=== PATIENT | female | born 1990 | race Caucasian/White ===

== ENCOUNTER → 2022-09-16 | Outpatient (CLI) | payer SELFPAY ==
--- NOTE | 2022-09-16 18:19 | US_ITS ---
STUDY: FIRST TRIMESTER OBSTETRICAL ULTRASOUND REASON FOR EXAM: Female, 32 years old. VIABILITY--HAS HAD BLEEDING WITH CLOTS TECHNIQUE: Transvaginal US was obtained to better visualized the ovaries. TECHNICAL QUALITY: Adequate. PRIOR ULTRASOUND: None. FINDINGS: There is no demonstrated intrauterine gestational sac. There is no demonstrated yolk sac. The placenta is non-visualized There is no demonstrated embryo ( pole). The estimated gestation age (EGA) by LMP is 7 weeks, 4 days. The estimated date of delivery (ANDREA) by LMP is 10.28.23. The uterus measures 7.8x6.3 cm. There is 11 x 13 mm demonstrated uterine fibroid. The cervix is closed. Endometrial stripe is 14mm. Fluid in the lower uterine segment. There is no intrauterine . The right ovary measures 3.2 x 2.3 cm. There is 20mm right ovarian cyst. There is no visualized right adnexal mass or complex lesion. The left ovary measures 3.2 x 1.6 cm. There is no left ovarian cyst. There is no visualized left adnexal mass or complex lesion. There is no fluid in the cul de sac. US/Transvaginal w/Preg US IMPRESSION: Fluid in the lower uterine segment. There is no intrauterine . Electronically Signed: Paul Fierro MD at 19:10 EDT ,
[2022-09-16 18:59] LABS: hCG Titer Quant., Serum 1017 mIU/mL (1-3)
== END | disposition home or self-care (01) ==
PROVIDERS: Visit Provider Obstetrics & Gynecology
DX: O36.80X0 Pregnancy with inconclusive fetal viability, not applicable or unspecified (principal)
CPT/HCPCS: 36415; 76817; 84702

== ENCOUNTER → 2022-09-18 | Outpatient (CLI) | payer SELFPAY ==
[2022-09-18 14:04] LABS: hCG Titer Quant., Serum 196 mIU/mL (1-3)
== END | disposition home or self-care (01) ==
PROVIDERS: Referring Provider Obstetrics & Gynecology; Visit Provider Obstetrics & Gynecology
DX: O20.0 Threatened abortion (principal)
CPT/HCPCS: 36415; 84702

== ENCOUNTER → 2022-09-24 | Outpatient (CLI) | payer SELFPAY ==
[2022-09-24 14:15] LABS: hCG Titer Quant., Serum 7 mIU/mL (1-3)
== END | disposition home or self-care (01) ==
LOC: LAB 13:22
PROVIDERS: Visit Provider Obstetrics & Gynecology
DX: O03.9 Complete or unspecified spontaneous abortion without complication (principal)
CPT/HCPCS: 36415; 84702

== ENCOUNTER → 2022-10-05 | Outpatient (CLI) | payer SELFPAY ==
[2022-10-05 13:00] LABS: hCG Titer Quant., Serum < 1 mIU/mL (1-3)
== END | disposition home or self-care (01) ==
LOC: LAB 11:17
PROVIDERS: Referring Provider Nurse Practitioner Women's Health; Visit Provider Nurse Practitioner Women's Health
DX: O36.80X0 Pregnancy with inconclusive fetal viability, not applicable or unspecified (principal); X58.XXXA Exposure to other specified factors, initial encounter
CPT/HCPCS: 36415; 84702

== ENCOUNTER → 2023-01-21 | Outpatient (CLI) | payer SELFPAY ==
[2023-01-21 16:55] LABS: Bacteria 0 SEEN /hpf (None Seen); Mucous, Urine 0 SEEN /hpf (<or=2+); Red Blood Cells-Urine 0 SEEN /hpf (0-5); White Blood Cells 0 SEEN /hpf (0-5)
[2023-01-21 17:17] LABS: Color, Urine Yellow (Yellow); Glucose, Dipstick Normal (Normal); Ketone-Dipstick Negative (Negative); Leukocyte Esterase-Dipstick Negative /ul (Negative); Nitrite-Dipstick Negative (Negative); Occult Blood-Urine Negative /ul (Negative); Protein-Dipstick Negative (Negative); Specific Gravity, Urine 1.025 (1.002-1.030); Urine Bilirubin Dipstick Negative (Negative); Urine Clarity Sl. Cloudy (Clear); Urine Urobilinogen Normal (Normal)
[2023-01-21 17:45] LABS: Squamous Epithelial Cells - UA 0-5 SEEN /hpf (5-10)
[2023-01-25 21:12] LABS: Chlamydia By Nucleic Acid AMP Negative (Negative); Gonococcus By Nucleic Acid AMP Negative (Negative)
== END | disposition home or self-care (01) ==
LOC: LABSPEC 15:46
PROVIDERS: Referring Provider Advanced Practice Midwife; Visit Provider Advanced Practice Midwife
DX: O09.90 Supervision of high risk pregnancy, unspecified, unspecified trimester (principal); Z3A.00 Weeks of gestation of pregnancy not specified
CPT/HCPCS: 81001; 87086; 87088; 87491; 87591

== ENCOUNTER → 2023-03-09 | Outpatient (CLI) | payer SELFPAY ==
[2023-03-09 11:02] LABS: Absolute Lymphocyte Count 2.32 X10^3/uL (0.83-4.51); Basophil# 0.05 X10^3/uL; Basophil% 0.5 % (0-1); Eosinophil# 0.15 X10^3/uL; Eosinophils% 1.4 % (0-5); Hematocrit 35.9 % (37-47); Hemoglobin 12.9 g/dL (12.0-15.0); Lymphocyte # 2.32 X10^3/ul (0.83-4.51); Lymphocyte % 20.9 % (19-41); Mean Corp Hgb Conc 35.9 g/dL (32-36); Mean Corpuscular Volume 91.8 fL (81-99); Mean Platelet Vol. 9.8 fl (6.2-12.0); Monocyte# 0.48 X10^3/uL; Monocyte% 4.3 % (0-10); NRBC Flagged by Analyzer 0 % (0-5); Neutrophil # 8.04 X10^3/uL (2.7-7.7); Neutrophil % 72.4 % (47-70); Platelet Count 270 K/mm3 (150-450); RBC Distribution Width CV 12.5 % (11.6-14.6); RBC Distribution Width SD 41.1 fl (35.1-43.9); Red Blood Count 3.91 M/mm3 (4.2-5.4); White Blood Count 11.1 K/mm3 (4.4-11.0)
[2023-03-09 11:13] LABS: Glucose Challenge Gest 1H 50g 116 mg/dL (70-140)
[2023-03-09 15:59] LABS: HIV - WCH Non-Reactive (Nonreactive); Hepatitis B Surface Antigen Non-Reactive (Nonreactive); Hepatitis C Antibody Non-Reactive (Nonreactive); Rubella IgG Reactive (Nonreactive); Syphilis Antibodies Non-reactive
[2023-03-10 06:08] LABS: V-Zoster IgG (Immunity) < 135 index (Immune >165)
== END | disposition home or self-care (01) ==
PROVIDERS: Referring Provider Advanced Practice Midwife; Visit Provider Advanced Practice Midwife
DX: O09.90 Supervision of high risk pregnancy, unspecified, unspecified trimester (principal)
CPT/HCPCS: 36415; 82950; 85025; 86703; 86762; 86780; 86787; 86803; 86850; 86900; 86901; 87340

== ENCOUNTER → 2023-03-29 | Outpatient (CLI) | payer SELFPAY ==
--- NOTE | 2023-03-29 13:16 | US_ITS ---
STUDY: SECOND AND THIRD TRIMESTER OBSTETRICAL ULTRASOUND REASON FOR EXAM: Female, 32 years old anatomy LMP: November 15, 2022. TECHNIQUE: Transabdominal and Transvaginal TECHNICAL QUALITY: Adequate. PRIOR ULTRASOUND: Comparison is made with prior study September 16, 2022. FINDINGS: There is a single intrauterine fetus. The fetus is in an transverse lie with the head on the maternal left side. There is demonstrated cardiac activity with a heart rate of 148 bpm. There is a normal amniotic fluid volume. The largest amniotic fluid pocket measures 4.8 sign of by 5 cm. The amniotic fluid index (KOBY) is within normal limits. The placenta is anterior in location and is not low lying. There are Grade 0 placental changes. The cervix measures 4.3 cm in length. The bilateral adnexal regions are normal. BIOMETRY: BPD: 4.7 cm: 20 weeks, 1 days HC: 16.7 cm: 19 weeks, 3 days AC: 15 cm: 20 weeks, 1 days FL: 3.1 cm: 19 weeks, 4 days CI: 84% FL/BPD: 66% FL/HC: FL/AC: 21% HC/AC: 1.12 age by current US: 19 weeks, 4 days. ANDREA by current US: August 19, 2022. Estimated weight: 325 grams, +/- 49 grams, 88 %. Age by LMP: 19 weeks, 1 days. ANDREA by LMP: August 22, 2022. ANATOMY: Gender: Male Cranium: Normal lateral ventricles. Normal choroid plexus. Normal cerebellum. Normal cisterna magna. Normal face, nose and lips. Chest: Normal 4-chamber heart. Abdomen/Pelvis: Normal diaphragm. Normal stomach. Normal abdominal wall. Normal cord insertion. Normal 3 vessel cord. Normal kidneys. Normal bladder. Spine: Normal cervical spine. Normal thoracic spine. Normal lumbar spine. Normal sacrum. Extremities: Normal bilateral upper extremities. Normal bilateral lower extremities. IMPRESSION: Single live intrauterine gestation with a mean gestational age of 19 weeks and 4 days. Electronically Signed: David Fonseca MD at 10:31 EDT , STUDY: FIRST TRIMESTER OBSTETRICAL ULTRASOUND REASON FOR EXAM: Female, 32 years old . Cervical length. LMP: November 15, 2022 TECHNIQUE: Transvaginal TECHNICAL QUALITY: Adequate. PRIOR ULTRASOUND: None. FINDINGS: Cervical length measures 4.3 cm. US/OB Anatomy w/ Transvaginal IMPRESSION: Cervical length measures 4.3 cm. Electronically Signed: David Fonseca MD at 10:32 EDT ,
== END | disposition home or self-care (01) ==
PROVIDERS: Referring Provider Obstetrics & Gynecology; Visit Provider Obstetrics & Gynecology
DX: Z36.2 Encounter for other antenatal screening follow-up (principal)
CPT/HCPCS: 76805; 76817

== ENCOUNTER → 2023-04-13 | Outpatient (CLI) | payer SELFPAY | END | disposition home or self-care (01) | LOC: LABSPEC 12:07 | PROVIDERS: Referring Provider Obstetrics & Gynecology; Visit Provider Obstetrics & Gynecology | DX: O09.90 Supervision of high risk pregnancy, unspecified, unspecified trimester (principal); Z3A.00 Weeks of gestation of pregnancy not specified | CPT/HCPCS: 87491; 87591 ==

== ENCOUNTER → 2023-06-04 | Outpatient (CLI) | payer SELFPAY ==
[2023-06-04 10:37] LABS: Absolute Lymphocyte Count 2.87 X10^3/uL (0.83-4.51); Absolute Neutrophil Count 9.6 X10^3/uL (2.0-7.7); Basophil# 0.06 X10^3/uL; Basophil% 0.4 % (0-1); Eosinophil# 0.23 X10^3/uL; Eosinophils% 1.7 % (0-5); Hemoglobin 11.1 g/dL (12.0-15.0); Lymphocyte # 2.87 X10^3/ul (0.83-4.51); Lymphocyte % 20.8 % (19-41); Mean Corp Hgb Conc 33.6 g/dL (32-36); Mean Corpuscular Hgb 31.3 pg (27.0-32.0); Mean Platelet Vol. 9.6 fl (6.2-12.0); Monocyte# 0.84 X10^3/uL; Monocyte% 6.1 % (0-10); NRBC Flagged by Analyzer 0 % (0-5); Neutrophil # 9.62 X10^3/uL (2.7-7.7); Neutrophil % 69.6 % (47-70); Platelet Count 284 K/mm3 (150-450); RBC Distribution Width CV 11.9 % (11.6-14.6); RBC Distribution Width SD 39.9 fl (35.1-43.9); Red Blood Count 3.55 M/mm3 (4.2-5.4); White Blood Count 13.8 K/mm3 (4.4-11.0)
[2023-06-04 10:51] LABS: Glucose Challenge Gest 1H 50g 102 mg/dL (70-140)
[2023-06-04 11:38] LABS: HIV - WCH Non-Reactive (Nonreactive); Syphilis Antibodies Non-reactive
== END | disposition home or self-care (01) ==
PROVIDERS: Obstetrics & Gynecology; Referring Provider Obstetrics & Gynecology; Visit Provider Obstetrics & Gynecology
DX: O09.90 Supervision of high risk pregnancy, unspecified, unspecified trimester (principal); Z3A.00 Weeks of gestation of pregnancy not specified
CPT/HCPCS: 36415; 82950; 85025; 86703; 86780; 86850; 86900; 86901

== ENCOUNTER → 2023-08-05 | Outpatient (CLI) | payer SELFPAY ==
--- NOTE | 2023-08-05 16:24 | US_ITS ---
STUDY: SECOND AND THIRD TRIMESTER OBSTETRICAL ULTRASOUND REASON FOR EXAM: Female, 33 years old desires tolac, LMP: November 15, 2022 TECHNIQUE: Transabdominal TECHNICAL QUALITY: Adequate. PRIOR ULTRASOUND: None. FINDINGS: There is a single intrauterine fetus. The fetus is in a cephalic presentation. There is demonstrated cardiac activity with a heart rate of 147 bpm. There is a normal amniotic fluid volume. The largest amniotic fluid pocket measures 4.9 cm. The amniotic fluid index (KOBY) is 13.8 cm. The placenta is anterior in location and is not low lying. There are Grade 1 placental changes. The cervical length was not measured due to the head positioning. The adnexal regions are not visualized. BIOMETRY: BPD: 9.1 cm: 37 weeks, 0 days HC: 34.5 cm: 39 weeks, 6 days AC: 36.2 cm: 40 weeks, 1 days FL: 7.2 cm: 37 weeks, 0 days CI: 74.5 FL/BPD: 79.3 FL/HC: FL/AC: 20 HC/AC: 1.0 age by current US: 38 weeks, 4 days. ANDREA by current US: August 15, 2023. Estimated weight: 3630 grams, +/- 545 grams, 88 %. age by prior US: 38 weeks, 0 days. ANDREA by prior US: August 19, 2023. Age by LMP: 37 weeks, 4 days. ANDREA by LMP: August 22, 2023. US/OB Limited With Biometrics IMPRESSION: Single live uterine gestation with a mean gestational age of 38 weeks. The measurements obtained today with a normal expected range. Electronically Signed: David Fonseca MD at 14:10 EST ,
--- OUTSIDE RECORDS SUMMARY | 2023-08-05 19:32 | XMS RPT_ITS | CCD ---
Author Name Unknown Address [address] [place] [address] Organization [facility] Care Team Providers Care Enforcement Safety Officer Name Role Phone Reema Multani Unavailable Unavailable Reema Multani Unavailable Unavailable Unavailable Reema Multani Unavailable Rj Aj Unavailable Medications Completed/Discontinued Medications Medication Drug Class(es) Dates Sig (Normalized) Sig (Original) Clementine 0.35 MG Oral Tablet (4 sources) Start: 03-04-2021 take 1 tablet by mouth once daily Clementine 0.35 MG Oral Tablet TAKE ONE TABLET BY MOUTH DAILY Quantity: 1 Refills: 12 Ordered: 04-Mar-2021 Rj Aj MD Start : 04-Mar-2021 Active Deblitane 0.35 MG Oral Tablet (1 source) Start: 01-28-2022 take 1 tablet by mouth once daily Deblitane 0.35 MG Oral Tablet TAKE 1 TABLET BY MOUTH DAILY Quantity: 28 Refills: 12 Ordered: 28-Jan-2022 Rj Aj MD Start : 28-Jan-2022 Active 0.4 ml enoxaparin sodium 100 mg/ml prefilled syringe (2 sources) Low Molecular Weight Heparin Start: 02-18-2021 inject 40 mg by subcutaneous injection once daily Enoxaparin Sodium 40 MG/0.4ML Subcutaneous Solution INJECT 40 MG Daily Quantity: 30 Refills: 0 Ordered: 18-Feb-2021 Tang Rios DO Start : 18-Feb-2021 Active Vitamin 27-0.8 MG Oral Tablet (1 source) Vitamin 27-0.8 MG Oral Tablet Refills: 0 DO Active Vitamin 27-0.8 MG Oral Tablet (17 sources) Vitamin 27-0.8 MG Oral Tablet Quantity: 0 Refills: 0 Ordered: 10-Jul-2020 DO Active NEGATED: Highlighted row has not occurred!No Current Medications (1 source) No Current Medications Problems Active Problems Problem Classification Problem Date Documented Da te Episodic/Chronic Coagulation and hemorrhagic disorders (17 sources) Heterozygous Factor V Leiden mutation; Translations: [Primary hypercoagulable state] Chronic distress and abnormal forces of labor (1 source) Arrested active phase of labor; Translations: [Secondary uterine inertia, unspecified as to episode of care or not applicable] 02-05-2021 Episodic Immunizations and screening for infectious disease (20 sources) Patient encounter status; Translations: [Screening examination for venereal disease] Episodic Other aftercare (4 sources) Surgical follow-up; Translations: [Follow-up examination, following surgery, unspecified] Episodic Other complications of ; puerperium affecting management of mother (4 sources) Deliveries by ; Translations: [ delivery, without mention of indication, unspecified as to episode of care or not applicable] Episodic Past or Other Problems Problem Classification Problem Date Documented Da te Episodic/Chronic Unclassified (3 sources) Patient encounter status; Translations: [Encounter for Papanicolaou smear of cervix] Unclassified (18 sources) Finding of menstrual bleeding; Translations: [Menstruation] Results Test Name Value Interpretation Reference Range Facil ity Vital Signs Date Time Vital Sign Value Performing Clinician Facility 08-20-2021 13:58-0500 Body height 162.56 cm Reema Duffyel Work Phone: [employer] Work Phone: 08-20-2021 13:58-0500 Body mass index (BMI) [Ratio] 32.62 kg/m2 Reema Duffyel Work Phone: [employer] Work Phone: 08-20-2021 13:58-0500 Body surface area Derived from formula 1.91 m2 Reema Multani Work Phone: [employer] Work Phone: 02-16-2022 13:58-0500 Body temperature 97.8 [degF] Reema Multani Work Phone: [place] [address] [address] Work Phone: 08-20-2021 13:58-0500 Body weight 86.2 kg Reema Multani Work Phone: [place] [address] [address] Work Phone: 08-20-2021 13:58-0500 Diastolic blood pressure 68 mm[Hg] Reema Multani Work Phone: [place] [address] [address] Work Phone: 08-20-2021 13:58-0500 Systolic blood pressure 114 mm[Hg] Reema Multani Work Phone: [place] [address] [address] Work Phone: 03-04-2021 13:37-0400 Body height 162.56 cm Reema Multani Work Phone: [place] [address] [address] Work Phone: 03-04-2021 13:37-0400 Body mass index (BMI) [Ratio] 32.2 kg/m2 Reema Multani Work Phone: [place] [address] [address] Work Phone: 03-04-2021 13:37-0400 Body surface area Derived from formula 1.9 m2 Reema Multani Work Phone: [place] [address] [address] Work Phone: 03-04-2021 13:37-0400 Body temperature 98.2 [degF] Reema Multani Work Phone: [place] [address] [address] Work Phone: 03-04-2021 13:37-0400 Body weight 85.1 kg Reema Multani Work Phone: [place] [address] [address] Work Phone: 03-04-2021 13:37-0400 Diastolic blood pressure 66 mm[Hg] Reema Multani Work Phone: [place] [address] Work Phone: 03-04-2021 13:37-0400 Systolic blood pressure 110 mm[Hg] Reema Multani Work Phone: [place] [address] Work Phone: 02-18-2021 11:08-0400 Body height 162.56 cm Reema Multani Work Phone: [place] [address] Work Phone: 02-18-2021 11:08-0400 Body mass index (BMI) [Ratio] 31.96 kg/m2 Reema Multani Work Phone: [place] [address] [address] Work Phone: 02-18-2021 11:08-0400 Body surface area Derived from formula 1.9 m2 Reema Multani Work Phone: [place] [address] [address] Work Phone: 02-18-2021 11:08-0400 Body temperature 97.3 [degF] Reema Multani Work Phone: [place] [address] [address] Work Phone: 02-18-2021 11:08-0400 Body weight 84.46 kg Reema Multani Work Phone: [place] [address] [address] Work Phone: 02-18-2021 11:08-0400 Diastolic blood pressure 68 mm[Hg] Reema Duffyel Work Phone: [place] [address] Work Phone: 02-18-2021 11:08-0400 Systolic blood pressure 108 mm[Hg] Reema Multani Work Phone: [place] [address] [address] Work Phone: 02-07-2021 12:29-0400 Body temperature 98.24 [degF] Reema Nerissa Other Phone: [facility] 02-07-2021 12:29-0400 Diastolic blood pressure 82 mm[Hg] Reema Nerissa Other Phone: [facility] 02-07-2021 12:29-0400 Heart rate 93 /min Reema Nerissa Other Phone: [facility] 02-07-2021 12:29-0400 Respiratory rate 16 /min Reema Duffyel Other Phone: [facility] 02-07-2021 12:29-0400 SaO2% (BldA) [Mass fraction] 97 % Reema Multani Other Phone: [facility] 02-07-2021 12:29-0400 Systolic blood pressure 118 mm[Hg] Reema Nerissa Other Phone: [facility] 01-29-2021 08:39-0400 Body height 162.56 cm Reema Multani Work Phone: [place] [address] [address] Work Phone: 01-29-2021 08:39-0400 Body mass index (BMI) [Ratio] 34.44 kg/m2 Reema Maryjo Nerissa Work Phone: [place] [address] [address] Work Phone: 01-29-2021 08:39-0400 Body surface area Derived from formula 1.96 m2 Reema Maryjo Nerissa Work Phone: [facility] [employer] Work Phone: 01-29-2021 08:39-0400 Body temperature 96.9 [degF] Reema Multani Work Phone: [place] [address] [address] Work Phone: 01-29-2021 08:39-0400 Body weight 91 kg Reema Multani Work Phone: [place] [address] [address] Work Phone: 01-29-2021 08:39-0400 Diastolic blood pressure 72 mm[Hg] Reema Multani Work Phone: [place] [address] [address] Work Phone: 01-29-2021 08:39-0400 Systolic blood pressure 102 mm[Hg] Reema Multani Work Phone: [place] [address] [address] Work Phone: 01-21-2021 08:51-0400 Body height 162.56 cm Reema Multani Work Phone: [place] [address] Work Phone: 01-21-2021 08:51-0400 Body mass index (BMI) [Ratio] 34.55 kg/m2 Reema Multani Work Phone: [place] [address] [address] Work Phone: 01-21-2021 08:51-0400 Body surface area Derived from formula 1.96 m2 Reema Multani Work Phone: [place] [address] [address] Work Phone: 01-21-2021 08:51-0400 Body temperature 96.8 [degF] Reema Multani Work Phone: [place] [address] [address] Work Phone: 01-21-2021 08:51-0400 Body weight 91.3 kg Reema Multani Work Phone: [place] [address] [address] Work Phone: 01-21-2021 08:51-0400 Diastolic blood pressure 70 mm[Hg] Reema Maryjo Nerissa Work Phone: [place] [address] Work Phone: 01-21-2021 08:51-0400 Systolic blood pressure 112 mm[Hg] Reema Maryjo Nerissa Work Phone: [place] [address] [address] Work Phone: 01-14-2021 08:51-0400 Body height 162.56 cm Reema Maryjo Duffyel Work Phone: [place] [address] Work Phone: 01-14-2021 08:51-0400 Body mass index (BMI) [Ratio] 33.87 kg/m2 Reema Maryjo Nerissa Work Phone: [place] [address] [address] Work Phone: 01-14-2021 08:51-0400 Body surface area Derived from formula 1.94 m2 Reema Duffyel Work Phone: [place] [address] Work Phone: 01-14-2021 08:51-0400 Body temperature 96.8 [degF] Reema Maryjo Nerissa Work Phone: [place] [address] [address] Work Phone: 01-14-2021 08:51-0400 Body weight 89.5 kg Reema Maryjo Nerissa Work Phone: [place] [address] [address] Work Phone: 01-14-2021 08:51-0400 Diastolic blood pressure 70 mm[Hg] Reema Maryjo Nerissa Work Phone: [place] [address] [address] Work Phone: 01-14-2021 08:51-0400 Systolic blood pressure 110 mm[Hg] Reema M Nerissa Work Phone: [place] [address] Work Phone: 12-31-2020 08:34-0400 Body height 162.56 cm Reema Multani Work Phone: [place] [address] Work Phone: 12-31-2020 08:34-0400 Body mass index (BMI) [Ratio] 33.6 kg/m2 Reema Multani Work Phone: [place] [address] Work Phone: 12-31-2020 08:34-0400 Body surface area Derived from formula 1.94 m2 Reema Multani Work Phone: [place] [address] Work Phone: 12-31-2020 08:34-0400 Body temperature 97.5 [degF] Reema Multani Work Phone: [place] [address] Work Phone: 12-31-2020 08:34-0400 Body weight 88.8 kg Reema Multani Work Phone: [place] [address] [address] Work Phone: 12-31-2020 08:34-0400 Diastolic blood pressure 68 mm[Hg] Reema Multani Work Phone: [place] [address] Work Phone: 12-31-2020 08:34-0400 Systolic blood pressure 112 mm[Hg] Reema Multani Work Phone: [place] [address] Work Phone: 12-17-2020 08:43-0400 Body height 162.56 cm Reema Multani Work Phone: [place] [address] Work Phone: 12-17-2020 08:43-0400 Body mass index (BMI) [Ratio] 33.38 kg/m2 Reema Multani Work Phone: [place] [address] Work Phone: 12-17-2020 08:43-0400 Body surface area Derived from formula 1.93 m2 Reema Multani Work Phone: [place] [address] [address] Work Phone: 12-17-2020 08:43-0400 Body temperature 97.8 [degF] Reema Multani Work Phone: [place] [address] [address] Work Phone: 12-17-2020 08:43-0400 Body weight 88.2 kg Reema Multani Work Phone: [place] [address] [address] Work Phone: 12-17-2020 08:43-0400 Diastolic blood pressure 72 mm[Hg] Reema Multani Work Phone: [place] [address] [address] Work Phone: 12-17-2020 08:43-0400 Systolic blood pressure 110 mm[Hg] Reema Multani Work Phone: [place] [address] [address] Work Phone: 11-19-2020 08:38-0400 Body height 162.56 cm Reema Multani Work Phone: [place] [address] [address] Work Phone: 11-19-2020 08:38-0400 Body mass index (BMI) [Ratio] 32.58 kg/m2 Reema Multani Work Phone: [place] [address] [address] Work Phone: 11-19-2020 08:38-0400 Body surface area Derived from formula 1.91 m2 Reema Multani Work Phone: [facility] [address] Work Phone: 11-19-2020 08:38-0400 Body temperature 97.5 [degF] Reema Multani Work Phone: [facility] [address] Work Phone: 11-19-2020 08:38-0400 Body weight 86.1 kg Reema Multani Work Phone: [facility] [address] Work Phone: 11-19-2020 08:38-0400 Diastolic blood pressure 66 mm[Hg] [facility]ema Multani [facility] [address] Work Phone: 11-19-2020 08:38-0400 Systolic blood pressure 112 mm[Hg] Reema Multani [facility] [address] Work Phone: 08-05-2020 10:59-0500 BMI (Body Mass Index) 29.93 kg/m2 [facility] [address] Work Phone: 08-05-2020 10:59-0500 Body Temperature 97.1 [degF] Reema Multani [facility] [address] Work Phone: 08-05-2020 10:59-0500 Body weight 79.09 kg Reema Multani [facility] [address] Work Phone: 08-05-2020 10:59-0500 BP Diastolic 72 mm[Hg] Reema Multani [facility] [address] Work Phone: 08-05-2020 10:59-0500 BP Systolic 118 mm[Hg] Reema Multani [facility] [address] Work Phone: 08-05-2020 10:590500 BSA (Body Surface Area) 1.85 m2 Reema Multani [facility] [employer] Work Phone: 08-05-2020 10:590500 Height 162.56 cm Reema Multani [facility] [address] Work Phone: Encounters Encounter Date Encounter Type Care Provider Facility Start: 01-28-2022 Rx Renewal Reema benitez Work Phone: [place] [employer] Work Phone: Start: 08-27-2021 Chart Update Reema benitez Work Phone: [place] [employer] Work Phone: Start: 08-20-2021 Periodic preventive med est patient 18-39 yrs Reema Multani Work Phone: [employer] Work Phone: Start: 03-04-2021 Patient encounter procedure Reema Multani Work Phone: [facility] [employer] Work Phone: Start: 02-18-2021 Postop follow up vis it related to original px Reema Multani Work Phone: [employer] [employer] Work Phone: Start: 02-04-2021 End: 02-07-2021 Evaluation and management of inpatient Rj Aj [facility] Start: 02-03-2021 Chart Update Reema Maryjo benitez Work Phone: [facility] [place] [facility] [employer] Work Phone: Start: 01-29-2021 Office outpatient vi sit 15 minutes Reema Duffyel Work Phone: [employer] Work Phone: Start: 01-21-2021 Office outpatient vi sit 15 minutes Reema Sibley Nerissa Work Phone: [facility] [address] [address] Work Phone: Start: 01-16-2021 Chart Update Reema Sibley Nag el Work Phone: [facility] [address] [address] Work Phone: Start: 01-15-2021 Chart Update Reema Maryjo Nag el Work Phone: [facility] [address] [address] Work Phone: Start: 01-14-2021 EPVOB, Provider: Rj Aj, Status: Pen, Time: 8:45 AM Reema Duffyel Work Phone: [place] [address] [address] Work Phone: Start: 01-14-2021 Office outpatient vi sit 15 minutes Reema Duffyel Work Phone: [place] [address] [address] Work Phone: Start: 01-13-2021 AUDIT Reema Maryjo Nag el Work Phone: [place] [address] [address] Work Phone: Start: 12-17-2020 Office outpatient vi sit 15 minutes Reema Maryjo Nerissa Work Phone: [facility] [address] [address] Work Phone: Start: 12-03-2020 Office outpatient vi sit 15 minutes Reema Maryjo Nerissa Work Phone: [facility] [address] [address] Work Phone: Start: 11-27-2020 Chart Update Reema Maryjo Nag el Work Phone: [facility] [address] [address] Work Phone: Start: 11-27-2020 Chart Update Reema Maryjo Nag el Work Phone: [place] [address] [address] Work Phone: Start: 08-05-2020 Patient encounter procedure Reema Multani [employer] Phone: Start: 07-10-2020 Patient encounter procedure [facility] Phone: Cancer cervix - screening done Reema Multani Work Phone: [employer] Phone: Procedures Date Procedure Procedure Detail Performing Clinician Start: 02-04-2021 Antibody screen Plan of Treatment Date Care Activity Detail Author Start: 08-21-2022 Patient encounter procedure ANNUAL, Provider: Rj Aj, Status: Pen, Time: 2:00 PM [employer] Work Phone: Start: 08-20-2021 Patient encounter procedure ANNUAL, Provider: Rj Aj, Status: Pen, Time: 2:00 PM [employer] Work Phone: Start: 03-04-2021 Patient encounter procedure [facility] Start: 03-04-2021 PPV, Provider: Rj Aj, Status: Pen, Time: 1:30 PM PPV, Provider: Rj Aj, Status: Pen, Time: [facility]:30 [facility]: Start: 02-05-2021 End: 02-06-2022 HYDROmorphone Injectable 0.2 mg IntraVenous Push Every 4 Hours PRN ; (DILAUDID)DOSE = 0.4 mg IntraVenous Push Every 3 Hours, PRN breakthrough painClinician Notes: Conditional Order: START AFTER MECHANICAL SHOVEL OPERATOR is discontinued. Start: 05-Feb-2021 End: 05-Feb-2022 Ordered: 04-Feb-2021 Rj Aj R Intent Comments: Conditional Order: START AFTER MECHANICAL SHOVEL OPERATOR is discontinued. [facility] Payers Date Payer Category Payer Unknown Social History Date Type Detail Facility Assertion Tobacco smoking consumption unknown (finding) [employer] Phone: Sexually active Sexually active [place] [address] [address] Work Phone: Tobacco smoking consumption unknown [facility] Functional Status Date Assessment Result Facility Functional observable [facility] NEGATED: Highlighted row Functional performance Functional status health issues are not documented Disease [place] [address] [address] Work Phone: Mental Status Date Assessment Result Facility 02-07-2021 Cognitive functi ons :11 [facility] NEGATED: Highlighted row Cognitive function [Interpretation] Cognitive status health issues are not documented Disease [place] [address] [address] Work Phone: Clinical Note 08-20-2021 Note Date & Type Note Facility 08-20-2021 Note 8 Date of Procedure: 08/20/2021 Pathologist: [facility], Cytology Date Reported: 08/27/2021 Date Received: 08/20/2021 Submitting Physician: RJ AJ MD FINAL CYTOLOGICAL INTERPRETATION A. THINPREP PAP CERVICAL: Specimen adequacy: SATISFACTORY FOR EVALUATION. Quality Indicator: Endocervical/transformation zone component is present. General Categorization: NEGATIVE FOR INTRAEPITHELIAL LESION OR MALIGNANCY. Descriptive Interpretation: CELLULAR EVIDENCE OF PARAKERATOSIS. Ancillary Testing: Specimen does not meet the requisition-stated criteria for HPV testing. See Pap test interpretation above. QC review performed at [facility], [address] [place], [place] [id number] This specimen has been analyzed by the AegisPrep Imaging System ([employer] an automated imaging and review system, which assists the laboratory in evaluating cells on ThinPrep Pap tests. Following automated imaging, selected beltran from every slide were reviewed by a grass farmer and/or pathologist. Electronically Signed Out By [facility], Cytology//[facility] By the signature on this report, the individual or group listed as making the Final Interpretation/Diagnosis certifies that they have reviewed this case. Educational Note: Cervical cytology is a screening procedure primarily for squamous cancers and precursors and has associated false-negative and false-positive results as evidenced by published data. Your patient?s test should be interpreted in this context, together with patient?s history and clinical findings. Regular sampling and follow-up of unexplained clinical signs and symptoms are recommended to minimize false negative results. Clinical History Date of Last Menstrual Period: 08/13/2021 Other Clinical Conditions: HPV Reflex for ASC-US only - Include HPV Genotype Annual Clinical Diagnosis History: Encounter for Papanicolaou smear of cervix - (Z12.4); Pap test, as part of routine gynecological examination - (Z01.419) Source of Specimen A: THINPREP PAP CERVICAL [facility] Department of Pathology [id number] [place] [address] Discharge summary note 02-07-2021 Note Date & Type Note Facility 02-07-2021 Note Send Summary: Discharge Summary Providers: Provider RoleProvider Name AttendingRj Aj Note Recipients: none Discharge: Summary: Admission Date: .04-Feb-2021 05:11:00 Discharge Date: 07-Feb-2021 Attending Physician at Discharge: Rj Aj Admission Reason: Term Final Discharge Diagnoses: Status post delivery Procedures: Primary low transverse section Condition at Discharge: Satisfactory Disposition at Discharge: .Home Vital Signs: T PRBPSpO2 [id number]/[id number]% Date/Time02/07 4:148/6 4:148/6 4:148/6 4:148/6 4:14 Range(36.6C - 37.1C ) (73 - 86 ) (16 - 16 ) (102 - 116 )/ (65 - 73 ) (97% - 98% ) Highest temp of 37.1 C was recorded at 8/5 13:03 Physical Exam: Lungs: Clear bilaterally Heart: Regular rate and rhythm Abdomen: Soft and nontender Hospital Course: Patient underwent a primary section due to failure to progress for a viable male infant on February 04, 2021. She was afebrile throughout hospital course, and regained both bowel and bladder function. She is breast-feeding and was discharged on postop day 2. Discharge Information: and Continuing Care: Lab Results - Pending: None Radiology Results - Pending: None [place] Suicide Risk: negative Discharge Instructions: Activity: Return to normal activity as tolerated Nutrition/Diet: Regular Follow Up Appointments: Follow-Up - OB Provider: Physician/Dept/Service: Rj Aj MD Call to Schedule in: 2 weeks Discharge Medications: [id number] Tylenol and Motrin Electronic Signatures: Rj Aj) (Signed 07-Feb-2021 07:14) Authored: Send Summary, Summary Content, Ongoing Care, Note Completion Last Updated: 07-Feb-2021 07:14 by Rj Aj) [facility] Clinical Note 02-05-2021 Note Date & Type Note Facility 02-05-2021 Note Provider Information : Maternal Delivery Information: Delivery Type: delivery Did this pt receive corticosteroids at any time during this : No Was chorioamnionitis diagnosed during this labor: no What antibiotic(s) were administered during labor and/or pre-incision: Azithromycin, Cefazolin Rupture of Membranes: artificial Spontaneous Labor: no Induction or Scheduled : induction Is patient at delivery >/= to 37 to < 39 completed weeks of gestation: no Delivery Anesthesia: epidural Type: primary Schedule: non-scheduled / non-urgent Pre-op Dx: Failure to progress Presentation/Lie: vertex Vertex Presentation: occiput transverse Skin Incision Type: Pfannenstiel Uterine Incision Type: low transverse Delivery Complications: none QBL (mL): 535 mL Blood Products Transfused during Delivery (indicate number of units given): none Placenta: manual Choose Baby: A Cord Characteristics: no anomalies noted Delayed Cord Clamping (equal to or greater than 30 seconds): no Day of Delivery (Baby A): 04-Feb-2021 Gestational Age at Delivery (wk.days): 39 Term: term 37.0 to 41.6 weeks Live : yes Post-op Dx: same as pre-op dx Delivery Provider: Rj Aj MD Storeroom Attendant: Tang Rios DO Dictation: not applicable - note contains Operative Report Operative Report: OPERATIVE FINDINGS: Viable male delivered. Clear amniotic fluid. Both ovaries and tubes appeared normal. PROCEDURE: Patient brought into the operating room, placed in supine position. She received 2 g of IV Ancef and 500 mg of IV azithromycin, and had the sequential compression devices placed on the lower extremities. After an adequate level of epidural anesthesia, the patient was placed in supine position with lateral hip tilt. Carlos catheter had been placed preoperatively. The abdomen was prepped and draped in usual sterile fashion. Pfannenstiel incision was made through the skin, carried down through fat and fascia. Fascia was incised transversely. Peritoneum was identified, entered sharply and extended in a vertical fashion. Bladder blade was placed. The bladder flap was developed with sharp and blunt dissection. Bladder blade was replaced. A lower uterine incision was made sharply and then extended laterally with bandage scissors, with the batch operator's hand between the scissors and the parts. There was noted clear amniotic fluid. The head was delivered easily, followed by the remainder of the . Cord was doubly clamped and cut, the handed off to awaiting Labor and Delivery nurse. The placenta was noted to be in anterior placement. The placenta was manually removed. The uterus was explored for any remnants of placenta and none were found. The lower uterine incision was closed using 0 chromic in a running interlocking fashion, followed by a second layer of 0 chromic in a running imbricating interlocking fashion.. Hemostasis was found to be excellent. Both ovaries and tubes were inspected and appeared normal in appearance. The lower uterine incision was re-inspected and found to be hemostatic. The peritoneum was then closed using 2-0 Vicryl in a running fashion. Rectus muscle was reapproximated in the midline with 2-0 Vicryl in a running fashion. The fascia was closed using 0-PDS in a running fashion. Subcutaneous layer was thoroughly lavaged with warm normal saline. Hemostasis was obtained with cautery and the subcutaneous layer was closed with 2-0 Vicryl in an interrupted fashion. The skin was closed using 3-0 Monocryl. Quantitative blood loss was 535 ml. Sponge and needle counts were correct x 2. Tylenol suppository was placed rectally. Patient tolerated the procedure well and was taken to PACU in good condition. Pnp: Dr. Rios as needed for appropriate retraction, visualization and delivery of the during the performance of the surgery. Hemorrhage Risk Screen: Hemorrhage Medium Risk Factors (T&S) (2 or more medium risks Go to High Risk section & obtain T&C)IOL with oxytocin or cervical ripening, Hemorrhage Risk Assessmenthemorrhage risks reviewed and additional factors added if applicable Hemorrhage Risk Score HighPatient is at High Risk for an OB hemorrhage. Order Type & Cross. Score Calculation - IT Use Only2 Electronic Signatures: Rj Aj) (Signed 04-Feb-2021 22:44) Authored: Provider Information, Hemorrhage Risk, Note Completion Last Updated: 04-Feb-2021 22:44 by Rj Aj) [facility] Clinical Note 02-04-2021 Note Date & Type Note Facility 02-04-2021 Note HPI/OB History: Care Provider: Rj Aj MD [facility] Descriptive Info: HPI Patient is a 30 year old white female 1 Para 0, EDC February 11, 2021. Patient presents to Labor and Delivery for induction of labor due to maternal discomfort. 01-28-2021 U/S @ 38w 4d, EFW = 3515g (7# 12oz). Patient is Heterozygous for Factor V Leiden. Past medical history: No prior surgery Family history: Noncontributory Social history: Denies smoking or ethanol consumption Review of Systems: Constitutional: No fever or chills Respiratory: No shortness of breath, or cough Cardiovascular: No chest pain or syncope Breasts: No breast pain, no masses, no nipple discharge Gastrointestinal: No nausea, vomiting, or diarrhea, no abdominal pain Genitourinary: No dysuria or frequency Gynecology: Negative except as noted in history of present illness All other: All other systems reviewed and negative for complaint PHYSICAL EXAMINATION: Well-developed, well nourished, in no acute distress, alert and oriented x three, is pleasant and cooperative. HEENT: Clear. Pupils equal, round and reactive to light and accommodation. Extraocular muscles are intact. Oral mucosa pink without exudate. NECK: No lymphadenopathy, no thyromegaly. LUNGS: Clear bilaterally. HEART: Regular rate and rhythm without murmurs. ABDOMEN: Normoactive bowel sounds, soft and nontender, no guarding or rebound tenderness, no CVA tenderness.Limited bedside ultrasound confirms vertex presentation. EXTREMITIES: No clubbing, cyanosis or edema. NEUROLOGIC: Cranial nerves II-XII grossly intact. : Normal external female genitalia, normal vulva, normal vagina. Normal urethral meatus, urethra and bladder. Vaginal exam reveals cervix to be 1 cm dilated, 50% effaced, -2 station. Carlos bulb was placed and inflated with 60 mL of saline. Carlos catheter was then taped to the right inner thigh with traction. Labs: Labs: Labs: Blood Typed Date: 05-Aug-2020 Blood Type: O positive Antibody Screen Results: negative Chlamydia Date: 05-Aug-2020 Chlamydia Results: negative Gonorrhea Date: 05-Aug-2020 Gonorrhea Results: negative Group B Strep Date: 14-Jan-2021 Strep Results: negative GTT (dd-mmm-yy): 13-Nov-2020 GTT result: 173 GTT - Extended (dd-mmm-yy): 27-Nov-2020 GTT - Extended - Fastin GTT - Extended - 1 hour: 133 GTT - Extended - 2 hour: 124 GTT - Extended - 3 hour: 113 HBsAG Date: 05-Aug-2020 HBsAG Results: negative HIV Date: 05-Aug-2020 HIV Results: negative Rubella Date: 05-Aug-2020 Rubella Results: immune Rubella Comments: Result Value POSITIVE Syphilis (mmm-dd-yyyy): 05-Aug-2020 Syphilis Results: negative Antepartum/: Antepartum/PP: Final [id number] Current EGA:39 Patient is > or = 35.0 wks EGAyes Determined byLeopolds EFW (kg)3.515 kilogram(s) EFW (lb)7 pound(s) EFW (oz)12 ounce(s) Presentationcephalic presentation verified bybedside ultrasound, cervical exam Hemorrhage Medium Risk Factors (T&S) (2 or more medium risks Go to High Risk section & obtain T&C)IOL with oxytocin or cervical ripening Hemorrhage Risk Assessmenthemorrhage risk completed on admission Hemorrhage Risk ScorePatient is at Medium Risk for an OB hemorrhage. Order Type & Screen. Score Calculation - IT Use Only1 TOLACno Social History: Social History: Smoking Statusnever smoker (1) Alcohol Usedenies(1) Drug Usedenies (1) Drug 2 Usedenies (1) Allergies: No Known Allergies: Medications Prior to Admission: Outpatient Meds have not been reviewed. Objective: Objective Information: T PRBPSpO2 [id number]/7395% Date/Time8 6:228/3 6:218/3 6:22 Range (95 - 112 ) (111 - 111 )/ (73 - 73 ) (95% - 95% ) Recent Lab Results: Results: CBC: 11/13/2020 14:23 \ Hgb / \ 12.6 / WBC Plt 11.8 H 287 / Hct \ / 37.5 \ RBC: 3.95 L MCV: 95 Assessment and Plan: Problem List: Additional Dx: 39 weeks gestation of : Assessment: 1. Term 2. Induction with Pitocin/carlos 3. Anticipate normal spontaneous vaginal delivery Electronic Signatures: Rj Aj) (Signed 04-Feb-2021 07:25) Authored: HPI/OB History, Labs, Antepartum/PP, Social History, Allergies, Medications Prior to Admission, Objective, Assessment and Plan, Note Completion Last Updated: 04-Feb-2021 07:25 by Rj Aj) References: 1. Data Referenced From Patient Profile - OB v3 04-Feb-2021 06:41 [facility] Evaluation note <item> Note Date & Type Note Facility Evaluation note Cardiovascular: S1 S 2 RRR, no murmursExtremities: no calf tenderness, reflexes 2+Constitutional: alert, orientedRespiratory/Thorax: normal respiratory effort, lungs clear, no wheezes or rhonchi [facility] History of Present illness Narrative Note Date & Type Note Facility History of Present illness Narrative 30-year-old presents for 2-week postop status post primary for arrest. Patient is she is doing well. Pain controlled. Bleeding improving. Bowel and bladder function returned to normal. doing well. Patient is no acute concerns [employer] Work Phone: History of Present illness Narrative Note Date & Type Note Facility History of Present illness Narrative Patient presents for checkup. She is breast and bottlefeeding. She is a heterozygote for factor V Leiden. [employer] Work Phone: History of Present illness Narrative Note Date & Type Note Facility History of Present illness Narrative Presents for annual exam. She voices no complaints and is doing well. Denies any bowel or bladder problems. Denies any breast problems. She is on progesterone only control pills due to history of factor V Leiden. 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 [employer] Work Phone: Hospital Discharge instructions <item><item><item><item> Note Date & Type Note Facility Hospital Discharge instructions Activity:Return to normal activity as tolerated.Patient Instructions:Pelvic Rest: DO NOT place anything in vagina until cleared by OB Provider.Follow-Up - OB Provider:Physician/Dept/Service : Dayana Chaudhry to Schedule in: 2 weeksComments: Incision checkGold Form - Other Clinicians:Other Clinician Instructions: Any woman can have complications after the of a baby including a blood clot, a heart problem, hypertensive disorder/eclampsia, depression, hemorrhage, or infection. Notify all providers of your delivery date up to one year after .* Call 911 or go to nearest emergency room right away if you have: PAIN or pressure in chest; OBSTRUCTED breathing or shortness of breath; SEIZURES; THOUGHTS of hurting yourself or your baby; heart palpitations/racing; change in alertness/confusion.Call your provider if you have: BLEEDING, soaking through a pad/hour, or blood clots the size of an egg or bigger; INCISION (episiotomy stitches or site) that is not healing (increased redness, pain, drainage/pus, or separation); RED or swollen leg/calf that is painful or warm to touch, especially in one leg more than the other; TEMPERATURE of 100.4 F or higher or chills; HEADACHE that does not get better with medicine, rest or hydration, or bad headache with vision changes like spots or flashing lights; increased swelling of face, hands or legs; severe cramps or upper right belly pain; red or swollen breast that is painful or warm to touch; an unusual, foul odor from your vaginal discharge; pain, burning, or difficulty during urination; severe constipation (more than 5 days); feelings of depression (such as depressed mood, loss of interest in enjoyable things, unable to care for yourself, trouble sleeping, lack of appetite, or feeling worthless). If you can t reach your provider or symptoms worsen, call 911 or go to nearest emergency room. *Information obtained from [employer]IZAN s: Save Your Life: Get Care for These POST- Warning SignsOn Behalf on the [facility] Staff, Congratulations on your infant. It was our pleasure to take care of you and your during your stay. We hope during this stay that we have exceeded all of your expectations. We will be calling you in a few days to check up on you and your . Please allow us to speak with you and please ask questions or let us know if you have any concerns. If you need any assistance after you go home please give us a call. Also, please join our [facility] Support Group which meets the wednesday of every month at 10 am in the OB unit. No need to register. If you have any questions please call us at [phone]. Again, Congratulations! Warmest Regards,[facility]'s Maternity Staff [facility] Summary Purpose Family History No Family History Records Found Grandmother Name Dates Details Family history of diabetes m ellitus(V18.0, Z83.3) Status:Active Grandmother Name Dates Details Family history of diabetes m ellitus(V18.0, Z83.3) Status:Active Grandparent Name Dates Details Family history of cerebrovas cular accident (CVA)(V17.1, Z82.3) Status:Active Grandmother Name Dates Details Family history of malignant neoplasm of ovary(V16.41, Z80.41) Status:Active Unknown Family Member Name Dates Details Family history of diabetes m ellitus: Maternal Grandmother, Paternal Grandmother(V18.0, Z83.3) Status:Active Family history of malignant neoplasm of ovary: Grandmother(V16.41, Z80.41) Status:Active Family history of cerebrovas cular accident (CVA): Grandparent(V17.1, Z82.3) Status:Active Unknown Family Member Name Dates Details Family history of diabetes m ellitus: Maternal Grandmother, Paternal Grandmother(V18.0, Z83.3) Status:Active Family history of malignant neoplasm of ovary: Grandmother(V16.41, Z80.41) Status:Active Family history of cerebrovas cular accident (CVA): Grandparent(V17.1, Z82.3) Status:Active Unknown Family Member Name Dates Details Family history of diabetes m ellitus: Maternal Grandmother, Paternal Grandmother(V18.0, Z83.3) Status:Active Family history of malignant neoplasm of ovary: Grandmother(V16.41, Z80.41) Status:Active Family history of cerebrovas cular accident (CVA): Grandparent(V17.1, Z82.3) Status:Active Unknown Family Member Name Dates Details Family history of diabetes m ellitus: Maternal Grandmother, Paternal Grandmother(V18.0, Z83.3) Status:Active Family history of malignant neoplasm of ovary: Grandmother(V16.41, Z80.41) Status:Active Family history of cerebrovas cular accident (CVA): Grandparent(V17.1, Z82.3) Status:Active Unknown Family Member Name Dates Details Family history of diabetes m ellitus: Maternal Grandmother, Paternal Grandmother(V18.0, Z83.3) Status:Active Family history of malignant neoplasm of ovary: Grandmother(V16.41, Z80.41) Status:Active Family history of cerebrovas cular accident (CVA): Grandparent(V17.1, Z82.3) Status:Active Unknown Family Member Name Dates Details Family history of diabetes m ellitus: Maternal Grandmother, Paternal Grandmother(V18.0, Z83.3) Status:Active Family history of malignant neoplasm of ovary: Grandmother(V16.41, Z80.41) Status:Active Family history of cerebrovas cular accident (CVA): Grandparent(V17.1, Z82.3) Status:Active Unknown Family Member Name Dates Details Family history of diabetes m ellitus: Maternal Grandmother, Paternal Grandmother(V18.0, Z83.3) Status:Active Family history of malignant neoplasm of ovary: Grandmother(V16.41, Z80.41) Status:Active Family history of cerebrovas cular accident (CVA): Grandparent(V17.1, Z82.3) Status:Active Unknown Family Member Name Dates Details Family history of diabetes m ellitus: Maternal Grandmother, Paternal Grandmother(V18.0, Z83.3) Status:Active Family history of malignant neoplasm of ovary: Grandmother(V16.41, Z80.41) Status:Active Family history of cerebrovas cular accident (CVA): Grandparent(V17.1, Z82.3) Status:Active Unknown Family Member Name Dates Details Family history of diabetes m ellitus: Maternal Grandmother, Paternal Grandmother(V18.0, Z83.3) Status:Active Family history of malignant neoplasm of ovary: Grandmother(V16.41, Z80.41) Status:Active Family history of cerebrovas cular accident (CVA): Grandparent(V17.1, Z82.3) Status:Active Unknown Family Member Name Dates Details Family history of diabetes m ellitus: Maternal Grandmother, Paternal Grandmother(V18.0, Z83.3) Status:Active Family history of malignant neoplasm of ovary: Grandmother(V16.41, Z80.41) Status:Active Family history of cerebrovas cular accident (CVA): Grandparent(V17.1, Z82.3) Status:Active Unknown Family Member Name Dates Details Family history of diabetes m ellitus: Maternal Grandmother, Paternal Grandmother(V18.0, Z83.3) Status:Active Family history of malignant neoplasm of ovary: Grandmother(V16.41, Z80.41) Status:Active Family history of cerebrovas cular accident (CVA): Grandparent(V17.1, Z82.3) Status:Active Unknown Family Member Name Dates Details Family history of diabetes m ellitus: Maternal Grandmother, Paternal Grandmother(V18.0, Z83.3) Status:Active Family history of malignant neoplasm of ovary: Grandmother(V16.41, Z80.41) Status:Active Family history of cerebrovas cular accident (CVA): Grandparent(V17.1, Z82.3) Status:Active Unknown Family Member Name Dates Details Family history of diabetes m ellitus: Maternal Grandmother, Paternal Grandmother(V18.0, Z83.3) Status:Active Family history of malignant neoplasm of ovary: Grandmother(V16.41, Z80.41) Status:Active Family history of cerebrovas cular accident (CVA): Grandparent(V17.1, Z82.3) Status:Active Unknown Family Member Name Dates Details Family history of diabetes m ellitus: Maternal Grandmother, Paternal Grandmother(V18.0, Z83.3) Status:Active Family history of malignant neoplasm of ovary: Grandmother(V16.41, Z80.41) Status:Active Family history of cerebrovas cular accident (CVA): Grandparent(V17.1, Z82.3) Status:Active Unknown Family Member Name Dates Details Family history of diabetes m ellitus: Maternal Grandmother, Paternal Grandmother(V18.0, Z83.3) Status:Active Family history of malignant neoplasm of ovary: Grandmother(V16.41, Z80.41) Status:Active Family history of cerebrovas cular accident (CVA): Grandparent(V17.1, Z82.3) Status:Active Unknown Family Member Name Dates Details Family history of diabetes m ellitus: Maternal Grandmother, Paternal Grandmother(V18.0, Z83.3) Status:Active Family history of malignant neoplasm of ovary: Grandmother(V16.41, Z80.41) Status:Active Family history of cerebrovas cular accident (CVA): Grandparent(V17.1, Z82.3) Status:Active Unknown Family Member Name Dates Details Family history of diabetes m ellitus: Maternal Grandmother, Paternal Grandmother(V18.0, Z83.3) Status:Active Family history of malignant neoplasm of ovary: Grandmother(V16.41, Z80.41) Status:Active Family history of cerebrovas cular accident (CVA): Grandparent(V17.1, Z82.3) Status:Active Advance Directives No Advanced Directives Records FoundNo Advanced Directives Records FoundNo Advanced Directives Records FoundNo Advanced Directives Records Found Chief Complaint PT HERE TODAY FOR PO VISIT. PT STATES SHE IS HAVING SOME ITCHING AND THE SWELLING IS GOING DOWN. PTFEELS THE INCISION IS HEALING WELL AND HAS NO CONCERNS. PT WANTS TO DISCUSS RESTRICTIONS.Patient is here for her 4 week post visit. Patient had a C/S delivery of a male infant on 02/04/21 at 39 weeks, infant weighted 7 # 10 oz. Patient is currently breast and bottle feeding. Patientwould like to discuss control options. Patient has not resumed sexual activity. Patient denies any post depression. Patient has no concerns at this time.Patient is here for her yearly exam and pap test. LMP: 08/13/2021. Patient does self breast exams and states she is having 2 periods a month. Additional Source Comments INFORMATION SOURCE (unrecogn ized section and content) DATE CREATED AUTHOR AUTHOR'S ORGANIZ ATION 06/06/2021 [facility] DATE CREATED AUTHOR AUTHOR'S ORGANIZ ATION 08/21/2021 [employer] DATE CREATED AUTHOR AUTHOR'S ORGANIZ ATION 02/26/2022 [facility] <item> Privacy Markings (unrecogniz ed section and content) Section Author: Kiah Qureshi PROHIBITION ON REDISCLOSURE OF CONFIDENTIAL INFORMATION This notice accompanies a disclosure of information concerning a client made to you with the consent of such client. FOR RECORDS PERTAINING TO PATIENTS WHO ARE OR HAVE BEEN ENROLLED IN A CHEMICAL DEPENDENCY/SUBSTANCEABUSE PROGRAM, SOME INFORMATION MAY BE OMITTED. This clinical summary was aggregated from multiple sources. Caution should be exercised in using it in the provision of clinical care. This summary normalizes information from multiple sources, and as a consequence, information in this document may materially change the coding, format and clinical context of patient data. In addition, data may be omitted in some cases. CLINICAL DECISIONS SHOULD BE BASED ON THE PRIMARY CLINICAL RECORDS. [facility]. provides no warranty or guarantee of the accuracy or completeness of information in this document.
== END | disposition home or self-care (01) ==
PROVIDERS: Referring Provider Registered Nurse; Visit Provider Registered Nurse
DX: O34.219 Maternal care for unspecified type scar from previous cesarean delivery (principal); E66.9 Obesity, unspecified; Z3A.00 Weeks of gestation of pregnancy not specified; O99.210 Obesity complicating pregnancy, unspecified trimester
CPT/HCPCS: 76816

== ENCOUNTER 2023-08-21 04:28 | Inpatient (IN) | payer SELFPAY ==
[2023-08-21] VITALS (12 sets, daily range): BP systolic 112–136; BP diastolic 62–80; PULSE 94–118; RESP 14; TEMP 36.5–36.9; O2SAT 95–99; BMI 36.3
--- OUTSIDE RECORDS SUMMARY | 2023-08-21 04:11 | XMS RPT_ITS | CCD ---
Author Name Unknown Address [address] [place] [address] Organization [facility] Care Team Providers Care Traffic Survey Technician Name Role Phone Reema Multani Unavailable Unavailable [...] height 162.56 cm Reema Duffyel Work Phone: [employer] Work Phone: 08-20-2021 13:58-0500 Body mass index (BMI) [Ratio] 32.62 kg/m2 Reema Duffyel Work Phone: [employer] Work Phone: 08-20-2021 13:58-0500 Body surface area Derived from formula 1.91 m2 Reema Multani Work Phone: [employer] Work Phone: 02-16-2022 13:58-0500 Body temperature 97.8 [degF] Reema Multani Work Phone: [place] [address] Work Phone: 08-20-2021 13:58-0500 Body weight 86.2 kg Reema Multani Work Phone: [place] [address] Work Phone: 08-20-2021 13:58-0500 Diastolic blood pressure 68 mm[Hg] Reema Multani Work Phone: [place] [address] Work Phone: 08-20-2021 13:58-0500 Systolic blood pressure 114 mm[Hg] Reema Multani Work Phone: [place] [address] [email or web address] Work Phone: 03-04-2021 13:37-0400 Body height 162.56 cm Reema Multani Work Phone: [place] [address] Work Phone: 03-04-2021 13:37-0400 Body mass index (BMI) [Ratio] 32.2 kg/m2 Reema Multani Work Phone: [place] [address] Work Phone: 03-04-2021 13:37-0400 Body surface area Derived from formula 1.9 m2 Reema Multani Work Phone: [place] [address] Work Phone: 03-04-2021 13:37-0400 Body temperature 98.2 [degF] Reema Multani Work Phone: [place] [address] Work Phone: 03-04-2021 13:37-0400 Body weight 85.1 kg Reema Multani Work Phone: [place] [address] Work Phone: 03-04-2021 13:37-0400 Diastolic blood pressure 66 mm[Hg] Reema Multani Work Phone: [place] [address] Work Phone: 03-04-2021 13:37-0400 Systolic blood pressure 110 mm[Hg] Reema Multani Work Phone: [place] [address] Work Phone: 02-18-2021 11:08-0400 Body height 162.56 cm Reema Multani Work Phone: [place] [address] Work Phone: 02-18-2021 11:08-0400 Body mass index (BMI) [Ratio] 31.96 kg/m2 Reema Multani Work Phone: [place] [address] Work Phone: 02-18-2021 11:08-0400 Body surface area Derived from formula 1.9 m2 Reema Multani Work Phone: [place] [address] Work Phone: 02-18-2021 11:08-0400 Body temperature 97.3 [degF] Reema Multani Work Phone: [place] [address] Work Phone: 02-18-2021 11:08-0400 Body weight 84.46 kg Reema Multani Work Phone: [place] [address] Work Phone: 02-18-2021 11:08-0400 Diastolic blood pressure 68 mm[Hg] Reema Duffyel Work Phone: [place] [address] Work Phone: 02-18-2021 11:08-0400 Systolic blood pressure 108 mm[Hg] Reema Multani Work Phone: [employer] [address] [email or web address] Work Phone: 02-07-2021 12:29-0400 Body temperature 98.24 [degF] Reema Nerissa Other Phone: [facility] 02-07-2021 12:29-0400 Diastolic blood pressure 82 mm[Hg] Reema Nerissa Other Phone: [facility] 02-07-2021 12:29-0400 Heart rate 93 /min Reema Nerissa Other Phone: [facility] 02-07-2021 12:29-0400 Respiratory rate 16 /min Reema Duffyel Other Phone: [facility] 02-07-2021 12:29-0400 SaO2% (BldA) [Mass fraction] 97 % Reema Multani Other Phone: [facility] 02-07-2021 12:29-0400 Systolic blood pressure 118 mm[Hg] Reema Nerissa Other Phone: [facility] 01-29-2021 08:39-0400 Body height 162.56 cm Reema Multani Work Phone: [place] [address] [email or web address] Work Phone: 01-29-2021 08:39-0400 Body mass index (BMI) [Ratio] 34.44 kg/m2 Reema Maryjo Nerissa Work Phone: [employer] [address] [email or web address] Work Phone: 01-29-2021 08:39-0400 Body surface area Derived from formula 1.96 m2 Reema Maryjo Nerissa Work Phone: [facility] Work Phone: 01-29-2021 08:39-0400 Body temperature 96.9 [degF] Reema Multani Work Phone: [place] [address] Work Phone: 01-29-2021 08:39-0400 Body weight 91 kg Reema Multani Work Phone: [place] [address] Work Phone: 01-29-2021 08:39-0400 Diastolic blood pressure 72 mm[Hg] Reema Multani Work Phone: [place] [address] Work Phone: 01-29-2021 08:39-0400 Systolic blood pressure 102 mm[Hg] Reema Multani Work Phone: [place] [address] Work Phone: 01-21-2021 08:51-0400 Body height 162.56 cm Reema Multani Work Phone: [place] [address] Work Phone: 01-21-2021 08:51-0400 Body mass index (BMI) [Ratio] 34.55 kg/m2 Reema Multani Work Phone: [place] [address] Work Phone: 01-21-2021 08:51-0400 Body surface area Derived from formula 1.96 m2 Reema Multani Work Phone: [place] [address] Work Phone: 01-21-2021 08:51-0400 Body temperature 96.8 [degF] Reema Multani Work Phone: [place] [address] Work Phone: 01-21-2021 08:51-0400 Body weight 91.3 kg Reema Multani Work Phone: [place] [address] Work Phone: 01-21-2021 08:51-0400 Diastolic blood pressure 70 mm[Hg] Reema Maryjo Nerissa Work Phone: [place] [address] Work Phone: 01-21-2021 08:51-0400 Systolic blood pressure 112 mm[Hg] Reema Maryjo Nerissa Work Phone: [place] [address] Work Phone: 01-14-2021 08:51-0400 Body height 162.56 cm Reema Maryjo Duffyel Work Phone: [place] [address] Work Phone: 01-14-2021 08:51-0400 Body mass index (BMI) [Ratio] 33.87 kg/m2 Reema Maryjo Nerissa Work Phone: [place] [address] Work Phone: 01-14-2021 08:51-0400 Body surface area Derived from formula 1.94 m2 Reema Duffyel Work Phone: [place] [address] Work Phone: 01-14-2021 08:51-0400 Body temperature 96.8 [degF] Reema Maryjo Nerissa Work Phone: [place] [address] Work Phone: 01-14-2021 08:51-0400 Body weight 89.5 kg Reema Maryjo Nerissa Work Phone: [place] [address] Work Phone: 01-14-2021 08:51-0400 Diastolic blood pressure 70 mm[Hg] Reema Maryjo Nerissa Work Phone: [place] [address] Work Phone: 01-14-2021 08:51-0400 Systolic blood pressure 110 mm[Hg] Reema M Nerissa Work Phone: [place] [address] Work Phone: 12-31-2020 08:34-0400 Body height 162.56 cm Reema Multani Work Phone: [place] [address] Work Phone: 12-31-2020 08:34-0400 Body mass index (BMI) [Ratio] 33.6 kg/m2 Reema Multani Work Phone: [place] [address] Work Phone: 12-31-2020 08:34-0400 Body surface area Derived from formula 1.94 m2 Reema Multani Work Phone: [place] [address] Work Phone: 12-31-2020 08:34-0400 Body temperature 97.5 [degF] Reema Multani Work Phone: [place] [address] Work Phone: 12-31-2020 08:34-0400 Body weight 88.8 kg Reema Multani Work Phone: [place] [address] Work Phone: 12-31-2020 08:34-0400 Diastolic blood pressure 68 mm[Hg] Reema Multani Work Phone: [place] [address] Work Phone: 12-31-2020 08:34-0400 Systolic blood pressure 112 mm[Hg] Reema Multani Work Phone: [place] [address] Work Phone: 12-17-2020 08:43-0400 Body height 162.56 cm Reema Multani Work Phone: [place] [address] Work Phone: 12-17-2020 08:43-0400 Body mass index (BMI) [Ratio] 33.38 kg/m2 Reema Multani Work Phone: [place] [address] Work Phone: 12-17-2020 08:43-0400 Body surface area Derived from formula 1.93 m2 Reema Multani Work Phone: [place] [address] [employer] Work Phone: 12-17-2020 08:43-0400 Body temperature 97.8 [degF] Reema Multani Work Phone: [place] [address] [employer] Work Phone: 12-17-2020 08:43-0400 Body weight 88.2 kg Reema Multani Work Phone: [place] [address] [employer] Work Phone: 12-17-2020 08:43-0400 Diastolic blood pressure 72 mm[Hg] Reema Multani Work Phone: [place] [address] [employer] Work Phone: 12-17-2020 08:43-0400 Systolic blood pressure 110 mm[Hg] Reema Multani Work Phone: [place] [address] [employer] Work Phone: 11-19-2020 08:38-0400 Body height 162.56 cm Reema Multani Work Phone: [place] [address] [employer] Work Phone: 11-19-2020 08:38-0400 Body mass index (BMI) [Ratio] 32.58 kg/m2 Reema Multani Work Phone: [place] [address] [employer] Work Phone: 11-19-2020 08:38-0400 Body surface area Derived from formula 1.91 m2 Reema Multani Work Phone: [facility] [address] Work Phone: 11-19-2020 08:38-0400 Body temperature 97.5 [degF] Reema Multani Work Phone: [facility] [address] Work Phone: 11-19-2020 08:38-0400 Body weight 86.1 kg Reema Multani Work Phone: [facility] [address] Work Phone: 11-19-2020 08:38-0400 Diastolic blood pressure 66 mm[Hg] Reema Multani [facility] [address] Work Phone: 11-19-2020 08:38-0400 Systolic blood pressure 112 mm[Hg] Reema Multani Work Phone[facility] [address] Work Phone: 08-05-2020 10:59-0500 BMI (Body Mass Index) 29.93 kg/m2 [facility] [address] Work Phone: 08-05-2020 10:59-0500 Body Temperature 97.1 [degF] Reema Multani [facility] [address] Work Phone: 08-05-2020 10:59-0500 Body weight 79.09 kg Reema Multani [facility] [address] Work Phone: 08-05-2020 10:59-0500 BP Diastolic 72 mm[Hg] Reema Multani [facility] [address] Work Phone: 08-05-2020 10:59-0500 BP Systolic 118 mm[Hg] Reema Multani [facility] [address] Work Phone: 08-05-2020 10:590500 BSA (Body Surface Area) 1.85 m2 Reema Multani [employer] [facility] [employer] Work Phone: 08-05-2020 10:590500 Height 162.56 cm Reema Multani [employer] [facility] [address] [employer] Work Phone: Encounters Encounter Date Encounter Type Care Provider Facility Start: 01-28-2022 Rx Renewal Reema benitez Work Phone: [employer] [facility] [employer] Work Phone: Start: 08-27-2021 Chart Update Reema benitez Work Phone: [employer] [facility] [employer] Work Phone: Start: 08-20-2021 Periodic preventive med est patient 18-39 yrs Reema Multani Work Phone: [employer] [facility] Work Phone: Start: 03-04-2021 Patient encounter procedure Reema Multani Work Phone: [facility] Work Phone: Start: 02-18-2021 Postop follow up vis it related to original px Reema Multani Work Phone: [employer] [facility] Work Phone: Start: 02-04-2021 End: 02-07-2021 Evaluation and management of inpatient Rj Aj [facility] Start: 02-03-2021 Chart Update Reema Maryjo benitez Work Phone: [facility] [employer] Work Phone: Start: 01-29-2021 Office outpatient vi sit 15 minutes Reema Duffyel Work Phone: [employer] Work Phone: Start: 01-21-2021 Office outpatient vi sit 15 minutes Reema Sibley Nerissa Work Phone: [facility] [address] [address] Work Phone: Start: 01-16-2021 Chart Update Reema Sibley Nag el Work Phone: [facility] [address] [address] Work Phone: Start: 01-15-2021 Chart Update Reema Maryjo Nag el Work Phone: [facility] [address] [address] Work Phone: Start: 01-14-2021 EPVOB, Provider: Rj Aj, Status: Pen, Time: 8:45 AM Reema Duffyel Work Phone: [place] [address] [address] Work Phone: Start: 01-14-2021 Office outpatient vi sit 15 minutes Reema Duffyel Work Phone: [place] [address] [address] Work Phone: Start: 01-13-2021 AUDIT Reema Maryjo Nag el Work Phone: [place] [address] [address] Work Phone: Start: 12-17-2020 Office outpatient vi sit 15 minutes Reema Maryjo Nerissa Work Phone: [facility] [address] [address] Work Phone: Start: 12-03-2020 Office outpatient vi sit 15 minutes Reema Maryjo Nerissa Work Phone: [facility] [address] [address] Work Phone: Start: 11-27-2020 Chart Update Reema Maryjo Nag el Work Phone: [facility] [address] [address] Work Phone: Start: 11-27-2020 Chart Update Reema Maryjo Nag el Work Phone: [place] [address] [address] Work Phone: Start: 08-05-2020 Patient encounter procedure Reema Multani [employer] Phone: Start: 07-10-2020 Patient encounter procedure [facility] Phone: Cancer cervix - screening done Reema Multani Work Phone: [employer] Phone: Procedures Date Procedure Procedure Detail Performing Clinician Start: 02-04-2021 Antibody screen Plan of Treatment Date Care Activity Detail Author Start: 08-21-2022 Patient encounter procedure ANNUAL, Provider: Rj Aj, Status: Pen, Time: 2:00 PM [employer] Work Phone: Start: 08-20-2021 Patient encounter procedure ANNUAL, Provider: Rj Aj, Status: Pen, Time: 2:00 PM [employer] Work Phone: Start: 03-04-2021 Patient encounter procedure [facility] Start: 03-04-2021 PPV, Provider: Rj Aj, Status: Pen, Time: 1:30 PM PPV, Provider: Rj Aj, Status: Pen, Time: 1:30 [facility]: Start: 02-05-2021 End: 02-06-2022 HYDROmorphone Injectable 0.2 mg IntraVenous Push Every 4 Hours PRN ; (DILAUDID)DOSE = 0.4 mg IntraVenous Push Every 3 Hours, PRN breakthrough painClinician Notes: Conditional Order: START AFTER DISTRICT AGENT is discontinued. Start: 05-Feb-2021 End: 05-Feb-2022 Ordered: 04-Feb-2021 Rj Aj R Intent Comments: Conditional Order: START AFTER DISTRICT AGENT is discontinued. [facility] Payers Date Payer Category Payer Unknown Social History Date Type Detail Facility Assertion Tobacco smoking consumption unknown (finding) [employer] Phone: Sexually active Sexually active [place] [address] [email or web address] Work Phone: Tobacco smoking consumption unknown [facility] Functional Status Date Assessment Result Facility Functional observable [facility] NEGATED: Highlighted row Functional performance Functional status health issues are not documented Disease [place] [address] [email or web address] Work Phone: Mental Status Date Assessment Result Facility 02-07-2021 Cognitive functi ons :11 [facility] NEGATED: Highlighted row Cognitive function [Interpretation] Cognitive status health issues are not documented Disease [place] [address] [email or web address] Work Phone: Clinical Note 08-20-2021 Note Date & Type Note Facility 08-20-2021 Note 8 Date of Procedure: 08/20/2021 Pathologist: [facility], Cytology Date Reported: 08/27/2021 Date Received: 08/20/2021 [...] test interpretation above. QC review performed at [facility], [address] [place], [place] [id number] This specimen has been analyzed by the [employer] D[employer] Imaging System ([employer] an automated imaging and review system, which assists the laboratory in evaluating cells on ThinPrep Pap tests. Following automated imaging, selected beltran from every slide were reviewed by a pumper gager apprentice and/or pathologist. Electronically Signed Out By [facility], Cytology//[facility] By the signature on this report, [...] Source of Specimen A: THINPREP PAP CERVICAL [facility] Department of Pathology [id number] [place] [address] Discharge summary note 02-07-2021 Note Date & [...] at Discharge: .Home Vital Signs: T PRBPSpO2 [id number]% Date/Time02/07 4:148/6 4:148/6 4:148/6 4:148/6 4:14 Range(36.6C [...] Pending: None Radiology Results - Pending: None [place] Suicide Risk: negative Discharge Instructions: Activity: Return to normal activity as tolerated Nutrition/Diet: Regular Follow Up Appointments: Follow-Up - OB Provider: Physician/Dept/Service: Rj Aj MD Call to Schedule in: 2 weeks Discharge Medications: [id number] Tylenol and Motrin Electronic Signatures: Rj Aj) (Signed 07-Feb-2021 07:14) Authored: Send Summary, Summary Content, Ongoing Care, Note Completion Last Updated: 07-Feb-2021 07:14 by Rj Aj) [facility] Clinical Note 02-05-2021 Note Date & Type [...] pre-op dx Delivery Provider: Rj Aj MD [employer] Developer: Tang Rios DO Dictation: not applicable - [...] extended laterally with bandage scissors, with the lasting room machine operator's hand between the scissors and the parts. There was noted clear amniotic fluid. The head was delivered easily, followed by the remainder of the infant. Cord was doubly clamped and cut, the [...] was taken to PACU in good condition. Medical Lab Technician: Dr. Rios as needed for appropriate retraction, visualization and delivery of the infant during the performance of the surgery. Hemorrhage [...] Last Updated: 04-Feb-2021 22:44 by Rj Aj) [facility] Clinical Note 02-04-2021 Note Date & Type Note Facility 02-04-2021 Note HPI/OB History: Care Provider: Rj Aj MD [facility] Descriptive Info: HPI Patient is [...] 05-Aug-2020 Syphilis Results: negative Antepartum/: Antepartum/PP: Final [id number] Current EGA:39 Patient is > or = [...] been reviewed. Objective: Objective Information: T PRBPSpO2 [id number]% Date/Time8 6:228/3 6:218/3 6:22 Range (95 - [...] Patient Profile - OB v3 04-Feb-2021 06:41 [facility] Evaluation note <item> Note Date & Type Note Facility Evaluation note Cardiovascular: S1 S 2 RRR, no murmursExtremities: no calf tenderness, reflexes 2+Constitutional: alert, orientedRespiratory/Thorax: normal respiratory effort, lungs clear, no wheezes or rhonchi [facility] History of Present illness Narrative Note Date & Type Note Facility History of Present illness Narrative 30-year-old presents for 2-week postop status post primary for arrest. Patient is she is doing well. Pain controlled. Bleeding improving. Bowel and bladder function returned to normal. doing well. Patient is no acute concerns [employer] Work Phone: History of Present illness Narrative Note Date & Type Note Facility History of Present illness Narrative Patient presents for checkup. She is breast and bottlefeeding. She is a heterozygote for factor V Leiden. [employer] Work Phone: History of Present illness Narrative [...] being on the progestin only control pill. [employer] Work Phone: Hospital Discharge instructions <item><item><item><item> Note [...] These POST- Warning SignsOn Behalf on the [facility] Maternity Staff, Congratulations on your . It was our pleasure to take care of you and your infant during your stay. We hope during this stay that we have exceeded all of your expectations. We will be calling you in a few days to check up on you and your infant. Please allow us to speak with you and please ask questions or let us know if you have any concerns. If you need any assistance after you go home please give us a call. Also, please join our [facility] Support Group which meets the wednesday of every month at 10 am in the OB unit. No need to register. If you have any questions please call us at [phone]. Again, Congratulations! Warmest Regards,[facility]'s Maternity Staff [facility] Summary Purpose Family History No Family [...] male infant on 02/04/21 at 39 weeks, weighted 7 # 10 oz. Patient is [...] DATE CREATED AUTHOR AUTHOR'S ORGANIZ ATION 06/06/2021 [facility] DATE CREATED AUTHOR AUTHOR'S ORGANIZ ATION 08/21/2021 [employer] DATE CREATED AUTHOR AUTHOR'S ORGANIZ ATION 02/26/2022 [facility] <item> Privacy Markings (unrecogniz ed section and [...] BE BASED ON THE PRIMARY CLINICAL RECORDS. [employer] [facility]. provides no warranty or guarantee of the accuracy or completeness of information in this document.
--- OUTSIDE RECORDS SUMMARY | 2023-08-21 04:36 | XMS RPT_ITS | CCD ---
Author Name Unknown Address [address] [facility] [address] [place] [address] Organization [facility] Care Team Providers Care Clinical Laboratory Director Name Role Phone Reema Multani Unavailable Unavailable [...] height 162.56 cm Reema Duffyel Work Phone: [employer] Work Phone: 08-20-2021 13:58-0500 Body mass index (BMI) [Ratio] 32.62 kg/m2 Reema Duffyel Work Phone: [employer] Work Phone: 08-20-2021 13:58-0500 Body surface area Derived from formula 1.91 m2 Reema Multani Work Phone: [employer] Work Phone: 02-16-2022 13:58-0500 Body temperature 97.8 [degF] Reema Multani Work Phone: [place] [address] [address] Work Phone: 08-20-2021 13:58-0500 Body weight 86.2 kg Reema Multani Work Phone: [place] [address] [address] Work Phone: 08-20-2021 13:58-0500 Diastolic blood pressure 68 mm[Hg] Reema Multani Work Phone: [place] [address] [address] Work Phone: 08-20-2021 13:58-0500 Systolic blood pressure 114 mm[Hg] Reema Multani Work Phone: [place] [address] [employer] Work Phone: 03-04-2021 13:37-0400 Body height 162.56 cm Reema Multani Work Phone: [place] [address] [address] Work Phone: 03-04-2021 13:37-0400 Body mass index (BMI) [Ratio] 32.2 kg/m2 Reema Multani Work Phone: [place] [address] [address] Work Phone: 03-04-2021 13:37-0400 Body surface area Derived from formula 1.9 m2 Reema Multani Work Phone: [place] [address] [address] Work Phone: 03-04-2021 13:37-0400 Body temperature 98.2 [degF] Reema Multani Work Phone: [place] [address] [address] Work Phone: 03-04-2021 13:37-0400 Body weight 85.1 kg Reema Multani Work Phone: [place] [address] [address] Work Phone: 03-04-2021 13:37-0400 Diastolic blood pressure 66 mm[Hg] Reema Multani Work Phone: [place] [address] [address] Work Phone: 03-04-2021 13:37-0400 Systolic blood pressure 110 mm[Hg] Reema Multani Work Phone: [place] [address] [address] Work Phone: 02-18-2021 11:08-0400 Body height 162.56 cm Reema Multani Work Phone: [place] [address] [address] Work Phone: 02-18-2021 11:08-0400 Body mass index (BMI) [Ratio] 31.96 kg/m2 Reema Multani Work Phone: [place] [address] [address] Work Phone: 02-18-2021 11:08-0400 Body surface area Derived from formula 1.9 m2 Reema Multani Work Phone: [place] [address] [address] Work Phone: 02-18-2021 11:08-0400 Body temperature 97.3 [degF] Reema Multani Work Phone: [place] [address] [address] Work Phone: 02-18-2021 11:08-0400 Body weight 84.46 kg Reema Multani Work Phone: [place] [address] [address] Work Phone: 02-18-2021 11:08-0400 Diastolic blood pressure 68 mm[Hg] Reema Duffyel Work Phone: [place] [address] [address] Work Phone: 02-18-2021 11:08-0400 Systolic blood pressure 108 mm[Hg] Reema Multani Work Phone: [facility] [place] [address] [employer] Work Phone: 02-07-2021 12:29-0400 Body temperature 98.24 [degF] Reema Nerissa Other Phone: [facility] 02-07-2021 12:29-0400 Diastolic blood pressure 82 mm[Hg] Reema Nerissa Other Phone: [facility] 02-07-2021 12:29-0400 Heart rate 93 /min Reema Nerissa Other Phone: [facility] 02-07-2021 12:29-0400 Respiratory rate 16 /min Reema Duffyel Other Phone: [facility] 02-07-2021 12:29-0400 SaO2% (BldA) [Mass fraction] 97 % Reema Multani Other Phone: [facility] 02-07-2021 12:29-0400 Systolic blood pressure 118 mm[Hg] Reema Nerissa Other Phone: [facility] 01-29-2021 08:39-0400 Body height 162.56 cm Reema Multani Work Phone: [place] [address] [employer] Work Phone: 01-29-2021 08:39-0400 Body mass index (BMI) [Ratio] 34.44 kg/m2 Reema Maryjo Nerissa Work Phone: [facility] [address] [employer] Work Phone: 01-29-2021 08:39-0400 Body surface area Derived from formula 1.96 m2 Reema Maryjo Nerissa Work Phone: [facility] [employer] Work Phone: 01-29-2021 08:39-0400 Body temperature 96.9 [degF] Reema Multani Work Phone: [place] [address] [address] Work Phone: 01-29-2021 08:39-0400 Body weight 91 kg Reema Multani Work Phone: [place] [address] [address] Work Phone: 01-29-2021 08:39-0400 Diastolic blood pressure 72 mm[Hg] Reema Multani Work Phone: [place] [address] [address] Work Phone: 01-29-2021 08:39-0400 Systolic blood pressure 102 mm[Hg] Reema Multani Work Phone: [place] [address] [address] Work Phone: 01-21-2021 08:51-0400 Body height 162.56 cm Reema Multani Work Phone: [place] [address] [address] Work Phone: 01-21-2021 08:51-0400 Body mass index (BMI) [Ratio] 34.55 kg/m2 Reema Multani Work Phone: [place] [address] [address] Work Phone: 01-21-2021 08:51-0400 Body surface area Derived from formula 1.96 m2 Reema Multani Work Phone: [place] [address] [address] Work Phone: 01-21-2021 08:51-0400 Body temperature 96.8 [degF] Reema Multani Work Phone: [place] [address] [address] Work Phone: 01-21-2021 08:51-0400 Body weight 91.3 kg Reema Multani Work Phone: [place] [address] [address] Work Phone: 01-21-2021 08:51-0400 Diastolic blood pressure 70 mm[Hg] Reema Maryjo Nerissa Work Phone: [place] [address] [address] Work Phone: 01-21-2021 08:51-0400 Systolic blood pressure 112 mm[Hg] Reema Maryjo Nerissa Work Phone: [place] [address] [address] Work Phone: 01-14-2021 08:51-0400 Body height 162.56 cm Reema Maryjo Duffyel Work Phone: [place] [address] [address] Work Phone: 01-14-2021 08:51-0400 Body mass index (BMI) [Ratio] 33.87 kg/m2 Reema Maryjo Nerissa Work Phone: [place] [address] [address] Work Phone: 01-14-2021 08:51-0400 Body surface area Derived from formula 1.94 m2 Reema Duffyel Work Phone: [place] [address] [address] Work Phone: 01-14-2021 08:51-0400 Body temperature 96.8 [degF] Reema Maryjo Nerissa Work Phone: [place] [address] [address] Work Phone: 01-14-2021 08:51-0400 Body weight 89.5 kg Reema Maryjo Nerissa Work Phone: [place] [address] [address] Work Phone: 01-14-2021 08:51-0400 Diastolic blood pressure 70 mm[Hg] Reema Maryjo Nerissa Work Phone: [place] [address] [address] Work Phone: 01-14-2021 08:51-0400 Systolic blood pressure 110 mm[Hg] Reema M Nerissa Work Phone: [place] [address] [address] Work Phone: 12-31-2020 08:34-0400 Body height 162.56 cm Reema Multani Work Phone: [place] [address] [address] Work Phone: 12-31-2020 08:34-0400 Body mass index (BMI) [Ratio] 33.6 kg/m2 Reema Multani Work Phone: [place] [address] [address] Work Phone: 12-31-2020 08:34-0400 Body surface area Derived from formula 1.94 m2 Reema Multani Work Phone: [place] [address] [address] Work Phone: 12-31-2020 08:34-0400 Body temperature 97.5 [degF] Reema Multani Work Phone: [place] [address] [address] Work Phone: 12-31-2020 08:34-0400 Body weight 88.8 kg Reema Multani Work Phone: [place] [address] [address] Work Phone: 12-31-2020 08:34-0400 Diastolic blood pressure 68 mm[Hg] Reema Multani Work Phone: [place] [address] [address] Work Phone: 12-31-2020 08:34-0400 Systolic blood pressure 112 mm[Hg] Reema Multani Work Phone: [place] [address] [address] Work Phone: 12-17-2020 08:43-0400 Body height 162.56 cm Reema Multani Work Phone: [place] [address] [address] Work Phone: 12-17-2020 08:43-0400 Body mass index (BMI) [Ratio] 33.38 kg/m2 Reema Multani Work Phone: [place] [address] [address] Work Phone: 12-17-2020 08:43-0400 Body surface area Derived from formula 1.93 m2 Reema Multani Work Phone: [place] [address] [employer] Work Phone: 12-17-2020 08:43-0400 Body temperature 97.8 [degF] Reema Multani Work Phone: [place] [address] [employer] Work Phone: 12-17-2020 08:43-0400 Body weight 88.2 kg Reema Multani Work Phone: [place] [address] [employer] Work Phone: 12-17-2020 08:43-0400 Diastolic blood pressure 72 mm[Hg] Reema Multani Work Phone: [place] [address] [employer] Work Phone: 12-17-2020 08:43-0400 Systolic blood pressure 110 mm[Hg] Reema Multani Work Phone: [place] [address] [employer] Work Phone: 11-19-2020 08:38-0400 Body height 162.56 cm Reema Multani Work Phone: [place] [address] [employer] Work Phone: 11-19-2020 08:38-0400 Body mass index (BMI) [Ratio] 32.58 kg/m2 Reema Multani Work Phone: [place] [address] [employer] Work Phone: 11-19-2020 08:38-0400 Body surface area Derived from formula 1.91 m2 Reema Multani Work Phone: [facility] [address] Work Phone: 11-19-2020 08:38-0400 Body temperature 97.5 [degF] Reema Multani Work Phone: [facility] [address] Work Phone: 11-19-2020 08:38-0400 Body weight 86.1 kg Reema Multani Work Phone: [facility] [address] Work Phone: 11-19-2020 08:38-0400 Diastolic blood pressure 66 mm[Hg] [facility] Multani [facility] [address] Work Phone: 11-19-2020 08:38-0400 Systolic blood pressure 112 mm[Hg] [facility] Multani [facility] [address] Work Phone: 08-05-2020 10:59-0500 BMI (Body Mass Index) 29.93 kg/m2 [facility] [address] Work Phone: 08-05-2020 10:59-0500 Body Temperature 97.1 [degF] Reema Multani [facility] [address] Work Phone: 08-05-2020 10:59-0500 Body weight 79.09 kg Reema Multani [facility] [address] Work Phone: 08-05-2020 10:59-0500 BP Diastolic 72 mm[Hg] Reema Multani [facility] [address] Work Phone: 08-05-2020 10:59-0500 BP Systolic 118 mm[Hg] Reema Multani [facility] [address] Work Phone: 08-05-2020 10:590500 BSA (Body Surface Area) 1.85 m2 Reema Multani [facility] [employer] Work Phone: 08-05-2020 10:590500 Height 162.56 cm Reema Multani [facility] [address] [employer] Work Phone: Encounters Encounter Date Encounter Type Care Provider Facility Start: 01-28-2022 Rx Renewal Reema benitez Work Phone: [facility] [employer] Work Phone: Start: 08-27-2021 Chart Update Reema benitez Work Phone: [facility] [employer] Work Phone: Start: 08-20-2021 Periodic preventive med est patient 18-39 yrs Reema Multani Work Phone: [employer] Work Phone: Start: 03-04-2021 Patient encounter procedure Reema Multani Work Phone: [employer] Work Phone: Start: 02-18-2021 Postop follow up vis it related to original px Reema Multani Work Phone: [employer] Work Phone: Start: 02-04-2021 End: 02-07-2021 Evaluation and management of inpatient Rj Aj [facility] Start: 02-03-2021 Chart Update Reema Maryjo benitez Work Phone: [employer] Work Phone: Start: 01-29-2021 Office outpatient vi sit 15 minutes Reema Duffyel Work Phone: [employer] Work Phone: Start: 01-21-2021 Office outpatient vi sit 15 minutes Reema Sibley Nerissa Work Phone: [facility] [address] [address] Work Phone: Start: 01-16-2021 Chart Update Reema Sibley Nag el Work Phone: [facility] [address] [address] Work Phone: Start: 01-15-2021 Chart Update Reema Maryjo Nag el Work Phone: [facility] [address] [address] Work Phone: Start: 01-14-2021 EPVOB, Provider: Rj Aj, Status: Pen, Time: 8:45 AM Reema Duffyel Work Phone: [place] [address] [address] Work Phone: Start: 01-14-2021 Office outpatient vi sit 15 minutes Reema Duffyel Work Phone: [place] [address] [address] Work Phone: Start: 01-13-2021 AUDIT Reema Maryjo Nag el Work Phone: [place] [address] [address] Work Phone: Start: 12-17-2020 Office outpatient vi sit 15 minutes Reema Maryjo Nerissa Work Phone: [facility] [address] [address] Work Phone: Start: 12-03-2020 Office outpatient vi sit 15 minutes Reema Maryjo Nerissa Work Phone: [facility] [address] [address] Work Phone: Start: 11-27-2020 Chart Update Reema Maryjo Nag el Work Phone: [facility] [address] [address] Work Phone: Start: 11-27-2020 Chart Update Reema Maryjo Nag el Work Phone: [place] [address] [address] Work Phone: Start: 08-05-2020 Patient encounter procedure Reema Multani [employer] Phone: Start: 07-10-2020 Patient encounter procedure [facility] Multani [facility] Phone: Cancer cervix - screening done Reema Multani Work Phone: [employer] Phone: Procedures Date Procedure Procedure Detail Performing Clinician Start: 02-04-2021 Antibody screen Plan of Treatment Date Care Activity Detail Author Start: 08-21-2022 Patient encounter procedure ANNUAL, Provider: Rj Aj, Status: Pen, Time: 2:00 PM [employer] Work Phone: Start: 08-20-2021 Patient encounter procedure ANNUAL, Provider: Rj Aj, Status: Pen, Time: 2:00 PM [employer] Work Phone: Start: 03-04-2021 Patient encounter procedure [facility] Start: 03-04-2021 PPV, Provider: Rj Aj, Status: Pen, Time: 1:30 PM PPV, Provider: Rj Aj, Status: Pen, Time: [facility]: Start: 02-05-2021 End: 02-06-2022 HYDROmorphone Injectable 0.2 mg IntraVenous Push Every 4 Hours PRN ; (DILAUDID)DOSE = 0.4 mg IntraVenous Push Every 3 Hours, PRN breakthrough painClinician Notes: Conditional Order: START AFTER DIGITAL CONTENT SPECIALIST is discontinued. Start: 05-Feb-2021 End: 05-Feb-2022 Ordered: 04-Feb-2021 Rj Aj R Intent Comments: Conditional Order: START AFTER DIGITAL CONTENT SPECIALIST is discontinued. [facility] Payers Date Payer Category Payer Unknown Social History Date Type Detail Facility Assertion Tobacco smoking consumption unknown (finding) [employer] Phone: Sexually active Sexually active [place] [id number] [employer] Work Phone: Tobacco smoking consumption unknown [facility] Functional Status Date Assessment Result Facility Functional observable [facility] NEGATED: Highlighted row Functional performance Functional status health issues are not documented Disease [place] [address] [employer] Work Phone: Mental Status Date Assessment Result Facility 02-07-2021 Cognitive functi ons :11 [facility] NEGATED: Highlighted row Cognitive function [Interpretation] Cognitive status health issues are not documented Disease [place] [address] [employer] Work Phone: Clinical Note 08-20-2021 Note Date & Type Note Facility 08-20-2021 Note 8 Date of Procedure: 08/20/2021 Pathologist: [facility], Cytology Date Reported: 08/27/2021 Date Received: 08/20/2021 [...] test interpretation above. QC review performed at [facility], [address] [place], [place] [id number] This specimen has been analyzed by the SkyeraPrep Imaging System ([employer] an automated imaging and review system, which assists the laboratory in evaluating cells on ThinPrep Pap tests. Following automated imaging, selected beltran from every slide were reviewed by a aircraft powerplant repairer and/or pathologist. Electronically Signed Out By [facility], Cytology//[facility] By the signature on this report, the [...] Source of Specimen A: THINPREP PAP CERVICAL [facility] Department of Pathology [id number] [place] [address] Discharge summary note 02-07-2021 Note Date & [...] at Discharge: .Home Vital Signs: T PRBPSpO2 [id number]% Date/Time02/07 4:148/6 4:148/6 4:148/6 4:148/6 4:14 Range(36.6C [...] Pending: None Radiology Results - Pending: None [place] Suicide Risk: negative Discharge Instructions: Activity: Return to normal activity as tolerated Nutrition/Diet: Regular Follow Up Appointments: Follow-Up - OB Provider: Physician/Dept/Service: Rj Aj MD Call to Schedule in: 2 weeks Discharge Medications: [id number] Tylenol and Motrin Electronic Signatures: Rj Aj) (Signed 07-Feb-2021 07:14) Authored: Send Summary, Summary Content, Ongoing Care, Note Completion Last Updated: 07-Feb-2021 07:14 by Rj Aj) [facility] Clinical Note 02-05-2021 Note Date & [...] pre-op dx Delivery Provider: Rj Aj MD Siderographist: Tang Rios DO Dictation: not applicable - [...] extended laterally with bandage scissors, with the jewelry drilling machine operator's hand between the scissors and [...] was taken to PACU in good condition. Machinist Supervisor: Dr. Rios as needed for appropriate retraction, [...] Last Updated: 04-Feb-2021 22:44 by Rj Aj) [facility] Clinical Note 02-04-2021 Note Date & Type Note Facility 02-04-2021 Note HPI/OB History: Care Provider: Rj Aj MD [facility] Descriptive Info: HPI Patient is a 30 [...] 05-Aug-2020 Syphilis Results: negative Antepartum/: Antepartum/PP: Final [id number] Current EGA:39 Patient is > or = [...] been reviewed. Objective: Objective Information: T PRBPSpO2 [id number]% Date/Time8 6:228/3 6:218/3 6:22 Range (95 - [...] Patient Profile - OB v3 04-Feb-2021 06:41 [facility] Evaluation note <item> Note Date & Type Note Facility Evaluation note Cardiovascular: S1 S 2 RRR, no murmursExtremities: no calf tenderness, reflexes 2+Constitutional: alert, orientedRespiratory/Thorax: normal respiratory effort, lungs clear, no wheezes or rhonchi [facility] History of Present illness Narrative Note Date & Type Note Facility History of Present illness Narrative 30-year-old presents for 2-week postop status post primary for arrest. Patient is she is doing well. Pain controlled. Bleeding improving. Bowel and bladder function returned to normal. doing well. Patient is no acute concerns [employer] Work Phone: History of Present illness Narrative Note Date & Type Note Facility History of Present illness Narrative Patient presents for checkup. She is breast and bottlefeeding. She is a heterozygote for factor V Leiden. [employer] Work Phone: History of Present illness Narrative [...] being on the progestin only control pill. [employer] Work Phone: Hospital Discharge instructions <item><item><item><item> Note [...] These POST- Warning SignsOn Behalf on the [facility] Maternity Staff, Congratulations on your . It [...] us a call. Also, please join our [facility] Support Group which meets the wednesday of every month at 10 am in the OB unit. No need to register. If you have any questions please call us at [phone]. Again, Congratulations! Warmest Regards,[facility]'s Maternity Staff [facility] Summary Purpose Family History No Family History [...] DATE CREATED AUTHOR AUTHOR'S ORGANIZ ATION 06/06/2021 [facility] DATE CREATED AUTHOR AUTHOR'S ORGANIZ ATION 08/21/2021 [employer] DATE CREATED AUTHOR AUTHOR'S ORGANIZ ATION 02/26/2022 [facility] <item> Privacy Markings (unrecogniz ed section [...] BE BASED ON THE PRIMARY CLINICAL RECORDS. [employer] [facility]. provides no warranty or guarantee of the accuracy or completeness of information in this document.
[2023-08-21] MEDS: Lactated Ringers 1,000 ML 50 ML IV (04:45)
[2023-08-21] MEDS: Penicillin G Pot 5,000,000 UNITS in 0.9% Normal Saline (100mL MB+) 100 ML 150 UNITS IV (04:45)
[2023-08-21 04:47] LABS: Absolute Lymphocyte Count 3.32 X10^3/uL (0.83-4.51); Absolute Neutrophil Count 10.3 X10^3/uL (2.0-7.7); Basophil# 0.08 X10^3/uL; Basophil% 0.5 % (0-1); Eosinophil# 0.19 X10^3/uL; Eosinophils% 1.3 % (0-5); Hematocrit 34.4 % (37-47); Lymphocyte # 3.32 X10^3/ul (0.83-4.51); Lymphocyte % 22.1 % (19-41); Mean Corpuscular Volume 81.3 fL (81-99); Mean Platelet Vol. 10.4 fl (6.2-12.0); Monocyte% 6.7 % (0-10); NRBC Flagged by Analyzer 0 % (0-5); Neutrophil # 10.26 X10^3/uL (2.7-7.7); Neutrophil % 68.5 % (47-70); Platelet Count 264 K/mm3 (150-450); RBC Distribution Width CV 13.6 % (11.6-14.6); RBC Distribution Width SD 40.1 fl (35.1-43.9); Red Blood Count 4.23 M/mm3 (4.2-5.4)
[2023-08-21] MEDS: Ondansetron 4 MG/2 ML Vial IV (04:52)
--- NOTE | 2023-08-21 05:07 | HP.PCM.OB_ITS ---
HPI - General General Date of Admission: 08/21/23 HPI Narrative CANDI MOYA, is a 33 F who presents IAL 6 cm dilated regular ctx no vb lof admits good fm. desires TOLAC Maternal Data Information ANDREA Calculator Estimated Delivery Date Method Current WG Current Estimate 08/22/23 LMP (Certain) 39w 6d PFSH PFSH Medical History (Updated 08/21/23 @ 05:[address] Roro Troy MD) Blood clotting disorder Encounter to determine viability of History of abnormal cervical Pap smear Pre-conception counseling Home Medications vitamins no.119-iron fumarate 29 mg-folic acid 1 mg tablet 1 tab PO DAILY 01/21/23 [History Last Taken 08/20/23 21:00 1 TAB] Allergy/AdvReac Type Severity Reaction Status Date / Time No Known Allergies Allergy Verified 08/21/23 04:33 Family History Grandmother Ovarian cancer CVA (cerebral vascular accident) Diabetes Grandfather CVA (cerebral vascular accident) Grandmother Diabetes Surgical History S/P Social History adopted: No household members: family number of children: 1 current occupational status: unemployed current occupation: [employer] current occupational exposures/hazards: No pets and animals: No history of recent travel: No sexually active: Yes Smoking Status: Never smoker alcohol intake: never substance use type: does not use caffeine: Yes Type: tea what type of physical activity do you participate in: none seatbelt use: always do you feel safe at home: Yes 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 history: - Hay History 3 Elective abortions Hx Para 1 Spontaneous abortions 1 Hx # Term Pregnancies 1 Ectopic pregnancies Hx # Pregnancies Multiple births # of living children 1 Past Pregnancies Del. Date Name GA/Weeks Outcome Route Bth Weight Infant Gen Labor Lgth Anesthesia Del Locatn Provider FOB 02/04/21 Edmun 39 live - full term 7lb 14oz Male epidural pato Guido Delivery Date: 02/04/21 Last Updated by: Priscilla Gandara, DO was an induction for LGA, cervix was swelling shut therefore csection was done Visit Details Expected Delivery Route/Plan TOLAC patient counseled regarding risks/benefits of trial of labor versus repeat . ACOG/uptodate education given to patient. 45 % likelihood of success per calculator TOLAC consent form signed: completed. Labor Preferences- CB/BF classes: just breath completed. labor support person: Hay labor intervention preferences: low interventions, allow SROM if ok. pain management options preferred:unmedicated cut cord/dad catch:no to cutting cord :plans PP control planned: PISANO, to discuss POP at visit. declines larc discussed possible routes of delivery and associated risks: reviewed methods special requests: [] Plans Covid status: declined Flu vaccine: declined Tdap vaccine: declined Rhogam: na LARC form signed: declined movement and labor precautions reviewed. Problem list reviewed and updated with the most current plan of care details and appropriate orders placed. Relevant counseling for the gestational age provided. Continue routine care and follow up unless otherwise noted in visit notes/problem list details OB Flowsheet Initial Weight: 194 lb Date -?-?-?-?-?-?-?-?-?-?-?-?- EGA Weight BP Urine Prot -?-?-?-?-?-?-?-?-?-?-?-?- Glucose FHR FuHt Pres Dilation -?-?-?-?-?-?-?-?-?-?-?-?- Effaced St Visit Note 01/21/23 -?-?-?-?-?-?-?-?-?-?-?-?- 9w 4d 194 lb (+0 oz) 116/80 Negative -?-?-?-?-?-?-?-?-?-?-?-?- Negative 170 -?-?-?-?-?-?-?-?-?-?-?-?- KW- CRL consiste nt with LMP per handheld US. early glucose ordered KW- CRL consistent with LMP per handheld US. Consulted with SM regarding Factor 5, tested due to grandfather finding out he had factor V. early glucose ordered. 02/19/23 -?-?-?-?-?-?-?-?-?-?-?-?- 13w 5d 195 lb 6 oz (+1 lb 6 oz) 121/83 Negative -?-?-?-?-?-?-?-?-?-?-?-?- Negative 160 -?-?-?-?-?-?-?-?-?-?-?-?- JV- stuff d iscussed today. chance of success is 45% 03/17/23 -?-?-?-?-?-?-?-?-?-?-?-?- 17w 3d 196 lb 6 oz (+2 lb 6 oz) 108/68 Negative -?-?-?-?-?-?-?-?-?-?-?-?- Negative 158 -?-?-?-?-?-?-?-?-?-?-?-?- LC- no vb/crampi ng. discussed and declines afp. has anatomy scheduled. 04/13/23 -?-?-?-?-?-?-?-?-?-?-?-?- 21w 2d 198 lb (+4 lb) 110/70 -?-?-?-?-?-?-?-?-?-?-?-?- 150 -?-?-?-?-?-?-?-?-?-?-?-?- SM- no vb crampi ng discussed info 05/18/23 -?-?-?-?-?-?-?-?-?-?-?-?- 26w 2d 203 lb 2 oz (+9 lb 2 oz) 116/74 Negative -?-?-?-?-?-?-?-?-?-?-?--?- Negative 150 26 -?-?-?-?-?-?-?-?-?-?-?-?- SM- no vb lof go od fm no regular ctx 06/04/23 -?-?-?-?-?-?-?-?-?-?-?-?- 28w 5d 203 lb (+9 lb) 114/68 Negative -?-?-?-?-?-?-?-?-?-?-?-?- Negative 154 32 -?-?-?-?-?-?-?-?-?-?-?-?- JV- no lof, vagi nal bleeding, or cramping. passed her 1 hr and normal cbc. declines tdap. 06/14/23 -?-?-?-?-?-?-?-?-?-?-?-?- 30w 1d 205 lb 2 oz (+11 lb 2 oz) 119/67 Negative -?-?-?-?-?-?-?-?-?-?-?-?- Negative 149 32 -?-?-?-?-?-?-?-?-?-?-?-?- JV- no lof, vagi nal bleeding, or dec fm. signed larc today. 07/02/23 -?-?-?-?-?-?-?-?-?-?-?-?- 32w 5d 206 lb 6 oz (+12 lb 6 oz) 106/73 Negative -?-?-?-?-?-?-?-?-?-?-?-?- Negative 145 33 -?-?-?-?-?-?-?-?--?-?-?-?- SM- no vb lof go od fm no regular ctx 07/16/23 -?-?-?-?-?-?-?-?-?-?-?-?- 34w 5d 209 lb 2 oz (+15 lb 2 oz) 113/74 Negative -?-?-?-?-?-?-?-?-?-?-?-?- Negative 150 35 -?-?-?-?-?-?-?-?-?-?-?-?- kw-no vb/lof/ctx . good fm. no concerns 07/30/23 -?-?-?-?-?-?-?-?-?-?-?-?- 36w 5d 209 lb 8 oz (+15 lb 8 oz) 123/86 Negative -?-?-?-?-?-?-?-?-?-?-?-?- Negative 146 37 -?-?-?-?-?-?-?-?-?-?-?-?- LC- no vb/ctx/lo f. good fm. to obtain growth scan for tolac, consent signed. desires low intervention tolac if appropriate. reviewed gbs +, may decline antibiotics, r/b/a reviewed. 08/06/23 -?-?-?-?-?-?-?-?-?-?-?-?- 37w 5d 210 lb 4 oz (+16 lb 4 oz) 116/69 Negative -?-?-?-?-?-?-?-?-?-?-?-?- Negative 140 42 Cephalic -?-?-?-?-?-?-?-?-?-?-?-?- JV-pt has decide d if no labor by 40 weeks 5 days she will proceed with section. yesterday baby weighing 8 pounds. estimated to weigh over 9 pounds at the time of her section (if delivers close to that time) 08/13/23 -?-?-?-?-?-?-?-?-?-?-?-?- 38w 5d 210 lb 8 oz (+16 lb 8 oz) 108/70 Negative -?-?-?-?-?-?-?-?-?-?-?-?- Negative 140 40 Cephalic 4 -?-?-?-?-?-?-?-?-?-?-?-?- 80 -2 KW- no vb/ lof/regular ctx. good fm. desires membrane sweep next visit 08/19/23 -?-?-?-?-?-?-?-?-?-?-?-?- 39w 4d 200 lb (+6 lb) 126/77 -?-?-?-?-?-?-?-?-?-?-?-?- 140 40 Cephalic 4.5 -?-?-?-?-?-?-?-?-?-?-?-?- 80 SM- no v b lof good fm irregular ctx SM- no vb lof good fm irregu lar ctx membranes swept NST FHR Rate Baby A Baseline: 140 Variability:: Moderate Accelerations:: 15 x 15 Decelerations:: None NST Reactive:: Yes FHR Category:: Category I Uterine Activity:: q3 ROS Constitutional Constitutional: Reports systems reviewed and no addt'l complaints, except as documented ENT HEENT: Reports systems reviewed and no addt'l complaints, except as documented Cardiovascular Cardiovascular: Reports systems reviewed and no addt'l complaints, except as documented Respiratory/Chest Respiratory/Chest: Reports systems reviewed and no addt'l complaints, except as documented Gastrointestinal Gastrointestinal: Reports systems reviewed and no addt'l complaints, except as documented and nausea; Denies abdominal pain Genitourinary Genitourinary: Reports systems reviewed and no addt'l complaints, except as documented, contractions Details: present and frequency (regular ) and movement Details: present Musculoskeletal Musculoskeletal: Reports systems reviewed and no addt'l complaints, except as documented Integumentary Integumentary: Reports as per HPI Neurologic Neurologic: Reports systems reviewed and no addt'l complaints, except as documented Endocrine Endocrinology: Reports systems reviewed and no addt'l complaints, except as documented Vital Signs Vital Signs Vital Signs: 08/21/23 04:19 08/21/23 04:18 08/21/23 04:19 Temperature Temperature Source Temporal Pulse Rate 100 Blood Pressure 135/77 H BP Systolic 135 BP Diastolic 77 Pulse Ox 08/21/23 04:19 08/21/23 04:19 Temperature 97.7 F L Temperature Source Pulse Rate Blood Pressure BP Systolic BP Diastolic Pulse Ox 98 Weight Weight: 212 lb 1.355 oz Body Mass Index (BMI) 36.3 Physical Exam Const alert, oriented x3 and healthy appearing Constitutional Narrative: uncomfortable with contractions HEENT normocephalic and moist oral mucous membranes Head and Scalp: atraumatic Neck full ROM, no lymphadenopathy, supple and thyroid normal General: trachea midline Thyroid: thyroid normal Lymph Lymphatic: no lymphadenopathy noted Chest inspection of chest normal Resp normal respiratory effort Cardio regular rate GI normal to inspection, nondistended, normoactive bowel sounds, soft to palpation and non-tender Inspection: gravid external exam normal Bimanual Exam - Vag & Uterus: uterus non-tender Manual OB Exam: estimated gestational size appropriate, presentation cephalic, dilated, effaced and station Extremity normal to inspection General Extremity: Negative for edema Skin no rashes or lesions noted Neuro deep tendon reflexes 2+ bilaterally Motor Exam: strength 5/5 throughout and clonus absent Psych mental status grossly normal Labs Labs Labs: Blood Type O POSITIVE Antibody Screen NEGATIVE Hct 34.4 % (37-47) L Hgb 11.0 g/dL (12.0-15.0) L Pap Smear Negative Obstetrics Ultrasound Syphilis Total Ab Non-reactive VZV IgG Antibody < 135 index (Immune >165) L Rubella IgG Antibody Reactive (Nonreactive) Hep Bs Antigen Non-Reactive (Nonreactive) Hepatitis C Antibody Non-Reactive (Nonreactive) Chlamydia DNA (PEMA) Negative (Negative) N.gonorrhoeae DNA (PEMA) Negative (Negative) HIV 1&2 Antibody Non-Reactive (Nonreactive) Glucose 1 Hr 50 gm 102 mg/dL (70-140) Assessment & Plan (1) Previous delivery affecting : COMMENT: AOD 9 cm (2) Susceptible to varicella (non-immune), currently : (3) Positive GBS test: COMMENT: in urine. treat in labor (4) Obesity (BMI 30.0-34.9): (5) Desires (vaginal after ) trial: COMMENT: discussed either spontaneous labor prior to scheduled cs or consider IOL if favorable juarez score by 08/27/23 (c/s scheduled 08/27) (6) : QUALIFIERS: Weeks of gestation: 39 weeks Qualified Code(s): Z3A.39 - 39 weeks gestation of COMMENT: declines NIPT, ntd, and carrier screen, nl anatomy. (7) Supervision of high risk , antepartum: COMMENT: PRR ANDREA 08/22/23 boy Heber PC Edmun Spouse Hay (8) Factor 5 Leiden mutation, heterozygous: COMMENT: consulted with . no need for anticoagulants at this time (9) Active labor at term: PLAN: Plan Patient presents IAL, plan expectant management for , pitocin/AROM PRN if needed. Pain management: open to epidural. GBS positive plan IV PCN. Management of any complications: none I have reviewed the [facility] and made any clinically relevant updates.
[2023-08-21 05:56] LABS: Syphilis Antibodies Non-reactive
--- NOTE | 2023-08-21 07:15 | EX.PCM.OBRPT ---
Assessment & Plan (1) Active labor at term: (2) Previous delivery affecting : COMMENT: AOD 9 cm (3) Susceptible to varicella (non-immune), currently : (4) Positive GBS test: COMMENT: in urine. treat in labor (5) Obesity (BMI 30.0-34.9): (6) Desires (vaginal after ) trial: COMMENT: discussed either spontaneous labor prior to scheduled cs or consider IOL if favorable juarez score by 08/27/23 (c/s scheduled 08/27) (7) : QUALIFIERS: Weeks of gestation: 39 weeks Qualified Code(s): Z3A.39 - 39 weeks gestation of COMMENT: declines NIPT, ntd, and carrier screen, nl anatomy. (8) Supervision of high risk , antepartum: COMMENT: PRR ANDREA 08/22/23 luis miguel Sam PC Edmun Spouse Hay (9) Factor 5 Leiden mutation, heterozygous: COMMENT: consulted with . no need for anticoagulants at this time (10) Vaginal after : COMMENT: luis miguel sam Maternal Data Information ANDREA Calculator Estimated Delivery Date Method Current WG Current Estimate 08/22/23 LMP (Certain) 39w 6d Vaginal Delivery Operative Information Date of Procedure: 08/21/23 Pre-Operative Diagnosis: see a/p diagnoses Post-Operative Diagnosis: same Surgery / Procedure Performed: Type of Anesthesia: Epidural Special Medications: none Estimated Blood Loss: 200 Fluids Replaced: crystalloid Findings Description of Procedure: Patient began pushing and delivered the head in the CAROL ANN presentation. The head was delivered atraumatically. The anterior and posterior shoulders delivered without complication followed by the rest of the and the infant was placed on the maternal abdomen. Delayed cord clamping was employed for approximately 60 seconds. Cord was clamped and cut and gentle traction was applied to the cord and the placenta delivered spontaneously immediately following it was noted to be intact with three-vessel cord. The perineum and vagina were inspected and after numbing with lidocaine a second degree perineal laceration which was repaired in the usual fashion with 3-0 vicryl rapide. . EBL was 400. Patient and tolerated delivery well. Amniotic Fluid Description: Clear Placental Delivery Description: Spontaneous Placenta Disposition: [facility] Cord Vessel Description: 3 Vessels Cord Entanglement: None Delayed Cord Clamping: Yes Post Vaginal Delivery Medications Given After Delivery: IV Pitocin Episiotomy Description: None Complication Complications: None Multi Select Codes Urinary/Genital Urinary/Genital CPT Codes: 22427 delivery global pkg
--- NOTE | 2023-08-21 07:19 | DCINST_ITS ---
Discharge Instructions Diet Discharge Diet: No restrictions Activity Discharge Activity: Return to Normal Activity, May Not Drive (while taking narcotic pain medications.) and May Shower May resume sexual activity in: 4-6 weeks Dressing / Incision Call your doctor if your incision/area has: Continuous Slow Oozing, Sudden Increased Bleeding, Increased Pain/ Swelling, Increased Redness and Foul Smelling Discharge Follow Up Care Please Follow Up With: Roro Troy MD When: Call [phone] to make an appointment with your doctor in 6 weeks. If you had elevated blood pressure or 4th degree laceration, you will need to be seen in 2 weeks. Test Results: Test results from this visit will be discussed in further detail at your follow- up appointment, if applicable. Discharge Plan Admission Admit Date/Time: 08/21/23 04:28 Attending Provider: Roro Troy Primary Care Provider: Care Physician,Arlet Primary Discharge Orders/Prescriptions Prescriptions: No Action PNV 119-iron fum-folic acid 29 mg iron- 1 mg tablet 1 tab PO DAILY Referrals / Follow Up: Care Physician,No Primary [Primary Care Provider] - Disposition Disposition (needs filled in before D/C Order can be placed): Home, Self Care
[2023-08-21] MEDS: Oxytocin 10 UNITS/ML Vial IM (08:14)
[2023-08-21] MEDS: Oxytocin 15 Units/NS 250ml 15 UNITS/250 ML IV.SOLN 83 UNITS IV (08:14)
[2023-08-21] MEDS: Lidocaine 1% (20 ml mdv) 20 ML Vial INFILT (08:18)
[2023-08-21] MEDS: Naproxen 500 MG Tablet PO (09:50)
--- NOTE | 2023-08-21 11:26 | NURSING ---
Patient denies having any first degree relatives who had a blood clot at a young age.
[2023-08-21] MEDS: Senna/Docusate Sodium 1 Tablet PO (13:08)
--- NOTE | 2023-08-21 13:20 | NURSING ---
Vitals were taken while patient was in the nursery during recovery. This RN reviewed the vitals, but the paper they were written on is misplaced. Vitals were WNL. RN at her side at all times.
== END 2023-08-21 14:05 | disposition home or self-care (01) | DRG 807 ==
LOC: WPOUT 04:33 → WP 04:33
PROVIDERS: Admitting Provider Obstetrics & Gynecology; Visit Provider Obstetrics & Gynecology
DX: O34.219 Maternal care for unspecified type scar from previous cesarean delivery (principal); Z37.0 Single live birth; O70.1 Second degree perineal laceration during delivery; O99.214 Obesity complicating childbirth; O99.824 Streptococcus B carrier state complicating childbirth; Z3A.39 39 weeks gestation of pregnancy
CPT/HCPCS: 59025; 59050; 85025; 86780; 86850; 86900; 86901; 99221; J7120; G0378; J2405

== ENCOUNTER → 2024-09-22 | Outpatient (CLI) | payer SELFPAY ==
[2024-09-22 17:00] LABS: Absolute Lymphocyte Count 2.44 X10^3/uL (0.83-4.51); Absolute Neutrophil Count 7.8 X10^3/uL (2.0-7.7); Basophil# 0.06 X10^3/uL; Basophil% 0.5 % (0-1); Eosinophil# 0.13 X10^3/uL; Eosinophils% 1.2 % (0-5); Hematocrit 40.7 % (37-47); Lymphocyte # 2.44 X10^3/ul (0.83-4.51); Lymphocyte % 21.8 % (19-41); Mean Corp Hgb Conc 34.4 g/dL (32-36); Mean Corpuscular Hgb 30.6 pg (27.0-32.0); Mean Corpuscular Volume 88.9 fL (81-99); Mean Platelet Vol. 10.3 fl (6.2-12.0); Monocyte# 0.73 X10^3/uL; Monocyte% 6.5 % (0-10); NRBC Flagged by Analyzer 0 % (0-5); Neutrophil # 7.77 X10^3/uL (2.7-7.7); Neutrophil % 69.6 % (47-70); Platelet Count 356 K/mm3 (150-450); RBC Distribution Width CV 12.6 % (11.6-14.6); RBC Distribution Width SD 40.9 fl (35.1-43.9); Red Blood Count 4.58 M/mm3 (4.2-5.4); White Blood Count 11.2 K/mm3 (4.4-11.0)
[2024-09-22 17:29] LABS: HIV Nonreactive (Nonreactive); Hepatitis B Surface Antigen Nonreactive (Nonreactive); Hepatitis C Antibody Nonreactive (Nonreactive); Rubella IgG REAC (Nonreactive); Syphilis Antibodies Nonreactive (Nonreactive)
[2024-09-22 18:00] LABS: Hemoglobin A1c 5.4 % (<=5.6)
[2024-09-25 21:07] LABS: Chlamydia By Nucleic Acid AMP Negative (Negative); Gonococcus By Nucleic Acid AMP Negative (Negative)
== END | disposition home or self-care (01) ==
PROVIDERS: Advanced Practice Midwife; Referring Provider Registered Nurse; Visit Provider Registered Nurse
DX: O99.210 Obesity complicating pregnancy, unspecified trimester (principal); Z3A.00 Weeks of gestation of pregnancy not specified
CPT/HCPCS: 36415; 83036; 85025; 86703; 86762; 86780; 86803; 86850; 86900; 86901; 87086; 87088; 87340; 87491; 87591

== ENCOUNTER → 2024-12-08 | Outpatient (CLI) | payer SELFPAY ==
--- NOTE | 2024-12-08 15:02 | US_ITS ---
PROCEDURE: OB ANATOMY SCAN 12/08/2024 REASON FOR EXAM: ANATOMY SCAN TECHNIQUE: High resolution obstetric ultrasound performed using a 2D transducer. Standard views obtained, including biometry, anatomy survey, and Doppler studies. FINDINGS Single viable intrauterine fetus in breech presentation. Placenta is fundal, grade 0. No placenta previa. Ultrasound gestational age is 19 weeks and 6 days. ANDREA 04/28/2025. LMP gestational age is 20 weeks 0 day. ANDREA 04/27/2025. cardiac activity is noted. Heart rate is 155 beats per minute. Cervix is closed and measures 3.6 cm. Normal amniotic fluid. DIMENSIONS: Biparietal Diameter: 4.6 cm/20 weeks 1 day Head Circumference: 17.2 cm/19 weeks 6 days Abdominal Circumference: 15.1 cm/20 weeks 2 days Femur Length: 3.1 cm/19 weeks 5 days ESTIMATED WEIGHT: 332 g plus/-50 g ESTIMATED WEIGHT PERCENTILE (24+ weeks): 50.49 ANATOMY: Cerebellum measures 2 cm. Cm measures 0.55 cm. Cervical spine is unremarkable. Thoracic, lumbar and sacrum spine is not fully visualized due to baby's position, follow-up is recommended. Cranium, chest, cardiac, abdomen and pelvis anatomical structures and extremities are visualized and are unremarkable. US/OB Anatomy Scan IMPRESSION: Single viable intrauterine fetus in breech presentation. Concordant growth. Ultrasound gestational age is 19 weeks and 6 days. ANDREA 04/28/2025. LMP gestational age is 20 weeks 0 day. ANDREA 04/27/2025. Limited visualization of the thoracic, lumbar and sacral spine otherwise normal anatomy. Follow-up is advised. Reading Location: [id number]
== END | disposition home or self-care (01) ==
LOC: US 15:00
PROVIDERS: Referring Provider Obstetrics & Gynecology; Visit Provider Obstetrics & Gynecology
DX: O09.90 Supervision of high risk pregnancy, unspecified, unspecified trimester (principal); Z3A.00 Weeks of gestation of pregnancy not specified
CPT/HCPCS: 76805

== ENCOUNTER → 2024-12-26 | Outpatient (CLI) | payer SELFPAY ==
--- NOTE | 2024-12-26 15:22 | US_ITS ---
PROCEDURE: OB LIMITED (NO BIOMETRICS) 12/26/2024 REASON FOR EXAM: SPINE VIEWS TECHNIQUE: OB LIMITED (NO BIOMETRICS) COMPARISON: Prior study dated December 08, 2024. FINDINGS Number: 1 Position: Vertex Placental Position: Fundal and posterior. Placental Abnormalities: No evidence of previa. Cardiac Motion: 152 beats per minute. (Average) Trunk and Limb Motion: Present. Imaging of the spine was obtained. No abnormality is seen. US/OB Limited (No Biometrics) IMPRESSION: Normal visualized spine. Reading Location: [id number]
== END | disposition home or self-care (01) ==
LOC: US 15:20
PROVIDERS: Referring Provider Nurse Practitioner Women's Health; Visit Provider Nurse Practitioner Women's Health
DX: Z34.92 Encounter for supervision of normal pregnancy, unspecified, second trimester (principal); Z3A.21 21 weeks gestation of pregnancy
CPT/HCPCS: 76815

== ENCOUNTER 2025-02-06 09:39 | Outpatient (CLI) | payer SELFPAY ==
--- NOTE | 2025-02-06 10:38 | US_ITS ---
PROCEDURE: OB BIOPHYSICAL PROF W/O NST 02/06/2025 REASON FOR EXAM: IRREGULAR HEARTRATE TECHNIQUE: OB BIOPHYSICAL PROF W/O NST COMPARISON: None FINDINGS Number: 1 Position: Breech Placental Position: Posterior and fundal in location. Placental Abnormalities: No evidence of previa. Baseline: 28 weeks and 4 days ESTIMATED DATE OF DELIVERY: Baseline: April 27, 2025 BIOPHYSICAL ASSESSMENT: Amniotic Fluid Volume: 4.8 cm Amniotic Fluid Index: 15.6 (8-24 cm normal range) Cardiac Motion: 136 beats per minute (average) Trunk and Limb Motion: Present. Biophysical profile: Breathing movements: 2 Gross body movements: 2 tone: 2 Amniotic fluid volume: 2 Total score: 8/8 US/OB Biophysical Prof W/O NST IMPRESSION: Normal biophysical profile score. Reading Location: [id number]
[2025-02-06 10:41] VITALS: BP 144/75; PULSE 103
[2025-02-06 10:42] VITALS: RESP 16; TEMP 36.6
[2025-02-06 10:45] VITALS: BMI 36.8
[2025-02-06 12:18] LABS: Hematocrit 32.2 % (37-47); Hemoglobin 10.6 g/dL (12.0-15.0); Immature Granulocytes Count 0.100 X10^3/uL (0.0-0.0); Mean Corp Hgb Conc 32.9 g/dL (32-36); Mean Corpuscular Volume 89.7 fL (81-99); Mean Platelet Vol. 10.5 fl (6.2-12.0); NRBC Flagged by Analyzer 0 % (0-5); Platelet Count 268 K/mm3 (150-450); RBC Distribution Width CV 13.1 % (11.6-14.6); RBC Distribution Width SD 42.8 fl (35.1-43.9); Red Blood Count 3.59 M/mm3 (4.2-5.4); White Blood Count 11.1 K/mm3 (4.4-11.0)
[2025-02-06 13:22] LABS: Glucose Challenge Gest 1H 50g 121 mg/dL (70-140); HIV Nonreactive (Nonreactive); Syphilis Antibodies Nonreactive (Nonreactive)
--- NOTE | 2025-02-06 20:20 | OB.TRI.HP_ITS ---
HPI - General HPI Narrative CANDI MOYA, is a 34 y/o @ 28 weeks 6days who presents to L&D from office. She was sent down by Renetta Hinojosa for tachycardia and possible arrhythmia. a BPP and prolonged monitoring was ordered Maternal Data Information ANDREA Calculator Estimated Delivery Date Method Current WG Current Estimate 04/27/25 LMP (Certain) 28w 6d Other Estimates 04/27/25 Ultrasound #1 28w 6d PFSH PFSH Medical History Vaginal after Blood clotting disorder Encounter to determine viability of History of abnormal cervical Pap smear Pre-conception counseling Home Medications ?Medication ?Instructions ?Recorded ?Last Taken ?Type PNV 153-FA 400 mcg-om3 35 mg-dha 1 tab PO DAILY pregna ncy 09/05/24 02/05/25 20:00 History 25 mg-epa 5 mg-fish oil chew tablet 1 TAB magnesium 250 mg tablet 250 mg PO QDAY 09/05/24 Unkn own History Held on 02/06/25. Instructions: per pt Allergy/AdvReac Type Severity Reaction Status Date / Time No Known Allergies Allergy Verified 02/06/25 10:43 Family History Grandmother Ovarian cancer CVA (cerebral vascular accident) Diabetes Grandfather CVA (cerebral vascular accident) Factor V Leiden Maternal Grandmother Diabetes Surgical History S/P Social History adopted: No household members: spouse and children housing: house number of children: 2 current occupational status: unemployed current occupation: [employer] current occupational exposures/hazards: No pets and animals: No history of recent travel: No sexually active: Yes Smoking Status: Never smoker alcohol intake: never substance use type: does not use well-balanced diet: daily or most days caffeine: Yes Type: carbonated beverages Number of servings: 1 eating out: rarely or never during the past year weight has: increased > 10 lbs what type of physical activity do you participate in: none neftaly/yazidi: [employer]ist seatbelt use: always do you feel safe at home: Yes 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 history: - [employer] History 4 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 Date Name GA/Weeks Outcome Route Bth Weight Infant Gen Labor Lgth Anesthesia Del Locatn Provider FOB 02/04/21 [facility] 39 live - full term 7lb 14oz Male epidural [facility] 08/21/23 [facility] 39 live - full term 9#11oz Male none WC KRISTAL Hay Delivery Date: 02/04/21 Last Updated by: Priscilla Gandara, DO was an induction for LGA, cervix was swelling shut therefore csection was done Delivery Date: 08/21/23 Last Updated by: Laura Rowell Baby transported due to breathing issues several hours after delivery Visit Details Expected Delivery Route/Plan patient counseled regarding risks/benefits of trial of labor versus repeat c esarean. ACOG/uptodate education given to patient. [] % likelihood of success per calculator TOLAC consent form signed: [] Labor Preferences- CB/BF classes: no labor support person: Octavio labor intervention preferences: [] pain management options preferred: limited cut cord/dad catch: no : you PP control planned: discussed discussed possible routes of delivery and associated risks: [] special requests: [] patient counseled regarding risks/benefits of trial of labor versus repeat . ACOG/uptodate education given to patient. [] % likelihood of success per calculator TOLAC consent form signed: [] Plans Covid status: [] Flu vaccine: [] Tdap vaccine: declines Rhogam: na LARC form signed: yes Problem list reviewed and updated with the most current plan of care details and appropriate orders placed. Relevant counseling for the gestational age provided. Continue routine care and follow up unless otherwise noted in visit notes/problem list details OB Flowsheet Initial Weight: 207 lb Date -?-?-?-?-?-?-?-?-?-?-?-?- EGA Weight BP Urine Prot -?-?-?-?-?-?-?-?-?--?-?-?- Glucose FHR FuHt Pres Dilation -?-?-?-?-?-?-?-?-?-?-?-?- Effaced St Visit Note 09/22/24 -?-?-?-?-?-?-?-?-?-?-?-?- 9w 0d 207 lb 4 oz (+4 oz) 126/79 -?-?-?-?-?-?-?-?-?-?-?-?- 188 -?-?-?-?-?-?-?-?-?-?-?-?- KW- CRL cons wit h dates. Declines NIPT 10/24/24 -?-?-?-?-?-?-?-?-?-?-?-?- 13w 4d 206 lb 4 oz (-12 oz) 110/76 Negative -?-?-?-?-?-?-?-?-?-?-?-?- Negative 157 -?-?-?-?-?-?-?-?-?-?-?-?- SM- no vb crampi ng 11/22/24 -?-?-?-?-?-?-?-?-?-?-?-?- 17w 5d 207 lb 8 oz (+8 oz) 113/75 Negative -?-?-?-?-?-?-?-?-?-?-?-?- Negative 145 -?-?-?-?-?-?-?-?-?-?-?-?- KW- no vb/ctx. p ossible flutters. US scheduled. AFP declined. 12/19/24 -?-?-?-?-?-?-?-?-?-?-?-?- 21w 4d 207 lb 8 oz (+8 oz) 104/70 -?-?-?-?-?-?-?-?-?-?-?-?- 140 -?-?-?-?-?-?-?-?-?-?-?-?- SM- no vb lof go od fm no regualr ctx 01/16/25 -?-?-?-?-?-?-?-?-?-?-?-?- 25w 4d 209 lb 8 oz (+2 lb 8 oz) 98/60 Negative -?-?-?-?-?-?-?-?-?-?-?-?- Negative 146 26 -?-?-?-?-?-?-?-?-?-?-?-?- MH-No VB, LOF. G ood FM Larc 02/06/25 -?-?-?-?-?-?-?-?-?-?-?-?- 28w 4d 211 lb 1 oz (+4 lb 1 oz) 119/69 Negative -?-?-?-?-?-?-?-?-?-?-?-?- Negative 140 -?-?-?-?-?-?-?-?-?-?-?-?- MH-No VB, LOF. G ood FM. Declines tdap. Note arrhythmia. BPP today ROS Constitutional Constitutional: Reports systems reviewed and no addt'l complaints, except as documented Gastrointestinal Gastrointestinal: Denies bloating, constipation, cramping, diarrhea, nausea or vomiting Genitourinary Genitourinary: Reports other Details: Denies vaginal odor, vaginal bleeding, or vaginal discharge ; Denies difficulty urinating or flank pain NST FHR Rate Baby A Baseline: 130 Variability:: Moderate Accelerations:: 15 x 15 Decelerations:: None NST Reactive:: Yes FHR Category:: Category I Uterine Activity:: no contractions noted Assessment & Plan (1) Breech presentation: COMMENT: at 28 weeks (2) arrhythmia affecting , antepartum: COMMENT: to for BPP (3) Previous delivery affecting : COMMENT: successful (4) Supervision of high-risk : QUALIFIERS: Trimester: third trimester Qualified Code(s): O09.93 - Supervision of high risk , unspecified, third trimester COMMENT: PRR, , ANDREA 04/27/25, [facility] Omalley, Hay (5) : QUALIFIERS: Weeks of gestation: 28 weeks Qualified Code(s): Z3A.28 - 28 weeks gestation of COMMENT: genetic carrier and ntd screening declined.nl anatomy (6) Advanced maternal age (AMA) in : COMMENT: nsts after 36 weeks, deliver by 41 (7) Obesity affecting : QUALIFIERS: Trimester: second trimester Obesity type affecting : unspecified obesity Qualified Code(s): O99.212 - Obesity complicating , second trimester COMMENT: HgbA1c (8) Hx successful (vaginal after ), currently : (9) Susceptible to varicella (non-immune), currently : (10) Factor 5 Leiden mutation, heterozygous: COMMENT: consulted with SM. no need for anticoagulants at this time PLAN: Plan bpp 8/8 normal heart rate and reactive NST Charges/Coding Multi Select Codes Urinary/Genital Urinary/Genital CPT Codes: 72010-43 non-stress test Interp
== END 2025-02-06 12:19 | disposition home or self-care (01) ==
LOC: BWCLAB 09:43 → WPOUT 10:36 → WP 10:36
PROVIDERS: Nurse Practitioner Women's Health; Referring Provider Obstetrics & Gynecology; Visit Provider Obstetrics & Gynecology
DX: O32.1XX0 Maternal care for breech presentation, not applicable or unspecified (principal); Z3A.28 28 weeks gestation of pregnancy; O35.BXX0 Maternal care for other (suspected) fetal abnormality and damage, fetal cardiac anomalies, not applicable or unspecified; O09.523 Supervision of elderly multigravida, third trimester; O99.213 Obesity complicating pregnancy, third trimester; O99.113 Other diseases of the blood and blood-forming organs and certain disorders involving the immune mechanism complicating pregnancy, third trimester; D68.51 Activated protein C resistance
CPT/HCPCS: 36415; 59025; 59050; 76819; 82950; 85025; 86703; 86780; 99221; G0378

== ENCOUNTER → 2025-04-03 | Outpatient (CLI) | payer SELFPAY | END | disposition home or self-care (01) | PROVIDERS: Referring Provider Nurse Practitioner Women's Health; Visit Provider Nurse Practitioner Women's Health | DX: O09.93 Supervision of high risk pregnancy, unspecified, third trimester (principal); Z3A.00 Weeks of gestation of pregnancy not specified | CPT/HCPCS: 87077; 87081; 87186 ==

== ENCOUNTER → 2025-04-06 | Outpatient (CLI) | payer SELFPAY ==
--- NOTE | 2025-04-06 15:40 | US_ITS ---
PROCEDURE: OB LIMITED WITH BIOMETRICS 04/06/2025 REASON FOR EXAM: 36 WK GROWTH SCAN Routine survey TECHNIQUE: Procedure Code: [id number] Modality: US Procedure: OB LIMITED WITH BIOMETRICS COMPARISON: 02/06/2025 FINDINGS Number: 1 Position: Vertex Placental Position: Posterior Placental Abnormalities: No evidence of previa or accreta. DIMENSIONS: Biparietal Diameter: 8.6 cm/34 weeks 4 days Head Circumference: 32.6 cm/37 weeks 0 days Abdominal Circumference: 34.7 cm, 38 weeks 4 days Femur Length: 7 cm/36 weeks 1 day ESTIMATED WEIGHT: 3186 g, +/-478 g ESTIMATED WEIGHT PERCENTILE (24+ weeks): 65.3 ESTIMATED GESTATIONAL AGE: By Ultrasound: 36 weeks 4 days ESTIMATED DATE OF DELIVERY: By Ultrasound: 04/30/2025 BIOPHYSICAL ASSESSMENT: Amniotic Fluid Volume: 8.7 cm with largest pocket at 5.9 Cardiac Motion: 138 (average) US/OB Limited With Biometrics IMPRESSION: Single live intrauterine at 36 weeks 4 days by current ultrasound wit h a ANDREA of 04/30/2025. heart rate at 138 beats per minute. No suspicious sonographic findings, normal growth noted since the previous study Reading Location: [id number]
== END | disposition home or self-care (01) ==
LOC: US 15:39
PROVIDERS: Referring Provider Nurse Practitioner Women's Health; Visit Provider Nurse Practitioner Women's Health
DX: O09.93 Supervision of high risk pregnancy, unspecified, third trimester (principal); Z3A.00 Weeks of gestation of pregnancy not specified
CPT/HCPCS: 76816

== ENCOUNTER 2025-04-21 04:13 | Inpatient (IN) | payer SELFPAY ==
[2025-04-21] VITALS (42 sets, daily range): BP systolic 105–137; BP diastolic 63–83; PULSE 75–105; RESP 16–18; TEMP 36.1–37; O2SAT 94–100; BMI 36.7
--- OUTSIDE RECORDS SUMMARY | 2025-04-21 04:01 | XMS RPT_ITS | CCD ---
Author Organization [facility]iniSy[facility] Care Team Providers Care Channel Marketing Manager Name Role Phone Randy Botello Unavailable Unavailable Randy Botello Unavailable Unavailable Unavailable Randy Botello Unavailable HodlenRj Unavailable Care Physician, No Primary Primary Care Provider Unavailable Care Physician, No Primary Referring Provider Un available POPEYE Leblanc Attending Provider Dr. Priscilla Gandara Attending Provider POPEYE Covarrubias Attending Provider Dr. Roro Troy Attending Provider Care Physician, No Primary Primary Care Provider Unavailable Care Physician, No Primary Referring Provider Un available Dr. Priscilla Gandara Attending Provider POPEYE Covarrubias Attending Provider Dr. Roro Troy Attending Provider Care Physician, No Primary Primary Care Provider Unavailable Care Physician, No Primary Referring Provider Un available Dr. Roro Troy Attending Provider Dr. Priscilla Gandara Attending Provider POPEYE Leblanc Attending Provider POPEYE Covarrubias Attending Provider Dr. Roro Troy Admit Provider Dr. Roro Troy Other Provider Care Physician, No Primary Primary Care Provider Unavailable Care Physician, No Primary Referring Provider Un available Sindhu Leblanc CNM Attending Provider Satish NYE Chinyere Attending Provider [phone] Satish CNM, Chinyere Referring Provider [phone] Woodrow DICKSON, Dr. Read Attending Provider [phone] Dr. Roro Troy MD Referring Provider [phone] Valier LOCATOR-C, Renetta Attending Provider [phone] Valier LOCATOR-C, Renetta Referring Provider [phone] Care Physician, No Primary Referring Provider Un available Sindhu Leblanc CNM Attending Provider [phone] Care Physician, No Primary Primary Care Provider Unavailable Micaela LOCATOR-C, Renetta Other Provider [phone] Sailaja Sidhu DO, Dr. Wells Attending Provider Dr. Priscilla Gandara DO Referring Provider Care Physician, No Primary Referring Provider Un available Dr. Roro Troy MD Attending Provider [phone] Dr. Priscilla Gandara DO Other Provider [phone] Chinyere Covarrubias CNM Attending Provider [phone] Sindhu Leblanc CNM Attending Physician [phone] Dr. Roro Troy MD Attending Physician Care Physician, No Primary Primary Care Physicia n Unavailable Micaela LOCATOR-CRenetta Attending Physician [phone] Micaela LOCATOR-C, Renetta Nurse Practitioner [phone] Dr. Priscilla Gandara DO Attending Physician Dr. Priscilla Gandara DO Nurse Practitioner Chinyere Covarrubias CNM Attending Physician [phone] Care Physician, No Primary Referring Provider Un available Dr. Roro Troy MD Attending Physician Care Physician, No Primary Primary Care Physicia n Unavailable Chinyere Covarrubias Attending Unavailable Care Physician, No Primary Referring Unava ilable Care Physician, No Primary Primary Care Unava ilable Priscilla Gandara Attending Unavailabl e Care Physician, No Primary Referring Unava ilable Care Physician, No Primary Primary Care Unava ilable Care Physician, No Primary Referring Unava ilable Care Physician, No Primary Primary Care Unava ilable Roro Troy Attending Unavailable Care Physician, No Primary Referring Unava ilable Care Physician, No Primary Primary Care Unava ilable Micaela LOCATOR, Renetta Attending Unavailable Care Physician, No Primary Referring Unava ilable Care Physician, No Primary Primary Care Unava ilable Micaela LOCATOR, Renetta Attending Unavailable Priscilla Gandara Attending Unavailabl e Care Physician, No Primary Primary Care Unava ilable Care Physician, No Primary Referring Unava ilable Care Physician, No Primary Primary Care Unava ilable Roro Troy Attending Unavailable Care Physician, No Primary Referring Unava ilable Sindhu Leblanc Attending Unavailable Care Physician, No Primary Referring Unava ilable Care Physician, No Primary Referring Unava ilable Roro Troy Attending Unavailable Care Physician, No Primary Primary Care Unava ilable Sindhu Leblanc Attending Unavailable Care Physician, No Primary Referring Unava ilable Priscilla Gandara Referring Unavailabl e Priscilla Gandara Attending Unavailabl e Care Physician, No Primary Primary Care Unava ilable Valier LOCATOR, Renetta Consulting Unavailable Priscilla Gandara Consulting Unavailabl e Roro Troy Attending Unavailable Care Physician, No Primary Referring Unava ilable Care Physician, No Primary Referring Unava ilable Care Physician, No Primary Primary Care Unava ilable Micaela LOCATOR, Renetta Attending Unavailable Care Physician, No Primary Primary Care Unava ilable Micaela LOCATOR, Renetta Referring Unavailable Valier LOCATOR, Renetta Attending Unavailable Care Physician, No Primary Primary Care Unava ilable Valier LOCATOR, Renetta Attending Unavailable Micaela LOCATOR, Renetta Referring Unavailable Care Physician, No Primary Primary Care Unava ilable Valier LOCATOR, Renetta Referring Unavailable Micaela LOCATOR, Renetta Attending Unavailable Care Physician, No Primary Primary Care Unava ilable Roro Troy Attending Unavailable Roro Troy Referring Unavailable CovarrubiasChinyere Referring Unavailable Covarrubias, Chinyere Attending Unavailable Care Physician, No Primary Primary Care Unava ilable Priscilla Gandara Referring Unavailabl e Priscilla Gandara Attending Unavailabl e Care Physician, No Primary Primary Care Unava Renetta Zeng NP Consulting Unavailable Medications Current Medications Medication Drug Class(es) Dates Sig (Normalized) Sig (Original) Pnv 119-Iron Fum-Folic Acid (5 sources) Start: 01-21-2023 take 1 tablet by mouth once daily Pnv 119-Iron Fum-Folic Acid Active 1 TABLET PO DAILY January 20, 2023 11:00pm Start: 01-21-2023 take 1 tablet by laurie th once daily Pnv 119-Iron Fum-Folic Acid Active 1 TABLET PO DAILY January 21, 2023 12:00am Pnv No.894-Or-Mr7-Dha-Epa-Fi sh 400 mcg-35 mg- 25 mg-5 mg tablet,chewable (13 sources) Start: 09-05-2024 Start: 09-05-2024 Pnv No.153-Fa- Is6-Wxn-Kqp-Fish 400 mcg-35 mg- 25 mg-5 mg tablet,chewable Active 1 {tbl} PO DAILY September 05, 2024 1:00am Complies with drug therapy Start: 09-05-2024 Pnv No.153-Fa- Pb7-Qxm-Eha-Fish 400 mcg-35 mg- 25 mg-5 mg tablet,chewable Active 1 {tbl} PO DAILY September 05, 2024 1:00am Start: 09-05-2024 Pnv No.153-Fa- Kk2-Wbv-Cox-Fish 400 mcg-35 mg- 25 mg-5 mg tablet,chewable Active {tbl} PO DAILY September 05, 2024 1:00am Completed/Discontinued Medications Medication Drug Class(es) Dates Sig (Normalized) Sig (Original) alpha-tocopherol acetate 30 unt / ascorbic acid 100 mg / beta carotene 1000 unt / calcium carbonate 200 mg / calcium pantothenate 7 mg / cholecalciferol 400 unt / docusate sodium 25 mg / ferrous fumarate 29 mg / folic acid 1 mg / niacinamide 15 mg / pyridoxine hydrochloride 20 mg / riboflavin 3 mg / thiamine 3 mg / vitamin b12 0.012 mg / zinc oxide 20 mg oral tablet (13 sources) Vitamin B12, Vitamin D, Vitamin C Start: 01-21-2023 End: 09-05-2024 Pnv 119-Iron Fum-Folic Acid 29 mg iron- 1 mg tablet Discontinued 1 {tbl} PO DAILY January 21, 2023 12:00am September 05, 2024 11:23am Clementine 0.35 MG Oral Tablet (4 sources) Start: 03-04-2021 take 1 tablet by mouth once daily Clementine 0.35 MG Oral Tablet TAKE ONE TABLET BY MOUTH DAILY Quantity: 1 Refills: 12 Ordered: 04-Mar-2021 Rj Hatch MD Start : 04-Mar-2021 Active Deblitane 0.35 MG Oral Tablet (1 source) Start: 01-28-2022 take 1 tablet by mouth once daily Deblitane 0.35 MG Oral Tablet TAKE 1 TABLET BY MOUTH DAILY Quantity: 28 Refills: 12 Ordered: 28-Jan-2022 Rj Hatch MD Start : 28-Jan-2022 Active 0.4 ml enoxaparin sodium 100 mg/ml prefilled syringe (2 sources) Low Molecular Weight Heparin Start: 02-18-2021 inject 40 mg by subcutaneous injection once daily Enoxaparin Sodium 40 MG/0.4ML Subcutaneous Solution INJECT 40 MG Daily Quantity: 30 Refills: 0 Ordered: 18-Feb-2021 Tang Rios DO Start : 18-Feb-2021 Active Magnesium (13 sources) Start: 09-05-2024 take 1 tablet by mouth once daily Start: 09-05-2024 take 1 tablet by laurie th once daily Magnesium 250 mg tablet Active 250 mg PO daily September 05, 2024 1:00am On Hold: per pt Complies with drug therapy Start: 09-05-2024 take 1 tablet by laurie th once daily Magnesium 250 mg tablet Active 250 mg PO daily September 05, 2024 1:00am On Hold: per pt Start: 09-05-2024 take 1 tablet by laurie th once daily Magnesium 250 mg tablet Active 250 mg PO daily September 05, 2024 1:00am ondansetron 4 mg disintegrating oral tablet (13 sources) Serotonin-3 Receptor Antagonist Start: 09-22-2024 End: 02-06-2025 take 1 tablet by mouth every six hours as needed for nausea and vomiting Ondansetron 4 mg tablet,disintegrating Discontinued 4 mg PO EVERY 6 HOURS as needed for nausea and vomiting 24 07September 22, 2024 12:00am February 06, 2025 10:44am Nausea and vomiting during Vomiting of , unspecified Vitamin 27-0.8 MG Oral Tablet (1 source) Vitamin 27-0.8 MG Oral Tablet Refills: 0 DO Active Vitamin 27-0.8 MG Oral Tablet (17 sources) Vitamin 27-0.8 MG Oral Tablet Quantity: 0 Refills: 0 Ordered: 10-Jul-2020 DO Active vitamin b6 100 mg oral tablet (13 sources) Start: 09-22-2024 End: 02-06-2025 take 1 tablet by mouth once daily Pyridoxine (Vitamin B6) 100 mg tablet Discontinued 100 mg PO daily September 22, 2024 12:00am February 06, 2025 10:45am NEGATED: Highlighted row has not occurred!No Current Medications (1 source) No Current Medic ations Problems Active Problems Problem Classification Problem Date Documented Date Episodic/Chronic Bacterial infection; unspecified site (20 sources) Bacteria present; Translations: [Streptococcus, group B, as the cause of diseases classified elsewhere] Onset: 5 01-25-2023 Episodic Comment on above: in urine. treat in l abor Treat in labor Coagulation and hemorrhagic disorders (20 sources) Heterozygous Factor V Leiden mutation; Translations: [Primary hypercoagulable state] Onset: 5 05-18-2022 Chronic Comment on above: consulted with SM. n o need for anticoagulants at this time distress and abnormal forces of labor (1 source) Arrested active phase of labor; Translations: [Secondary uterine inertia, unspecified as to episode of care or not applicable] 02-05-2021 Episodic Immunizations and screening for infectious disease (20 sources) Patient encounter status; Translations: [Screening examination for venereal disease] 09-18-2022 Episodic Malposition; malpresentation (20 sources) Breech presentation; Translations: [Maternal care for breech presentation, not applicable or unspecified] Onset: 5 02-06-2025 Episodic Comment on above: at 28 weeks at 28 weeks, plan us at 36 weeks for position at 28 weeks, plan us at 36 weeks for position, consider growth for ama Other aftercare (4 sources) Surgical follow-up; Translations: [Follow-up examination, following surgery, unspecified] Episodic Other complications of ; puerperium affecting management of mother (4 sources) Deliveries by ; Translations: [ delivery, without mention of indication, unspecified as to episode of care or not applicable] Episodic Comment on above: 02/04/2021_39weeks_M ale_7# 10oz; Other complications of ; puerperium affecting management of mother (2 sources) Large for gestation age fetus 04-08-2025 Episodic Comment on above: 36 wk:Growth US: EFW 65%, AC 93% Other complications of (20 sources) Maternal obesity complicating , childbirth and the puerperium, antepartum; Translations: [Obesity complicating , unspecified trimester] 09-05-2024 Chronic Comment on above: HgbA1c Other complications of (2 sources) Obesity complicating , second trimester; Translations: [Obesity complicating , second trimester] Onset: 5 Chronic Other complications of (1 source) Obesity complicating , unspecified trimester; Translations: [Obesity complicating , unspecified trimester] Onset: 5 Chronic Other complications of (20 sources) High risk ; Translations: [Supervision of high risk , unspecified, unspecified trimester] 01-21-2023 Episodic Comment on above: PRR, , ANDREA 04/27, PC Ed[facility], Flaco, Hay PRR ANDREA 08/22/23 boy Fl[facility] PC [facility] Spouse Hay PRR, , ANDREA 04/27, PC [place], [place], Hay Other complications of (20 sources) Varicella non-immune; Translations: [Supervision of other high risk pregnancies, unspecified trimester] 03-10-2023 Episodic Other complications of (7 sources) with inconclusive viability, not applicable or unspecified; Translations: [ with inconclusive viability] 02-19-2023 Episodic Other complications of (19 sources) Supervision of other high risk pregnancies, unspecified trimester; Translations: [Other specified conditions influencing health status] Onset: 5 03-17-2023 Episodic Other complications of (20 sources) Advanced maternal age ; Translations: [Elderly multigravida, unspecified as to episode of care or not applicable] 09-22-2024 Episodic Comment on above: nsts after 36 weeks, deliver by 41 nsts after 36 weeks, deliver by 41; 36 wk growth US Other complications of (20 sources) condition affecting obstetrical care of mother; Translations: [Maternal care for abnormalities of the heart rate or rhythm, unspecified trimester, not applicable or unspecified] 02-06-2025 Episodic Comment on above: to WP for BPP Other complications of (2 sources) Supervision of high risk , unspecified, third trimester; Translations: [Supervision of high risk , unspecified, third trimester] Onset: 5 Episodic Other complications of (1 source) Supervision of elderly multigravida, unspecified trimester; Translations: [Supervision of elderly multigravida, unspecified trimester] Onset: 5 Episodic Other complications of (2 sources) Maternal care for abnormalities of the heart rate or rhythm, unspecified trimester, not applicable or unspecified; Translations: [Maternal care for abnormalities of the heart rate or rhythm, unspecified trimester, not applicable or unspecified] Onset: 5 Episodic Other complications of (1 source) Supervision of high risk , unspecified, second trimester; Translations: [Supervision of high risk , unspecified, second trimester] Onset: Episodic Other nutritional; endocrine; and metabolic disorders (18 sources) Obese class I; Translations: [Obesity, unspecified] 01-21-2023 Chronic Other nutritional; endocrine; and metabolic disorders (20 sources) Obesity, unspecified; Translations: [Obesity, unspecified] 01-21-2023 Chronic Other screening for suspected conditions (not mental disorders or infectious disease) (1 source) Encounter for screening for diabetes mellitus; Translations: [Encounter for screening for diabetes mellitus] Onset: 5 Episodic Previous (20 sources) Maternal request for obstetric intervention; Translations: [Maternal care for unspecified type scar from previous delivery] Onset: 5 01-21-2023 Episodic Comment on above: discussed either spo ntaneous labor prior to scheduled cs or consider IOL if favorable juarez score by 08/27/23 (c/s scheduled 08/27) sm boy flaco Residual codes; unclassified (1 source) Gestation period, 12 weeks; Translations: [12 weeks gestation of ] Episodic Residual codes; unclassified (2 sources) Gestation period, 28 weeks; Translations: [ state, incidental] Episodic Residual codes; unclassified (1 source) Gestation period, 30 weeks; Translations: [ state, incidental] Episodic Residual codes; unclassified (1 source) Gestation period, 32 weeks; Translations: [ state, incidental] Episodic Residual codes; unclassified (4 sources) Gestation period, 36 weeks; Translations: [ state, incidental] Episodic Residual codes; unclassified (1 source) Gestation period, 37 weeks; Translations: [ state, incidental] Episodic Residual codes; unclassified (3 sources) Gestation period, 38 weeks; Translations: [ state, incidental] Episodic Residual codes; unclassified (1 source) 38 weeks gestation of ; Translations: [38 weeks gestation of ] Onset: 5 Episodic Residual codes; unclassified (1 source) 34 weeks gestation of ; Translations: [34 weeks gestation of ] Onset: 5 Episodic Residual codes; unclassified (1 source) 28 weeks gestation of ; Translations: [28 weeks gestation of ] Onset: 5 Episodic Unclassified (2 sources) INDUCTION 01-29-2021 Comment on above: INDUCTION Unclassified (1 source) 4 WEEK POST VISIT 01-29-2021 Comment on above: 4 WEEK POST V ISIT Unclassified (1 source) 39 weeks gestation of 01-31-2021 Unclassified (1 source) Arrested active phase of labor 02-05-2021 Unclassified (1 source) Status post delivery 02-05-2021 Unclassified (2 sources) Normal labor; Translations: [Active labor at term] 08-21-2023 Unclassified (2 sources) Other underimmunization status; Translations: [Other underimmunization status] Onset: 5 Unclassified (1 source) Maternal care for other (suspected) abnormality and damage, cardiac anomalies, not applicable or unspecified; Translations: [Maternal care for other (suspected) abnormality and damage, cardiac anomalies, not applicable or unspecified] Onset: 5 Past or Other Problems Problem Classification Problem Date Documented Da te Episodic/Chronic Other complications of (20 sources) Supervision of high risk , unspecified, unspecified trimester; Translations: [Supervision of unspecified high-risk ] Onset: 12-14-2024 01-21-2023 Episodic Other complications of (1 source) Vomiting of , unspecified; Translations: [Vomiting of , unspecified] Onset: 09-22-2024 Episodic Other and delivery including normal (20 sources) Gestation period, 39 weeks; Translations: [ state, incidental] Onset: 01-01-2025 01-31-2021 Episodic Comment on above: declines NIPT, ntd, and carrier screen, nl anatomy. genetic carrier and ntd screening declined. genetic carrier and ntd screening declined.nl anatomy Residual codes; unclassified (1 source) 17 weeks gestation of ; Translations: [17 weeks gestation of ] Onset: 11-22-2024 Episodic Residual codes; unclassified (1 source) 9 weeks gestation of ; Translations: [9 weeks gestation of ] Onset: 09-22-2024 Episodic Unclassified (3 sources) Patient encounter status; Translations: [Encounter for Papanicolaou smear of cervix] Unclassified (18 sources) Finding of menstrual bleeding; Translations: [Menstruation] Comment on above: Onset age 10 years; NEGATED: Highlighted row has not occurred!Residual codes; unclassified (2 sources) Disease Episodic Results Test Name Value Interpretation Reference Range Facility Rn Care Manager Office Visit Reporton 04-17-2025 Rn Care Manager Office Visit Report [facility] [address], [address] [place] [address] OFFICE VISIT Date of Service: 04/17/25 MR#: [id number] Acct: [id number] Name: CANDI MOYA Rep #: [id number] : 1990 Provider: Dr. Roro cui MD Age/Sex: 34/F Location: [facility] Status: Signed Intake Vital Signs 02/06/25 09:59 04/10/25 09:42 04/17/25 09:39 Height 5 ft 4 in 5 ft 4 in 5 ft 4 in Weight: 214 lb 7 oz BMI 36.8 BP 121/85 H Intake Visit Reasons: 38 WK OB/NST Valve Maker Required: No Is patient in pain?: No Allergies No Known Allergies Allergy (Verified 04/17/25 09:48) Medications ???Medication ???Instructions ???Recorded ???Confirmed ???Type PNV 153-FA 400 mcg-om3 35 mg-dha 1 tab PO DAILY 09/05/24 04/17/25 History 25 mg-epa 5 mg-fish oil chew tablet magnesium 250 mg tablet 250 mg PO QDAY 09/05/24 04/17/25 H istory Held on 02/06/25. Instructions: per pt Last Menstrual Period: 07/21/24 Zika: Zika virus screening: Negative : No PFSH PFSH Medical History Vaginal after Blood clotting disorder Encounter to determine viability of History of abnormal cervical Pap smear Pre-conception counseling Surgical History S/P Family History Grandmother Ovarian cancer CVA (cerebral vascular accident) Diabetes Grandfather CVA (cerebral vascular accident) Factor V Leiden Maternal Grandmother Diabetes Social History adopted: No household members: spouse and children housing: house number of children: 2 current occupational status: unemployed current occupation: [employer] current occupational exposures/hazards: No pets and animals: No history of recent travel: No sexually active: Yes Smoking Status: Never smoker alcohol intake: never substance use type: does not use well-balanced diet: daily or most days caffeine: Yes Type: carbonated beverages Number of servings: 1 eating out: rarely or never during the past year weight has: increased > 10 lbs what type of physical activity do you participate in: none 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 Date Name GA/Weeks Outcome Route Bth Weight Infant Gen Labor Lgth Anesthesia Del Locatn Provider FOB 02/04/21 [place] 39 live - full term 7lb 14oz Male epidural ash[place] [facility] Hay 08/21/23 [place] 39 live - full term 9#11oz Male none [facility] Hay Delivery Date: 02/04/21 Last Updated by: Priscilla Gandara, DO was an induction for LGA, cervix was swelling shut therefore csection was done Delivery Date: 08/21/23 Last Updated by: Laura Rowell Baby transported due to breathing issues several hours after delivery HPI 38 WK OB/NST Details: CANDI MOYA is a 34 year old who presents for routine OB visit. OB Visit ANDREA Calculator Estimated Delivery Date Method Current WG Current Estimate 04/27/25 LMP (Certain) 38w 4d Other Estimates 04/27/25 Ultrasound #1 38w 4d Expected Delivery Route/Plan patient counseled regarding risks/benefits of trial of labor versus repeat . ACOG/uptodate education given to patient. [] % likelihood of success per calculator TOLAC consent form signed: [] Labor Preferences- CB/BF classes: no labor support person: Octavio labor intervention preferences: [] pain management options preferred: limited cut cord/dad catch: no : you PP control planned: discussed discussed possible routes of delivery and associated risks: [] special requests: [] patient counseled regarding risks/benefits of trial of labor versus repeat . ACOG/uptodate education given to patient. [] % likelihood of success per calculator TOLAC consent form signed: [] Specific Issue/Plans Covid status: [] Flu vaccine: [] Tdap vaccine: declines Rhogam: na LARC form signed: yes Problem list reviewed and updated with the most current plan of care details and appropriate orders placed. Relevant counseling for the gestational age provided. Continue routine care and follow up unless otherwise noted in visit notes/problem list details Initial Weight: 207 lb Date -???-???-???-???-???-??? -???-???-???-???-???-??? - EGA Weight BP (more content not included)... Normal [facility] Rule out Beta Strep (Grp. B) on 04-12-2025 GEORGES Pending Streptococcus agalactiae (B) Amount Growth Growth Streptococcus agalactiae (B): REACTION Ampicillin Islt NILAM <=0.25 cefTRIAXone Islt NILAM <=0.12 S Clindamycin Islt NILAM <=0.25 S Clindamycin.induced Susc Islt NEG Linezolid Islt NILAM <=2 S Vancomycin Islt NILAM 0.5 S Normal [facility] Comment on above: Performed By: #### M [phone] #### [facility] [address] [place], [address] Rn Care Manager Office Visit Reporton 04-10-2025 Rn Care Manager Office Visit Report [facility] [address] [facility], [address] [place] [address] OFFICE VISIT Date of Service: 04/10/25 MR#: [id number] Acct: [id number] Name: CANDI MOYA Rep #: [id number] : 1990 Provider: Dr. Priscilla Cadet DO Age/Sex: 34/F Location: [facility] Status: Signed Intake Vital Signs 02/06/25 09:59 04/03/25 12:57 04/10/25 09:41 04/10/25 09:42 Height 5 ft 4 in 5 ft 4 in 5 ft 4 in 5 ft 4 in Weight: 211 lb 6 oz 209 lb 9 oz BMI 36.3 35.9 BP 104/70 106/70 Intake Visit Reasons: 37 WK OB/NST Valve Maker Required: No Is patient in pain?: No Allergies No Known Allergies Allergy (Verified 04/10/25 09:41) Medications ???Medication ???Instructions ???Recorded ???Confirmed ???Type PNV 153-FA 400 mcg-om3 35 mg-dha 1 tab PO DAILY 09/05/24 04/10/25 History 25 mg-epa 5 mg-fish oil chew tablet magnesium 250 mg tablet 250 mg PO QDAY 09/05/24 04/10/25 H istory Held on 02/06/25. Instructions: per pt Last Menstrual Period: 07/21/24 Zika: Zika virus screening: Negative : No PFSH PFSH Medical History Vaginal after Blood clotting disorder Encounter to determine viability of History of abnormal cervical Pap smear Pre-conception counseling Surgical History S/P Family History Grandmother Ovarian cancer CVA (cerebral vascular accident) Diabetes Grandfather CVA (cerebral vascular accident) Factor V Leiden Maternal Grandmother Diabetes Social History adopted: No household members: spouse and children housing: house number of children: 2 current occupational status: unemployed current occupation: [employer] current occupational exposures/hazards: No pets and animals: No history of recent travel: No sexually active: Yes Smoking Status: Never smoker alcohol intake: never substance use type: does not use well-balanced diet: daily or most days caffeine: Yes Type: carbonated beverages Number of servings: 1 eating out: rarely or never during the past year weight has: increased > 10 lbs what type of physical activity do you participate in: none 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 Date Name GA/Weeks Outcome Route Bth Weight Gen Labor Lgth Anesthesia Del Locatn Provider FOB 02/04/21 Edmun 39 live - full term 7lb 14oz Male epidural ashla nd Hay 08/21/23 Flaco 39 live - full term 9#11oz Male none [facility] Delivery Date: 02/04/21 Last Updated by: Priscilla Gandara, DO was an induction for LGA, cervix was swelling shut therefore csection was done Delivery Date: 08/21/23 Last Updated by: Laura Rowell Baby transported due to breathing issues several hours after delivery HPI 37 WK OB/NST Details: CANDI MOYA is a 34 year old who presents for routine OB visit. OB Visit ANDREA Calculator Estimated Delivery Date Method Current WG Current Estimate 04/27/25 LMP (Certain) 37w 4d Other Estimates 10/24/25 Ultrasound #1 37w 4d Expected Delivery Route/Plan patient counseled regarding risks/benefits of trial of labor versus repeat . ACOG/uptodate education given to patient. [] % likelihood of success per calculator TOLAC consent form signed: [] Labor Preferences- CB/BF classes: no labor support person: Octavio labor intervention preferences: [] pain management options preferred: limited cut cord/dad catch: no : you PP control planned: discussed discussed possible routes of delivery and associated risks: [] special requests: [] patient counseled regarding risks/benefits of trial of labor versus repeat . ACOG/uptodate education given to patient. [] % likelihood of success per calculator TOLAC consent form signed: [] Specific Issue/Plans Covid status: [] Flu vaccine: [] Tdap vaccine: declines Rhogam: na LARC form signed: yes Problem list reviewed and updated with the most current plan of care details and appropriate orders placed. Relevant counseling for the gestational age provided. Continue routine care and follow up unless otherwise noted in visit notes/problem list details Initial Weight: 207 lb Date -???-?? (more content not included)... Normal [facility] OB Limited With Biometricson 04-06-2025 OB Limited With Biometrics [facility] [address] [place] [id number] OB Limited With Biometrics MR#: [id number] Acct: [id number] Name: CANDI MOYA Rep #: [id number] : 1990 F 34 From: Catrachito Prajapati MD PCP: Care Physician,No Primary Status: REG CLI Study: OB Limited With Biometrics Date of Exam: 04/06 Exam# [id number] Ordering Dr: Renetta Hinojosa NP LOCATOR -C PROCEDURE: OB LIMITED WITH BIOMETRICS 04/06/2025 REASON FOR EXAM: 36 WK GROWTH SCAN Routine survey TECHNIQUE: Procedure Code: [id number] Modality: US Procedure: OB LIMITED WITH BIOMETRICS COMPARISON: 02/06/2025 FINDINGS Number: 1 Position: Vertex Placental Position: Posterior Placental Abnormalities: No evidence of previa or accreta. DIMENSIONS: Biparietal Diameter: 8.6 cm/34 weeks 4 days Head Circumference: 32.6 cm/37 weeks 0 days Abdominal Circumference: 34.7 cm, 38 weeks 4 days Femur Length: 7 cm/36 weeks 1 day ESTIMATED WEIGHT: 3186 g, +/-478 g ESTIMATED WEIGHT PERCENTILE (24+ weeks): 65.3 ESTIMATED GESTATIONAL AGE: By Ultrasound: 36 weeks 4 days ESTIMATED DATE OF DELIVERY: By Ultrasound: 04/30/2025 BIOPHYSICAL ASSESSMENT: Amniotic Fluid Volume: 8.7 cm with largest pocket at 5.9 Cardiac Motion: 138 (average) US/OB Limited With Biometrics IMPRESSION: Single live intrauterine at 36 weeks 4 days by current ultrasound with a ANDREA of 04/30/2025. heart rate at 138 beats per minute. 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: Signed Normal [facility] - Chemistry and C hemistry - challengeOrdered By: Renetta Hinojosa on 04-03-2025 Glucose Ql (U) Negative [facility] - UrinalysisOrder ed By: Renetta Hinojosa on 04-03-2025 Protein Ql (U) Negative [facility] Rn Care Manager Office Visit Reporton 04-03-2025 Rn Care Manager Office Visit Report [facility] [address], [address] [place] [address] OFFICE VISIT Date of Service: 04/03/25 MR#: [id number] Acct: [id number] Name: CANDI MOYA Rep #: [id number] : 1990 Provider: MANISHA carbajal Age/Sex: 34/F [place] [facility] Status: Signed Intake Vital Signs 02/06/25 09:59 03/21/25 10:21 04/03/25 12:57 Height 5 ft 4 in 5 ft 4 in 5 ft 4 in Weight: 211 lb 6 oz BMI 36.3 BP 104/70 Intake Visit Reasons: 36 WK OB/NST Chief Complaint: 36 Week OB/NST Valve Maker Required: No Is patient in pain?: No Allergies No Known Allergies Allergy (Verified 04/03/25 12:58) Medications ???Medication ???Instructions ???Recorded ???Confirmed ???Type PNV 153-FA 400 mcg-om3 35 mg-dha 1 tab PO DAILY 09/05/24 04/03/25 History 25 mg-epa 5 mg-fish oil chew tablet magnesium 250 mg tablet 250 mg PO QDAY 09/05/24 04/03/25 H istory Held on 02/06/25. Instructions: per pt Last Menstrual Period: 07/21/24 Zika: Zika virus screening: Negative : No PFSH PFSH Medical History Vaginal after Blood clotting disorder Encounter to determine viability of History of abnormal cervical Pap smear Pre-conception counseling Surgical History S/P Family History Grandmother Ovarian cancer CVA (cerebral vascular accident) Diabetes Grandfather CVA (cerebral vascular accident) Factor V Leiden Maternal Grandmother Diabetes Social History adopted: No household members: spouse and children housing: house number of children: 2 current occupational status: unemployed current occupation: [employer] current occupational exposures/hazards: No pets and animals: No history of recent travel: No sexually active: Yes Smoking Status: Never smoker alcohol intake: never substance use type: does not use well-balanced diet: daily or most days caffeine: Yes Type: carbonated beverages Number of servings: 1 eating out: rarely or never during the past year weight has: increased > 10 lbs what type of physical activity do you participate in: none 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 Date Name GA/Weeks Outcome Route Bth Weight Gen Labor Lgth Anesthesia Del Locatn Provider FOB 02/04/21 Edmun 39 live - full term 7lb 14oz Male epidural ashla nd Hay 08/21/23 Flaco 39 live - full term 9#11oz Male none [facility] K[facility] Hay Delivery Date: 02/04/21 Last Updated by: Priscilla Gandara, DO was an induction for LGA, cervix was swelling shut therefore csection was done Delivery Date: 08/21/23 Last Updated by: Laura Rowell Baby transported due to breathing issues several hours after delivery HPI 36 WK OB/NST Details: CANDI MOYA is a 34 year old who presents for routine OB visit. OB Visit ANDREA Calculator Estimated Delivery Date Method Current WG Current Estimate 04/27/25 LMP (Certain) 36w 4d Other Estimates 04/27/25 Ultrasound #1 36w 4d Expected Delivery Route/Plan patient counseled regarding risks/benefits of trial of labor versus repeat . ACOG/uptodate education given to patient. [] % likelihood of success per calculator TOLAC consent form signed: [] Labor Preferences- CB/BF classes: no labor support person: Octavio labor intervention preferences: [] pain management options preferred: limited cut cord/dad catch: no : you PP control planned: discussed discussed possible routes of delivery and associated risks: [] special requests: [] patient counseled regarding risks/benefits of trial of labor versus repeat . ACOG/uptodate education given to patient. [] % likelihood of success per calculator TOLAC consent form signed: [] Specific Issue/Plans Covid status: [] Flu vaccine: [] Tdap vaccine: declines Rhogam: na LARC form signed: yes Problem list reviewed and updated with the most current plan of care details and appropriate orders placed. Relevant counseling for the gestational age provided. Continue routine care and follow up unless otherwise noted in visit notes/problem list details Initial Weight: 207 lb Date -???-???-???-???-???-??? -???- (more content not included)... Normal [facility] - Chemistry and C hemistry - challengeOrdered By: Roro Troy on 03-21-2025 Glucose Ql (U) Negative [facility] - UrinalysisOrder ed By: Roro Tryo on 03-21-2025 Protein Ql (U) Negative [facility] Rn Care Manager Office Visit Reporton 03-21-2025 Rn Care Manager Office Visit Report [facility] [address], [address] [place] [address] OFFICE VISIT Date of Service: 03/21/25 MR#: [id number] Acct: [id number] Name: CANDI MOYA Rep #: [id number] : 1990 Provider: Dr. Roro cui MD Age/Sex: 34/F Location: [facility] [place] Status: Signed Intake Vital Signs 01/16/25 13:51 03/07/25 14:18 03/21/25 10:19 03/21/25 10:21 Height 5 ft 4 in 5 ft 4 in 5 ft 4 in 5 ft 4 in Weight: 209 lb 8 oz BMI 35.9 BP 106/71 Intake Visit Reasons: 34 wk ob Valve Maker Required: No Is patient in pain?: No Allergies No Known Allergies Allergy (Verified 03/21/25 10:18) Medications ???Medication ???Instructions ???Recorded ???Confirmed ???Type PNV 153-FA 400 mcg-om3 35 mg-dha 1 tab PO DAILY 09/05/24 03/21/25 History 25 mg-epa 5 mg-fish oil chew tablet magnesium 250 mg tablet 250 mg PO QDAY 09/05/24 03/21/25 H istory Held on 02/06/25. Instructions: per pt Last Menstrual Period: 07/21/24 Zika: Zika virus screening: Negative : No PFSH PFSH Medical History Vaginal after Blood clotting disorder Encounter to determine viability of History of abnormal cervical Pap smear Pre-conception counseling Surgical History S/P Family History Grandmother Ovarian cancer CVA (cerebral vascular accident) Diabetes Grandfather CVA (cerebral vascular accident) Factor V Leiden Maternal Grandmother Diabetes Social History adopted: No household members: spouse and children housing: house number of children: 2 current occupational status: unemployed current occupation: [employer] current occupational exposures/hazards: No pets and animals: No history of recent travel: No sexually active: Yes Smoking Status: Never smoker alcohol intake: never substance use type: does not use well-balanced diet: daily or most days caffeine: Yes Type: carbonated beverages Number of servings: 1 eating out: rarely or never during the past year weight has: increased > 10 lbs what type of physical activity do you participate in: none 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 Date Name GA/Weeks Outcome Route Bth Weight Gen Labor Lgth Anesthesia Del Locatn Provider FOB 02/04/21 Edmun 39 live - full term 7lb 14oz Male epidural ashla nd Hay 08/21/23 Flaco 39 live - full term 9#11oz Male none [facility] Delivery Date: 02/04/21 Last Updated by: Priscilla Gandara, DO was an induction for LGA, cervix was swelling shut therefore csection was done Delivery Date: 08/21/23 Last Updated by: Laura Rowell Baby transported due to breathing issues several hours after delivery HPI 34 wk ob Details: CANDI MOYA is a 34 year old who presents for routine OB visit. OB Visit ANDREA Calculator Estimated Delivery Date Method Current WG Current Estimate 04/27/25 LMP (Certain) 34w 5d Other Estimates 04/27/25 Ultrasound #1 34w 5d Expected Delivery Route/Plan patient counseled regarding risks/benefits of trial of labor versus repeat . ACOG/uptodate education given to patient. [] % likelihood of success per calculator TOLAC consent form signed: [] Labor Preferences- CB/BF classes: no labor support person: Octavio labor intervention preferences: [] pain management options preferred: limited cut cord/dad catch: no : you PP control planned: discussed discussed possible routes of delivery and associated risks: [] special requests: [] patient counseled regarding risks/benefits of trial of labor versus repeat . ACOG/uptodate education given to patient. [] % likelihood of success per calculator TOLAC consent form signed: [] Specific Issue/Plans Covid status: [] Flu vaccine: [] Tdap vaccine: declines Rhogam: na LARC form signed: yes Problem list reviewed and updated with the most current plan of care details and appropriate orders placed. Relevant counseling for the gestational age provided. Continue routine care and follow up unless otherwise noted in visit notes/problem list details Initial Weight: 207 lb Date -???-???-???-???-???-??? -???-???-???-???-???-??? - (more content not included)... Normal [facility] - Chemistry and C hemistry - challengeOrdered By: Priscilla Sidhu on 03-07-2025 Glucose Ql (U) Negative [facility] - UrinalysisOrder ed By: Priscilla Sidhu on 03-07-2025 Protein Ql (U) Negative [facility] Rn Care Manager Office Visit Reporton 03-07-2025 Rn Care Manager Office Visit Report [facility] [address], [facility] [address] [place] [address] OFFICE VISIT Date of Service: 03/07/25 MR#: [id number] Acct: [id number] Name: CANDI MOYA Rep #: [id number] : 1990 Provider: Dr. Priscilla Cadet, Age/Sex: 34/F Location: [facility] [place] Status: Signed Intake Vital Signs 12/19/24 10:52 02/23/25 14:20 03/07/25 14:14 03/07/25 14:18 Height 5 ft 4 in 5 ft 4 in 5 ft 4 in 5 ft 4 in Weight: 208 lb 6 oz BMI 35.7 BP 108/70 Intake Visit Reasons: 32wk ob Valve Maker Required: No Is patient in pain?: No Allergies No Known Allergies Allergy (Verified 03/07/25 14:13) Medications ???Medication ???Instructions ???Recorded ???Confirmed ???Type PNV 153-FA 400 mcg-om3 35 mg-dha 1 tab PO DAILY 09/05/24 03/07/25 History 25 mg-epa 5 mg-fish oil chew tablet magnesium 250 mg tablet 250 mg PO QDAY 09/05/24 03/07/25 H istory Held on 02/06/25. Instructions: per pt Last Menstrual Period: 07/21/24 Zika: Zika virus screening: Negative : No PFSH PFSH Medical History Vaginal after Blood clotting disorder Encounter to determine viability of History of abnormal cervical Pap smear Pre-conception counseling Surgical History S/P Family History Grandmother Ovarian cancer CVA (cerebral vascular accident) Diabetes Grandfather CVA (cerebral vascular accident) Factor V Leiden Maternal Grandmother Diabetes Social History adopted: No household members: spouse and children housing: house number of children: 2 current occupational status: unemployed current occupation: [employer] current occupational exposures/hazards: No pets and animals: No history of recent travel: No sexually active: Yes Smoking Status: Never smoker alcohol intake: never substance use type: does not use well-balanced diet: daily or most days caffeine: Yes Type: carbonated beverages Number of servings: 1 eating out: rarely or never during the past year weight has: increased > 10 lbs what type of physical activity do you participate in: none 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 Date Name GA/Weeks Outcome Route Bth Weight Infant Gen Labor Lgth Anesthesia Del Locatn Provider FOSuzy 02/04/21 Edmun 39 live - full term 7lb 14oz Male epidural ashla nd Hay 08/21/23 Flaco 39 live - full term 9#11oz Male none [facility] KRISTAL Guido Delivery Date: 02/04/21 Last Updated by: Priscilla Gandara, DO was an induction for LGA, cervix was swelling shut therefore csection was done Delivery Date: 08/21/23 Last Updated by: Laura Rowell Baby transported due to breathing issues several hours after delivery HPI 32wk ob Details: CANDI MOYA is a 34 year old who presents for routine OB visit. OB Visit ANDREA Calculator Estimated Delivery Date Method Current WG Current Estimate 04/27/25 LMP (Certain) 32w 5d Other Estimates 04/27/25 Ultrasound #1 32w 5d Expected Delivery Route/Plan patient counseled regarding risks/benefits of trial of labor versus repeat . ACOG/uptodate education given to patient. [] % likelihood of success per calculator TOLAC consent form signed: [] Labor Preferences- CB/BF classes: no labor support person: Octavio labor intervention preferences: [] pain management options preferred: limited cut cord/dad catch: no : you PP control planned: discussed discussed possible routes of delivery and associated risks: [] special requests: [] patient counseled regarding risks/benefits of trial of labor versus repeat . ACOG/uptodate education given to patient. [] % likelihood of success per calculator TOLAC consent form signed: [] Specific Issue/Plans Covid status: [] Flu vaccine: [] Tdap vaccine: declines Rhogam: na LARC form signed: yes Problem list reviewed and updated with the most current plan of care details and appropriate orders placed. Relevant counseling for the gestational age provided. Continue routine care and follow up unless otherwise noted in visit notes/problem list details Initial Weight: 207 lb Date -???-???-???-???-???-??? -???-???-???-???- (more content not included)... Normal [facility] - Chemistry and C hemistry - challengeOrdered By: Chinyere Covarrubias on 02-23-2025 Glucose Ql (U) Negative [facility] - UrinalysisOrder ed By: Chinyere Covarrubias on 02-23-2025 Protein Ql (U) Negative [facility] Rn Care Manager Office Visit Reporton 02-23-2025 Rn Care Manager Office Visit Report [facility] [address], [address] [place] [address] OFFICE VISIT Date of Service: 02/23/25 MR#: [id number] Acct: [id number] Name: CANDI MOYA Rep #: [id number] : 1990 Provider: POPEYE ham Age/Sex: 34/F Location: [facility] [place] Status: Signed Intake Vital Signs 12/19/24 10:52 02/06/25 09:59 02/23/25 14:20 Height 5 ft 4 in 5 ft 4 in 5 ft 4 in Weight: 209 lb 1 oz BMI 35.9 BP 101/69 Intake Visit Reasons: 30wk ob Valve Maker Required: No Is patient in pain?: No Allergies No Known Allergies Allergy (Verified 02/23/25 14:21) Medications ???Medication ???Instructions ???Recorded ???Confirmed ???Type PNV 153-FA 400 mcg-om3 35 mg-dha 1 tab PO DAILY 09/05/24 02/23/25 History 25 mg-epa 5 mg-fish oil chew tablet magnesium 250 mg tablet 250 mg PO QDAY 09/05/24 02/23/25 H istory Held on 02/06/25. Instructions: per pt Last Menstrual Period: 07/21/24 Zika: Zika virus screening: Negative : No Have you fallen in the past year?: No PFSH PFSH Medical History Vaginal after Blood clotting disorder Encounter to determine viability of History of abnormal cervical Pap smear Pre-conception counseling Surgical History S/P Family History Grandmother Ovarian cancer CVA (cerebral vascular accident) Diabetes Grandfather CVA (cerebral vascular accident) Factor V Leiden Maternal Grandmother Diabetes Social History adopted: No household members: spouse and children housing: house number of children: 2 current occupational status: unemployed current occupation: [employer] current occupational exposures/hazards: No pets and animals: No history of recent travel: No sexually active: Yes Smoking Status: Never smoker alcohol intake: never substance use type: does not use well-balanced diet: daily or most days caffeine: Yes Type: carbonated beverages Number of servings: 1 eating out: rarely or never during the past year weight has: increased > 10 lbs what type of physical activity do you participate in: none 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 Date Name GA/Weeks Outcome Route Bth Weight Gen Labor Lgth Anesthesia Del Locatn Provider FOB 02/04/21 Edmun 39 live - full term 7lb 14oz Male epidural ashla nd Hay 08/21/23 Flaco 39 live - full term 9#11oz Male none [facility] Hay Delivery Date: 02/04/21 Last Updated by: Priscilla Gandara, DO was an induction for LGA, cervix was swelling shut therefore csection was done Delivery Date: 08/21/23 Last Updated by: Laura Rowell Baby transported due to breathing issues several hours after delivery HPI 30wk ob Details: CANDI MOYA is a 34 year old who presents for routine OB visit. OB Visit ANDREA Calculator Estimated Delivery Date Method Current WG Current Estimate 04/27/25 LMP (Certain) 31w 0d Other Estimates 04/27/25 Ultrasound #1 31w 0d Expected Delivery Route/Plan patient counseled regarding risks/benefits of trial of labor versus repeat . ACOG/uptodate education given to patient. [] % likelihood of success per calculator TOLAC consent form signed: [] Labor Preferences- CB/BF classes: no labor support person: Octavio labor intervention preferences: [] pain management options preferred: limited cut cord/dad catch: no : you PP control planned: discussed discussed possible routes of delivery and associated risks: [] special requests: [] patient counseled regarding risks/benefits of trial of labor versus repeat . ACOG/uptodate education given to patient. [] % likelihood of success per calculator TOLAC consent form signed: [] Specific Issue/Plans Covid status: [] Flu vaccine: [] Tdap vaccine: declines Rhogam: na LARC form signed: yes Problem list reviewed and updated with the most current plan of care details and appropriate orders placed. Relevant counseling for the gestational age provided. Continue routine care and follow up unless otherwise noted in visit notes/problem list details Initial Weight: 207 lb Date -???-???-???-???-???-??? -???-???-???-???-???-??? - E (more content not included)... Normal [facility] Absolute lymphocyte countOrd ered By: Renetta Hillmantings on 02-06-2025 Lymphocytes Auto (Unsp spec) [#/Vol] 2.01 10*3/uL 0.83-4.51 [facility] Absolute neutrophil countOrd ered By: Renettabon Hinojosa on 02-06-2025 Neutrophils (Bld) [#/Vol] 8.1 10*3/uL High 2.0-7.7 [facility] Automated lymphocyte count a s percentage of total leukocytesOrdered By: Renetta Hinojosa on 02-06-2025 Lymphocytes/100 WBC Auto (Unsp spec) 18.1 % Low 19-41 [facility] Basophil percentageOrdered B y: Renetta Micaela on 02-06-2025 Basophils/100 WBC (Bld) 0.4 % 0-1 [facility] CBC W/Diff, Automatedon 08 Absolute Lymph 2.01 X10 3/uL Normal 0.83-4.51 [facility] Comment on above: Performed By: #### L 100.0100, L501.0250, L509.8002, L3890.6006 ####[facility] [address] [place], [place], [address] Absolute Neut 8.1 X10 3/uL High 2.0-7.7 [facility] Comment on above: Performed By: #### L 100.0100, L501.0250, L509.8002, L3890.6006 ####[facility] [address] [place], [address] Basophils/100 WBC (Bld) 0.4 % Normal 0-1 [facility] Comment on above: Performed By: #### L 100.0100, L501.0250, L509.8002, L3890.6006 ####[facility] [address] [place], [address] Eosinophils/100 WBC (Bld) 1.8 % Normal 0-5 [facility] Comment on above: Performed By: #### L 100.0100, L501.0250, L509.8002, L3890.6006 ####[facility] [address] [place], [address] Erythrocyte distribution width (RBC) [Ratio] 13.1 % Normal 11.6-14.6 [facility] Comment on above: Performed By: #### L 100.0100, L501.0250, L509.8002, L3890.6006 ####[facility] [address] [place], [address] Hematocrit (Bld) [Volume fraction] 32.2 % Low 37-47 [facility] Comment on above: Performed By: #### L 100.0100, L501.0250, L509.8002, L3890.6006 ####[facility] [address] [place], [address] Hemoglobin (Bld) [Mass/Vol] 10.6 g/dL Low 12.0-15.0 [facility] Comment on above: Performed By: #### L 100.0100, L501.0250, L509.8002, L3890.6006 ####[facility] [address] [place], [address] IG% 0.900 Normal 0.0-0.9 [facility] Comment on above: Result Comment: IG% - Immature Granulocytes (promyelocytes, myelocytes and metamyelocytes) > 1% indicates that a LEFT SHIFT is Present. Performed By: #### L 100.0100, L501.0250, L509.8002, L3890.6006 ####[facility] [address] [place], [address] Lymphocytes/100 WBC (Bld) 18.1 % Low 19-41 [facility] Comment on above: Performed By: #### L 100.0100, L501.0250, L509.8002, L3890.6006 ####[facility] [address] [place], [address] MCH (RBC) [Entitic mass] 29.5 pg Normal 27.0-32.0 [facility] Comment on above: Performed By: #### L 100.0100, L501.0250, L509.8002, L3890.6006 ####[facility] [address] [place], [address] MCHC (RBC) [Mass/Vol] 32.9 g/dL Normal 32-36 [facility] Comment on above: Performed By: #### L 100.0100, L501.0250, L509.8002, L3890.6006 ####[facility] [address] [place], [address] MCV (RBC) [Entitic vol] 89.7 fL Normal 81-99 [facility] Comment on above: Performed By: #### L 100.0100, L501.0250, L509.8002, L3890.6006 ####[facility] [address] [place], [address] Monocytes/100 WBC (Bld) 5.4 % Normal 0-10 [facility] Comment on above: Performed By: #### L 100.0100, L501.0250, L509.8002, L3890.6006 ####[facility] [address] [place], [address] Neutrophils/100 WBC (Bld) 73.4 % High 47-70 [facility] Comment on above: Performed By: #### L 100.0100, L501.0250, L509.8002, L3890.6006 ####[facility] [address] [place], [address] Nucleated RBC (Bld) [#/Vol] 0 10*3/uL Normal 0-5 [facility] Comment on above: Performed By: #### L 100.0100, L501.0250, L509.8002, L3890.6006 ####[facility] [address] [place], [address] Platelet mean volume (Bld) [Entitic vol] 10.5 fL Normal 6.2-12.0 [facility] Comment on above: Performed By: #### L 100.0100, L501.0250, L509.8002, L3890.6006 ####[facility] [address] [place], [address] Platelets (Bld) [#/Vol] 268 10*3/uL Normal 150-450 [facility] Comment on above: Performed By: #### L 100.0100, L501.0250, L509.8002, L3890.6006 ####[facility] [address] [place], [address] RBC (Bld) [#/Vol] 3.59 10*6/uL Low 4.2-5.4 [facility] Comment on above: Performed By: #### L 100.0100, L501.0250, L509.8002, L3890.6006 ####[facility] [address] [place], [address] RDW SD 42.8 fl Normal 35.1-43.9 [facility] Comment on above: Performed By: #### L 100.0100, L501.0250, L509.8002, L3890.6006 ####[facility] [address] [place], [address] WBC (Bld) [#/Vol] 11.1 10*3/uL High 4.4-11.0 [facility] Comment on above: Performed By: #### L 100.0100, L501.0250, L509.8002, L3890.6006 ####[facility] [address] [place], [address] Eosinophil percentageOrdered By: Renetta Hinojosa on 02-06-2025 Eosinophils/100 WBC (Bld) 1.8 % 0-5 [facility] Erythrocyte distribution wid th ratioOrdered By: Renetta Hinojosa on 02-06-2025 Erythrocyte distribution width (RBC) [Ratio] 13.1 % 11.6-14.6 [facility] Erythrocyte distribution wid th standard deviationOrdered By: Renettabon Hinojosa on 02-06-2025 Erythrocyte distribution width (RBC) [Ratio] 42.8 fl 35.1-43.9 [facility] Glucose Challenge Gest 1H 50 noreen 02-06-2025 GLU GEST 50g 1H 121 mg/dL Normal 70-140 [facility] Comment on above: Performed By: #### L 100.0100, L501.0250, L509.8002, L3890.6006 ####[facility] [address] [place], [address] Glucose measurement at 2 leta rs post-dose gestational glucose tolerance testOrdered By: Renetta Hinojosa on 02-06-2025 Glucose [Mass/Vol] 121 mg/dL 70-140 [facility] HIVon 02-06-2025 HIV Non-Reactive Normal Nonreactive [facility] Comment on above: Result Comment: Non- Reactive Reactive Repeatedly reactive samples must be confirmed according to CDC recommended confirmatory algorithms. The subresults for either HIVAG or AHIV can be used as an aid in the selection of the confirmation algorithm for reactive samples. Send out specimens with Reactive results to [facility] for confirmation. Order the HIV antibody detection and differentiation: lc#[id number] Performed By: #### L 100.0100, L501.0250, L509.8002, L3890.6006 ####[facility] [address] [place], [place], [address] Hematocrit Auto (Bld) [Volum e fraction]Ordered By: Renetta Hinojosa on 02-06-2025 Hematocrit (Bld) [Volume fraction] 32.2 % Low 37-47 [facility] Hemoglobin measurementOrdere d By: Renetta Hinojosa on 02-06-2025 Hemoglobin (Bld) [Mass/Vol] 10.6 g/dL Low 12.0-15.0 [facility] Immature granulocytes/100 WB C Auto (Bld)Ordered By: Renetta Hinojosa on 02-06-2025 Immature granulocytes/100 WBC (Bld) 0.900 % 0.0-0.9 [facility] Comment on above: IG% - Immature Granu locytes (promyelocytes, myelocytes and metamyelocytes) > 1% indicates that a LEFT SHIFT is Present. Laboratory - Chemistry and C hemistry - challengeOrdered By: Renetta Hinojosa on 02-06-2025 Glucose Ql (U) Negative [facility] Laboratory - UrinalysisOrder ed By: Renetta Hinojosa on 02-06-2025 Protein Ql (U) Negative [facility] MCV (mean corpuscular volume ) determinationOrdered By: Renetta Hinojosa on 02-06-2025 MCV (RBC) [Entitic vol] 89.7 fL 81-99 [facility] Mean corpuscular hemoglobin (MCH) determinationOrdered By: Renetta Hinjoosa on 02-06-2025 MCH (RBC) [Entitic mass] 29.5 pg 27.0-32.0 [facility] Mean corpuscular hemoglobin concentration (MCHC) determinationOrdered By: Renetta Hinojosa on 02-06-2025 MCHC (RBC) [Mass/Vol] 32.9 g/dL 32-36 [facility] Mean platelet volume determi nationOrdered By: Renetta Hinojosa on 02-06-2025 Platelet mean volume (Bld) [Entitic vol] 10.5 fL 6.2-12.0 [facility] Monocyte percentageOrdered B y: Renetta Hinojosa on 02-06-2025 Monocytes/100 WBC (Bld) 5.4 % 0-10 [facility] Neutrophil percentageOrdered By: Renetta Burrs on 02-06-2025 Neutrophils/100 WBC (Bld) 73.4 % High 47-70 [facility] No Panel InformationOrdered By: Renetta Hillmantings on 02-06-2025 HIV (1&2) Antibody Non-Reactive Nonreactive [facility] Comment on above: Non-ReactiveReactive Repeatedly reactive samples must be confirmed according to CDC recommended confirmatory algorithms. The subresults for either HIVAG or AHIV can be used as an aid in the selection of the confirmation algorithm for reactive samples.Send out specimens with Reactive results to [facility] for confirmation.Order the HIV antibody detection and differentiation: #[id number] Nucleated red blood cell per centageOrdered By: Renetta Hillmantings on 02-06-2025 Nucleated RBC/100 WBC (Bld) [Ratio] 0 % 0-5 [facility] OB Biophysical Prof W/O NSTo n 02-06-2025 OB Biophysical Prof W/O NST [facility] [address] [place] [address] OB Biophysical Prof W/O NST MR#: [id number] Acct: [id number] Name: CANDI MOYA Rep #: [id number] : 1990 F 34 From: aDvid navarro MD PCP: Care Physician,No Primary Status: REG CLI Study: OB Biophysical Prof W/O NST Date of Exam: 11/26 Exam# [id number] Ordering Dr: Priscilla Gandara DO PROCEDURE: OB BIOPHYSICAL PROF W/O NST 02/06/2025 REASON FOR EXAM: IRREGULAR HEARTRATE TECHNIQUE: OB BIOPHYSICAL PROF W/O NST COMPARISON: None FINDINGS Number: 1 Position: Breech Placental Position: Posterior and fundal in location. Placental Abnormalities: No evidence of previa. Baseline: 28 weeks and 4 days ESTIMATED DATE OF DELIVERY: Baseline: April 27, 2025 BIOPHYSICAL ASSESSMENT: Amniotic Fluid Volume: 4.8 cm Amniotic Fluid Index: 15.6 (8-24 cm normal range) Cardiac Motion: 136 beats per minute (average) Trunk and Limb Motion: Present. Biophysical profile: Breathing movements: 2 Gross body movements: 2 tone: 2 Amniotic fluid volume: 2 Total score: 8/8 US/OB Biophysical Prof W/O NST IMPRESSION: Normal biophysical profile score. Reading Location: [id number] CC: Dr. Priscilla Gandara DO; No Primary Care Physician Certified Welding Inspector: Signed Normal [facility] OB Triage Physician Noteon 0 02-06-[address] [facility] Medical Records Department [address] [place] [address] OB Triage Physician Note 02/06/252019 MR#: [id number] Acct: [id number] Name: CANDI MOYA Rep #: [id number] : 1990 34 From: Priscilla Gandara DO PCP: Care Physician,No Primary Status:DEP CLI Y Location: [facility] HPI - General HPI Narrative CANDI MOYA, is a 34 y/o @ 28 weeks 6days who presents to [facility] from office. She was sent down by Renetta Hinojosa for tachycardia and possible arrhythmia. a BPP and prolonged monitoring was ordered Maternal Data Information ANDREA Calculator Estimated Delivery Date Method Current WG Current Estimate 04/27/25 LMP (Certain) 28w 6d Other Estimates 04/27/25 Ultrasound #1 28w 6d PFSH PFSH Medical History Vaginal after Blood clotting disorder Encounter to determine viability of History of abnormal cervical Pap smear Pre-conception counseling Home Medications ???Medication ???Instructions ???Recorded ???Last Taken ???Type PNV 153-FA 400 mcg-om3 35 mg-dha 1 tab PO DAILY 03/04/25 08/04/25 20:00 History 25 mg-epa 5 mg-fish oil chew tablet 1 TAB magnesium 250 mg tablet 250 mg PO QDAY 09/05/24 Unknown Hi story Held on 02/06/25. Instructions: per pt Allergy/AdvReac Type Severity Reaction Status Date / Time No Known Allergies Allergy Verified 02/06/25 10:43 Family History Grandmother Ovarian cancer CVA (cerebral vascular accident) Diabetes Grandfather CVA (cerebral vascular accident) Factor V Leiden Maternal Grandmother Diabetes Surgical History S/P Social History adopted: No household members: spouse and children housing: house number of children: 2 current occupational status: unemployed current occupation: [employer] current occupational exposures/hazards: No pets and animals: No history of recent travel: No sexually active: Yes Smoking Status: Never smoker alcohol intake: never substance use type: does not use well-balanced diet: daily or most days caffeine: Yes Type: carbonated beverages Number of servings: 1 eating out: rarely or never during the past year weight has: increased > 10 lbs what type of physical activity do you participate in: none 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 Date Name GA/Weeks Outcome Route Bth Weight Infant Gen Labor Lgth Anesthesia Del Locatn Provider FOB 02/04/21 Edmun 39 live - full term 7lb 14oz Male epidural [facility] nd [facility] 08/21/23 Flaco 39 live - full term 9#11oz Male none [facility] Delivery Date: 02/04/21 Last Updated by: Priscilla Gandara, DO was an induction for LGA, cervix was swelling shut therefore csection was done Delivery Date: 08/21/23 Last Updated by: Laura Rowell Baby transported due to breathing issues several hours after delivery Visit Details Expected Delivery Route/Plan patient counseled regarding risks/benefits of trial of labor versus repeat . ACOG/uptodate education given to patient. [] % likelihood of success per calculator TOLAC consent form signed: [] Labor Preferences- CB/BF classes: no labor support person: Octavio labor intervention preferences: [] pain management options preferred: limited cut cord/dad catch: no : you PP control planned: discussed discussed possible routes of delivery and associated risks: [] special requests: [] patient counseled regarding risks/benefits of trial of labor versus repeat . ACOG/uptodate education given to patient. [] % likelihood of success per calculator TOLAC consent form signed: [] Plans Covid status: [] Flu vaccine: [] Tdap vaccine: declines Rhogam: na LARC form signed: yes Problem list reviewed and updated with the most current plan of care details and appropriate orders placed. Relevant counseling for the gestational age provided. Continue routine care and follow up unless otherwise noted in visit notes/problem list details OB Flowsheet Initial Weight: 207 lb Date -???-???-???-???-???-??? -???-???-???-???-???-??? - EGA Weight BP Urine Prot -???-???-???-???-???-??? -???-???-???-???-???-??? - Glucose FHR FuHt Pres Dilation -???-???-???-???-???-??? -???- (more content not included)... Normal [facility] Rn Care Manager Office Visit Reporton 02-06-2025 Rn Care Manager Office Visit Report [facility] [address], [address] [place] [address] OFFICE VISIT Date of Service: 02/06/25 MR#: [id number] Acct: [id number] Name: CANDI MOYA Rep #: [id number] : 1990 Provider: MANISHA carbajal Age/Sex: 34/F Location: [facility] Status: Signed Intake Vital Signs 12/19/24 10:52 01/16/25 13:51 02/06/25 09:59 Height 5 ft 4 in 5 ft 4 in 5 ft 4 in Weight: 211 lb 1 oz BMI 36.2 BP 119/69 Intake Visit Reasons: 28wk ob/glucose Chief Complaint: 28 Week OB/Glucose Valve Maker Required: No Is patient in pain?: No Allergies No Known Allergies Allergy (Verified 02/06/25 10:43) Medications ???Medication ???Instructions ???Recorded ???Confirmed ???Type PNV 153-FA 400 mcg-om3 35 mg-dha 1 tab PO DAILY 09/05/24 02/06/25 History 25 mg-epa 5 mg-fish oil chew tablet magnesium 250 mg tablet 250 mg PO QDAY 09/05/24 02/06/25 H istory Held on 02/06/25. Instructions: per pt Last Menstrual Period: 07/21/24 Zika: Zika virus screening: Negative : No PFSH PFSH Medical History Vaginal after Blood clotting disorder Encounter to determine viability of History of abnormal cervical Pap smear Pre-conception counseling Surgical History S/P Family History Grandmother Ovarian cancer CVA (cerebral vascular accident) Diabetes Grandfather CVA (cerebral vascular accident) Factor V Leiden Maternal Grandmother Diabetes Social History adopted: No household members: spouse and children housing: house number of children: 2 current occupational status: unemployed current occupation: [employer] current occupational exposures/hazards: No pets and animals: No history of recent travel: No sexually active: Yes Smoking Status: Never smoker alcohol intake: never substance use type: does not use well-balanced diet: daily or most days caffeine: Yes Type: carbonated beverages Number of servings: 1 eating out: rarely or never during the past year weight has: increased > 10 lbs what type of physical activity do you participate in: none 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 Date Name GA/Weeks Outcome Route Bth Weight Gen Labor Lgth Anesthesia Del Locatn Provider FOB 02/04/21 Edmun 39 live - full term 7lb 14oz Male epidural ashla nd [facility] 08/21/23 Flaco 39 live - full term 9#11oz Male none [facility] Delivery Date: 02/04/21 Last Updated by: Priscilla Gandara, DO was an induction for LGA, cervix was swelling shut therefore csection was done Delivery Date: 08/21/23 Last Updated by: Laura Rowell Baby transported due to breathing issues several hours after delivery HPI 28wk ob/glucose Details: CANDI MOYA is a 34 year old who presents for routine OB visit. OB Visit ANDREA Calculator Estimated Delivery Date Method Current WG Current Estimate 04/27/25 LMP (Certain) 28w 4d Other Estimates 04/27/25 Ultrasound #1 28w 4d Expected Delivery Route/Plan patient counseled regarding risks/benefits of trial of labor versus repeat . ACOG/uptodate education given to patient. [] % likelihood of success per calculator TOLAC consent form signed: [] Labor Preferences- CB/BF classes: no labor support person: Octavio labor intervention preferences: [] pain management options preferred: limited cut cord/dad catch: no : you PP control planned: discussed discussed possible routes of delivery and associated risks: [] special requests: [] patient counseled regarding risks/benefits of trial of labor versus repeat . ACOG/uptodate education given to patient. [] % likelihood of success per calculator TOLAC consent form signed: [] Specific Issue/Plans Covid status: [] Flu vaccine: [] Tdap vaccine: declines Rhogam: na LARC form signed: yes Problem list reviewed and updated with the most current plan of care details and appropriate orders placed. Relevant counseling for the gestational age provided. Continue routine care and follow up unless otherwise noted in visit notes/problem list details Initial Weight: 207 lb Date -???-???-???-???-?? (more content not included)... Normal [facility] Platelet countOrdered By: Franc Hinojosa on 02-06-2025 Platelets (Bld) [#/Vol] 268 10*3/uL 150-450 [facility] RBC Auto (Bld) [#/Vol]Ordere d By: Renetta Hinojosa on 02-06-2025 RBC (Bld) [#/Vol] 3.59 10*6/uL Low 4.2-5.4 [facility] Syphilis Antibodieson 2024 Syphilis Abs Non-Reactive Normal Nonreactive [facility] Comment on above: Performed By: #### L 100.0100, L501.0250, L509.8002, L3890.6006 ####[facility] [address] [place], [address] White blood cell (WBC) count Ordered By: Renetta Hinojosa on 02-06-2025 WBC (Bld) [#/Vol] 11.1 10*3/uL High 4.4-11.0 [facility] Laboratory - Chemistry and C hemistry - challengeOrdered By: Renetta Hinojosa on 01-16-2025 Glucose Ql (U) Negative [facility] Laboratory - UrinalysisOrder ed By: Renetta Hinojosa on 01-16-2025 Protein Ql (U) Negative [facility] Rn Care Manager Office Visit Reporton 01-16-2025 Rn Care Manager Office Visit Report [facility] [address], [address] [place] [address] OFFICE VISIT Date of Service: 01/16/25 MR#: [id number] Acct: [id number] Name: CANDI MOYA Rep #: [id number] : 1990 Provider: MANISHA carbajal Age/Sex: 34/F Location[place] [facility] Status: Signed Intake Vital Signs 11/22/24 15:00 12/19/24 10:52 01/16/25 13:43 01/16/25 13:51 Height 5 ft 4 in 5 ft 4 in 5 ft 4 in 5 ft 4 in Weight: 209 lb 8 oz BMI 35.9 BP 98/60 Intake Visit Reasons: 25 wk ob Chief Complaint: 25 Week OB Valve Maker Required: No Is patient in pain?: No Allergies No Known Allergies Allergy (Verified 01/16/25 13:42) Medications ???Medication ???Instructions ???Recorded ???Confirmed ???Type PNV 153-FA 400 mcg-om3 35 mg-dha tab PO DAILY 09/05/24 01/16/25 His tory 25 mg-epa 5 mg-fish oil chew tablet magnesium 250 mg tablet 250 mg PO QDAY 09/05/24 01/16/25 H istory ondansetron 4 mg disintegrating 4 mg PO Q6H PRN nausea and 5 01/16/25 Rx tablet vomiting #20 tabs pyridoxine (vitamin B6) 100 mg 100 mg PO QDAY 09/22/24 01/16/25 H istory tablet Last Menstrual Period: 07/21/24 Zika: Zika virus screening: Negative : No PFSH PFSH Medical History Vaginal after Blood clotting disorder Encounter to determine viability of History of abnormal cervical Pap smear Pre-conception counseling Surgical History S/P Family History Grandmother Ovarian cancer CVA (cerebral vascular accident) Diabetes Grandfather CVA (cerebral vascular accident) Factor V Leiden Maternal Grandmother Diabetes Social History adopted: No household members: spouse and children housing: house number of children: 2 current occupational status: unemployed current occupation: [employer] current occupational exposures/hazards: No pets and animals: No history of recent travel: No sexually active: Yes Smoking Status: Never smoker alcohol intake: never substance use type: does not use well-balanced diet: daily or most days caffeine: Yes Type: carbonated beverages Number of servings: 1 eating out: rarely or never during the past year weight has: increased > 10 lbs what type of physical activity do you participate in: none 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 Date Name GA/Weeks Outcome Route Bth Weight Gen Labor Lgth Anesthesia Del Locatn Provider FOB 02/04/21 Edmun 39 live - full term 7lb 14oz Male epidural ashla nd Hay 08/21/23 Flaco 39 live - full term 9#11oz Male none [facility] Delivery Date: 02/04/21 Last Updated by: Priscilla Gandara, DO was an induction for LGA, cervix was swelling shut therefore csection was done Delivery Date: 08/21/23 Last Updated by: Laura Rowell Baby transported due to breathing issues several hours after delivery HPI 25 wk ob Details: CANDI MOYA is a 34 year old who presents for routine OB visit. OB Visit ANDREA Calculator Estimated Delivery Date Method Current WG Current Estimate 04/27/25 LMP (Certain) 25w 4d Other Estimates 04/27/25 Ultrasound #1 25w 4d Expected Delivery Route/Plan patient counseled regarding risks/benefits of trial of labor versus repeat . ACOG/uptodate education given to patient. [] % likelihood of success per calculator TOLAC consent form signed: [] Labor Preferences- CB/BF classes: no labor support person: Octavio labor intervention preferences: [] pain management options preferred: limited cut cord/dad catch: no : you PP control planned: discussed discussed possible routes of delivery and associated risks: [] special requests: [] patient counseled regarding risks/benefits of trial of labor versus repeat . ACOG/uptodate education given to patient. [] % likelihood of success per calculator TOLAC consent form signed: [] Specific Issue/Plans Covid status: [] Flu vaccine: [] Tdap vaccine: [] Rhogam: na LARC form signed: yes Problem list reviewed and updated with the most current plan of care details and appropriate orders placed. Relevant counseling for the gestational age provided. Continue routine prenat (more content not included)... Normal [facility] OB Limited (No Biometrics)on 12-26-2024 OB Limited (No Biometrics) [facility] [address] [place], [place] [id number] OB Limited (No Biometrics) MR#: [id number] Acct: [id number] Name: CANDI MOYA Rep #: [id number] : 1990 F 34 From: David navarro MD PCP: Care Physician,No Primary Status: REG CLI Study: OB Limited (No Biometrics) Date of Exam: 12/26 Exam# [id number] Ordering Dr: Renetta Hinojosa NP LOCATOR -C PROCEDURE: OB LIMITED (NO BIOMETRICS) 12/26/2024 REASON FOR EXAM: SPINE VIEWS TECHNIQUE: OB LIMITED (NO BIOMETRICS) COMPARISON: Prior study dated December 08, 2024. FINDINGS Number: 1 Position: Vertex Placental Position: Fundal and posterior. Placental Abnormalities: No evidence of previa. Cardiac Motion: 152 beats per minute. (Average) Trunk and Limb Motion: Present. Imaging of the spine was obtained. No abnormality is seen. US/OB Limited (No Biometrics) IMPRESSION: Normal visualized spine. Reading Location: [id number] CC: LOCATOR-C Renetta Hinojosa; No Primary Care Physician Certified Welding Inspector: Signed Normal [facility] Rn Care Manager Office Visit Reporton 12-19-2024 Rn Care Manager Office Visit Report [facility] [address], [address] [place] [address] OFFICE VISIT Date of Service: 12/19/24 MR#: [id number] Acct: [id number] Name: CANDI MOYA Rep #: [id number] : 1990 Provider: Dr. Roro cui MD Age/Sex: 34/F [place] [facility] Status: Signed Intake Vital Signs 09/22/24 14:25 11/22/24 15:00 12/19/24 10:52 12/19/24 10:52 Height 5 ft 4 in 5 ft 4 in 5 ft 4 in 5 ft 4 in Weight: 207 lb 8 oz 207 lb 8 oz BMI 35.6 35.6 BP 113/75 104/70 Intake Visit Reasons: 21wk ob Valve Maker Required: No Is patient in pain?: No Allergies No Known Allergies Allergy (Verified 12/19/24 10:52) Medications ???Medication ???Instructions ???Recorded ???Confirmed ???Type PNV 153-FA 400 mcg-om3 35 mg-dha tab PO DAILY 09/05/24 12/19/24 His tory 25 mg-epa 5 mg-fish oil chew tablet magnesium 250 mg tablet 250 mg PO QDAY 09/05/24 12/19/24 H istory ondansetron 4 mg disintegrating 4 mg PO Q6H PRN nausea and 5 12/19/24 Rx tablet vomiting #20 tabs pyridoxine (vitamin B6) 100 mg 100 mg PO QDAY 09/22/24 12/19/24 H istory tablet Last Menstrual Period: 07/21/24 Zika: Zika virus screening: Negative : No PFSH PFSH Medical History Vaginal after Blood clotting disorder Encounter to determine viability of History of abnormal cervical Pap smear Pre-conception counseling Surgical History S/P Family History Grandmother Ovarian cancer CVA (cerebral vascular accident) Diabetes Grandfather CVA (cerebral vascular accident) Factor V Leiden Maternal Grandmother Diabetes Social History adopted: No household members: spouse and children housing: house number of children: 2 current occupational status: unemployed current occupation: [employer] current occupational exposures/hazards: No pets and animals: No history of recent travel: No sexually active: Yes Smoking Status: Never smoker alcohol intake: never substance use type: does not use well-balanced diet: daily or most days caffeine: Yes Type: carbonated beverages Number of servings: 1 eating out: rarely or never during the past year weight has: increased > 10 lbs what type of physical activity do you participate in: none 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 Date Name GA/Weeks Outcome Route Bth Weight Gen Labor Lgth Anesthesia Del Locatn Provider FOB 02/04/21 Edmun 39 live - full term 7lb 14oz Male epidural ashla nd Hay 08/21/23 Flaco 39 live - full term 9#11oz Male none [facility] KRISTAL Hay Delivery Date: 02/04/21 Last Updated by: Priscilla Gandara, DO was an induction for LGA, cervix was swelling shut therefore csection was done Delivery Date: 08/21/23 Last Updated by: Laura Rowell Baby transported due to breathing issues several hours after delivery HPI 21wk ob Details: CANDI MOYA is a 34 year old who presents for routine OB visit. OB Visit ANDREA Calculator Estimated Delivery Date Method Current WG Current Estimate 04/27/25 LMP (Certain) 21w 4d Other Estimates 04/27/25 Ultrasound #1 21w 4d Expected Delivery Route/Plan patient counseled regarding risks/benefits of trial of labor versus repeat . ACOG/uptodate education given to patient. [] % likelihood of success per calculator TOLAC consent form signed: [] Labor Preferences- CB/BF classes: [] labor support person: [] labor intervention preferences: [] pain management options preferred: [] cut cord/dad catch: [] : [] PP control planned: [] discussed possible routes of delivery and associated risks: [] special requests: [] patient counseled regarding risks/benefits of trial of labor versus repeat . ACOG/uptodate education given to patient. [] % likelihood of success per calculator TOLAC consent form signed: [] Specific Issue/Plans Covid status: [] Flu vaccine: [] Tdap vaccine: [] Rhogam: [] LARC form signed: [] Problem list reviewed and updated with the most current plan of care details and appropriate orders placed. Relevant counseling for the gestational age provided. Continue routine care and follow u (more content not included)... Normal [facility] OB Anatomy Scanon 12-08-[address] [facility] [address] [place] [address] OB Anatomy Scan MR#: [id number] Acct: [id number] Name: CANDI MOYA Rep #: [id number] : 1990 F 34 From: David mayers MD PCP: Care Physician,No Primary Status: REG CLI Study: OB Anatomy Scan Date of Exam: 12/08/24 Exam# [id number] Ordering Dr: Roro Troy PROCEDURE: OB ANATOMY SCAN 12/08/2024 REASON FOR EXAM: ANATOMY SCAN TECHNIQUE: High resolution obstetric ultrasound performed using a 2D transducer. Standard views obtained, including biometry, anatomy survey, and Doppler studies. FINDINGS Single viable intrauterine fetus in breech presentation. Placenta is fundal, grade 0. No placenta previa. Ultrasound gestational age is 19 weeks and 6 days. ANDREA 04/28/2025. LMP gestational age is 20 weeks 0 day. ANDREA 04/27/2025. cardiac activity is noted. Heart rate is 155 beats per minute. Cervix is closed and measures 3.6 cm. Normal amniotic fluid. DIMENSIONS: Biparietal Diameter: 4.6 cm/20 weeks 1 day Head Circumference: 17.2 cm/19 weeks 6 days Abdominal Circumference: 15.1 cm/20 weeks 2 days Femur Length: 3.1 cm/19 weeks 5 days ESTIMATED WEIGHT: 332 g plus/-50 g ESTIMATED WEIGHT PERCENTILE (24+ weeks): 50.49 ANATOMY: Cerebellum measures 2 cm. Cm measures 0.55 cm. Cervical spine is unremarkable. Thoracic, lumbar and sacrum spine is not fully visualized due to baby's position, follow-up is recommended. Cranium, chest, cardiac, abdomen and pelvis anatomical structures and extremities are visualized and are unremarkable. US/OB Anatomy Scan IMPRESSION: Single viable intrauterine fetus in breech presentation. Concordant growth. Ultrasound gestational age is 19 weeks and 6 days. ANDREA 04/28/2025. LMP gestational age is 20 weeks 0 day. ANDREA 04/27/2025. Limited visualization of the thoracic, lumbar and sacral spine otherwise normal anatomy. Follow-up is advised. Reading Location: [place] [address] CC: Dr. 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: Signed Normal [facility] - Chemistry and C hemistry - challengeOrdered By: Sindhu Leblanc on 11-22-2024 Glucose Ql (U) Negative [facility] - UrinalysisOrder ed By: Sindhu Leblanc on 11-22-2024 Protein Ql (U) Negative [facility] Rn Care Manager Office Visit Reporton 11-22-2024 Rn Care Manager Office Visit Report [facility] [address], [address] [place] [address] OFFICE VISIT Date of Service: 11/22/24 MR#: [id number] Acct: [id number] Name: CANDI MOYA Rep #: [id number] : 1990 Provider: POPEYE Huber ams Age/Sex: 34/F Location: [facility] [place] Status: Signed Intake Vital Signs 09/22/24 14:25 10/24/24 15:27 11/22/24 15:00 Height 5 ft 4 in 5 ft 4 in 5 ft 4 in Weight: 207 lb 8 oz BMI 35.6 BP 113/75 Intake Visit Reasons: 17wk ob Chief Complaint: 17wk OB Valve Maker Required: No Is patient in pain?: No Allergies No Known Allergies Allergy (Verified 11/22/24 14:54) Medications ???Medication ???Instructions ???Recorded ???Confirmed ???Type PNV 153-FA 400 mcg-om3 35 mg-dha tab PO DAILY 09/05/24 11/22/24 His tory 25 mg-epa 5 mg-fish oil chew tablet magnesium 250 mg tablet 250 mg PO QDAY 09/05/24 11/22/24 H istory ondansetron 4 mg disintegrating 4 mg PO Q6H PRN nausea and 5 11/22/24 Rx tablet vomiting #20 tabs pyridoxine (vitamin B6) 100 mg 100 mg PO QDAY 09/22/24 11/22/24 H istory tablet Last Menstrual Period: 07/21/24 : No PFSH PFSH Medical History Vaginal after Blood clotting disorder Encounter to determine viability of History of abnormal cervical Pap smear Pre-conception counseling Surgical History S/P Family History Grandmother Ovarian cancer CVA (cerebral vascular accident) Diabetes Grandfather CVA (cerebral vascular accident) Factor V Leiden Maternal Grandmother Diabetes Social History adopted: No household members: spouse and children housing: house number of children: 2 current occupational status: unemployed current occupation: [employer] current occupational exposures/hazards: No pets and animals: No history of recent travel: No sexually active: Yes Smoking Status: Never smoker alcohol intake: never substance use type: does not use well-balanced diet: daily or most days caffeine: Yes Type: carbonated beverages Number of servings: 1 eating out: rarely or never during the past year weight has: increased > 10 lbs what type of physical activity do you participate in: none 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 Date Name GA/Weeks Outcome Route Bth Weight Gen Labor Lgth Anesthesia Del Locatn Provider FOB 02/04/21 Edmun 39 live - full term 7lb 14oz Male epidural ashla nd Hay 08/21/23 Flaco 39 live - full term 9#11oz Male none [facility] KRISTAL Hay Delivery Date: 02/04/21 Last Updated by: Priscilla Gandara, DO was an induction for LGA, cervix was swelling shut therefore csection was done Delivery Date: 08/21/23 Last Updated by: Laura Rowell Baby transported due to breathing issues several hours after delivery HPI 17wk ob Details: CANDI MOYA is a 34 year old who presents for routine OB visit. OB Visit ANDREA Calculator Estimated Delivery Date Method Current WG Current Estimate 04/27/25 LMP (Certain) 17w 5d Other Estimates 04/27/25 Ultrasound #1 17w 5d Expected Delivery Route/Plan Labor Preferences- CB/BF classes: [] labor support person: [] labor intervention preferences: [] pain management options preferred: [] cut cord/dad catch: [] : [] PP control planned: [] discussed possible routes of delivery and associated risks: [] special requests: [] patient counseled regarding risks/benefits of trial of labor versus repeat . ACOG/uptodate education given to patient. [] % likelihood of success per calculator TOLAC consent form signed: [] Specific Issue/Plans Covid status: [] Flu vaccine: [] Tdap vaccine: [] Rhogam: [] LARC form signed: [] Problem list reviewed and updated with the most current plan of care details and appropriate orders placed. Relevant counseling for the gestational age provided. Continue routine care and follow up unless otherwise noted in visit notes/problem list details Initial Weight: 207 lb Date -???-???-???-???-???-??? -???-???-???-???-???-??? - EGA Weight BP Urine Prot -???-???-???-???-???-??? -???-???-???-???-???-??? - Glucose FHR FuHt Pres Dilation -???-???-???-???-???-??? -???-???-???-?? (more content not included)... Normal [facility] - Chemistry and C hemistry - challengeOrdered By: Roro Troy on 10-24-2024 Glucose Ql (U) Negative [facility] - UrinalysisOrder ed By: Roro Troy on 10-24-2024 Protein Ql (U) Negative [facility] Rn Care Manager Office Visit Reporton 10-24-2024 Rn Care Manager Office Visit Report [facility] [address], [address] [place] [address] OFFICE VISIT Date of Service: 10/24/24 MR#: [id number] Acct: [id number] Name: CANDI MOYA Rep #: [id number] : 1990 Provider: Dr. Roro cui MD Age/Sex: 34/F Location: [facility] [place] Status: Signed Intake Vital Signs 10/08/23 11:41 09/22/24 14:25 10/24/24 15:27 Height 5 ft 4 in 5 ft 4 in 5 ft 4 in Weight: 206 lb 4 oz BMI 35.4 BP 110/76 Intake Visit Reasons: 13wk OB Valve Maker Required: No Is patient in pain?: No Allergies No Known Allergies Allergy (Verified 10/24/24 15:28) Medications ???Medication ???Instructions ???Recorded ???Confirmed ???Type PNV 153-FA 400 mcg-om3 35 mg-dha tab PO DAILY 09/05/24 10/24/24 His tory 25 mg-epa 5 mg-fish oil chew tablet magnesium 250 mg tablet 250 mg PO QDAY 09/05/24 10/24/24 H istory ondansetron 4 mg disintegrating 4 mg PO Q6H PRN nausea and 5 10/24/24 Rx tablet vomiting #20 tabs pyridoxine (vitamin B6) 100 mg 100 mg PO QDAY 09/22/24 10/24/24 H istory tablet Last Menstrual Period: 07/21/24 Zika: Zika virus screening: Negative : No PFSH PFSH Medical History Vaginal after Blood clotting disorder Encounter to determine viability of History of abnormal cervical Pap smear Pre-conception counseling Surgical History S/P Family History Grandmother Ovarian cancer CVA (cerebral vascular accident) Diabetes Grandfather CVA (cerebral vascular accident) Factor V Leiden Maternal Grandmother Diabetes Social History adopted: No household members: spouse and children housing: house number of children: 2 current occupational status: unemployed current occupation: [employer] current occupational exposures/hazards: No pets and animals: No history of recent travel: No sexually active: Yes Smoking Status: Never smoker alcohol intake: never substance use type: does not use well-balanced diet: daily or most days caffeine: Yes Type: carbonated beverages Number of servings: 1 eating out: rarely or never during the past year weight has: increased > 10 lbs what type of physical activity do you participate in: none 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 Date Name GA/Weeks Outcome Route Bth Weight Infant Gen Labor Lgth Anesthesia Del Locatn Provider FOB 02/04/21 Edmun 39 live - full term 7lb 14oz Male epidural ashla nd Hay 08/21/23 Flaco 39 live - full term 9#11oz Male none [facility] KRISTAL Hay Delivery Date: 02/04/21 Last Updated by: Priscilla Gandara, DO was an induction for LGA, cervix was swelling shut therefore csection was done Delivery Date: 08/21/23 Last Updated by: Laura Rowell Baby transported due to breathing issues several hours after delivery HPI 13wk OB Details: CANDI MOYA is a 34 year old who presents for routine OB visit. OB Visit ANDREA Calculator Estimated Delivery Date Method Current WG Current Estimate 04/27/25 LMP (Certain) 13w 4d Other Estimates 04/27/25 Ultrasound #1 13w 4d Expected Delivery Route/Plan Labor Preferences- CB/BF classes: [] labor support person: [] labor intervention preferences: [] pain management options preferred: [] cut cord/dad catch: [] : [] PP control planned: [] discussed possible routes of delivery and associated risks: [] special requests: [] patient counseled regarding risks/benefits of trial of labor versus repeat . ACOG/uptodate education given to patient. [] % likelihood of success per calculator TOLAC consent form signed: [] Specific Issue/Plans Covid status: [] Flu vaccine: [] Tdap vaccine: [] Rhogam: [] LARC form signed: [] Problem list reviewed and updated with the most current plan of care details and appropriate orders placed. Relevant counseling for the gestational age provided. Continue routine care and follow up unless otherwise noted in visit notes/problem list details Initial Weight: 207 lb Date -???-???-???-???-???-??? -???-???-???-???-???-??? - EGA Weight BP Urine Prot -???-???-???-???-???-??? -???-???-???-???-???-??? - Glucose FHR FuHt Pres Dilation -???-?? (more content not included)... Normal [facility] Chlamydia/GC PEMA aptimaon CHLAMY,NUC ACID Negative Normal Negative [facility] Comment on above: Performed By: #### M 100.2200, L7000.1800 ####[facility] [address] [place], [place], [id number] GC BY NUC ACID Negative Normal Negative [facility] Comment on above: Result Comment: Perf ormed at: =G - [facility] [id number] Activities Aide: Josefina Gómez MD, Phone: [phone] Performed By: #### M 100.2200, L7000.1800 ####[facility] [address] [place], [place], [id number] Urine Cultureon 09-24-2024 URC Below infection leve l. Mixed Gram Positive Organisms [place] Count 1000-10,000 MIXC Mixed contaminants. Submit a new specimen if indicated. Normal [facility] Comment on above: Performed By: #### M 100.2200, L7000.1800 ####[facility] [address] [place], [place], [id number] Absolute lymphocyte countOrd ered By: Sindhu Leblanc on 09-22-2024 Lymphocytes Auto (Unsp spec) [#/Vol] 2.44 10*3/uL 0.83-4.51 [facility] Absolute neutrophil countOrd ered By: Sindhu Leblanc on 09-22-2024 Neutrophils (Bld) [#/Vol] 7.8 10*3/uL High 2.0-7.7 [facility] Automated blood erythrocyte countOrdered By: Sindhu Leblanc on 09-22-2024 RBC (Bld) [#/Vol] 4.58 10*6/uL Normal 4.2-5.4 [facility] Comment on above: Performed By: #### L 3890.6102, L3890.6301, L509.8002, L501.9985, L3890.6006, L100.0100, L509.4006, BTS #### [facility] [address] [place], [place], [id number] Automated blood hematocrit ( percentage)Ordered By: Sindhu Leblanc on 09-22-2024 Hematocrit (Bld) [Volume fraction] 40.7 % Normal 37-47 [facility] Comment on above: Performed By: #### L 3890.6102, L3890.6301, L509.8002, L501.9985, L3890.6006, L100.0100, L509.4006, BTS #### [facility] [address] [place], [place], [id number] Automated lymphocyte count a s percentage of total leukocytesOrdered By: Sindhu Leblanc on 09-22-2024 Lymphocytes/100 WBC (Bld) 21.8 % Normal 19-41 [facility] Comment on above: Performed By: #### L 3890.6102, L3890.6301, L509.8002, L501.9985, L3890.6006, L100.0100, L509.4006, BTS #### [facility] [address] [place], [address] Lymphocytes/100 WBC Auto (Unsp spec) 21.8 % 19-41 [facility] Basophil percentageOrdered B y: Sindhu Leblanc on 09-22-2024 Basophils/100 WBC (Bld) 0.5 % Normal 0-1 [facility] Comment on above: Performed By: #### L 3890.6102, L3890.6301, L509.8002, L501.9985, L3890.6006, L100.0100, L509.4006, BTS #### [facility] [address] [place], [address] C. trachomatis rRNA PEMA+prob e Ql (Unsp spec)Ordered By: Sindhu Leblanc on 09-22-2024 Chlamydia DNA (PEMA) Negative Negative [facility] CBC W/Diff, Automatedon - Absolute Lymph 2.44 X10 3/uL Normal 0.83-4.51 [facility] Comment on above: Performed By: #### L 3890.6102, L3890.6301, L509.8002, L501.9985, L3890.6006, L100.0100, L509.4006, BTS #### [facility] [address] [place], [address] Absolute Neut 7.8 X10 3/uL High 2.0-7.7 [facility] Comment on above: Performed By: #### L 3890.6102, L3890.6301, L509.8002, L501.9985, L3890.6006, L100.0100, L509.4006, BTS #### [facility] [address] [place], [address] IG% 0.400 Normal 0.0-0.9 [facility] Comment on above: Result Comment: IG% - Immature Granulocytes (promyelocytes, myelocytes and metamyelocytes) > 1% indicates that a LEFT SHIFT is Present. Performed By: #### L 3890.6102, L3890.6301, L509.8002, L501.9985, L3890.6006, L100.0100, L509.4006, BTS #### [facility] [address] [place], [place], [id number] Nucleated RBC (Bld) [#/Vol] 0 10*3/uL Normal 0-5 [facility] Comment on above: Performed By: #### L 3890.6102, L3890.6301, L509.8002, L501.9985, L3890.6006, L100.0100, L509.4006, BTS #### [facility] [address] [place], [address] RDW SD 40.9 fl Normal 35.1-43.9 [facility] Comment on above: Performed By: #### L 3890.6102, L3890.6301, L509.8002, L501.9985, L3890.6006, L100.0100, L509.4006, BTS #### [facility] [address] [place], [address] Chlamydia trachomatis rRNA d etection by probe and target amplification methodOrdered By: Sindhu Leblanc on 09-22-2024 C. trachomatis rRNA PEMA+probe Ql (Unsp spec) Negative Negative [facility] Eosinophil percentageOrdered By: Sindhu Leblanc on 09-22-2024 Eosinophils/100 WBC (Bld) 1.2 % Normal 0-5 [facility] Comment on above: Performed By: #### L 3890.6102, L3890.6301, L509.8002, L501.9985, L3890.6006, L100.0100, L509.4006, BTS #### [facility] [address] [place], [address] Erythrocyte distribution wid th ratioOrdered By: Sindhu Leblanc on 09-22-2024 Erythrocyte distribution width (RBC) [Ratio] 12.6 % Normal 11.6-14.6 [facility] Comment on above: Performed By: #### L 3890.6102, L3890.6301, L509.8002, L501.9985, L3890.6006, L100.0100, L509.4006, BTS #### [facility] [address] [place], [place], [id number] Erythrocyte distribution wid th standard deviationOrdered By: Sindhu Leblanc on 09-22-2024 Erythrocyte distribution width (RBC) [Entitic vol] 40.9 fL 35.1-43.9 [facility] Erythrocyte distribution width (RBC) [Ratio] 40.9 fl 35.1-43.9 [facility] HBV surface Ag Ql (S)Ordered By: Sindhu Leblanc on 09-22-2024 Hepatitis B Surface Antigen Non-Reactive Nonreactive [facility] Comment on above: Reactive: Presumptiv e evidence of HBV. Repeatedly reactive samples must be confirmed using a neutralization test ([employer]s HBsAg Confirmatory Test)Non-Reactive: HBsAg not detected; does not exclude the possibility of exposure to HBV Hemoglobin A1c percentageOrd ered By: Sindhu Leblanc on 09-22-2024 HbA1c (Bld) [Mass fraction] 5.4 % Low <=5.6 [facility] Comment on above: Performed By: #### L 3890.6102, L3890.6301, L509.8002, L501.9985, L3890.6006, L100.0100, L509.4006, BTS ####[facility] [address] [place], [place], [id number] Hemoglobin measurementOrdere d By: Sindhu Leblanc on 09-22-2024 Hemoglobin (Bld) [Mass/Vol] 14.0 g/dL Normal 12.0-15.0 [facility] Comment on above: Performed By: #### L 3890.6102, L3890.6301, L509.8002, L501.9985, L3890.6006, L100.0100, L509.4006, BTS #### [facility] [address] [place], [address] Hepatitis C antibodyOrdered By: Sindhu Leblanc on 09-22-2024 Hepatitis C Antibody Non-Reactive Nonreactive [facility] Comment on above: Reactive: Presumptiv e evidence of antibodies to HCV. Follow CDC recommendations for supplemental testing.Non-Reactive: Antibodies to HCV were not detected; does not exclude the possibility of exposure to HCVReactive Results are presumptive evidence of antibodies to HCV. Follow CDC recommendations for supplemental testing.Order confirmation testing: HCV Quant by PCR testing - HCVPCR #[id number] Non Reactive: < 0.8 Equivocal: >/= 0.8 to < 1.0 Reactive: >/= 1.0The CDC requires that a reactive/equivocal HCV antibody result be sent out for confirmation. HCV Quant by PCR testing. Immature granulocytes/100 WB C Auto (Bld)Ordered By: Sindhu Leblanc on 09-22-2024 Immature granulocytes/100 WBC (Bld) 0.400 % 0.0-0.9 [facility] Comment on above: IG% - Immature Granu locytes (promyelocytes, myelocytes and metamyelocytes) > 1% indicates that a LEFT SHIFT is Present. L3890.6006on 09-22-2024 HIV Non-Reactive Normal Nonreactive [facility] Comment on above: Result Comment: Non- Reactive Reactive Repeatedly reactive samples must be confirmed according to CDC recommended confirmatory algorithms. The subresults for either HIVAG or AHIV can be used as an aid in the selection of the confirmation algorithm for reactive samples. Send out specimens with Reactive results to [facility] for confirmation. Order the HIV antibody detection and differentiation: lc#[id number] Performed By: #### L 3890.6102, L3890.6301, L509.8002, L501.9985, L3890.6006, L100.0100, L509.4006, BTS ####[facility] [address] [place], [place], [id number] L3890.6102on 09-22-2024 HEP B Surf Ag Non-Reactive Normal Nonreactive [facility] Comment on above: Result Comment: Reac tive: Presumptive evidence of HBV. Repeatedly reactive samples must be confirmed using a neutralization test ([employer] HBsAg Confirmatory Test) Non-Reactive: HBsAg not detected; does not exclude the possibility of exposure to HBV Performed By: #### L 3890.6102, L3890.6301, L509.8002, L501.9985, L3890.6006, L100.0100, L509.4006, BTS ####[facility] [address] [facility] [place], [address] L3890.6301on 09-22-2024 Hepatitis C Ab Non-Reactive Normal Nonreactive [facility] Comment on above: Result Comment: Reac tive: Presumptive evidence of antibodies to HCV. Follow CDC recommendations for supplemental testing. Non-Reactive: Antibodies to HCV were not detected; does not exclude the possibility of exposure to HCV Reactive Results are presumptive evidence of antibodies to HCV. Follow CDC recommendations for supplemental testing. Order confirmation testing: HCV Quant by PCR testing - HCVPCR #[id number] Non Reactive: < 0.8 Equivocal: >/= 0.8 to < 1.0 Reactive: >/= 1.0 The CDC requires that a reactive/equivocal HCV antibody result be sent out for confirmation. HCV Quant by PCR testing. Performed By: #### L 3890.6102, L3890.6301, L509.8002, L501.9985, L3890.6006, L100.0100, L509.4006, BTS ####[facility] [address] [facility] [place], [address] L509.4006on 09-22-2024 Rubella IgG REAC Normal Nonreactive [facility] Comment on above: Result Comment: Anti body Result: Interpretation Non-Reactive: Non-Immune Reactive: Immune The following results were obtained with the [employer] Rubella IgG assay. Results from assays of other manufacturers cannot be used interchangeably. Performed By: #### L 3890.6102, L3890.6301, L509.8002, L501.9985, L3890.6006, L100.0100, L509.4006, BTS ####[facility] [address] [facility] [place], [address] L509.8002on 03-21-2025 Syphilis Abs Non-Reactive Normal Nonreactive [facility] Comment on above: Performed By: #### L 3890.6102, L3890.6301, L509.8002, L501.9985, L3890.6006, L100.0100, L509.4006, BTS ####[facility] [address] [place], [address] Laboratory - Microbiology an d Antimicrobial susceptibilityOrdered By: Sindhu Leblanc on 09-22-2024 HBV surface Ag Ql (S) Non-Reactive Nonreactive [facility] Comment on above: Reactive: Presumptiv e evidence of HBV. Repeatedly reactive samples must be confirmed using a neutralization test ([employer]s HBsAg Confirmatory Test)Non-Reactive: HBsAg not detected; does not exclude the possibility of exposure to HBV Lymphocytes Auto (Unsp spec) [#/Vol]Ordered By: Sindhu Leblanc on 09-22-2024 Lymphocytes (Bld) [#/Vol] 2.44 10*3/uL 0.83-4.51 [facility] MCV (mean corpuscular volume ) determinationOrdered By: Sindhu Leblanc on 09-22-2024 MCV (RBC) [Entitic vol] 88.9 fL Normal 81-99 [facility] Comment on above: Performed By: #### L 3890.6102, L3890.6301, L509.8002, L501.9985, L3890.6006, L100.0100, L509.4006, BTS #### [facility] [address] [place], [place], [id number] Mean corpuscular hemoglobin (MCH) determinationOrdered By: Sindhu Leblanc on 09-22-2024 MCH (RBC) [Entitic mass] 30.6 pg Normal 27.0-32.0 [facility] Comment on above: Performed By: #### L 3890.6102, L3890.6301, L509.8002, L501.9985, L3890.6006, L100.0100, L509.4006, BTS #### [facility] [address] [place], [place], [id number] Mean corpuscular hemoglobin concentration (MCHC) determinationOrdered By: Sindhu Leblanc on 09-22-2024 MCHC (RBC) [Mass/Vol] 34.4 g/dL Normal 32-36 [facility] Comment on above: Performed By: #### L 3890.6102, L3890.6301, L509.8002, L501.9985, L3890.6006, L100.0100, L509.4006, BTS #### [facility] [address] [place], [place], [id number] Mean platelet volume determi nationOrdered By: Sindhu Leblanc on 09-22-2024 Platelet mean volume (Bld) [Entitic vol] 10.3 fL Normal 6.2-12.0 [facility] Comment on above: Performed By: #### L 3890.6102, L3890.6301, L509.8002, L501.9985, L3890.6006, L100.0100, L509.4006, BTS #### [facility] [address] [place], [address] Monocyte percentageOrdered B y: Sindhu Leblanc on 09-22-2024 Monocytes/100 WBC (Bld) 6.5 % Normal 0-10 [facility] Comment on above: Performed By: #### L 3890.6102, L3890.6301, L509.8002, L501.9985, L3890.6006, L100.0100, L509.4006, BTS #### [facility] [address] [place], [address] Neisseria gonorrhoeae nuclei c acid detection by amplified probe techniqueOrdered By: Sindhu Leblanc on 09-22-2024 N. gonorrhoeae DNA PEMA+probe Ql (Unsp spec) Negative Negative [facility] Comment on above: Performed at: =[facility] [place] [id number] Director: Josefina Gómez MD, Phone: [phone] Neutrophil percentageOrdered By: Sindhu Leblanc on 09-22-2024 Neutrophils/100 WBC (Bld) 69.6 % Normal 47-70 [facility] Comment on above: Performed By: #### L 3890.6102, L3890.6301, L509.8002, L501.9985, L3890.6006, L100.0100, L509.4006, BTS #### [facility] [address] [place], [address] No Panel InformationOrdered By: Sindhu Leblanc on 09-22-2024 HIV (1&2) Antibody Non-Reactive Nonreactive [facility] Comment on above: Non-ReactiveReactive Repeatedly reactive samples must be confirmed according to CDC recommended confirmatory algorithms. The subresults for either HIVAG or AHIV can be used as an aid in the selection of the confirmation algorithm for reactive samples.Send out specimens with Reactive results to [facility] for confirmation.Order the HIV antibody detection and differentiation: #[id number] Nucleated red blood cell per centageOrdered By: Sindhu Leblanc on 09-22-2024 Nucleated RBC/100 WBC (Bld) [Ratio] 0 % 0-5 [facility] Rn Care Manager Office Visit Reporton 09-22-2024 Rn Care Manager Office Visit Report [facility] [address], [address] [place] [address] OFFICE VISIT Date of Service: 09/22/24 MR#: [id number] Acct: [id number] Name: CANDI MOYA Rep #: [id number] : 1990 Provider: POPEYE Huber ams Age/Sex: 34/F Location: [facility] Status: Signed Intake Vital Signs 10/08/23 11:41 09/22/24 14:25 Height 5 ft 4 in 5 ft 4 in Weight: 196 lb 207 lb 4 oz BMI 33.6 35.5 BP 96/68 126/79 H Blood Pressure Location Rt brachial Position Sitting Intake Visit Reasons: New OB, LMP 07/21, ANDREA 04/27 Chief Complaint: New OB Is patient in pain?: No Allergies No Known Allergies Allergy (Verified 09/22/24 14:28) Medications ???Medication ???Instructions ???Recorded ???Confirmed ???Type PNV 153-FA 400 mcg-om3 35 mg-dha tab PO DAILY 09/05/24 09/22/24 His tory 25 mg-epa 5 mg-fish oil chew tablet magnesium 250 mg tablet 250 mg PO QDAY 09/05/24 09/22/24 H istory ondansetron 4 mg disintegrating 4 mg PO Q6H PRN nausea and 5 09/22/24 Rx tablet vomiting #20 tabs pyridoxine (vitamin B6) 100 mg 100 mg PO QDAY 09/22/24 09/22/24 H istory tablet Last Menstrual Period: 07/21/24 [facility] Medical History Vaginal after Blood clotting disorder Encounter to determine viability of History of abnormal cervical Pap smear Pre-conception counseling Surgical History S/P Family History Grandmother Ovarian cancer CVA (cerebral vascular accident) Diabetes Grandfather CVA (cerebral vascular accident) Factor V Leiden Maternal Grandmother Diabetes Social History adopted: No household members: spouse and children housing: house number of children: 2 service: No current occupational status: unemployed current occupation: [employer] current occupational exposures/hazards: No pets and animals: No history of recent travel: No sexually active: Yes Smoking Status: Never smoker alcohol intake: never substance use type: does not use well-balanced diet: daily or most days caffeine: Yes Type: carbonated beverages Number of servings: 1 eating out: rarely or never during the past year weight has: increased > 10 lbs what type of physical activity do you participate in: none 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 Date Name GA/Weeks Outcome Route Bth Weight Infant Gen Labor Lgth Anesthesia Del Locatn Provider FOB 02/04/21 Edmun 39 live - full term 7lb 14oz Male epidural [facility] [facility] 08/21/23 Flaco 39 live - full term 9#11oz Male none [facility] Delivery Date: 02/04/21 Last Updated by: Priscilla Gandara, DO was an induction for LGA, cervix was swelling shut therefore csection was done Delivery Date: 08/21/23 Last Updated by: Laura Rowell Baby transported due to breathing issues several hours after delivery HPI New OB, LMP 07/21, ANDREA 04/27 Details: CANDI MOYA is a 34 year old who presents for New OB visit. OB Visit ANDREA Calculator Estimated Delivery Date Method Current WG Current Estimate 04/27/25 LMP (Certain) 9w 0d Other Estimates 04/27/25 Ultrasound #1 9w 0d Comments: HIV: Urine Culture: Sequential Screen: NIPT Screen: Estimated Due Date: 04/27/25 Expected Delivery Route/Plan Labor Preferences- CB/BF classes: [] labor support person: [] labor intervention preferences: [] pain management options preferred: [] cut cord/dad catch: [] : [] PP control planned: [] discussed possible routes of delivery and associated risks: [] special requests: [] patient counseled regarding risks/benefits of trial of labor versus repeat . ACOG/uptodate education given to patient. [] % likelihood of success per calculator TOLAC consent form signed: [] Specific Issue/Plans Covid status: [] Flu vaccine: [] Tdap vaccine: [] Rhogam: [] LARC form signed: [] Problem list reviewed and updated with the most current plan of care details and appropriate orders placed. Relevant counseling for the gestational age provided. Continue routine care and follow up unless otherwise noted in visit notes/problem list details Initial Weight: 207 lb Date -???-???-???-?? (more content not included)... Normal [facility] Platelet countOrdered By: Nic Leblanc on 09-22-2024 Platelets (Bld) [#/Vol] 356 10*3/uL Normal 150-450 [facility] Comment on above: Performed By: #### L 3890.6102, L3890.6301, L509.8002, L501.9985, L3890.6006, L100.0100, L509.4006, BTS #### [facility] [address] [place], [place], [id number] Rubella immune status determ ination by IgG antibody assayOrdered By: Sindhu Leblanc on 09-22-2024 Rubella IgG Antibody REAC Nonreactive [facility] Comment on above: Antibody Result: Int erpretationNon-Reactive: Non-ImmuneReactive: ImmuneThe following results were obtained with the [employer] Rubella IgG assay. Results from assays of other manufacturers cannot be used interchangeably. T. pallidum abOrdered By: Nic Leblanc on 09-22-2024 Syphilis Total Antibody Non-Reactive Nonreactiv e [facility] Type AND Screenon 09-22-2024 Ab SCREEN GEL Negative Normal [facility] Comment on above: Order Comment: PN Performed By: #### L 3890.6102, L3890.6301, L509.8002, L501.9985, L3890.6006, L100.0100, L509.4006, BTS ####[facility] [id number] [facility]. [place], [place], [id number] Urine cultureOrdered By: Jose Cruz Leblanc on 09-22-2024 Bacteria identified Cx Nom (U) Positive Abnormal [facility] White blood cell (WBC) count Ordered By: Sindhu Leblanc on 09-22-2024 WBC (Bld) [#/Vol] 11.2 10*3/uL High 4.4-11.0 [facility] Comment on above: Performed By: #### L 3890.6102, L3890.6301, L509.8002, L501.9985, L3890.6006, L100.0100, L509.4006, BTS #### [facility] [address] [place], [place], [id number] Absolute lymphocyte countOrd ered By: Roro Troy on 08-21-2023 Lymphocytes Auto (Unsp spec) [#/Vol] 3.32 10*3/uL 0.83-4.51 [facility] Automated lymphocyte count a s percentage of total leukocytesOrdered By: Roro Troy on 08-21-2023 Lymphocytes/100 WBC Auto (Unsp spec) 22.1 % 19-41 [facility] Basophil percentageOrdered B y: Roro Troy on 08-21-2023 Basophils/100 WBC (Bld) 0.5 % 0-1 [facility] Eosinophils/100 WBC (Bld) 1.3 % 0-5 [facility] Hemoglobin (Bld) [Mass/Vol] 11.0 g/dL 12.0-15.0 [facility] Monocytes/100 WBC (Bld) 6.7 % 0-10 [facility] Neutrophils (Bld) [#/Vol] 10.3 10*3/uL 2.0-7.7 [facility] Neutrophils/100 WBC (Bld) 68.5 % 47-70 [facility] WBC (Bld) [#/Vol] 15.0 10*3/uL 4.4-11.0 [facility] Determination of erythrocyte mean corpuscular volume (MCV)Ordered By: Roro Troy on 08-21-2023 MCV (RBC) [Entitic vol] 81.3 fL 81-99 [facility] Erythrocyte distribution wid th ratioOrdered By: Roro Troy on 08-21-2023 Erythrocyte distribution width (RBC) [Ratio] 13.6 % 11.6-14.6 [facility] Erythrocyte distribution wid th standard deviationOrdered By: Roro Troy on 08-21-2023 Erythrocyte distribution width (RBC) [Entitic vol] 40.1 fL 35.1-43.9 [facility] Hematocrit Auto (Bld) [Volum e fraction]Ordered By: Roro Troy on 08-21-2023 Hematocrit (Bld) [Volume fraction] 34.4 % 37-47 [facility] Immature granulocytes/100 WB C Auto (Bld)Ordered By: Roro Troy on 08-21-2023 Immature granulocytes/100 WBC (Bld) 0.900 % 0.0-0.9 [facility] Comment on above: IG% - Immature Granu locytes (promyelocytes, myelocytes and metamyelocytes) > 1% indicates that a LEFT SHIFT is Present. Laboratory - Hematology and Cell countsOrdered By: Roro Troy on 08-21-2023 MCH (RBC) [Entitic mass] 26.0 pg 27.0-32.0 [facility] MCHC (RBC) [Mass/Vol] 32.0 g/dL 32-36 [facility] Nucleated RBC/100 WBC (Bld) [Ratio] 0 % 0-5 [facility] Platelet mean volume (Bld) [Entitic vol] 10.4 fL 6.2-12.0 [facility] Platelets (Bld) [#/Vol] 264 10*3/uL 150-450 [facility] RBC Auto (Bld) [#/Vol]Ordere d By: Roro Troy on 08-21-2023 RBC (Bld) [#/Vol] 4.23 10*6/uL 4.2-5.4 [facility] Serum Treponema species anti body detectionOrdered By: Roro Troy on 08-21-2023 Treponema sp Ab Ql (S) Non-Reactive [facility] Comment on above: qc ok Laboratory - Chemistry and C hemistry - challengeon 08-13-2023 Glucose Ql (U) Negative [facility] Laboratory - Urinalysison Protein Ql (U) Negative [facility] Laboratory - Chemistry and C hemistry - challengeon 08-06-2023 Glucose Ql (U) Negative [facility] Laboratory - Urinalysison Protein Ql (U) Negative [facility] Laboratory - Chemistry and C hemistry - challengeon 07-30-2023 Glucose Ql (U) Negative [facility] - Urinalysison Protein Ql (U) Negative [facility] Laboratory - Chemistry and C hemistry - challengeon 07-16-2023 Glucose Ql (U) Negative [facility] - Urinalysison Protein Ql (U) Negative [facility] Laboratory - Chemistry and C hemistry - challengeon 07-02-2023 Glucose Ql (U) Negative [facility] - Urinalysison Protein Ql (U) Negative [facility] Laboratory - Chemistry and C hemistry - challengeon 06-14-2023 Glucose Ql (U) Negative [facility] - Urinalysison Protein Ql (U) Negative [facility] Absolute lymphocyte countOrd ered By: Roro Troy on 06-04-2023 Lymphocytes Auto (Unsp spec) [#/Vol] 2.87 10*3/uL 0.83-4.51 [facility] Basophil percentageOrdered B y: Roro Troy on 06-04-2023 Basophils/100 WBC (Bld) 0.4 % 0-1 [facility] Eosinophils/100 WBC (Bld) 1.7 % 0-5 [facility] Neutrophils (Bld) [#/Vol] 9.6 10*3/uL 2.0-7.7 [facility] Neutrophils/100 WBC (Bld) 69.6 % 47-70 [facility] WBC (Bld) [#/Vol] 13.8 10*3/uL 4.4-11.0 [facility] Blood erythrocytes count (nu mber/volume)Ordered By: Roro Troy on 06-04-2023 RBC (Bld) [#/Vol] 3.55 10*6/uL 4.2-5.4 [facility] Blood hemoglobin measurement (mass/volume)Ordered By: Roro Troy on 06-04-2023 Hemoglobin (Bld) [Mass/Vol] 11.1 g/dL 12.0-15.0 [facility] Blood lymphocytes/100 leukoc ytesOrdered By: Roro Troy on 06-04-2023 Lymphocytes/100 WBC (Bld) 20.8 % 19-41 [facility] Blood monocytes/100 leukocyt esOrdered By: Roro Troy on 06-04-2023 Monocytes/100 WBC (Bld) 6.1 % 0-10 [facility] Blood platelet mean volumeOr dered By: Roro Troy on 06-04-2023 Platelet mean volume (Bld) [Entitic vol] 9.6 fL 6.2-12.0 [facility] Determination of erythrocyte mean corpuscular volume (MCV)Ordered By: Roro Troy on 06-04-2023 MCV (RBC) [Entitic vol] 93.0 fL 81-99 [facility] Gestational diabetes screen 1-hour screen with 50g oral glucose loadOrdered By: Roro Troy on 06-04-2023 Glucose 1 Hr post 50 g glucose PO [Mass/Vol] 102 mg/dL 70-140 [facility] HIV 1 and HIV-2 antibody ass ay with HIV-1 p24 antigen detectionOrdered By: Priscilla Sidhu on 06-04-2023 HIV 1+2 Ab+HIV1 p24 Ag IA Ql Non-Reactive Nonreactive [facility] Hematocrit Auto (Bld) [Volum e fraction]Ordered By: Roro Troy on 06-04-2023 Hematocrit (Bld) [Volume fraction] 33.0 % 37-47 [facility] - Chemistry and C hemistry - challengeon 06-04-2023 Glucose Ql (U) Negative [facility] - Hematology and Cell countsOrdered By: Roro Troy on 06-04-2023 Erythrocyte distribution width (RBC) [Entitic vol] 39.9 fL 35.1-43.9 [facility] Erythrocyte distribution width (RBC) [Ratio] 11.9 % 11.6-14.6 [facility] Immature granulocytes/100 WBC (Bld) 1.400 % 0.0-0.9 [facility] Comment on above: IG% - Immature Granu locytes (promyelocytes, myelocytes and metamyelocytes) > 1% indicates that a LEFT SHIFT is Present. MCH (RBC) [Entitic mass] 31.3 pg 27.0-32.0 [facility] Nucleated RBC/100 WBC (Bld) [Ratio] 0 % 0-5 [facility] - Urinalysison Protein Ql (U) Negative [facility] MCHC Auto (RBC) [Mass/Vol]Or dered By: Roro Troy on 06-04-2023 MCHC (RBC) [Mass/Vol] 33.6 g/dL 32-36 [facility] Platelets bldOrdered By: Omid Troy on 06-04-2023 Platelets (Bld) [#/Vol] 284 10*3/uL 150-450 [facility] Serum Treponema species anti body detectionOrdered By: Priscilla Sidhu on 06-04-2023 Treponema sp Ab Ql (S) Non-Reactive [facility] Laboratory - Chemistry and C hemistry - challengeon 05-18-2023 Glucose Ql (U) Negative [facility] - Urinalysison Protein Ql (U) Negative [facility] Neisseria gonorrhoeae genita l PCROrdered By: Roro Troy on 04-14-2023 N. gonorrhoeae DNA PEMA+probe Ql (Genital specimen) [facility] No Panel InformationOrdered By: Roro Troy on 04-14-2023 Chlamydia trachomatis (PCR) [facility] Neisseria gonorrhoeae genita l PCROrdered By: Roro Troy on 04-13-2023 N. gonorrhoeae DNA PEMA+probe Ql (Genital specimen) [facility] No Panel InformationOrdered By: Roro Troy on 04-13-2023 Chlamydia trachomatis (PCR) [facility] - Chemistry and C hemistry - challengeon 03-17-2023 Glucose Ql (U) Negative [facility] - Urinalysison Protein Ql (U) Negative [facility] Absolute lymphocyte countOrd ered By: Sindhu Leblanc on 03-09-2023 Lymphocytes Auto (Unsp spec) [#/Vol] 2.32 10*3/uL 0.83-4.51 [facility] Basophil percentageOrdered B y: Sindhu Leblanc on 03-09-2023 Basophils/100 WBC (Bld) 0.5 % 0-1 [facility] Eosinophils/100 WBC (Bld) 1.4 % 0-5 [facility] Neutrophils (Bld) [#/Vol] 8.0 10*3/uL 2.0-7.7 [facility] Neutrophils/100 WBC (Bld) 72.4 % 47-70 [facility] WBC (Bld) [#/Vol] 11.1 10*3/uL 4.4-11.0 [facility] Blood erythrocytes count (nu mber/volume)Ordered By: Sindhu Leblanc on 03-09-2023 RBC (Bld) [#/Vol] 3.91 10*6/uL 4.2-5.4 [facility] Blood hemoglobin measurement (mass/volume)Ordered By: Sindhu Leblanc on 03-09-2023 Hemoglobin (Bld) [Mass/Vol] 12.9 g/dL 12.0-15.0 [facility] Blood lymphocytes/100 leukoc ytesOrdered By: Sindhu Leblanc on 03-09-2023 Lymphocytes/100 WBC (Bld) 20.9 % 19-41 [facility] Blood monocytes/100 leukocyt esOrdered By: Sindhu Leblanc on 03-09-2023 Monocytes/100 WBC (Bld) 4.3 % 0-10 [facility] Blood platelet mean volumeOr dered By: Sindhu Leblanc on 03-09-2023 Platelet mean volume (Bld) [Entitic vol] 9.8 fL 6.2-12.0 [facility] Determination of erythrocyte mean corpuscular volume (MCV)Ordered By: Sindhu Leblanc on 03-09-2023 MCV (RBC) [Entitic vol] 91.8 fL 81-99 [facility] Gestational diabetes screen 1-hour screen with 50g oral glucose loadOrdered By: Sindhu Leblanc on 03-09-2023 Glucose 1 Hr post 50 g glucose PO [Mass/Vol] 116 mg/dL 70-140 [facility] HIV 1 and HIV-2 antibody ass ay with HIV-1 p24 antigen detectionOrdered By: Sindhu Leblanc on 03-09-2023 HIV 1+2 Ab+HIV1 p24 Ag IA Ql Non-Reactive Nonreactive [facility] Hematocrit Auto (Bld) [Volum e fraction]Ordered By: Sindhu Leblanc on 03-09-2023 Hematocrit (Bld) [Volume fraction] 35.9 % 37-47 [facility] - Hematology and Cell countsOrdered By: Sindhu Leblanc on 03-09-2023 Erythrocyte distribution width (RBC) [Entitic vol] 41.1 fL 35.1-43.9 [facility] Erythrocyte distribution width (RBC) [Ratio] 12.5 % 11.6-14.6 [facility] Immature granulocytes/100 WBC (Bld) 0.500 % 0.0-0.9 [facility] Comment on above: IG% - Immature Granu locytes (promyelocytes, myelocytes and metamyelocytes) > 1% indicates that a LEFT SHIFT is Present. MCH (RBC) [Entitic mass] 33.0 pg 27.0-32.0 [facility] Nucleated RBC/100 WBC (Bld) [Ratio] 0 % 0-5 [facility] MCHC Auto (RBC) [Mass/Vol]Or dered By: Sindhu Leblanc on 03-09-2023 MCHC (RBC) [Mass/Vol] 35.9 g/dL 32-36 [facility] No Panel InformationOrdered By: Sindhu Leblanc on 03-09-2023 Hepatitis B Surface Antigen Non-Reactive Nonreactive [facility] Hepatitis C Antibody Non-Reactive Nonreactive [facility] Comment on above: Non Reactive: < 0.8 Equivocal: >/= 0.8 to < 1.0 Reactive: >/= 1.0The CDC recommends that a reactive/equivocal HCV antibody result be followed up by the HCV Nucleic Acid Amplificationtest (194328) Rubella IgG Antibody Reactive Nonreactive [facility] Comment on above: Antibody Results Int erpretation of Immune Status Non Reactive Presumed Non-Immune Equivocal Equivocal Reactive Presumed Immune Platelets bldOrdered By: Jose Cruz Leblanc on 03-09-2023 Platelets (Bld) [#/Vol] 270 10*3/uL 150-450 [facility] Serum Treponema species anti body detectionOrdered By: Sindhu Leblanc on 03-09-2023 Treponema sp Ab Ql (S) Non-Reactive [facility] Serum Varicella zoster virus IgG antibody assay by immunoassay (units/volume)Ordered By: Sindhu Leblanc on 03-09-2023 VZV IgG IA Qn (S) < 135 index Immune >165 [facility] Comment on above: Negative <135 Equivo dimitris 135 - 165 Positive >165A positive result generally indicates exposure to thepathogen or administration of specific immunoglobulins,but it is not indication of active infection or stageof disease.Performed at: - [facility] [id number] Director: Kwan Durbin PhD, Phone: [phone] Laboratory - Chemistry and C hemistry - challengeon 02-19-2023 Glucose Ql (U) Negative [facility] Laboratory - Urinalysison Protein Ql (U) Negative [facility] Basophil percentageOrdered B y: Sindhu Leblanc on 01-21-2023 Basophil percentage 0 SEEN /hpf 0-5 [facility] Bilirubin Test strip Ql (U)O rdered By: Sindhu Leblanc on 01-21-2023 Bilirubin Ql (U) Negative Negative [facility] Chlamydia trachomatis rRNA d etection by probe and target amplification methodOrdered By: Sindhu Leblanc on 01-21-2023 C. trachomatis rRNA PEMA+probe Ql (Unsp spec) Negative Negative [facility] Culture, urineOrdered By: Nic Leblanc on 01-21-2023 Bacteria identified Cx Nom (U) Streptococcus agalactiae (B) [facility] Bacteria identified Cx Nom (U) Positive [facility] Ketones Test strip Ql (U)Ord ered By: Sindhu Leblanc on 01-21-2023 Ketones Ql (U) Negative Negative [facility] Laboratory - Chemistry and C hemistry - challengeon 01-21-2023 Glucose Ql (U) Negative [facility] Laboratory - Microbiology an d Antimicrobial susceptibilityOrdered By: Sindhu Leblanc on 01-21-2023 N. gonorrhoeae DNA PEMA+probe Ql (Unsp spec) Negative Negative [facility] Comment on above: Performed at: =[facility] [address] [id number] Director: Josefina Gómez MD, Phone: [phone] Laboratory - Urinalysison Protein Ql (U) Negative [facility] Mucus LM Ql (Urine sed)Order ed By: Sindhu Leblanc on 01-21-2023 Mucus Ql (Urine sed) 0 SEEN /hpf [facility] Nitrite Test strip Ql (U)Ord ered By: Sindhu Leblanc on 01-21-2023 Nitrite Ql (U) Negative Negative [facility] Protein Test strip Ql (U)Ord ered By: Sindhu Leblanc on 01-21-2023 Protein Ql (U) Negative Negative [facility] Squamous epithelial cells de tection in urine sediment by light microscopyOrdered By: Sindhu Leblanc on 01-21-2023 Epithelial cells.squamous LM Ql (Urine sed) 0-5 SEEN /hpf 5-10 [facility] Urine blood detectionOrdered By: Sindhu Leblanc on 01-21-2023 RBC Ql (U) Negative Negative [facility] RBC Ql (U) 0 SEEN /hpf 0-5 [facility] Urine clarityOrdered By: Jose Cruz Leblanc on 01-21-2023 Clarity (U) Sl. Cloudy Clear [facility] Urine color determinationOrd ered By: Sindhu Leblanc on 01-21-2023 Color (U) Yellow Yellow [facility] Urine glucose detectionOrder ed By: Sindhu Leblanc on 01-21-2023 Glucose Ql (U) Normal mg/dl Normal [facility] Urine leukocyte esterase det ection by dipstickOrdered By: Sindhu Leblanc on 01-21-2023 Leukocyte esterase Test strip Ql (U) Negative Negative [facility] Urine pHOrdered By: Sindhu ferrara on 01-21-2023 pH (U) 6.0 [pH] 5.0 - 8.0 [facility] Urine sediment bacteria coun t by microscopy (number/high power field)Ordered By: Sindhu Leblanc on 01-21-2023 Bacteria LM.HPF (Urine sed) [#/Area] 0 /[HPF] None Seen [facility] Urine specific gravity measu rementOrdered By: Sindhu Leblanc on 01-21-2023 Specific gravity (U) [Rel density] 1.025 1.002-1.030 [facility] Urobilinogen Auto test strip Ql (U)Ordered By: Sindhu Leblanc on 01-21-2023 Urobilinogen Ql (U) Normal mg/dl Normal [facility] Serum or plasma choriogonado tropin detectionOrdered By: Renetta Hinojosa on 10-05-2022 HCG ( test) Ql < 1 mIU/mL <4 [facility] Comment on above: hCG levels with Gest ational AgeGestational Age hCG mIU/mL (IU/L)0.2 - 1 week 5 - 501-2 weeks 50 - 5002-3 weeks 100 - 32107-2 weeks 500 - 308762-3 weeks 1000 - 641377-2 weeks 81337 - 100,0006-8 weeks 97055 - 200,0002-3 months 29280 - 100,000 Serum or plasma choriogonado tropin detectionOrdered By: Dr. Sidhu on 09-24-2022 HCG ( test) Ql 7 mIU/mL <4 [facility] Serum or plasma choriogonado tropin detectionOrdered By: Dr. Sidhu on 09-18-2022 HCG ( test) Ql 196 mIU/mL <4 [facility] Comment on above: hCG levels with Gest ational AgeGestational Age hCG mIU/mL (IU/L)0.2 - 1 week 5 - 501-2 weeks 50 - 5002-3 weeks 100 - 38020-7 weeks 500 - 232439-5 weeks 1000 - 030332-1 weeks 80279 - 100,0006-8 weeks 43463 - 200,0002-3 months 76798 - 100,000 Serum or plasma choriogonado tropin detectionOrdered By: Dr. 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 - Office Visiton 08-05 PRODUCT INSPECTION COORDINATOR - Office Visit Diagnoses/Problems Assessed Encounter for Papanicolaou smear of cervix (V76.2) (Z12.4) Pap test, as part of routine gynecological examination (V76.2) (Z01.419) 08/05/2020: ASC-US, HPV negative Heterozygous factor V Leiden mutation (289.81) (D68.51) 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 Annual 2. Heterozygote for factor V Leiden It is felt that the irregular bleeding is a result of the progestin only control pill since she delivered in February 2021. She states that it is not bothersome for her at this time. Follow-up in 1 year or as needed. Chief Complaint Patient is here for her yearly exam and pap test. LMP: 08/13/2021. Patient does self breast exams and states she is having 2 periods a month. History of Present IllnessPresents for annual exam. She voices no complaints and is doing well. Denies any bowel or bladder problems. Denies any breast problems. She is on progesterone only control pills due to history of factor V Leiden. 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 Review of Systems Review of Systems: Constitutional: No fever or [...] other systems reviewed and negative for complaint Active Problems Problems Encounter for initial prescription of contraceptive pills (V25.01) (Z30.011) Encounter for Papanicolaou smear of cervix (V76.2) (Z12.4) Heterozygous factor V Leiden mutation (289.81) (D68.51) Pap test, as part of routine gynecological examination (V76.2) (Z01.419) 08/05/2020: ASC-US, HPV negative Postoperative follow-up (V67.00) (Z09) Screen for STD (sexually transmitted disease) (V74.5) (Z11.3) Status post section routine follow-up (V24.2,V45.89) (Z39.2,Z98.891) Past Medical History Problems History of Delivery of by section (669.70) (O82) 02/04/2021_39weeks_Male_ 7# 10oz History of Menstruation Onset age 10 years Surgical History Problems No history of surgery Family History Grandparent Family history of cerebrovascular accident (CVA) (V17.1) (Z82.3) Grandmother Family history of malignant neoplasm of ovary (V16.41) (Z80.41) Maternal Grandmother Family history of diabetes mellitus (V18.0) (Z83.3) Paternal Grandmother Family history of diabetes mellitus (V18.0) (Z83.3) Social History Problems No alcohol use No illicit drug use Non-smoker (V49.89) (Z78.9) Sexually active Allergies Medication No Known Drug Allergies Recorded By: Neyda Olsen; 07/10/2020 9:00:01 AM Current Meds Medication NameInstruction Clementine 0.35 MG Oral TabletTAKE ONE TABLET BY MOUTH DAILY Vitamin 27-0.8 MG Oral Tablet Vitals Vital Signs Recorded: 20Aug2021 01:58PM Bbdnebkybca44.8 F Scsbuzww009 Yihkwyxzs83 Height5 ft 4 in Mebiau05.2 kg BMI Fdkxiihnrx17.62 kg/m2 BSA Calculated1.91 Tobacco Useb) No [id number] Physical Exam PHYSICAL EXAMINATION: Well-developed, well nourished, in no acute distress, alert and oriented x three, is pleasant and cooperative. HEENT: Clear. Pupils equal, round and reactive to light and accommodation. Extraocular muscles are intact. Oral mucosa pink without exudate. NECK: No lymphadenopathy, no thyromegaly. BREASTS: Symmetric, no palpable masses. No nipple discharge or retraction. LUNGS: Clear bilaterally. HEART: Regular rate and rhythm without murmurs. ABDOMEN: Normoactive bowel sounds, soft and nontender, no guarding or rebound tenderness, no CVA tenderness. EXTREMITIES: No clubbing, cyanosis or edema. NEUROLOGIC: Cranial nerves II-XII grossly intact. : Normal external female genitalia, normal vulva, normal vagina. Normal urethral meatus, urethra and bladder. Normal appearing cervix. Normal-sized uterus, no adnexal masses or tenderness. Pap smear performed today. Signatures Electronically signed by : Rj Hatch MD; Aug 20 2021 2:16PM EST (Author) [facility] [employer] Tobacco Screening.on Last menstrual period start date 13Aug2021 [facility] Work Phone: Tobacco use status CP b) No [facility] Work Phone: PRODUCT INSPECTION COORDINATOR - Visiton 03-04-2021 PRODUCT INSPECTION COORDINATOR - Visit Chief Complaint Patient is here for her 4 week post visit. Patient had a C/S delivery of a male on 02/04/21 at 39 weeks, infant weighted 7 # 10 oz. Patient is currently breast and bottle feeding. Patient would like to discuss control options. Patient has not resumed sexual activity. Patient denies any post depression. Patient has no concerns at this time. History of Present IllnessPatient presents for checkup. She is breast and bottlefeeding. She is a heterozygote for factor V Leiden. Review of Systems Review of Systems: Constitutional: No fever or [...] other systems reviewed and negative for complaint Active Problems Encounter for Papanicolaou smear of cervix (V76.2) (Z12.4) Heterozygous factor V Leiden mutation (289.81) (D68.51) Screen for STD (sexually transmitted disease) (V74.5) (Z11.3) Status post section routine follow-up (V24.2,V45.89) (Z39.2,Z98.891) Past Medical History History of Delivery of by section (669.70) (O82) 02/04/2021_39weeks_Male_ 7# 10oz History of Menstruation Onset age 10 years History of Pap test, as part of routine gynecological examination (V76.2) (Z01.419) 08/05/2020: ASC-US, HPV negative Surgical History No history of surgery Family History Family history of cerebrovascular accident (CVA) (V17.1) (Z82.3) Family history of malignant neoplasm of ovary (V16.41) (Z80.41) Family history of diabetes mellitus (V18.0) (Z83.3) Family history of diabetes mellitus (V18.0) (Z83.3) Social History No alcohol use No illicit drug use Non-smoker (V49.89) (Z78.9) Sexually active Allergies No Known Drug Allergies Recorded By: Neyda Olsen; 07/10/2020 9:00:01 AM Current Meds Enoxaparin Sodium 40 MG/0.4ML Subcutaneous Solution; INJECT 40 MG Daily; Therapy: [id number] to (Evaluate:20Mar2021) Requested for: 06Yeg2023; Last Rx:[id number] Ordered Rx By: Tang Rios; Dispense: 30 Days ; #:30 X 0.4 ML Syringe; Refill: 0;For: Heterozygous factor V Leiden mutation, Status post section routine follow-up; SHERRI = N; Verified Transmission to [facility]; Last Updated By: [employer]; 02/18/2021 1:23:45 PM Vitamin 27-0.8 MG Oral Tablet; Therapy: (Recorded:10Jul2020) to Recorded Dispense: 0 Days ; #: Sufficient Tablet; Refill: 0;For: PMH: Positive urine test; SHERRI = N; Record; Last Updated By: Priscilla Adair; 07/10/2020 9:13:00 AM Vitals Vital Signs Recorded: 73Kwi7337 01:37PM Dhywjtcqpdw95.2 F Osukorwa471 Lomssnnun54 Height5 ft 4 in Qvskia61.1 kg BMI Wzrgehunyb13.2 kg/m2 BSA Calculated1.9 Physical Exam PHYSICAL EXAMINATION: Well-developed, well nourished, in no [...] no guarding or rebound tenderness, no CVA tenderness. Pfannenstiel incisions healing well, well approximated, no erythema or drainage. EXTREMITIES: No clubbing, cyanosis or edema. NEUROLOGIC: Cranial nerves II-XII grossly intact. : Normal external female genitalia, normal vulva, normal vagina. Normal urethral meatus, urethra and bladder. Normal appearing cervix. Normal-sized uterus, no adnexal masses or tenderness. Diagnoses/Problems Postoperative follow-up (V67.00) (Z09) Encounter for initial prescription of contraceptive pills () (Z30.011) Orders Encounter for initial prescription of contraceptive pills Start: Clementine 0.35 MG Oral Tablet; TAKE ONE TABLET BY MOUTH DAILY Rx By: Rj Hatch; Dispense: 0 Days ; #:1 X 28 Tablet Pack; Refill: 12;For: Encounter for initial prescription of contraceptive pills; SHERRI = N; Sent To: [facility] Provider Impressions 1. checkup 2. Contraceptive counseling 3. Heterozygote for factor V Leiden Recommend progestin only control pill for contraception. Patient to return later in the year for her annual exam. Signatures Electronically signed by : jR Hatch MD; Mar 04 2021 2:24PM EST (Author) [facility] [employer] PRODUCT INSPECTION COORDINATOR - Post Opon PRODUCT INSPECTION COORDINATOR - Post Op Diagnoses/Problems Assessed Status post section routine follow-up (V24.2,V45.89) (Z39.2,Z98.891) Heterozygous factor V Leiden mutation (289.81) (D68.51) Orders Heterozygous factor V Leiden mutation, Status post section routine follow-up Start: Enoxaparin Sodium 40 MG/0.4ML Subcutaneous Solution; INJECT 40 MG Daily Follow-up visit in 1 month Outpatient Follow-up Status: Hold For - Scheduling Requested for: [id number] Provider Impressions 1)Post op-patient doing well. Pain controlled. Reviewed precautions for the next 4 weeks. All questions answered. 2) factor V heterozygous-given postoperative case would need to be on Lovenox. Ordered today. Chief Complaint PT HERE TODAY FOR PO VISIT. PT STATES SHE IS HAVING SOME ITCHING AND THE SWELLING IS GOING DOWN. PT FEELS THE INCISION IS HEALING WELL AND HAS NO CONCERNS. PT WANTS TO DISCUSS RESTRICTIONS. History of Present Rulmgnw95-eoto-vou presents for 2-week postop status post primary for arrest. Patient is she is doing well. Pain controlled. Bleeding improving. Bowel and bladder function returned to normal. doing well. Patient is no acute concerns Review of Systems Constitutional: No fevers, chills Eye:no vision changes Respiratory: no SOB Cardiovascular: no chest pain Gastrointestinal: No nausea, vomiting, diarrhea, constipation, abdominal pain Genitourinary:no dysuria Gynecology: See HPI Active Problems Encounter for Papanicolaou smear of cervix (V76.2) (Z12.4) Heterozygous factor V Leiden mutation (289.81) (D68.51) Screen for STD (sexually transmitted disease) (V74.5) (Z11.3) Past Medical History History of Menstruation Onset age 10 years History of Pap test, as part of routine gynecological examination (V76.2) (Z01.419) 08/05/2020: ASC-US, HPV negative Surgical History No history of surgery Family History Family history of cerebrovascular accident (CVA) (V17.1) (Z82.3) Family history of malignant neoplasm of ovary (V16.41) (Z80.41) Family history of diabetes mellitus (V18.0) (Z83.3) Family history of diabetes mellitus (V18.0) (Z83.3) Social History No alcohol use No illicit drug use Non-smoker (V49.89) (Z78.9) Sexually active Allergies No Known Drug Allergies Recorded By: Neyda Olsen; 07/10/2020 9:00:01 AM Current Meds Medication NameInstruction Vitamin 27-0.8 MG Oral Tablet Vitals Vital Signs Recorded: 18Feb2021 11:08AM Wylrhujkzeg43.3 F Kkyraqjs321 Ygeggqxwg98 Height5 ft 4 in Yyqxip950 lb 3.2 oz BMI Lgebiarfel98.96 kg/m2 BSA Calculated1.9 Physical Exam General: None acute distress Eye: Intraocular movements are intact HEENT: Normocephalic Cardiovascular: Regular rate rhythm Respiratory: Lungs are clear to auscultation, respirations are nonlabored Gastrointestinal: Soft nontender nondistended normal bowel sounds. Incision clean dry intact after Steri's removed Musculoskeletal: Normal range of motion Skin: Warm and dry Neurologic: Alert and oriented x3 Psychiatric: Cooperative appropriate mood and affect. Signatures Electronically signed by : Tang Rios DO; Feb 18 2021 1:15PM EST (Author) [facility] [employer] Daily Progress Note - OB-Pos t-partumon 02-07-2021 Daily Progress Note - SB-Wzvf-najjws Current Stage: Stage: Post- Subjective Data: Post : Ambulate: Yes Flatus: Yes Tolerate Diet: Yes Lochia: Light : POD #2 Resting well. Breast-feeding. Objective Information: Objective Information: T PRBPSpO2 Value36.17228951/7298% Date/Time02/07 4:148 4:148 4:148 4:148 4:14 Range(36.6C - 37.1C ) (73 - 86 ) (16 - 16 ) (102 - 116 )/ (65 - 73 ) (97% - 98% ) Highest temp of 37.1 C was recorded at 02/06 13:03 Pain reported at 02/07 4:14: 1 = Mild Physical Exam: Constitutional: alert, oriented Obstetric: Abdomen: Soft and nontender. Low Pfannenstiel incision is healing well, well approximated, no erythema or drainage. Steri-Strips in place. Respiratory/Thorax: normal respiratory effort, lungs clear, no wheezes or rhonchi Cardiovascular: S1 S2 RRR, no murmurs Extremities: no calf tenderness, reflexes 2+ Assessment and Plan: Additional Dx: Status post delivery: Entered Date: 04-Feb-2021 22:37 Arrested active phase of labor: Entered Date: 04-Feb-2021 22:37 Single live : Entered Date: 04-Feb-2021 22:37 39 weeks gestation of : Entered Date: 31-Jan-2021 07:18 Assessment: POD #2 Home today. Will discuss contraception at her checkup. Follow-up in 2 weeks for incision check. Electronic Signatures: Rj Hatch) (Signed 07-Feb-2021 07:11) Authored: Current Stage, Subjective Data, Objective Data, Assessment and Plan, Note Completion Last Updated: 07-Feb-2021 07:11 by Rj Hatch) [facility] Discharge Planning Mhda2np 0 02-07-2021 Discharge Planning Note2 Discharge Planning: Anticipated Discharge [id number]-Dlw-7426 Discharge Planning Date and Time: 02/07/21 1033 According to plan, patient discharged home with and infant Discharge instructions printed and reviewed. Teaching provided on new medications, self-care, signs and symptoms to report, and follow-up appointments. Patient verbalized understanding and denies any questions at time of discharge. Patient instructed to call provider with any additional questions after discharge. Signature: YOLANDA Quinnforklift truck mechanic: Discharge Planning Assessment [id number] Nursing Checklist: Lines/Cathetersremoved/a ppropriate for next level of care Discharge Med Rec Reconciled with Mk Patient has Prescriptionsyes Transportation for Discharge Confirmedyes Follow up Reviewedyes Discharge Instructions Reviewed WithPatient, Significant Other Discharge Instructions Outcomeverbalize recall/understanding Discharge Instructions Review Completed with Patient/Family (diet, activity, pt instructions)yes Discharge Documentation: Discharge/Transfer Date/Znov07-Npc-8224 10:33 Discharge Modeambulatory Discharged Accompanied Byspouse Transportation Methodprivate car Final DispositionHome Electronic Signatures: Corine Ortega (RN) (Signed 07-Feb-2021 11:25) Authored: Discharge Planning, Assessment, Nursing Checklist, Discharge Documentation Last Updated: 07-Feb-2021 11:25 by Corine Ortega (RN) [facility] Discharge Aesbxou2hg 021 Discharge Profile2 Discharge Orders: Anticipated Discharge Date: Anticipated Discharge [id number]-3902 Problem List: Additional Dx: Status post delivery: Catalog Name: History of uterine scar from previous surgery Arrested active phase of labor: Catalog Name: Secondary uterine inertia Single live : Catalog Name: Single live 39 weeks gestation of : Catalog Name: 39 weeks gestation of Hospital Providers: Provider RoleProvider Name Rj Ibarra DNAR: DNAR Status: none : Activity: Return to normal activity as tolerated. Patient Instructions: Pelvic Rest: DO NOT place anything in vagina until cleared by OB Provider. Diet: Regular. Follow-Up - OB Provider: Physician/Dept/Jaden Hatch MD Call to Schedule in2 weeks CommentsIncision check Hospital Course (Home Care/Gold Form): Hospital Course: Hospital Course: include significant abnormal lab values Patient underwent a primary section due to failure to progress for a viable male on February 04, 2021. She was afebrile throughout hospital course, and regained both bowel and bladder function. She is breast-feeding and was discharged on postop day 2. Provider FINAL REVIEW of Orders: Final Review: Final Review of Medication Reconciliation and Orders Completedby Physician Reviewing Kranthi Hatch MD at 07-Feb-2021 07:12:46 Other Clinician Instructions: Other Instructions: Other Clinician InstructionsAny woman can have complications after the of [...] or your baby; heart palpitations/racing; change in alertness/confusion. Call your provider if you have: BLEEDING, soaking [...] of appetite, or feeling worthless). If you cant reach your provider or symptoms worsen, call 911 or go to nearest emergency room. *Information obtained from [facility]: Save Your Life: Get Care for These POST- Warning Signs On Behalf on the [facility] Maternity Staff, Congratulations on your . [...] us a call. Also, please join our [facility] Support Group which meets the wednesday of every month at 10 am in the OB unit. No need to register. If you have any questions please call us at [phone]. Again, Congratulations! Warmest Regards, [facility]'s Maternity Staff Electronic Signatures: Rj Hatch) (Signed 07-Feb-2021 07:12) Authored: Discharge Orders, , Hospital Course (Home Care/Gold Form), Provider FINAL REVIEW of Orders, Gold Form - Moth Proofer Summary Corine Ortega (RN) (Signed 07-Feb-2021 08:58) Authored: Other Clinician Instructions Last Updated: 07-Feb-2021 08:58 by Corine Ortega (RN) [facility] Order Reconciliationon 02-07 Order Reconciliation Page 1 Discharge Reconciliation Document Reconciliation Type: Discharge requested on behalf of Rj Hatch (Physician) done by Rj Hatch) Discharge - Reconciliation: 07-Feb-2021 07:13 by: Rj Hatch) Current OrdersDateHOME MEDICATIONS AT DISCHARGE DateReconciliation Comment/ Additional Information Acetaminophen Tablet (TYLENOL)DOSE = 975 mg Oral Every 6 HoursClinician Notes: Give dose with Ibuprofen. 04-Feb-2021 22:36 Acetaminophen is not required Benzocaine 20% - Menthol 0.5% Topical [place] (DERMOPLAST)DOSE = 1 application(s) Topical 4 Times a Day, PRN DiscomfortApply to Perianal Area 04-Feb-2021 22:36 Benzocaine 20% - Menthol 0.5% Topical is not required Bisacodyl Rectal Suppository (DULCOLAX)DOSE = 10 mg Rectal Daily, PRN Severe constipation 04-Feb-2021 22:36 Bisacodyl Rectal is not required Carboprost IntraMuscular (HEMABATE)DOSE = 250 microgram(s) IntraMuscular Once, PRN bleeding in non-asthmatic patientClinician Notes: Consult provider prior to administration. 04-Feb-2021 22:36 Carboprost IntraMuscular is not required Docusate Capsule (COLACE)DOSE = 100 mg Oral 2 Times a Day 04-Feb-2021 22:36 Docusate is not required hydrALAZINE (APRESOLINE) Injectable DOSE = 5 mg IntraVenous Push Once, PRN Acute-onset, severe HTN w/out known, suspected CADClinician Notes: Consult provider prior to administration. Push over more than 2 minutes. 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 04-Feb-2021 22:36 HYDROmorphone Injectable is not required Ibuprofen Tablet (ADVIL, MOTRIN)DOSE = 600 mg Oral Every 6 HoursClinician Notes: Give with Acetaminophen. 04-Feb-2021 22:36 Ibuprofen is not required Labetalol Injectable (TRANDATE)DOSE = 20 mg IntraVenous Push Once, PRN Acute-onset, sev HTN w/o active asthma, evelia<60Clinician Notes: Consult provider prior to administration. Push over more than 2 minutes. Systolic greater than or equal to 160 OR 04-Feb-2021 22:36 Labetalol Injectable is not required Lanolin Topical Ointment (LANSINOH)DOSE = 1 application(s) Topical Daily, PRN Dry SkinApply to NippleClinician Notes: After and PRN 04-Feb-2021 22:36 Lanolin Topical is not required Lidocaine 5% TransDermal Film (LIDODERM)DOSE = 1 patch TransDermal Every 24 Hours, Apply to Abdomen, PRN Incisional painClinician Notes: On for 12 hours then remove for 12 hours. 04-Feb-2021 22:36 Lidocaine 5% TransDermal is not required Loperamide Capsule (IMODIUM)DOSE = 4 mg Oral Every 2 Hours, PRN If Carboprost given or loose stoolsClinician Notes: Max dose of 16mg / 24 hours 04-Feb-2021 22:36 Loperamide is not required Magnesium Hydroxide -Al Hydrox -Simethicone Oral Liquid (MAALOX)DOSE = 30 mL Oral Every 4 Hours, PRN Indigestion/Heartburn 04-Feb-2021 22:36 Magnesium Hydroxide -Al Hydrox -Simethicone Oral Liquid is not required Magnesium Hydroxide Oral Liquid CONCENTRATE (MILK OF MAGNESIA)DOSE = 10 mL Oral Every 24 Hours, PRN Constipation 04-Feb-2021 22:36 Magnesium Hydroxide Oral Liquid CONCENTRATE is not required Measles -Mumps -Rubella (Live) MMR Vaccine DOSE = 0.5 mL SubCutaneous Once, PRN if patient screen is non- immune or equivocalClinician Notes: administer if patient screen is non- immune or equivocal 04-Feb-2021 22:36 Measles -Mumps -Rubella (Live) MMR Vaccine is not required Methylergonovine Injectable (METHERGINE)DOSE = 0.2 mg IntraMuscular Once, PRN bleeding in non-hypertensive patientClinician Notes: Consult provider prior to administration.Notes from Pharmacy: Reproductive Risk - Single Nitrile Glove 04-Feb-2021 22:36 Methylergonovine Injectable is not required Metoclopramide Injectable (REGLAN)DOSE = 10 mg IntraVenous Push Every 6 Hours, PRN persistent PONV if first line ineffective 04-Feb-2021 22:36 Metoclopramide Injectable is not required miSOPROStol Rectal Tablet (Cytotec)DOSE = 800 microgram(s) Rectal Once, PRN bleedingClinician Notes: Consult provider prior to administration.Notes from Pharmacy: Reproductive Risk - Single Nitrile Glove 04-Feb-2021 22:36 miSOPROStol Rectal is not required NIFEdipine (PROCARDIA) CapsuleDOSE = 10 mg Oral Once, PRN Acute-onset, severe HTN w/out IV access/ pref oralClinician Notes: Consult provider prior to administration. Systolic greater than or equal to 160 OR Diastolic greater than or equal to 110. Cap 04-Feb-2021 22:36 NIFEdipine (PROCARDIA) is not required Ondansetron Injectable (ZOFRAN)DOSE = 4 mg IntraVenous Push Every 6 Hours, PRN PONV, first line 04-Feb-2021 22:36 Ondansetron Injectable is not required Oxytocin 30 units/ NaCL 0.9% 500 mL Bolus Solution (PITOCIN)IntraVenous ONE TIME Bolus = 600 milliunits/minAdmin Rate = 60 m (more content not included)... Normal [facility] CBCon 02-06-2021 Erythrocyte distribution width (RBC) [Ratio] 13.3 % Normal 11.5 - 14.[address] [facility] Comment on above: Performed By: #### C BC ####[address] [address] Hematocrit (Bld) [Volume fraction] 29.7 % Low 36.0 - 46.[address] [facility] Comment on above: Performed By: #### C BC ####[address] [address] Hemoglobin (Bld) [Mass/Vol] 9.7 g/dL Low 12.0 - 16.[address] [facility] Comment on above: Performed By: #### C BC ####[address] [address] MCHC (RBC) [Mass/Vol] 32.5 g/dL Normal 32.0 - 36.0 [facility] Comment on above: Performed By: #### C BC ####[address] [address] MCV (RBC) [Entitic vol] 89 fL Normal 80 - 100 [facility] Comment on above: Performed By: #### C BC ####[address] [address] Platelets (Bld) [#/Vol] 240 10*3/uL Normal 150 - [address] [facility] Comment on above: Performed By: #### C BC ####[address] [address] RBC 3.35 x10E12/L Low 4.00 - 5.[address] [facility] Comment on above: Performed By: #### C BC ####[address] [address] WBC (Bld) [#/Vol] 16.3 10*3/uL High 4.4 - 11.[address] [facility] Comment on above: Performed By: #### C BC ####[address] [address] Daily Progress Note - OB-Pos t-partumon 02-06-2021 Daily Progress Note - [id number] Current Stage: Stage: Post- Subjective Data: Post : Ambulate: Yes Flatus: Yes Tolerate Diet: Yes Lochia: Light : POD #1 Resting well. Breast-feeding. Objective Information: Objective Information: T PRBPSpO2 [id number]/6796% Date/Time02/06 4:118/5 4:118/5 4:118/5 4:118/5 4:11 Range(36.5C - 37C ) (69 - 86 ) (14 - 16 ) (101 - 116 )/ (62 - 69 ) (95% - 98% ) Highest temp of 37 C was recorded at 02/05 8:40 Pain reported at 02/06 7:10: 1 = Mild Physical Exam: Constitutional: alert, oriented Obstetric: Abdomen: Soft and nontender. Low Pfannenstiel incision is healing well, well approximated, no erythema or drainage, Steri-Strips in place. Respiratory/Thorax: normal respiratory effort, lungs clear, no wheezes or rhonchi Cardiovascular: S1 S2 RRR, no murmurs Extremities: no calf tenderness, reflexes 2+ Recent Lab Results: Results: CBC: 02/06/2021 05:10 \ Hgb / \ 9.7 L / WBC Plt 16.3 H 240 / Hct \ / 29.7 L \ RBC: 3.35 L MCV: 89 Assessment and Plan: Additional Dx: Status post delivery: Entered Date: 04-Feb-2021 22:37 Arrested active phase of labor: Entered Date: 04-Feb-2021 22:37 Single live : Entered Date: 04-Feb-2021 22:37 39 weeks gestation of : Entered Date: 31-Jan-2021 07:18 Comorbidity: Comorbidtyanemia Anemiaacute blood loss anemia Assessment: POD #1 Progressing well. Encourage ambulation. Electronic Signatures: Rj Hatch) (Signed 06-Feb-2021 07:24) Authored: Current Stage, Subjective Data, Objective Data, Assessment and Plan, Note Completion Last Updated: 06-Feb-2021 07:24 by Rj Hatch) [facility] - Hematology and Cell countson 02-06-2021 Erythrocyte distribution width (RBC) [Ratio] 13.3 % See Below [employer] Work Phone: Comment on above: Reference Range: 11. 5 - 14.5 Hematocrit (Bld) [Volume fraction] 29.7 % below low threshold See Below [employer] Work Phone: Comment on above: Reference Range: 36. 0 - 46.0 Hemoglobin (Bld) [Mass/Vol] 9.7 g/dL below low threshold See Below [facility] [employer] Work Phone: Comment on above: Reference Range: 12. 0 - 16.0 MCHC (RBC) [Mass/Vol] 32.5 g/dL See Below [employer] [facility] Work Phone: Comment on above: Reference Range: 32. 0 - 36.0 MCV (RBC) [Entitic vol] 89 fL 80 - 100 [facility] [employer] Work Phone: Platelets (Bld) [#/Vol] 240 10*3/uL 150 - 450 [facility] [employer] Work Phone: RBC (Bld) [#/Vol] 3.35 {x10E12/L} below low threshold See Below [facility] [employer] Work Phone: Comment on above: Reference Range: 4.0 0 - 5.20 WBC (Bld) [#/Vol] 16.3 10*3/uL above high threshold 4.4 - 11.3 [facility] [employer] Work Phone: ABO/RH GROUP TESTon 02-06-20 21 ABO TYPE O Normal [facility] Comment on above: Performed By: #### V ERAB #### [place] [address] RH TYPE Positive Normal [facility] Comment on above: Performed By: #### V ERAB #### [address] [address] CBCon 02-05-2021 Erythrocyte distribution width (RBC) [Ratio] 12.9 % Normal 11.5 - 14.[address] [facility] Comment on above: Performed By: #### V ERAB #### [address] [address] Hematocrit (Bld) [Volume fraction] 31.5 % Low 36.0 - 46.[address] [facility] Comment on above: Performed By: #### V ERAB #### [address] [address] Hemoglobin (Bld) [Mass/Vol] 10.3 g/dL Low 12.0 - 16.[address] [facility] Comment on above: Performed By: #### V ERAB #### [address] [address] MCHC (RBC) [Mass/Vol] 32.8 g/dL Normal 32.0 - 36.0 [facility] Comment on above: Performed By: #### Nikolay ERAB #### [address] [address] MCV (RBC) [Entitic vol] 88 fL Normal 80 - 100 [facility] Comment on above: Performed By: #### V ERAB #### [address] [address] Platelets (Bld) [#/Vol] 259 10*3/uL Normal 150 - [address] [facility] Comment on above: Performed By: #### Nikolay ERAB #### [address] [address] RBC 3.57 x10E12/L Low 4.00 - 5.[address] [facility] Comment on above: Performed By: #### V ERAB #### [address] [address] WBC (Bld) [#/Vol] 21.3 10*3/uL High 4.4 - 11.[address] [facility] Comment on above: Performed By: #### V ERAB #### [address] [address] Daily Progress Note - OB-Pos t-partumon 02-05-2021 Daily Progress Note - [id number] Current Stage: Stage: Post- Subjective Data: Post : Ambulate: Yes Lochia: Light : POD #1/2 Resting well. Breast feeding. Objective Information: Objective Information: T PRBPSpO2 [id number]/7198% Date/Time02/05 5: 5:038/4 5:038/4 5:038/4 5:03 Range(36.5C - 37.4C ) (54 - 111 ) (14 - 16 ) (80 - 152 )/ (48 - 94 ) (93% - 100% ) Highest temp of 37.4 C was recorded at 02/04 19:14 Pain reported at 02/05 6:14: 2 = Mild Physical Exam: Constitutional: alert, oriented Obstetric: Abdominal: Soft and nontender, dressing intact and dry. Respiratory/Thorax: normal respiratory effort, lungs clear, no wheezes or rhonchi Cardiovascular: S1 S2 RRR, no murmurs Extremities: no calf tenderness, reflexes 2+ Recent Lab Results: Results: CBC: 02/05/2021 04:09 \ Hgb / \ 10.3 L / WBC Plt 21.3 H 259 / Hct \ / 31.5 L \ RBC: 3.57 L MCV: 88 Assessment and Plan: Additional Dx: Status post delivery: Entered Date: 04-Feb-2021 22:37 Arrested active phase of labor: Entered Date: 04-Feb-2021 22:37 Single live : Entered Date: 04-Feb-2021 22:37 39 weeks gestation of : Entered Date: 31-Jan-2021 07:18 Assessment: POD #1/2 Progressing well. Encourage ambulation. Electronic Signatures: Rj Hatch) (Signed 05-Feb-2021 07:13) Authored: Current Stage, Subjective Data, Objective Data, Assessment and Plan, Note Completion Last Updated: 05-Feb-2021 07:13 by Rj Hatch) [facility] - Hematology and Cell countson 02-05-2021 Erythrocyte distribution width (RBC) [Ratio] 12.9 % See Below [employer] Work Phone: Comment on above: Reference Range: 11. 5 - 14.5 Hematocrit (Bld) [Volume fraction] 31.5 % below low threshold See Below [employer] Work Phone: Comment on above: Reference Range: 36. 0 - 46.0 Hemoglobin (Bld) [Mass/Vol] 10.3 g/dL below low threshold See Below [facility] CenterNATION TechnologiesOz[facility] HospitalF[facility] Work Phone: Comment on above: Reference Range: 12. 0 - 16.0 MCHC (RBC) [Mass/Vol] 32.8 g/dL See Below W[facility] hospitalApplyfulOzarks Community HospitalFunny Or Die Work Phone: Comment on above: Reference Range: 32. 0 - 36.0 MCV (RBC) [Entitic vol] 88 fL 80 - 100 [facility] [employer] Work Phone: Platelets (Bld) [#/Vol] 259 10*3/uL 150 - 450 [facility] Center[facility] [employer] Work Phone: RBC (Bld) [#/Vol] 3.57 {x10E12/L} below low threshold See Below [facility] [employer] Work Phone: Comment on above: Reference Range: 4.0 0 - 5.20 WBC (Bld) [#/Vol] 21.3 10*3/uL above high threshold 4.4 - 11.3 [facility] [employer] Work Phone: REQUEST-LEUKOREDUCED RED AMPARO LSon 02-05-2021 REQUEST-LEUKOREDUCED RED CELLS ORDER RECD Normal [facility] Comment on above: Performed By: #### O ADMINISTRATIVE DIRECTOR ####[place] [id number] Admission Risk Screen - OBon 02-04-2021 Admission Risk Screen - OB Allergies: Allergies: No Known Allergies: Patient Verification: New W ID Band Applied in my Departmentyes Patient Identity Verified Bypatient ID Band FULL Name, include Middle, spelling matches patient's ID used for verificationyes ID Band Matches Patient ID used for Verficationyes ID Band MRN Matches EMR MRNyes Visitor Restriction: Coronavirus Visitor Restriction: Reasonable restrictions to in-person visitors will be observed due to current coronavirus pandemic. Travel History: COVID-19 Screening Completedno exposure or symptoms Travel or Exposure Past 30 DaysNO travel to International locations in the past 30 days Advance Directive: Advance Directive/DNRno Advance Directive Information Givenpatient/family declined Wall Fall Screen: History of falling (immediate or previous)no (0) Secondary Diagnosisno (0) Intravenous Therapy/ Heparin/Saline Lockyes (20) Gait/Transferringnormal/ bedrest/wheelchair (0) Ambulatory Aidsnone/bedrest/nurse assist (0) Mental Statusoriented to own ability (0) Score: Low risk (<25). Moderate risk (25-44). High risk (>44).20 Wall InterventionsLOW INTERVENTIONS: *patient oriented to surroundings and call system, * patient/family falls education completed and documented, *patients fall status communicated during bedside handoff, *whiteboard updated, *mode of toileting discussed with patient, *bed in low position with brakes locked, *call light in reach, * non-skid footwear Functional screen: Functional Screen: In the recent/past 2-4 weeks, patient or family have noticedno issues that require a rehabilitation consult at this time Learning Assessment (Patient): Patient is Able to be Assessed for Learningyes Factors Influencing Readiness to Learnpain Factors that Impact Ability to Learnnone Devices/Methods Used to Communicatenone Learning Preferencesverbal instruction Cultural Considerationsnone Developmental Considerationsnone Anabaptism Considerationsnone Learning Assessment (Other Learner): Other learner availableno Nutrition Risk Screen: Nutrition Risk Screenno indicators present Nutrition Consult needed this visitno Can Patient Participate in Room Serviceyes Pain Screen: Pain Control Method: Laborepidural Pain Control Method: Postpartummedication Pain Scalenumerical 0-10 Pain Scale Educationteaching provided Acceptable Pain Level3 = Mild Expression of Pain (nonverbal)none Chronic Painno Skin - René Scale: René Scale (daily): René: Sensory Perception (response to environment)(4) no impairment René: Moisture (degree skin exposed to moisture)(4) rarely moist René: Activity (ability to walk)(4) walks frequently René: Mobility (amount/control of body movement)(4) no limitation René: Nutrition (quality of food intake)(4) excellent René: Friction and Shear(3) no apparent problem René: Score23 Pressure Injury Present on Admissionno Spiritual Screen: Are there any cultural, spiritual, adventist practices/values/needs that are important for us to knowno Depression Screen: During the past month, have you often been bothered by feeling down, depressed or hopelessno During the past month, have you often had little interest or pleasure in doing thingsno Have you had any thoughts of harming anyone elseno [place] Suicide: Risk Screen Not Applicable/Able to Answerable to be screened In the Past Month: Have you wished you were or could go to sleep and not wake upno In the Past Month: Have you had any actual thoughts of killing yourselfno Lifetime: Have you ever done, started to do, or prepared to do anything to end your lifeno [place] Suicide Risknegative Family Violence Screen: Are you or have you been threatened or abused physically, emotionally, or sexually by anyoneno Do you feel UNSAFE going back to the place where you are livingno Clinical assessment: Are there any apparent signs of injuries/behaviors that could be related to abuse/neglectno Social Service Consult for abuse/neglect needed this visitno Vaccinations: Vaccination - Influenza Vaccination Screen: Is it flu season (between and October 02)No Vaccination - Pneumonia Vaccination Screen: Patient has received a previous pneumonia vaccine:no/unknown... Immunocompetent persons with underlying chronic conditions or reside in rodent exterminator care facilitiesnone of these conditions Persons with Functional or Anatomic Asplenianone of these conditions Immunocompromised Personsnone of these conditions Pneumonia vaccine NOT indicated due to:patient DOES NOT have a condition that indicates vaccination Vaccination - TDap Vaccination Screen: Have you received a TDap vaccine this pregnancyyes (no further action required) Significant Indicatiors: Significant Indicators: Complete Note Name:Admission Risk Screen - OB Electronic Signatures: Kerry (more content not included)... Normal [facility] CBCon 02-04-2021 Erythrocyte distribution width (RBC) [Ratio] 13.4 % Normal 11.5 - 14.[address] [facility] Comment on above: Performed By: #### C BC ####[address] [address] Hematocrit (Bld) [Volume fraction] 35.8 % Low 36.0 - 46.[address] [facility] Comment on above: Performed By: #### C BC ####[address] [address] Hemoglobin (Bld) [Mass/Vol] 11.9 g/dL Low 12.0 - 16.[address] [facility] Comment on above: Performed By: #### C BC ####[address] [address] MCHC (RBC) [Mass/Vol] 33.2 g/dL Normal 32.0 - 36.0 [facility] Comment on above: Performed By: #### C BC ####[address] [address] MCV (RBC) [Entitic vol] 88 fL Normal 80 - 100 [facility] Comment on above: Performed By: #### C BC ####[address] [address] Platelets (Bld) [#/Vol] 295 10*3/uL Normal 150 - [address] [facility] Comment on above: Performed By: #### C BC ####[address] [address] RBC 4.08 x10E12/L Normal 4.00 - 5.[address] [facility] Comment on above: Performed By: #### C BC ####[address] [address] WBC (Bld) [#/Vol] 11.7 10*3/uL High 4.4 - 11.[address] [facility] Comment on above: Performed By: #### C BC ####[address] [address] Clinical Event Note-Labor No ryan 02-04-2021 Clinical Event Note-Labor Note Clinical Event: Clinical Event Note: TopicLabor Note Details Vaginal exam: 9/90%/+1. Cervix is now edematous. No change in vaginal exam for 4 hours despite adequate labor. Cat I tracing. Recommend primary section due to failure to progress. Patient informed of risks of surgery including risk of anesthesia, infection, bleeding, injury to internal organs including bowel, bladder or ureter, uterine perforation or fistula formation. Her questions were answered to her satisfaction and she agrees to undergo the procedure. Electronic Signatures: Rj Hatch) (Signed 04-Feb-2021 20:20) Authored: Clinical Event Note Last Updated: 04-Feb-2021 20:20 by Rj Hatch) [facility] - Blood bankon ABO group Nom (Bld) O [facility]ApplyfulB[facility] [employer] Work Phone: Rh immune globulin screen (Bld) [Interp] Positive [facility] HospitalApply[facility] [place] [address] [employer] Work Phone: ABO group Nom (Bld) O [facility]Apply[facility] [employer] Work Phone: Blood group antibody screen Ql Negative [facility] [employer] Work Phone: Rh immune globulin screen (Bld) [Interp] Positive [facility] [employer] Work Phone: Laboratory - Hematology and Cell countson 02-04-2021 Erythrocyte distribution width (RBC) [Ratio] 13.4 % See Below [facility] CenterN[facility] TechnologiesB[facility] [employer] Work Phone: Comment on above: Reference Range: 11. 5 - 14.5 Hematocrit (Bld) [Volume fraction] 35.8 % below low threshold See Below [facility] [employer] Work Phone: Comment on above: Reference Range: 36. 0 - 46.0 Hemoglobin (Bld) [Mass/Vol] 11.9 g/dL below low threshold See Below [facility] CenterN[facility] [employer] Work Phone: Comment on above: Reference Range: 12. 0 - 16.0 MCHC (RBC) [Mass/Vol] 33.2 g/dL See Below [facility]ApplyfulB[facility] [employer] Work Phone: Comment on above: Reference Range: 32. 0 - 36.0 MCV (RBC) [Entitic vol] 88 fL 80 - 100 [facility] [employer] Work Phone: Platelets (Bld) [#/Vol] 295 10*3/uL 150 - 450 [facility] CenterN[facility] TechnologiesB[facility] [employer] Work Phone: RBC (Bld) [#/Vol] 4.08 {x10E12/L} See Below [employer] Work Phone: Comment on above: Reference Range: 4.0 0 - 5.20 WBC (Bld) [#/Vol] 11.7 10*3/uL above high threshold 4.4 - 11.3 [facility] [employer] Work Phone: No Panel Informationon 02-04 ORDER RECD [facility] [employer] Work Phone: Order Reconciliationon 02-04 Order Reconciliation Page 1 Admission Reconciliation Document Reconciliation Type: Admission requested on behalf of Rj Hatch (Physician) done by Rj Hatch) Admission - Reconciliation: 04-Feb-2021 07:15 by: Rj Hatch () Additional Current Orders Acetaminophen Rectal Suppository (TYLENOL)DOSE = 650 mg Rectal Once, PRN Initial pain mgmt following deliveryClinician Notes: Administer in the OR. Butorphanol Injectable (NON-Formulary) (STADOL)DOSE = 1 mg IntraVenous Push Every 10 MinutesStop After 2 DosesClinician Notes: Repeat 1 mg dose 10 minutes after initial dose if labor pain unrelieved. Carboprost IntraMuscular (HEMABATE)DOSE = 250 microgram(s) IntraMuscular Once, PRN post bleeding in non-asthmatic patientClinician Notes: Consult provider prior to administration. hydrALAZINE (APRESOLINE) Injectable DOSE = 5 mg IntraVenous Push Once, PRN Acute-onset, severe HTN w/out known, suspected CADClinician Notes: Consult provider prior to administration. Push over more than 2 minutes. Systolic greater than or equal to 160 OR Diastolic greater than or equal to 110. Contraindication: coronary artery disease (CAD); Caution in suspected CAD. Labetalol Injectable (TRANDATE)DOSE = 20 mg IntraVenous Push Once, PRN Acute-onset, sev HTN w/o active asthma/ evelia<60Clinician Notes: Consult provider prior to administration. Push over more than 2 minutes. Systolic greater than or equal to 160 OR Diastolic greater than or equal to 110. Contraindications: active asthma, heart disease, heart failure, maternal bradycardia < 60. Lactated Ringers Infusion IV Bag Volume = 1,000 mL Run at: 125 mL/hr IntraVenous Lactated Ringers IV Bolus DOSE = 500 mL Once, PRN resuscitationInfuse over 30 minute(s) Lactated Ringers IV Bolus DOSE = 500 mL Once, PRN If patient is given an EpiduralInfuse over 30 minute(s)Clinican Notes: Give 30 minutes prior to Epidural catheter placement Loperamide Capsule (IMODIUM)DOSE = 4 mg Oral Every 2 Hours, PRN If Carboprost given or loose stoolsClinician Notes: Max dose of 16mg / 24 hours Methylergonovine Injectable (METHERGINE)DOSE = 0.2 mg IntraMuscular Once, PRN PPH in pts w/o HTN or receiving ART for HIV mgmt.Clinician Notes: Consult provider prior to administration.Notes from Pharmacy: Reproductive Risk - Single Nitrile Glove miSOPROStol Rectal Tablet (Cytotec)DOSE = 800 microgram(s) Rectal Once, PRN post bleedingClinician Notes: Consult provider prior to administration.Notes from Pharmacy: Reproductive Risk - Single Nitrile Glove NIFEdipine (PROCARDIA) CapsuleDOSE = 10 mg Oral Once, PRN Acute-onset, severe HTN w/out IV access/ pref oralClinician Notes: Consult provider prior to administration. Systolic greater than or equal to 160 OR Diastolic greater than or equal to 110. Capsules administered orally and swallowed whole; Do not puncture or crush; Do not administer sublingually. Ondansetron Injectable (ZOFRAN)DOSE = 4 mg IntraVenous Push Once, PRN Nausea & Vomiting Oxytocin 30 units/ NaCL 0.9% 500 mL Bolus Solution (PITOCIN)IntraVenous ONE TIME Bolus = 600 milliunits/minAdmin Rate = 60 mL/hrStop After 1 DosesClinician Notes: 600 milliunits/min x 30 mins., then 60 milliunits/min for the remainder of the bag.Begin infusion at delivery of infant(s).Notes from Pharmacy: DOSE Rate = 60 milliunits/min = 60 mL/hr.Reproductive Risk - Single Nitrile Glove Oxytocin 30 units/ NaCL 0.9% 500 mL Bolus Solution (PITOCIN)IntraVenous ONE TIME Bolus = 600 milliunits/minAdmin Rate = 60 mL/hrStop After 1 DosesClinician Notes: Conditional order. 600 milliunits/min x 30 mins., then 60 milliunits/min for the remainder of the bag. For continued hemorrhage. Consult Provider prior to administration.Notes from Pharmacy: DOSE Rate = 60 milliunits/min = 60 mL/hr. Oxytocin 30 units/ NaCL 0.9% 500 mL Infusion. Solution (PITOCIN)IntraVenous Initial Admin Rate = 2 mL/hrMAX DOSE Rate = 30 milliunits/minTitration Directions: Increase every 30 min by 2 mU/min per Oxytocin Administration guideline and algorithm. Titrate to maintain adequate contraction pattern with labor progress.Titration dosing schedule: 60 mU/ mL at 1 mL/hr = 60 mU/60 min = 1 mU/minNotes from Pharmacy: Initial DOSE Rate = 2 milliunits/min = 2 mL/hr.Reproductive Risk - Single Nitrile Glove Oxytocin Injectable (PITOCIN)DOSE = 10 unit(s) IntraMuscular OnceClinician Notes: Conditional order. Consult Provider prior to administration. Oxytocin Injectable (PITOCIN)DOSE = 10 unit(s) IntraMuscular Once, PRN Management-3rd Stage of labor if not given IVPBClinician Notes: Consult Provider prior to administration.Notes from Pharmacy: Reproductive Risk - Single Nitrile Glove Terbutaline Injectable (BRETHINE)DOSE = 0.25 mg SubCutaneous Once, PRN for Onset of Uterine Tetany Tranexamic Acid Injectable (CYKLOKAPRON)DOSE = 1,000 mg IntraVenous Push Once, PRN Post bleeding in all patient (more content not included)... Normal [facility] SYPHILIS SCREENING WITH REFL EXon 02-04-2021 SYPHILIS TOTAL AB Non-Reactive Normal NONREACTIVE [facility] Comment on above: Result Comment: No s ignificant level of Treponema pallidum antibody detected. Repeat testing in 2 to 4 weeks may be considered if early infection or incubating syphilis infection is suspected. Performed By: #### S YPHR #### [facility] [id number] [place] [address] Lab Specimen Source Normal [facility] Comment on above: Performed By: #### S YPHR #### [place] [address] [place] [address] T. pallidum IgG+IgM IA Ql (S) Non-Reactive See Below [employer] Work Phone: Comment on above: SOURCE: Reference Ra nge: NONREACTIVENo significant level of Treponema pallidum antibody detected. Repeat testing in 2 to 4 weeks may be considered if early infection or incubating syphilis infection is suspected. TYPE + SCREENon 02-04-2021 ABO TYPE O Normal [facility] Comment on above: Performed By: #### T +S ####[address] [address] RH TYPE Positive Normal [facility] Comment on above: Performed By: #### T +S ####[address] [address] Coronavirus 2019 RNA by PCR, Screening Asymptomticon 02-01-2021 Coronavirus 2019 RNA by PCR, Screening Asymptomtic Not detected Normal See Below [facility] [employer] Work Phone: Comment on above: SOURCE: Nasal, Nasop haryngealReference Range: Not Detected.This assay is designed to detect the N, ORF1ab and/or S genes of SARS-CoV-2 via nucleic acid amplification. A Negative (NOT DETECTED) result does not preclude 2019-nCoV infection since the adequacy of sample collection and/or low viral burden may result in presence of viral nucleic acids below the clinical sensitivity of this test method. Negative (NOT DETECTED) result should not be used as the sole basis for treatment or other patient management decisions. Rather negative results should be combined with clinical observations, patient history, and epidemiological information to make patient management decisions.Fact sheet for providers: https://www.fda.gov/media/259594/downloadFact sheet for patients: https://www.fda.gov/media/636573/downloadThis test has received FDA Emergency Use Authorization (EUA) and has been verified by [facility] ([facility]). This test is only authorized for the duration of time that circumstances exist to justify the authorization of the emergency use of in vitro diagnostic tests for the detection of SARS-CoV-2 virus and/or diagnosis of COVID-19 infection under section 564(b)(1) of the Act, 21 U.S.C. 360bbb-3(b)(1), unless the authorization is terminated or revoked sooner. [facility] is certified under CLIA-88 as qualified to perform high complexity testing. Testing is performed in the [facility] laboratories located at [address] [place] [address]. No Panel Informationon 01-28 Normal [facility] [employer] Work Phone: Please click on the link to view the study images Normal [facility] [address] [employer] Work Phone: US AGE FOL-UP PER FETU Son 01-28-2021 US AGE FOL-UP PER FETUS Patient Name: CANDI MOYA STUDY: US AGE FOL-UP PER FETUS 01/28/2021 2:20 pm INDICATION: Growth. COMPARISON: Ultrasound dated 09/24/2020 ACCESSION NUMBER(S): [id number] ORDERING CLINICIAN: RJ HATCH TECHNIQUE: Routine ultrasound of the pelvis was performed. Evaluation of the female pelvis was performed by transabdominal. FINDINGS: There is a single live intrauterine gestation in vertex position. BPD 95mm, 38 weeks, 5 days HC 338mm, 38 weeks, 5 days AC 347mm, 38 weeks, 4 days FL 75mm, 38 weeks, 1 days This results in a composite gestational age of 38 weeks, 4 days, + / -19 days. The estimated date of delivery by ultrasound is 02/07/2021. By dates the fetus should be 38 weeks, 0 days, which is concordant with the ultrasound dating. There is an estimated weight of 3515 g + / -527 g (75th percentile). heart rate measures 144 beats per minute. Evaluation of anatomy is limited as the study was done for the evaluation of growth. The placenta is in a anterior position. No evidence of placenta previa is seen. The amniotic fluid volume is within normal limits, with the amniotic fluid index measuring up to 10.9 cm. Maternal anatomy: Cervix is not well visualized. IMPRESSION: Single live intrauterine gestation corresponding to 38 weeks, days, + / -19 days. Evaluation of anatomy was not performed. Recommend continued routine follow-up imaging evaluation. Electronically signed by: ZENA BALTAZAR MD [facility] GROUP B STREP SCREENon 01-14 GROUP B STREP SCREEN PATIENT: RUBI MOYA LOCATION: [facility] FRANKI#: [id number] : 88 AGE: SEX: F ORDERED BY: RJ HATCH SOURCE: VAGINAL COLLECTED: 01/14/21 08:51 ANTIBIOTICS AT SHARON.: RECEIVED : 01/14/21 20:41 SITE: R E S U L T S GROUP B STREP SCREEN FINAL 01/16/21 10:56 NEGATIVE FOR GROUP B BETA STREP. [facility] Comment on above: Performed By: #### G BSCR ####[id number] [id number] Laboratory - Microbiology an d Antimicrobial susceptibilityon 01-14-2021 Bacteria identified Aer cx Nom (Genital specimen) [facility] [place] [address] [address] Work Phone: GLUCOSE BARBARA,3HR PREGNANCYon 11-27-2020 Glucose [Mass/Vol] 113 mg/dL Normal <140 [facility] Comment on above: Performed By: #### G TTP3 #### [address] [address] Glucose [Mass/Vol] 124 mg/dL Normal <155 [facility] Comment on above: Performed By: #### G TTP3 #### [address] [address] Glucose [Mass/Vol] 133 mg/dL Normal <180 [facility] Comment on above: Performed By: #### G TTP3 #### [address] [address] Glucose [Mass/Vol] 74 mg/dL Normal <95 [facility] Comment on above: Performed By: #### G TTP3 #### [address] [address] INTERPRETATION SEE BELOW [facility] Comment on above: Result Comment: Diag nostics with glucose loading dose of 100 g. Reference values from [place] [employer]. Diabetes Care 2015;38(Suppl.1):S8-S16. Performed By: #### G TTP3 #### [facility] [address] [place] [address] GLUCOSE-POCTon 11-27-2020 Glucose [Mass/Vol] 77 mg/dL Normal 74 - 99 [facility] Comment on above: Performed By: #### G YARELIS ####[place] [address] [place] [address] Laboratory - Chemistry and C hemistry - challengeon 11-27-2020 Glucose [Mass/Vol] 77 mg/dL 74 - 99 [facility] [employer] Work Phone: No Panel Informationon 11-27 SEE BELOW [facility] [employer] Work Phone: Comment on above: Diagnostics with glu cose loading dose of 100 g. Reference values from [place] [employer]. Diabetes Care 2015;38(Suppl.1):S8-S16. 124 mg/dL <155 [employer] Work Phone: 133 mg/dL <180 [employer] Work Phone: 74 mg/dL <95 [facility] [employer] Work Phone: 113 mg/dL <140 [facility]- [employer] Work Phone: CBC ANEMIA PANEL WITH REFLEX ,PREGNANCYon 11-13-2020 Erythrocyte distribution width (RBC) [Ratio] 12.0 % Normal 11.5 - 14.[address] [facility] Comment on above: Performed By: #### V ERAB #### [facility] [address] [place] [address] Hematocrit (Bld) [Volume fraction] 37.5 % Normal 36.0 - 46.[address] [facility] Comment on above: Performed By: #### V ERAB #### [facility] [address] [place] [address] Hemoglobin (Bld) [Mass/Vol] 12.6 g/dL Normal 12.0 - 16.[address] [facility] Comment on above: Performed By: #### V ERAB #### [address] [address] MCHC (RBC) [Mass/Vol] 33.6 g/dL Normal 32.0 - 36.0 [facility] Comment on above: Performed By: #### V ERAB #### [address] [address] MCV (RBC) [Entitic vol] 95 fL Normal 80 - 100 [facility] Comment on above: Performed By: #### V ERAB #### [place] [id number] Platelets (Bld) [#/Vol] 287 10*3/uL Normal 150 - [address] [facility] Comment on above: Performed By: #### V ERAB #### [place] [id number] RBC 3.95 x10E12/L Low 4.00 - 5.[address] [facility] Comment on above: Performed By: #### Nikolay ERAB #### [place] [address] REFLEX ADDED, ANEMIA PANEL NONE Normal [facility] Comment on above: Performed By: #### Nikolay ERAB #### [place] [id number] WBC (Bld) [#/Vol] 11.8 10*3/uL High 4.4 - 11.[address] [facility] Comment on above: Performed By: #### V ERAB #### [place] [id number] HCT Canceled Normal [facility] Comment on above: Order Comment: TEST CBC ANEMIA PANEL WITH REFLEX, WAS CANCELLED, 11/13/2020 13:21wrong encounter. Performed By: #### A NEMI ####[place] [id number] [place] [address] HGB Canceled Normal [facility] Comment on above: Order Comment: TEST CBC ANEMIA PANEL WITH REFLEX, WAS CANCELLED, 11/13/2020 13:21wrong encounter. Performed By: #### A NEMI ####[place] [id number] [id number] MCHC Canceled [facility] Comment on above: Order Comment: TEST CBC ANEMIA PANEL WITH REFLEX, WAS CANCELLED, 11/13/2020 13:21wrong encounter. Performed By: #### A NEMI ####[address] [place] [address] MCV Canceled [facility] Comment on above: Order Comment: TEST CBC ANEMIA PANEL WITH REFLEX, WAS CANCELLED, 11/13/2020 13:21wrong encounter. Performed By: #### A NEMI ####[address] [id number] PLT Canceled [facility] Comment on above: Order Comment: TEST CBC ANEMIA PANEL WITH REFLEX, WAS CANCELLED, 11/13/2020 13:21wrong encounter. Performed By: #### A NEMI ####[address] [place] [address] RBC Canceled [facility] Comment on above: Order Comment: TEST CBC ANEMIA PANEL WITH REFLEX, WAS CANCELLED, 11/13/2020 13:21wrong encounter. Performed By: #### A NEMI ####[place] [id number] [place] [address] RDW-CV Canceled [facility] Comment on above: Order Comment: TEST CBC ANEMIA PANEL WITH REFLEX, WAS CANCELLED, 11/13/2020 13:21wrong encounter. Performed By: #### A NEMI ####[place], [place] [id number] [place] [address] REFLEX ADDED, ANEMIA PANEL Canceled Normal [facility] Comment on above: Order Comment: TEST CBC ANEMIA PANEL WITH REFLEX, WAS CANCELLED, 11/13/2020 13:21wrong encounter. Performed By: #### A NEMI ####[address] [id number] [place] [address] WBC Canceled Normal [facility] Comment on above: Order Comment: TEST CBC ANEMIA PANEL WITH REFLEX, WAS CANCELLED, 11/13/2020 13:21wrong encounter. Performed By: #### A NEMI ####[address] [id number] [place] [address] GLUCOSE,1 HR SCREEN, PREGon 11-13-2020 Glucose [Mass/Vol] 173 mg/dL Abnormal <135 [facility] Comment on above: Result Comment: Diag nostic value with glucose loading dose of 50 g. Reference values from [place] [employer]. Diabetes Care 2015;38(Suppl.1):S8-S16 Performed By: #### G LUS1 #### [address] [address] GLUCOSE,1 HR SCREEN, PREG Canceled Normal [facility] Comment on above: Order Comment: TEST GLUCOSE,1 HR SCREEN, PREG WAS CANCELLED, 11/13/2020 13:21 wrong encounter. Result Comment: Diag nostic value with glucose loading dose of 50 g. Reference values from [place] [employer]. Diabetes Care 2015;38(Suppl.1):S8-S16 Performed By: #### G LUS1 #### [address] [address] GLUCOSE-POCTon 11-13-2020 Glucose [Mass/Vol] 70 mg/dL Low 74 - 99 [facility] Comment on above: Performed By: #### G YARELIS ####[address] [address] Glucose, 1 Hour Screen, Preg nancyon 11-13-2020 Glucose 1 Hr post 50 g glucose PO [Mass/Vol] 173 mg/dL Abnormal <135 [employer] Work Phone: Comment on above: Diagnostic value wit h glucose loading dose of 50 g. Reference values from [place] [employer]. Diabetes Care 2015;38(Suppl.1):S8-S16 Laboratory - Chemistry and C hemistry - challengeon 11-13-2020 Glucose [Mass/Vol] 70 mg/dL below low threshold 74 - 99 [facility] Work Phone: Laboratory - Hematology and Cell countson 11-13-2020 Erythrocyte distribution width (RBC) [Ratio] 12.0 % See Below [employer] Work Phone: Comment on above: Reference Range: 11. 5 - 14.5 Hematocrit (Bld) [Volume fraction] 37.5 % See Below [employer] Work Phone: Comment on above: Reference Range: 36. 0 - 46.0 Hemoglobin (Bld) [Mass/Vol] 12.6 g/dL See Below [employer] Work Phone: Comment on above: Reference Range: 12. 0 - 16.0 MCHC (RBC) [Mass/Vol] 33.6 g/dL See Below [facility] [employer] Work Phone: Comment on above: Reference Range: 32. 0 - 36.0 MCV (RBC) [Entitic vol] 95 fL 80 - 100 [facility] [employer] Work Phone: Platelets (Bld) [#/Vol] 287 10*3/uL 150 - 450 [employer] Work Phone: RBC (Bld) [#/Vol] 3.95 {x10E12/L} below low threshold See Below [employer] Work Phone: Comment on above: Reference Range: 4.0 0 - 5.20 WBC (Bld) [#/Vol] 11.8 10*3/uL above high threshold 4.4 - 11.3 [facility] [employer] Work Phone: No Panel Informationon 11-13 NONE [facility] [employer] Work Phone: US OB COMPLETEon 09-24-2020 US OB COMPLETE Patient Name: CANDI MOYA STUDY: US OB COMPLETE 09/24/2020 9:55 am INDICATION: DATES & ANATOMY EDC: 02/11/21. COMPARISON: None. ACCESSION NUMBER(S): [id number] ORDERING CLINICIAN: RJ HATCH TECHNIQUE: Routine ultrasound of the pelvis was performed. Evaluation of the female pelvis was performed by transabdominal. FINDINGS: There is a single live intrauterine gestation in variable position. BPD 50mm, 21 weeks, 1 days HC 182mm, 20 weeks, 4 days AC 155mm, 20 weeks, 5 days FL 32mm, 20 weeks, 0 days This results in a composite gestational age of 20 weeks, 4 days, + / -10 days. The estimated date of delivery by ultrasound is 02/07/2021. By dates the fetus should be 20 weeks, 0 days, which is concordant with the ultrasound dating. There is an estimated weight of 354 g + / -53 g (71st percentile). heart rate measures 130 beats per minute. Anatomy: HEART (FOUR-CHAMBER): Seen THREE-VESSEL CORD: Seen UMBILICAL CORD INSERTION: Seen BLADDER: Seen STOMACH: Seen SPINE: Seen KIDNEYS: Seen DIAPHRAGM: Seen LATERAL VENTRICLE: Seen The placenta is in anterior position. No evidence of placenta previa is seen. The amniotic fluid volume is within normal limits. Maternal anatomy: The cervix is closed, measuring up to 6.7 cm in length. IMPRESSION: Single live intrauterine gestation corresponding to 20 weeks, 4 days, + / -10 days. No gross anatomic abnormalities identified. Recommend continued routine follow-up imaging evaluation. Electronically signed by: ZENA BALTAZAR MD Normal [facility] FACTOR V LEIDENon 08-30-2020 FACTOR V LEIDEN HETEROZYGOUS Abnormal NORMAL [facility] Comment on above: Result Comment: . Interpretive comments: NORMAL result indicates there is no detection of Factor V Leiden (F5 R506Q, c.1601G>A). There would not be increased risk for thrombosis that is associated with this mutation. . HETEROZYGOUS result indicates the patient is heterozygous for Factor V Leiden (F5 R506Q, c.1601G>A) mutation. This is associated with activated protein C resistance and a 4 to 8 fold increased risk for venous thrombosis as compared to individuals without the mutation. Individuals found to have the F5 R506Q mutation should be counseled about secondary risk factors associated with venous thrombosis, as well the implications this test result may have for other family members. . HOMOZYGOUS result indicates the patient is homozygous for Factor V Leiden (F5 R506Q, c.1601G>A). This is associated with activated protein C resistance and an 80 fold increased risk for venous thrombosis as compared to individuals without the mutation. Individuals found to have the F5 R506Q mutation should be counseled about secondary risk factors associated with venous thrombosis, as well the implications this test result may have for other family members. . DNA was extracted from the specimen provided and analyzed using allele-specific TaqMan MGB probes following PCR. This laboratory developed test was developed and its analytical performance characteristics have been determined by [facility]. This test has not been cleared or approved by the FDA; however, the FDA has determined that such approval is not necessary. The [facility] is CAP accredited and certified under the Clinical Laboratory Improvement Amendments of 1988 (CLIA-88) as qualified to perform high complexity testing. Performed By: #### V ERAB #### [address] [address] TYPE + SCREENon 08-08-2020 ABO TYPE O Normal [facility] Comment on above: Order Comment: TEST TYPE + SCREEN WAS CANCELLED, 08/05/2020 11:17 DUPLICATE ORDER. Performed By: #### V ERAB #### [address] [address] HEPATITIS B SURFACE AGon HEP.B SURFACE AG Non-Reactive Normal NONREACTIVE [facility] Comment on above: Result Comment: Biot in interference may cause falsely decreased results. Patients taking a Biotin dose of up to 5 mg/day should refrain from taking Biotin for 24 hours before sample collection. Providers may contact their local laboratory for further information. Performed By: #### V ERAB #### [facility] [address] [place] [address] HEPATITIS C ABon 08-07-2020 HEPATITIS C AB Non-Reactive Normal NONREACTIVE [facility] Comment on above: Result Comment: Resu lts from patients taking biotin supplements or receiving high-dose biotin therapy should be interpreted with caution due to possible interference with this test. Providers may contact their local laboratory for further information. Performed By: #### H CVAB ####[id number] [place] [address] HIV 1/2 ANTIGEN/ANTIBODY SCR EEN WITH REFLEX TO CONFIRMATIONon 08-07-2020 HIV 1/2 AG/AB SCREEN Non-Reactive Normal NONREACTIVE [facility] Comment on above: Result Comment: HIV Ag/Ab screen is performed using the Siemens [employer] HIV Ag/Ab Combo assay which detects the presence of HIV p24 antigen as well as antibodies to HIV-1 (Group M and O) and HIV-2. Performed By: #### V ERAB #### [address] [address] RUBELLA IGG ABon 08-07-2020 RUBELLA IGG AB Positive Normal [facility] Comment on above: Result Comment: INTE RPRETATIVE COMMENT NEGATIVE: No IgG antibodies specific to Rubella detected. It is likely that the patient has not had a previous exposure to Rubella through infection or vaccination. Alternatively, the patient may have been exposed to Rubella but a failure to respond may indicate immunodeficiency. EQUIVOCAL:Equivocal results; obtain additional sample for retesting. POSITIVE: IgG antibody to Rubella detected. This may indicate that the patient was exposed to Rubella through infection or vaccination. The interpretation of serological tests should take into account the immunological status of the patient. Test results for patients, including immunocompromised patients, neonates, and pediatric patients, reflect their capacity to respond immunologically to the virus as well as their exposure to the pathogen. Patients treated with IVIG may demonstrate altered results in serological assays. Performed By: #### V ERAB #### [address] [address] SYPHILIS SCREENING WITH REFL EXon 08-07-2020 SYPHILIS TOTAL AB Non-Reactive Normal NONREACTIVE [facility] Comment on above: Result Comment: No s ignificant level of Treponema pallidum antibody detected. Repeat testing in 2 to 4 weeks may be considered if early infection or incubating syphilis infection is suspected. Performed By: #### S YPHR ####[id number] [place] [address] GC + CHLAMYDIA BY AMPLIFIED DETECTIONon 08-06-2020 CHLAMYDIA TRACH.,AMPLIFIED Negative Normal Negative [facility] Comment on above: Performed By: #### G CCHA #### [facility] [address] [place] [address] N.GONORRHEA,AMPLIFIED Negative Normal Negative [facility] Comment on above: Performed By: #### G CCHA #### [facility] [address] [place] [address] CBC ANEMIA PANEL WITH REFLEX ,PREGNANCYon 08-05-2020 Erythrocyte distribution width (RBC) [Ratio] 12.7 % Normal 11.5 - 14.[address] [facility] Comment on above: Performed By: #### A NEMI #### [address] [address] Hematocrit (Bld) [Volume fraction] 40.4 % Normal 36.0 - 46.[address] [facility] Comment on above: Performed By: #### A NEMI #### [address] [address] Hemoglobin (Bld) [Mass/Vol] 13.8 g/dL Normal 12.0 - 16.[address] [facility] Comment on above: Performed By: #### A NEMI #### [address] [address] MCHC (RBC) [Mass/Vol] 34.3 g/dL Normal 32.0 - 36.0 [facility] Comment on above: Performed By: #### A NEMI #### [address] [address] MCV (RBC) [Entitic vol] 94 fL Normal 80 - 100 [facility] Comment on above: Performed By: #### A NEMI #### [address] [address] Platelets (Bld) [#/Vol] 285 10*3/uL Normal 150 - [address] [facility] Comment on above: Performed By: #### A NEMI #### [address] [address] RBC 4.27 x10E12/L Normal 4.00 - 5.[address] [facility] Comment on above: Performed By: #### A NEMI #### [address] [address] REFLEX ADDED, ANEMIA PANEL NONE Normal [facility] Comment on above: Performed By: #### A NEMI #### [address] [address] WBC (Bld) [#/Vol] 11.2 10*3/uL Normal 4.4 - 11.[address] [facility] Comment on above: Performed By: #### A NEMI #### [address] [address] Cult, Urineon 08-05-2020 Bacteria identified Cx Nom (U) PATIENT: CANDI MOYA LOCATION: [facility]#: [id number] : 88 AGE: SEX: F ORDERED BY: ADAN HATCH: URINE COLLECTED: 08/05/20 08:48ANTIBIOTICS AT SHARON.: RECEIVED : 08/05/20 17:46SITE: Clean Catch/Voided R E S U L T S URINE CULTURE,BACTERIAL FINAL 08/06/20 11:12 NO SIGNIFICANT GROWTH. [facility] [employer] Work Phone: GC + CHLAMYDIA BY AMPLIFIED DETECTIONon 08-05-2020 Lab Specimen Source Urine Normal [facility] Comment on above: Performed By: #### [facility] #### [facility] [address] [place] [address] GC + Chlamydia By Amplified Detectionon 08-05-2020 C. trachomatis rRNA PEMA+probe Ql (Unsp spec) Negative Negative [place] [address] [employer] Work Phone: N. gonorrhoeae rRNA PEMA+probe Ql (Unsp spec) Negative Negative [place] [address] [place] Work Phone: Comment on above: SOURCE: Urine HIV 1/2 ANTIGEN/ANTIBODY SCR EEN WITH REFLEX TO CONFIRMATIONon 08-05-2020 HIV 1+2 Ab+HIV1 p24 Ag IA Ql NONREACTIVE See Below [facility] TechnologiesB[facility] [employer] Work Phone: Comment on above: SOURCE: Reference Ra nge: NONREACTIVE HIV Ag/Ab screen is performed using the Siemens CloudFabllYoopies HIV Ag/Ab Combo assay which detects the presence of HIV p24 antigen as well as antibodies to HIV-1 (Group M and O) and HIV-2. Hematologyon 08-05-2020 ABO group Nom (Bld) O [facility]ApplyfulB[facility] [employer] Work Phone: Blood group antibody screen Ql Negative [facility] [employer] Work Phone: Hematocrit (Bld) [Volume fraction] 40.4 % See Below [facility] TechnologiesB[facility] [employer] Work Phone: Comment on above: Reference Range: 36. 0 - 46.0 Hemoglobin (Bld) [Mass/Vol] 13.8 g/dL See Below [facility] [employer] Work Phone: Comment on above: Reference Range: 12. 0 - 16.0 MCV (RBC) [Entitic vol] 94 fL 80 - 100 [facility] Work Phone: Platelets (Bld) [#/Vol] 285 {x10E9/L} 150 - 450 [facility]Apply[facility] [employer] Work Phone: RBC (Bld) [#/Vol] 4.27 {x10E12/L} See Below [facility]Apply[facility] [employer] Work Phone: Comment on above: Reference Range: 4.0 0 - 5.20 Rh immune globulin screen (Bld) [Interp] Positive [facility] [facility] [employer] Work Phone: WBC (Bld) [#/Vol] 11.2 {x10E9/L} 4.4 - 11.3 [facility] [place] [address] [employer] Work Phone: Hepatitis B Surface Antigeno n 08-05-2020 Hepatitis B Surface Antigen NONREACTIVE See Below [facility] [place] [address] [employer] Work Phone: Comment on above: SOURCE: Reference Ra nge: NONREACTIVE Biotin interference may cause falsely decreased results. Patients taking a Biotin dose of up to 5 mg/day should refrain from taking Biotin for 24 hours before sample collection. Providers may contact their local laboratory for further information. SOURCE: Reference Ra nge: NONREACTIVE Results from patients taking biotin supplements or receiving high-dose biotin therapy should be interpreted with caution due to possible interference with this test. Providers may contact their local laboratory for further information. Imm/Pathon 08-05-2020 Cytology report Cyto stain.thin prep Doc (Cvx/Vag) ADDENDUMAccession #: [id number] Date of Procedure: 08/05/2020 Pathologist: YUE LOBOate Reported: 08/15/2020ate Received: 08/05/2020ubmitting Physician: RJ HATCH MD FINAL CYTOLOGICAL INTERPRETATIONSquamo us and/or Glandular AbnormalityA. THINPREP PAP CERVICAL: Specimen adequacy: SATISFACTORY FOR EVALUATION. Quality Indicator: Endocervical/transformat ion zone component is present. General Categorization: EPITHELIAL CELL ABNORMALITY - SQUAMOUS CELL. See Interpretation. Descriptive Interpretation: ATYPICAL SQUAMOUS CELLS OF UNDETERMINED SIGNIFICANCE (ASC-US) - CERVIX. Ancillary Testing: An addendum report will follow pending the HPV - Including Genotypetesting performed by the Molecular Diagnostics Laboratory at [facility]. This specimen has been analyzed by the Solaris Solar HeatingPrep Imaging System ([employer]an automated imaging and review system, which assists the laboratory inevaluating cells on ThinPrep Pap tests. Following automated imaging, selectedfields from every slide were reviewed by a client program manager and/or pathologist.Electronical ly Signed Out By NIKOLE PRIDE MD/AARON/AMY By the signature on this report, the individual or group listed as making theFinal Interpretation/Diagnosis certifies that they have reviewed this case.Educational Note:Cervical cytology is a screening procedure primarily for squamous cancers andprecursors and has associated false-negative and false-positive results asevidenced by published data. Your patient's test should be interpreted in thiscontext, together with patient's history and clinical findings. Regularsampling and follow-up of unexplained clinical signs and symptoms arerecommended to minimize false negative results. Clinical HistoryDate of Last Menstrual Period: 05/07/2020Other Clinical Conditions:HPV Reflex for ASC-US only - Include HPV Genotype AnnualClinical Diagnosis History: Encounter for Papanicolaou smear of cervix -(Z12.4) Source of SpecimenA: THINPREP PAP CERVICAL Addendum/Procedures:1 HPV Addendum Date Ordered: 08/15/2020 Status: Signed Out Date Complete: 08/16/2020 Date Reported: 08/16/2020 Addendum DiagnosisHIGH RISK HPV TEST RESULT: HPV GENOTYPE 16 NEGATIVEHPV GENOTYPE 18 NEGATIVEHPV GENOTYPE OTHER NEGATIVEReference Range: NegativeTesting for high-risk (HR) type of human papilloma virus (HPV) is performed bythe Corinne candelario HPV Test. The candelario HPV Test is a qualitative polymerase chainreaction that amplifies DNA of HPV16, HPV18 and 12 other high-risk HPV types(31, 33, 35, 39, 45, 51, 52, 56, 58, 59, 66, and 68) associated with cervicalcancer and its precursor lesions. A positive result indicates the presence ofHPV DNA due to one or more of the 14 genotypes: 16, 18, 31, 33, 35, 39, 45, 51,52, 56, 58, 59, 66, and 68. Negative results indicate HPV DNA concentrationsare undetectable or below the pre-set threshold for detection. False negativeresults may be associated with unoptimized sampling. A negative HR HPV resultdoes not exclude the possibility of future cytologic HSIL or underlying CIN2-3or cancer.This test is approved for cervical specimens by the [place] Food and DrugAdministration. Results of this test should be interpreted in conjunction withthe patient's Pap test results. Please refer to ASCCP current guidelines forthe use of HPV DNA testing, result interpretation, and patient management. The performance of this test was verified by the Molecular DiagnosticLaboratory at [facility]. The lab iscertified under the Clinical Laboratory Amendments of 1988 (CLIA 88) asqualified to perform high complexity clinical laboratory testing. Electronically Signed Out By ARELY HUMMEL MD/Howard the signature on this report, the individual or group listed as making theFinal Interpretation/Diagnosis certifies that they have reviewed this case. [facility] RehabilitationDepartment [facility] [id number] [place] [address]-A [employer] Work Phone: Otheron 08-05-2020 Erythrocyte distribution width (RBC) [Ratio] 12.7 % See Below [facility] CenterSmart [facility] [employer] Work Phone: Comment on above: Reference Range: 11. 5 - 14.5 MCHC (RBC) [Mass/Vol] 34.3 g/dL See Below [facility] center[facility] [employer] Work Phone: Comment on above: Reference Range: 32. 0 - 36.0 NONE [facility] [employer] Work Phone: Rubella IgG Antibodyon 08-05 Rubella virus IgG IA Ql Positive [facility] [employer] Work Phone: Comment on above: SOURCE: INTERPRETATI VE COMMENT NEGATIVE: No IgG antibodies specific to Rubella detected. It is likely that the patient has not had a previous exposure to Rubella through infection or vaccination. Alternatively, the patient may have been exposed to Rubella but a failure to respond may indicate immunodeficiency. EQUIVOCAL:Equivocal results; obtain additional sample for retesting. POSITIVE: IgG antibody to Rubella detected. This may indicate that the patient was exposed to Rubella through infection or vaccination.The interpretation of serological tests should take into accountthe immunological status of the patient. Test results forpatients, including immunocompromised patients, neonates, andpediatric patients, reflect their capacity to respondimmunologically to the virus as well as their exposure to thepathogen. Patients treated with IVIG may demonstrate alteredresults in serological assays. SYPHILIS SCREENING WITH REFL EXon 08-05-2020 Lab Specimen Source Normal [facility] Comment on above: Performed By: #### S [facility] ####[id number] [place] [address] Performed By: #### H CVAB ####[id number] [place] [address] Performed By: #### V ERAB #### [address] [address] T. pallidum IgG+IgM IA Ql (S) NONREACTIVE See Below [address] Work Phone: Comment on above: SOURCE: Reference Ra nge: NONREACTIVENo significant level of Treponema pallidum antibody detected. Repeat testing in 2 to 4 weeks may be considered if early infection or incubating syphilis infection is suspected. TYPE + SCREENon 08-05-2020 RH TYPE Positive Normal [facility] Comment on above: Order Comment: TEST TYPE + SCREEN WAS CANCELLED, 08/05/2020 11:17 DUPLICATE ORDER. Performed By: #### V ERAB #### [address] [address] URINE CULTURE,BACTERIALon URINE CULTURE,BACTERIAL PATIENT: CANDI MOYA LOCATION: [facility]#: [id number] : 88 AGE: SEX: F ORDERED BY: RJ HATCH SOURCE: URINE COLLECTED: 08/05/20 08:48 ANTIBIOTICS AT SHARON.: RECEIVED : 08/05/20 17:46 SITE: Clean Catch/Voided R E S U L T S URINE CULTURE,BACTERIAL FINAL 08/06/20 11:12 NO SIGNIFICANT GROWTH. Normal [facility] Comment on above: Performed By: #### V ERAB #### [address] [address] [employer] US BREAST LTD LTon 04-13 [employer] US BREAST LTD LT * * *Final Report* * * DATE OF EXAM: Apr 13 2019 12:54PM LDW [id number] - [employer] US BREAST LTD LT / PROCEDURE REASON: Breast lump on left side at 2 o'clock position * * * * Physician Interpretation * * * * #[id number] - [facility] US BREAST LTD LT LIMITED ULTRASOUND OF LEFT BREAST: 04/13/2019 CLINICAL: Breast Lump On Left Side At 2 O'Clock Position. No prior exams were available for comparison. Color flow and real-time ultrasound of the left breast 2 o'clock region were performed. Truong scale images of the real-time examination were reviewed. No suspicious solid or cystic masses are seen at the 2 o'clock position 3 cm from the nipple to correlate with the reported palpable finding. IMPRESSION: BENIGN There is no sonographic evidence of malignancy. There is no abnormality seen in the left breast to correspond with the palpable abnormality at 2 o'clock, however, clinical correlation and clinical followup are recommended. Neyda baron/woody:04/13/2019 18:10:21 Turkish Line Attendant(s): Brittaney Sanabria RDMS, [facility] Ultrasound BI-RADS: 2 Benign Certified Welding Inspector: Woody Transcribe Date/Time: Apr 13 2019 12:17P Dictated by : NEYDA WHITTEN MD This examination was interpreted and the report reviewed and electronically signed by: NEYDA WHITTEN MD on Apr 13 2019 6:10PM EST Normal [facility] HPV High Riskon 04-12-2019 HPV High Risk SEE BELOW Normal [facility] Comment on above: Result Comment: HPV HighRisk Type 16 SEE BELOW Negative for HPV DNA high risk type 16 by PCR. HPV HighRisk Type 18 SEE BELOW Negative for HPV DNA high risk type 18 by PCR. HPV HighRisk Other SEE BELOW Negative for HPV DNA high risk types: 31,33,35,39,45,51,52,56,58,59,66,68 by PCR. This test was developed and its performance characteristics determined by [facility]'s Maury JCristian [facility] Pathology and [facility] [place] ([facility]). It has not been cleared or approved by the FDA. [facility] is regulated under CLIA as qualified to perform high-complexity testing. This test is used for clinical purposes. It should not be regarded as investigational or for research. Performing Laboratory: [facility] [employer] [address] [place] [address] Performed By: #### H PVRX #### [place] [address] HPV High Riskon 04-10-2019 Cytology Normal [facility] Comment on above: Performed By: #### H PVRX #### [facility] [address] [place] [address] Chlam/GC-DNA Amplifiedon Chlam/GC-DNA Amplified Test performed at [facility] See scanned results Normal [facility] Comment on above: Performed By: #### C TGCA #### [place] [address] Cult and Smr Aerobicon 04-05 Cult and Smr Aerobic Test performed at A [facility] Few Normal vaginal clementina. Many Gram positive Organisms. Few Mononuclear cells Few Squamous epithelial cells Normal [facility] Comment on above: Performed By: #### C _AER #### [place] [address] Pap,Cyto Gynon 04-05-2019 Pap,Cyto Neurourologist Test performed at [place] [address] NAME: CANDI MOYA REQUESTING: RANDY BOTELLO CNP SPECIMEN: TP CX REFLEX TO HPV ASCUS/RUBEN Relevant History: LMP: 03/25/2019 REPORT AMENDED FOR: ANCILLARY TESTING Negative for HPV DNA high risk type 16 by PCR. Please see additional report from [facility]. Negative for HPV DNA high risk type 18 by PCR. Please see additional report from [facility]. Negative for HPV DNA high risk types: 31, 33, 35, 39, 45, 51, 52, 56, 58, 59, 66, 68 by PCR. Please see additional report from [facility]. Electronically signed: 04/13/2019 Screened by: VIRIDIANA JULIEN (ASCP) Signed Out by: VIRIDIANA JULIEN (ASCP) SPECIMEN ADEQUACY SATISFACTORY FOR EVALUATION. ENDOCERVICAL/TRANSFORMAT ION ZONE COMPONENTS PRESENT. GENERAL CATEGORIZATION EPITHELIAL CELL ABNORMALITY. INTERPRETATION/RESULT ATYPICAL SQUAMOUS CELLS OF UNDETERMINED SIGNIFICANCE. ANCILLARY TESTING The specimen was sent to [facility] for HPV typing. Results will be issued in a separate report. Electronically signed: 04/07/2019 Screened by: VIRIDIANA JULIEN (ASCP) Signed Out by: KAYLA MEJIA M.D. PATHOLOGIST The Pap test serves as a screening tool for early detection of cervical cancer. The Pap test does not represent a final diagnostic test for cervical cancer. Furthermore, the Pap test was not designed to screen for other malignancies (endometrial, ovarian cancer, etc....). False negatives and false positives have occurred. If clinically indicated, further patient evaluation is recommended. Printed on: April 13, 2019 Page 1 of 1 Normal [facility] Comment on above: Performed By: #### C YTOP #### [place] [id number] Vital Signs Date Time Vital Sign Value Performing Clinician Faci lity 04-10-2025 09:42-0400 Body height 162.56 cm No Primary Care Physician [facility] 04-10-2025 09:41-0400 Body mass index (BMI) [Ratio] 35.9 kg/m2 No Primary Care Physician [facility] 04-10-2025 09:41-0400 Body weight 95.05 kg No Primary Care Physician [facility] 04-10-2025 09:41-0400 Diastolic blood pressure 70 mm[Hg] No Primary Care Physician [facility] 04-10-2025 09:41-0400 Systolic blood pressure 106 mm[Hg] No Primary Care Physician [facility] 04-03-2025 12:57-0400 Body height 162.[address] Roro Troy MD Work Phone: [facility] 04-03-2025 12:57-0400 Body mass index (BMI) [Ratio] 36.3 kg/m2 Dr. Roro Troy MD Work Phone: [facility] 04-03-2025 12:57-0400 Body weight 95.[address] Roro Troy MD Work Phone: [facility] 04-03-2025 12:57-0400 Diastolic blood pressure 70 mm[Hg] Dr. Roro Troy MD Work Phone: [facility] 04-03-2025 12:57-0400 Systolic blood pressure 104 mm[Hg] Dr. Roro Troy MD Work Phone: [facility] 03-21-2025 10:21-0400 Body height 162.56 cm No Primary Care Physician [facility] 03-21-2025 10:19-0400 Body mass index (BMI) [Ratio] 35.9 kg/m2 No Primary Care Physician [facility] 03-21-2025 10:19-0400 Body weight 95.02 kg No Primary Care Physician [facility] 03-21-2025 10:19-0400 Diastolic blood pressure 71 mm[Hg] No Primary Care Physician [facility] 03-21-2025 10:19-0400 Systolic blood pressure 106 mm[Hg] No Primary Care Physician [facility] 03-07-2025 14:18-0400 Body height 162.56 cm No Primary Care Physician [facility] 03-07-2025 14:14-0400 Body mass index (BMI) [Ratio] 35.7 kg/m2 No Primary Care Physician [facility] 03-07-2025 14:14-0400 Body weight 94.51 kg No Primary Care Physician [facility] 03-07-2025 14:14-0400 Diastolic blood pressure 70 mm[Hg] No Primary Care Physician [facility] 03-07-2025 14:14-0400 Systolic blood pressure 108 mm[Hg] No Primary Care Physician [facility] 02-23-2025 14:20-0400 Body height 162.56 cm No Primary Care Physician [facility] 02-23-2025 14:20-0400 Body mass index (BMI) [Ratio] 35.9 kg/m2 No Primary Care Physician [facility] 02-23-2025 14:20-0400 Body weight 94.82 kg No Primary Care Physician [facility] 02-23-2025 14:20-0400 Diastolic blood pressure 69 mm[Hg] No Primary Care Physician [facility] 02-23-2025 14:20-0400 Systolic blood pressure 101 mm[Hg] No Primary Care Physician [facility] 02-06-2025 10:45-0400 Body height 162.56 cm No Primary Care Physician [facility] 02-06-2025 10:45-0400 Body mass index (BMI) [Ratio] 36.8 kg/m2 No Primary Care Physician [facility] 02-06-2025 10:45-0400 Body weight 97.52 kg No Primary Care Physician [facility] 02-06-2025 10:42-0400 Body temperature 97.8 [degF] No Primary Care Physician [facility] 02-06-2025 10:42-0400 Respiratory rate 16 /min No Primary Care Physician [facility] 02-06-2025 10:41-0400 Diastolic blood pressure 75 mm[Hg] No Primary Care Physician [facility] 02-06-2025 10:41-0400 Heart rate 103 /min No Primary Care Physician [facility] 02-06-2025 10:41-0400 Systolic blood pressure 144 mm[Hg] No Primary Care Physician [facility] 02-06-2025 09:59-0400 Body height 162.56 cm No Primary Care Physician [facility] 02-06-2025 09:59-0400 Body mass index (BMI) [Ratio] 36.2 kg/m2 No Primary Care Physician [facility] 02-06-2025 09:59-0400 Body weight 95.73 kg No Primary Care Physician [facility] 02-06-2025 09:59-0400 Diastolic blood pressure 69 mm[Hg] No Primary Care Physician [facility] 02-06-2025 09:59-0400 Systolic blood pressure 119 mm[Hg] No Primary Care Physician [facility] 01-16-2025 13:51-0400 Body height 162.56 cm No Primary Care Physician [facility] 01-16-2025 13:43-0400 Body mass index (BMI) [Ratio] 35.9 kg/m2 No Primary Care Physician [facility] 01-16-2025 13:43-0400 Body weight 95.02 kg No Primary Care Physician [facility] 01-16-2025 13:43-0400 Diastolic blood pressure 60 mm[Hg] No Primary Care Physician [facility] 01-16-2025 13:43-0400 Systolic blood pressure 98 mm[Hg] No Primary Care Physician [facility] 12-19-2024 10:52-0400 Body height 162.56 cm No Primary Care Physician [facility] 12-19-2024 10:52-0400 Body mass index (BMI) [Ratio] 35.6 kg/m2 No Primary Care Physician [facility] 12-19-2024 10:52-0400 Body weight 94.12 kg No Primary Care Physician [facility] 12-19-2024 10:52-0400 Diastolic blood pressure 70 mm[Hg] No Primary Care Physician [facility] 12-19-2024 10:52-0400 Systolic blood pressure 104 mm[Hg] No Primary Care Physician [facility] 11-22-2024 15:00-0400 Body height 162.56 cm No Primary Care Physician [facility] 11-22-2024 15:00-0400 Body mass index (BMI) [Ratio] 35.6 kg/m2 No Primary Care Physician [facility] 11-22-2024 15:00-0400 Body weight 94.12 kg No Primary Care Physician [facility] 11-22-2024 15:00-0400 Diastolic blood pressure 75 mm[Hg] No Primary Care Physician [facility] 11-22-2024 15:00-0400 Systolic blood pressure 113 mm[Hg] No Primary Care Physician [facility] 10-24-2024 15:27-0400 Body mass index (BMI) [Ratio] 35.4 kg/m2 No Primary Care Physician [facility] 10-24-2024 15:27-0400 Body weight 93.55 kg No Primary Care Physician [facility] 10-24-2024 15:27-0400 Diastolic blood pressure 76 mm[Hg] No Primary Care Physician [facility] 10-24-2024 15:27-0400 Systolic blood pressure 110 mm[Hg] No Primary Care Physician [facility] 09-22-2024 14:25-0400 Body height 162.56 cm No Primary Care Physician [facility] 09-22-2024 14:25-0400 Body mass index (BMI) [Ratio] 35.5 kg/m2 No Primary Care Physician [facility] 09-22-2024 14:25-0400 Body weight 94 kg No Primary Care Physician [facility] 09-22-2024 14:25-0400 Diastolic blood pressure 79 mm[Hg] No Primary Care Physician [facility] 09-22-2024 14:25-0400 Systolic blood pressure 126 mm[Hg] No Primary Care Physician [facility] 08-21-2023 12:24-0500 Body temperature 98.2 [degF] No Primary Care Physician [facility] 08-21-2023 12:24-0500 Diastolic blood pressure 71 mm[Hg] No Primary Care Physician [facility] 08-21-2023 12:24-0500 Heart rate 100 /min No Primary Care Physician [facility] 08-21-2023 12:24-0500 Respiratory rate 14 /min No Primary Care Physician [facility] 08-21-2023 12:24-0500 SaO2% (BldA) [Mass fraction] 99 % No Primary Care Physician [facility] 08-21-2023 12:24-0500 Systolic blood pressure 116 mm[Hg] No Primary Care Physician [facility] 08-21-2023 04:12-0500 Body height 162.56 cm No Primary Care Physician [facility] 08-21-2023 04:12-0500 Body mass index (BMI) [Ratio] 36.3 kg/m2 No Primary Care Physician [facility] 08-21-2023 04:12-0500 Body weight 96.2 kg No Primary Care Physician [facility] 08-19-2023 13:09-0500 Diastolic blood pressure 77 mm[Hg] No Primary Care Physician [facility] 08-19-2023 13:09-0500 Systolic blood pressure 126 mm[Hg] No Primary Care Physician [facility] 08-19-2023 12:57-0500 Body mass index (BMI) [Ratio] 34.3 kg/m2 No Primary Care Physician [facility] 08-19-2023 12:57-0500 Body weight 90.71 kg No Primary Care Physician [facility] 08-13-2023 16:16-0500 Body mass index (BMI) [Ratio] 36.1 kg/m2 No Primary Care Physician [facility] 08-13-2023 16:16-0500 Body weight 95.48 kg No Primary Care Physician [facility] 08-13-2023 16:16-0500 Diastolic blood pressure 70 mm[Hg] No Primary Care Physician [facility] 08-13-2023 16:16-0500 Systolic blood pressure 108 mm[Hg] No Primary Care Physician [facility] 08-06-2023 16:01-0500 Body mass index (BMI) [Ratio] 36.1 kg/m2 No Primary Care Physician [facility] 08-06-2023 16:01-0500 Body weight 95.36 kg No Primary Care Physician [facility] 08-06-2023 16:01-0500 Diastolic blood pressure 69 mm[Hg] No Primary Care Physician [facility] 08-06-2023 16:01-0500 Systolic blood pressure 116 mm[Hg] No Primary Care Physician [facility] 07-30-2023 15:13-0500 Body mass index (BMI) [Ratio] 35.9 kg/m2 No Primary Care Physician [facility] 07-30-2023 15:13-0500 Body weight 95.02 kg No Primary Care Physician [facility] 07-30-2023 15:13-0500 Diastolic blood pressure 86 mm[Hg] No Primary Care Physician [facility] 07-30-2023 15:13-0500 Systolic blood pressure 123 mm[Hg] No Primary Care Physician [facility] 07-16-2023 15:20-0500 Body mass index (BMI) [Ratio] 35.9 kg/m2 No Primary Care Physician [facility] 07-16-2023 15:20-0500 Body weight 94.85 kg No Primary Care Physician [facility] 07-16-2023 15:20-0500 Diastolic blood pressure 74 mm[Hg] No Primary Care Physician [facility] 07-16-2023 15:20-0500 Systolic blood pressure 113 mm[Hg] No Primary Care Physician [facility] 07-02-2023 16:12-0500 Body mass index (BMI) [Ratio] 35.4 kg/m2 No Primary Care Physician [facility] 07-02-2023 16:12-0500 Body weight 93.61 kg No Primary Care Physician [facility] 07-02-2023 16:12-0500 Diastolic blood pressure 73 mm[Hg] No Primary Care Physician [facility] 07-02-2023 16:12-0500 Systolic blood pressure 106 mm[Hg] No Primary Care Physician [facility] 06-14-2023 15:37-0500 Body mass index (BMI) [Ratio] 35.2 kg/m2 No Primary Care Physician [facility] 06-14-2023 15:37-0500 Body weight 93.04 kg No Primary Care Physician [facility] 06-14-2023 15:37-0500 Diastolic blood pressure 67 mm[Hg] No Primary Care Physician [facility] 06-14-2023 15:37-0500 Systolic blood pressure 119 mm[Hg] No Primary Care Physician [facility] 06-04-2023 11:20-0500 Body height 162.56 cm No Primary Care Physician [facility] 06-04-2023 11:13-0500 Body mass index (BMI) [Ratio] 34.8 kg/m2 No Primary Care Physician [facility] 06-04-2023 11:13-0500 Body weight 92.07 kg No Primary Care Physician [facility] 06-04-2023 11:13-0500 Diastolic blood pressure 68 mm[Hg] No Primary Care Physician [facility] 06-04-2023 11:13-0500 Systolic blood pressure 114 mm[Hg] No Primary Care Physician [facility] 05-18-2023 14:32-0500 Body mass index (BMI) [Ratio] 34.8 kg/m2 No Primary Care Physician [facility] 05-18-2023 14:32-0500 Body weight 92.13 kg No Primary Care Physician [facility] 05-18-2023 14:32-0500 Diastolic blood pressure 74 mm[Hg] No Primary Care Physician [facility] 05-18-2023 14:32-0500 Systolic blood pressure 116 mm[Hg] No Primary Care Physician [facility] 04-13-2023 10:49-0400 Body weight 89.81 kg No Primary Care Physician [facility] 04-13-2023 10:49-0400 Diastolic blood pressure 70 mm[Hg] No Primary Care Physician [facility] 04-13-2023 10:49-0400 Systolic blood pressure 110 mm[Hg] No Primary Care Physician [facility] 04-13-2023 10:09-0400 Body height 162.56 cm No Primary Care Physician [facility] 03-17-2023 12:15-0400 Body mass index (BMI) [Ratio] 34 kg/m2 No Primary Care Physician [facility] 03-17-2023 11:29-0400 Body mass index (BMI) [Ratio] 33.7 kg/m2 No Primary Care Physician [facility] 03-17-2023 11:29-0400 Body weight 89.07 kg No Primary Care Physician [facility] 03-17-2023 11:29-0400 Diastolic blood pressure 68 mm[Hg] No Primary Care Physician [facility] 03-17-2023 11:29-0400 Systolic blood pressure 108 mm[Hg] No Primary Care Physician [facility] 02-19-2023 10:56-0400 Body height 162.56 cm No Primary Care Physician [facility] 02-19-2023 10:51-0400 Body mass index (BMI) [Ratio] 33.5 kg/m2 No Primary Care Physician [facility] 02-19-2023 10:51-0400 Body weight 88.62 kg No Primary Care Physician [facility] 02-19-2023 10:51-0400 Diastolic blood pressure 83 mm[Hg] No Primary Care Physician [facility] 02-19-2023 10:51-0400 Systolic blood pressure 121 mm[Hg] No Primary Care Physician [facility] 01-21-2023 13:03-0400 Body mass index (BMI) [Ratio] 33.3 kg/m2 No Primary Care Physician [facility] 01-21-2023 13:03-0400 Body weight 87.99 kg No Primary Care Physician [facility] 01-21-2023 13:03-0400 Diastolic blood pressure 80 mm[Hg] No Primary Care Physician [facility] 01-21-2023 13:03-0400 Systolic blood pressure 116 mm[Hg] No Primary Care Physician [facility] 08-20-2021 13:58-0500 Body height 162.56 cm Randy Botello Work Phone: [employer] Work Phone: 08-20-2021 13:58-0500 Body mass index (BMI) [Ratio] 32.62 kg/m2 Randy Botello Work Phone: [email or web address] Work Phone: 08-20-2021 13:58-0500 Body surface area Derived from formula 1.91 m2 Randy Botello Work Phone: [place] [address] Work Phone: 08-20-2021 13:58-0500 Body temperature 97.8 [degF] Randy Botello Work Phone: [place] [address] Work Phone: 08-20-2021 13:58-0500 Body weight 86.2 kg Randy Botello Work Phone: [place] [address] Work Phone: 08-20-2021 13:58-0500 Diastolic blood pressure 68 mm[Hg] Randy Botello Work Phone: [place] [address] [employer] Work Phone: 08-20-2021 13:58-0500 Systolic blood pressure 114 mm[Hg] Randy Botello Work Phone: [place] [address] Work Phone: 03-04-2021 13:37-0400 Body height 162.56 cm Randy Botello Work Phone: [place] [address] Work Phone: 03-04-2021 13:37-0400 Body mass index (BMI) [Ratio] 32.2 kg/m2 Randy Botello Work Phone: [place] [address] Work Phone: 03-04-2021 13:37-0400 Body surface area Derived from formula 1.9 m2 Randy Botello Work Phone: [place] [address] Work Phone: 03-04-2021 13:37-0400 Body temperature 98.2 [degF] Randy Botello Work Phone: [place] [address] Work Phone: 03-04-2021 13:37-0400 Body weight 85.1 kg Randy Maryjo Nerissa Work Phone: [place] [address] Work Phone: 03-04-2021 13:37-0400 Diastolic blood pressure 66 mm[Hg] Randy Maryjo Nerissa Work Phone: [place] [address] Work Phone: 03-04-2021 13:37-0400 Systolic blood pressure 110 mm[Hg] Randy Maryjo Nerissa Work Phone: [place] [address] Work Phone: 02-18-2021 11:08-0400 Body height 162.56 cm Randy Maryjo Nerissa Work Phone: [place] [address] Work Phone: 02-18-2021 11:08-0400 Body mass index (BMI) [Ratio] 31.96 kg/m2 Randy Maryjo Nerissa Work Phone: [place] [address] Work Phone: 02-18-2021 11:08-0400 Body surface area Derived from formula 1.9 m2 Randy Maryjo Nerissa Work Phone: [place] [address] Work Phone: 02-18-2021 11:08-0400 Body temperature 97.3 [degF] Randy Maryjo Nerissa Work Phone: [place] [address] Work Phone: 02-18-2021 11:08-0400 Body weight 84.46 kg Randy Maryjo Nerissa Work Phone: [place] [address] Work Phone: 02-18-2021 11:08-0400 Diastolic blood pressure 68 mm[Hg] Randy M Nerissa Work Phone: [place] [address] [employer] Work Phone: 02-18-2021 11:08-0400 Systolic blood pressure 108 mm[Hg] Randy Botello Work Phone: [place] [address] Work Phone: 02-07-2021 12:29-0400 Body temperature 98.24 [degF] Randy Nerissa Other Phone: [facility] 02-07-2021 12:29-0400 Diastolic blood pressure 82 mm[Hg] Randy Nerissa Other Phone: [facility] 02-07-2021 12:29-0400 Heart rate 93 /min Randy Nerissa Other Phone: [facility] 02-07-2021 12:29-0400 Respiratory rate 16 /min Randy Duffyel Other Phone: [facility] 02-07-2021 12:29-0400 SaO2% (BldA) [Mass fraction] 97 % Randy Nerissa Other Phone: [facility] 02-07-2021 12:29-0400 Systolic blood pressure 118 mm[Hg] Randy Nerissa Other Phone: [facility] 01-29-2021 08:39-0400 Body height 162.56 cm Randy Botello Work Phone: [place] [address] [employer] Work Phone: 01-29-2021 08:39-0400 Body mass index (BMI) [Ratio] 34.44 kg/m2 Randy Maryjo Nerissa Work Phone: [place] [address] [employer] Work Phone: 01-29-2021 08:39-0400 Body surface area Derived from formula 1.96 m2 Randy Maryjo Nerissa Work Phone: [place] [address] Work Phone: 01-29-2021 08:39-0400 Body temperature 96.9 [degF] Randy Botello Work Phone: [place] [address] Work Phone: 01-29-2021 08:39-0400 Body weight 91 kg Randy Botello Work Phone: [place] [address] Work Phone: 01-29-2021 08:39-0400 Diastolic blood pressure 72 mm[Hg] Randy Botello Work Phone: [place] [address] Work Phone: 01-29-2021 08:39-0400 Systolic blood pressure 102 mm[Hg] Randy Botello Work Phone: [place] [address] Work Phone: 01-21-2021 08:51-0400 Body height 162.56 cm Randy Botello Work Phone: [place] [address] Work Phone: 01-21-2021 08:51-0400 Body mass index (BMI) [Ratio] 34.55 kg/m2 Randy Botello Work Phone: [place] [address] Work Phone: 01-21-2021 08:51-0400 Body surface area Derived from formula 1.96 m2 Randy Duffyel Work Phone: [place] [address] Work Phone: 01-21-2021 08:51-0400 Body temperature 96.8 [degF] Randy Duffyel Work Phone: [place] [address] Work Phone: 01-21-2021 08:51-0400 Body weight 91.3 kg Randy Botello Work Phone: [place] [address] Work Phone: 01-21-2021 08:51-0400 Diastolic blood pressure 70 mm[Hg] Randy Duffyel Work Phone: [place] [address] Work Phone: 01-21-2021 08:51-0400 Systolic blood pressure 112 mm[Hg] Randy Maryjo Duffyel Work Phone: [place] [address] Work Phone: 01-14-2021 08:51-0400 Body height 162.56 cm Randy Botello Work Phone: [place] [address] Work Phone: 01-14-2021 08:51-0400 Body mass index (BMI) [Ratio] 33.87 kg/m2 Randy Botello Work Phone: [place] [address] Work Phone: 01-14-2021 08:51-0400 Body surface area Derived from formula 1.94 m2 Randy Botello Work Phone: [place] [address] Work Phone: 01-14-2021 08:51-0400 Body temperature 96.8 [degF] Randy Duffyel Work Phone: [place] [address] Work Phone: 01-14-2021 08:51-0400 Body weight 89.5 kg Randy Duffyel Work Phone: [place] [address] Work Phone: 01-14-2021 08:51-0400 Diastolic blood pressure 70 mm[Hg] Randy Maryjo Nerissa Work Phone: [place] [address] [employer] Work Phone: 01-14-2021 08:51-0400 Systolic blood pressure 110 mm[Hg] Randy Botello Work Phone: [place] [address] [employer] Work Phone: 12-31-2020 08:34-0400 Body height 162.56 cm Randy Botello Work Phone: [place] [address] [employer] Work Phone: 12-31-2020 08:34-0400 Body mass index (BMI) [Ratio] 33.6 kg/m2 Randy Botello Work Phone: [place] [address] [employer] Work Phone: 12-31-2020 08:34-0400 Body surface area Derived from formula 1.94 m2 Randy Botello Work Phone: [place] [address] [employer] Work Phone: 12-31-2020 08:34-0400 Body temperature 97.5 [degF] Randy Botello Work Phone: [place] [address] [employer] Work Phone: 12-31-2020 08:34-0400 Body weight 88.8 kg Randy Botello Work Phone: [place] [address] [employer] Work Phone: 12-31-2020 08:34-0400 Diastolic blood pressure 68 mm[Hg] Randy Botello Work Phone: [place] [address] [employer] Work Phone: 12-31-2020 08:34-0400 Systolic blood pressure 112 mm[Hg] Randy Duffyel Work Phone: [place] [address] [employer] Work Phone: 12-17-2020 08:43-0400 Body height 162.56 cm Randy Botello Work Phone: [place] [address] Work Phone: 12-17-2020 08:43-0400 Body mass index (BMI) [Ratio] 33.38 kg/m2 Randy Botello Work Phone: [place] [address] Work Phone: 12-17-2020 08:43-0400 Body surface area Derived from formula 1.93 m2 Randy Botello Work Phone: [place] [address] Work Phone: 12-17-2020 08:43-0400 Body temperature 97.8 [degF] Randy Botello Work Phone: [place] [address] Work Phone: 12-17-2020 08:43-0400 Body weight 88.2 kg Randy Botello Work Phone: [place] [address] Work Phone: 12-17-2020 08:43-0400 Diastolic blood pressure 72 mm[Hg] Randy Botello Work Phone: [place] [address] Work Phone: 12-17-2020 08:43-0400 Systolic blood pressure 110 mm[Hg] Randy Sibley Nerissa Work Phone: [place] [address] Work Phone: 11-19-2020 08:38-0400 Body height 162.56 cm Randy Duffyel Work Phone: [place] [address] Work Phone: 11-19-2020 08:38-0400 Body mass index (BMI) [Ratio] 32.58 kg/m2 Randy Sibley Nerissa Work Phone: [address] Work Phone: 11-19-2020 08:38-0400 Body surface area Derived from formula 1.91 m2 Randy Botello Work Phone: [place] [address] Work Phone: 11-19-2020 08:38-0400 Body temperature 97.5 [degF] Randy Botello Work Phone: [place] [address] Work Phone: 11-19-2020 08:38-0400 Body weight 86.1 kg Randy Botello Work Phone: [place] [address] Work Phone: 11-19-2020 08:38-0400 Diastolic blood pressure 66 mm[Hg] Randy Botello Work Phone: [place] [address] Work Phone: 11-19-2020 08:38-0400 Systolic blood pressure 112 mm[Hg] Randy Botello Work Phone: [place] [address] Work Phone: 08-05-2020 10:59-0500 BMI (Body Mass Index) 29.93 kg/m2 Randy Botello [facility] [address] Work Phone: 08-05-2020 10:59-0500 Body Temperature 97.1 [degF] Randy Botello [facility] [address] Work Phone: 08-05-2020 10:59-0500 Body weight 79.09 kg Randy Botello [facility] [address] Work Phone: 08-05-2020 10:59-0500 BP Diastolic 72 mm[Hg] Randy Botello [facility] [address] Work Phone: 08-05-2020 10:59-0500 BP Systolic 118 mm[Hg] Randy Yanez-[place] [address] Work Phone: 08-05-2020 10:590500 BSA (Body Surface Area) 1.85 m2 Randy Yanez-[place] [address] Work Phone: 08-05-2020 10:590500 Height 162.56 cm Randy Yanez-[facility] [address] Work Phone: Encounters Encounter Date Encounter Type Care Provider Facility Start: 04-17-2025 End: 04-17-2025 ambulatory No Primary Care Physician Facility[place] Start: 04-10-2025 End: 04-10-[address] Priscilla Gandara DO -[facility] Work Phone: Start: 04-10-2025 End: 04-10-2025 ambulatory No Primary Care Physician -[facility] Start: 04-06-2025 Patient encounter procedure Renetta Hinojosa LOCATOR-C -Ultrasound [facility] Work Phone: Start: 04-06-2025 ambulatory No Primary Car e Physician Facility:[facility] Start: 04-03-2025 Patient encounter procedure Renetta Hinojosa LOCATOR-C -Laboratory Specimen Work Phone: Start: 04-03-2025 End: 04-03-2025 Patient encounter procedure Renetta Hinojosa LOCATOR-C -[facility] Work Phone: Start: 04-03-2025 End: 04-03-[address] Roro Troy MD Work Phone: -[facility] Start: 04-03-2025 End: 04-03-2025 ambulatory No Primary Care Physician Facility:[facility] Start: 03-21-2025 End: 03-21-[address] Roro Troy MD -[facility] Work Phone: Start: 03-21-2025 End: 03-21-2025 ambulatory No Primary Care Physician -[facility] Start: 03-07-2025 End: 03-07-[address] Priscilla Gandara DO -[facility] Work Phone: Start: 03-07-2025 End: 03-07-2025 ambulatory No Primary Care Physician -[facility] Start: 02-23-2025 End: 02-23-2025 Patient encounter procedure Chinyere Covarrubias CNM -[facility] Work Phone: Start: 02-23-2025 End: 02-23-2025 ambulatory No Primary Care Physician [facility] [place] [facility] Start: 02-06-2025 ambulatory Priscilla Gandara Fa cility:[facility] Start: 02-06-2025 Non-patient / Non-visit Dr. Shalom Gandara DO -[facility] Start: 02-06-2025 End: 02-06-2025 Patient encounter procedure Renetta Hinojosa LOCATOR-C -[facility] Work Phone: Start: 02-06-2025 End: 02-06-2025 ambulatory No Primary Care Physician -[facility] Start: 01-16-2025 End: 01-16-2025 Patient encounter procedure Renetta Hinojosa LOCATOR-C -[facility] Work Phone: Start: 01-16-2025 End: 01-16-2025 ambulatory No Primary Care Physician -[facility] Start: 12-26-2024 End: 12-26-2024 ambulatory No Primary Care Physician -Ultrasound [facility] Start: 12-26-2024 End: 12-26-2024 Patient encounter procedure Renetta Hinojosa LOCATOR-C -Ultrasound [facility] Work Phone: Start: 12-26-2024 End: 12-26-2024 ambulatory No Primary Care Physician Facility:[facility] Start: 12-19-2024 End: 12-19-[address] Roro Troy MD -[facility] [place] [facility] Work Phone: Start: 12-19-2024 End: 12-19-2024 ambulatory No Primary Care Physician [facility] Work Phone: Start: 12-08-2024 End: 12-08-2024 ambulatory No Primary Care Physician [facility] Work Phone: Start: 12-08-2024 End: 12-08-[address] Roro Troy MD -[facility] Work Phone: Start: 12-08-2024 End: 12-08-2024 ambulatory No Primary Care Physician Facility:[facility] Start: 11-22-2024 End: 11-22-2024 Patient encounter procedure Sindhu Leblanc CNM -[facility] Work Phone: Start: 11-22-2024 End: 11-22-2024 ambulatory No Primary Care Physician [facility] Work Phone: Start: 10-24-2024 End: 10-24-[address] Roro Troy MD -[facility] Work Phone: Start: 10-24-2024 End: 10-24-2024 ambulatory Roro Troy Facility:[facility] Start: 09-22-2024 End: 09-22-2024 Patient encounter procedure Sindhu Leblanc CNM -[facility] Work Phone: Start: 09-22-2024 End: 09-22-2024 ambulatory No Primary Care Physician [facility] Work Phone: Start: 09-22-2024 End: 09-22-2024 [facility] Start: 08-21-2023 Non-patient / Non-visit No [facility] Physician [facility] Start: 08-21-2023 End: 08-21-2023 Evaluation and management of inpatient No Primary Care Physician [facility] [place] Work Phone: Start: 08-19-2023 End: 08-19-2023 Patient encounter procedure No Primary Care Physician [facility] Work Phone: Start: 08-13-2023 End: 08-13-2023 Patient encounter procedure No Primary Care Physician [facility] [place] [facility] Work Phone: Start: 08-06-2023 End: 08-06-2023 Patient encounter procedure No Primary Care Physician [facility] Work Phone: Start: 08-05-2023 End: 08-05-2023 Patient encounter procedure No Primary Care Physician [facility]-Ultrasound, [facility] Work Phone: Start: 07-30-2023 End: 07-30-2023 Patient encounter procedure No Primary Care Physician [facility] Work Phone: Start: 07-16-2023 End: 07-16-2023 Patient encounter procedure No Primary Care Physician [facility] [place] [facility] Work Phone: Start: 07-02-2023 End: 07-02-2023 Patient encounter procedure No Primary Care Physician [facility] Work Phone: Start: 06-14-2023 End: 06-14-2023 Patient encounter procedure No Primary Care Physician [facility] Work Phone: Start: 06-04-2023 End: 06-04-2023 ambulatory No Primary Care Physician [facility] Work Phone: Start: 06-04-2023 End: 06-04-2023 Patient encounter procedure No Primary Care Physician [facility] Work Phone: Start: 05-18-2023 End: 05-18-2023 Patient encounter procedure No Primary Care Physician [facility] Work Phone: Start: 04-13-2023 End: 04-13-2023 ambulatory No Primary Care Physician [facility] Work Phone: Start: 04-13-2023 End: 04-13-2023 Patient encounter procedure No Primary Care Physician [facility]-Laboratory, Specimen Work Phone: Start: 04-13-2023 End: 04-13-2023 Patient encounter procedure No Primary Care Physician [facility] Work Phone: Start: 03-29-2023 End: 03-29-2023 ambulatory No Primary Care Physician [facility] Work Phone: Start: 03-29-2023 End: 03-29-2023 Patient encounter procedure No Primary Care Physician [facility] Ultrasound Work Phone: Start: 03-17-2023 End: 03-17-2023 Patient encounter procedure No Primary Care Physician [facility] Work Phone: Start: 03-09-2023 End: 03-09-2023 ambulatory No Primary Care Physician [facility] Work Phone: Start: 03-09-2023 End: 03-09-2023 Patient encounter procedure No Primary Care Physician [facility]-Laboratory, OP Pavilion Start: 02-19-2023 End: 02-19-2023 Patient encounter procedure No Primary Care Physician [facility] Work Phone: Start: 01-21-2023 End: 01-21-2023 Patient encounter procedure No Primary Care Physician [facility]-Laboratory, Specimen Work Phone: Start: 01-21-2023 End: 01-21-2023 Patient encounter procedure No Primary Care Physician [facility] Work Phone: Start: 10-05-2022 End: 10-05-2022 ambulatory [facility] Work Phone: Start: 10-05-2022 End: 10-05-2022 Patient encounter procedure [facility]-Laboratory Start: 09-24-2022 End: 09-24-2022 ambulatory [facility] Work Phone: Start: 09-24-2022 End: 09-24-2022 Patient encounter procedure [facility]-Laboratory Start: 09-18-2022 End: 09-18-2022 ambulatory [facility] Work Phone: Start: 09-18-2022 End: 09-18-2022 Patient encounter procedure [facility]-Laboratory Start: 09-16-2022 End: 09-16-2022 ambulatory [facility] Work Phone: Start: 09-16-2022 End: 09-16-2022 Patient encounter procedure [facility]-Ultrasound, [facility] Start: 01-28-2022 Rx Renewal Randy Duffy el Work Phone: [employer] Work Phone: Start: 08-27-2021 Chart Update Randy Duffy el Work Phone: [employer] Work Phone: Start: 08-20-2021 Periodic preventive med est patient 18-39 yrs Randy Botello Work Phone: [employer] Work Phone: Start: 03-04-2021 Patient encounter procedure Randy Botello Work Phone: [employer] Work Phone: Start: 02-18-2021 Postop follow up vis it related to original px Randy Botello Work Phone: [employer] Work Phone: Start: 02-04-2021 End: 02-07-2021 Evaluation and management of inpatient Rj Hatch [id number] Start: 02-03-2021 Chart Update Randy benitez Work Phone: [employer] Work Phone: Start: 01-29-2021 Office outpatient vi sit 15 minutes Randy Botello Work Phone: [employer] Work Phone: Start: 01-21-2021 Office outpatient vi sit 15 minutes Randy Maryjo Nerissa Work Phone: [place] [address] Work Phone: Start: 01-16-2021 Chart Update Randy Sibley Nag el Work Phone: [address] Work Phone: Start: 01-15-2021 Chart Update Randy Maryjo Nag el Work Phone: [address] Work Phone: Start: 01-14-2021 EPVOB, Provider: Rj Hatch, Status: Pen, Time: 8:45 AM Randy Maryjo Nerissa Work Phone: [address] Work Phone: Start: 01-14-2021 Office outpatient vi sit 15 minutes Randy Maryjo Nerissa Work Phone: [address] Work Phone: Start: 01-13-2021 AUDIT Randy Maryjo Nag el Work Phone: [address] Work Phone: Start: 12-17-2020 Office outpatient vi sit 15 minutes Randy Maryjo Nerissa Work Phone: [place] [address] Work Phone: Start: 12-03-2020 Office outpatient vi sit 15 minutes Randy Maryjo Nerissa Work Phone: [place] [address] Work Phone: Start: 11-27-2020 Chart Update Randy Sibley Nag el Work Phone: [place] [address] Work Phone: Start: 11-27-2020 Chart Update Randy M Nag el Work Phone: [employer] Work Phone: Start: 08-05-2020 Patient encounter procedure Randy Botello [employer] Work Phone: Start: 07-10-2020 Patient encounter procedure Randy Botello [email or web address] Work Phone: Cancer cervix - screening done Randy Botello Work Phone: [employer] Work Phone: Comment on above: 08/05/2020: ASC-US, HPV negative; Encounter for gynecological examination (general) (routine) without abnormal findings Randy Botello [place]ape Phone: [email or web address] Phone: Comment on above: 08/05/2020: ASC-US, HPV negative; End: 08-28-2021 Encounter for gynecological examination (general) (routine) without abnormal findings Randy Botello [place] Phone: [email or web address] Phone: Comment on above: 08/20/2021: Negative 08/05/2020: ASC-US, HPV negative; Procedures Date Procedure Procedure Detail Performing Clinician Start: 04-06-2025 Ultrasound scan for growth No Primary Care Physician Start: 02-06-2025 Ultrasonography for biophysical profile without non-stress testing No Primary Care Physician Start: 02-06-2025 Serologic test for syphilis No Primary Care Physician Start: 12-26-2024 Ultrasonography for antepartum monitoring of fetus No Primary Care Physician Start: 12-08-2024 anatomy study No Primary Care Physician Start: 09-22-2024 Hepatitis C antibody measurement No Primary Care Physician Comment on above: Reactive: Presumptiv e evidence of antibodies to HCV. Follow CDC recommendations for supplemental testing.Non-Reactive: Antibodies to HCV were not detected; does not exclude the possibility of exposure to HCVReactive Results are presumptive evidence of antibodies to HCV. Follow CDC recommendations for supplemental testing.Order confirmation testing: HCV Quant by PCR testing - HCVPCR lc#[id number] Non Reactive: < 0.8 Equivocal: >/= 0.8 to < 1.0 Reactive: >/= 1.0The CDC requires that a reactive/equivocal HCV antibody result be sent out for confirmation. HCV Quant by PCR testing. Start: 09-22-2024 Rubella IgG measurement No Primary Care Physician Comment on above: Antibody Result: Int erpretationNon-Reactive: Non- ImmuneReactive: ImmuneThe following results were obtained with the [employer] Rubella IgG assay. Results from assays of other manufacturers cannot be used interchangeably. Start: 09-22-2024 Serologic test for syphilis No Primary Care Physician Start: 09-22-2024 Urine culture No Primar y Care Physician Start: 08-05-2023 Ultrasound scan for growth No Primary Care Physician Start: 04-13-2023 Bacterial nucleic ac id assay No Primary Care Physician Start: 04-13-2023 Chlamydia trachomati s (PCR) No Primary Care Physician Start: 03-29-2023 Ultrasonography in f irst trimester No Primary Care Physician Start: 01-21-2023 Urine culture No Primar y Care Physician Start: 09-16-2022 Transvaginal obstetr ic ultrasonography Start: 02-04-2021 Antibody screen Comment on above: Performed By: #### T +S ####[place] [address] Start: 08-08-2020 Antibody screen Comment on above: Order Comment: TEST TYPE + SCREEN WAS CANCELLED, 08/05/2020 11:17 DUPLICATE ORDER. Performed By: #### V ERAB #### [place] [address] H/O: section Status pos t delivery Randy Botello Other Phone: H/O: section Previous c esarean delivery affecting No Primary Care Physician Comment on above: AOD 9 cm H/O: section Hx success ful (vaginal after ), currently No Primary Care Physician H/O: section Hx success ful (vaginal after ), currently Sindhu Leblanc CNM H/O: section Previous c esarean delivery affecting Dr. Roro Troy MD Comment on above: successful H/O: section Hx success ful (vaginal after ), currently Sindhu Leblanc CNMaryjo H/O: section Hx success ful (vaginal after ), currently Dr. Roro Troy MD H/O: section Hx success ful (vaginal after ), currently Renetta Hillmantings LOCATOR-C H/O: section Hx success ful (vaginal after ), currently Renetta Hinojosa LOCATOR-C H/O: section Hx success ful (vaginal after ), currently Chinyere Covarrubias CNM H/O: section Hx success ful (vaginal after ), currently Dr. Priscilla Gandara DO H/O: section Hx success ful (vaginal after ), currently Dr. Roro Troy MD H/O: section Hx success ful (vaginal after ), currently Renetta Hinojosa LOCATOR-C H/O: section Hx success ful (vaginal after ), currently Dr. Priscilla Gandara DO History of No histor y of surgery Randy Botello No history of surgery Zeferino Botello Work Phone: Plan of Treatment Date Care Activity Detail Author Start: 04-03-2025 Beta-hemolytic Streptococcus culture Group B Streptococcus Culture [facility] Start: 04-03-2025 Group B Streptococcu s Culture Group B Streptococcus Culture [facility] Start: 04-03-2025 Streptococcus agalac tiae [Presence] in Unspecified specimen by Organism specific culture [facility] Start: 02-06-2025 Nonstress test [facility] Start: 02-06-2025 Obstetric monitoring [facility] Start: 02-06-2025 Vital signs measurements [facility] Start: 02-06-2025 CBC W Auto Different ial panel - Blood [facility] Start: 02-06-2025 Measurement of gluco se 2 hours after glucose challenge for glucose tolerance test [facility] Start: 02-06-2025 Serologic test for syphilis [facility] Start: 02-06-2025 End: 02-06-2025 [facility] Start: 02-06-2025 Patient discharge [facility] Start: 08-21-2023 Administration of medication [facility] Start: 08-21-2023 Application of ice collar, cap or bag [facility] Start: 08-21-2023 Catheterization of vein [facility] Start: 08-21-2023 Introduction of urin armond catheter [facility] Start: 08-21-2023 Measuring intake and output [facility] Start: 08-21-2023 Notification of physician [facility] Start: 08-21-2023 Procedure discontinued [facility] Start: 08-21-2023 Provision of activit y privileges [facility] Start: 08-21-2023 Vital signs measurements [facility] Start: 08-21-2023 End: 08-21-2023 [facility] Start: 08-21-2023 Documentation procedure [facility] Start: 08-21-2023 Admission procedure [facility] Start: 08-21-2023 Patient discharge [facility] Start: 08-21-2022 Patient encounter procedure ANNUAL, Provider: Rj Hatch, Status: Pen, [facility]: Start: 08-20-2021 Patient encounter procedure ANNUAL, Provider: Rj Hatch, Status: Pen, Time: 2:00 PM [facility] Work Phone: Start: 03-04-2021 Patient encounter procedure [facility] Start: 03-04-2021 PPV, Provider: Rj Hatch, Status: Pen, Time: 1:30 PM PPV, Provider: Rj Hatch, Status: Pen, Time: 1:30 [facility] Work Phone: Start: 02-05-2021 End: 02-06-2022 HYDROmorphone Injectable 0.2 mg IntraVenous Push Every 4 Hours PRN ; (DILAUDID)DOSE = 0.4 mg IntraVenous Push Every 3 Hours, PRN breakthrough painClinician Notes: Conditional Order: START AFTER [employer]OUR[employer] is discontinued. Start: 05-Feb-2021 End: 05-Feb-2022 Ordered: 04-Feb-2021 Holden, Rj R Intent Comments: Conditional Order: START AFTER JOURNEY[employer] C[employer]TER is discontinued. [facility] Comment on above: Conditional Order: S TART AFTER JOURNEY[employer] ME[employer] C[employer]TER is discontinued. Start: 02-05-2021 End: 02-05-2022 [facility] Comment on above: Consult provider kera or to administration. Push over more than 2 minutes. Systolic greater than or equal to 160 OR Diastolic greater than or equal to 110. Contraindications: active asthma, heart disease, heart failure, maternal bradycardia < 60. Consult provider kera or to administration. Push over more than 2 minutes. Systolic greater than or equal to 160 OR Diastolic greater than or equal to 110. Contraindication: coronary artery disease (CAD); Caution in suspected CAD. Consult provider kera or to administration. Systolic greater than or equal to 160 OR Diastolic greater than or equal to 110. Capsules administered orally and swallowed whole; Do not puncture or crush; Do not administer sublingually. May self-administer after voiding administer if patien t screen is non- immune or equivocal After and PRN Consult provider kera or to administration. Conditional order. C onsult Provider prior to administration. Max dose of 16mg / 2 4 hours Conditional order. 6 00 milliunits/min x 30 mins., then 60 milliunits/min for the remainder of the bag. Consult Provider prior to administration. Start: 02-03-2021 EPVOB, Provider: Rj Hatch, Status: Pen, Time: 9:00 AM EPVOB, Provider: Rj Hatch, Status: Pen, Time: 9:00 AM [employer] Work Phone: Start: 01-29-2021 EPVOB, Provider: Rj Hatch, Status: Pen, Time: 8:30 AM EPVOB, Provider: Rj Hatch, Status: Pen, Time: 8:30 AM [employer] Work Phone: Start: 01-21-2021 EPVOB, Provider: Rj Hatch, Status: Pen, Time: 8:45 AM EPVOB, Provider: Rj Hatch, Status: Pen, Time: 8:45 AM [employer] Work Phone: Start: 12-31-2020 EPVOB, Provider: Rj Hatch, Status: Pen, Time: 8:30 AM EPVOB, Provider: Rj Hatch, Status: Pen, Time: 8:30 [facility] Work Phone: Start: 12-17-2020 EPVOB, Provider: Rj Hatch, Status: Pen, Time: 8:30 AM EPVOB, Provider: Rj Hatch, Status: Pen, Time: 8:30 [facility] Work Phone: Start: 12-03-2020 EPVOB, Provider: Rj Hatch, Status: Pen, Time: 8:30 AM EPVOB, Provider: Rj Hatch, Status: Pen, Time: 8:30 AM [facility] Work Phone: Anti-D (Rh) immunoglobulin [facility] Beta-hemolytic Streptococcus culture [facility] Erythrocyte mean corpuscular volume determination [facility] anatomy study [facility] Hematocrit [Volume Fraction] of Blood [facility] Hemoglobin [Mass/vol ume] in Blood [facility] Leukocytes [#/volume ] in Blood [facility] Mean corpuscular hemoglobin concentration determination [facility] Mean corpuscular hemoglobin determination [facility] Neutrophil count [facility] Neutrophil percent differential count [facility] Patient Education Kick Counts ED False Labor OB Triage: Return to Hospital or Notify Physician if you Experience: [facility] Work Phone: Patient referral [facility] Work Phone: Platelets [#/volume] in Blood [facility] Red blood cell count [facility] Red cell distributio n width determination [facility] Ultrasound scan for growth [facility] Payers Date Payer Category Payer Self-pay 2024 Unknown [id number] 2018 Unknown Unknown [facility] P[facility] [id number] Unknown [id number] 2.16.8 [id number] Unknown [id number] 2.16.8 [id number] Unknown [id number] 2.16.8 40.1.050531.3.579.2.462 Unknown [id number] 2.16.8 40.1.620918.3.579.2.462 Unknown [id number] 2.16.8 40.1.823566.3.579.2.462 Unknown [id number] 2.16.8 40.1.840532.3.579.2.462 Unknown [id number] 2.16.8 40.1.232323.3.579.2.462 Unknown [id number] 2.16.8 40.1.622849.3.579.2.462 Unknown [id number] 2.16.8 40.1.881461.3.579.2.462 Unknown [id number] 2.16.8 40.1.699110.3.579.2.462 Unknown [id number] 2.16.8 40.1.583636.3.579.2.462 Unknown [id number] 2.16.8 40.1.716007.3.579.2.462 Unknown [id number] 2.16.8 40.1.025390.3.579.2.462 Unknown [id number] 2.16.8 40.1.963676.3.579.2.462 Unknown [id number] 2.16.8 40.1.139455.3.579.2.462 Unknown [id number] 2.16.8 40.1.521265.3.579.2.462 Unknown [id number] 2.16.8 40.1.726211.3.579.2.462 Unknown [id number] 2.16.8 40.1.145424.3.579.2.462 Unknown [id number] 2.16.8 40.1.991172.3.579.2.462 Social History Date Type Detail Facility Assertion Tobacco smoking consumption unknown (finding) [place] [address] [employer] Work Phone: Sexually active Sexually active [place] [address] [employer] Phone: Start: 05-18-2022 End: 08-21-2023 Tobacco smoking consumption unknown [facility] Start: 1990 Sex Assigned At Female W [facility] Start: 09-05-2024 Tobacco smoking stat us NHIS Never smoked tobacco (finding) [facility] Start: 09-28-2024 Sex Female (finding) [facility] Sex Female [facility] Goals Date Patient Goal Desired Activity /State Functional Status Date Assessment Result Facility Functional observable [facility] NEGATED: Highlighted row Functional performance Functional status health issues are not documented Disease [place] [address] [employer] Work Phone: Mental Status Date Assessment Result Facility 02-07-2021 Cognitive functi ons 17:11 [facility] NEGATED: Highlighted row Cognitive function [Interpretation] Cognitive status health issues are not documented Disease [place] [address] [employer] Work Phone: Clinical Notes 02-04-2021 to 04-03-2025 Note Date & Type Note Facility 04-03-2025 Progress note [facility] 03-21-2025 Progress note [facility] 02-06-2025 Radiology Diagnostic study note [facility] Imaging Services [address] [place] [address] OB Biophysical Prof W/O NST MR#: [id number] Acct: [id number] Name: CANDI MOYA Rep #: [id number] : 1990 F 34 From: Fran Fonseca MD PCP: Care Physician,No Primary Status: REG CLI Study:OB Biophysical Prof W/O NST Date of Exa m: 02/06/25 Exam# [id number] Ordering Dr: Priscilla Pack DO PROCEDURE: OB BIOPHYSICAL PROF W/O NST 02/06/2025 REASON FOR EXAM: IRREGULAR HEARTRATE TECHNIQUE: OB BIOPHYSICAL PROF W/O NST COMPARISON: None FINDINGS Number: 1 Position: Breech Placental Position: Posterior and fundal in location. Placental Abnormalities: No evidence of previa. Baseline: 28 weeks and 4 days ESTIMATED DATE OF DELIVERY: Baseline: April 27, 2025 BIOPHYSICAL ASSESSMENT: Amniotic Fluid Volume: 4.8 cm Amniotic Fluid Index: 15.6 (8-24 cm normal range) Cardiac Motion: 136 beats per minute (average) Trunk and Limb Motion: Present. Biophysical profile: Breathing movements: 2 Gross body movements: 2 tone: 2 Amniotic fluid volume: 2 Total score: 8/8 US/OB Biophysical Prof W/O NST IMPRESSION: Normal biophysical profile score. Reading Location: [id number] CC: Dr. Priscilla Gandara DO; No Primary Care Physician ~ Certified Welding Inspector: Signed [facility] 12-27-2024 Radiology Diagnostic study note [facility] Imaging Services [address] [place] [address] OB Limited (No Biometrics) MR#: [id number] Acct: [id number] Name: CANDI MOYA Rep #: [id number] : 1990 F 34 From: Fran Fonseca MD PCP: Care Physician,No Primary Status: REG CLI Study:OB Limited (No Biometrics) Date of Exam : 12/26/24 Exam# [id number] Ordering Dr: Renetta Hinojosa LOCATOR LOCATOR-C PROCEDURE: OB LIMITED (NO BIOMETRICS) 12/26/2024 REASON FOR EXAM: SPINE VIEWS TECHNIQUE: OB LIMITED (NO BIOMETRICS) COMPARISON: Prior study dated December 08, 2024. FINDINGS Number: 1 Position: Vertex Placental Position: Fundal and posterior. Placental Abnormalities: No evidence of previa. Cardiac Motion: 152 beats per minute. (Average) Trunk and Limb Motion: Present. Imaging of the spine was obtained. No abnormality is seen. US/OB Limited (No Biometrics) IMPRESSION: Normal visualized spine. Reading Location: [place] CC: MANISHA Hinojosa; No Primary Care Physician ~ Certified Welding Inspector: Signed [facility] 12-19-2024 Evaluation note Diagnosis Onset Date Resolution Advanced maternal age (AMA) in acute December 19 11:24am Factor 5 Leiden mutation, heterozygous acute December 11:24am Hx successful (vaginal after ), currently acute December 19, 2024 11:24am Obesity affecting acute December 19, 2024 11:24am acute December 19 11:24am Previous delivery affecting acute December 19, 2024 11:24am Supervision of high-risk acute December 19, 025 11:24am Susceptible to varicella (non-immune), currently acute December 19 11:24am Advanced maternal age (AMA) in acute January 16 1:36pm Factor 5 Leiden mutation, heterozygous acute January 1:36pm Hx successful (vaginal after ), currently acute January 16, 2025 1:36pm Obesity affecting acute January 16, 2025 1:36pm acute January 16 1:36pm Previous delivery affecting acute January 16, 2025 1:36pm Supervision of high-risk acute January 16 025 1:36pm Susceptible to varicella (non-immune), currently acute January 16 1:36pm Advanced maternal age (AMA) in acute February 06 025 9:37am Factor 5 Leiden mutation, heterozygous acute February 9:37am Hx successful (vaginal after ), currently acute February 06, 2025 9:37am Obesity affecting acute February 06, 2025 9:37am acute February 06 9:37am Previous delivery affecting acute February 06, 2025 9:37am Supervision of high-risk acute February 06, 2025 9:37am Susceptible to varicella (non-immune), currently acute [place] 5th, 2 025 9:37am arrhythmia affecting , antepartum resolved February 06, 2025 9:37am Advanced maternal age (AMA) in acute February 06, 025 9:39am Factor 5 Leiden mutation, heterozygous acute February 9:39am Hx successful (vaginal after ), currently acute February 06, 2025 9:39am Obesity affecting acute February 06, 2025 9:39am acute February 06 9:39am Previous delivery affecting acute February 06, 2025 9:39am Supervision of high-risk acute February 06, 2025 9:39am Susceptible to varicella (non-immune), currently acute February 06, 025 9:39am Breech presentation resolved Aug2024 9:39am arrhythmia affecting , antepartum resolved February 06, 2025 9:39am Advanced maternal age (AMA) in acute February 23, 2025 2:17pm Factor 5 Leiden mutation, heterozygous acute February 232024 2:17pm Hx successful (vaginal after ), currently acute February 23 2:17pm Obesity affecting acute February 23 2:17pm acute February 23, 025 2:17pm Previous delivery affecting acute February 23 2:17pm Supervision of high-risk acute February 23, 2025 2:17pm Susceptible to varicella (non-immune), currently acute February 23, 2025 2:17pm Breech presentation resolved Augus t 2024 2:17pm arrhythmia affecting , antepartum resolved February 23 2:17pm Advanced maternal age (AMA) in acute March 2:12pm Factor 5 Leiden mutation, heterozygous acute March 07, 2025 2:12pm Hx successful (vaginal after ), currently acute March 07, 2 025 2:12pm Obesity affecting acute March 07, 2 025 2:12pm acute March 07, 2025 2:12pm Previous delivery affecting acute March 07, 2 025 2:12pm Supervision of high-risk acute March 2:12pm Susceptible to varicella (non-immune), currently acute March 2:12pm Breech presentation resolved 2024 2:12pm arrhythmia affecting , antepartum resolved March 07 2:12pm Advanced maternal age (AMA) in acute March 9:49am Factor 5 Leiden mutation, heterozygous acute March 21, 2025 9:49am Hx successful (vaginal after ), currently acute March 21, 2025 9:49am Obesity affecting acute March 21, 2025 9:49am acute March 9:49am Previous delivery affecting acute March 21, 2025 9:49am Supervision of high-risk acute March 212024 9:49am Susceptible to varicella (non-immune), currently acute March 9:49am Breech presentation resolved 2024 9:49am arrhythmia affecting , antepartum resolved March 21, 2025 9:49am Advanced maternal age (AMA) in acute March 12:53pm Factor 5 Leiden mutation, heterozygous acute April 03, 2025 12:53pm Hx successful (vaginal after ), currently acute April 03, 2025 12:53pm Obesity affecting acute April 03, 2025 12:53pm acute March 12:53pm Previous delivery affecting acute April 03, 2025 12:53pm Supervision of high-risk acute April 032024 12:53pm Susceptible to varicella (non-immune), currently acute March 12:53pm [facility] Work Phone: 1(895) 253-962106-17-2025 Evaluation note* Diagnosis Onset Date Resolution Status Admit Date Advanced maternal age (AMA) in acute December 19, 2024 11:24am Factor 5 Leiden mutation, heterozygous acute December 19, 2024 11:24am Hx successful (vaginal after ), currently acute December 19 11:24am Obesity affecting acute December 19, 2024 11:24am acute December 19 11:24am Previous delivery affecting acute [place] 17th, 2 025 11:24am Supervision of high-risk acute December 19, 2024 11:24am Susceptible to varicella (non-immune), currently acute December 19, 2024 11:24am Advanced maternal age (AMA) in acute January 16, 2025 1:36pm Factor 5 Leiden mutation, heterozygous acute January 16, 2025 1:36pm Hx successful (vaginal after ), currently acute January 16 1:36pm Obesity affecting acute January 16, 2025 1:36pm acute January 16 1:36pm Previous delivery affecting acute January 16 025 1:36pm Supervision of high-risk acute January 16, 2025 1:36pm Susceptible to varicella (non-immune), currently acute January 16, 2025 1:36pm Advanced maternal age (AMA) in acute February 06, 2025 9:37am Factor 5 Leiden mutation, heterozygous acute February 06, 2025 9:37am Hx successful (vaginal after ), currently acute February 06, 025 9:37am Obesity affecting acute February 06, 2025 9:37am acute February 06 9:37am Previous delivery affecting acute February 06, 2025 9:37am Supervision of high-risk acute February 06, 2025 9:37am Susceptible to varicella (non-immune), currently acute February 06, 2025 9:37am arrhythmia affecting , antepartum resolved February 9:37am Advanced maternal age (AMA) in acute February 06, 2025 9:39am Factor 5 Leiden mutation, heterozygous acute February 06, 2025 9:39am Hx successful (vaginal after ), currently acute February 06, 025 9:39am Obesity affecting acute February 06, 2025 9:39am acute February 06 9:39am Previous delivery affecting acute February 06, 2025 9:39am Supervision of high-risk acute February 06, 2025 9:39am Susceptible to varicella (non-immune), currently acute February 06, 2025 9:39am Breech presentation resolved Augus 2024 9:39am arrhythmia affecting , antepartum resolved February 9:39am Advanced maternal age (AMA) in acute February 23 2:17pm Factor 5 Leiden mutation, heterozygous acute February 23 2:17pm Hx successful (vaginal after ), currently acute February 23, 2025 2:17pm Obesity affecting acute February 23, 2025 2:17pm acute February 23, 025 2:17pm Previous delivery affecting acute February 23, 2025 2:17pm Supervision of high-risk acute February 23 2:17pm Susceptible to varicella (non-immune), currently acute February 23 2:17pm Breech presentation resolved Augus t 2024 2:17pm arrhythmia affecting , antepartum resolved February 2:17pm Advanced maternal age (AMA) in acute March 07, 025 2:12pm Factor 5 Leiden mutation, heterozygous acute March 07 2:12pm Hx successful (vaginal after ), currently acute March 2:12pm Obesity affecting acute March 07, 2025 2:12pm acute March 07, 2025 2:12pm Previous delivery affecting acute March 2:12pm Supervision of high-risk acute March 07, 025 2:12pm Susceptible to varicella (non-immune), currently acute March 07, 025 2:12pm Breech presentation resolved Sept2024 2:12pm arrhythmia affecting , antepartum resolved March 07, 2025 2:12pm Advanced maternal age (AMA) in acute March 21, 2025 9:49am Factor 5 Leiden mutation, heterozygous acute March 21, 2025 9:49am Hx successful (vaginal after ), currently acute March 9:49am Obesity affecting acute March 21, 2025 9:49am acute March 9:49am Previous delivery affecting acute March 212024 9:49am Supervision of high-risk acute March 21, 2025 9:49am Susceptible to varicella (non-immune), currently acute March 21, 2025 9:49am Breech presentation resolved Septe mb2024 9:49am arrhythmia affecting , antepartum resolved March 21, 2025 9:49am Advanced maternal age (AMA) in acute April 03, 2025 12:53pm Factor 5 Leiden mutation, heterozygous acute April 03, 2025 12:53pm Hx successful (vaginal after ), currently acute March 12:53pm Obesity affecting acute April 03, 2025 12:53pm acute March 12:53pm Previous delivery affecting acute April 032024 12:53pm Supervision of high-risk acute April 03, 2025 12:53pm Susceptible to varicella (non-immune), currently acute April 03, 2025 12:53pm Advanced maternal age (AMA) in acute April 10 9:38am Factor 5 Leiden mutation, heterozygous acute April 10 9:38am Hx successful (vaginal after ), currently acute April 10, 2025 9:38am LGA (large for gestational age) fetus acute April 10 9:38am Obesity affecting acute April 10, 2025 9:38am Positive GBS test acute April 10, 2025 9:38am acute April 10, 2 025 9:38am Previous delivery affecting acute April 10, 2025 9:38am Supervision of high-risk acute April 10 9:38am Susceptible to varicella (non-immune), currently acute April 10 9:38am [facility] Work Phone: 1(991) 290-256906-09-2025 Radiology Diagnostic study note [facility] Imaging Services [address] [place] [address] [id number] OB Anatomy Scan MR#: [id number] Acct: [id number] Name: CANDI MOYA Rep #: [id number] : 1990 F 34 From: Karli Mcfadden MD PCP: Care Physician,No Primary Status: REG CLI Study:OB Anatomy Scan Date of Exam: 12/27 Exam# [id number] Ordering Dr: Roro Villafana MD PROCEDURE: OB ANATOMY SCAN 12/08/2024 REASON FOR EXAM: ANATOMY SCAN TECHNIQUE: High resolution obstetric ultrasound performed using a 2D transducer. Standard views obtained, including biometry, anatomy survey, and Doppler studies. FINDINGS Single viable intrauterine fetus in breech presentation. Placenta is fundal, grade 0. No placenta previa. Ultrasound gestational age is 19 weeks and 6 days. ANDREA 04/28/2025. LMP gestational age is 20 weeks 0 day. ANDREA 04/27/2025. cardiac activity is noted. Heart rate is 155 beats per minute. Cervix is closed and measures 3.6 cm. Normal amniotic fluid. DIMENSIONS: Biparietal Diameter: 4.6 cm/20 weeks 1 day Head Circumference: 17.2 cm/19 weeks 6 days Abdominal Circumference: 15.1 cm/20 weeks 2 days Femur Length: 3.1 cm/19 weeks 5 days ESTIMATED WEIGHT: 332 g plus/-50 g ESTIMATED WEIGHT PERCENTILE (24+ weeks): 50.49 ANATOMY: Cerebellum measures 2 cm. Cm measures 0.55 cm. Cervical spine is unremarkable. Thoracic, lumbar and sacrum spine is not fully visualized due to baby's position, follow-up is recommended. Cranium, chest, cardiac, abdomen and pelvis anatomical structures and extremities are visualized and are unremarkable. US/OB Anatomy Scan IMPRESSION: Single viable intrauterine fetus in breech presentation. Concordant growth. Ultrasound gestational age is 19 weeks and 6 days. ANDREA 04/28/2025. LMP gestational age is 20 weeks 0 day. ANDREA 04/27/2025. Limited visualization of the thoracic, lumbar and sacral spine otherwise normal anatomy. Follow-up is advised. Reading Location: [id number] CC: Dr. 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: Signed [facility]05-21-2025 Evaluation note* Diagnosis Onset Date Resolution Status Admit Date Advanced maternal age (AMA) in acute November 22, 2024 2 :51pm Factor 5 Leiden mutation, heterozygous acute November 22, 2024 2 :51pm Hx successful (vaginal after ), currently acute November 22 2:51pm Obesity affecting acute November 22, 2024 2:51pm acute November 22, 2024 2:51pm Previous delivery affecting acute November 22 2:51pm Supervision of high-risk acute November 22, 2024 2 :51pm Susceptible to varicella (non-immune), currently acute November 22, 2024 2 :51pm Advanced maternal age (AMA) in acute December 19, 2024 11:24am Factor 5 Leiden mutation, heterozygous acute December 19, 2024 11:24am Hx successful (vaginal after ), currently acute December 19 11:24am Obesity affecting acute December 19, 2024 11:24am acute December 19 11:24am Previous delivery affecting acute December 19 025 11:24am Supervision of high-risk acute December 19, 2024 11:24am Susceptible to varicella (non-immune), currently acute December 19, 2024 11:24am Advanced maternal age (AMA) in acute January 16, 2025 1:36pm Factor 5 Leiden mutation, heterozygous acute January 16, 2025 1:36pm Hx successful (vaginal after ), currently acute January 16 1:36pm Obesity affecting acute January 16, 2025 1:36pm acute January 16 1:36pm Previous delivery affecting acute January 16, 025 1:36pm Supervision of high-risk acute January 16, 2025 1:36pm Susceptible to varicella (non-immune), currently acute January 16, 2025 1:36pm Advanced maternal age (AMA) in acute February 06, 2025 9:37am Factor 5 Leiden mutation, heterozygous acute February 06, 2025 9:37am arrhythmia affecting , antepartum acute February 9:37am Hx successful (vaginal after ), currently acute February 06, 2 025 9:37am Obesity affecting acute February 06, 2025 9:37am acute February 06 9:37am Previous delivery affecting acute February 06, 2025 9:37am Supervision of high-risk acute February 06, 2025 9:37am Susceptible to varicella (non-immune), currently acute February 06, 2025 9:37am Advanced maternal age (AMA) in acute February 06, 2025 9:39am Breech presentation acute 2024 9:39am Factor 5 Leiden mutation, heterozygous acute February 06, 2025 9:39am arrhythmia affecting , antepartum acute February 9:39am Hx successful (vaginal after ), currently acute February 06, 2 025 9:39am Obesity affecting acute February 06, 2025 9:39am acute February 06 9:39am Previous delivery affecting acute February 06, 2025 9:39am Supervision of high-risk acute February 06, 2025 9:39am Susceptible to varicella (non-immune), currently acute February 06, 2025 9:39am Advanced maternal age (AMA) in acute February 23 2:17pm Breech presentation acute 2024 2:17pm Factor 5 Leiden mutation, heterozygous acute February 23 2:17pm arrhythmia affecting , antepartum acute February 2:17pm Hx successful (vaginal after ), currently acute February 23, 2025 2:17pm Obesity affecting acute February 23, 2025 2:17pm acute February 23, 2 025 2:17pm Previous delivery affecting acute February 23, 2025 2:17pm Supervision of high-risk acute February 23 2:17pm Susceptible to varicella (non-immune), currently acute February 23 2:17pm [facility] Work Phone: 1(896) 504-394205-21-2025 Evaluation note* Diagnosis Onset Date Resolution Status Admit Date Advanced maternal age (AMA) in acute November 22, 2024 2 :51pm Factor 5 Leiden mutation, heterozygous acute November 22, 2024 2 :51pm Hx successful (vaginal after ), currently acute November 22 2:51pm Obesity affecting acute November 22, 2024 2:51pm acute November 22, 2024 2:51pm Previous delivery affecting acute November 22 2:51pm Supervision of high-risk acute November 22, 2024 2 :51pm Susceptible to varicella (non-immune), currently acute November 22, 2024 2 :51pm Advanced maternal age (AMA) in acute December 19, 2024 11:24am Factor 5 Leiden mutation, heterozygous acute December 19, 2024 11:24am Hx successful (vaginal after ), currently acute December 19 11:24am Obesity affecting acute December 19, 2024 11:24am acute December 19 11:24am Previous delivery affecting acute December 19, 025 11:24am Supervision of high-risk acute December 19, 2024 11:24am Susceptible to varicella (non-immune), currently acute December 19, 2024 11:24am Advanced maternal age (AMA) in acute January 16, 2025 1:36pm Factor 5 Leiden mutation, heterozygous acute January 16, 2025 1:36pm Hx successful (vaginal after ), currently acute January 16 1:36pm Obesity affecting acute January 16, 2025 1:36pm acute January 16 1:36pm Previous delivery affecting acute January 16 025 1:36pm Supervision of high-risk acute January 16, 2025 1:36pm Susceptible to varicella (non-immune), currently acute January 16, 2025 1:36pm Advanced maternal age (AMA) in acute February 06, 2025 9:37am Factor 5 Leiden mutation, heterozygous acute February 06, 2025 9:37am arrhythmia affecting , antepartum acute February 9:37am Hx successful (vaginal after ), currently acute February 06, 025 9:37am Obesity affecting acute February 06, 2025 9:37am acute February 06 9:37am Previous delivery affecting acute February 06, 2025 9:37am Supervision of high-risk acute February 06, 2025 9:37am Susceptible to varicella (non-immune), currently acute February 06, 2025 9:37am Advanced maternal age (AMA) in acute February 06, 2025 9:39am Breech presentation acute Aug2024 9:39am Factor 5 Leiden mutation, heterozygous acute February 06, 2025 9:39am arrhythmia affecting , antepartum acute February 9:39am Hx successful (vaginal after ), currently acute February 06, 025 9:39am Obesity affecting acute February 06, 2025 9:39am acute February 06 9:39am Previous delivery affecting acute February 06, 2025 9:39am Supervision of high-risk acute February 06, 2025 9:39am Susceptible to varicella (non-immune), currently acute February 06, 2025 9:39am Advanced maternal age (AMA) in acute February 23 2:17pm Breech presentation acute Augus t 2024 2:17pm Factor 5 Leiden mutation, heterozygous acute February 23 2:17pm arrhythmia affecting , antepartum acute February 2:17pm Hx successful (vaginal after ), currently acute February 23, 2025 2:17pm Obesity affecting acute February 23, 2025 2:17pm acute February 23, 025 2:17pm Previous delivery affecting acute February 23, 2025 2:17pm Supervision of high-risk acute February 23 2:17pm Susceptible to varicella (non-immune), currently acute February 23 2:17pm Advanced maternal age (AMA) in acute March 07, 025 2:12pm Breech presentation acute 2024 2:12pm Factor 5 Leiden mutation, heterozygous acute March 07 025 2:12pm arrhythmia affecting , antepartum acute March 07, 2025 2:12pm Hx successful (vaginal after ), currently acute March 2:12pm Obesity affecting acute March 07, 2025 2:12pm acute March 07, 2025 2:12pm Previous delivery affecting acute March 2:12pm Supervision of high-risk acute March 07 025 2:12pm Susceptible to varicella (non-immune), currently acute March 07 025 2:12pm [facility] Work Phone: 1(438) 690-102305-21-2025 Evaluation note* Diagnosis Onset Date Resolution Status Admit Date Advanced maternal age (AMA) in acute November 22, 2024 2 :51pm Factor 5 Leiden mutation, heterozygous acute November 22, 2024 2 :51pm Hx successful (vaginal after ), currently acute November 22 2:51pm Obesity affecting acute November 22, 2024 2:51pm acute November 22, 2024 2:51pm Previous delivery affecting acute November 22 2:51pm Supervision of high-risk acute November 22, 2024 2 :51pm Susceptible to varicella (non-immune), currently acute November 22, 2024 2 :51pm Advanced maternal age (AMA) in acute December 19, 2024 11:24am Factor 5 Leiden mutation, heterozygous acute December 19, 2024 11:24am Hx successful (vaginal after ), currently acute December 19 11:24am Obesity affecting acute December 19, 2024 11:24am acute December 19 11:24am Previous delivery affecting acute December 19, 025 11:24am Supervision of high-risk acute December 19, 2024 11:24am Susceptible to varicella (non-immune), currently acute December 19, 2024 11:24am Advanced maternal age (AMA) in acute January 16, 2025 1:36pm Factor 5 Leiden mutation, heterozygous acute January 16, 2025 1:36pm Hx successful (vaginal after ), currently acute January 16 1:36pm Obesity affecting acute January 16, 2025 1:36pm acute January 16 1:36pm Previous delivery affecting acute January 16, 2 025 1:36pm Supervision of high-risk acute January 16, 2025 1:36pm Susceptible to varicella (non-immune), currently acute January 16, 2025 1:36pm Advanced maternal age (AMA) in acute February 06, 2025 9:37am Factor 5 Leiden mutation, heterozygous acute February 06, 2025 9:37am Hx successful (vaginal after ), currently acute February 06, 2 025 9:37am Obesity affecting acute February 06, 2025 9:37am acute February 06 9:37am Previous delivery affecting acute February 06, 2025 9:37am Supervision of high-risk acute February 06, 2025 9:37am Susceptible to varicella (non-immune), currently acute February 06, 2025 9:37am arrhythmia affecting , antepartum resolved February 9:37am Advanced maternal age (AMA) in acute February 06, 2025 9:39am Factor 5 Leiden mutation, heterozygous acute February 06, 2025 9:39am Hx successful (vaginal after ), currently acute February 06, 025 9:39am Obesity affecting acute February 06, 2025 9:39am acute February 06 9:39am Previous delivery affecting acute February 06, 2025 9:39am Supervision of high-risk acute February 06, 2025 9:39am Susceptible to varicella (non-immune), currently acute February 06, 2025 9:39am Breech presentation resolved 2024 9:39am arrhythmia affecting , antepartum resolved February 9:39am Advanced maternal age (AMA) in acute February 23 2:17pm Factor 5 Leiden mutation, heterozygous acute February 23 2:17pm Hx successful (vaginal after ), currently acute February 23, 2025 2:17pm Obesity affecting acute February 23, 2025 2:17pm acute February 23, 025 2:17pm Previous delivery affecting acute February 23, 2025 2:17pm Supervision of high-risk acute February 23 2:17pm Susceptible to varicella (non-immune), currently acute February 23 2:17pm Breech presentation resolved Augus t 2024 2:17pm arrhythmia affecting , antepartum resolved February 2:17pm Advanced maternal age (AMA) in acute March 07, 2 025 2:12pm Factor 5 Leiden mutation, heterozygous acute March 07, 025 2:12pm Hx successful (vaginal after ), currently acute March 2:12pm Obesity affecting acute March 07, 2025 2:12pm acute March 07, 2025 2:12pm Previous delivery affecting acute March 2:12pm Supervision of high-risk acute March 07 025 2:12pm Susceptible to varicella (non-immune), currently acute March 07 2:12pm Breech presentation resolved 2024 2:12pm arrhythmia affecting , antepartum resolved March 07, 2025 2:12pm Advanced maternal age (AMA) in acute March 21, 2025 9:49am Factor 5 Leiden mutation, heterozygous acute March 21, 2025 9:49am Hx successful (vaginal after ), currently acute March 9:49am Obesity affecting acute March 21, 2025 9:49am acute March 9:49am Previous delivery affecting acute March 212024 9:49am Supervision of high-risk acute March 21, 2025 9:49am Susceptible to varicella (non-immune), currently acute March 21, 2025 9:49am Breech presentation resolved 2024 9:49am arrhythmia affecting , antepartum resolved March 21, 2025 9:49am [facility] Work Phone: 1(511) 180-834105-21-2025 Progress [facility] [address] [place] [address], [place] [address] OFFICE VISIT Date of Service: 11/22/24 MR#: [id number] Acct: [id number] Name: CANDI MOYA Rep #: [id number] : 1990 Provider: POPEYE Leblanc Age/Sex: 34/F Location: [facility] Status: Signed Intake Vital Signs 09/22/24 14:25 10/24/24 15:27 11/22/24 15:00 Height 5 ft 4 in 5 ft 4 in 5 ft 4 in Weight: 207 lb 8 oz BMI 35.6 BP 113/75 Intake Visit Reasons: 17wk ob Chief Complaint: 17wk OB Valve Maker Required: No Is patient in pain?: No Allergies No Known Allergies Allergy (Verified 11/22/24 14:54) Medications ?Medication ?Instructions ?Recorded ?Confirmed ?Type PNV 153-FA 400 mcg-om3 35 mg-dha tab PO DAILY 09/05/24 11/22/24 History 25 mg-epa 5 mg-fish oil chew tablet magnesium 250 mg tablet 250 mg PO QDAY 09/05/2411/03 History ondansetron 4 mg disintegrating 4 mg PO Q6H PRN nausea and 09/22/24 11/22/24 Rx tablet vomiting #20 tabs pyridoxine (vitamin B6) 100 mg 100 mg PO QDAY 09/22/24 11/22/24 History tablet Last Menstrual Period: 07/21/24 : No PFSH PFSH Medical History Vaginal after Blood clotting disorder Encounter to determine viability of History of abnormal cervical Pap smear Pre-conception counseling Surgical History S/P Family History Grandmother Ovarian cancer CVA (cerebral vascular accident) Diabetes Grandfather CVA (cerebral vascular accident) Factor V Leiden Maternal Grandmother Diabetes Social History adopted: No household members: spouse and children housing: house number of children: 2 current occupational status: unemployed current occupation: [employer] current occupational exposures/hazards: No pets and animals: No history of recent travel: No sexually active: Yes Smoking Status: Never smoker alcohol intake: never substance use type: does not use well-balanced diet: daily or most days caffeine: Yes Type: carbonated beverages Number of servings: 1 eating out: rarely or never during the past year weight has: increased > 10 lbs what type of physical activity do you participate in: none 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 Date Name GA/Weeks Outcome Route Bth Weight Infant Gen Labor Lgth Anesthesia Del Locatn Provider QUINTEN 02/04/21 Edmun 39 live - full term 7lb 14oz Male epidural pato [place] 08/21/23 Flaco 39 live - full term 9#11oz Male none [facility] [place] Delivery Date: 02/04/21 Last Updated by: Priscilla Gandara, DO was an induction for LGA, cervix was swelling shut therefore csection was done Delivery Date: 08/21/23 Last Updated by: Laura Rowell Baby transported due to breathing issues several hours after delivery HPI 17wk ob Details: CANDI MOYA is a 34 year old who presents for routine OB visit. OB Visit ANDREA Calculator Estimated Delivery Date Method Current WG Current Estimate 04/27/25 LMP (Certain) 17w 5d Other Estimates 04/27/25 Ultrasound #1 17w 5d Expected Delivery Route/Plan Labor Preferences- CB/BF classes: [] labor support person: [] labor intervention preferences: [] pain management options preferred: [] cut cord/dad catch: [] : [] PP control planned: [] discussed possible routes of delivery and associated risks: [] special requests: [] patient counseled regarding risks/benefits of trial of labor versus repeat . ACOG/uptodate education given to patient. [] % likelihood of success per calculator TOLAC consent form signed: [] Specific Issue/Plans Covid status: [] Flu vaccine: [] Tdap vaccine: [] Rhogam: [] LARC form signed: [] Problem list reviewed and updated with the most current plan of care details and appropriate ordersplaced. Relevant counseling for the gestational age provided. Continue routine care and follow up unless otherwise noted in visit notes/problem list details Initial Weight: 207 lb Date -?-?-?-?-?-?-?-?-?-?-?-?- EGA Weight BP Urine Prot -?-?-?-?-?-?-?-?-?-?-?-?- Glucose FHR FuHt Pres Dilation -?-?-?-?-?-?-?-?-?-?-?-?- Effaced St Visit Note 09/22/24 -?-?-?-?-?-?-?-?-?-?-?-?- 9w 0d 207 lb 4 oz (+4 oz) 126/79 -?-?-?-?-?-?-?-?-?-?-?-?- 188 -?-?-?-?-?-?-?-?-?-?-?-?- KW- CRL cons wit h dates. Declines NIPT 10/24/24 -?-?-?-?-?-?-?-?-?-?-?-?- 13w 4d 206 lb 4 oz (-12 oz) 110/76 Negative -?-?-?-?-?-?-?-?-?-?-?-?- Negative 157 -?-?-?-?-?-?-?-?-?-?-?-?- SM- no vb crampi ng 11/22/24 -?-?--?-?-?-?-?-?-?-?-?-?- 17w 5d 207 lb 8 oz (+8 oz) 113/75 Negative -?-?-?-?-?-?-?-?-?-?-?-?- Negative 145 -?-?-?-?-?-?-?-?-?-?-?-?- KW- no vb/ctx. p ossible flutters. US scheduled. AFP declined. ACOG First Trimester First Trimester: Desire for , Alcohol, Tobacco Cessation, Illicit/Recreational Drug/Substance Use, Intimate Partner Violence, Barriers to care, Anticipated Course of Care, Use of Any medications, Sexual activity, Exercise, Dental Care, Sauna/Hot tub use, Seat Belt use, Childbirth c lasses/Hospital facilities, Travel, Indications for Ultrasound and Screening for Aneuploidy; Discussed Unstable Housing, Discussed Communication Barriers, Discussed Environmental/Work Hazards, Discussed Toxoplasmosis Precations and Discussed Second Trimester Second Trimester: Signs and Symptoms of Labor, Selecting a care provider, Reproductive Life Planning & Contreception, Care Planning, Depression/Anxiety and Intimate Partner Violence; Discussed Tobacco Cessation Third Trimester Third Trimester: Pain Management Plans, Labor support person(s), Immediate Larc, Signs and Symptoms of Preeclampsia, Infant Feeding No , [place] Education and Family Medical Leave or Disability Forms ROS Const Reports system reviewed and no additional complaints, except as documented Eyes Reports system reviewed and no additional complaints, except as documented ENT Reports system reviewed and no additional complaints, except as documented Card Reports system reviewed and no additional complaints, except as documented Resp Reports system reviewed and no additional complaints, except as documented GI Reports system reviewed and no additional complaints, except as documented, Denies nausea and Denies vomiting Reports system reviewed and no additional complaints, except as documented Musc Reports system reviewed and no additional complaints, except as documented Skin/Breast Reports system reviewed and no additional complaints, except as documented Neuro Yes system reviewed and no additional complaints, except as documented Psych Reports system reviewed and no additional complaints, except as documented Endo Reports system reviewed and no additional complaints, except as documented Loc/Lymph Reports system reviewed and no additional complaints, except as documented Aller/Immun Reports system reviewed and no additional complaints, except as documented Exam Const General: cooperative, healthy appearing and no acute distress Orientation: alert, awake and oriented x3 Neck Neck: normal visual inspection and full ROM Resp Effort & Inspection: normal respiratory effort, able to speak in complete sentences and symmetric chest movement GI Inspection: normal to inspection Palpation: soft and other Other: gravid Skin General: no rashes or lesions noted Neuro General: patient alert, patient awake and patient oriented x3 Cognition: normal cognition Speech: speech normal Gait: normal gait Motor: muscle tone normal throughout Extrem General: normal to inspection and full ROM Psych Appearance: grossly normal Mental Status: mental status grossly normal Mood: congruent mood Affect: normal affect Speech and Movement: speech and movement normal Attitude: cooperative Thought Process: normal Thought Content: normal Judgment: judgment good Results POC Urinalysis 2 Dip (Clinic) Office Urine Glucose Negative Last Edit by Bridgette Corona on 11/22/24 15:02 Office Urine Protein Negative Last Edit by Bridgette Corona on 11/22/24 15:02 Coding Level of Care Code OB Routine Diagnoses Previous delivery affecting O34.219 Supervision of high-risk O09.90 17 weeks gestation of Z3A.17 Weeks of gestation: 17 weeks Advanced maternal age (AMA) in Obesity affecting O99.210 Hx successful (vaginal after ), currently O34.219 Susceptible to varicella (non-immune), currently O09.899; Z28.39 Factor 5 Leiden mutation, heterozygous D68.51 Assessment and Plan Assessment and Plan (1) Previous delivery affecting : Status: Acute Comment: successful (2) Supervision of high-risk : Status: Acute Comment: PRR, , ANDREA 04/27/25, Flaco Omalley, Hay (3) : Status: Acute Qualifiers: Weeks of gestation: 17 weeks Qualified Code(s): Z3A.17 - 17 weeks gestation of Comment: genetic carrier and ntd screening declined. (4) Advanced maternal age (AMA) in : Status: Acute Comment: nsts after 36 weeks, deliver by 41 (5) Obesity affecting : Status: Acute Comment: HgbA1c (6) Hx successful (vaginal after ), currently : Status: Acute (7) Susceptible to varicella (non-immune), currently : Status: Acute (8) Factor 5 Leiden mutation, heterozygous: Status: Acute Comment: consulted with . no need for anticoagulants at this time Plan Details Additional Comments: ACOG trimester education reviewed and updated. see problem list details for updated plan management information and see below for orders placed atthis visit. GA appropriate handout given. 11/22/24 1512 s CNM> Date _ Sindhu Leblanc CNM Cosigner Signature: Date (if applicable) CC: ~ [facility]05-21-2025 Progress note Author Sindhu Leblanc [facility] Note Date/Time November 22, 2024 3:12p m [facility] [address] [place] [address], [address] [place] [address] OFFICE VISIT Date of Service: 11/22/24 MR#: [id number] Acct: [id number] Name: CANDI MOYA Rep #: [id number] : 1990 Provider: POPEYE Leblanc Age/Sex: 34/F Location: [facility] Status: Signed Intake Vital Signs 09/22/24 14:25 10/24/24 15:27 11/22/24 15:00 Height 5 ft 4 in 5 ft 4 in 5 ft 4 in Weight: 207 lb 8 oz BMI 35.6 BP 113/75 Intake Visit Reasons: 17wk ob Chief Complaint: 17wk OB Valve Maker Required: No Is patient in pain?: No Allergies No Known Allergies Allergy (Verified 11/22/24 14:54) Medications ?Medication ?Instructions ?Recorded ?Confirmed ?Type PNV 153-FA 400 mcg-om3 35 mg-dha tab PO DAILY 09/05/24 11/22/24 History 25 mg-epa 5 mg-fish oil chew tablet magnesium 250 mg tablet 250 mg PO QDAY 09/05/2411/03 History ondansetron 4 mg disintegrating 4 mg PO Q6H PRN nausea and 09/22/24 11/22/24 Rx tablet vomiting #20 tabs pyridoxine (vitamin B6) 100 mg 100 mg PO QDAY 09/22/24 11/22/24 History tablet Last Menstrual Period: 07/21/24 : No PFSH PFSH Medical History Vaginal after Blood clotting disorder Encounter to determine viability of History of abnormal cervical Pap smear Pre-conception counseling Surgical History S/P Family History Grandmother Ovarian cancer CVA (cerebral vascular accident) Diabetes Grandfather CVA (cerebral vascular accident) Factor V Leiden Maternal Grandmother Diabetes Social History adopted: No household members: spouse and children housing: house number of children: 2 current occupational status: unemployed current occupation: [employer] current occupational exposures/hazards: No pets and animals: No history of recent travel: No sexually active: Yes Smoking Status: Never smoker alcohol intake: never substance use type: does not use well-balanced diet: daily or most days caffeine: Yes Type: carbonated beverages Number of servings: 1 eating out: rarely or never during the past year weight has: increased > 10 lbs what type of physical activity do you participate in: none 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 Date Name GA/Weeks Outcome Route Bth Weight Gen Labor Lgth Anesthesia Del Simonatn Provider FOSuzy 02/04/21 Edmun 39 live - full term 7lb 14oz Male epidural pato Guido 08/21/23 Flaco 39 live - full term 9#11oz Male none WC KRISTAL Hay Delivery Date: 02/04/21 Last Updated by: Priscilla Gandara, DO was an induction for LGA, cervix was swelling shut therefore csection was done Delivery Date: 08/21/23 Last Updated by: Laura Rowell Baby transported due to breathing issues several hours after delivery HPI 17wk ob Details: CANDI MOYA is a 34 year old who presents for routine OB visit. OB Visit ANDREA Calculator Estimated Delivery Date Method Current WG Current Estimate 04/27/25 LMP (Certain) 17w 5d Other Estimates 04/27/25 Ultrasound #1 17w 5d Expected Delivery Route/Plan Labor Preferences- CB/BF classes: [] labor support person: [] labor intervention preferences: [] pain management options preferred: [] cut cord/dad catch: [] : [] PP control planned: [] discussed possible routes of delivery and associated risks: [] special requests: [] patient counseled regarding risks/benefits of trial of labor versus repeat . ACOG/uptodate education given to patient. [] % likelihood of success per calculator TOLAC consent form signed: [] Specific Issue/Plans Covid status: [] Flu vaccine: [] Tdap vaccine: [] Rhogam: [] LARC form signed: [] Problem list reviewed and updated with the most current plan of care details and appropriate orders placed. Relevant counseling for the gestational age provided. Continue routine care and follow up unless otherwise noted in visit notes/problem list details Initial Weight: 207 lb Date -?-?-?-?-?-?-?-?-?-?-?-?- EGA Weight BP Urine Prot -?-?-?-?-?-?-?-?-?-?-?-?- Glucose FHR FuHt Pres Dilation -?-?-?-?-?-?-?-?-?-?-?-?- Effaced St Visit Note 09/22/24 -?-?-?-?-?-?-?-?-?-?-?-?- 9w 0d 207 lb 4 oz (+4 oz) 126/79 -?-?-?-?-?-?-?-?-?-?-?-?- 188 -?-?-?-?-?-?-?-?-?-?-?-?- KW- CRL cons wit h dates. Declines NIPT 10/24/24 -?-?-?-?-?-?-?-?-?-?-?-?- 13w 4d 206 lb 4 oz (-12 oz) 110/76 Negative -?-?-?-?-?-?-?-?-?-?-?-?- Negative 157 -?-?-?-?-?-?-?-?-?-?-?-?- SM- no vb crampi ng 11/22/24 -?-?--?-?-?-?-?-?-?-?-?-?- 17w 5d 207 lb 8 oz (+8 oz) 113/75 Negative -?-?-?-?-?-?-?-?-?-?-?-?- Negative 145 -?-?-?-?-?-?-?-?-?-?-?-?- KW- no vb/ctx. p ossible flutters. US scheduled. AFP declined. ACOG First Trimester First Trimester: Desire for , Alcohol, Tobacco Cessation, Illicit/Recreational Drug/Substance Use, Intimate Partner Violence, Barriers to care, Anticipated Course of Care, Use of Any medications, Sexual activity, Exercise, Dental Care, Sauna/Hot tub use, Seat Belt use, Childbirth classes/Hospital facilities, Travel, Indications for Ultrasound and Screening for Aneuploidy; Discussed Unstable Housing, Discussed Communication Barriers, Discussed Environmental/Work Hazards, Discussed Toxoplasmosis Precations and Discussed Second Trimester Second Trimester: Signs and Symptoms of Labor, Selecting a care provider, Reproductive Life Planning & Contreception, Care Planning, Depression/Anxiety and Intimate Partner Violence; Discussed Tobacco Cessation Third Trimester Third Trimester: Pain Management Plans, Labor support person(s), Immediate Larc, Signs and Symptoms of Preeclampsia, Infant Feeding No , [place] Education and Family Medical Leave or Disability Forms ROS Const Reports system reviewed and no additional complaints, except as documented Eyes Reports system reviewed and no additional complaints, except as documented ENT Reports system reviewed and no additional complaints, except as documented Card Reports system reviewed and no additional complaints, except as documented Resp Reports system reviewed and no additional complaints, except as documented GI Reports system reviewed and no additional complaints, except as documented, Denies nausea and Denies vomiting Reports system reviewed and no additional complaints, except as documented Musc Reports system reviewed and no additional complaints, except as documented Skin/Breast Reports system reviewed and no additional complaints, except as documented Neuro Yes system reviewed and no additional complaints, except as documented Psych Reports system reviewed and no additional complaints, except as documented Endo Reports system reviewed and no additional complaints, except as documented Loc/Lymph Reports system reviewed and no additional complaints, except as documented Aller/Immun Reports system reviewed and no additional complaints, except as documented Exam Const General: cooperative, healthy appearing and no acute distress Orientation: alert, awake and oriented x3 Neck Neck: normal visual inspection and full ROM Resp Effort & Inspection: normal respiratory effort, able to speak in complete sentences and symmetric chest movement GI Inspection: normal to inspection Palpation: soft and other Other: gravid Skin General: no rashes or lesions noted Neuro General: patient alert, patient awake and patient oriented x3 Cognition: normal cognition Speech: speech normal Gait: normal gait Motor: muscle tone normal throughout Extrem General: normal to inspection and full ROM Psych Appearance: grossly normal Mental Status: mental status grossly normal Mood: congruent mood Affect: normal affect Speech and Movement: speech and movement normal Attitude: cooperative Thought Process: normal Thought Content: normal Judgment: judgment good Results POC Urinalysis 2 Dip (Clinic) Office Urine Glucose Negative Last Edit by Bridgette Corona on 11/22/24 15:02 Office Urine Protein Negative Last Edit by Bridgette Corona on 11/22/24 15:02 Coding Level of Care Code OB Routine Diagnoses Previous delivery affecting O34.219 Supervision of high-risk O09.90 17 weeks gestation of Z3A.17 Weeks of gestation: 17 weeks Advanced maternal age (AMA) in Obesity affecting O99.210 Hx successful (vaginal after ), currently O34.219 Susceptible to varicella (non-immune), currently O09.899; Z28.39 Factor 5 Leiden mutation, heterozygous D68.51 Assessment and Plan Assessment and Plan (1) Previous delivery affecting : Status: Acute Comment: successful (2) Supervision of high-risk : Status: Acute Comment: PRR, , ANDREA 04/27/25, PC Abimael, Flaco, Hay (3) : Status: Acute Qualifiers: Weeks of gestation: 17 weeks Qualified Code(s): Z3A.17 - 17 weeks gestation of Comment: genetic carrier and ntd screening declined. (4) Advanced maternal age (AMA) in : Status: Acute Comment: nsts after 36 weeks, deliver by 41 (5) Obesity affecting : Status: Acute Comment: HgbA1c (6) Hx successful (vaginal after ), currently : Status: Acute (7) Susceptible to varicella (non-immune), currently : Status: Acute (8) Factor 5 Leiden mutation, heterozygous: Status: Acute Comment: consulted with . no need for anticoagulants at this time Plan Details Additional Comments: ACOG trimester education reviewed and updated. see problem list details for updated plan management information and see below for orders placed at this visit. GA appropriate handout given. 11/22/24 [id number] <Electronically signed by Sindhu flynn CNM> Date _ Sindhu Leblanc CNM Cosigner Signature: Date (if applicable) CC: ~ [facility] [employer] Work Phone: 1(676) 408-894204-22-2025 Evaluation note* Diagnosis Onset Date Resolution Status Admit Date Advanced maternal age (AMA) in acute October 24, 2024 3:23pm Factor 5 Leiden mutation, heterozygous acute October 24, 2024 3:23pm Hx successful (vaginal after ), currently acute October 24, 2024 3:23pm Obesity affecting acute October 24, 2024 3:23pm acute October 24 3:23pm Previous delivery affecting acute October 24, 2024 3:23pm Supervision of high-risk acute October 24, 2024 3:23pm Susceptible to varicella (non-immune), currently acute October 24, 2024 3:23pm Advanced maternal age (AMA) in acute November 22, 2024 2 :51pm Factor 5 Leiden mutation, heterozygous acute November 22, 2024 2 :51pm Hx successful (vaginal after ), currently acute November 22, 2024 2 :51pm Obesity affecting acute November 22, 2024 2:51pm acute November 22, 2024 2:51pm Previous delivery affecting acute November 22 2:51pm Supervision of high-risk acute November 22, 2024 2 :51pm Susceptible to varicella (non-immune), currently acute November 22, 2024 2:51pm Advanced maternal age (AMA) in acute December 19, 2024 11:24am Factor 5 Leiden mutation, heterozygous acute December 19, 2024 11:24am Hx successful (vaginal after ), currently acute December 19, 2024 11:24am Obesity affecting acute December 19, 2024 11:24am acute December 19 11:24am Previous delivery affecting acute December 19, 025 11:24am Supervision of high-risk acute December 19, 2024 11:24am Susceptible to varicella (non-immune), currently acute December 19, 2024 11:24am Advanced maternal age (AMA) in acute January 16, 2025 1:36pm Factor 5 Leiden mutation, heterozygous acute January 16, 2025 1:36pm Hx successful (vaginal after ), currently acute January 16, 2025 1:36pm Obesity affecting acute January 16, 2025 1:36pm acute January 16 1:36pm Previous delivery affecting acute January 16, 2 025 1:36pm Supervision of high-risk acute January 16, 2025 1:36pm Susceptible to varicella (non-immune), currently acute January 16, 2025 1:36pm Advanced maternal age (AMA) in acute February 06, 2025 9:37am Factor 5 Leiden mutation, heterozygous acute February 06, 2025 9:37am Hx successful (vaginal after ), currently acute February 06, 2025 9:37am Obesity affecting acute February 06, 2025 9:37am acute February 06 9:37am Previous delivery affecting acute February 06, 2025 9:37am Supervision of high-risk acute February 06, 2025 9:37am Susceptible to varicella (non-immune), currently acute February 06, 2025 9:37am [facility] Work Phone: 1([phone]) 134-334904-22-2025 Evaluation note* Diagnosis Onset Date Resolution Status Admit Date Advanced maternal age (AMA) in acute October 24, 2024 3:23pm Factor 5 Leiden mutation, heterozygous acute October 24, 2024 3:23pm Hx successful (vaginal after ), currently acute October 24, 2024 3:23pm Obesity affecting acute October 24, 2024 3:23pm acute October 24 3:23pm Previous delivery affecting acute October 24, 2024 3:23pm Supervision of high-risk acute October 24, 2024 3:23pm Susceptible to varicella (non-immune), currently acute October 24, 2024 3:23pm Advanced maternal age (AMA) in acute November 22, 2024 2 :51pm Factor 5 Leiden mutation, heterozygous acute November 22, 2024 2 :51pm Hx successful (vaginal after ), currently acute November 22, 2024 2 :51pm Obesity affecting acute November 22, 2024 2:51pm acute November 22, 2024 2:51pm Previous delivery affecting acute November 22 2:51pm Supervision of high-risk acute November 22, 2024 2 :51pm Susceptible to varicella (non-immune), currently acute November 22, 2024 2:51pm Advanced maternal age (AMA) in acute December 19, 2024 11:24am Factor 5 Leiden mutation, heterozygous acute December 19, 2024 11:24am Hx successful (vaginal after ), currently acute December 19, 2024 11:24am Obesity affecting acute December 19, 2024 11:24am acute December 19 11:24am Previous delivery affecting acute December 19, 025 11:24am Supervision of high-risk acute December 19, 2024 11:24am Susceptible to varicella (non-immune), currently acute December 19, 2024 11:24am Advanced maternal age (AMA) in acute January 16, 2025 1:36pm Factor 5 Leiden mutation, heterozygous acute January 16, 2025 1:36pm Hx successful (vaginal after ), currently acute January 16, 2025 1:36pm Obesity affecting acute January 16, 2025 1:36pm acute January 16 1:36pm Previous delivery affecting acute January 16, 025 1:36pm Supervision of high-risk acute January 16, 2025 1:36pm Susceptible to varicella (non-immune), currently acute January 16, 2025 1:36pm Advanced maternal age (AMA) in acute February 06, 2025 9:37am Factor 5 Leiden mutation, heterozygous acute February 06, 2025 9:37am arrhythmia affecting , antepartum acute February 9:37am Hx successful (vaginal after ), currently acute February 06, 2025 9:37am Obesity affecting acute February 06, 2025 9:37am acute February 06 9:37am Previous delivery affecting acute February 06, 2025 9:37am Supervision of high-risk acute February 06, 2025 9:37am Susceptible to varicella (non-immune), currently acute February 06, 2025 9:37am [facility] Work Phone: 1(430) 808-126303-21-2025 Evaluation note* Diagnosis Onset Date Resolution Status Admit Date Advanced maternal age (AMA) in acute September 22, 2024 2:21pm Factor 5 Leiden mutation, heterozygous acute September 22, 2024 2:21pm Hx successful (vaginal after ), currently acute September 22, 2024 2:21pm Obesity affecting acute September 22, 2024 2:21pm acute September 22 2:21pm Supervision of high-risk acute September 22, 2024 2:21pm Susceptible to varicella (non-immune), currently acute September 22, 2024 2:21pm [facility] Work Phone: 1(975) 625-954103-21-2025 Evaluation note* Diagnosis Onset Date Resolution Status Admit Date Advanced maternal age (AMA) in acute September 22, 2024 2:21pm Factor 5 Leiden mutation, heterozygous acute September 22, 2024 2:21pm Hx successful (vaginal after ), currently acute September 22, 2024 2:21pm Obesity affecting acute September 22, 2024 2:21pm acute September 22 2:21pm Supervision of high-risk acute September 22, 2024 2:21pm Susceptible to varicella (non-immune), currently acute September 22, 2024 2:21pm Advanced maternal age (AMA) in acute October 24, 2024 3:23pm Factor 5 Leiden mutation, heterozygous acute October 24, 2024 3:23pm Hx successful (vaginal after ), currently acute October 24, 2024 3:23pm Obesity affecting acute October 24, 2024 3:23pm acute October 24 3:23pm Previous delivery affecting acute October 24, 2024 3:23pm Supervision of high-risk acute October 24, 2024 3:23pm Susceptible to varicella (non-immune), currently acute October 24, 2024 3:23pm Advanced maternal age (AMA) in acute November 22, 2024 2 :51pm Factor 5 Leiden mutation, heterozygous acute November 22, 2024 2 :51pm Hx successful (vaginal after ), currently acute November 22, 2024 2 :51pm Obesity affecting acute November 22, 2024 2:51pm acute November 22, 2024 2:51pm Previous delivery affecting acute November 22 2:51pm Supervision of high-risk acute November 22, 2024 2 :51pm Susceptible to varicella (non-immune), currently acute November 22, 2024 2:51pm [facility] Work Phone: 1(328) 348-249203-21-2025 Evaluation note* Diagnosis Onset Date Resolution Status Admit Date Advanced maternal age (AMA) in acute September 22, 2024 2:21pm Factor 5 Leiden mutation, heterozygous acute September 22, 2024 2:21pm Hx successful (vaginal after ), currently acute September 22, 2024 2:21pm Obesity affecting acute September 22, 2024 2:21pm acute September 22 2:21pm Supervision of high-risk acute September 22, 2024 2:21pm Susceptible to varicella (non-immune), currently acute September 22, 2024 2:21pm Advanced maternal age (AMA) in acute October 24, 2024 3:23pm Factor 5 Leiden mutation, heterozygous acute October 24, 2024 3:23pm Hx successful (vaginal after ), currently acute October 24, 2024 3:23pm Obesity affecting acute October 24, 2024 3:23pm acute October 24 3:23pm Previous delivery affecting acute October 24, 2024 3:23pm Supervision of high-risk acute October 24, 2024 3:23pm Susceptible to varicella (non-immune), currently acute October 24, 2024 3:23pm Advanced maternal age (AMA) in acute November 22, 2024 2 :51pm Factor 5 Leiden mutation, heterozygous acute November 22, 2024 2 :51pm Hx successful (vaginal after ), currently acute November 22, 2024 2 :51pm Obesity affecting acute November 22, 2024 2:51pm acute November 22, 2024 2:51pm Previous delivery affecting acute November 22 2:51pm Supervision of high-risk acute November 22, 2024 2 :51pm Susceptible to varicella (non-immune), currently acute November 22, 2024 2:51pm Advanced maternal age (AMA) in acute December 19, 2024 11:24am Factor 5 Leiden mutation, heterozygous acute December 19, 2024 11:24am Hx successful (vaginal after ), currently acute December 19, 2024 11:24am Obesity affecting acute December 19, 2024 11:24am acute December 19 11:24am Previous delivery affecting acute December 19, 2 025 11:24am Supervision of high-risk acute December 19, 2024 11:24am Susceptible to varicella (non-immune), currently acute December 19, 2024 11:24am [facility] Work Phone: 1([phone]) 473-271203-21-2025 Evaluation note* Diagnosis Onset Date Resolution Status Admit Date Advanced maternal age (AMA) in acute September 22, 2024 2:21pm Factor 5 Leiden mutation, heterozygous acute September 22, 2024 2:21pm Hx successful (vaginal after ), currently acute September 22, 2024 2:21pm Obesity affecting acute September 22, 2024 2:21pm acute September 22 2:21pm Supervision of high-risk acute September 22, 2024 2:21pm Susceptible to varicella (non-immune), currently acute September 22, 2024 2:21pm Advanced maternal age (AMA) in acute October 24, 2024 3:23pm Factor 5 Leiden mutation, heterozygous acute October 24, 2024 3:23pm Hx successful (vaginal after ), currently acute October 24, 2024 3:23pm Obesity affecting acute October 24, 2024 3:23pm acute October 24 3:23pm Previous delivery affecting acute October 24, 2024 3:23pm Supervision of high-risk acute October 24, 2024 3:23pm Susceptible to varicella (non-immune), currently acute October 24, 2024 3:23pm Advanced maternal age (AMA) in acute November 22, 2024 2 :51pm Factor 5 Leiden mutation, heterozygous acute November 22, 2024 2 :51pm Hx successful (vaginal after ), currently acute November 22, 2024 2 :51pm Obesity affecting acute November 22, 2024 2:51pm acute November 22, 2024 2:51pm Previous delivery affecting acute November 22 2:51pm Supervision of high-risk acute November 22, 2024 2 :51pm Susceptible to varicella (non-immune), currently acute November 22, 2024 2:51pm Advanced maternal age (AMA) in acute December 19, 2024 11:24am Factor 5 Leiden mutation, heterozygous acute December 19, 2024 11:24am Hx successful (vaginal after ), currently acute December 19, 2024 11:24am Obesity affecting acute December 19, 2024 11:24am acute December 19 11:24am Previous delivery affecting acute December 19, 025 11:24am Supervision of high-risk acute December 19, 2024 11:24am Susceptible to varicella (non-immune), currently acute December 19, 2024 11:24am Advanced maternal age (AMA) in acute January 16, 2025 1:36pm Factor 5 Leiden mutation, heterozygous acute January 16, 2025 1:36pm Hx successful (vaginal after ), currently acute January 16, 2025 1:36pm Obesity affecting acute January 16, 2025 1:36pm acute January 16 1:36pm Previous delivery affecting acute January 16 1:36pm Supervision of high-risk acute January 16, 2025 1:36pm Susceptible to varicella (non-immune), currently acute January 16, 2025 1:36pm [facility] [employer] [facility] Work Phone: [phone]) 663-596002-17-2024 Discharge summary Author Roro Troy [facility] August 21, 2023 7:19am Note Date/Time August 21, 2023 7:19am [facility] Medical Records Department [address] [place] [address] Instructions for Home/Discharge Instructions 08/21/23 0719 MR#: [id number] Acct: [id number] Name: GRIFFINCANDILI SHARMA Rep #:[id number] : 1990 33 From: Roro sweeney MD PCP: Care Physician,No Primary Status :ADM IN Discharge Instructions Diet Discharge Diet: No restrictions Activity Discharge Activity: Return to Normal Activity, May Not Drive (while taking narcotic pain medications.) and May Shower May resume sexual activity in: 4-6 weeks Dressing / Incision Call your doctor if your incision/area has: Continuous Slow Oozing, Sudden Increased Bleeding, Increased Pain/ Swelling, Increased Redness and Foul Smelling Discharge Follow Up Care Please Follow Up With: Roro Troy MD When: Call [phone] to make an appointment with your doctor in 6 weeks. If you had elevated blood pressure or 4th degree laceration, you will need to be seen in 2 weeks. Test Results: Test results from this visit will be discussed in further detail at your follow- up appointment, if applicable. Discharge Plan Admission Admit Date/Time: 08/21/23 04:28 Attending Provider: Roro Troy Primary Care Provider: Care Physician,Arlet Primary Discharge Orders/Prescriptions Prescriptions: No Action PNV 119-iron fum-folic acid 29 mg iron- 1 mg tablet 1 tab PO DAILY Referrals / Follow Up: Care Physician,No Primary [Primary Care Provider] - Disposition Disposition (needs filled in before D/C Order can be placed): Home, Self Care 08/21/23718<Electronically signed by Roro Troy MD>Roro Troy MD CC: No Primary Care Physician ~ Signed [facility] Work Phone: 1([phone]) 563-818902-17-2024 Procedure [facility] 08-21-2023 History and physical note Author Roro Troy [facility] August 21, 2023 5:31am Note Date/Time August 21, 2023 5:31am [facility] Medical Records Department [address] [place] [id number] H&P Exam - PRODUCT INSPECTION COORDINATOR 08/21/23 0507 MR#: [id number] Acct: [id number] Name: CANDI MOYA Rep #:[id number] : 1990 33 From: Roro sweeney MD PCP: Care Physician,No Primary Status :ADM IN Location: [id number] HPI - General General Date of Admission: 08/21/23 HPI Narrative CANDI MOYA, is a 33 F who presents IAL 6 cm dilated regular ctx no vb lof admits good fm. desires TOLAC Maternal Data Information ANDREA Calculator Estimated Delivery Date Method Current WG Current Estimate 08/22/23 LMP (Certain) 39w 6d PFSH PFSH Medical History (Updated 08/21/23 @ 05:[address] Roro Troy MD) Blood clotting disorder Encounter to determine viability of History of abnormal cervical Pap smear Pre-conception counseling Home Medications vitamins no.119-iron fumarate 29 mg-folic acid 1 mg tablet 1 tab PO DAILY 01/21/23 [History Last Taken 08/20/23 21:00 1 TAB] Allergy/AdvReac Type Severity Reaction Status Date / Time No Known Allergies Allergy Verified 08/21/23 04:33 Family History Grandmother Ovarian cancer CVA (cerebral vascular accident) Diabetes Grandfather CVA (cerebral vascular accident) Grandmother Diabetes Surgical History S/P Social History adopted: No household members: family number of children: 1 current occupational status: unemployed 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 Date Name GA/Weeks Outcome Route Bth Weight Gen Labor Lgth Anesthesia Del [facility] Provider FOB 02/04/21 Edmun 39 live - full term 7lb 14oz Male epidural pato Guido Delivery Date: 02/04/21 Last Updated by: Priscilla Gandara, DO was an induction for LGA, cervix was swelling shut therefore csection was done Visit Details Expected Delivery Route/Plan TOLAC patient counseled regarding risks/benefits of trial of labor versus repeat . ACOG/uptodate education given to patient. 45 % likelihood of success per calculator TOLAC consent form signed: completed. Labor Preferences- CB/BF classes: just breath completed. labor support person: Hay labor intervention preferences: low interventions, allow SROM if ok. pain management options preferred:unmedicated cut cord/dad catch:no to cutting cord :plans PP control planned: PISANO, to discuss POP at visit. declines larc discussed possible routes of delivery and associated risks: reviewed methods special requests: [] Plans Covid status: declined Flu vaccine: declined Tdap vaccine: declined Rhogam: na LARC form signed: declined movement and labor precautions reviewed. Problem list reviewed and updated with the most current plan of care details and appropriate orders placed. Relevant counseling for the gestational age provided. Continue routine care and follow up unless otherwise noted in visit notes/problem list details OB Flowsheet Initial Weight: 194 lb Date -?-?-?-?-?-?-?-?-?-?-?-?- EGA Weight BP Urine Prot -?-?-?-?-?-?-?-?-?-?-?-?- Glucose FHR FuHt Pres Dilation -?-?-?-?-?-?-?-?-?-?-?-?- Effaced St Visit Note 01/21/23 -?-?-?-?-?-?-?-?-?-?-?-?- 9w 4d 194 lb (+0 oz) 116/80 Negative -?-?-?-?-?-?-?-?-?-?-?-?- Negative 170 -?-?-?-?-?-?-?-?-?-?-?-?- KW- CRL consiste nt with LMP per handheld US. early glucose ordered KW- CRL consistent with LMP per handheld US. Consulted with regarding Factor 5, tested due to grandfather finding out he had factor V. early glucose ordered. 02/19/23 -?-?-?-?-?-?-?-?-?-?-?--?- 13w 5d 195 lb 6 oz (+1 lb 6 oz) 121/83 Negative -?-?-?-?-?-?-?-?-?-?-?-?- Negative 160 -?-?-?-?-?-?-?-?-?-?-?-?- JV- stuff d iscussed today. chance of success is 45% 03/17/23 -?-?-?-?-?-?-?-?-?-?-?-?- 17w 3d 196 lb 6 oz (+2 lb 6 oz) 108/68 Negative -?-?-?-?-?-?-?-?-?-?-?-?- Negative 158 -?-?-?-?-?-?-?-?-?-?-?-?- LC- no vb/crampi ng. discussed and declines afp. has anatomy scheduled. 04/13/23 -?-?-?-?-?-?-?-?-?-?-?-?- 21w 2d 198 lb (+4 lb) 110/70 -?-?-?-?-?-?-?-?-?-?-?-?- 150 -?-?-?-?-?-?-?-?-?-?-?-?- SM- no vb crampi ng discussed info 05/18/23 -?-?-?-?-?-?-?-?-?-?-?-?- 26w 2d 203 lb 2 oz (+9 lb 2 oz) 116/74 Negative -?-?-?-?-?--?-?-?-?-?-?-?- Negative 150 26 -?-?-?-?-?-?-?-?-?-?-?-?- SM- no vb lof go od fm no regular ctx 06/04/23 -?-?-?-?-?-?-?-?-?-?-?-?- 28w 5d 203 lb (+9 lb) 114/68 Negative -?-?-?-?-?-?-?-?-?-?-?-?- Negative 154 32 -?-?-?-?-?-?-?-?-?-?-?-?- JV- no lof, vagi nal bleeding, or cramping. passed her 1 hr and normal cbc. declines tdap. 06/14/23 -?-?-?-?-?-?-?-?-?-?-?-?- 30w 1d 205 lb 2 oz (+11 lb 2 oz) 119/67 Negative -?-?-?-?-?-?-?-?-?-?-?-?- Negative 149 32 -?-?-?-?-?-?-?-?-?-?-?-?- JV- no lof, vagi nal bleeding, or dec fm. signed larc today. 07/02/23 -?-?-?-?-?-?-?-?-?-?-?-?- 32w 5d 206 lb 6 oz (+12 lb 6 oz) 106/73 Negative -?-?-?-?-?-?-?-?-?-?-?-?- Negative 145 33 -?-?--?-?-?-?-?-?-?-?-?-?- SM- no vb lof go od fm no regular ctx 07/16/23 -?-?-?-?-?-?-?-?-?-?-?-?- 34w 5d 209 lb 2 oz (+15 lb 2 oz) 113/74 Negative -?-?-?-?-?-?-?-?-?-?-?-?- Negative 150 35 -?-?-?-?-?-?-?-?-?-?-?-?- kw-no vb/lof/ctx . good fm. no concerns 07/30/23 -?-?-?-?-?-?-?-?-?-?-?-?- 36w 5d 209 lb 8 oz (+15 lb 8 oz) 123/86 Negative -?-?-?-?-?-?-?-?-?-?-?-?- Negative 146 37 -?-?-?-?-?-?-?-?-?-?-?-?- LC- no vb/ctx/lo f. good fm. to obtain growth scan for tolac, consent signed. desires low intervention tolac if appropriate. reviewed gbs +, may decline antibiotics, r/b/a reviewed. 08/06/23 -?-?-?-?-?-?-?-?-?-?-?-?- 37w 5d 210 lb 4 oz (+16 lb 4 oz) 116/69 Negative -?-?-?-?-?-?-?-?-?-?-?-?- Negative 140 42 Cephalic -?-?-?-?-?-?-?-?-?-?-?-?- JV-pt has decide d if no labor by 40 weeks 5 days she will proceed with section. yesterday baby weighing 8 pounds. estimated to weigh over 9 pounds at the time of her section (if delivers close to that time) 08/13/23 -?-?-?-?-?-?-?-?-?-?-?-?- 38w 5d 210 lb 8 oz (+16 lb 8 oz) 108/70 Negative -?-?-?-?-?-?-?-?-?-?-?-?- Negative 140 40 Cephalic 4 -?-?-?-?-?-?-?-?-?-?-?-?- 80 -2 KW- no vb/ lof/regular ctx. good fm. desires membrane sweep next visit 08/19/23 -?-?-?-?-?-?-?-?-?-?-?-?- 39w 4d 200 lb (+6 lb) 126/77 -?-?-?-?-?-?-?-?-?-?-?-?- 140 40 Cephalic 4.5 -?-?-?-?-?-?-?-?-?-?-?-?- 80 SM- no v b lof good fm irregular ctx SM- no vb lof good fm irregu lar ctx membranes swept NST FHR Rate Baby A Baseline: 140 Variability:: Moderate Accelerations:: 15 x 15 Decelerations:: None NST Reactive:: Yes FHR Category:: Category I Uterine Activity:: q3 ROS Constitutional Constitutional: Reports systems reviewed and no addt'l complaints, except as documented ENT HEENT: Reports systems reviewed and no addt'l complaints, except as documented Cardiovascular Cardiovascular: Reports systems reviewed and no addt'l complaints, except as documented Respiratory/Chest Respiratory/Chest: Reports systems reviewed and no addt'l complaints, except as documented Gastrointestinal Gastrointestinal: Reports systems reviewed and no addt'l complaints, except as documented and nausea; Denies abdominal pain Genitourinary Genitourinary: Reports systems reviewed and no addt'l complaints, except as documented, contractions Details: present and frequency (regular ) and movement Details: present Musculoskeletal Musculoskeletal: Reports systems reviewed and no addt'l complaints, except as documented Integumentary Integumentary: Reports as per HPI Neurologic Neurologic: Reports systems reviewed and no addt'l complaints, except as documented Endocrine Endocrinology: Reports systems reviewed and no addt'l complaints, except as documented Vital Signs Vital Signs Vital Signs: 08/21/23 04:19 08/21/23 04:18 08/21/23 04:19 Temperature Temperature Source Temporal Pulse Rate 100 Blood Pressure 135/77 H BP Systolic 135 BP Diastolic 77 Pulse Ox 08/21/23 04:19 08/21/23 04:19 Temperature 97.7 F L Temperature Source Pulse Rate Blood Pressure BP Systolic BP Diastolic Pulse Ox 98 Weight Weight: 212 lb 1.355 oz Body Mass Index (BMI) 36.3 Physical Exam Const alert, oriented x3 and healthy appearing Constitutional Narrative: uncomfortable with contractions HEENT normocephalic and moist oral mucous membranes Head and Scalp: atraumatic Neck full ROM, no lymphadenopathy, supple and thyroid normal General: trachea midline Thyroid: thyroid normal Lymph Lymphatic: no lymphadenopathy noted Chest inspection of chest normal Resp normal respiratory effort Cardio regular rate GI normal to inspection, nondistended, normoactive bowel sounds, soft to palpation and non-tender Inspection: gravid external exam normal Bimanual Exam - Vag & Uterus: uterus non-tender Manual OB Exam: estimated gestational size appropriate, presentation cephalic, dilated, effaced and station Extremity normal to inspection General Extremity: Negative for edema Skin no rashes or lesions noted Neuro deep tendon reflexes 2+ bilaterally Motor Exam: strength 5/5 throughout and clonus absent Psych mental status grossly normal Labs Labs Labs: Blood Type O POSITIVE Antibody Screen NEGATIVE Hct 34.4 % (37-47) L Hgb 11.0 g/dL (12.0-15.0) L Pap Smear Negative Obstetrics Ultrasound Syphilis Total Ab Non-reactive VZV IgG Antibody < 135 index (Immune >165) L Rubella IgG Antibody Reactive (Nonreactive) Hep Bs Antigen Non-Reactive (Nonreactive) Hepatitis C Antibody Non-Reactive (Nonreactive) Chlamydia DNA (PEMA) Negative (Negative) N.gonorrhoeae DNA (PEMA) Negative (Negative) HIV 1&2 Antibody Non-Reactive (Nonreactive) Glucose 1 Hr 50 gm 102 mg/dL (70-140) Assessment & Plan (1) Previous delivery affecting : COMMENT: AOD 9 cm (2) Susceptible to varicella (non-immune), currently : (3) Positive GBS test: COMMENT: in urine. treat in labor (4) Obesity (BMI 30.0-34.9): (5) Desires (vaginal after ) trial: COMMENT: discussed either spontaneous labor prior to scheduled cs or consider IOL if favorable juarez score by 08/27/23 (c/s scheduled 08/27) (6) : QUALIFIERS: Weeks of gestation: 39 weeks Qualified Code(s): Z3A.39 - 39 weeks gestation of COMMENT: declines NIPT, ntd, and carrier screen, nl anatomy. (7) Supervision of high risk , antepartum: COMMENT: PRR ANDREA 08/22/23 boy [facility] Edmun Spouse Hay (8) Factor 5 Leiden mutation, heterozygous: COMMENT: consulted with . no need for anticoagulants at this time (9) Active labor at term: PLAN: Plan Patient presents IAL, plan expectant management for , pitocin/AROM PRN if needed. Pain management: open to epidural. GBS positive plan IV PCN. Management of any complications: none I have reviewed the [facility] and made any clinically relevant updates. 08/21/23 0531 <Electronically signed by Roro Troy MD> Cosigner Signature (if applicable): CC: Dr. 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 Care Physician~ Signed [facility] Work Phone: [phone] 185-649902-16-2022 NoteAccession #: [id number] Date of Procedure: 08/20/2021 Pathologist: [facility], Cytology Date Reported: 08/27/2021 Date Received: 08/20/2021 Submitting Physician: RJ HATCH MD FINAL CYTOLOGICAL INTERPRETATION A. THINPREP PAP CERVICAL: Specimen adequacy: SATISFACTORY FOR EVALUATION. Quality Indicator: Endocervical/transformation zone component is present. General Categorization: NEGATIVE FOR INTRAEPITHELIAL LESION OR MALIGNANCY. Descriptive Interpretation: CELLULAR EVIDENCE OF PARAKERATOSIS. Ancillary Testing: Specimen does not meet the requisition-stated criteria for HPV testing. See Pap test interpretation above. QC review performed at [facility], [address] [place] [id number] This specimen has been analyzed by the [employer] Solar HeatingPrep Imaging System ([employer] an automated imaging and review system, which assists the laboratory in evaluating cells on ThinPrep Pap tests. Following automated imaging, selected beltran from every slide were reviewed by a client program manager and/or pathologist. Electronically Signed Out By [facility], Cytology//[facility] By the signature on this [...] Source of Specimen A: THINPREP PAP CERVICAL [facility] Department of Pathology [address] [place] [id number]Comment on above:Performed By: #### C #### [facility] Cytology [address] [place] [address] [phone] NoteSend Summary: Discharge Summary Providers: Provider RoleProvider Name AttendingRj Hatch Note Recipients: none Discharge: Summary: Admission Date: .04-Feb-2021 05:11:00 Discharge Date: 07-Feb-2021 Attending Physician at Discharge: Rj Hatch Admission Reason: Term Final Discharge Diagnoses: Status post delivery Procedures: Primary low transverse section Condition at Discharge: Satisfactory Disposition at Discharge: .Home Vital Signs: T PRBPSpO2 [id number]/7298% Date/Time02/07 4:148/6 4:148/6 4:148/6 4:148/6 4:14 Range(36.6C [...] Pending: None Radiology Results - Pending: None [place] Suicide Risk: negative Discharge Instructions: Activity: Return to normal activity as tolerated Nutrition/Diet: Regular Follow Up Appointments: Follow-Up - OB Provider: Physician/Dept/Service: Rj Hatch MD Call to Schedule in: 2 weeks Discharge Medications: [id number]-oqyrjpa Tylenol and Motrin Electronic Signatures: Rj Hatch) (Signed 07-Feb-2021 07:14) Authored: Send Summary, Summary Content, Ongoing Care, Note Completion Last Updated: 07-Feb-2021 07:14 by Rj Hatch)[facility] 02-05-2021 NoteProvider Information: Maternal Delivery Information: Delivery Type: delivery Did [...] same as pre-op dx Delivery Provider: Rj Hatch MD Mold Checker: Tang Rios DO Dictation: not applicable - [...] in supine position with lateral hip tilt. Ramsay catheter had been placed preoperatively. The abdomen [...] extended laterally with bandage scissors, with the cryptographic machine operator's hand between the scissors and the parts. There was noted clear amniotic fluid. The head was delivered easily, followed by the remainder of the . Cord was doubly clamped and cut, the infant handed off to awaiting Labor and Delivery [...] was taken to PACU in good condition. Seo Manager: Dr. Rios as needed for appropriate retraction, [...] - IT Use Only2 Electronic Signatures: Rj Hatch) (Signed 04-Feb-2021 22:44) Authored: Provider Information, Hemorrhage Risk, Note Completion Last Updated: 04-Feb-2021 22:44 by Rj Hatch)[facility] 02-04-2021 NoteHPI/OB History: Care Provider: Rj Hatch MD HPI Descriptive Info: HPI Patient is a 30 [...] 1 cm dilated, 50% effaced, -2 station. Ramsay bulb was placed and inflated with 60 mL of saline. Ramsay catheter was then taped to the right [...] 05-Aug-2020 Syphilis Results: negative Antepartum/: Antepartum/PP: Final [id number] Current EGA:39 Patient is > or = 35.0 wks EGAyes Determined byFabien EFW (kg)3.515 kilogram(s) EFW (lb)7 pound(s) EFW [...] been reviewed. Objective: Objective Information: T PRBPSpO2 [id number]/7395% Date/Time83 6:228/3 6:218/3 6:22 Range (95 - 112 [...] : Assessment: 1. Term 2. Induction with Pitocin/ramsay 3. Anticipate normal spontaneous vaginal delivery Electronic Signatures: Rj Hatch) (Signed 04-Feb-2021 07:25) Authored: HPI/OB History, Labs, Antepartum/PP, Social History, Allergies, Medications Prior to Admission, Objective, Assessment and Plan, Note Completion Last Updated: 04-Feb-2021 07:25 by Rj Hatch) References: 1. Data Referenced From Patient Profile - OB v3 [facility] 06:41[facility]* Cardiovascular: S1 S2 RRR, no murmursExtremities: no calf tenderness, reflexes 2+Constitutional: alert, orientedRespiratory/Thorax: normal respiratory effort, lungs clear, no wheezes or rhonchi [facility] noteNo assessment information available [facility] Work Phone: Evaluation note* Diagnosis Onset Date Resolution Status Desires (vaginal after ) trial acute Factor 5 Leiden mutation, heterozygous acute Obesity (BMI 30.0-34.9) acut e acute Supervision of high risk , antepartum acute Desires (vaginal after ) trial acute Encounter to determine viability of acute Factor 5 Leiden mutation, heterozygous acute Obesity (BMI 30.0-34.9) acut e Positive GBS test acute acute Supervision of high risk , antepartum acute [facility] Work Phone: Evaluation note* Diagnosis Onset Date Resolution Status Desires (vaginal after ) trial acute Factor 5 Leiden mutation, heterozygous acute Obesity (BMI 30.0-34.9) acut e acute Supervision of high risk , antepartum acute Desires (vaginal after ) trial acute Encounter to determine viability of acute Factor 5 Leiden mutation, heterozygous acute Obesity (BMI 30.0-34.9) acut e Positive GBS test acute acute Supervision of high risk , antepartum acute Desires (vaginal after ) trial acute Encounter to determine viability of acute Factor 5 Leiden mutation, heterozygous acute Obesity (BMI 30.0-34.9) acut e Positive GBS test acute acute Supervision of high risk , antepartum acute Susceptible to varicella (no n-immune), currently acute [facility] Work Phone: Evaluation note* Diagnosis Onset Date Resolution Status Desires (vaginal after ) trial acute Factor 5 Leiden mutation, heterozygous acute Obesity (BMI 30.0-34.9) acut e acute Supervision of high risk , antepartum acute Desires (vaginal after ) trial acute Factor 5 Leiden mutation, heterozygous acute Obesity (BMI 30.0-34.9) acut e Positive GBS test acute acute Supervision of high risk , antepartum acute Encounter to determine viability of resolved Desires (vaginal after ) trial acute Factor 5 Leiden mutation, heterozygous acute Obesity (BMI 30.0-34.9) acut e Positive GBS test acute acute Supervision of high risk , antepartum acute Susceptible to varicella (no n-immune), currently acute Encounter to determine viability of resolved Desires (vaginal after ) trial acute Factor 5 Leiden mutation, heterozygous acute Obesity (BMI 30.0-34.9) acut e Positive GBS test acute acute Previous delivery affecting acute Supervision of high risk , antepartum acute Susceptible to varicella (no n-immune), currently acute [facility] Work Phone: Evaluation note* Diagnosis Onset Date Resolution Status Desires (vaginal after ) trial acute Factor 5 Leiden mutation, heterozygous acute Obesity (BMI 30.0-34.9) acut e Positive GBS test acute acute Supervision of high risk , antepartum acute Encounter to determine viability of resolved Desires (vaginal after ) trial acute Factor 5 Leiden mutation, heterozygous acute Obesity (BMI 30.0-34.9) acut e Positive GBS test acute acute Supervision of high risk , antepartum acute Susceptible to varicella (no n-immune), currently acute Encounter to determine viability of resolved Desires (vaginal after ) trial acute Factor 5 Leiden mutation, heterozygous acute Obesity (BMI 30.0-34.9) acut e Positive GBS test acute acute Previous delivery affecting acute Supervision of high risk , antepartum acute Susceptible to varicella (no n-immune), currently acute Desires (vaginal after ) trial acute Factor 5 Leiden mutation, heterozygous acute Obesity (BMI 30.0-34.9) acut e Positive GBS test acute acute Previous delivery affecting acute Supervision of high risk , antepartum acute Susceptible to varicella (no n-immune), currently acute Desires (vaginal after ) trial acute Factor 5 Leiden mutation, heterozygous acute Obesity (BMI 30.0-34.9) acut e Positive GBS test acute acute Previous delivery affecting acute Supervision of high risk , antepartum acute Susceptible to varicella (no n-immune), currently acute [facility] Work Phone: Evaluation note* Diagnosis Onset Date Resolution Status Factor 5 Leiden mutation, heterozygous acute Susceptible to varicella (no n-immune), currently acute Desires (vaginal after ) trial resolved Obesity (BMI 30.0-34.9) reso lved Positive GBS test resolved resolved Previous delivery affecting resolved Supervision of high risk , antepartum resolved Factor 5 Leiden mutation, heterozygous acute Susceptible to varicella (no n-immune), currently acute Desires (vaginal after ) trial resolved Obesity (BMI 30.0-34.9) reso lved Positive GBS test resolved resolved Previous delivery affecting resolved Supervision of high risk , antepartum resolved Factor 5 Leiden mutation, heterozygous acute Susceptible to varicella (no n-immune), currently acute Desires (vaginal after ) trial resolved Obesity (BMI 30.0-34.9) reso lved Positive GBS test resolved resolved Previous delivery affecting resolved Supervision of high risk , antepartum resolved Factor 5 Leiden mutation, heterozygous acute Susceptible to varicella (no n-immune), currently acute Desires (vaginal after ) trial resolved Obesity (BMI 30.0-34.9) reso lved Positive GBS test resolved resolved Previous delivery affecting resolved Supervision of high risk , antepartum resolved Factor 5 Leiden mutation, heterozygous acute Susceptible to varicella (no n-immune), currently acute Desires (vaginal after ) trial resolved Obesity (BMI 30.0-34.9) reso lved Positive GBS test resolved resolved Previous delivery affecting resolved Supervision of high risk , antepartum resolved Factor 5 Leiden mutation, heterozygous acute Susceptible to varicella (no n-immune), currently acute Desires (vaginal after ) trial resolved Obesity (BMI 30.0-34.9) reso lved Positive GBS test resolved resolved Previous delivery affecting resolved Supervision of high risk , antepartum resolved Factor 5 Leiden mutation, heterozygous acute Susceptible to varicella (no n-immune), currently acute Desires (vaginal after ) trial resolved Obesity (BMI 30.0-34.9) reso lved Positive GBS test resolved resolved Previous delivery affecting resolved Supervision of high risk , antepartum resolved Factor 5 Leiden mutation, heterozygous acute Susceptible to varicella (no n-immune), currently acute Desires (vaginal after ) trial resolved Obesity (BMI 30.0-34.9) reso lved Positive GBS test resolved resolved Previous delivery affecting resolved Supervision of high risk , antepartum resolved Factor 5 Leiden mutation, heterozygous acute Susceptible to varicella (no n-immune), currently acute Desires (vaginal after ) trial resolved Obesity (BMI 30.0-34.9) reso lved Positive GBS test resolved resolved Previous delivery affecting resolved Supervision of high risk , antepartum resolved Factor 5 Leiden mutation, heterozygous acute Susceptible to varicella (no n-immune), currently acute Vaginal after acute Active labor at term resolve d Desires (vaginal after ) trial resolved Obesity (BMI 30.0-34.9) reso lved Positive GBS test resolved resolved Previous delivery affecting resolved Supervision of high risk , antepartum resolved [facility] Work Phone: History of Present illness [id number] presents for 2-week postop status post primary for arrest. Patient is she is doing well. Pain controlled. Bleeding improving. Bowel and bladder function returned to normal. Infant doing well. Patient is no acute concerns [employer] Work Phone: History of Present illness NarrativePatient presents for checkup. She is breast and bottlefeeding. She is a heterozygote forfactor V Leiden.[employer] Work Phone: History of Present illness NarrativePresents for annual exam. She voices no complaints and is doing well. Denies any bowel or bladder problems. Denies any breast problems. She is on progesterone only control pills due to history of factor V Leiden. 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 * Patient Instructions:Pelvic Rest: DO NOT place anything in vagina until cleared by OB Provider. * Follow-Up - OB Provider:Physician/Dept/Service: Dayana Chaudhry to Schedule in: 2 weeksComments: Incision check * Gold Form - Other Clinicians:Other Clinician Instructions: Any [...] your provider if you have: BLEEDING, soaking t hrough a pad/hour, or blood clots the size [...] feelings of depression (such as depressed mood, lossof interest in enjoyable things, unable to care for yourself, trouble sleeping, lack of appetite, or feeling worthless). If you can t reach your provider or symptoms worsen, call 911 or go to [facility] room. *Information obtained from FAIZAN s: Save Your Life: Get Care for These POST- Warning SignsOn Behalf on the [facility] Maternity Staff, Congratulations on your . [...] us a call. Also, please join our [facility] Support Group which meets the wednesday of every month at 10 am in the OB unit. No need to register. If you have any questions please call us at [phone]. Again, Congratulations! Warmest Regards,[facility] Maternity Staff [facility] HospitalProgress note Author Roro Troy [facility] Note Date/Time March 21, 2025 10:42[facility] [address] [facility], [address] [place] [address] OFFICE VISIT Date of Service: 03/21/25 MR#: [id number] Acct: [id number] Name: CANDI MOYA Rep #: [id number] : 1990 Provider: Dr. Felipe Troy MD Age/Sex: 34/F Location: [facility] Status: Signed Intake Vital Signs 01/16/25 13:51 03/07/25 14:18 03/21/25 10:19 03/21/25 10:21 Height 5 ft 4 in 5 ft 4 in 5 ft 4 in 5 ft 4 in Weight: 209 lb 8 oz BMI 35.9 BP 106/71 Intake Visit Reasons: 34 wk ob Valve Maker Required: No Is patient in pain?: No Allergies No Known Allergies Allergy (Verified 03/21/25 10:18) Medications ?Medication ?Instructions ?Recorded ?Confirmed ?Type PNV 153-FA 400 mcg-om3 35 mg-dha 1 tab PO DAILY pregna ncy 09/05/24 03/21/25 History 25 mg-epa 5 mg-fish oil chew tablet magnesium 250 mg tablet 250 mg PO QDAY 09/05/2403/05 History Held on 02/06/25. Instructions: per pt Last Menstrual Period: 07/21/24 Zika: Zika virus screening: Negative : No PFSH PFSH Medical History Vaginal after Blood clotting disorder Encounter to determine viability of History of abnormal cervical Pap smear Pre-conception counseling Surgical History S/P Family History Grandmother Ovarian cancer CVA (cerebral vascular accident) Diabetes Grandfather CVA (cerebral vascular accident) Factor V Leiden Maternal Grandmother Diabetes Social History adopted: No household members: spouse and children housing: house number of children: 2 current occupational status: unemployed 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 current occupational exposures/hazards: No pets and animals: No history of recent travel: No sexually active: Yes Smoking Status: Never smoker alcohol intake: never substance use type: does not use well-balanced diet: daily or most days caffeine: Yes Type: carbonated beverages Number of servings: 1 eating out: rarely or never during the past year weight has: increased > 10 lbs what type of physical activity do you participate in: none 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 Date Name GA/Weeks Outcome Route Bth Weight Gen Labor Lgth Anesthesia Del Locatn Provider FOB 02/04/21 Edmun 39 live - full term 7lb 14oz [facility] Hay 08/21/23 Flaco 39 live - full term 9#11oz Male none WC KRISTAL Hay Delivery Date: 02/04/21 Last Updated by: Priscilla Gandara, DO was an induction for LGA, cervix was swelling shut therefore csection was done Delivery Date: 08/21/23 Last Updated by: Laura Rowell Baby transported due to breathing issues several hours after delivery HPI 34 wk ob Details: CANDI MOYA is a 34 year old who presents for routine OB visit. OB Visit ANDREA Calculator Estimated Delivery Date Method Current WG Current Estimate 04/27/25 LMP (Certain) 34w 5d Other Estimates 04/27/25 Ultrasound #1 34w 5d Expected Delivery Route/Plan patient counseled regarding risks/benefits of trial of labor versus repeat . ACOG/uptodate education given to patient. [] % likelihood of success per calculator TOLAC consent form signed: [] Labor Preferences- CB/BF classes: no labor support person: Octavio labor intervention preferences: [] pain management options preferred: limited cut cord/dad catch: no : you PP control planned: discussed discussed possible routes of delivery and associated risks: [] special requests: [] patient counseled regarding risks/benefits of trial of labor versus repeat . ACOG/uptodate education given to patient. [] % likelihood of success per calculator TOLAC consent form signed: [] Specific Issue/Plans Covid status: [] Flu vaccine: [] Tdap vaccine: declines Rhogam: na LARC form signed: yes Problem list reviewed and updated with the most current plan of care details and appropriate orders placed. Relevant counseling for the gestational age provided. Continue routine care and follow up unless otherwise noted in visit notes/problem list details Initial Weight: 207 lb Date -?-?-?-?-?-?-?-?-?-?-?-?- EGA Weight BP Urine Prot -?-?-?-?-?-?-?-?-?-?-?-?- Glucose FHR FuHt Pres Dilation -?-?-?-?-?-?-?-?-?-?-?-?- Effaced St Visit Note 09/22/24 -?-?-?-?-?-?-?-?-?-?-?-?- 9w 0d 207 lb 4 oz (+4 oz) 126/79 -?-?-?-?-?-?-?-?-?-?-?-?- 188 -?-?-?-?-?-?-?-?-?-?-?-?- KW- CRL cons wit h dates. Declines NIPT 10/24/24 -?-?-?-?-?-?-?-?-?-?-?-?- 13w 4d 206 lb 4 oz (-12 oz) 110/76 Negative -?-?-?-?-?-?-?-?-?-?-?-?- Negative 157 -?-?-?-?-?-?-?-?-?-?-?-?- SM- no vb crampi ng 11/22/24 -?-?-?-?-?--?-?-?-?-?-?-?- 17w 5d 207 lb 8 oz (+8 oz) 113/75 Negative -?-?-?-?-?-?-?-?-?-?-?-?- Negative 145 -?-?-?-?-?-?-?-?-?-?-?-?- KW- no vb/ctx. p ossible flutters. US scheduled. AFP declined. 12/19/24 -?-?-?-?-?-?-?-?-?-?-?-?- 21w 4d 207 lb 8 oz (+8 oz) 104/70 -?-?-?-?-?-?-?-?-?-?-?-?- 140 -?-?-?-?-?-?-?-?-?-?-?-?- SM- no vb lof go od fm no regualr ctx 01/16/25 -?-?-?-?-?-?-?-?-?-?-?-?- 25w 4d 209 lb 8 oz (+2 lb 8 oz) 98/60 Negative -?-?-?-?-?-?-?-?-?-?-?-?- Negative 146 26 -?-?-?-?-?-?-?-?-?-?-?-?- -No VB, LOF. G ood FM [facility] 02/06/25 -?-?-?-?-?-?-?-?-?-?-?-?- 28w 4d 211 lb 1 oz (+4 lb 1 oz) 119/69 Negative -?-?-?-?-?-?-?-?-?-?-?-?- Negative 140 -?-?-?-?-?-?-?-?-?-?-?-?- -No VB, LOF. G ood FM. Declines tdap. Note arrhythmia. BPP today 02/23/25 -?-?-?-?-?-?-?-?-?-?-?-?- 31w 0d 209 lb 1 oz (+2 lb 1 oz) 101/69 Negative -?-?-?-?-?-?-?-?-?-?-?-?- Negative 135 32 Cephalic -?-?-?-?-?-?-?-?-?-?-?-?- LC- no vb/ctx/lo f. good fm. no arrhythmia appreciated today. 03/07/25 -?-?-?-?-?-?-?-?-?-?-?-?- 32w 5d 208 lb 6 oz (+1 lb 6 oz) 108/70 Negative -?-?-?-?-?-?-?-?-?-?-?-?- Negative 140 34 -?-?-?-?-?-?-?-?-?-?-?-?- JV- no lof, vagi nal bleeding, or dec fm. plan us at 36 weeks for position 03/21/25 -?-?-?-?-?-?-?-?-?-?-?-?- 34w 5d 209 lb 8 oz (+2 lb 8 oz) 106/71 Negative -?-?-?-?-?-?-?-?-?-?-?-?- Negative 140 35 Cephalic -?-?-?-?-?-?-?-?-?-?-?-?- SM- no vb lof go od fm n oregular ctx ACOG First Trimester First Trimester: Desire for , Alcohol, Tobacco Cessation, Illicit/Recreational Drug/Substance Use, Intimate Partner Violence, Barriers to care, Anticipated Course of Care, Use of Any medications, Sexual activity, Exercise, Dental Care, Sauna/Hot tub use, Seat Belt use, Childbirth classes/Hospital facilities, Travel, Indications for Ultrasound and Screening for Aneuploidy; Discussed Unstable Housing, Discussed Communication Barriers, Discussed Environmental/Work Hazards, Discussed Toxoplasmosis Precations and Discussed Second Trimester Second Trimester: Signs and Symptoms of Labor, Selecting a care provider, Reproductive Life Planning & Contreception, Care Planning, Depression/Anxiety and Intimate Partner Violence; Discussed Tobacco Cessation Third Trimester Third Trimester: Pain Management Plans, Labor support person(s), Immediate Larc, Signs and Symptoms of Preeclampsia, Feeding No , [place] Education, Family Medical Leave or Disability Forms, Depression and Intimate Partner Violence Results POC Urinalysis 2 Dip (Clinic) Office Urine Glucose Negative Last Edit by Renetta Ruiz on 03/21/25 10:22 Office Urine Protein Negative Last Edit by Renetta Ruiz on 03/21/25 10:22 Coding Level of Care Code OB Routine Diagnoses Breech presentation O32.1XX0 arrhythmia affecting , antepartum O36.8390 Previous delivery affecting O34.219 Supervision of high risk in third trimester O09.93 Trimester: third trimester 34 weeks gestation of Z3A.34 Weeks of gestation: 34 weeks Advanced maternal age (AMA) in Obesity affecting in second trimester, unspecified obesity type O99.212 Obesity type affecting : unspecified obesity Trimester: second trimester Hx successful (vaginal after ), currently O34.219 Susceptible to varicella (non-immune), currently O09.899; Z28.39 Factor 5 Leiden mutation, heterozygous D68.51 Assessment and Plan Assessment and Plan (1) Breech presentation: Status: Resolved Comment: at 28 weeks, plan us at 36 weeks for position, consider growth for ama (2) arrhythmia affecting , antepartum: Status: Resolved Comment: to WP for BPP (3) Previous delivery affecting : Status: Acute Comment: successful (4) Supervision of high-risk : Status: Acute Qualifiers: Trimester: third trimester Qualified Code(s): O09.93 - Supervision of high risk , unspecified, third trimester Comment: PRR, , ANDREA 04/27/25, PC Flaco Varghese, Hay (5) : Status: Acute Qualifiers: Weeks of gestation: 34 weeks Qualified Code(s): Z3A.34 - 34 weeks gestation of Comment: genetic carrier and ntd screening declined.nl anatomy (6) Advanced maternal age (AMA) in : Status: Acute Comment: nsts after 36 weeks, deliver by 41 (7) Obesity affecting : Status: Acute Qualifiers: Obesity type affecting : unspecified obesity Trimester: second trimester Qualified Code(s): O99.212 - Obesity complicating , second trimester Comment: HgbA1c (8) Hx successful (vaginal after ), currently : Status: Acute (9) Susceptible to varicella (non-immune), currently : Status: Acute (10) Factor 5 Leiden mutation, heterozygous: Status: Acute Comment: consulted with SM. no need for anticoagulants at this time Orders: Orders POC Urinalysis 2 Dip (Clinic) Today 03/21/25 1042 <Electronically signed by Roro vigil MD> Date _ Roro Good Signature: Date (if applicable) CC: ~ [facility] Work Phone: Progress note Author Renetta Hinojosa [facility] Note Date/Time April 03, 2025 1:34pm [facility] [address] [place] [address], [address] [place] [address] OFFICE VISIT Date of Service: 04/03/25 MR#: [id number] Acct: [id number] Name: CANDI MOYA Rep #: [id number] : 1990 Provider: MANISHA Hinojosa Age/Sex: 34/F Location: [facility] Status: Signed Intake Vital Signs 02/06/25 09:59 03/21/25 10:21 04/03/25 12:57 Height 5 ft 4 in 5 ft 4 in 5 ft 4 in Weight: 211 lb 6 oz BMI 36.3 BP 104/70 Intake Visit Reasons: 36 WK OB/NST Chief Complaint: 36 Week OB/NST Valve Maker Required: No Is patient in pain?: No Allergies No Known Allergies Allergy (Verified 04/03/25 12:58) Medications ?Medication ?Instructions ?Recorded ?Confirmed ?Type PNV 153-FA 400 mcg-om3 35 mg-dha 1 tab PO DAILY pregna ncy 09/05/24 04/03/25 History 25 mg-epa 5 mg-fish oil chew tablet magnesium 250 mg tablet 250 mg PO QDAY 09/05/2403/07 History Held on 02/06/25. Instructions: per pt Last Menstrual Period: 07/21/24 Zika: Zika virus screening: Negative : No PFSH PFSH Medical History Vaginal after Blood clotting disorder Encounter to determine viability of History of abnormal cervical Pap smear Pre-conception counseling Surgical History S/P Family History Grandmother Ovarian cancer CVA (cerebral vascular accident) Diabetes Grandfather CVA (cerebral vascular accident) Factor V Leiden Maternal Grandmother Diabetes Social History adopted: No household members: spouse and children housing: house number of children: 2 current occupational status: unemployed current occupation: [employer] current occupational exposures/hazards: No pets and animals: No history of recent travel: No sexually active: Yes Smoking Status: Never smoker alcohol intake: never substance use type: does not use well-balanced diet: daily or most days caffeine: Yes Type: carbonated beverages Number of servings: 1 eating out: rarely or never during the past year weight has: increased > 10 lbs what type of physical activity do you participate in: none 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 Date Name GA/Weeks Outcome Route Bth Weight Infant Gen Labor Lgth Anesthesia Del Locatn Provider FOB 02/04/21 Edmun 39 live - full term 7lb 14oz Male epidural [place] Hay 08/21/23 Flaco 39 live - full term 9#11oz Male none [facility] Delivery Date: 02/04/21 Last Updated by: Priscilla Gandara, DO was an induction for LGA, cervix was swelling shut therefore csection was done Delivery Date: 08/21/23 Last Updated by: Laura Rowell Baby transported due to breathing issues several hours after delivery HPI 36 WK OB/NST Details: CANDI MOYA is a 34 year old who presents for routine OB visit. OB Visit ANDREA Calculator Estimated Delivery Date Method Current WG Current Estimate 04/27/25 LMP (Certain) 36w 4d Other Estimates 04/27/25 Ultrasound #1 36w 4d Expected Delivery Route/Plan patient counseled regarding risks/benefits of trial of labor versus repeat . ACOG/uptodate education given to patient. [] % likelihood of success per calculator TOLAC consent form signed: [] Labor Preferences- CB/BF classes: no labor support person: Octavio labor intervention preferences: [] pain management options preferred: limited cut cord/dad catch: no : you PP control planned: discussed discussed possible routes of delivery and associated risks: [] special requests: [] patient counseled regarding risks/benefits of trial of labor versus repeat . ACOG/uptodate education given to patient. [] % likelihood of success per calculator TOLAC consent form signed: [] Specific Issue/Plans Covid status: [] Flu vaccine: [] Tdap vaccine: declines Rhogam: na LARC form signed: yes Problem list reviewed and updated with the most current plan of care details and appropriate orders placed. Relevant counseling for the gestational age provided. Continue routine care and follow up unless otherwise noted in visit notes/problem list details Initial Weight: 207 lb Date -?-?-?-?-?-?-?-?-?-?-?-?- EGA Weight BP Urine Prot -?-?-?-?-?-?-?-?-?-?-?-?- Glucose FHR FuHt Pres Dilation -?-?-?-?-?-?-?-?-?-?-?-?- Effaced St Visit Note 09/22/24 -?-?-?-?-?-?-?-?-?-?-?-?- 9w 0d 207 lb 4 oz (+4 oz) 126/79 -?-?-?-?-?-?-?-?-?-?-?-?- 188 -?-?-?-?-?-?-?-?-?-?-?-?- KW- CRL cons wit h dates. Declines NIPT 10/24/24 -?-?-?-?-?-?-?-?-?-?-?-?- 13w 4d 206 lb 4 oz (-12 oz) 110/76 Negative -?-?-?-?-?-?-?-?-?-?-?-?- Negative 157 -?-?-?-?-?-?-?-?-?-?-?-?- SM- no vb crampi ng 11/22/24 -?-?-?-?-?-?-?-?-?-?-?-?- 17w 5d 207 lb 8 oz (+8 oz) 113/75 Negative -?-?-?-?-?-?-?-?-?-?-?-?- Negative 145 -?-?-?-?-?-?-?-?-?-?-?-?- KW- no vb/ctx. p ossible flutters. US scheduled. AFP declined. 12/19/24 -?-?-?-?-?-?-?-?-?-?-?-?- 21w 4d 207 lb 8 oz (+8 oz) 104/70 -?-?-?-?-?-?-?-?-?-?-?-?- 140 -?-?-?-?-?-?-?-?-?-?-?-?- SM- no vb lof go od fm no regualr ctx 01/16/25 -?-?-?-?-?-?-?-?-?-?--?-?- 25w 4d 209 lb 8 oz (+2 lb 8 oz) 98/60 Negative -?-?-?-?-?-?-?-?-?-?-?-?- Negative 146 26 -?-?-?-?-?-?-?-?-?-?-?-?- -No VB, [facility] -?-?-?-?-?-?-?-?-?-?-?-?- 28w 4d 211 lb 1 oz (+4 lb 1 oz) 119/69 Negative -?-?-?-?-?-?-?-?-?-?-?--?- Negative 140 -?-?-?-?-?-?-?-?-?-?-?-?- MH-No VB, LOF. G ood FM. Declines tdap. Note arrhythmia. BPP today 02/23/25 -?-?-?-?-?-?-?-?-?-?-?--?- 31w 0d 209 lb 1 oz (+2 lb 1 oz) 101/69 Negative -?-?-?-?-?-?-?-?-?-?-?-?- Negative 135 32 Cephalic -?-?-?-?-?-?-?-?-?-?-?-?- LC- no vb/ctx/lo f. good fm. no arrhythmia appreciated today. 03/07/25 -?-?-?-?-?-?-?-?-?-?-?-?- 32w 5d 208 lb 6 oz (+1 lb 6 oz) 108/70 Negative -?-?-?-?-?-?-?-?-?-?-?-?- Negative 140 34 -?-?-?-?-?-?-?-?-?-?-?-?- JV- no lof, vagi nal bleeding, or dec fm. plan us at 36 weeks for position 03/21/25 -?-?-?-?-?-?-?-?-?-?-?-?- 34w 5d 209 lb 8 oz (+2 lb 8 oz) 106/71 Negative -?-?-?-?-?-?-?-?-?-?-?-?- Negative 140 35 Cephalic -?-?-?-?-?-?-?-?-?-?-?-?- SM- no vb lof go od fm n oregular ctx 04/03/25 -?-?-?-?-?-?-?-?-?-?-?-?- 36w 4d 211 lb 6 oz (+4 lb 6 oz) 104/70 Negative -?-?-?-?-?-?-?-?-?-?-?-?- Negative 135 38 Cephalic 1 .5 -?-?-?-?-?-?-?-?-?-?-?-?- 40 -3 MH-No VB, LOF. Good FM. Irreg CTX. GBS. Reactive NST ACOG First Trimester First Trimester: Desire for , Alcohol, Tobacco Cessation, Illicit/Recreational Drug/Substance Use, Intimate Partner Violence, Barriers to care, Anticipated Course of Care, Use of Any medications, Sexual activity, Exercise, Dental Care, Sauna/Hot tub use, Seat Belt use, Childbirth classes/Hospital facilities, Travel, Indications for Ultrasound and Screening for Aneuploidy; Discussed Unstable Housing, Discussed Communication Barriers, Discussed Environmental/Work Hazards, Discussed Toxoplasmosis Precations and Discussed Second Trimester Second Trimester: Signs and Symptoms of Labor, Selecting a care provider, Reproductive Life Planning & Contreception, Care Planning, Depression/Anxiety and Intimate Partner Violence; Discussed Tobacco Cessation Third Trimester Third Trimester: Pain Management Plans, Labor support person(s), Immediate Larc, Signs and Symptoms of Preeclampsia, Feeding No , Education, Family Medical Leave or Disability Forms, Depression and Intimate Partner Violence ROS Const Reports system reviewed and no additional complaints, except as documented GI Denies abdominal pain, Denies nausea and Denies vomiting Exam Const General: cooperative Nutritional Appearance: well nourished GI Palpation: soft, nontender and other (gravid) Office Procedures Non-stress Test Non-Stress Test Indications for Monitoring: Yes Advanced maternal age Heart Rate Baseline: 135 Heart Rate Variability: moderate Movement: Present Heart Rate Accelerations: Present Decelerations: Absent Contractions: Absent Impression: Yes Reactive Non-Stress Test Results POC Urinalysis 2 Dip (Clinic) Office Urine Glucose Negative Last Edit by Selene Edge on 04/03/25 13 :07 Office Urine Protein Negative Last Edit by Selnee Edge on 04/03/25 13 :07 Coding Level of Care Code OB Routine Diagnoses Supervision of high risk in third trimester O09.93 Trimester: third trimester 36 weeks gestation of Z3A.36 Weeks of gestation: 36 weeks Previous delivery affecting O34.219 Advanced maternal age (AMA) in Obesity affecting in second trimester, unspecified obesity type O99.212 Obesity type affecting : unspecified obesity Trimester: second trimester Hx successful (vaginal after ), currently O34.219 Susceptible to varicella (non-immune), currently O09.899; Z28.39 Factor 5 Leiden mutation, heterozygous D68.51 CPT Codes Non-Stress Test (93813) Assessment and Plan Assessment and Plan (1) Supervision of high-risk : Status: Acute Qualifiers: Trimester: third trimester Qualified Code(s): O09.93 - Supervision of high risk , unspecified, third trimester Comment: PRR, , ANDREA 04/27/25, PC Flaco Varghese, Hay (2) : Status: Acute Qualifiers: Weeks of gestation: 36 weeks Qualified Code(s): Z3A.36 - 36 weeks gestation of Comment: genetic carrier and ntd screening declined.nl anatomy (3) Previous delivery affecting : Status: Acute Comment: successful (4) Advanced maternal age (AMA) in : Status: Acute Comment: nsts after 36 weeks, deliver by 41; 36 wk growth US (5) Obesity affecting : Status: Acute Qualifiers: Obesity type affecting : unspecified obesity Trimester: second trimester Qualified Code(s): O99.212 - Obesity complicating , second trimester Comment: HgbA1c (6) Hx successful (vaginal after ), currently : Status: Acute (7) Susceptible to varicella (non-immune), currently : Status: Acute (8) Factor 5 Leiden mutation, heterozygous: Status: Acute Comment: consulted with . no need for anticoagulants at this time Orders: Orders OB NST Today O99.212 - Obesity complicating , second trimester POC Urinalysis 2 Dip (Clinic) Today Culture, Group B Streptococcus Today O09.93 - Supervision of high risk , unspecified, third trimester OB Limited With Biometrics Today O09.93 - Supervision of high risk , unspecified, third trimester Plan problem list reviewed and updated for most current plan of care and appropriate orders placed. Relevant counseling for the gestational age appropriate provided and ACOG education checklist updated. Continue routine care and follow up. 04/03/25 2403 <Electronically signed by Renetta flynn LOCATOR LOCATOR-C> Date _ Renetta Hinojosa NP LOCATOR-C Cosigner Signature: Date (if applicable) CC: ~ [facility] Work Phone: Reason for referral (narrative)No reason for referral information availableWSelect Medical [facility] Work Phone: Summary Purpose Family History No Family History [...] cerebrovas cular accident (CVA): Grandparent(V17.1, Z82.3) Status:Active Relationship Condition Age at Onset Recorded Date/T deepthi grandmother Malignant neoplasm of ovary Unknown Cerebrovascular accident (CVA) Unknown Diabetes mellitus Unknown grandfather Cerebrovascular accident (CVA) Unknown grandmother Diabetes mellitus Unknown Relationship Condition Age at Onset Recorded Date/T deepthi grandmother Malignant neoplasm of ovary Unknown Cerebrovascular accident (CVA) Unknown Diabetes mellitus Unknown grandfather Cerebrovascular accident (CVA) Unknown Factor V Leiden mutation Unknown grandmother Diabetes mellitus Unknown Advance Directives No Advanced Directives Records Found Advance Directive Response Recorded Date/ Time Living Will No August 21 4:34am Power of New Car Make Ready Worker No August 21, 2023 4:34am Chief Complaint PT HERE TODAY FOR PO VISIT. PT STATES SHE IS HAVING SOME ITCHING AND THE SWELLING IS GOING DOWN. PTFEELS THE INCISION IS HEALING WELL AND HAS NO CONCERNS. PT WANTS TO DISCUSS RESTRICTIONS.Patient is here for her 4 week post visit. Patient had a C/S delivery of a male on 02/04/21 at 39 weeks, weighted 7 [...] she is having 2 periods a month. Chief Complaint and Reason for Visit Chief Complaint VIABILITY INT LABS Chief Complaint VIABILITY INT LABS E ORDER Chief Complaint NOB LMP: 11/15 Encounter for supervision of normal , uns 13 WK OB Reason for Visit Desires (vagina l after ) trial Factor 5 Leiden mutation, heterozygous Obesity (BMI 30.0-34.9) Supervision of high risk , antepartum Desires (vaginal after ) trial Encounter to determine viability of Factor 5 Leiden mutation, heterozygous Obesity (BMI 30.0-34.9) Positive GBS test Supervision of high risk , antepartum Chief Complaint NOB LMP: 11/15 Encounter for supervision of normal , uns 13 WK OB 17 WK OB ANATOMY Reason for Visit Desires (vagina l after ) trial Factor 5 Leiden mutation, heterozygous Obesity (BMI 30.0-34.9) Supervision of high risk , antepartum Desires (vaginal after ) trial Encounter to determine viability of Factor 5 Leiden mutation, heterozygous Obesity (BMI 30.0-34.9) Positive GBS test Supervision of high risk , antepartum Desires (vaginal after ) trial Encounter to determine viability of Factor 5 Leiden mutation, heterozygous Obesity (BMI 30.0-34.9) Positive GBS test Supervision of high risk , antepartum Susceptible to varicella (non-immune), currently Chief Complaint NOB LMP: 11/15 Encounter for supervision of normal , uns 13 WK OB 17 WK OB ANATOMY 21 WK OB Reason for Visit Desires (vagina l after ) trial Factor 5 Leiden mutation, heterozygous Obesity (BMI 30.0-34.9) Supervision of high risk , antepartum Desires (vaginal after ) trial Factor 5 Leiden mutation, heterozygous Obesity (BMI 30.0-34.9) Positive GBS test Supervision of high risk , antepartum Encounter to determine viability of Desires (vaginal after ) trial Factor 5 Leiden mutation, heterozygous Obesity (BMI 30.0-34.9) Positive GBS test Supervision of high risk , antepartum Susceptible to varicella (non-immune), currently Encounter to determine viability of Desires (vaginal after ) trial Factor 5 Leiden mutation, heterozygous Obesity (BMI 30.0-34.9) Positive GBS test Previous delivery affecting Supervision of high risk , antepartum Susceptible to varicella (non-immune), currently Chief Complaint 13 WK OB 17 WK OB ANATOMY 21 WK OB 25 WK OB 28 WK OB/GLUCOSE Reason for Visit Desires (vagina l after ) trial Factor 5 Leiden mutation, heterozygous Obesity (BMI 30.0-34.9) Positive GBS test Supervision of high risk , antepartum Encounter to determine viability of Desires (vaginal after ) trial Factor 5 Leiden mutation, heterozygous Obesity (BMI 30.0-34.9) Positive GBS test Supervision of high risk , antepartum Susceptible to varicella (non-immune), currently Encounter to determine viability of Desires (vaginal after ) trial Factor 5 Leiden mutation, heterozygous Obesity (BMI 30.0-34.9) Positive GBS test Previous delivery affecting Supervision of high risk , antepartum Susceptible to varicella (non-immune), currently Desires (vaginal after ) trial Factor 5 Leiden mutation, heterozygous Obesity (BMI 30.0-34.9) Positive GBS test Previous delivery affecting Supervision of high risk , antepartum Susceptible to varicella (non-immune), currently Desires (vaginal after ) trial Factor 5 Leiden mutation, heterozygous Obesity (BMI 30.0-34.9) Positive GBS test Previous delivery affecting Supervision of high risk , antepartum Susceptible to varicella (non-immune), currently Chief Complaint 25 WK OB 28 WK OB/GLUCOSE 30 WK OB 32 WK OB 34 WK OB 36 WK OB OBESITY, DESIRES 37 WK OB 38 WK OB MEMBRANE SWEEP VAGINAL DELIVERY R/O LABOR Reason for Visit Factor 5 Leiden muta tion, heterozygous Susceptible to varicella (non-immune), currently Desires (vaginal after ) trial Obesity (BMI 30.0-34.9) Positive GBS test Previous delivery affecting Supervision of high risk , antepartum Factor 5 Leiden mutation, heterozygous Susceptible to varicella (non-immune), currently Desires (vaginal after ) trial Obesity (BMI 30.0-34.9) Positive GBS test Previous delivery affecting Supervision of high risk , antepartum Factor 5 Leiden mutation, heterozygous Susceptible to varicella (non-immune), currently Desires (vaginal after ) trial Obesity (BMI 30.0-34.9) Positive GBS test Previous delivery affecting Supervision of high risk , antepartum Factor 5 Leiden mutation, heterozygous Susceptible to varicella (non-immune), currently Desires (vaginal after ) trial Obesity (BMI 30.0-34.9) Positive GBS test Previous delivery affecting Supervision of high risk , antepartum Factor 5 Leiden mutation, heterozygous Susceptible to varicella (non-immune), currently Desires (vaginal after ) trial Obesity (BMI 30.0-34.9) Positive GBS test Previous delivery affecting Supervision of high risk , antepartum Factor 5 Leiden mutation, heterozygous Susceptible to varicella (non-immune), currently Desires (vaginal after ) trial Obesity (BMI 30.0-34.9) Positive GBS test Previous delivery affecting Supervision of high risk , antepartum Factor 5 Leiden mutation, heterozygous Susceptible to varicella (non-immune), currently Desires (vaginal after ) trial Obesity (BMI 30.0-34.9) Positive GBS test Previous delivery affecting Supervision of high risk , antepartum Factor 5 Leiden mutation, heterozygous Susceptible to varicella (non-immune), currently Desires (vaginal after ) trial Obesity (BMI 30.0-34.9) Positive GBS test Previous delivery affecting Supervision of high risk , antepartum Factor 5 Leiden mutation, heterozygous Susceptible to varicella (non-immune), currently Desires (vaginal after ) trial Obesity (BMI 30.0-34.9) Positive GBS test Previous delivery affecting Supervision of high risk , antepartum Factor 5 Leiden mutation, heterozygous Susceptible to varicella (non-immune), currently Vaginal after Active labor at term Desires (vaginal after ) trial Obesity (BMI 30.0-34.9) Positive GBS test Previous delivery affecting Supervision of high risk , antepartum Chief Complaint Admit Date New OB, LMP 07/21, ANDREA 04/27September 22, 2024 2:21pm Reason for Visit Admit Date Advanced maternal age (AMA) in September 22, 2024 2:21pm Factor 5 Leiden mutation, heterozygous M arch 2024 2:21pm Hx successful (vaginal after ), currently September 22, 2024 2:21pm Obesity affecting September 22, 2024 2:21pm September 22, 2024 2:2 1pm Supervision of high-risk September 22, 2024 2:21pm Susceptible to varicella (non-immune), c urrently September 22, 2024 2:21pm Chief Complaint Admit Date New OB, LMP 07/21, ANDREA 04/27September 22, 2024 2:21pm 13wk OB October 24, 2024 3:2 3pm 17wk ob November 22, 2024 2:51p m Reason for Visit Admit Date Advanced maternal age (AMA) in September 22, 2024 2:21pm Factor 5 Leiden mutation, heterozygous M arch 2024 2:21pm Hx successful (vaginal after ), currently September 22, 2024 2:21pm Obesity affecting September 22, 2024 2:21pm September 22, 2024 2:2 1pm Supervision of high-risk September 22, 2024 2:21pm Susceptible to varicella (non-immune), c urrently September 22, 2024 2:21pm Advanced maternal age (AMA) in October 24, 2024 3:23pm Factor 5 Leiden mutation, heterozygous A pril 2024 3:23pm Hx successful (vaginal after ), currently October 24, 2024 3:23pm Obesity affecting October 24, 2024 3:23pm October 24, 2024 3:2 3pm Previous delivery affecting pre gnancy October 24, 2024 3:23pm Supervision of high-risk October 24, 2024 3:23pm Susceptible to varicella (non-immune), c urrently October 24, 2024 3:23pm Advanced maternal age (AMA) in November 22, 2024 2:51pm Factor 5 Leiden mutation, heterozygous M ay 2024 2:51pm Hx successful (vaginal after ), currently November 22, 2024 2:51pm Obesity affecting November 22 2:51pm November 22, 2024 2:51p m Previous delivery affecting pre gnancy November 22, 2024 2:51pm Supervision of high-risk November 032024 2:51pm Susceptible to varicella (non-immune), c urrently November 22, 2024 2:51pm Chief Complaint Admit Date New OB, LMP 07/21, ANDREA 04/27September 22, 2024 2:21pm 13wk OB October 24, 2024 3:2 3pm 17wk ob November 22, 2024 2:51p m ANATOMY SCAN December 08, 2024 2:59p m Chief Complaint Admit Date New OB, LMP 07/21, ANDREA 04/27September 22, 2024 2:21pm 13wk OB October 24, 2024 3:2 3pm 17wk ob November 22, 2024 2:51p m ANATOMY SCAN December 08, 2024 2:59p m 21wk ob December 19, 2024 11:2 4am Reason for Visit Admit Date Advanced maternal age (AMA) in September 22, 2024 2:21pm Factor 5 Leiden mutation, heterozygous M arch 2024 2:21pm Hx successful (vaginal after ), currently September 22, 2024 2:21pm Obesity affecting September 22, 2024 2:21pm September 22, 2024 2:2 1pm Supervision of high-risk September 22, 2024 2:21pm Susceptible to varicella (non-immune), c urrently September 22, 2024 2:21pm Advanced maternal age (AMA) in October 24, 2024 3:23pm Factor 5 Leiden mutation, heterozygous A pril 2024 3:23pm Hx successful (vaginal after ), currently October 24, 2024 3:23pm Obesity affecting October 24, 2024 3:23pm October 24, 2024 3:2 3pm Previous delivery affecting pre gnancy October 24, 2024 3:23pm Supervision of high-risk October 24, 2024 3:23pm Susceptible to varicella (non-immune), c urrently October 24, 2024 3:23pm Advanced maternal age (AMA) in November 22, 2024 2:51pm Factor 5 Leiden mutation, heterozygous M ay 2024 2:51pm Hx successful (vaginal after ), currently November 22, 2024 2:51pm Obesity affecting November 22 2:51pm November 22, 2024 2:51p m Previous delivery affecting pre gnancy November 22, 2024 2:51pm Supervision of high-risk November 032024 2:51pm Susceptible to varicella (non-immune), c urrently November 22, 2024 2:51pm Advanced maternal age (AMA) in December 19, 2024 11:24am Factor 5 Leiden mutation, heterozygous J une 2024 11:24am Hx successful (vaginal after ), currently December 19, 2024 11:24am Obesity affecting December 19, 025 11:24am December 19, 2024 11:2 4am Previous delivery affecting pre gnancy December 19, 2024 11:24am Supervision of high-risk December 19, 2024 11:24am Susceptible to varicella (non-immune), c urrently December 19, 2024 11:24am Chief Complaint Admit Date New OB, LMP 07/21, ANDREA 04/27September 22, 2024 2:21pm 13wk OB October 24, 2024 3:2 3pm 17wk ob November 22, 2024 2:51p m ANATOMY SCAN December 08, 2024 2:59p m 21wk ob December 19, 2024 11:2 4am [email or web address] Supervision of high risk pregnanc y, unspeci December 26, 2024 3:19pm Chief Complaint Admit Date New OB, LMP 07/21, ANDREA 04/27September 22, 2024 2:21pm 13wk OB October 24, 2024 3:2 3pm 17wk ob November 22, 2024 2:51p m ANATOMY SCAN December 08, 2024 2:59p m 21wk ob December 19, 2024 11:2 4am [email or web address] Supervision of high risk pregnanc y, unspeci December 26, 2024 3:19pm 25 wk ob January 16, 2025 1:36 pm Reason for Visit Admit Date Advanced maternal age (AMA) in September 22, 2024 2:21pm Factor 5 Leiden mutation, heterozygous M arch 2024 2:21pm Hx successful (vaginal after ), currently September 22, 2024 2:21pm Obesity affecting September 22, 2024 2:21pm September 22, 2024 2:2 1pm Supervision of high-risk September 22, 2024 2:21pm Susceptible to varicella (non-immune), c urrently September 22, 2024 2:21pm Advanced maternal age (AMA) in October 24, 2024 3:23pm Factor 5 Leiden mutation, heterozygous A pril 2024 3:23pm Hx successful (vaginal after ), currently October 24, 2024 3:23pm Obesity affecting October 24, 2024 3:23pm October 24, 2024 3:2 3pm Previous delivery affecting pre gnancy October 24, 2024 3:23pm Supervision of high-risk October 24, 2024 3:23pm Susceptible to varicella (non-immune), c urrently October 24, 2024 3:23pm Advanced maternal age (AMA) in November 22, 2024 2:51pm Factor 5 Leiden mutation, heterozygous M ay 2024 2:51pm Hx successful (vaginal after ), currently November 22, 2024 2:51pm Obesity affecting November 22 2:51pm November 22, 2024 2:51p m Previous delivery affecting pre gnancy November 22, 2024 2:51pm Supervision of high-risk November 032024 2:51pm Susceptible to varicella (non-immune), c urrently November 22, 2024 2:51pm Advanced maternal age (AMA) in December 19, 2024 11:24am Factor 5 Leiden mutation, heterozygous J une 2024 11:24am Hx successful (vaginal after ), currently December 19, 2024 11:24am Obesity affecting December 19, 025 11:24am December 19, 2024 11:2 4am Previous delivery affecting pre gnancy December 19, 2024 11:24am Supervision of high-risk December 19, 2024 11:24am Susceptible to varicella (non-immune), c urrently December 19, 2024 11:24am Advanced maternal age (AMA) in January 16, 2025 1:36pm Factor 5 Leiden mutation, heterozygous J walter 2024 1:36pm Hx successful (vaginal after ), currently January 16, 2025 1:36pm Obesity affecting January 16 1:36pm January 16, 2025 1:36 pm Previous delivery affecting pre gnancy January 16, 2025 1:36pm Supervision of high-risk January 16, 2025 1:36pm Susceptible to varicella (non-immune), c urrently January 16, 2025 1:36pm Chief Complaint Admit Date 13wk OB October 24, 2024 3:2 3pm 17wk ob November 22, 2024 2:51p m ANATOMY SCAN December 08, 2024 2:59p m 21wk ob December 19, 2024 11:2 4am [email or web address] Supervision of high risk pregnanc y, unspeci December 26, 2024 3:19pm 25 wk ob January 16, 2025 1:36 pm 28wk ob/glucose February 06, 2025 9:3 7am Reason for Visit Admit Date Advanced maternal age (AMA) in October 24, 2024 3:23pm Factor 5 Leiden mutation, heterozygous A pril 2024 3:23pm Hx successful (vaginal after ), currently October 24, 2024 3:23pm Obesity affecting October 24, 2024 3:23pm October 24, 2024 3:2 3pm Previous delivery affecting pre gnancy October 24, 2024 3:23pm Supervision of high-risk October 24, 2024 3:23pm Susceptible to varicella (non-immune), c urrently October 24, 2024 3:23pm Advanced maternal age (AMA) in November 22, 2024 2:51pm Factor 5 Leiden mutation, heterozygous M ay 2024 2:51pm Hx successful (vaginal after ), currently November 22, 2024 2:51pm Obesity affecting November 22 2:51pm November 22, 2024 2:51p m Previous delivery affecting pre gnancy November 22, 2024 2:51pm Supervision of high-risk November 032024 2:51pm Susceptible to varicella (non-immune), c urrently November 22, 2024 2:51pm Advanced maternal age (AMA) in December 19, 2024 11:24am Factor 5 Leiden mutation, heterozygous J une 2024 11:24am Hx successful (vaginal after ), currently December 19, 2024 11:24am Obesity affecting December 19, 025 11:24am December 19, 2024 11:2 4am Previous delivery affecting pre gnancy December 19, 2024 11:24am Supervision of high-risk December 19, 2024 11:24am Susceptible to varicella (non-immune), c urrently December 19, 2024 11:24am Advanced maternal age (AMA) in January 16, 2025 1:36pm Factor 5 Leiden mutation, heterozygous J walter 2024 1:36pm Hx successful (vaginal after ), currently January 16, 2025 1:36pm Obesity affecting January 16, 025 1:36pm January 16, 2025 1:36 pm Previous delivery affecting pre gnancy January 16, 2025 1:36pm Supervision of high-risk January 16, 2025 1:36pm Susceptible to varicella (non-immune), c urrently January 16, 2025 1:36pm Advanced maternal age (AMA) in February 06, 2025 9:37am Factor 5 Leiden mutation, heterozygous A ug2024 9:37am Hx successful (vaginal after ), currently February 06, 2025 9:37am Obesity affecting February 06, 2025 9:37am February 06, 2025 9:3 7am Previous delivery affecting pre gnancy February 06, 2025 9:37am Supervision of high-risk Augus 2024 9:37am Susceptible to varicella (non-immune), c urrently February 06, 2025 9:37am Chief Complaint Admit Date 13wk OB October 24, 2024 3:2 3pm 17wk ob November 22, 2024 2:51p m ANATOMY SCAN December 08, 2024 2:59p m 21wk ob December 19, 2024 11:2 4am O09.90 Supervision of high risk pregnanc y, unspeci December 26, 2024 3:19pm 25 wk ob January 16, 2025 1:36 pm 28wk ob/glucose February 06, 2025 9:3 7am BPP February 06, 2025 9:3 9am Reason for Visit Admit Date Advanced maternal age (AMA) in October 24, 2024 3:23pm Factor 5 Leiden mutation, heterozygous A pril 2024 3:23pm Hx successful (vaginal after ), currently October 24, 2024 3:23pm Obesity affecting October 24, 2024 3:23pm October 24, 2024 3:2 3pm Previous delivery affecting pre gnancy October 24, 2024 3:23pm Supervision of high-risk October 24, 2024 3:23pm Susceptible to varicella (non-immune), c urrently October 24, 2024 3:23pm Advanced maternal age (AMA) in November 22, 2024 2:51pm Factor 5 Leiden mutation, heterozygous M ay 2024 2:51pm Hx successful (vaginal after ), currently November 22, 2024 2:51pm Obesity affecting November 22 2:51pm November 22, 2024 2:51p m Previous delivery affecting pre gnancy November 22, 2024 2:51pm Supervision of high-risk November 032024 2:51pm Susceptible to varicella (non-immune), c urrently November 22, 2024 2:51pm Advanced maternal age (AMA) in December 19, 2024 11:24am Factor 5 Leiden mutation, heterozygous J une 2024 11:24am Hx successful (vaginal after ), currently December 19, 2024 11:24am Obesity affecting December 19 025 11:24am December 19, 2024 11:2 4am Previous delivery affecting pre gnancy December 19, 2024 11:24am Supervision of high-risk December 19, 2024 11:24am Susceptible to varicella (non-immune), c urrently December 19, 2024 11:24am Advanced maternal age (AMA) in January 16, 2025 1:36pm Factor 5 Leiden mutation, heterozygous J walter 2024 1:36pm Hx successful (vaginal after ), currently January 16, 2025 1:36pm Obesity affecting January 16 1:36pm January 16, 2025 1:36 pm Previous delivery affecting pre gnancy January 16, 2025 1:36pm Supervision of high-risk January 16, 2025 1:36pm Susceptible to varicella (non-immune), c urrently January 16, 2025 1:36pm Advanced maternal age (AMA) in February 06, 2025 9:37am Factor 5 Leiden mutation, heterozygous A ugust 2024 9:37am arrhythmia affecting , an tepartum February 06, 2025 9:37am Hx successful (vaginal after ), currently February 06, 2025 9:37am Obesity affecting February 06, 2025 9:37am February 06, 2025 9:3 7am Previous delivery affecting pre gnancy February 06, 2025 9:37am Supervision of high-risk Augus t 2024 9:37am Susceptible to varicella (non-immune), c urrently February 06, 2025 9:37am Chief Complaint Admit Date 17wk ob November 22, 2024 2:51p m ANATOMY SCAN December 08, 2024 2:59p m 21wk ob December 19, 2024 11:2 4am O09.90 Supervision of high risk pregnanc y, unspeci December 26, 2024 3:19pm 25 wk ob January 16, 2025 1:36 pm 28wk ob/glucose February 06, 2025 9:3 7am BPP February 06, 2025 9:3 9am BPP February 06, 2025 8:2 0pm 30wk ob February 23, 2025 2: 17pm Reason for Visit Admit Date Advanced maternal age (AMA) in November 22, 2024 2:51pm Factor 5 Leiden mutation, heterozygous M ay 2024 2:51pm Hx successful (vaginal after ), currently November 22, 2024 2:51pm Obesity affecting November 22 2:51pm November 22, 2024 2:51p m Previous delivery affecting pre gnancy November 22, 2024 2:51pm Supervision of high-risk November 032024 2:51pm Susceptible to varicella (non-immune), c urrently November 22, 2024 2:51pm Advanced maternal age (AMA) in December 19, 2024 11:24am Factor 5 Leiden mutation, heterozygous J une 2024 11:24am Hx successful (vaginal after ), currently December 19, 2024 11:24am Obesity affecting December 19 11:24am December 19, 2024 11:2 4am Previous delivery affecting pre gnancy December 19, 2024 11:24am Supervision of high-risk December 19, 2024 11:24am Susceptible to varicella (non-immune), c urrently December 19, 2024 11:24am Advanced maternal age (AMA) in January 16, 2025 1:36pm Factor 5 Leiden mutation, heterozygous J walter 2024 1:36pm Hx successful (vaginal after ), currently January 16, 2025 1:36pm Obesity affecting January 16, 2 025 1:36pm January 16, 2025 1:36 pm Previous delivery affecting pre gnancy January 16, 2025 1:36pm Supervision of high-risk January 16, 2025 1:36pm Susceptible to varicella (non-immune), c urrently January 16, 2025 1:36pm Advanced maternal age (AMA) in February 06, 2025 9:37am Factor 5 Leiden mutation, heterozygous A ugust 2024 9:37am arrhythmia affecting , an tepartum February 06, 2025 9:37am Hx successful (vaginal after ), currently February 06, 2025 9:37am Obesity affecting February 06, 2025 9:37am February 06, 2025 9:3 7am Previous delivery affecting pre gnancy February 06, 2025 9:37am Supervision of high-risk Augus t 2024 9:37am Susceptible to varicella (non-immune), c urrently February 06, 2025 9:37am Advanced maternal age (AMA) in February 06, 2025 9:39am Breech presentation February 06, 2025 9:3 9am Factor 5 Leiden mutation, heterozygous A ugust 2024 9:39am arrhythmia affecting , an tepartum February 06, 2025 9:39am Hx successful (vaginal after ), currently February 06, 2025 9:39am Obesity affecting February 06, 2025 9:39am February 06, 2025 9:3 9am Previous delivery affecting pre gnancy February 06, 2025 9:39am Supervision of high-risk Augus t 2024 9:39am Susceptible to varicella (non-immune), c urrently February 06, 2025 9:39am Advanced maternal age (AMA) in February 23, 2025 2:17pm Breech presentation February 23, 2025 2: 17pm Factor 5 Leiden mutation, heterozygous A ugust 2024 2:17pm arrhythmia affecting , an tepartum February 23, 2025 2:17pm Hx successful (vaginal after ), currently February 23, 2025 2:17pm Obesity affecting February 23, 2025 2:17pm February 23, 2025 2: 17pm Previous delivery affecting pre gnancy February 23, 2025 2:17pm Supervision of high-risk Augus t 2024 2:17pm Susceptible to varicella (non-immune), c urrently February 23, 2025 2:17pm Chief Complaint Admit Date 17wk ob November 22, 2024 2:51p m ANATOMY SCAN December 08, 2024 2:59p m 21wk ob December 19, 2024 11:2 4am O09.90 Supervision of high risk pregnanc y, unspeci December 26, 2024 3:19pm 25 wk ob January 16, 2025 1:36 pm 28wk ob/glucose February 06, 2025 9:3 7am BPP February 06, 2025 9:3 9am BPP February 06, 2025 8:2 0pm 30wk ob February 23, 2025 2: 17pm 32wk ob March 07, 2025 2:12pm Reason for Visit Admit Date Advanced maternal age (AMA) in November 22, 2024 2:51pm Factor 5 Leiden mutation, heterozygous M ay 2024 2:51pm Hx successful (vaginal after ), currently November 22, 2024 2:51pm Obesity affecting November 22 2:51pm November 22, 2024 2:51p m Previous delivery affecting pre gnancy November 22, 2024 2:51pm Supervision of high-risk November 032024 2:51pm Susceptible to varicella (non-immune), c urrently November 22, 2024 2:51pm Advanced maternal age (AMA) in December 19, 2024 11:24am Factor 5 Leiden mutation, heterozygous J une 2024 11:24am Hx successful (vaginal after ), currently December 19, 2024 11:24am Obesity affecting December 19 025 11:24am December 19, 2024 11:2 4am Previous delivery affecting pre gnancy December 19, 2024 11:24am Supervision of high-risk December 19, 2024 11:24am Susceptible to varicella (non-immune), c urrently December 19, 2024 11:24am Advanced maternal age (AMA) in January 16, 2025 1:36pm Factor 5 Leiden mutation, heterozygous J walter 2024 1:36pm Hx successful (vaginal after ), currently January 16, 2025 1:36pm Obesity affecting January 16, 2 025 1:36pm January 16, 2025 1:36 pm Previous delivery affecting pre gnancy January 16, 2025 1:36pm Supervision of high-risk January 16, 2025 1:36pm Susceptible to varicella (non-immune), c urrently January 16, 2025 1:36pm Advanced maternal age (AMA) in February 06, 2025 9:37am Factor 5 Leiden mutation, heterozygous A ugust 2024 9:37am arrhythmia affecting , an tepartum February 06, 2025 9:37am Hx successful (vaginal after ), currently February 06, 2025 9:37am Obesity affecting February 06, 2025 9:37am February 06, 2025 9:3 7am Previous delivery affecting pre gnancy February 06, 2025 9:37am Supervision of high-risk 2024 9:37am Susceptible to varicella (non-immune), c urrently February 06, 2025 9:37am Advanced maternal age (AMA) in February 06, 2025 9:39am Breech presentation February 06, 2025 9:3 9am Factor 5 Leiden mutation, heterozygous A ugust 2024 9:39am arrhythmia affecting , an tepartum February 06, 2025 9:39am Hx successful (vaginal after ), currently February 06, 2025 9:39am Obesity affecting February 06, 2025 9:39am February 06, 2025 9:3 9am Previous delivery affecting pre gnancy February 06, 2025 9:39am Supervision of high-risk Febus t 2024 9:39am Susceptible to varicella (non-immune), c urrently February 06, 2025 9:39am Advanced maternal age (AMA) in February 23, 2025 2:17pm Breech presentation February 23, 2025 2: 17pm Factor 5 Leiden mutation, heterozygous A ugust 2024 2:17pm arrhythmia affecting , an tepartum February 23, 2025 2:17pm Hx successful (vaginal after ), currently February 23, 2025 2:17pm Obesity affecting February 23, 2025 2:17pm February 23, 2025 2: 17pm Previous delivery affecting pre gnancy February 23, 2025 2:17pm Supervision of high-risk Augus t 2024 2:17pm Susceptible to varicella (non-immune), c urrently February 23, 2025 2:17pm Advanced maternal age (AMA) in March 07, 2025 2:12pm Breech presentation March 07, 2025 2:12pm Factor 5 Leiden mutation, heterozygous S eptember 2024 2:12pm arrhythmia affecting , an tepartum March 07, 2025 2:12pm Hx successful (vaginal after ), currently March 07, 2025 2:12pm Obesity affecting March 2:12pm March 07, 2025 2:12pm Previous delivery affecting pre gnancy March 07, 2025 2:12pm Supervision of high-risk Septe mber 2024 2:12pm Susceptible to varicella (non-immune), c urrently March 07, 2025 2:12pm Chief Complaint Admit Date 17wk ob November 22, 2024 2:51p m ANATOMY SCAN December 08, 2024 2:59p m 21wk ob December 19, 2024 11:2 4am O09.90 Supervision of high risk pregnanc y, unspeci December 26, 2024 3:19pm 25 wk ob January 16, 2025 1:36 pm 28wk ob/glucose February 06, 2025 9:3 7am BPP February 06, 2025 9:3 9am BPP February 06, 2025 8:2 0pm 30wk ob February 23, 2025 2: 17pm 32wk ob March 07, 2025 2:12pm 34 wk ob March 21, 2025 9:49am Reason for Visit Admit Date Advanced maternal age (AMA) in November 22, 2024 2:51pm Factor 5 Leiden mutation, heterozygous M ay 2024 2:51pm Hx successful (vaginal after ), currently November 22, 2024 2:51pm Obesity affecting November 22 2:51pm November 22, 2024 2:51p m Previous delivery affecting pre gnancy November 22, 2024 2:51pm Supervision of high-risk November 032024 2:51pm Susceptible to varicella (non-immune), c urrently November 22, 2024 2:51pm Advanced maternal age (AMA) in December 19, 2024 11:24am Factor 5 Leiden mutation, heterozygous J une 2024 11:24am Hx successful (vaginal after ), currently December 19, 2024 11:24am Obesity affecting December 19 025 11:24am December 19, 2024 11:2 4am Previous delivery affecting pre gnancy December 19, 2024 11:24am Supervision of high-risk December 19, 2024 11:24am Susceptible to varicella (non-immune), c urrently December 19, 2024 11:24am Advanced maternal age (AMA) in January 16, 2025 1:36pm Factor 5 Leiden mutation, heterozygous J walter 2024 1:36pm Hx successful (vaginal after ), currently January 16, 2025 1:36pm Obesity affecting January 16 025 1:36pm January 16, 2025 1:36 pm Previous delivery affecting pre gnancy January 16, 2025 1:36pm Supervision of high-risk January 16, 2025 1:36pm Susceptible to varicella (non-immune), c urrently January 16, 2025 1:36pm Advanced maternal age (AMA) in February 06, 2025 9:37am Factor 5 Leiden mutation, heterozygous A ug2024 9:37am Hx successful (vaginal after ), currently February 06, 2025 9:37am Obesity affecting February 06, 2025 9:37am February 06, 2025 9:3 7am Previous delivery affecting pre gnancy February 06, 2025 9:37am Supervision of high-risk Augus t 2024 9:37am Susceptible to varicella (non-immune), c urrently February 06, 2025 9:37am arrhythmia affecting , an tepartum February 06, 2025 9:37am Advanced maternal age (AMA) in February 06, 2025 9:39am Factor 5 Leiden mutation, heterozygous A ugust 2024 9:39am Hx successful (vaginal after ), currently February 06, 2025 9:39am Obesity affecting February 06, 2025 9:39am February 06, 2025 9:3 9am Previous delivery affecting pre gnancy February 06, 2025 9:39am Supervision of high-risk Augus t 2024 9:39am Susceptible to varicella (non-immune), c urrently February 06, 2025 9:39am Breech presentation February 06, 2025 9:3 9am arrhythmia affecting , an tepartum February 06, 2025 9:39am Advanced maternal age (AMA) in February 23, 2025 2:17pm Factor 5 Leiden mutation, heterozygous A ugust 2024 2:17pm Hx successful (vaginal after ), currently February 23, 2025 2:17pm Obesity affecting February 23, 2025 2:17pm February 23, 2025 2: 17pm Previous delivery affecting pre gnancy February 23, 2025 2:17pm Supervision of high-risk Augus t 2024 2:17pm Susceptible to varicella (non-immune), c urrently February 23, 2025 2:17pm Breech presentation February 23, 2025 2: 17pm arrhythmia affecting , an tepartum February 23, 2025 2:17pm Advanced maternal age (AMA) in March 07, 2025 2:12pm Factor 5 Leiden mutation, heterozygous S eptember 2024 2:12pm Hx successful (vaginal after ), currently March 07, 2025 2:12pm Obesity affecting March 2:12pm March 07, 2025 2:12pm Previous delivery affecting pre gnancy March 07, 2025 2:12pm Supervision of high-risk Septe mber 2024 2:12pm Susceptible to varicella (non-immune), c urrently March 07, 2025 2:12pm Breech presentation March 07, 2025 2:12pm arrhythmia affecting , an tepartum March 07, 2025 2:12pm Advanced maternal age (AMA) in March 21, 2025 9:49am Factor 5 Leiden mutation, heterozygous S eptember 2024 9:49am Hx successful (vaginal after ), currently March 21, 2025 9:49am Obesity affecting March [id number] 9:49am March 21, 2025 9:49am Previous delivery affecting pre gnancy March 21, 2025 9:49am Supervision of high-risk Gabe mber 2024 9:49am Susceptible to varicella (non-immune), c urrently March 21, 2025 9:49am Breech presentation March 21, 2025 9:49am arrhythmia affecting , an tepartum March 21, 2025 9:49am Chief Complaint Admit Date ANATOMY SCAN December 08, 2024 2:59p m 21wk ob December 19, 2024 11:2 4am O09.90 Supervision of high risk pregnanc y, unspeci December 26, 2024 3:19pm 25 wk ob January 16, 2025 1:36 pm 28wk ob/glucose February 06, 2025 9:3 7am BPP February 06, 2025 9:3 9am BPP February 06, 2025 8:2 0pm 30wk ob February 23, 2025 2: 17pm 32wk ob March 07, 2025 2:12pm 34 wk ob March 21, 2025 9:49am 36 WK OB/NST April 03, 2025 12:53pm Reason for Visit Admit Date Advanced maternal age (AMA) in December 19, 2024 11:24am Factor 5 Leiden mutation, heterozygous J une 2024 11:24am Hx successful (vaginal after ), currently December 19, 2024 11:24am Obesity affecting December 19, 025 11:24am December 19, 2024 11:2 4am Previous delivery affecting pre gnancy December 19, 2024 11:24am Supervision of high-risk December 19, 2024 11:24am Susceptible to varicella (no n-immune), currently December 19, 2024 11:24am Advanced maternal age (AMA) in January 16, 2025 1:36pm Factor 5 Leiden mutation, heterozygous J walter 2024 1:36pm Hx successful (vaginal after ), currently January 16, 2025 1:36pm Obesity affecting January 16, 025 1:36pm January 16, 2025 1:36 pm Previous delivery affecting pre gnancy January 16, 2025 1:36pm Supervision of high-risk January 16, 2025 1:36pm Susceptible to varicella (no n-immune), currently January 16, 2025 1:36pm Advanced maternal age (AMA) in February 06, 2025 9:37am Factor 5 Leiden mutation, heterozygous A ugust 2024 9:37am Hx successful (vaginal after ), currently February 06, 2025 9:37am Obesity affecting February 06, 2025 9:37am February 06, 2025 9:3 7am Previous delivery affecting pre gnancy February 06, 2025 9:37am Supervision of high-risk Augus t 2024 9:37am Susceptible to varicella (no n-immune), currently February 06, 2025 9:37am arrhythmia affecting , an tepartum February 06, 2025 9:37am Advanced maternal age (AMA) in February 06, 2025 9:39am Factor 5 Leiden mutation, heterozygous A ugust 2024 9:39am Hx successful (vaginal after ), currently February 06, 2025 9:39am Obesity affecting February 06, 2025 9:39am February 06, 2025 9:3 9am Previous delivery affecting pre gnancy February 06, 2025 9:39am Supervision of high-risk Augus t 2024 9:39am Susceptible to varicella (no n-immune), currently February 06, 2025 9:39am Breech presentation February 06, 2025 9:3 9am arrhythmia affecting , an tepartum February 06, 2025 9:39am Advanced maternal age (AMA) in February 23, 2025 2:17pm Factor 5 Leiden mutation, heterozygous A ugust 2024 2:17pm Hx successful (vaginal after ), currently February 23, 2025 2:17pm Obesity affecting February 23, 2025 2:17pm February 23, 2025 2: 17pm Previous delivery affecting pre gnancy February 23, 2025 2:17pm Supervision of high-risk Augus t 2024 2:17pm Susceptible to varicella (no n-immune), currently February 23, 2025 2:17pm Breech presentation February 23, 2025 2: 17pm arrhythmia affecting , an tepartum February 23, 2025 2:17pm Advanced maternal age (AMA) in March 07, 2025 2:12pm Factor 5 Leiden mutation, heterozygous S eptember 2024 2:12pm Hx successful (vaginal after ), currently March 07, 2025 2:12pm Obesity affecting March 2:12pm March 07, 2025 2:12pm Previous delivery affecting pre gnancy March 07, 2025 2:12pm Supervision of high-risk [facility] 2024 2:12pm Susceptible to varicella (no n-immune), currently March 07, 2025 2:12pm Breech presentation March 07, 2025 2:12pm arrhythmia affecting , an tepartum March 07, 2025 2:12pm Advanced maternal age (AMA) in March 21, 2025 9:49am Factor 5 Leiden mutation, heterozygous S eptember 2024 9:49am Hx successful (vaginal after ), currently March 21, 2025 9:49am Obesity affecting March [id number] 9:49am March 21, 2025 9:49am Previous delivery affecting pre gnancy March 21, 2025 9:49am Supervision of high-risk [facility] 2024 9:49am Susceptible to varicella (no n-immune), currently March 21, 2025 9:49am Breech presentation March 21, 2025 9:49am arrhythmia affecting , an tepartum March 21, 2025 9:49am Advanced maternal age (AMA) in April 03, 2025 12:53pm Factor 5 Leiden mutation, heterozygous S eptember 2024 12:53pm Hx successful (vaginal after ), currently April 03, 2025 12:53pm Obesity affecting April 032024 12:53pm April 03, 2025 12:53pm Previous delivery affecting pre gnancy April 03, 2025 12:53pm Supervision of high-risk Theo mber 2024 12:53pm Susceptible to varicella (no n-immune), currently April 03, 2025 12:53pm Chief Complaint Admit Date 21wk ob December 19, 2024 11:2 4am O09.90 Supervision of high risk pregnanc y, unspeci December 26, 2024 3:19pm 25 wk ob January 16, 2025 1:36 pm 28wk ob/glucose February 06, 2025 9:3 7am BPP February 06, 2025 9:3 9am BPP February 06, 2025 8:2 0pm 30wk ob February 23, 2025 2: 17pm 32wk ob March 07, 2025 2:12pm 34 wk ob March 21, 2025 9:49am 36 WK OB/NST April 03, 2025 12:53pm 36 WEEKS GROWTH April 06, 2025 3: 36pm 37 WK OB/NST April 10, 2025 9: 38am Reason for Visit Admit Date Advanced maternal age (AMA) in December 19, 2024 11:24am Factor 5 Leiden mutation, heterozygous J [facility] 2024 11:24am Hx successful (vaginal after ), currently December 19, 2024 11:24am Obesity affecting December 19, 025 11:24am December 19, 2024 11:2 4am Previous delivery affecting pre gnancy December 19, 2024 11:24am Supervision of high-risk December 19, 2024 11:24am Susceptible to varicella (no n-immune), currently December 19, 2024 11:24am Advanced maternal age (AMA) in January 16, 2025 1:36pm Factor 5 Leiden mutation, heterozygous J [facility] 2024 1:36pm Hx successful (vaginal after ), currently January 16, 2025 1:36pm Obesity affecting January 16, 2 025 1:36pm January 16, 2025 1:36 pm Previous delivery affecting pre gnancy January 16, 2025 1:36pm Supervision of high-risk January 16, 2025 1:36pm Susceptible to varicella (no n-immune), currently January 16, 2025 1:36pm Advanced maternal age (AMA) in February 06, 2025 9:37am Factor 5 Leiden mutation, heterozygous A ugust 2024 9:37am Hx successful (vaginal after ), currently February 06, 2025 9:37am Obesity affecting February 06, 2025 9:37am February 06, 2025 9:3 7am Previous delivery affecting pre gnancy February 06, 2025 9:37am Supervision of high-risk Febus t 2024 9:37am Susceptible to varicella (no n-immune), currently February 06, 2025 9:37am arrhythmia affecting , an tepartum February 06, 2025 9:37am Advanced maternal age (AMA) in February 06, 2025 9:39am Factor 5 Leiden mutation, heterozygous A ugust 2024 9:39am Hx successful (vaginal after ), currently February 06, 2025 9:39am Obesity affecting February 06, 2025 9:39am February 06, 2025 9:3 9am Previous delivery affecting pre gnancy February 06, 2025 9:39am Supervision of high-risk Febus t 2024 9:39am Susceptible to varicella (no n-immune), currently February 06, 2025 9:39am Breech presentation February 06, 2025 9:3 9am arrhythmia affecting , an tepartum February 06, 2025 9:39am Advanced maternal age (AMA) in February 23, 2025 2:17pm Factor 5 Leiden mutation, heterozygous A ugust 2024 2:17pm Hx successful (vaginal after ), currently February 23, 2025 2:17pm Obesity affecting February 23, 2025 2:17pm February 23, 2025 2: 17pm Previous delivery affecting pre gnancy February 23, 2025 2:17pm Supervision of high-risk Augus t 2024 2:17pm Susceptible to varicella (no n-immune), currently February 23, 2025 2:17pm Breech presentation February 23, 2025 2: 17pm arrhythmia affecting , an tepartum February 23, 2025 2:17pm Advanced maternal age (AMA) in March 07, 2025 2:12pm Factor 5 Leiden mutation, heterozygous S eptember 2024 2:12pm Hx successful (vaginal after ), currently March 07, 2025 2:12pm Obesity affecting March 2:12pm March 07, 2025 2:12pm Previous delivery affecting pre gnancy March 07, 2025 2:12pm Supervision of high-risk [facility] 2024 2:12pm Susceptible to varicella (no n-immune), currently March 07, 2025 2:12pm Breech presentation March 07, 2025 2:12pm arrhythmia affecting , an tepartum March 07, 2025 2:12pm Advanced maternal age (AMA) in March 21, 2025 9:49am Factor 5 Leiden mutation, heterozygous S eptember 2024 9:49am Hx successful (vaginal after ), currently March 21, 2025 9:49am Obesity affecting March [id number] 9:49am March 21, 2025 9:49am Previous delivery affecting pre gnancy March 21, 2025 9:49am Supervision of high-risk [facility] 2024 9:49am Susceptible to varicella (no n-immune), currently March 21, 2025 9:49am Breech presentation March 21, 2025 9:49am arrhythmia affecting , an tepartum March 21, 2025 9:49am Advanced maternal age (AMA) in April 03, 2025 12:53pm Factor 5 Leiden mutation, heterozygous S eptember 2024 12:53pm Hx successful (vaginal after ), currently April 03, 2025 12:53pm Obesity affecting April 032024 12:53pm April 03, 2025 12:53pm Previous delivery affecting pre gnancy April 03, 2025 12:53pm Supervision of high-risk Septe mber 2024 12:53pm Susceptible to varicella (no n-immune), currently April 03, 2025 12:53pm Advanced maternal age (AMA) in April 10, 2025 9:38am Factor 5 Leiden mutation, heterozygous O ctober 2024 9:38am Hx successful (vaginal after ), currently April 10, 2025 9:38am LGA (large for gestational age) fetus Oc tober 2024 9:38am Obesity affecting April 10, 2025 9:38am Positive GBS test April 10, 2025 9: 38am April 10, 2025 9: 38am Previous delivery affecting pre gnancy April 10, 2025 9:38am Supervision of high-risk Octob er 2024 9:38am Susceptible to varicella (no n-immune), currently April 10, 2025 9:38am Additional Source Comments INFORMATION SOURCE (unrecogn ized section and content) DATE CREATED AUTHOR 04/14/2019 [place] [facility] [employer] [facility] DATE CREATED AUTHOR AUTHOR'S ORGANIZ ATION 06/06/[address] [facility] DATE CREATED AUTHOR AUTHOR'S ORGANIZ ATION 08/21/2021 [employer] DATE CREATED AUTHOR AUTHOR'S ORGANIZ ATION 02/26/2022 [facility] DATE CREATED AUTHOR AUTHOR'S ORGANIZ ATION 04/18/2025 [facility] <item> Privacy Markings (unrecogniz ed section and content) Section Author: Kiah Qureshi PROHIBITION ON REDISCLOSURE OF CONFIDENTIAL INFORMATION This notice accompanies a disclosure of information concerning a client made to you with the consent of such client. Care Teams (unrecognized sec tion and content) Team Status: Active Member Role Status Dates No Primary Care Physician Primary Care Provider Active Team Status: Inactive Member Role Status Dates No Primary Care Physician Primary Care Provider Active Dr. Priscilla Gandara DO Attending Provider Activ e Team Status: Active Member Role Status Dates No Primary Care Physician Primary Care Provider Active Dr. Priscilla Gandara DO Attending Provider, Refe rring Provider Active Team Status: Inactive Member Role Status Dates No Primary Care Physician Primary Care Provider Active Dr. Priscilla Gandara DO Attending Provider, Refe rring Provider Active Team Status: Active Member Role Status Dates No Primary Care Physician Primary Care Provider Active Dr. Priscilla Gandara DO Attending Provider Activ e Team Status: Inactive Member Role Status Dates No Primary Care Physician Primary Care Provider Active Renetta Hinojosa LOCATOR, LOCATOR-C Attending Provider, Referring Provider Active Team Status: Inactive Member Role Status Dates No Primary Care Physician Primary Care Provider, Refer ring Provider Active Sindhu Leblanc CNM Attending Provider Active Team Status: Inactive Member Role Status Dates No Primary Care Physician Primary Care Provider, Refer ring Provider Active Dr. Priscilla Gandara DO Attending Provider Activ e Team Status: Inactive Member Role Status Dates No Primary Care Physician Primary Care Provider Active Sindhu Leblanc CNM Attending Provider, Referring Pro vider Active Team Status: Inactive Member Role Status Dates No Primary Care Physician Primary Care Provider, Refer ring Provider Active Chinyere Covarrubias CNM Attending Provider Active Team Status: Inactive Member Role Status Dates No Primary Care Physician Primary Care Provider, Refer ring Provider Active Dr. Roro Troy MD Attending Provider Active Team Status: Inactive Member Role Status Dates No Primary Care Physician Primary Care Provider Active Dr. Roro Troy MD Attending Provider, Referr ing Provider Active Team Status: Active Member Role Status Dates No Primary Care Physician Primary Care Provider Active Dr. Roro Troy MD Admit Provid er, Attending Provider, Other Provider Active Team Status: Inactive Member Role Status Dates No Primary Care Physician Primary Care Provider Active Chinyere Covarrubias CNM Attending Provider, Referring Pr ovider Active Team Status: Inactive Member Role Status Dates No Primary Care Physician Primary Care Provider Active Dr. Roro Troy MD Admit Provider, Attending Provider Active Team Status: Inactive Member Role Status Dates No Primary Care Physician Primary Care Provider Active Start: September 22, 2024 End: September 22, 2024 No Primary Care Physician Referring Provider Active Start: September 22, 2024 End: September 22, 2024 Sindhu Leblanc CNM Attending Provider Active S tart: September 22, 2024 End: September 22, 2024 Team Status: Inactive Member Role Status Dates No Primary Care Physician Primary Care Provider Active Start: September 22, 2024 End: September 22, 2024 Chinyere Covarrubias CNM Attending Provider Active Start: September 22, 2024 End: September 22, 2024 Chinyere Covarrubias CNM Referring Provider Active Start: September 22, 2024 End: September 22, 2024 Team Status: Inactive Member Role Status Dates No Primary Care Physician Referring Provider Active Start: October 24, 2024 End: October 24, 2024 Dr. Roro Troy MD Attending Provider Active Start: October 24, 2024 End: October 24, 2024 Team Status: Inactive Member Role Status Dates No Primary Care Physician Referring Provider Active Start: November 22, 2024 End: November 22, 2024 Sindhu Leblanc CNM Attending Provider Active S tart: November 22, 2024 End: November 22, 2024 Team Status: Inactive Member Role Status Dates Dr. Roro Troy MD Attending Provider Active Start: December 08, 2024 End: December 08, 2024 Dr. Roro Troy MD Referring Provider Active Start: December 08, 2024 End: December 08, 2024 No Primary Care Physician Primary Care Provider Active Start: December 08, 2024 End: December 08, 2024 Team Status: Inactive Member Role Status Dates No Primary Care Physician Referring Provider Active Start: December 19, 2024 End: December 19, 2024 Dr. Roro Troy MD Attending Provider Active Start: December 19, 2024 End: December 19, 2024 Team Status: Active Member Role/Relationship Status Dates No Primary Care Physician Primary Care Provider Active Team Status: Inactive Member Role/Relationship Status Dates No Primary Care Physician Primary Care Provider Active Start: September 22, 2024 End: September 22, 2024 No Primary Care Physician Referring Provider Active Start: September 22, 2024 End: September 22, 2024 Sindhu Leblanc CNM Attending Provider Active S tart: September 22, 2024 End: September 22, 2024 Team Status: Inactive Member Role/Relationship Status Dates No Primary Care Physician Primary Care Provider Active Start: September 22, 2024 End: September 22, 2024 Chinyere Covarrubias CNM Attending Provider Active Start: September 22, 2024 End: September 22, 2024 Chinyere Covarrubias CNM Referring Provider Active Start: September 22, 2024 End: September 22, 2024 Team Status: Inactive Member Role/Relationship Status Dates No Primary Care Physician Referring Provider Active Start: October 24, 2024 End: October 24, 2024 Dr. Roro Troy MD Attending Provider Active Start: October 24, 2024 End: October 24, 2024 Team Status: Inactive Member Role/Relationship Status Dates No Primary Care Physician Referring Provider Active Start: November 22, 2024 End: November 22, 2024 Sindhu Leblanc CNM Attending Provider Active S tart: November 22, 2024 End: November 22, 2024 Team Status: Inactive Member Role/Relationship Status Dates Dr. Roro Troy MD Attending Provider Active Start: December 08, 2024 End: December 08, 2024 Dr. Roro Troy MD Referring Provider Active Start: December 08, 2024 End: December 08, 2024 No Primary Care Physician Primary Care Provider Active Start: December 08, 2024 End: December 08, 2024 Team Status: Inactive Member Role/Relationship Status Dates No Primary Care Physician Referring Provider Active Start: December 19, 2024 End: December 19, 2024 Dr. Roro Troy MD Attending Provider Active Start: December 19, 2024 End: December 19, 2024 Team Status: Inactive Member Role/Relationship Status Dates Renetta Hinojosa LOCATOR, LOCATOR-C Attending Provider Active Start: December 26, 2024 End: December 26, 2024 Renetta Hinojosa LOCATOR, LOCATOR-C Referring Provider Active Start: December 26, 2024 End: December 26, 2024 No Primary Care Physician Primary Care Provider Active Start: December 26, 2024 End: December 26, 2024 Team Status: Inactive Member Role/Relationship Status Dates Renetta Hinojosa LOCATOR, LOCATOR-C Attending Provider Active Start: January 16, 2025 End: January 16, 2025 No Primary Care Physician Primary Care Provider Active Start: January 16, 2025 End: January 16, 2025 No Primary Care Physician Referring Provider Active Start: January 16, 2025 End: January 16, 2025 Team Status: Inactive Member Role/Relationship Status Dates No Primary Care Physician Referring Provider Active Start: October 24, 2024 End: October 24, 2024 Dr. Roro Troy MD Attending Provider Active Start: October 24, 2024 End: October 24, 2024 Team Status: Inactive Member Role/Relationship Status Dates No Primary Care Physician Referring Provider Active Start: November 22, 2024 End: November 22, 2024 Sindhu Leblanc CNM Attending Provider Active S tart: November 22, 2024 End: November 22, 2024 Team Status: Inactive Member Role/Relationship Status Dates Dr. Roro Troy MD Attending Provider Active Start: December 08, 2024 End: December 08, 2024 Dr. Roro Troy MD Referring Provider Active Start: December 08, 2024 End: December 08, 2024 No Primary Care Physician Primary Care Provider Active Start: December 08, 2024 End: December 08, 2024 Team Status: Inactive Member Role/Relationship Status Dates No Primary Care Physician Referring Provider Active Start: December 19, 2024 End: December 19, 2024 Dr. Roro Troy MD Attending Provider Active Start: December 19, 2024 End: December 19, 2024 Team Status: Inactive Member Role/Relationship Status Dates Renetta Hinojosa LOCATOR, LOCATOR-C Attending Provider Active Start: December 26, 2024 End: December 26, 2024 Renetta Hinojosa LOCATOR, LOCATOR-C Referring Provider Active Start: December 26, 2024 End: December 26, 2024 No Primary Care Physician Primary Care Provider Active Start: December 26, 2024 End: December 26, 2024 Team Status: Inactive Member Role/Relationship Status Dates Renetta Hinojosa LOCATOR, LOCATOR-C Attending Provider Active Start: January 16, 2025 End: January 16, 2025 No Primary Care Physician Primary Care Provider Active Start: January 16, 2025 End: January 16, 2025 No Primary Care Physician Referring Provider Active Start: January 16, 2025 End: January 16, 2025 Team Status: Inactive Member Role/Relationship Status Dates Renetta Hinojosa LOCATOR, LOCATOR-C Attending Provider Active Start: February 06, 2025 End: February 06, 2025 No Primary Care Physician Primary Care Provider Active Start: February 06, 2025 End: February 06, 2025 No Primary Care Physician Referring Provider Active Start: February 06, 2025 End: February 06, 2025 Team Status: Active Member Role/Relationship Status Dates No Primary Care Physician Primary Care Provider Active Start: February 06, 2025 Renetta Hinojosa LOCATOR, LOCATOR-C Attending Provider Active Start: February 06, 2025 Renetta Hinojosa LOCATOR, LOCATOR-C Referring Provider Active Start: February 06, 2025 Team Status: Inactive Member Role/Relationship Status Dates No Primary Care Physician Primary Care Provider Active Start: February 06, 2025 End: February 06, 2025 Renetta Hinojosa LOCATOR, LOCATOR-C Other Provider Active St art: February 06, 2025 End: February 06, 2025 Dr. Priscilla Gandara , Attending Provider Activ e Start: February 06, 2025 End: February 06, 2025 Dr. Priscilla Gandara , Referring Provider Activ e Start: February 06, 2025 End: February 06, 2025 Team Status: Inactive Member Role/Relationship Status Dates No Primary Care Physician Referring Provider Active Start: November 22, 2024 End: November 22, 2024 Sindhu Leblanc CNM Attending Provider Active S tart: November 22, 2024 End: November 22, 2024 Team Status: Inactive Member Role/Relationship Status Dates Dr. Roro Troy MD Attending Provider Active Start: December 08, 2024 End: December 08, 2024 Dr. Roro Troy MD Referring Provider Active Start: December 08, 2024 End: December 08, 2024 No Primary Care Physician Primary Care Provider Active Start: December 08, 2024 End: December 08, 2024 Team Status: Inactive Member Role/Relationship Status Dates No Primary Care Physician Referring Provider Active Start: December 19, 2024 End: December 19, 2024 Dr. Roro Troy MD Attending Provider Active Start: December 19, 2024 End: December 19, 2024 Team Status: Inactive Member Role/Relationship Status Dates Renetta Hinojosa LOCATOR, LOCATOR-C Attending Provider Active Start: December 26, 2024 End: December 26, 2024 Renetta Hinojosa LOCATOR, LOCATOR-C Referring Provider Active Start: December 26, 2024 End: December 26, 2024 No Primary Care Physician Primary Care Provider Active Start: December 26, 2024 End: December 26, 2024 Team Status: Inactive Member Role/Relationship Status Dates Renetta Hinojosa LOCATOR, LOCATOR-C Attending Provider Active Start: January 16, 2025 End: January 16, 2025 No Primary Care Physician Primary Care Provider Active Start: January 16, 2025 End: January 16, 2025 No Primary Care Physician Referring Provider Active Start: January 16, 2025 End: January 16, 2025 Team Status: Inactive Member Role/Relationship Status Dates Renetta Hinojosa LOCATOR, LOCATOR-C Attending Provider Active Start: February 06, 2025 End: February 06, 2025 No Primary Care Physician Primary Care Provider Active Start: February 06, 2025 End: February 06, 2025 No Primary Care Physician Referring Provider Active Start: February 06, 2025 End: February 06, 2025 Team Status: Inactive Member Role/Relationship Status Dates No Primary Care Physician Primary Care Provider Active Start: February 06, 2025 End: February 06, 2025 Renetta Hinojosa LOCATOR, LOCATOR-C Other Provider Active St art: February 06, 2025 End: February 06, 2025 Dr. Priscilla Gandara DO Attending Provider Activ e Start: February 06, 2025 End: February 06, 2025 Dr. Priscilla Gandara DO Referring Provider Activ e Start: February 06, 2025 End: February 06, 2025 Team Status: Active Member Role/Relationship Status Dates No Primary Care Physician Primary Care Provider Active Start: February 06, 2025 Renetta Hinojosa LOCATOR, LOCATOR-C Other Provider Active St art: February 06, 2025 Dr. Priscilla Gandara DO Attending Provider Activ e Start: February 06, 2025 Dr. Priscilla Gandara DO Referring Provider Activ e Start: February 06, 2025 Dr. Priscilla Gandara DO Other Provider Active Start: February 06, 2025 Team Status: Inactive Member Role/Relationship Status Dates Chinyere Covarrubias CNM Attending Provider Active Start: February 23, 2025 End: February 23, 2025 No Primary Care Physician Primary Care Provider Active Start: February 23, 2025 End: February 23, 2025 No Primary Care Physician Referring Provider Active Start: February 23, 2025 End: February 23, 2025 Team Status: Inactive Member Role/Relationship Status Dates Dr. Priscilla Gandara DO Attending Provider Activ e Start: March 07, 2025 End: March 07, 2025 No Primary Care Physician Primary Care Provider Active Start: March 07, 2025 End: March 07, 2025 No Primary Care Physician Referring Provider Active Start: March 07, 2025 End: March 07, 2025 Team Status: Active Member Role/Relationship Status Dates No Primary Care Physician Primary care physician Activ e Team Status: Inactive Member Role/Relationship Status Dates No Primary Care Physician Referring Provider Active Start: November 22, 2024 End: November 22, 2024 Sindhu Leblanc CNM Attending physician Active Start: November 22, 2024 End: November 22, 2024 Team Status: Inactive Member Role/Relationship Status Dates Dr. Roro Troy MD Attending physician Active Start: December 08, 2024 End: December 08, 2024 Dr. Roro Troy MD Referring Provider Active Start: December 08, 2024 End: December 08, 2024 No Primary Care Physician Primary care physician Activ e Start: December 08, 2024 End: December 08, 2024 Team Status: Inactive Member Role/Relationship Status Dates No Primary Care Physician Referring Provider Active Start: December 19, 2024 End: December 19, 2024 Dr. Roro Troy MD Attending physician Active Start: December 19, 2024 End: December 19, 2024 Team Status: Inactive Member Role/Relationship Status Dates Renetta Hinojosa LOCATOR, LOCATOR-C Attending physician Active Start: December 26, 2024 End: December 26, 2024 Renetta Hinojosa LOCATOR, LOCATOR-C Referring Provider Active Start: December 26, 2024 End: December 26, 2024 No Primary Care Physician Primary care physician Activ e Start: December 26, 2024 End: December 26, 2024 Team Status: Inactive Member Role/Relationship Status Dates Renetta Hinojosa LOCATOR, LOCATOR-C Attending physician Active Start: January 16, 2025 End: January 16, 2025 No Primary Care Physician Primary care physician Activ e Start: January 16, 2025 End: January 16, 2025 No Primary Care Physician Referring Provider Active Start: January 16, 2025 End: January 16, 2025 Team Status: Inactive Member Role/Relationship Status Dates Renetta Hinojosa LOCATOR, LOCATOR-C Attending physician Active Start: February 06, 2025 End: February 06, 2025 No Primary Care Physician Primary care physician Activ e Start: February 06, 2025 End: February 06, 2025 No Primary Care Physician Referring Provider Active Start: February 06, 2025 End: February 06, 2025 Team Status: Inactive Member Role/Relationship Status Dates No Primary Care Physician Primary care physician Activ e Start: February 06, 2025 End: February 06, 2025 Renetta Hinojosa LOCATOR, LOCATOR-C Nurse Practitioner Active Start: February 06, 2025 End: February 06, 2025 Dr. Priscilla Gandara DO Attending physician Acti ve Start: February 06, 2025 End: February 06, 2025 Dr. Priscilla Gandara DO Referring Provider Activ e Start: February 06, 2025 End: February 06, 2025 Team Status: Active Member Role/Relationship Status Dates No Primary Care Physician Primary care physician Activ e Start: February 06, 2025 Renetta Hinojosa LOCATOR, LOCATOR-C Nurse Practitioner Active Start: February 06, 2025 Dr. Priscilla Gandara DO Attending physician Acti ve Start: February 06, 2025 Dr. Priscilla Gandara DO Referring Provider Activ e Start: February 06, 2025 Dr. Priscilla Gandara DO Nurse Practitioner Activ e Start: February 06, 2025 Team Status: Inactive Member Role/Relationship Status Dates Chinyere Covarrubias CNM Attending physician Active Start: February 23, 2025 End: February 23, 2025 No Primary Care Physician Primary care physician Activ e Start: February 23, 2025 End: February 23, 2025 No Primary Care Physician Referring Provider Active Start: February 23, 2025 End: February 23, 2025 Team Status: Inactive Member Role/Relationship Status Dates Dr. Priscilla Gandara DO Attending physician Active Start: March End: March 07, 2025 No Primary Care Physician Primary care physician Activ e Start: March 07, 2025 End: March 07, 2025 No Primary Care Physician Referring Provider Active Start: March 07, 2025 End: March 07, 2025 Team Status: Inactive Member Role/Relationship Status Dates No Primary Care Physician Primary care physician Activ e Start: March 21, 2025 End: March 21, 2025 No Primary Care Physician Referring Provider Active Start: March 21, 2025 End: March 21, 2025 Dr. Roro Troy MD Attending physician Active Start: March 21, 2025 End: March 21, 2025 Team Status: Inactive Member Role/Relationship Status Dates Dr. Roro Troy MD Attending physician Active Start: December 08, 2024 End: December 08, 2024 Dr. Roro Troy MD Referring Provider Active Start: December 08, 2024 End: December 08, 2024 No Primary Care Physician Primary care physician Activ e Start: December 08, 2024 End: December 08, 2024 Team Status: Inactive Member Role/Relationship Status Dates No Primary Care Physician Referring Provider Active Start: December 19, 2024 End: December 19, 2024 Dr. Roro Troy MD Attending physician Active Start: December 19, 2024 End: December 19, 2024 Team Status: Inactive Member Role/Relationship Status Dates Renetta Hinojosa LOCATOR, LOCATOR-C Attending physician Active Start: December 26, 2024 End: December 26, 2024 Renetta Hinojosa LOCATOR, LOCATOR-C Referring Provider Active Start: December 26, 2024 End: December 26, 2024 No Primary Care Physician Primary care physician Activ e Start: December 26, 2024 End: December 26, 2024 Team Status: Inactive Member Role/Relationship Status Dates Renetta Hinojosa LOCATOR, LOCATOR-C Attending physician Active Start: January 16, 2025 End: January 16, 2025 No Primary Care Physician Primary care physician Activ e Start: January 16, 2025 End: January 16, 2025 No Primary Care Physician Referring Provider Active Start: January 16, 2025 End: January 16, 2025 Team Status: Inactive Member Role/Relationship Status Dates Renetta Hinojosa LOCATOR, LOCATOR-C Attending physician Active Start: February 06, 2025 End: February 06, 2025 No Primary Care Physician Primary care physician Activ e Start: February 06, 2025 End: February 06, 2025 No Primary Care Physician Referring Provider Active Start: February 06, 2025 End: February 06, 2025 Team Status: Inactive Member Role/Relationship Status Dates No Primary Care Physician Primary care physician Activ e Start: February 06, 2025 End: February 06, 2025 Renetta Hinojosa LOCATOR, LOCATOR-C Nurse Practitioner Active Start: February 06, 2025 End: February 06, 2025 Dr. Priscilla Gandara DO Attending physician Acti ve Start: February 06, 2025 End: February 06, 2025 Dr. Priscilla Gandara , Referring Provider Activ e Start: February 06, 2025 End: February 06, 2025 Team Status: Active Member Role/Relationship Status Dates No Primary Care Physician Primary care physician Activ e Start: February 06, 2025 Renetta Hinojosa LOCATOR, LOCATOR-C Nurse Practitioner Active Start: February 06, 2025 Dr. Priscilla Gandara DO Attending physician Acti ve Start: February 06, 2025 Dr. Priscilla Gandara DO Referring Provider Activ e Start: February 06, 2025 Dr. Priscilla Gandara , DO Nurse Practitioner Activ e Start: February 06, 2025 Team Status: Inactive Member Role/Relationship Status Dates Chinyere Covarrubias CNM Attending physician Active Start: February 23, 2025 End: February 23, 2025 No Primary Care Physician Primary care physician Activ e Start: February 23, 2025 End: February 23, 2025 No Primary Care Physician Referring Provider Active Start: February 23, 2025 End: February 23, 2025 Team Status: Inactive Member Role/Relationship Status Dates Dr. Priscilla Gandara DO Attending physician Active Start: March End: March 07, 2025 No Primary Care Physician Primary care physician Activ e Start: March 07, 2025 End: March 07, 2025 No Primary Care Physician Referring Provider Active Start: March 07, 2025 End: March 07, 2025 Team Status: Inactive Member Role/Relationship Status Dates No Primary Care Physician Primary care physician Activ e Start: March 21, 2025 End: March 21, 2025 No Primary Care Physician Referring Provider Active Start: March 21, 2025 End: March 21, 2025 Dr. Roro Troy MD Attending physician Active Start: March 21, 2025 End: March 21, 2025 Team Status: Inactive Member Role/Relationship Status Dates No Primary Care Physician Primary care physician Activ e Start: April 03, 2025 End: April 03, 2025 No Primary Care Physician Referring Provider Active Start: April 03, 2025 End: April 03, 2025 Renetta Hinojosa NP, LOCATOR-C Attending physician Active Start: April 03, 2025 End: April 03, 2025 Team Status: Active Member Role/Relationship Status Dates No Primary Care Physician Primary care physician Activ e Start: April 03, 2025 Renetta Hinojosa LOCATOR, LOCATOR-C Attending physician Active Start: April 03, 2025 Renetta Micaela LOCATOR, LOCATOR-C Referring Provider Active Start: April 03, 2025 Team Status: Inactive Member Role/Relationship Status Dates No Primary Care Physician Referring Provider Active Start: December 19, 2024 End: December 19, 2024 Dr. Roro Troy MD Attending physician Active Start: December 19, 2024 End: December 19, 2024 Team Status: Inactive Member Role/Relationship Status Dates Renetta Hinojosa LOCATOR, LOCATOR-C Attending physician Active Start: December 26, 2024 End: December 26, 2024 Renetta Hinojosa LOCATOR, LOCATOR-C Referring Provider Active Start: December 26, 2024 End: December 26, 2024 No Primary Care Physician Primary care physician Activ e Start: December 26, 2024 End: December 26, 2024 Team Status: Inactive Member Role/Relationship Status Dates Renetta Hinojosa LOCATOR, LOCATOR-C Attending physician Active Start: January 16, 2025 End: January 16, 2025 No Primary Care Physician Primary care physician Activ e Start: January 16, 2025 End: January 16, 2025 No Primary Care Physician Referring Provider Active Start: January 16, 2025 End: January 16, 2025 Team Status: Inactive Member Role/Relationship Status Dates Renetta Hinojosa LOCATOR, LOCATOR-C Attending physician Active Start: February 06, 2025 End: February 06, 2025 No Primary Care Physician Primary care physician Activ e Start: February 06, 2025 End: February 06, 2025 No Primary Care Physician Referring Provider Active Start: February 06, 2025 End: February 06, 2025 Team Status: Inactive Member Role/Relationship Status Dates No Primary Care Physician Primary care physician Activ e Start: February 06, 2025 End: February 06, 2025 Renetta Hinojosa LOCATOR, LOCATOR-C Nurse Practitioner Active Start: February 06, 2025 End: February 06, 2025 Dr. Priscilla Gandara DO Attending physician Acti ve Start: February 06, 2025 End: February 06, 2025 Dr. Priscilla Gandara DO Referring Provider Activ e Start: February 06, 2025 End: February 06, 2025 Team Status: Active Member Role/Relationship Status Dates No Primary Care Physician Primary care physician Activ e Start: February 06, 2025 Renetta Hinojosa LOCATOR, LOCATOR-C Nurse Practitioner Active Start: February 06, 2025 Dr. Priscilla Gandara , Attending physician Acti ve Start: February 06, 2025 Dr. Priscilla Gandara DO Referring Provider Activ e Start: February 06, 2025 Dr. Priscilla Gandara , Nurse Practitioner Activ e Start: February 06, 2025 Team Status: Inactive Member Role/Relationship Status Dates Chinyere Covarrubias CNM Attending physician Active Start: February 23, 2025 End: February 23, 2025 No Primary Care Physician Primary care physician Activ e Start: February 23, 2025 End: February 23, 2025 No Primary Care Physician Referring Provider Active Start: February 23, 2025 End: February 23, 2025 Team Status: Inactive Member Role/Relationship Status Dates Dr. Priscilla Gandara DO Attending physician Active Start: March End: March 07, 2025 No Primary Care Physician Primary care physician Activ e Start: March 07, 2025 End: March 07, 2025 No Primary Care Physician Referring Provider Active Start: March 07, 2025 End: March 07, 2025 Team Status: Inactive Member Role/Relationship Status Dates No Primary Care Physician Primary care physician Activ e Start: March 21, 2025 End: March 21, 2025 No Primary Care Physician Referring Provider Active Start: March 21, 2025 End: March 21, 2025 Dr. Roro Troy MD Attending physician Active Start: March 21, 2025 End: March 21, 2025 Team Status: Inactive Member Role/Relationship Status Dates No Primary Care Physician Primary care physician Activ e Start: April 03, 2025 End: April 03, 2025 No Primary Care Physician Referring Provider Active Start: April 03, 2025 End: April 03, 2025 Renetta Hinojosa LOCATOR, LOCATOR-C Attending physician Active Start: April 03, 2025 End: April 03, 2025 Team Status: Active Member Role/Relationship Status Dates No Primary Care Physician Primary care physician Activ e Start: April 03, 2025 Renetta Hinojosa LOCATOR, LOCATOR-C Attending physician Active Start: April 03, 2025 Renetta Valier LOCATOR, LOCATOR-C Referring Provider Active Start: April 03, 2025 Team Status: Active Member Role/Relationship Status Dates No Primary Care Physician Primary care physician Activ e Start: April 06, 2025 Renetta Hinojosa NP, NP-C Attending physician Active Start: April 06, 2025 Renetta Hinojosa NP, NP-C Referring Provider Active Start: April 06, 2025 Team Status: Inactive Member Role/Relationship Status Dates No Primary Care Physician Primary care physician Activ e Start: April 10, 2025 End: April 10, 2025 No Primary Care Physician Referring Provider Active Start: April 10, 2025 End: April 10, 2025 Dr. Priscilla Gandara , Attending physician Rob[place] ve Start: April 10, 2025 End: April 10, 2025 Goals (unrecognized section and content) Type Care Experience TOLAC patient counse led regarding risks/benefits of trial of labor versus repeat . ACOG/uptodate education given to patient. 45 % likelihood of success per calculatorTOLAC consent form signed: completed.Labor Preferences-CB/BF classes: just breath completed.labor support person: Gerald intervention preferences: low interventions, allow SROM if ok. pain management options preferred:unmedicatedcut cord/dad catch:no to cutting cordbreastfeeding:plansPP control planned: PISANO, to discuss POP at visit. declines larcdiscussed possible routes of delivery and associated risks: reviewed methodsspecial requests: [] Care Experience vbacpatient counsele d regarding risks/benefits of trial of labor versus repeat . ACOG/uptodate education given to patient. [] % likelihood of success per calculatorTOLAC consent form signed: []Labor Preferences-CB/BF classes: nolabor support person: Vishnuor intervention preferences: []pain management options preferred: limitedcut cord/dad catch: nobreastfeeding: youPP control planned: discusseddiscussed possible routes of delivery and associated risks: []special requests: []patient counseled regarding risks/benefits of trial of labor versus repeat . ACOG/uptodate education given to patient. [] % likelihood of success per calculatorTOLAC consent form signed: [] FOR RECORDS PERTAINING TO PATIENTS WHO ARE [...] BE BASED ON THE PRIMARY CLINICAL RECORDS. [facility] [facility]. provides no warranty or guarantee of the accuracy or completeness of information in this document.
--- OUTSIDE RECORDS SUMMARY | 2025-04-21 04:14 | XMS RPT_ITS | CCD ---
Author Organization [facility] CliniSyva Care Team Providers Care Pencil Sorter Name Role Phone Randy Botello Unavailable Unavailable Randy Botello Unavailable Unavailable Unavailable Randy Botello Unavailable [place]en[place] Unavailable Care Physician, No Primary Primary Care [...] [phone] Woodrow DICKSON, Dr. Read Attending Provider Dr. Roro Troy MD Referring Provider [place] WINDING MACHINE OPERATOR-C, Renetta Attending Provider [phone] [place] WINDING MACHINE OPERATOR-C, Renetta Referring Provider [phone] Care Physician, No Primary Referring Provider Un available Sindhu Leblanc CNM Attending Provider [phone] Care Physician, No Primary Primary Care Provider Unavailable Micaela WINDING MACHINE OPERATOR-C, Renetta Other Provider [phone] Sailaja Sidhu DO, Dr. Wells Attending Provider Dr. Priscilla Gandara DO Referring Provider Care Physician, No Primary Referring Provider Un available Dr. Roro Troy MD Attending Provider Dr. Priscilla Gandara DO Other Provider [phone] Chinyere Covarrubias CNM Attending Provider [phone] Sindhu Leblanc CNM Attending Physician [phone] Dr. Roro Troy MD Attending Physician Care Physician, No Primary Primary Care Physicia n Unavailable Micaela WINDING MACHINE OPERATOR-CRenetta Attending Physician [phone] Micaela WINDING MACHINE OPERATOR-C, Renetta Nurse Practitioner [phone] Dr. Priscilla Gandara [...] No Primary Primary Care Unava ilable Micaela WINDING MACHINE OPERATOR, Renetta Attending Unavailable Care Physician, No Primary Referring Unava ilable Care Physician, No Primary Primary Care Unava ilable Micaela WINDING MACHINE OPERATOR, Renetta Attending Unavailable Priscilla Gandara Attending Unavailabl [...] Physician, No Primary Primary Care Unava ilable [place] WINDING MACHINE OPERATOR, Renetta Consulting Unavailable Priscilla Gandara Consulting Unavailabl e Roro Troy Attending Unavailable Care Physician, No Primary Referring Unava ilable Care Physician, No Primary Referring Unava ilable Care Physician, No Primary Primary Care Unava ilable Micaela WINDING MACHINE OPERATOR, Renetta Attending Unavailable Care Physician, No Primary Primary Care Unava ilable Micaela WINDING MACHINE OPERATOR, Renetta Referring Unavailable [place] WINDING MACHINE OPERATOR, Renetta Attending Unavailable Care Physician, No Primary Primary Care Unava ilable [place] WINDING MACHINE OPERATOR, Renetta Attending Unavailable Micaela WINDING MACHINE OPERATOR, Renetta Referring Unavailable Care Physician, No Primary Primary Care Unava ilable [place] WINDING MACHINE OPERATOR, Renetta Referring Unavailable Micaela WINDING MACHINE OPERATOR, Renetta Attending Unavailable Care Physician, No Primary [...] PO DAILY January 21, 2023 12:00am Pnv No.664-Hq-Us8-Dha-Epa-Fi sh 400 mcg-35 mg- 25 mg-5 mg tablet,chewable (13 sources) Start: 09-05-2024 Start: 09-05-2024 Pnv No.153-Fa- Ne3-Obg-Enx-Fish 400 mcg-35 mg- 25 mg-5 mg tablet,chewable Active 1 {tbl} PO DAILY September 05, 2024 1:00am Complies with drug therapy Start: 09-05-2024 Pnv No.153-Fa- Mz1-Syi-Dyb-Fish 400 mcg-35 mg- 25 mg-5 mg tablet,chewable Active 1 {tbl} PO DAILY September 05, 2024 1:00am Start: 09-05-2024 Pnv No.153-Fa- Ef0-Enx-Axj-Fish 400 mcg-35 mg- 25 mg-5 mg tablet,chewable [...] Spouse Hay PRR, , ANDREA 04/27, PC [place], [place], Hay Other complications of (20 sources) [...] Test Name Value Interpretation Reference Range Facility Senior Human Resources Representative Office Visit Reporton 04-17-2025 Senior Human Resources Representative Office Visit Report [facility]'s [address], [address] [place] [address] OFFICE VISIT Date of Service: 04/17/25 MR#: [id number] Acct: [id number] Name: CANDI MOYA Rep #: [id number] : 1990 Provider: Dr. Roro cui MD Age/Sex: 34/F [place] [facility] [place] Status: Signed Intake Vital Signs 02/06/25 09:59 04/10/25 09:42 04/17/25 09:39 Height 5 ft 4 in 5 ft 4 in 5 ft 4 in Weight: 214 lb 7 oz BMI 36.8 BP 121/85 H Intake Visit Reasons: 38 WK OB/NST Environmental Engineering Professor Required: No Is patient in pain?: No [...] 2 current occupational status: unemployed current occupation: 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 Normal [facility] Rule out Beta Strep (Grp. B) on 04-12-2025 GEORGES Pending Streptococcus agalactiae (B) Amount Growth Growth Streptococcus agalactiae (B): REACTION Ampicillin Islt NILAM <=0.25 cefTRIAXone Islt NILAM <=0.12 S Clindamycin Islt NILAM <=0.25 S Clindamycin.induced Susc Islt NEG Linezolid Islt NILAM <=2 S Vancomycin Islt NILAM 0.5 S Normal [facility] Comment on above: Performed By: #### M 100.4687 #### [facility] Laboratory [address] [place], [address] Senior Human Resources Representative Office Visit Reporton 04-10-2025 Senior Human Resources Representative Office Visit Report [facility] [address], [address] [place] [address] OFFICE VISIT Date of Service: 04/10/25 MR#: [id number] Acct: [id number] Name: CANDI MOYA Rep #: [id number] : 1990 Provider: Dr. Priscilla Cadet DO Age/Sex: 34/F [place] [facility] [place] Status: Signed Intake Vital Signs 02/06/25 09:59 04/03/25 12:57 04/10/25 09:41 04/10/25 09:42 Height 5 ft 4 in 5 ft 4 in 5 ft 4 in 5 ft 4 in Weight: 211 lb 6 oz 209 lb 9 oz BMI 36.3 35.9 BP 104/70 106/70 Intake Visit Reasons: 37 WK OB/NST Environmental Engineering Professor Required: No Is patient in pain?: No [...] 2 current occupational status: unemployed current occupation: 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 (more content not included)... Normal [facility] OB Limited With Biometricson 04-06-2025 OB Limited With Biometrics [facility] Imaging Services [address] [place] [address] OB Limited With Biometrics MR#: [id number] Acct: [id number] Name: CANDI MOYA Rep #: [id number] : 1990 F 34 From: Catrachito Prajapati MD PCP: Care Physician,No Primary Status: REG CLI Study: OB Limited With Biometrics Date of Exam: 04/06 Exam# [id number] Ordering Dr: Renetta Hinojosa NP WINDING MACHINE OPERATOR -C PROCEDURE: OB LIMITED WITH BIOMETRICS 04/06/2025 [...] noted since the previous study Reading Location: [id number] CC: MANISHA Hinojosa; No Primary Care Physician Gravity Meter Observer: Signed Normal [facility] Laboratory - Chemistry and C hemistry - challengeOrdered By: Renetta Hinojosa on 04-03-2025 Glucose Ql (U) Negative [facility] Laboratory - UrinalysisOrder ed By: Renetta Hinojosa on 04-03-2025 Protein Ql (U) Negative [facility] Senior Human Resources Representative Office Visit Reporton 04-03-2025 Senior Human Resources Representative Office Visit Report [facility]'s [address], [address] [place] [address] OFFICE VISIT Date of Service: 04/03/25 MR#: [id number] Acct: [id number] Name: CANDI MOYA Rep #: [id number] : 1990 Provider: MANISHA carbajal Age/Sex: 34/F Location: [facility] [place] Status: Signed Intake Vital Signs 02/06/25 09:59 03/21/25 10:21 04/03/25 12:57 Height 5 ft 4 in 5 ft 4 in 5 ft 4 in Weight: 211 lb 6 oz BMI 36.3 BP 104/70 Intake Visit Reasons: 36 WK OB/NST Chief Complaint: 36 Week OB/NST Environmental Engineering Professor Required: No Is patient in pain?: No [...] 2 current occupational status: unemployed current occupation: 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 -???- (more content not included)... Normal [facility] Laboratory - Chemistry and C hemistry - challengeOrdered By: Roro Troy on 03-21-2025 Glucose Ql (U) Negative [facility] Laboratory - UrinalysisOrder ed By: Roro Troy on 03-21-2025 Protein Ql (U) Negative [facility] Senior Human Resources Representative Office Visit Reporton 03-21-2025 Senior Human Resources Representative Office Visit Report [facility]'s [address], [address] [place] [address] OFFICE VISIT Date of Service: 03/21/25 MR#: [id number] Acct: [id number] Name: CANDI MOYA Rep #: [id number] : 1990 Provider: Dr. Roro cui MD Age/Sex: 34/F Location[place] [facility] [place] Status: Signed Intake Vital Signs 01/16/25 13:51 03/07/25 14:18 03/21/25 10:19 03/21/25 10:21 Height 5 ft 4 in 5 ft 4 in 5 ft 4 in 5 ft 4 in Weight: 209 lb 8 oz BMI 35.9 BP 106/71 Intake Visit Reasons: 34 wk ob Environmental Engineering Professor Required: No Is patient in pain?: No [...] 2 current occupational status: unemployed current occupation: 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 - (more content not included)... Normal [facility] Laboratory - Chemistry and C hemistry - challengeOrdered By: Priscilla Sidhu on 03-07-2025 Glucose Ql (U) Negative [facility] Laboratory - UrinalysisOrder ed By: Priscilla Sidhu on 03-07-2025 Protein Ql (U) Negative [facility] Senior Human Resources Representative Office Visit Reporton 03-07-2025 Senior Human Resources Representative Office Visit Report [facility] [address], [facility] [address] [place] [address] OFFICE VISIT Date of Service: 03/07/25 MR#: [id number] Acct: [id number] Name: CANDI MOYA Rep #: [id number] : 1990 Provider: Dr. Priscilla Cadet, Age/Sex: 34/F Location[place] [facility] [place] Status: Signed Intake Vital Signs 12/19/24 10:52 02/23/25 14:20 03/07/25 14:14 03/07/25 14:18 Height 5 ft 4 in 5 ft 4 in 5 ft 4 in 5 ft 4 in Weight: 208 lb 6 oz BMI 35.7 BP 108/70 Intake Visit Reasons: 32wk ob Environmental Engineering Professor Required: No Is patient in pain?: No [...] 2 current occupational status: unemployed current occupation: 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 -???-???-???-???- (more content not included)... Normal [facility] Laboratory - Chemistry and C hemistry - challengeOrdered By: Chinyere Covarrubias on 02-23-2025 Glucose Ql (U) Negative [facility] Laboratory - UrinalysisOrder ed By: Chinyere Covarrubias on 02-23-2025 Protein Ql (U) Negative [facility] Senior Human Resources Representative Office Visit Reporton 02-23-2025 Senior Human Resources Representative Office Visit Report [facility] [address], [address] [place] [address] OFFICE VISIT Date of Service: 02/23/25 MR#: [id number] Acct: [id number] Name: CANDI MOYA Rep #: [id number] : 1990 Provider: POPEYE ham Age/Sex: 34/F Location[place] [facility] [place] Status: Signed Intake Vital Signs 12/19/24 10:52 02/06/25 09:59 02/23/25 14:20 Height 5 ft 4 in 5 ft 4 in 5 ft 4 in Weight: 209 lb 1 oz BMI 35.9 BP 101/69 Intake Visit Reasons: 30wk ob Environmental Engineering Professor Required: No Is patient in pain?: No [...] 2 current occupational status: unemployed current occupation: 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 Normal [facility] Absolute lymphocyte countOrd ered By: Renetta Hillmantings on 02-06-2025 Lymphocytes Auto (Unsp spec) [#/Vol] 2.01 10*3/uL 0.83-4.51 [facility] Absolute neutrophil countOrd ered By: Renettabon Hinojosa on 02-06-2025 Neutrophils (Bld) [#/Vol] 8.1 10*3/uL High 2.0-7.7 [facility] Automated lymphocyte count a s percentage of total leukocytesOrdered By: Renetta Hinojosa on 02-06-2025 Lymphocytes/100 WBC Auto (Unsp spec) 18.1 % Low 19-41 [facility] Basophil percentageOrdered B y: Renetta Micaela on 02-06-2025 Basophils/100 WBC (Bld) 0.4 % 0-1 [facility] CBC W/Diff, Automatedon 08 Absolute Lymph 2.01 X10 3/uL Normal 0.83-4.51 [facility] Comment on above: Performed By: #### L 100.0100, L501.0250, L509.8002, L3890.6006 ####[facility] [address] [place], [place], [address] Absolute Neut 8.1 X10 3/uL High 2.0-7.7 [facility] Comment on above: Performed By: #### L 100.0100, L501.0250, L509.8002, L3890.6006 ####[facility] [address] [place], [address] Basophils/100 WBC (Bld) 0.4 % Normal 0-1 [facility] Comment on above: Performed By: #### L 100.0100, L501.0250, L509.8002, L3890.6006 ####[facility] [address] [place], [address] Eosinophils/100 WBC (Bld) 1.8 % Normal 0-5 [facility] Comment on above: Performed By: #### L 100.0100, L501.0250, L509.8002, L3890.6006 ####[facility] [address] [place], [address] Erythrocyte distribution width (RBC) [Ratio] 13.1 % Normal 11.6-14.6 [facility] Comment on above: Performed By: #### L 100.0100, L501.0250, L509.8002, L3890.6006 ####[facility] [address] [place], [address] Hematocrit (Bld) [Volume fraction] 32.2 % Low 37-47 [facility] Comment on above: Performed By: #### L 100.0100, L501.0250, L509.8002, L3890.6006 ####[facility] [address] [place], [address] Hemoglobin (Bld) [Mass/Vol] 10.6 g/dL Low 12.0-15.0 [facility] Comment on above: Performed By: #### L 100.0100, L501.0250, L509.8002, L3890.6006 ####[facility] [address] [place], [address] IG% 0.900 Normal 0.0-0.9 [facility] Comment on above: Result Comment: IG% - Immature Granulocytes (promyelocytes, myelocytes and metamyelocytes) > 1% indicates that a LEFT SHIFT is Present. Performed By: #### L 100.0100, L501.0250, L509.8002, L3890.6006 ####[facility] [address] [place], [address] Lymphocytes/100 WBC (Bld) 18.1 % Low 19-41 [facility] Comment on above: Performed By: #### L 100.0100, L501.0250, L509.8002, L3890.6006 ####[facility] [address] [place], [address] MCH (RBC) [Entitic mass] 29.5 pg Normal 27.0-32.0 [facility] Comment on above: Performed By: #### L 100.0100, L501.0250, L509.8002, L3890.6006 ####[facility] [address] [place], [address] MCHC (RBC) [Mass/Vol] 32.9 g/dL Normal 32-36 [facility] Comment on above: Performed By: #### L 100.0100, L501.0250, L509.8002, L3890.6006 ####[facility] [address] [place], [address] MCV (RBC) [Entitic vol] 89.7 fL Normal 81-99 [facility] Comment on above: Performed By: #### L 100.0100, L501.0250, L509.8002, L3890.6006 ####[facility] [address] [place], [address] Monocytes/100 WBC (Bld) 5.4 % Normal 0-10 [facility] Comment on above: Performed By: #### L 100.0100, L501.0250, L509.8002, L3890.6006 ####[facility] [address] [place], [address] Neutrophils/100 WBC (Bld) 73.4 % High 47-70 [facility] Comment on above: Performed By: #### L 100.0100, L501.0250, L509.8002, L3890.6006 ####[facility] [address] [place], [address] Nucleated RBC (Bld) [#/Vol] 0 10*3/uL Normal 0-5 [facility] Comment on above: Performed By: #### L 100.0100, L501.0250, L509.8002, L3890.6006 ####[facility] [address] [place], [address] Platelet mean volume (Bld) [Entitic vol] 10.5 fL Normal 6.2-12.0 [facility] Comment on above: Performed By: #### L 100.0100, L501.0250, L509.8002, L3890.6006 ####[facility] [address] [place], [address] Platelets (Bld) [#/Vol] 268 10*3/uL Normal 150-450 [facility] Comment on above: Performed By: #### L 100.0100, L501.0250, L509.8002, L3890.6006 ####[facility] [address] [place], [address] RBC (Bld) [#/Vol] 3.59 10*6/uL Low 4.2-5.4 [facility] Comment on above: Performed By: #### L 100.0100, L501.0250, L509.8002, L3890.6006 ####[facility] [address] [place], [address] RDW SD 42.8 fl Normal 35.1-43.9 [facility] Comment on above: Performed By: #### L 100.0100, L501.0250, L509.8002, L3890.6006 ####[facility] [address] [place], [address] WBC (Bld) [#/Vol] 11.1 10*3/uL High 4.4-11.0 [facility] Comment on above: Performed By: #### L 100.0100, L501.0250, L509.8002, L3890.6006 ####[facility] [address] [place], [address] Eosinophil percentageOrdered By: Renetta Hinojosa on 02-06-2025 Eosinophils/100 WBC (Bld) 1.8 % 0-5 [facility] Erythrocyte distribution wid th ratioOrdered By: Renetta Hinojosa on 02-06-2025 Erythrocyte distribution width (RBC) [Ratio] 13.1 % 11.6-14.6 [facility] Erythrocyte distribution wid th standard deviationOrdered By: Renettabon Hinojosa on 02-06-2025 Erythrocyte distribution width (RBC) [Ratio] 42.8 fl 35.1-43.9 [facility] Glucose Challenge Gest 1H 50 noreen 02-06-2025 GLU GEST 50g 1H 121 mg/dL Normal 70-140 [facility] Comment on above: Performed By: #### L 100.0100, L501.0250, L509.8002, L3890.6006 ####[facility] [address] [place], [address] Glucose measurement at 2 leta rs post-dose gestational glucose tolerance testOrdered By: Renetta Hinojosa on 02-06-2025 Glucose [Mass/Vol] 121 mg/dL 70-140 [facility] HIVon 02-06-2025 HIV Non-Reactive Normal Nonreactive [facility] Comment on above: Result Comment: Non- Reactive Reactive Repeatedly reactive samples must be confirmed according to CDC recommended confirmatory algorithms. The subresults for either HIVAG or AHIV can be used as an aid in the selection of the confirmation algorithm for reactive samples. Send out specimens with Reactive results to [facility] for confirmation. Order the HIV antibody detection and differentiation: lc#[id number] Performed By: #### L 100.0100, L501.0250, L509.8002, L3890.6006 ####[facility] [address] [place], [place], [address] Hematocrit Auto (Bld) [Volum e fraction]Ordered By: Renetta Hinojosa on 02-06-2025 Hematocrit (Bld) [Volume fraction] 32.2 % Low 37-47 [facility] Hemoglobin measurementOrdere d By: Renetta Hinojosa on 02-06-2025 Hemoglobin (Bld) [Mass/Vol] 10.6 g/dL Low 12.0-15.0 [facility] Immature granulocytes/100 WB C Auto (Bld)Ordered By: Renetta Hinojosa on 02-06-2025 Immature granulocytes/100 WBC (Bld) 0.900 % 0.0-0.9 [facility] Comment on above: IG% - Immature Granu locytes (promyelocytes, myelocytes and metamyelocytes) > 1% indicates that a LEFT SHIFT is Present. Laboratory - Chemistry and C hemistry - challengeOrdered By: Renetta Hinojosa on 02-06-2025 Glucose Ql (U) Negative [facility] Laboratory - UrinalysisOrder ed By: Renetta Hinojosa on 02-06-2025 Protein Ql (U) Negative [facility] MCV (mean corpuscular volume ) determinationOrdered By: Renetta Hinojosa on 02-06-2025 MCV (RBC) [Entitic vol] 89.7 fL 81-99 [facility] Mean corpuscular hemoglobin (MCH) determinationOrdered By: Renetta Hinojosa on 02-06-2025 MCH (RBC) [Entitic mass] 29.5 pg 27.0-32.0 [facility] Mean corpuscular hemoglobin concentration (MCHC) determinationOrdered By: Renetta Hinojosa on 02-06-2025 MCHC (RBC) [Mass/Vol] 32.9 g/dL 32-36 [facility] Mean platelet volume determi nationOrdered By: Renetta Hinojosa on 02-06-2025 Platelet mean volume (Bld) [Entitic vol] 10.5 fL 6.2-12.0 [facility] Monocyte percentageOrdered B y: Renetta Hinojosa on 02-06-2025 Monocytes/100 WBC (Bld) 5.4 % 0-10 [facility] Neutrophil percentageOrdered By: Renetta Burrs on 02-06-2025 Neutrophils/100 WBC (Bld) 73.4 % High 47-70 [facility] No Panel InformationOrdered By: Renetta Hillmantings on 02-06-2025 HIV (1&2) Antibody Non-Reactive Nonreactive [facility] Comment on above: Non-ReactiveReactive Repeatedly reactive samples must be confirmed according to CDC recommended confirmatory algorithms. The subresults for either HIVAG or AHIV can be used as an aid in the selection of the confirmation algorithm for reactive samples.Send out specimens with Reactive results to [facility] for confirmation.Order the HIV antibody detection and differentiation: #[id number] Nucleated red blood cell per centageOrdered By: Renetta Hillmantings on 02-06-2025 Nucleated RBC/100 WBC (Bld) [Ratio] 0 % 0-5 [facility] OB Biophysical Prof W/O NSTo n 02-06-2025 OB Biophysical Prof W/O NST [facility] Imaging Services [address] [place] [address] OB Biophysical Prof W/O NST MR#: [id number] Acct: [id number] Name: CANDI MOYA Rep #: [id number] : 1990 F 34 From: David navarro MD PCP: Care Physician,No Primary Status: REG CLI Study: OB Biophysical Prof W/O NST Date of Exam: 11/26 Exam# [id number] Ordering Dr: Priscilla Gandara DO PROCEDURE: OB [...] IMPRESSION: Normal biophysical profile score. Reading Location: [id number] CC: Dr. Priscilla Gandara DO; No Primary Care Physician Gravity Meter Observer: Signed Normal [facility] OB Triage Physician Noteon 0 02-06-2025 OB Triage Physician Note [facility] Medical Records Department [address] [place] [address] OB Triage Physician Note 02/06/252019 MR#: [id number] Acct: [id number] Name: CANDI MOAY Rep #: [id number] : 1990 34 From: Priscilla Gandara DO PCP: Care Physician,No Primary Status:DEP CLI Y Location: [facility] HPI - General HPI Narrative CANDI MOYA, is a 34 y/o @ 28 weeks 6days who presents to [facility] from office. She was sent down [...] 2 current occupational status: unemployed current occupation: 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 -???- (more content not included)... Normal [facility] Senior Human Resources Representative Office Visit Reporton 02-06-2025 Senior Human Resources Representative Office Visit Report [facility]'s [address], [address] [place] [address] OFFICE VISIT Date of Service: 02/06/25 MR#: [id number] Acct: [id number] Name: CANDI MOYA Rep #: [id number] : 1990 Provider: MANISHA carbajal Age/Sex: 34/F [place] [facility] Status: Signed Intake Vital Signs 12/19/24 10:52 01/16/25 13:51 02/06/25 09:59 Height 5 ft 4 in 5 ft 4 in 5 ft 4 in Weight: 211 lb 1 oz BMI 36.2 BP 119/69 Intake Visit Reasons: 28wk ob/glucose Chief Complaint: 28 Week OB/Glucose Environmental Engineering Professor Required: No Is patient in pain?: No [...] 2 current occupational status: unemployed current occupation: 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 (more content not included)... Normal [facility] Platelet countOrdered By: Franc Hinojosa on 02-06-2025 Platelets (Bld) [#/Vol] 268 10*3/uL 150-450 [facility] RBC Auto (Bld) [#/Vol]Ordere d By: Renetta Hinojosa on 02-06-2025 RBC (Bld) [#/Vol] 3.59 10*6/uL Low 4.2-5.4 [facility] Syphilis Antibodieson 2024 Syphilis Abs Non-Reactive Normal Nonreactive [facility] Comment on above: Performed By: #### L 100.0100, L501.0250, L509.8002, L3890.6006 ####[facility] [address] [place], [address] White blood cell (WBC) count Ordered By: Renetta Hinojosa on 02-06-2025 WBC (Bld) [#/Vol] 11.1 10*3/uL High 4.4-11.0 [facility] Laboratory - Chemistry and C hemistry - challengeOrdered By: Renetta Hinojosa on 01-16-2025 Glucose Ql (U) Negative [facility] Laboratory - UrinalysisOrder ed By: Renetta Hinojosa on 01-16-2025 Protein Ql (U) Negative [facility] Senior Human Resources Representative Office Visit Reporton 01-16-2025 Senior Human Resources Representative Office Visit Report [facility]'s [address], [address] [place] [address] OFFICE VISIT Date of Service: 01/16/25 MR#: [id number] Acct: [id number] Name: CANDI MOYA Rep #: [id number] : 1990 Provider: MANISHA carbajal Age/Sex: 34/F Location: [facility] Status: Signed Intake Vital Signs 11/22/24 15:00 12/19/24 10:52 01/16/25 13:43 01/16/25 13:51 Height 5 ft 4 in 5 ft 4 in 5 ft 4 in 5 ft 4 in Weight: 209 lb 8 oz BMI 35.9 BP 98/60 Intake Visit Reasons: 25 wk ob Chief Complaint: 25 Week OB Environmental Engineering Professor Required: No Is patient in pain?: No [...] 2 current occupational status: unemployed current occupation: 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 Normal [facility] OB Limited (No Biometrics)on 12-26-2024 OB Limited (No Biometrics) [facility] Imaging Services [address] [place], [place] [id number] OB Limited (No Biometrics) MR#: [id number] Acct: [id number] Name: CANDI MOYA Rep #: [id number] : 1990 F 34 From: David navarro MD PCP: Care Physician,No Primary Status: REG CLI Study: OB Limited (No Biometrics) Date of Exam: 12/26 Exam# [id number] Ordering Dr: Renetta Hinojosa NP WINDING MACHINE OPERATOR -C PROCEDURE: OB LIMITED (NO BIOMETRICS) 12/26/2024 [...] Biometrics) IMPRESSION: Normal visualized spine. Reading Location: [id number] CC: WINDING MACHINE OPERATOR-C Renetta Hinojosa; No Primary Care Physician Gravity Meter Observer: Signed Normal [facility] Senior Human Resources Representative Office Visit Reporton 12-19-2024 Senior Human Resources Representative Office Visit Report [facility]'s [address], [address] [place] [address] OFFICE VISIT Date of Service: 12/19/24 MR#: [id number] Acct: [id number] Name: CANDI MOYA Rep #: [id number] : 1990 Provider: Dr. Roro cui MD Age/Sex: 34/F Location: [facility] Status: Signed Intake Vital Signs 09/22/24 14:25 11/22/24 15:00 12/19/24 10:52 12/19/24 10:52 Height 5 ft 4 in 5 ft 4 in 5 ft 4 in 5 ft 4 in Weight: 207 lb 8 oz 207 lb 8 oz BMI 35.6 35.6 BP 113/75 104/70 Intake Visit Reasons: 21wk ob Environmental Engineering Professor Required: No Is patient in pain?: No [...] 2 current occupational status: unemployed current occupation: 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 Normal [facility] OB Anatomy Scanon 12-08-2024 OB Anatomy Scan [facility] Imaging Services [address] [place] [address] OB Anatomy Scan MR#: [id number] Acct: [id number] Name: CANDI MOYA Rep #: [id number] : 1990 F 34 From: David mayers MD PCP: Care Physician,No Primary Status: REG CLI Study: OB Anatomy Scan Date of Exam: 12/08/24 Exam# [id number] Ordering Dr: Roro Troy PROCEDURE: OB ANATOMY [...] normal anatomy. Follow-up is advised. Reading Location: [place] [address] CC: Dr. 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 Care Physician Gravity Meter Observer: Signed Normal [facility] Laboratory - Chemistry and C hemistry - challengeOrdered By: Sindhu Leblanc on 11-22-2024 Glucose Ql (U) Negative [facility] Laboratory - UrinalysisOrder ed By: Sindhu Leblanc on 11-22-2024 Protein Ql (U) Negative [facility] Senior Human Resources Representative Office Visit Reporton 11-22-2024 Senior Human Resources Representative Office Visit Report [facility]'s [address], [address] [place] [address] OFFICE VISIT Date of Service: 11/22/24 MR#: [id number] Acct: [id number] Name: CANDI MOYA Rep #: [id number] : 1990 Provider: POPEYE Huber ams Age/Sex: 34/F Location[place] [facility] [place] Status: Signed Intake Vital Signs 09/22/24 14:25 10/24/24 15:27 11/22/24 15:00 Height 5 ft 4 in 5 ft 4 in 5 ft 4 in Weight: 207 lb 8 oz BMI 35.6 BP 113/75 Intake Visit Reasons: 17wk ob Chief Complaint: 17wk OB Environmental Engineering Professor Required: No Is patient in pain?: No [...] 2 current occupational status: unemployed current occupation: 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 -???-???-???-?? (more content not included)... Normal [facility] Laboratory - Chemistry and C hemistry - challengeOrdered By: Roro Troy on 10-24-2024 Glucose Ql (U) Negative [facility] Laboratory - UrinalysisOrder ed By: Roro Troy on 10-24-2024 Protein Ql (U) Negative [facility] Senior Human Resources Representative Office Visit Reporton 10-24-2024 Senior Human Resources Representative Office Visit Report [facility]'s [address], [address] [place] [address] OFFICE VISIT Date of Service: 10/24/24 MR#: [id number] Acct: [id number] Name: CANDI MOYA Rep #: [id number] : 1990 Provider: Dr. Roro cui MD Age/Sex: 34/F Location[place] [facility] [place] Status: Signed Intake Vital Signs 10/08/23 11:41 09/22/24 14:25 10/24/24 15:27 Height 5 ft 4 in 5 ft 4 in 5 ft 4 in Weight: 206 lb 4 oz BMI 35.4 BP 110/76 Intake Visit Reasons: 13wk OB Environmental Engineering Professor Required: No Is patient in pain?: No [...] 2 current occupational status: unemployed current occupation: [employer] current occupational exposures/hazards: No pets and animals: [...] physical activity do you participate in: none neftaly/spiritism: Restorationist seatbelt use: always do you feel safe at home: Yes 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 (more content not included)... Normal [facility] Chlamydia/GC PEMA aptimaon CHLAMY,NUC ACID Negative Normal Negative [facility] Comment on above: Performed By: #### M 100.2200, L7000.1800 ####[facility] [address] [place], [place], [id number] GC BY NUC ACID Negative Normal Negative [facility] Comment on above: Result Comment: Perf ormed at: =G - [facility] [id number] Gas Attendant: Josefina Gómez MD, Phone: [phone] Performed By: #### M 100.2200, L7000.1800 ####[facility] [address] [place], [place], [id number] Urine Cultureon 09-24-2024 URC Below infection leve l. Mixed Gram Positive Organisms [place] Count 1000-10,000 MIXC Mixed contaminants. Submit a new specimen if indicated. Normal [facility] Comment on above: Performed By: #### M 100.2200, L7000.1800 ####[facility] [address] [place], [place], [id number] Absolute lymphocyte countOrd ered By: Sindhu Leblanc on 09-22-2024 Lymphocytes Auto (Unsp spec) [#/Vol] 2.44 10*3/uL 0.83-4.51 [facility] Absolute neutrophil countOrd ered By: Sindhu Leblanc on 09-22-2024 Neutrophils (Bld) [#/Vol] 7.8 10*3/uL High 2.0-7.7 [facility] Automated blood erythrocyte countOrdered By: Sindhu Leblanc on 09-22-2024 RBC (Bld) [#/Vol] 4.58 10*6/uL Normal 4.2-5.4 [facility] Comment on above: Performed By: #### L 3890.6102, L3890.6301, L509.8002, L501.9985, L3890.6006, L100.0100, L509.4006, BTS #### [facility] Laboratory [address] [place], [place], [id number] Automated blood hematocrit ( percentage)Ordered By: Sindhu Leblanc on 09-22-2024 Hematocrit (Bld) [Volume fraction] 40.7 % Normal 37-47 [facility] Comment on above: Performed By: #### L 3890.6102, L3890.6301, L509.8002, L501.9985, L3890.6006, L100.0100, L509.4006, BTS #### [facility] Laboratory [address] [place], [place], [address] Automated lymphocyte count a s percentage of total leukocytesOrdered By: Sindhu Leblanc on 09-22-2024 Lymphocytes/100 WBC (Bld) 21.8 % Normal 19-41 [facility] Comment on above: Performed By: #### L 3890.6102, L3890.6301, L509.8002, L501.9985, L3890.6006, L100.0100, L509.4006, BTS #### [facility] Laboratory [address] [place], [address] Lymphocytes/100 WBC Auto (Unsp spec) 21.8 % 19-41 [facility] Basophil percentageOrdered B y: Sindhu Leblanc on 09-22-2024 Basophils/100 WBC (Bld) 0.5 % Normal 0-1 [facility] Comment on above: Performed By: #### L 3890.6102, L3890.6301, L509.8002, L501.9985, L3890.6006, L100.0100, L509.4006, BTS #### [facility] Laboratory [address] [place], [address] C. trachomatis rRNA PEMA+prob e Ql (Unsp spec)Ordered By: Sindhu Leblanc on 09-22-2024 Chlamydia DNA (PEMA) Negative Negative [facility] CBC W/Diff, Automatedon - Absolute Lymph 2.44 X10 3/uL Normal 0.83-4.51 [facility] Comment on above: Performed By: #### L 3890.6102, L3890.6301, L509.8002, L501.9985, L3890.6006, L100.0100, L509.4006, BTS #### [facility] Laboratory [address] [place], [address] Absolute Neut 7.8 X10 3/uL High 2.0-7.7 [facility] Comment on above: Performed By: #### L 3890.6102, L3890.6301, L509.8002, L501.9985, L3890.6006, L100.0100, L509.4006, BTS #### [facility] Laboratory [address] [place], [address] IG% 0.400 Normal 0.0-0.9 [facility] Comment on above: Result Comment: IG% - Immature Granulocytes (promyelocytes, myelocytes and metamyelocytes) > 1% indicates that a LEFT SHIFT is Present. Performed By: #### L 3890.6102, L3890.6301, L509.8002, L501.9985, L3890.6006, L100.0100, L509.4006, BTS #### [facility] Laboratory [address] [place], [place], [address] Nucleated RBC (Bld) [#/Vol] 0 10*3/uL Normal 0-5 [facility] Comment on above: Performed By: #### L 3890.6102, L3890.6301, L509.8002, L501.9985, L3890.6006, L100.0100, L509.4006, BTS #### [facility] Laboratory [address] [place], [address] RDW SD 40.9 fl Normal 35.1-43.9 [facility] Comment on above: Performed By: #### L 3890.6102, L3890.6301, L509.8002, L501.9985, L3890.6006, L100.0100, L509.4006, BTS #### [facility] Laboratory [address] [place], [address] Chlamydia trachomatis rRNA d etection by probe and target amplification methodOrdered By: Sindhu Leblanc on 09-22-2024 C. trachomatis rRNA PEMA+probe Ql (Unsp spec) Negative Negative [facility] Eosinophil percentageOrdered By: Sindhu Leblanc on 09-22-2024 Eosinophils/100 WBC (Bld) 1.2 % Normal 0-5 [facility] Comment on above: Performed By: #### L 3890.6102, L3890.6301, L509.8002, L501.9985, L3890.6006, L100.0100, L509.4006, BTS #### [facility] Laboratory [address] [place], [address] Erythrocyte distribution wid th ratioOrdered By: Sindhu Leblanc on 09-22-2024 Erythrocyte distribution width (RBC) [Ratio] 12.6 % Normal 11.6-14.6 [facility] Comment on above: Performed By: #### L 3890.6102, L3890.6301, L509.8002, L501.9985, L3890.6006, L100.0100, L509.4006, BTS #### [facility] Laboratory [address] [place], [place], [address] Erythrocyte distribution wid th standard deviationOrdered By: Sindhu Leblanc on 09-22-2024 Erythrocyte distribution width (RBC) [Entitic vol] 40.9 fL 35.1-43.9 [facility] Erythrocyte distribution width (RBC) [Ratio] 40.9 fl 35.1-43.9 [facility] HBV surface Ag Ql (S)Ordered By: Sinhdu Leblanc on 09-22-2024 Hepatitis B Surface Antigen Non-Reactive Nonreactive [facility] Comment on above: Reactive: Presumptiv e evidence of HBV. Repeatedly reactive samples must be confirmed using a neutralization test ([employer] HBsAg Confirmatory Test)Non-Reactive: HBsAg not detected; does not exclude the possibility of exposure to HBV Hemoglobin A1c percentageOrd ered By: Sindhu Leblanc on 09-22-2024 HbA1c (Bld) [Mass fraction] 5.4 % Low <=5.6 [facility] Comment on above: Performed By: #### L 3890.6102, L3890.6301, L509.8002, L501.9985, L3890.6006, L100.0100, L509.4006, BTS ####[facility] [address] [place], [place], [address] Hemoglobin measurementOrdere d By: Sindhu Leblanc on 09-22-2024 Hemoglobin (Bld) [Mass/Vol] 14.0 g/dL Normal 12.0-15.0 [facility] Comment on above: Performed By: #### L 3890.6102, L3890.6301, L509.8002, L501.9985, L3890.6006, L100.0100, L509.4006, BTS #### [facility] Laboratory [address] [place], [address] Hepatitis C antibodyOrdered By: Sindhu Leblanc on 09-22-2024 Hepatitis C Antibody Non-Reactive Nonreactive [facility] Comment on above: Reactive: Presumptiv e evidence of antibodies to HCV. Follow CDC recommendations for supplemental testing.Non-Reactive: Antibodies to HCV were not detected; does not exclude the possibility of exposure to HCVReactive Results are presumptive evidence of antibodies to HCV. Follow CDC recommendations for supplemental testing.Order confirmation testing: HCV Quant by PCR testing - HCVPCR #[id number] Non Reactive: < 0.8 Equivocal: >/= 0.8 to < 1.0 Reactive: >/= 1.0The CDC requires that a reactive/equivocal HCV antibody result be sent out for confirmation. HCV Quant by PCR testing. Immature granulocytes/100 WB C Auto (Bld)Ordered By: Sindhu Leblanc on 09-22-2024 Immature granulocytes/100 WBC (Bld) 0.400 % 0.0-0.9 [facility] Comment on above: IG% - Immature Granu locytes (promyelocytes, myelocytes and metamyelocytes) > 1% indicates that a LEFT SHIFT is Present. L3890.6006on 09-22-2024 HIV Non-Reactive Normal Nonreactive [facility] Comment on above: Result Comment: Non- Reactive Reactive Repeatedly reactive samples must be confirmed according to CDC recommended confirmatory algorithms. The subresults for either HIVAG or AHIV can be used as an aid in the selection of the confirmation algorithm for reactive samples. Send out specimens with Reactive results to [facility] for confirmation. Order the HIV antibody detection and differentiation: lc#[id number] Performed By: #### L 3890.6102, L3890.6301, L509.8002, L501.9985, L3890.6006, L100.0100, L509.4006, BTS ####[facility] [address] [place], [place], [address] L3890.6102on 09-22-2024 HEP B Surf Ag Non-Reactive Normal Nonreactive [facility] Comment on above: Result Comment: Reac tive: Presumptive evidence of HBV. Repeatedly reactive samples must be confirmed using a neutralization test ([employer] HBsAg Confirmatory Test) Non-Reactive: HBsAg not detected; does not exclude the possibility of exposure to HBV Performed By: #### L 3890.6102, L3890.6301, L509.8002, L501.9985, L3890.6006, L100.0100, L509.4006, BTS ####[facility] [address] [facility] [place], [address] L3890.6301on 09-22-2024 Hepatitis C Ab Non-Reactive Normal Nonreactive [facility] Comment on above: Result Comment: Reac tive: Presumptive evidence of antibodies to HCV. Follow CDC recommendations for supplemental testing. Non-Reactive: Antibodies to HCV were not detected; does not exclude the possibility of exposure to HCV Reactive Results are presumptive evidence of antibodies to HCV. Follow CDC recommendations for supplemental testing. Order confirmation testing: HCV Quant by PCR testing - HCVPCR #[id number] Non Reactive: < 0.8 Equivocal: >/= 0.8 to < 1.0 Reactive: >/= 1.0 The CDC requires that a reactive/equivocal HCV antibody result be sent out for confirmation. HCV Quant by PCR testing. Performed By: #### L 3890.6102, L3890.6301, L509.8002, L501.9985, L3890.6006, L100.0100, L509.4006, BTS ####[facility] [address] [facility] [place], [address] L509.4006on 09-22-2024 Rubella IgG REAC Normal Nonreactive [facility] Comment on above: Result Comment: Anti body Result: Interpretation Non-Reactive: Non-Immune Reactive: Immune The following results were obtained with the [employer] Rubella IgG assay. Results from assays of other manufacturers cannot be used interchangeably. Performed By: #### L 3890.6102, L3890.6301, L509.8002, L501.9985, L3890.6006, L100.0100, L509.4006, BTS ####[facility] [address] [facility] [place], [address] L509.8002on 03-21-2025 Syphilis Abs Non-Reactive Normal Nonreactive [facility] Comment on above: Performed By: #### L 3890.6102, L3890.6301, L509.8002, L501.9985, L3890.6006, L100.0100, L509.4006, BTS ####[facility] [address] [place], [address] Laboratory - Microbiology an d Antimicrobial susceptibilityOrdered By: Sindhu Leblanc on 09-22-2024 HBV surface Ag Ql (S) Non-Reactive Nonreactive [facility] Comment on above: Reactive: Presumptiv e evidence of HBV. Repeatedly reactive samples must be confirmed using a neutralization test ([employer] to [employer] HBsAg Confirmatory Test)Non-Reactive: HBsAg not detected; does not exclude the possibility of exposure to HBV Lymphocytes Auto (Unsp spec) [#/Vol]Ordered By: Sindhu Leblanc on 09-22-2024 Lymphocytes (Bld) [#/Vol] 2.44 10*3/uL 0.83-4.51 [facility] MCV (mean corpuscular volume ) determinationOrdered By: Sindhu Leblanc on 09-22-2024 MCV (RBC) [Entitic vol] 88.9 fL Normal 81-99 [facility] Comment on above: Performed By: #### L 3890.6102, L3890.6301, L509.8002, L501.9985, L3890.6006, L100.0100, L509.4006, BTS #### [facility] Laboratory [address] [place], [place], [address] Mean corpuscular hemoglobin (MCH) determinationOrdered By: Sindhu Lbelanc on 09-22-2024 MCH (RBC) [Entitic mass] 30.6 pg Normal 27.0-32.0 [facility] Comment on above: Performed By: #### L 3890.6102, L3890.6301, L509.8002, L501.9985, L3890.6006, L100.0100, L509.4006, BTS #### [facility] Laboratory [address] [place], [place], [address] Mean corpuscular hemoglobin concentration (MCHC) determinationOrdered By: Sindhu Leblanc on 09-22-2024 MCHC (RBC) [Mass/Vol] 34.4 g/dL Normal 32-36 [facility] Comment on above: Performed By: #### L 3890.6102, L3890.6301, L509.8002, L501.9985, L3890.6006, L100.0100, L509.4006, BTS #### [facility] Laboratory [address] [place], [place], [address] Mean platelet volume determi nationOrdered By: Sindhu Leblanc on 09-22-2024 Platelet mean volume (Bld) [Entitic vol] 10.3 fL Normal 6.2-12.0 [facility] Comment on above: Performed By: #### L 3890.6102, L3890.6301, L509.8002, L501.9985, L3890.6006, L100.0100, L509.4006, BTS #### [facility] Laboratory [address] [place], [address] Monocyte percentageOrdered B y: Sindhu Leblanc on 09-22-2024 Monocytes/100 WBC (Bld) 6.5 % Normal 0-10 [facility] Comment on above: Performed By: #### L 3890.6102, L3890.6301, L509.8002, L501.9985, L3890.6006, L100.0100, L509.4006, BTS #### [facility] Laboratory [address] [place], [address] Neisseria gonorrhoeae nuclei c acid detection by amplified probe techniqueOrdered By: Sindhu Leblanc on 09-22-2024 N. gonorrhoeae DNA PEMA+probe Ql (Unsp spec) Negative Negative [facility] Comment on above: Performed at: =[facility] [address] [id number] Director: Josefina Gómez MD, Phone: [phone] Neutrophil percentageOrdered By: Sindhu Leblanc on 09-22-2024 Neutrophils/100 WBC (Bld) 69.6 % Normal 47-70 [facility] Comment on above: Performed By: #### L 3890.6102, L3890.6301, L509.8002, L501.9985, L3890.6006, L100.0100, L509.4006, BTS #### [facility] Laboratory [address] [place], [address] No Panel InformationOrdered By: Sindhu Leblanc on 09-22-2024 HIV (1&2) Antibody Non-Reactive Nonreactive [facility] Comment on above: Non-ReactiveReactive Repeatedly reactive samples must be confirmed according to CDC recommended confirmatory algorithms. The subresults for either HIVAG or AHIV can be used as an aid in the selection of the confirmation algorithm for reactive samples.Send out specimens with Reactive results to [facility] for confirmation.Order the HIV antibody detection and differentiation: #[id number] Nucleated red blood cell per centageOrdered By: Sindhu Leblanc on 09-22-2024 Nucleated RBC/100 WBC (Bld) [Ratio] 0 % 0-5 [facility] Senior Human Resources Representative Office Visit Reporton 09-22-2024 Senior Human Resources Representative Office Visit Report [facility] [address], [address] [place] [address] OFFICE VISIT Date of Service: 09/22/24 MR#: [id number] Acct: [id number] Name: CANDI MOYA Rep #: [id number] : 1990 Provider: POPEYE Huber ams Age/Sex: 34/F [place] [facility] [place]: Signed Intake Vital Signs 10/08/23 11:41 [...] H istory tablet Last Menstrual Period: 07/21/24 [facility] Medical History Vaginal after Blood clotting disorder [...] No current occupational status: unemployed current occupation: 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 Hx Para 2 [...] live - full term 9#11oz Male none [facility] Hay Delivery Date: 02/04/21 Last [...] Date -???-???-???-?? (more content not included)... Normal [facility] Platelet countOrdered By: Nic Leblanc on 09-22-2024 Platelets (Bld) [#/Vol] 356 10*3/uL Normal 150-450 [facility] Comment on above: Performed By: #### L 3890.6102, L3890.6301, L509.8002, L501.9985, L3890.6006, L100.0100, L509.4006, BTS #### [facility] [address] [place], [place], [id number] Rubella immune status determ ination by IgG antibody assayOrdered By: Sindhu Leblanc on 09-22-2024 Rubella IgG Antibody REAC Nonreactive [facility] Comment on above: Antibody Result: Int erpretationNon-Reactive: Non-ImmuneReactive: ImmuneThe following results were obtained with the [employer] Rubella IgG assay. Results from assays of other manufacturers cannot be used interchangeably. T. pallidum abOrdered By: Nic Leblanc on 09-22-2024 Syphilis Total Antibody Non-Reactive Nonreactiv e [facility] Type AND Screenon 09-22-2024 Ab SCREEN GEL Negative Normal [facility] Comment on above: Order Comment: PN Performed By: #### L 3890.6102, L3890.6301, L509.8002, L501.9985, L3890.6006, L100.0100, L509.4006, BTS ####[facility] [id number] [facility]. [place], [place], [id number] Urine cultureOrdered By: Jose Cruz Leblanc on 09-22-2024 Bacteria identified Cx Nom (U) Positive Abnormal [facility] White blood cell (WBC) count Ordered By: Sindhu Leblanc on 09-22-2024 WBC (Bld) [#/Vol] 11.2 10*3/uL High 4.4-11.0 [facility] Comment on above: Performed By: #### L 3890.6102, L3890.6301, L509.8002, L501.9985, L3890.6006, L100.0100, L509.4006, BTS #### [facility] [address] [facility] [address] [place], [place], [id number] Absolute lymphocyte countOrd ered By: Roro Troy on 08-21-2023 Lymphocytes Auto (Unsp spec) [#/Vol] 3.32 10*3/uL 0.83-4.51 [facility] Automated lymphocyte count a s percentage of total leukocytesOrdered By: Roro Troy on 08-21-2023 Lymphocytes/100 WBC Auto (Unsp spec) 22.1 % 19-41 [facility] Basophil percentageOrdered B y: Roro Troy on 08-21-2023 Basophils/100 WBC (Bld) 0.5 % 0-1 [facility] Eosinophils/100 WBC (Bld) 1.3 % 0-5 [facility] Hemoglobin (Bld) [Mass/Vol] 11.0 g/dL 12.0-15.0 [facility] Monocytes/100 WBC (Bld) 6.7 % 0-10 [facility] Neutrophils (Bld) [#/Vol] 10.3 10*3/uL 2.0-7.7 [facility] Neutrophils/100 WBC (Bld) 68.5 % 47-70 [facility] WBC (Bld) [#/Vol] 15.0 10*3/uL 4.4-11.0 [facility] Determination of erythrocyte mean corpuscular volume (MCV)Ordered By: Roro Troy on 08-21-2023 MCV (RBC) [Entitic vol] 81.3 fL 81-99 [facility] Erythrocyte distribution wid th ratioOrdered By: Roro Troy on 08-21-2023 Erythrocyte distribution width (RBC) [Ratio] 13.6 % 11.6-14.6 [facility] Erythrocyte distribution wid th standard deviationOrdered By: Roro Troy on 08-21-2023 Erythrocyte distribution width (RBC) [Entitic vol] 40.1 fL 35.1-43.9 [facility] Hematocrit Auto (Bld) [Volum e fraction]Ordered By: Roro Troy on 08-21-2023 Hematocrit (Bld) [Volume fraction] 34.4 % 37-47 [facility] Immature granulocytes/100 WB C Auto (Bld)Ordered By: Roro Troy on 08-21-2023 Immature granulocytes/100 WBC (Bld) 0.900 % 0.0-0.9 [facility] Comment on above: IG% - Immature Granu locytes (promyelocytes, myelocytes and metamyelocytes) > 1% indicates that a LEFT SHIFT is Present. Laboratory - Hematology and Cell countsOrdered By: Roro Troy on 08-21-2023 MCH (RBC) [Entitic mass] 26.0 pg 27.0-32.0 [facility] MCHC (RBC) [Mass/Vol] 32.0 g/dL 32-36 [facility] Nucleated RBC/100 WBC (Bld) [Ratio] 0 % 0-5 [facility] Platelet mean volume (Bld) [Entitic vol] 10.4 fL 6.2-12.0 [facility] Platelets (Bld) [#/Vol] 264 10*3/uL 150-450 [facility] RBC Auto (Bld) [#/Vol]Ordere d By: Roro Troy on 08-21-2023 RBC (Bld) [#/Vol] 4.23 10*6/uL 4.2-5.4 [facility] Serum Treponema species anti body detectionOrdered By: Roro Troy on 08-21-2023 Treponema sp Ab Ql (S) Non-Reactive [facility] Comment on above: qc ok Laboratory - Chemistry and C hemistry - challengeon 08-13-2023 Glucose Ql (U) Negative [facility] Laboratory - Urinalysison Protein Ql (U) Negative [facility] Laboratory - Chemistry and C hemistry - challengeon 08-06-2023 Glucose Ql (U) Negative [facility] Laboratory - Urinalysison Protein Ql (U) Negative [facility] Laboratory - Chemistry and C hemistry - challengeon 07-30-2023 Glucose Ql (U) Negative [facility] Laboratory - Urinalysison Protein Ql (U) Negative [facility] Laboratory - Chemistry and C hemistry - challengeon 07-16-2023 Glucose Ql (U) Negative [facility] Laboratory - Urinalysison Protein Ql (U) Negative [facility] Laboratory - Chemistry and C hemistry - challengeon 07-02-2023 Glucose Ql (U) Negative [facility] Laboratory - Urinalysison Protein Ql (U) Negative [facility] Laboratory - Chemistry and C hemistry - challengeon 06-14-2023 Glucose Ql (U) Negative [facility] Laboratory - Urinalysison Protein Ql (U) Negative [facility] Absolute lymphocyte countOrd ered By: Roro Troy on 06-04-2023 Lymphocytes Auto (Unsp spec) [#/Vol] 2.87 10*3/uL 0.83-4.51 [facility] Basophil percentageOrdered B y: Roro Troy on 06-04-2023 Basophils/100 WBC (Bld) 0.4 % 0-1 [facility] Eosinophils/100 WBC (Bld) 1.7 % 0-5 [facility] Neutrophils (Bld) [#/Vol] 9.6 10*3/uL 2.0-7.7 [facility] Neutrophils/100 WBC (Bld) 69.6 % 47-70 [facility] WBC (Bld) [#/Vol] 13.8 10*3/uL 4.4-11.0 [facility] Blood erythrocytes count (nu mber/volume)Ordered By: Roro Troy on 06-04-2023 RBC (Bld) [#/Vol] 3.55 10*6/uL 4.2-5.4 [facility] Blood hemoglobin measurement (mass/volume)Ordered By: Roro Troy on 06-04-2023 Hemoglobin (Bld) [Mass/Vol] 11.1 g/dL 12.0-15.0 [facility] Blood lymphocytes/100 leukoc ytesOrdered By: Roro Troy on 06-04-2023 Lymphocytes/100 WBC (Bld) 20.8 % 19-41 [facility] Blood monocytes/100 leukocyt esOrdered By: Roro Troy on 06-04-2023 Monocytes/100 WBC (Bld) 6.1 % 0-10 [facility] Blood platelet mean volumeOr dered By: Roro Troy on 06-04-2023 Platelet mean volume (Bld) [Entitic vol] 9.6 fL 6.2-12.0 [facility] Determination of erythrocyte mean corpuscular volume (MCV)Ordered By: Roro Troy on 06-04-2023 MCV (RBC) [Entitic vol] 93.0 fL 81-99 [facility] Gestational diabetes screen 1-hour screen with 50g oral glucose loadOrdered By: Roro Troy on 06-04-2023 Glucose 1 Hr post 50 g glucose PO [Mass/Vol] 102 mg/dL 70-140 [facility] HIV 1 and HIV-2 antibody ass ay with HIV-1 p24 antigen detectionOrdered By: Priscilla Sidhu on 06-04-2023 HIV 1+2 Ab+HIV1 p24 Ag IA Ql Non-Reactive Nonreactive [facility] Hematocrit Auto (Bld) [Volum e fraction]Ordered By: Roro Troy on 06-04-2023 Hematocrit (Bld) [Volume fraction] 33.0 % 37-47 [facility] Laboratory - Chemistry and C hemistry - challengeon 06-04-2023 Glucose Ql (U) Negative [facility] Laboratory - Hematology and Cell countsOrdered By: Roro Troy on 06-04-2023 Erythrocyte distribution width (RBC) [Entitic vol] 39.9 fL 35.1-43.9 [facility] Erythrocyte distribution width (RBC) [Ratio] 11.9 % 11.6-14.6 [facility] Immature granulocytes/100 WBC (Bld) 1.400 % 0.0-0.9 [facility] Comment on above: IG% - Immature Granu locytes (promyelocytes, myelocytes and metamyelocytes) > 1% indicates that a LEFT SHIFT is Present. MCH (RBC) [Entitic mass] 31.3 pg 27.0-32.0 [facility] Nucleated RBC/100 WBC (Bld) [Ratio] 0 % 0-5 [facility] Laboratory - Urinalysison Protein Ql (U) Negative [facility] MCHC Auto (RBC) [Mass/Vol]Or dered By: Roro Troy on 06-04-2023 MCHC (RBC) [Mass/Vol] 33.6 g/dL 32-36 [facility] Platelets bldOrdered By: Omid Troy on 06-04-2023 Platelets (Bld) [#/Vol] 284 10*3/uL 150-450 [facility] Serum Treponema species anti body detectionOrdered By: Priscilla Sidhu on 06-04-2023 Treponema sp Ab Ql (S) Non-Reactive [facility] Laboratory - Chemistry and C hemistry - challengeon 05-18-2023 Glucose Ql (U) Negative [facility] Laboratory - Urinalysison Protein Ql (U) Negative [facility] Neisseria gonorrhoeae genita l PCROrdered By: Roro Troy on 04-14-2023 N. gonorrhoeae DNA PEMA+probe Ql (Genital specimen) [facility] No Panel InformationOrdered By: Roro Troy on 04-14-2023 Chlamydia trachomatis (PCR) [facility] Neisseria gonorrhoeae genita l PCROrdered By: Roro Troy on 04-13-2023 N. gonorrhoeae DNA PEMA+probe Ql (Genital specimen) [facility] No Panel InformationOrdered By: Roro Troy on 04-13-2023 Chlamydia trachomatis (PCR) [facility] Laboratory - Chemistry and C hemistry - challengeon 03-17-2023 Glucose Ql (U) Negative [facility] Laboratory - Urinalysison Protein Ql (U) Negative [facility] Absolute lymphocyte countOrd ered By: Sindhu Leblanc on 03-09-2023 Lymphocytes Auto (Unsp spec) [#/Vol] 2.32 10*3/uL 0.83-4.51 [facility] Basophil percentageOrdered B y: Sindhu Leblanc on 03-09-2023 Basophils/100 WBC (Bld) 0.5 % 0-1 [facility] Eosinophils/100 WBC (Bld) 1.4 % 0-5 [facility] Neutrophils (Bld) [#/Vol] 8.0 10*3/uL 2.0-7.7 [facility] Neutrophils/100 WBC (Bld) 72.4 % 47-70 [facility] WBC (Bld) [#/Vol] 11.1 10*3/uL 4.4-11.0 [facility] Blood erythrocytes count (nu mber/volume)Ordered By: Sindhu Leblanc on 03-09-2023 RBC (Bld) [#/Vol] 3.91 10*6/uL 4.2-5.4 [facility] Blood hemoglobin measurement (mass/volume)Ordered By: Sindhu Leblanc on 03-09-2023 Hemoglobin (Bld) [Mass/Vol] 12.9 g/dL 12.0-15.0 [facility] Blood lymphocytes/100 leukoc ytesOrdered By: Sindhu Leblanc on 03-09-2023 Lymphocytes/100 WBC (Bld) 20.9 % 19-41 [facility] Blood monocytes/100 leukocyt esOrdered By: Sindhu Leblanc on 03-09-2023 Monocytes/100 WBC (Bld) 4.3 % 0-10 [facility] Blood platelet mean volumeOr dered By: Sindhu Leblanc on 03-09-2023 Platelet mean volume (Bld) [Entitic vol] 9.8 fL 6.2-12.0 [facility] Determination of erythrocyte mean corpuscular volume (MCV)Ordered By: Sindhu Leblanc on 03-09-2023 MCV (RBC) [Entitic vol] 91.8 fL 81-99 [facility] Gestational diabetes screen 1-hour screen with 50g oral glucose loadOrdered By: Sindhu Leblanc on 03-09-2023 Glucose 1 Hr post 50 g glucose PO [Mass/Vol] 116 mg/dL 70-140 [facility] HIV 1 and HIV-2 antibody ass ay with HIV-1 p24 antigen detectionOrdered By: Sindhu Leblanc on 03-09-2023 HIV 1+2 Ab+HIV1 p24 Ag IA Ql Non-Reactive Nonreactive [facility] Hematocrit Auto (Bld) [Volum e fraction]Ordered By: Sindhu Leblanc on 03-09-2023 Hematocrit (Bld) [Volume fraction] 35.9 % 37-47 [facility] Laboratory - Hematology and Cell countsOrdered By: Sindhu Leblanc on 03-09-2023 Erythrocyte distribution width (RBC) [Entitic vol] 41.1 fL 35.1-43.9 [facility] Erythrocyte distribution width (RBC) [Ratio] 12.5 % 11.6-14.6 [facility] Immature granulocytes/100 WBC (Bld) 0.500 % 0.0-0.9 [facility] Comment on above: IG% - Immature Granu locytes (promyelocytes, myelocytes and metamyelocytes) > 1% indicates that a LEFT SHIFT is Present. MCH (RBC) [Entitic mass] 33.0 pg 27.0-32.0 [facility] Nucleated RBC/100 WBC (Bld) [Ratio] 0 % 0-5 [facility] MCHC Auto (RBC) [Mass/Vol]Or dered By: Sindhu Leblanc on 03-09-2023 MCHC (RBC) [Mass/Vol] 35.9 g/dL 32-36 [facility] No Panel InformationOrdered By: Sindhu Leblanc on 03-09-2023 Hepatitis B Surface Antigen Non-Reactive Nonreactive [facility] Hepatitis C Antibody Non-Reactive Nonreactive [facility] Comment on above: Non Reactive: < 0.8 Equivocal: >/= 0.8 to < 1.0 Reactive: >/= 1.0The CDC recommends that a reactive/equivocal HCV antibody result be followed up by the HCV Nucleic Acid Amplificationtest (775326) Rubella IgG Antibody Reactive Nonreactive [facility] Comment on above: Antibody Results Int erpretation of Immune Status Non Reactive Presumed Non-Immune Equivocal Equivocal Reactive Presumed Immune Platelets bldOrdered By: Jose Cruz Leblanc on 03-09-2023 Platelets (Bld) [#/Vol] 270 10*3/uL 150-450 [facility] Serum Treponema species anti body detectionOrdered By: Sindhu Leblanc on 03-09-2023 Treponema sp Ab Ql (S) Non-Reactive [facility] Serum Varicella zoster virus IgG antibody assay by immunoassay (units/volume)Ordered By: Sindhu Leblanc on 03-09-2023 VZV IgG IA Qn (S) < 135 index Immune >165 [facility] Comment on above: Negative <135 Equivo dimitris 135 - 165 Positive >165A positive result generally indicates exposure to thepathogen or administration of specific immunoglobulins,but it is not indication of active infection or stageof disease.Performed at: - [facility] [id number] Director: Kwan Durbin PhD, Phone: [phone] Laboratory - Chemistry and C hemistry - challengeon 02-19-2023 Glucose Ql (U) Negative [facility] Laboratory - Urinalysison Protein Ql (U) Negative [facility] Basophil percentageOrdered B y: Sindhu Leblanc on 01-21-2023 Basophil percentage 0 SEEN /hpf 0-5 [facility] Bilirubin Test strip Ql (U)O rdered By: Sindhu Leblanc on 01-21-2023 Bilirubin Ql (U) Negative Negative [facility] Chlamydia trachomatis rRNA d etection by probe and target amplification methodOrdered By: Sindhu Leblanc on 01-21-2023 C. trachomatis rRNA PEMA+probe Ql (Unsp spec) Negative Negative [facility] Culture, urineOrdered By: Nic Leblanc on 01-21-2023 Bacteria identified Cx Nom (U) Streptococcus agalactiae (B) [facility] Bacteria identified Cx Nom (U) Positive [facility] Ketones Test strip Ql (U)Ord ered By: Sindhu Leblanc on 01-21-2023 Ketones Ql (U) Negative Negative [facility] Laboratory - Chemistry and C hemistry - challengeon 01-21-2023 Glucose Ql (U) Negative [facility] Laboratory - Microbiology an d Antimicrobial susceptibilityOrdered By: Sindhu Leblanc on 01-21-2023 N. gonorrhoeae DNA PEMA+probe Ql (Unsp spec) Negative Negative [facility] Comment on above: Performed at: =[facility] [address] [id number] Director: Josefina Gómez MD, Phone: [phone] Laboratory - Urinalysison Protein Ql (U) Negative [facility] Mucus LM Ql (Urine sed)Order ed By: Sindhu Leblanc on 01-21-2023 Mucus Ql (Urine sed) 0 SEEN /hpf [facility] Nitrite Test strip Ql (U)Ord ered By: Sindhu Leblanc on 01-21-2023 Nitrite Ql (U) Negative Negative [facility] Protein Test strip Ql (U)Ord ered By: Sindhu Leblanc on 01-21-2023 Protein Ql (U) Negative Negative [facility] Squamous epithelial cells de tection in urine sediment by light microscopyOrdered By: Sindhu Leblanc on 01-21-2023 Epithelial cells.squamous LM Ql (Urine sed) 0-5 SEEN /hpf 5-10 [facility] Urine blood detectionOrdered By: Sindhu Leblanc on 01-21-2023 RBC Ql (U) Negative Negative [facility] RBC Ql (U) 0 SEEN /hpf 0-5 [facility] Urine clarityOrdered By: Jose Cruz Leblanc on 01-21-2023 Clarity (U) Sl. Cloudy Clear [facility] Urine color determinationOrd ered By: Sindhu Leblanc on 01-21-2023 Color (U) Yellow Yellow [facility] Urine glucose detectionOrder ed By: Sindhu Leblanc on 01-21-2023 Glucose Ql (U) Normal mg/dl Normal [facility] Urine leukocyte esterase det ection by dipstickOrdered By: Sindhu Leblanc on 01-21-2023 Leukocyte esterase Test strip Ql (U) Negative Negative [facility] Urine pHOrdered By: Sindhu ferrara on 01-21-2023 pH (U) 6.0 [pH] 5.0 - 8.0 [facility] Urine sediment bacteria coun t by microscopy (number/high power field)Ordered By: Sindhu Leblanc on 01-21-2023 Bacteria LM.HPF (Urine sed) [#/Area] 0 /[HPF] None Seen [facility] Urine specific gravity measu rementOrdered By: Sindhu Leblanc on 01-21-2023 Specific gravity (U) [Rel density] 1.025 1.002-1.030 [facility] Urobilinogen Auto test strip Ql (U)Ordered By: Sindhu Leblanc on 01-21-2023 Urobilinogen Ql (U) Normal mg/dl Normal [facility] Serum or plasma choriogonado tropin detectionOrdered By: Renetta Hinojosa on 10-05-2022 HCG ( test) Ql < 1 mIU/mL <4 [facility] Comment on above: hCG levels with Gest ational AgeGestational Age hCG mIU/mL (IU/L)0.2 - 1 week 5 - 501-2 weeks 50 - 5002-3 weeks 100 - 55253-4 weeks 500 - 168961-8 weeks 1000 - 151389-5 weeks 09844 - 100,0006-8 weeks 88188 - 200,0002-3 months 37897 - 100,000 Serum or plasma choriogonado tropin detectionOrdered By: Dr. Sidhu on 09-24-2022 HCG ( test) Ql 7 mIU/mL <4 [facility] Serum or plasma choriogonado tropin detectionOrdered By: Dr. Sidhu on 09-18-2022 HCG ( test) Ql 196 mIU/mL <4 [facility] Comment on above: hCG levels with Gest ational AgeGestational Age hCG mIU/mL (IU/L)0.2 - 1 week 5 - 501-2 weeks 50 - 5002-3 weeks 100 - 96921-9 weeks 500 - 440127-5 weeks 1000 - 707079-6 weeks 83231 - 100,0006-8 weeks 13682 - 200,0002-3 months 24231 - 100,000 Serum or plasma choriogonado tropin detectionOrdered By: Dr. Sidhu on 09-16-2022 HCG ( test) Ql 1017 mIU/mL <4 [facility] Comment on above: hCG levels with Gest ational AgeGestational Age hCG mIU/mL (IU/L)0.2 - 1 week 5 - 501-2 weeks 50 - 5002-3 weeks 100 - 49084-0 weeks 500 - 041526-5 weeks 1000 - 639633-7 weeks 20710 - 100,0006-8 weeks 58415 - 200,0002-3 months 43143 - 100,000 Laboratory - Cytologyon 08-05 Cytology report Cyto stain.thin prep Doc (Cvx/Vag) [facility] Work Phone: RECEIVING SPECIALIST - Office Visiton 08-05 RECEIVING SPECIALIST - Office Visit Diagnoses/Problems Assessed Encounter for Papanicolaou smear of cervix (V76.2) (Z12.4) Pap test, as part of routine gynecological examination (V76.2) (Z01.419) 08/05/2020: ASC-US, HPV negative Heterozygous factor V Leiden mutation (289.81) (D68.51) Orders PAP BAND SAW MARKER, Cytology; Status:In Progress - Specimen/Data Collected,Retrospective Authorization; Done: [id number] Last Menstrual Period (LMP): : 08/13/2021 PAP [...] Tablet Vitals Vital Signs Recorded: 20Aug2021 01:58PM Bywtlyrtcfx55.8 F Wlanlpul801 Elhujrfdw36 Height5 ft 4 in Jsotkk66.2 kg BMI Ddeiloblpc59.62 kg/m2 BSA Calculated1.91 Tobacco Useb) No [id number] Physical Exam PHYSICAL EXAMINATION: Well-developed, well nourished, [...] Aug 20 2021 2:16PM EST (Author) Normal [employer] Tobacco Screening.on Last menstrual period start date 13Aug2021 [facility] Work Phone: Tobacco use status CP b) No [facility] Work Phone: RECEIVING SPECIALIST - Visiton 03-04-2021 RECEIVING SPECIALIST - Visit Chief Complaint Patient is here [...] Subcutaneous Solution; INJECT 40 MG Daily; Therapy: [id number] to (Evaluate:20Mar2021) Requested for: [id number]; Last Rx:[id number] Ordered Rx By: Tang Rios; Dispense: 30 Days ; #:30 X 0.4 ML Syringe; Refill: 0;For: Heterozygous factor V Leiden mutation, Status post section routine follow-up; SHERRI = N; Verified Transmission to [id number]; Last Updated By: Aveillant; 02/18/2021 1:23:45 PM Vitamin 27-0.8 MG Oral Tablet; Therapy: (Recorded:10Jul2020) to Recorded Dispense: 0 Days ; #: Sufficient Tablet; Refill: 0;For: PMH: Positive urine test; SHERRI = N; Record; Last Updated By: Priscilla Adair; 07/10/2020 9:13:00 AM Vitals Vital Signs Recorded: [id number] 01:37PM Vnpbzglwdep67.2 F Pqagcdif961 Nifnftgav27 Height5 ft 4 in Afjdad46.1 kg BMI Lzrkzjesaj04.2 kg/m2 BSA Calculated1.9 Physical Exam PHYSICAL EXAMINATION: [...] contraceptive pills; SHERRI = N; Sent To: [facility] Provider Impressions 1. checkup 2. Contraceptive counseling 3. Heterozygote for factor V Leiden Recommend progestin only control pill for contraception. Patient to return later in the year for her annual exam. Signatures Electronically signed by : Rj Hatch MD; Mar 04 2021 2:24PM EST (Author) Normal [employer] RECEIVING SPECIALIST - Post Opon RECEIVING SPECIALIST - Post Op Diagnoses/Problems Assessed Status post section routine follow-up (V24.2,V45.89) (Z39.2,Z98.891) Heterozygous factor V Leiden mutation (289.81) (D68.51) Orders Heterozygous factor V Leiden mutation, Status post section routine follow-up Start: Enoxaparin Sodium 40 MG/0.4ML Subcutaneous Solution; INJECT 40 MG Daily Follow-up visit in 1 month Outpatient Follow-up Status: Hold For - Scheduling Requested for: [id number] Provider Impressions 1)Post op-patient doing well. Pain [...] WANTS TO DISCUSS RESTRICTIONS. History of Present Uejxkrq98-hbrb-fgb presents for 2-week postop status post primary [...] Tablet Vitals Vital Signs Recorded: 18Feb2021 11:08AM Hcvhmfazedn07.3 F Fkhecpnh470 Aiiadhslt65 Height5 ft 4 in Kmfajq390 lb 3.2 oz BMI Mbbhkxsfgp45.96 kg/m2 BSA Calculated1.9 Physical Exam General: None [...] Feb 18 2021 1:15PM EST (Author) Normal [employer] Daily Progress Note - OB-Pos t-partumon 02-07-2021 Daily Progress Note - JM-Curt-lqbwen Current Stage: Stage: Post- Subjective Data: Post : Ambulate: Yes Flatus: Yes Tolerate Diet: Yes Lochia: Light : POD #2 Resting well. Breast-feeding. Objective Information: Objective Information: T PRBPSpO2 Value36.60203322/7298% Date/Time02/07 4:148 4:148 4:148 4:148 4:14 Range(36.6C [...] Last Updated: 07-Feb-2021 07:11 by Rj Hatch) [facility] Discharge Planning Ssmj5yo 0 02-07-2021 Discharge Planning Note2 Discharge Planning: Anticipated Discharge Lxof39-Jmj-6611 Discharge Planning Date and Time: 02/07/21 1033 According to plan, patient discharged home with and infant Discharge instructions printed and reviewed. Teaching provided on new medications, self-care, signs and symptoms to report, and follow-up appointments. Patient verbalized understanding and denies any questions at time of discharge. Patient instructed to call provider with any additional questions after discharge. Signature: YOLANDA Quinnaccount general manager: Discharge Planning Assessment [id number]-Ier-3544 Nursing Checklist: Lines/Cathetersremoved/a ppropriate for next level of care Discharge Med Rec Reconciled with Mk Patient has Prescriptionsyes Transportation for Discharge Confirmedyes Follow up Reviewedyes Discharge Instructions Reviewed WithPatient, Significant Other Discharge Instructions Outcomeverbalize recall/understanding Discharge Instructions Review Completed with Patient/Family (diet, activity, pt instructions)yes Discharge Documentation: Discharge/Transfer Date/Uamt45-Xya-2254 10:33 Discharge Modeambulatory Discharged Accompanied Byspouse Transportation Methodprivate car Final DispositionHome Electronic Signatures: Corine Ortega (RN) (Signed 07-Feb-2021 11:25) Authored: Discharge Planning, Assessment, Nursing Checklist, Discharge Documentation Last Updated: 07-Feb-2021 11:25 by Corine Ortega (RN) [facility] Discharge Bvsdpyv2vr 021 Discharge Profile2 Discharge Orders: Anticipated Discharge Date: Anticipated Discharge Njdk57-Lyb-9369 Problem List: Additional Dx: Status post delivery: [...] to nearest emergency room. *Information obtained from [facility]: Save Your Life: Get Care for These POST- Warning Signs On Behalf on the [facility] Maternity Staff, Congratulations on your . [...] us a call. Also, please join our [facility] Support Group which meets the wednesday of every month at 10 am in the OB unit. No need to register. If you have any questions please call us at [phone]. Again, Congratulations! Warmest Regards, [facility] Maternity Staff Electronic Signatures: Rj Hatch) (Signed 07-Feb-2021 07:12) Authored: Discharge Orders, , Hospital Course (Home Care/Gold Form), Provider FINAL REVIEW of Orders, Gold Form - [employer] Summary Corine Ortega (RN) (Signed 07-Feb-2021 08:58) Authored: Other Clinician Instructions Last Updated: 07-Feb-2021 08:58 by Corine Ortega (RN) [facility] Order Reconciliationon 02-07 Order Reconciliation Page 1 [...] required Benzocaine 20% - Menthol 0.5% Topical [place] (DERMOPLAST)DOSE = 1 application(s) Topical 4 Times [...] breakthrough painClinician Notes: Conditional Order: START AFTER PUBLIC RELATIONS ANALYST is discontinued. 04-Feb-2021 22:36 HYDROmorphone Injectable is [...] 60 m (more content not included)... Normal [facility] CBCon 02-06-2021 Erythrocyte distribution width (RBC) [Ratio] 13.3 % Normal 11.5 - 14.5 [facility] Comment on above: Performed By: #### C BC ####[address] [address] Hematocrit (Bld) [Volume fraction] 29.7 % Low 36.0 - 46.0 [facility] Comment on above: Performed By: #### C BC ####[address] [address] Hemoglobin (Bld) [Mass/Vol] 9.7 g/dL Low 12.0 - 16.0 [facility] Comment on above: Performed By: #### C BC ####[address] [address] MCHC (RBC) [Mass/Vol] 32.5 g/dL Normal 32.0 - 36.0 [facility] Comment on above: Performed By: #### C BC ####[address] [address] MCV (RBC) [Entitic vol] 89 fL Normal 80 - 100 [facility] Comment on above: Performed By: #### C BC ####[address] [address] Platelets (Bld) [#/Vol] 240 10*3/uL Normal 150 - 450 [facility] Comment on above: Performed By: #### C BC ####[address] [address] RBC 3.35 x10E12/L Low 4.00 - 5.20 [facility] Comment on above: Performed By: #### C BC ####[address] [address] WBC (Bld) [#/Vol] 16.3 10*3/uL High 4.4 - 11.3 [facility] Comment on above: Performed By: #### C BC ####[address] [address] Daily Progress Note - OB-Pos t-partumon 02-06-2021 Daily Progress Note - KJ-Wpfg-pwxopc Current Stage: Stage: Post- Subjective Data: Post : Ambulate: Yes Flatus: Yes Tolerate Diet: Yes Lochia: Light : POD #1 Resting well. Breast-feeding. Objective Information: Objective Information: T PRBPSpO2 Value36.40598420/6796% Date/Time02/06 4:118/5 4:118/5 4:118/5 4:118/5 4:11 Range(36.5C [...] Note Completion Last Updated: 06-Feb-2021 07:24 by jR Hatch) [facility] - Hematology and Cell countson 02-06-2021 Erythrocyte distribution width (RBC) [Ratio] 13.3 % See Below [employer] Work Phone: Comment on above: Reference Range: 11. 5 - 14.5 Hematocrit (Bld) [Volume fraction] 29.7 % below low threshold See Below [employer] Work Phone: Comment on above: Reference Range: 36. 0 - 46.0 Hemoglobin (Bld) [Mass/Vol] 9.7 g/dL below low threshold See Below [facility] HospitalSustainationDeKal[facility] [employer] Work Phone: Comment on above: Reference Range: 12. 0 - 16.0 MCHC (RBC) [Mass/Vol] 32.5 g/dL See Below W[facility] [employer] Work Phone: Comment on above: Reference Range: 32. 0 - 36.0 MCV (RBC) [Entitic vol] 89 fL 80 - 100 W [facility] [employer] Work Phone: Platelets (Bld) [#/Vol] 240 10*3/uL 150 - 450 [facility] HospitalSustainationDeKal[facility] [employer] Work Phone: RBC (Bld) [#/Vol] 3.35 {x10E12/L} below low threshold See Below [facility] HospitalSustainationDe[facility] [employer] Work Phone: Comment on above: Reference Range: 4.0 0 - 5.20 WBC (Bld) [#/Vol] 16.3 10*3/uL above high threshold 4.4 - 11.3 [facility] HospitalSustainationDeKal[facility] [employer] Work Phone: ABO/RH GROUP TESTon 02-06-20 21 ABO TYPE O Normal [facility] Comment on above: Performed By: #### V ERAB #### [place] [address] RH TYPE Positive Normal [facility] Comment on above: Performed By: #### V ERAB #### [address] [address] CBCon 02-05-2021 Erythrocyte distribution width (RBC) [Ratio] 12.9 % Normal 11.5 - 14.5 [facility] Comment on above: Performed By: #### V ERAB #### [address] [address] Hematocrit (Bld) [Volume fraction] 31.5 % Low 36.0 - 46.0 [facility] Comment on above: Performed By: #### V ERAB #### [address] [address] Hemoglobin (Bld) [Mass/Vol] 10.3 g/dL Low 12.0 - 16.0 [facility] Comment on above: Performed By: #### V ERAB #### [address] [address] MCHC (RBC) [Mass/Vol] 32.8 g/dL Normal 32.0 - 36.0 [facility] Comment on above: Performed By: #### Nikolay ERAB #### [address] [address] MCV (RBC) [Entitic vol] 88 fL Normal 80 - 100 [address] [facility] Comment on above: Performed By: #### V ERAB #### [address] [address] Platelets (Bld) [#/Vol] 259 10*3/uL Normal 150 - 450 [facility] Comment on above: Performed By: #### Nikolay ERAB #### [address] [address] RBC 3.57 x10E12/L Low 4.00 - 5.20 [facility] Comment on above: Performed By: #### V ERAB #### [address] [address] WBC (Bld) [#/Vol] 21.3 10*3/uL High 4.4 - 11.3 [facility] Comment on above: Performed By: #### V ERAB #### [address] [address] Daily Progress Note - OB-Pos t-partumon 02-05-2021 Daily Progress Note - MV-Qqjd-pvqszm Current Stage: Stage: Post- Subjective Data: Post : Ambulate: Yes Lochia: Light : POD #1/2 Resting well. Breast feeding. Objective Information: Objective Information: T PRBPSpO2 [id number]/7198% Date/Time02/05 5: 5:038/4 5:038/4 5:038/4 5:03 Range(36.5C [...] Last Updated: 05-Feb-2021 07:13 by Rj Hatch) [facility] - Hematology and Cell countson 02-05-2021 Erythrocyte distribution width (RBC) [Ratio] 12.9 % See Below [employer] Work Phone: Comment on above: Reference Range: 11. 5 - 14.5 Hematocrit (Bld) [Volume fraction] 31.5 % below low threshold See Below [employer] Work Phone: Comment on above: Reference Range: 36. 0 - 46.0 Hemoglobin (Bld) [Mass/Vol] 10.3 g/dL below low threshold See Below [facility] HospitalSustainationMer[facility] WashingtonVersa Work Phone: Comment on above: Reference Range: 12. 0 - 16.0 MCHC (RBC) [Mass/Vol] 32.8 g/dL See Below Wom enckeenan private hospitalYupiCallMercy Hospital WashingtonVersa Work Phone: Comment on above: Reference Range: 32. 0 - 36.0 MCV (RBC) [Entitic vol] 88 fL 80 - 100 W [facility] [employer] Work Phone: Platelets (Bld) [#/Vol] 259 10*3/uL 150 - 450 [facility] HospitalBTC.sx [facility] [employer] Work Phone: RBC (Bld) [#/Vol] 3.57 {x10E12/L} below low threshold See Below [facility] HospitalSustainationDe[facility] [employer] Work Phone: Comment on above: Reference Range: 4.0 0 - 5.20 WBC (Bld) [#/Vol] 21.3 10*3/uL above high threshold 4.4 - 11.3 [facility] HospitalBTC.sx [facility] [employer] Work Phone: REQUEST-LEUKOREDUCED RED AMPARO LSon 02-05-2021 REQUEST-LEUKOREDUCED RED CELLS ORDER RECD Normal [facility] Comment on above: Performed By: #### O FAN INSTALLER ####[place] [id number] Admission Risk Screen - OBon 02-04-2021 Admission [...] Learning Preferencesverbal instruction Cultural Considerationsnone Developmental Considerationsnone Episcopalian Considerationsnone Learning Assessment (Other Learner): Other learner [...] Spiritual Screen: Are there any cultural, spiritual, temple practices/values/needs that are important for us to knowno Depression Screen: During the past month, have you often been bothered by feeling down, depressed or hopelessno During the past month, have you often had little interest or pleasure in doing thingsno Have you had any thoughts of harming anyone elseno [place] Suicide: Risk Screen Not Applicable/Able to Answerable to be screened In the Past Month: Have you wished you were or could go to sleep and not wake upno In the Past Month: Have you had any actual thoughts of killing yourselfno Lifetime: Have you ever done, started to do, or prepared to do anything to end your lifeno [place] Suicide Risknegative Family Violence Screen: Are you [...] with underlying chronic conditions or reside in marine oil terminal superintendent care facilitiesnone of these conditions Persons with [...] Signatures: Kerry (more content not included)... Normal [facility] CBCon 02-04-2021 Erythrocyte distribution width (RBC) [Ratio] 13.4 % Normal 11.5 - 14.5 [facility] Comment on above: Performed By: #### C BC ####[address] [address] Hematocrit (Bld) [Volume fraction] 35.8 % Low 36.0 - 46.0 [facility] Comment on above: Performed By: #### C BC ####[address] [address] Hemoglobin (Bld) [Mass/Vol] 11.9 g/dL Low 12.0 - 16.0 [facility] Comment on above: Performed By: #### C BC ####[address] [address] MCHC (RBC) [Mass/Vol] 33.2 g/dL Normal 32.0 - 36.0 [facility] Comment on above: Performed By: #### C BC ####[address] [address] MCV (RBC) [Entitic vol] 88 fL Normal 80 - 100 [address] [facility] Comment on above: Performed By: #### C BC ####[address] [address] Platelets (Bld) [#/Vol] 295 10*3/uL Normal 150 - 450 [facility] Comment on above: Performed By: #### C BC ####[address] [address] RBC 4.08 x10E12/L Normal 4.00 - 5.20 [facility] Comment on above: Performed By: #### C BC ####[address] [address] WBC (Bld) [#/Vol] 11.7 10*3/uL High 4.4 - 11.3 [facility] Comment on above: Performed By: #### C BC ####[address] [address] Clinical Event Note-Labor No ryan 02-04-2021 Clinical [...] Last Updated: 04-Feb-2021 20:20 by Rj Hatch) [facility] - Blood bankon ABO group Nom (Bld) O AlwaySupport [facility] mentor hospitalYupiCallDeKalb Regional [facility] Center [employer] Work Phone: Rh immune globulin screen (Bld) [Interp] Positive [facility] HospitalYupiCall [place] [address] [employer] Work Phone: ABO group Nom (Bld) O AlwaySupport [facility] mentor hospitalYupiCallDeKalb Regional Medical Center [employer] Work Phone: Blood group antibody screen Ql Negative [facility]De[facility] [employer] Work Phone: Rh immune globulin screen (Bld) [Interp] Positive [facility] HospitalYupiCall [facility] [employer] Work Phone: Laboratory - Hematology and Cell countson 02-04-2021 Erythrocyte distribution width (RBC) [Ratio] 13.4 % See Below [facility] HospitalSustainationDeKal[facility] [employer] Work Phone: Comment on above: Reference Range: 11. 5 - 14.5 Hematocrit (Bld) [Volume fraction] 35.8 % below low threshold See Below [facility]De[facility] [employer] Work Phone: Comment on above: Reference Range: 36. 0 - 46.0 Hemoglobin (Bld) [Mass/Vol] 11.9 g/dL below low threshold See Below [facility] HospitalSustainationDe[facility] [employer] Work Phone: Comment on above: Reference Range: 12. 0 - 16.0 MCHC (RBC) [Mass/Vol] 33.2 g/dL See Below Wom encareYupiCallDeKalb Regional Medical Center [employer] Work Phone: Comment on above: Reference Range: 32. 0 - 36.0 MCV (RBC) [Entitic vol] 88 fL 80 - 100 W [facility] [employer] Work Phone: Platelets (Bld) [#/Vol] 295 10*3/uL 150 - 450 [facility] HospitalSustainationDeKal[facility] [employer] Work Phone: RBC (Bld) [#/Vol] 4.08 {x10E12/L} See Below Wo [employer] Work Phone: Comment on above: Reference Range: 4.0 0 - 5.20 WBC (Bld) [#/Vol] 11.7 10*3/uL above high threshold 4.4 - 11.3 [facility] [employer] Work Phone: No Panel Informationon 02-04 ORDER RECD [facility] [employer] Work Phone: Order Reconciliationon 02-04 Order Reconciliation [...] all patient (more content not included)... Normal [facility] SYPHILIS SCREENING WITH REFL EXon 02-04-2021 SYPHILIS TOTAL AB Non-Reactive Normal NONREACTIVE [facility] Comment on above: Result Comment: No s ignificant level of Treponema pallidum antibody detected. Repeat testing in 2 to 4 weeks may be considered if early infection or incubating syphilis infection is suspected. Performed By: #### S YPHR #### [facility] [address] [place] [address] Lab Specimen Source Normal [facility] Comment on above: Performed By: #### S YPHR #### [place] [address] [place] [address] T. pallidum IgG+IgM IA Ql (S) Non-Reactive See Below [employer] Work Phone: Comment on above: SOURCE: Reference Ra nge: NONREACTIVENo significant level of Treponema pallidum antibody detected. Repeat testing in 2 to 4 weeks may be considered if early infection or incubating syphilis infection is suspected. TYPE + SCREENon 02-04-2021 ABO TYPE O Normal [facility] Comment on above: Performed By: #### T +S ####[address] [address] RH TYPE Positive Normal [facility] Comment on above: Performed By: #### T +S ####[address] [address] Coronavirus 2019 RNA by PCR, Screening Asymptomticon 02-01-2021 Coronavirus 2019 RNA by PCR, Screening Asymptomtic Not detected Normal See Below [facility] HospitalSustainationDeKal[facility] [employer] Work Phone: Comment on above: SOURCE: Nasal, [...] make patient management decisions.Fact sheet for providers: https://www.fda.gov/media/278386/downloadFact sheet for patients: https://www.fda.gov/media/281298/downloadThis test has received FDA Emergency Use Authorization (EUA) and has been verified by [facility] ([facility]). This test is only authorized for the duration of time that circumstances exist to justify the authorization of the emergency use of in vitro diagnostic tests for the detection of SARS-CoV-2 virus and/or diagnosis of COVID-19 infection under section 564(b)(1) of the Act, 21 U.S.C. 360bbb-3(b)(1), unless the authorization is terminated or revoked sooner. [facility] is certified under CLIA-88 as qualified to perform high complexity testing. Testing is performed in the [facility] laboratories located at [address] [place] [address]. No Panel Informationon 01-28 Normal [facility] [employer] Work Phone: Please click on the link to view the study images Normal [facility] 350 [employer] Work Phone: US AGE FOL-UP PER FETU Son 01-28-2021 US AGE FOL-UP PER FETUS Patient Name: CANDI MOYA STUDY: US AGE FOL-UP PER FETUS 01/28/2021 2:20 pm INDICATION: Growth. COMPARISON: Ultrasound dated 09/24/2020 ACCESSION NUMBER(S): [id number] ORDERING CLINICIAN: RJ HATCH TECHNIQUE: Routine ultrasound [...] evaluation. Electronically signed by: ZENA BALTAZAR MD [facility] GROUP B STREP SCREENon 01-14 GROUP B STREP SCREEN PATIENT: RUBI MOYA LOCATION: [facility] FRANKI#: [id number] : 88 AGE: SEX: F ORDERED BY: RJ HATCH SOURCE: VAGINAL COLLECTED: 01/14/21 08:51 ANTIBIOTICS AT [facility].: RECEIVED : 01/14/21 20:41 SITE: R E S U L T S GROUP B STREP SCREEN FINAL 01/16/21 10:56 NEGATIVE FOR GROUP B BETA STREP. [facility] Comment on above: Performed By: #### G BSCR ####[id number] [address] [id number] Laboratory - Microbiology an d Antimicrobial susceptibilityon 01-14-2021 Bacteria identified Aer cx Nom (Genital specimen) [facility] [place] [address] [address] Work Phone: GLUCOSE BARBARA,3HR PREGNANCYon 11-27-2020 Glucose [Mass/Vol] 113 mg/dL Normal <140 [facility] Comment on above: Performed By: #### G TTP3 #### [address] [address] Glucose [Mass/Vol] 124 mg/dL Normal <155 [facility] Comment on above: Performed By: #### G TTP3 #### [address] [address] Glucose [Mass/Vol] 133 mg/dL Normal <180 [facility] Comment on above: Performed By: #### G TTP3 #### [address] [address] Glucose [Mass/Vol] 74 mg/dL Normal <95 [facility] Comment on above: Performed By: #### G TTP3 #### [address] [address] INTERPRETATION SEE BELOW [facility] Comment on above: Result Comment: Diag nostics with glucose loading dose of 100 g. Reference values from [place] [employer]. Diabetes Care 2015;38(Suppl.1):S8-S16. Performed By: #### G TTP3 #### [facility] [address] [place] [address] GLUCOSE-POCTon 11-27-2020 Glucose [Mass/Vol] 77 mg/dL Normal 74 - 99 [facility] Comment on above: Performed By: #### G YARELIS ####[place] [address] [place] [address] Laboratory - Chemistry and C hemistry - challengeon 11-27-2020 Glucose [Mass/Vol] 77 mg/dL 74 - 99 [facility] [employer] Work Phone: No Panel Informationon 11-27 SEE BELOW [facility] [employer] Work Phone: Comment on above: Diagnostics with glu cose loading dose of 100 g. Reference values from [place] [employer]. Diabetes Care 2015;38(Suppl.1):S8-S16. 124 mg/dL <155 [employer] [employer] Work Phone: 133 mg/dL <180 [employer] [employer] Work Phone: 74 mg/dL <95 [facility]Supportcle[facility] [employer] Work Phone: 113 mg/dL <140 [facility]- [employer] Work Phone: CBC ANEMIA PANEL WITH REFLEX ,PREGNANCYon 11-13-2020 Erythrocyte distribution width (RBC) [Ratio] 12.0 % Normal 11.5 - 14.5 [facility] Comment on above: Performed By: #### V ERAB #### [facility] [address] [place] [address] Hematocrit (Bld) [Volume fraction] 37.5 % Normal 36.0 - 46.0 [facility] Comment on above: Performed By: #### V ERAB #### [facility] [address] [place] [address] Hemoglobin (Bld) [Mass/Vol] 12.6 g/dL Normal 12.0 - 16.0 [facility] Comment on above: Performed By: #### V ERAB #### [address] [address] MCHC (RBC) [Mass/Vol] 33.6 g/dL Normal 32.0 - 36.0 [facility] Comment on above: Performed By: #### V ERAB #### [address] [address] MCV (RBC) [Entitic vol] 95 fL Normal 80 - 100 [address] [facility] Comment on above: Performed By: #### V ERAB #### [place] [address] Platelets (Bld) [#/Vol] 287 10*3/uL Normal 150 - 450 [facility] Comment on above: Performed By: #### V ERAB #### [place] [address] RBC 3.95 x10E12/L Low 4.00 - 5.20 [facility] Comment on above: Performed By: #### Nikolay ERAB #### [place] [address] REFLEX ADDED, ANEMIA PANEL NONE Normal [facility] Comment on above: Performed By: #### Nikolay ERAB #### [place] [id number] WBC (Bld) [#/Vol] 11.8 10*3/uL High 4.4 - 11.3 [facility] Comment on above: Performed By: #### V ERAB #### [place] [address] HCT Canceled Normal [facility] Comment on above: Order Comment: TEST CBC ANEMIA PANEL WITH REFLEX, WAS CANCELLED, 11/13/2020 13:21wrong encounter. Performed By: #### A NEMI ####[place] [id number] [place] [address] HGB Canceled Normal [facility] Comment on above: Order Comment: TEST CBC ANEMIA PANEL WITH REFLEX, WAS CANCELLED, 11/13/2020 13:21wrong encounter. Performed By: #### A NEMI ####[place] [id number] [id number] MCHC Canceled [facility] Comment on above: Order Comment: TEST CBC ANEMIA PANEL WITH REFLEX, WAS CANCELLED, 11/13/2020 13:21wrong encounter. Performed By: #### A NEMI ####[address] [place] [address] MCV Canceled [facility] Comment on above: Order Comment: TEST CBC ANEMIA PANEL WITH REFLEX, WAS CANCELLED, 11/13/2020 13:21wrong encounter. Performed By: #### A NEMI ####[address] [id number] PLT Canceled [facility] Comment on above: Order Comment: TEST CBC ANEMIA PANEL WITH REFLEX, WAS CANCELLED, 11/13/2020 13:21wrong encounter. Performed By: #### A NEMI ####[address] [place] [address] RBC Canceled [facility] Comment on above: Order Comment: TEST CBC ANEMIA PANEL WITH REFLEX, WAS CANCELLED, 11/13/2020 13:21wrong encounter. Performed By: #### A NEMI ####[place] [id number] [place] [address] RDW-CV Canceled [facility] Comment on above: Order Comment: TEST CBC ANEMIA PANEL WITH REFLEX, WAS CANCELLED, 11/13/2020 13:21wrong encounter. Performed By: #### A NEMI ####[place], [place] [id number] [place] [address] REFLEX ADDED, ANEMIA PANEL Canceled Normal [facility] Comment on above: Order Comment: TEST CBC ANEMIA PANEL WITH REFLEX, WAS CANCELLED, 11/13/2020 13:21wrong encounter. Performed By: #### A NEMI ####[id number] [place] [address] WBC Canceled Normal [facility] Comment on above: Order Comment: TEST CBC ANEMIA PANEL WITH REFLEX, WAS CANCELLED, 11/13/2020 13:21wrong encounter. Performed By: #### A NEMI ####[id number] [place] [address] GLUCOSE,1 HR SCREEN, PREGon 11-13-2020 Glucose [Mass/Vol] 173 mg/dL Abnormal <135 [facility] Comment on above: Result Comment: Diag nostic value with glucose loading dose of 50 g. Reference values from [place] [employer]. Diabetes Care 2015;38(Suppl.1):S8-S16 Performed By: #### G LUS1 #### [address] [address] GLUCOSE,1 HR SCREEN, PREG Canceled Normal [facility] Comment on above: Order Comment: TEST GLUCOSE,1 HR SCREEN, PREG WAS CANCELLED, 11/13/2020 13:21 wrong encounter. Result Comment: Diag nostic value with glucose loading dose of 50 g. Reference values from [place] [employer]. Diabetes Care 2015;38(Suppl.1):S8-S16 Performed By: #### G LUS1 #### [address] [address] GLUCOSE-POCTon 11-13-2020 Glucose [Mass/Vol] 70 mg/dL Low 74 - 99 [facility] Comment on above: Performed By: #### G YARELIS ####[address] [address] Glucose, 1 Hour Screen, Preg nancyon 11-13-2020 Glucose 1 Hr post 50 g glucose PO [Mass/Vol] 173 mg/dL Abnormal <135 [employer] Work Phone: Comment on above: Diagnostic value wit h glucose loading dose of 50 g. Reference values from [place] [employer]. Diabetes Care 2015;38(Suppl.1):S8-S16 Laboratory - Chemistry and C hemistry - challengeon 11-13-2020 Glucose [Mass/Vol] 70 mg/dL below low threshold 74 - 99 [facility] Work Phone: Laboratory - Hematology and Cell countson 11-13-2020 Erythrocyte distribution width (RBC) [Ratio] 12.0 % See Below [employer] Work Phone: Comment on above: Reference Range: 11. 5 - 14.5 Hematocrit (Bld) [Volume fraction] 37.5 % See Below [employer] Work Phone: Comment on above: Reference Range: 36. 0 - 46.0 Hemoglobin (Bld) [Mass/Vol] 12.6 g/dL See Below [employer] Work Phone: Comment on above: Reference Range: 12. 0 - 16.0 MCHC (RBC) [Mass/Vol] 33.6 g/dL See Below [facility] [employer] Work Phone: Comment on above: Reference Range: 32. 0 - 36.0 MCV (RBC) [Entitic vol] 95 fL 80 - 100 [facility] Work Phone: Platelets (Bld) [#/Vol] 287 10*3/uL 150 - 450 [employer] Work Phone: RBC (Bld) [#/Vol] 3.95 {x10E12/L} below low threshold See Below [employer] Work Phone: Comment on above: Reference Range: 4.0 0 - 5.20 WBC (Bld) [#/Vol] 11.8 10*3/uL above high threshold 4.4 - 11.3 [facility] [employer] Work Phone: No Panel Informationon 11-13 NONE [facility] Work Phone: US OB COMPLETEon 09-24-2020 US OB COMPLETE Patient Name: CANDI MOYA STUDY: US OB COMPLETE 09/24/2020 9:55 am INDICATION: DATES & ANATOMY EDC: 02/11/21. COMPARISON: None. ACCESSION NUMBER(S): [id number] ORDERING CLINICIAN: RJ HATCH TECHNIQUE: Routine ultrasound [...] Electronically signed by: ZENA BALTAZAR MD Normal [facility] FACTOR V LEIDENon 08-30-2020 FACTOR V LEIDEN HETEROZYGOUS Abnormal NORMAL [facility] Comment on above: Result Comment: . [...] analytical performance characteristics have been determined by [facility]. This test has not been cleared or approved by the FDA; however, the FDA has determined that such approval is not necessary. The [facility] is CAP accredited and certified under the Clinical Laboratory Improvement Amendments of 1988 (CLIA-88) as qualified to perform high complexity testing. Performed By: #### V ERAB #### [address] [address] TYPE + SCREENon 08-08-2020 ABO TYPE O Normal [facility] Comment on above: Order Comment: TEST TYPE + SCREEN WAS CANCELLED, 08/05/2020 11:17 DUPLICATE ORDER. Performed By: #### V ERAB #### [address] [address] HEPATITIS B SURFACE AGon HEP.B SURFACE AG Non-Reactive Normal NONREACTIVE [facility] Comment on above: Result Comment: Biot in interference may cause falsely decreased results. Patients taking a Biotin dose of up to 5 mg/day should refrain from taking Biotin for 24 hours before sample collection. Providers may contact their local laboratory for further information. Performed By: #### V ERAB #### [facility] [address] [place] [address] HEPATITIS C ABon 08-07-2020 HEPATITIS C AB Non-Reactive Normal NONREACTIVE [facility] Comment on above: Result Comment: Resu lts from patients taking biotin supplements or receiving high-dose biotin therapy should be interpreted with caution due to possible interference with this test. Providers may contact their local laboratory for further information. Performed By: #### H CVAB ####[id number] [place] [address] HIV 1/2 ANTIGEN/ANTIBODY SCR EEN WITH REFLEX TO CONFIRMATIONon 08-07-2020 HIV 1/2 AG/AB SCREEN Non-Reactive Normal NONREACTIVE [facility] Comment on above: Result Comment: HIV Ag/Ab screen is performed using the Siemens [employer]ll[employer]arm[employer] HIV Ag/Ab Combo assay which detects the presence of HIV p24 antigen as well as antibodies to HIV-1 (Group M and O) and HIV-2. Performed By: #### V ERAB #### [address] [address] RUBELLA IGG ABon 08-07-2020 RUBELLA IGG AB Positive Normal [facility] Comment on above: Result Comment: INTE [...] assays. Performed By: #### V ERAB #### [address] [address] SYPHILIS SCREENING WITH REFL EXon 08-07-2020 SYPHILIS TOTAL AB Non-Reactive Normal NONREACTIVE [facility] Comment on above: Result Comment: No s ignificant level of Treponema pallidum antibody detected. Repeat testing in 2 to 4 weeks may be considered if early infection or incubating syphilis infection is suspected. Performed By: #### S YPHR ####[id number] [place] [address] GC + CHLAMYDIA BY AMPLIFIED DETECTIONon 08-06-2020 CHLAMYDIA TRACH.,AMPLIFIED Negative Normal Negative [facility] Comment on above: Performed By: #### G CCHA #### [facility] [address] [place] [address] N.GONORRHEA,AMPLIFIED Negative Normal Negative [facility] Comment on above: Performed By: #### G CCHA #### [facility] [address] [place] [address] CBC ANEMIA PANEL WITH REFLEX ,PREGNANCYon 08-05-2020 Erythrocyte distribution width (RBC) [Ratio] 12.7 % Normal 11.5 - 14.5 [facility] Comment on above: Performed By: #### A NEMI #### [address] [address] Hematocrit (Bld) [Volume fraction] 40.4 % Normal 36.0 - 46.0 [facility] Comment on above: Performed By: #### A NEMI #### [address] [address] Hemoglobin (Bld) [Mass/Vol] 13.8 g/dL Normal 12.0 - 16.0 [facility] Comment on above: Performed By: #### A NEMI #### [address] [address] MCHC (RBC) [Mass/Vol] 34.3 g/dL Normal 32.0 - 36.0 [facility] Comment on above: Performed By: #### A NEMI #### [address] [address] MCV (RBC) [Entitic vol] 94 fL Normal 80 - 100 [facility] Comment on above: Performed By: #### A NEMI #### [address] [address] Platelets (Bld) [#/Vol] 285 10*3/uL Normal 150 - 450 [facility] Comment on above: Performed By: #### A NEMI #### [address] [address] RBC 4.27 x10E12/L Normal 4.00 - 5.20 [facility] Comment on above: Performed By: #### A NEMI #### [address] [address] REFLEX ADDED, ANEMIA PANEL NONE Normal [facility] Comment on above: Performed By: #### A NEMI #### [address] [address] WBC (Bld) [#/Vol] 11.2 10*3/uL Normal 4.4 - 11.3 [facility] Comment on above: Performed By: #### A NEMI #### [address] [address] Cult, Urineon 08-05-2020 Bacteria identified Cx Nom (U) PATIENT: CANDI MOYA LOCATION: [facility]#: [id number] : 88 AGE: SEX: F ORDERED BY: ADAN HATCH: URINE COLLECTED: 08/05/20 08:48ANTIBIOTICS AT SHARON.: RECEIVED : 08/05/20 17:46SITE: Clean Catch/Voided R E S U L T S URINE CULTURE,BACTERIAL FINAL 08/06/20 11:12 NO SIGNIFICANT GROWTH. [facility] [employer] Work Phone: GC + CHLAMYDIA BY AMPLIFIED DETECTIONon 08-05-2020 Lab Specimen Source Urine Normal [facility] Comment on above: Performed By: #### [facility] #### [facility] [address] [place] [address] GC + Chlamydia By Amplified Detectionon 08-05-2020 C. trachomatis rRNA PEMA+probe Ql (Unsp spec) Negative Negative [place] [address] [employer] Work Phone: N. gonorrhoeae rRNA PEMA+probe Ql (Unsp spec) Negative Negative [place] [address] [address] Work Phone: Comment on above: SOURCE: Urine HIV 1/2 ANTIGEN/ANTIBODY SCR EEN WITH REFLEX TO CONFIRMATIONon 08-05-2020 HIV 1+2 Ab+HIV1 p24 Ag IA Ql NONREACTIVE See Below [facility] HospitalSustainationDe[facility] [employer] Work Phone: Comment on above: SOURCE: Reference Ra nge: NONREACTIVE HIV Ag/Ab screen is performed using the Siemens BaccaratllFarmstr HIV Ag/Ab Combo assay which detects the presence of HIV p24 antigen as well as antibodies to HIV-1 (Group M and O) and HIV-2. Hematologyon 08-05-2020 ABO group Nom (Bld) O AlwaySupport [facility] hospitalYupiCallDeKal[facility] [employer] Work Phone: Blood group antibody screen Ql Negative [facility] HospitalYupiCallDe[facility] [employer] Work Phone: Hematocrit (Bld) [Volume fraction] 40.4 % See Below [facility] HospitalSustainationDe[facility] [employer] Work Phone: Comment on above: Reference Range: 36. 0 - 46.0 Hemoglobin (Bld) [Mass/Vol] 13.8 g/dL See Below [facility] HospitalSustainationDe[facility] [employer] Work Phone: Comment on above: Reference Range: 12. 0 - 16.0 MCV (RBC) [Entitic vol] 94 fL 80 - 100 [facility] [employer] Work Phone: Platelets (Bld) [#/Vol] 285 {x10E9/L} 150 - 450 [facility] HospitalYupiCallDe[facility] [employer] Work Phone: RBC (Bld) [#/Vol] 4.27 {x10E12/L} See Below Wo mencleveland clinic mentor hospitalYupiCallDeKal[facility] [employer] Work Phone: Comment on above: Reference Range: 4.0 0 - 5.20 Rh immune globulin screen (Bld) [Interp] Positive [facility] [employer] Work Phone: WBC (Bld) [#/Vol] 11.2 {x10E9/L} 4.4 - 11.3 [facility] [place] [address] [employer] Work Phone: Hepatitis B Surface Antigeno n 08-05-2020 Hepatitis B Surface Antigen NONREACTIVE See Below [facility] [place] [address] [employer] Work Phone: Comment on above: SOURCE: Reference [...] Cyto stain.thin prep Doc (Cvx/Vag) ADDENDUMAccession #: [id number] Date of Procedure: 08/05/2020 Pathologist: YUE LOBOate [...] performed by the Molecular Diagnostics Laboratory at [facility]. This specimen has been analyzed by the IMANINPrep Imaging System ([employer]an automated imaging and review system, which assists the laboratory inevaluating cells on ThinPrep Pap tests. Following automated imaging, selectedfields from every slide were reviewed by a senior paralegal and/or pathologist.Electronical ly Signed Out By NIKOLE [...] was verified by the [facility] DiagnosticLabor[facility] at [facility]. The lab iscertified under the Clinical Laboratory Amendments of 1988 (CLIA 88) asqualified to perform high complexity clinical laboratory testing. Electronically Signed Out By ARELY HUMMEL MD/Howard the signature on this report, the individual or group listed as making theFinal Interpretation/Diagnosis certifies that they have reviewed this case. [facility] [id number] [place] [address]-A [employer] Work Phone: Otheron 08-05-2020 Erythrocyte distribution width (RBC) [Ratio] 12.7 % See Below [facility] HospitalTalento al Aula [employer] Work Phone: Comment on above: Reference Range: 11. 5 - 14.5 MCHC (RBC) [Mass/Vol] 34.3 g/dL See Below Wom [facility] hospitalYupiCall [employer] Work Phone: Comment on above: Reference Range: 32. 0 - 36.0 NONE [facility] [employer] Work Phone: Rubella IgG Antibodyon 08-05 Rubella virus IgG IA Ql Positive W [facility] [employer] Work Phone: Comment on above: SOURCE: INTERPRETATI [...] REFL EXon 08-05-2020 Lab Specimen Source Normal [facility] Comment on above: Performed By: #### S [facility] ####[id number] [place] [address] Performed By: #### H CVAB ####[id number] [place] [address] Performed By: #### V ERAB #### [address] [address] T. pallidum IgG+IgM IA Ql (S) NONREACTIVE See Below [address] Work Phone: Comment on above: SOURCE: Reference Ra nge: NONREACTIVENo significant level of Treponema pallidum antibody detected. Repeat testing in 2 to 4 weeks may be considered if early infection or incubating syphilis infection is suspected. TYPE + SCREENon 08-05-2020 RH TYPE Positive Normal [facility] Comment on above: Order Comment: TEST TYPE + SCREEN WAS CANCELLED, 08/05/2020 11:17 DUPLICATE ORDER. Performed By: #### V ERAB #### [address] [address] URINE CULTURE,BACTERIALon URINE CULTURE,BACTERIAL PATIENT: CANDI MOYA LOCATION: [facility]#: [id number] : 88 AGE: SEX: F ORDERED BY: RJ HATCH SOURCE: URINE COLLECTED: 08/05/20 08:48 ANTIBIOTICS AT SHARON.: RECEIVED : 08/05/20 17:46 SITE: Clean Catch/Voided R E S U L T S URINE CULTURE,BACTERIAL FINAL 08/06/20 11:12 NO SIGNIFICANT GROWTH. Normal [facility] Comment on above: Performed By: #### V ERAB #### [address] [address] [email or web address] US BREAST LTD LTon 04-13 [email or web address] US BREAST LTD LT * * *Final Report* * * DATE OF EXAM: Apr 13 2019 12:54PM LDW [id number] - [email or web address] US BREAST LTD LT / PROCEDURE REASON: Breast lump on left side at 2 o'clock position * * * * Physician Interpretation * * * * #[id number] - [facility] US BREAST LTD LT LIMITED ULTRASOUND OF [...] clinical followup are recommended. Neyda baron/woody:04/13/2019 18:10:21 Field Service Engineer(s): Brittaney Sanabria RDMS, [facility] Ultrasound BI-RADS: 2 Benign Gravity Meter Observer: Woody Transcribe Date/Time: Apr 13 2019 12:17P Dictated by : NEYDA WHITTEN MD This examination was interpreted and the report reviewed and electronically signed by: NEYDA WHITTEN MD on Apr 13 2019 6:10PM EST Normal [facility] HPV High Riskon 04-12-2019 HPV High Risk SEE BELOW Normal [facility] Comment on above: Result Comment: HPV HighRisk Type 16 SEE BELOW Negative for HPV DNA high risk type 16 by PCR. HPV HighRisk Type 18 SEE BELOW Negative for HPV DNA high risk type 18 by PCR. HPV HighRisk Other SEE BELOW Negative for HPV DNA high risk types: 31,33,35,39,45,51,52,56,58,59,66,68 by PCR. This test was developed and its performance characteristics determined by [facility]'s Maury JCristian [facility] Pathology and Laboratory Medicine [place] ([facility]). It has not been cleared or approved by the FDA. [facility] is regulated under CLIA as qualified to perform high-complexity testing. This test is used for clinical purposes. It should not be regarded as investigational or for research. Performing Laboratory: [facility] [employer] [address] [place] [address] Performed By: #### H PVRX #### [place] [address] HPV High Riskon 04-10-2019 Cytology Normal [facility] Comment on above: Performed By: #### H PVRX #### [facility] [address] [place] [address] Chlam/GC-DNA Amplifiedon Chlam/GC-DNA Amplified Test performed at [facility] See scanned results Normal [facility] Comment on above: Performed By: #### C TGCA #### [place] [address] Cult and Smr Aerobicon 04-05 Cult and Smr Aerobic Test performed at A [facility] Few Normal vaginal clementina. Many Gram positive Organisms. Few Mononuclear cells Few Squamous epithelial cells Normal [facility] Comment on above: Performed By: #### C _AER #### [place] [address] Pap,Cyto Gynon 04-05-2019 Pap,Cyto Transporter Radiology Test performed at [place] [address] NAME: CANDI MOYA REQUESTING: RANDY BOTELLO CNP SPECIMEN: TP CX REFLEX TO HPV ASCUS/RUBEN Relevant History: LMP: 03/25/2019 REPORT AMENDED FOR: ANCILLARY TESTING Negative for HPV DNA high risk type 16 by PCR. Please see additional report from [facility]. Negative for HPV DNA high risk type 18 by PCR. Please see additional report from [facility]. Negative for HPV DNA high risk types: 31, 33, 35, 39, 45, 51, 52, 56, 58, 59, 66, 68 by PCR. Please see additional report from [facility]. Electronically signed: 04/13/2019 Screened by: VIRIDIANA JULIEN (ASCP) Signed Out by: VIRIDIANA JULIEN (ASCP) SPECIMEN ADEQUACY SATISFACTORY FOR EVALUATION. ENDOCERVICAL/TRANSFORMAT ION ZONE COMPONENTS PRESENT. GENERAL CATEGORIZATION EPITHELIAL CELL ABNORMALITY. INTERPRETATION/RESULT ATYPICAL SQUAMOUS CELLS OF UNDETERMINED SIGNIFICANCE. ANCILLARY TESTING The specimen was sent to [facility] for HPV typing. Results will be [...] 13, 2019 Page 1 of 1 Normal [facility] Comment on above: Performed By: #### C YTOP #### [place] [id number] Vital Signs Date Time Vital Sign Value Performing Clinician Faci lity 04-10-2025 09:42-0400 Body height 162.56 cm No Primary Care Physician [facility] 04-10-2025 09:41-0400 Body mass index (BMI) [Ratio] 35.9 kg/m2 No Primary Care Physician [facility] 04-10-2025 09:41-0400 Body weight 95.05 kg No Primary Care Physician [facility] 04-10-2025 09:41-0400 Diastolic blood pressure 70 mm[Hg] No Primary Care Physician [facility] 04-10-2025 09:41-0400 Systolic blood pressure 106 mm[Hg] No Primary Care Physician [facility] 04-03-2025 12:57-0400 Body height 162.[address] Roro Troy MD Work Phone: [facility] 04-03-2025 12:57-0400 Body mass index (BMI) [Ratio] 36.3 kg/m2 Dr. Roro Troy MD Work Phone: [facility] 04-03-2025 12:57-0400 Body weight 95.[address] Roro Troy MD Work Phone: [facility] 04-03-2025 12:57-0400 Diastolic blood pressure 70 mm[Hg] Dr. Roro Troy MD Work Phone: [facility] 04-03-2025 12:57-0400 Systolic blood pressure 104 mm[Hg] Dr. Roro Troy MD Work Phone: [facility] 03-21-2025 10:21-0400 Body height 162.56 cm No Primary Care Physician [facility] 03-21-2025 10:19-0400 Body mass index (BMI) [Ratio] 35.9 kg/m2 No Primary Care Physician [facility] 03-21-2025 10:19-0400 Body weight 95.02 kg No Primary Care Physician [facility] 03-21-2025 10:19-0400 Diastolic blood pressure 71 mm[Hg] No Primary Care Physician [facility] 03-21-2025 10:19-0400 Systolic blood pressure 106 mm[Hg] No Primary Care Physician [facility] 03-07-2025 14:18-0400 Body height 162.56 cm No Primary Care Physician [facility] 03-07-2025 14:14-0400 Body mass index (BMI) [Ratio] 35.7 kg/m2 No Primary Care Physician [facility] 03-07-2025 14:14-0400 Body weight 94.51 kg No Primary Care Physician [facility] 03-07-2025 14:14-0400 Diastolic blood pressure 70 mm[Hg] No Primary Care Physician [facility] 03-07-2025 14:14-0400 Systolic blood pressure 108 mm[Hg] No Primary Care Physician [facility] 02-23-2025 14:20-0400 Body height 162.56 cm No Primary Care Physician [facility] 02-23-2025 14:20-0400 Body mass index (BMI) [Ratio] 35.9 kg/m2 No Primary Care Physician [facility] 02-23-2025 14:20-0400 Body weight 94.82 kg No Primary Care Physician [facility] 02-23-2025 14:20-0400 Diastolic blood pressure 69 mm[Hg] No Primary Care Physician [facility] 02-23-2025 14:20-0400 Systolic blood pressure 101 mm[Hg] No Primary Care Physician [facility] 02-06-2025 10:45-0400 Body height 162.56 cm No Primary Care Physician [facility] 02-06-2025 10:45-0400 Body mass index (BMI) [Ratio] 36.8 kg/m2 No Primary Care Physician [facility] 02-06-2025 10:45-0400 Body weight 97.52 kg No Primary Care Physician [facility] 02-06-2025 10:42-0400 Body temperature 97.8 [degF] No Primary Care Physician [facility] 02-06-2025 10:42-0400 Respiratory rate 16 /min No Primary Care Physician [facility] 02-06-2025 10:41-0400 Diastolic blood pressure 75 mm[Hg] No Primary Care Physician [facility] 02-06-2025 10:41-0400 Heart rate 103 /min No Primary Care Physician [facility] 02-06-2025 10:41-0400 Systolic blood pressure 144 mm[Hg] No Primary Care Physician [facility] 02-06-2025 09:59-0400 Body height 162.56 cm No Primary Care Physician [facility] 02-06-2025 09:59-0400 Body mass index (BMI) [Ratio] 36.2 kg/m2 No Primary Care Physician [facility] 02-06-2025 09:59-0400 Body weight 95.73 kg No Primary Care Physician [facility] 02-06-2025 09:59-0400 Diastolic blood pressure 69 mm[Hg] No Primary Care Physician [facility] 02-06-2025 09:59-0400 Systolic blood pressure 119 mm[Hg] No Primary Care Physician [facility] 01-16-2025 13:51-0400 Body height 162.56 cm No Primary Care Physician [facility] 01-16-2025 13:43-0400 Body mass index (BMI) [Ratio] 35.9 kg/m2 No Primary Care Physician [facility] 01-16-2025 13:43-0400 Body weight 95.02 kg No Primary Care Physician [facility] 01-16-2025 13:43-0400 Diastolic blood pressure 60 mm[Hg] No Primary Care Physician [facility] 01-16-2025 13:43-0400 Systolic blood pressure 98 mm[Hg] No Primary Care Physician [facility] 12-19-2024 10:52-0400 Body height 162.56 cm No Primary Care Physician [facility] 12-19-2024 10:52-0400 Body mass index (BMI) [Ratio] 35.6 kg/m2 No Primary Care Physician [facility] 12-19-2024 10:52-0400 Body weight 94.12 kg No Primary Care Physician [facility] 12-19-2024 10:52-0400 Diastolic blood pressure 70 mm[Hg] No Primary Care Physician [facility] 12-19-2024 10:52-0400 Systolic blood pressure 104 mm[Hg] No Primary Care Physician [facility] 11-22-2024 15:00-0400 Body height 162.56 cm No Primary Care Physician [facility] 11-22-2024 15:00-0400 Body mass index (BMI) [Ratio] 35.6 kg/m2 No Primary Care Physician [facility] 11-22-2024 15:00-0400 Body weight 94.12 kg No Primary Care Physician [facility] 11-22-2024 15:00-0400 Diastolic blood pressure 75 mm[Hg] No Primary Care Physician [facility] 11-22-2024 15:00-0400 Systolic blood pressure 113 mm[Hg] No Primary Care Physician [facility] 10-24-2024 15:27-0400 Body mass index (BMI) [Ratio] 35.4 kg/m2 No Primary Care Physician [facility] 10-24-2024 15:27-0400 Body weight 93.55 kg No Primary Care Physician [facility] 10-24-2024 15:27-0400 Diastolic blood pressure 76 mm[Hg] No Primary Care Physician [facility] 10-24-2024 15:27-0400 Systolic blood pressure 110 mm[Hg] No Primary Care Physician [facility] 09-22-2024 14:25-0400 Body height 162.56 cm No Primary Care Physician [facility] 09-22-2024 14:25-0400 Body mass index (BMI) [Ratio] 35.5 kg/m2 No Primary Care Physician [facility] 09-22-2024 14:25-0400 Body weight 94 kg No Primary Care Physician [facility] 09-22-2024 14:25-0400 Diastolic blood pressure 79 mm[Hg] No Primary Care Physician [facility] 09-22-2024 14:25-0400 Systolic blood pressure 126 mm[Hg] No Primary Care Physician [facility] 08-21-2023 12:24-0500 Body temperature 98.2 [degF] No Primary Care Physician [facility] 08-21-2023 12:24-0500 Diastolic blood pressure 71 mm[Hg] No Primary Care Physician [facility] 08-21-2023 12:24-0500 Heart rate 100 /min No Primary Care Physician [facility] 08-21-2023 12:24-0500 Respiratory rate 14 /min No Primary Care Physician [facility] 08-21-2023 12:24-0500 SaO2% (BldA) [Mass fraction] 99 % No Primary Care Physician [facility] 08-21-2023 12:24-0500 Systolic blood pressure 116 mm[Hg] No Primary Care Physician [facility] 08-21-2023 04:12-0500 Body height 162.56 cm No Primary Care Physician [facility] 08-21-2023 04:12-0500 Body mass index (BMI) [Ratio] 36.3 kg/m2 No Primary Care Physician [facility] 08-21-2023 04:12-0500 Body weight 96.2 kg No Primary Care Physician [facility] 08-19-2023 13:09-0500 Diastolic blood pressure 77 mm[Hg] No Primary Care Physician [facility] 08-19-2023 13:09-0500 Systolic blood pressure 126 mm[Hg] No Primary Care Physician [facility] 08-19-2023 12:57-0500 Body mass index (BMI) [Ratio] 34.3 kg/m2 No Primary Care Physician [facility] 08-19-2023 12:57-0500 Body weight 90.71 kg No Primary Care Physician [facility] 08-13-2023 16:16-0500 Body mass index (BMI) [Ratio] 36.1 kg/m2 No Primary Care Physician [facility] 08-13-2023 16:16-0500 Body weight 95.48 kg No Primary Care Physician [facility] 08-13-2023 16:16-0500 Diastolic blood pressure 70 mm[Hg] No Primary Care Physician [facility] 08-13-2023 16:16-0500 Systolic blood pressure 108 mm[Hg] No Primary Care Physician [facility] 08-06-2023 16:01-0500 Body mass index (BMI) [Ratio] 36.1 kg/m2 No Primary Care Physician [facility] 08-06-2023 16:01-0500 Body weight 95.36 kg No Primary Care Physician [facility] 08-06-2023 16:01-0500 Diastolic blood pressure 69 mm[Hg] No Primary Care Physician [facility] 08-06-2023 16:01-0500 Systolic blood pressure 116 mm[Hg] No Primary Care Physician [facility] 07-30-2023 15:13-0500 Body mass index (BMI) [Ratio] 35.9 kg/m2 No Primary Care Physician [facility] 07-30-2023 15:13-0500 Body weight 95.02 kg No Primary Care Physician [facility] 07-30-2023 15:13-0500 Diastolic blood pressure 86 mm[Hg] No Primary Care Physician [facility] 07-30-2023 15:13-0500 Systolic blood pressure 123 mm[Hg] No Primary Care Physician [facility] 07-16-2023 15:20-0500 Body mass index (BMI) [Ratio] 35.9 kg/m2 No Primary Care Physician [facility] 07-16-2023 15:20-0500 Body weight 94.85 kg No Primary Care Physician [facility] 07-16-2023 15:20-0500 Diastolic blood pressure 74 mm[Hg] No Primary Care Physician [facility] 07-16-2023 15:20-0500 Systolic blood pressure 113 mm[Hg] No Primary Care Physician [facility] 07-02-2023 16:12-0500 Body mass index (BMI) [Ratio] 35.4 kg/m2 No Primary Care Physician [facility] 07-02-2023 16:12-0500 Body weight 93.61 kg No Primary Care Physician [facility] 07-02-2023 16:12-0500 Diastolic blood pressure 73 mm[Hg] No Primary Care Physician [facility] 07-02-2023 16:12-0500 Systolic blood pressure 106 mm[Hg] No Primary Care Physician [facility] 06-14-2023 15:37-0500 Body mass index (BMI) [Ratio] 35.2 kg/m2 No Primary Care Physician [facility] 06-14-2023 15:37-0500 Body weight 93.04 kg No Primary Care Physician [facility] 06-14-2023 15:37-0500 Diastolic blood pressure 67 mm[Hg] No Primary Care Physician [facility] 06-14-2023 15:37-0500 Systolic blood pressure 119 mm[Hg] No Primary Care Physician [facility] 06-04-2023 11:20-0500 Body height 162.56 cm No Primary Care Physician [facility] 06-04-2023 11:13-0500 Body mass index (BMI) [Ratio] 34.8 kg/m2 No Primary Care Physician [facility] 06-04-2023 11:13-0500 Body weight 92.07 kg No Primary Care Physician [facility] 06-04-2023 11:13-0500 Diastolic blood pressure 68 mm[Hg] No Primary Care Physician [facility] 06-04-2023 11:13-0500 Systolic blood pressure 114 mm[Hg] No Primary Care Physician [facility] 05-18-2023 14:32-0500 Body mass index (BMI) [Ratio] 34.8 kg/m2 No Primary Care Physician [facility] 05-18-2023 14:32-0500 Body weight 92.13 kg No Primary Care Physician [facility] 05-18-2023 14:32-0500 Diastolic blood pressure 74 mm[Hg] No Primary Care Physician [facility] 05-18-2023 14:32-0500 Systolic blood pressure 116 mm[Hg] No Primary Care Physician [facility] 04-13-2023 10:49-0400 Body weight 89.81 kg No Primary Care Physician [facility] 04-13-2023 10:49-0400 Diastolic blood pressure 70 mm[Hg] No Primary Care Physician [facility] 04-13-2023 10:49-0400 Systolic blood pressure 110 mm[Hg] No Primary Care Physician [facility] 04-13-2023 10:09-0400 Body height 162.56 cm No Primary Care Physician [facility] 03-17-2023 12:15-0400 Body mass index (BMI) [Ratio] 34 kg/m2 No Primary Care Physician [facility] 03-17-2023 11:29-0400 Body mass index (BMI) [Ratio] 33.7 kg/m2 No Primary Care Physician [facility] 03-17-2023 11:29-0400 Body weight 89.07 kg No Primary Care Physician [facility] 03-17-2023 11:29-0400 Diastolic blood pressure 68 mm[Hg] No Primary Care Physician [facility] 03-17-2023 11:29-0400 Systolic blood pressure 108 mm[Hg] No Primary Care Physician [facility] 02-19-2023 10:56-0400 Body height 162.56 cm No Primary Care Physician [facility] 02-19-2023 10:51-0400 Body mass index (BMI) [Ratio] 33.5 kg/m2 No Primary Care Physician [facility] 02-19-2023 10:51-0400 Body weight 88.62 kg No Primary Care Physician [facility] 02-19-2023 10:51-0400 Diastolic blood pressure 83 mm[Hg] No Primary Care Physician [facility] 02-19-2023 10:51-0400 Systolic blood pressure 121 mm[Hg] No Primary Care Physician [facility] 01-21-2023 13:03-0400 Body mass index (BMI) [Ratio] 33.3 kg/m2 No Primary Care Physician [facility] 01-21-2023 13:03-0400 Body weight 87.99 kg No Primary Care Physician [facility] 01-21-2023 13:03-0400 Diastolic blood pressure 80 mm[Hg] No Primary Care Physician [facility] 01-21-2023 13:03-0400 Systolic blood pressure 116 mm[Hg] No Primary Care Physician [facility] 08-20-2021 13:58-0500 Body height 162.56 cm Randy Botello Work Phone: [employer] Work Phone: 08-20-2021 13:58-0500 Body mass index (BMI) [Ratio] 32.62 kg/m2 Randy Botello Work Phone: [email or web address] Work Phone: 08-20-2021 13:58-0500 Body surface area Derived from formula 1.91 m2 Randy Botello Work Phone: [place] [address] Work Phone: 08-20-2021 13:58-0500 Body temperature 97.8 [degF] Randy Botello Work Phone: [place] [address] Work Phone: 08-20-2021 13:58-0500 Body weight 86.2 kg Randy Botello Work Phone: [place] [address] Work Phone: 08-20-2021 13:58-0500 Diastolic blood pressure 68 mm[Hg] Randy Botello Work Phone: [place] [address] [employer] Work Phone: 08-20-2021 13:58-0500 Systolic blood pressure 114 mm[Hg] Randy Botello Work Phone: [place] [address] Work Phone: 03-04-2021 13:37-0400 Body height 162.56 cm Randy Botello Work Phone: [place] [address] Work Phone: 03-04-2021 13:37-0400 Body mass index (BMI) [Ratio] 32.2 kg/m2 Randy Botello Work Phone: [place] [address] Work Phone: 03-04-2021 13:37-0400 Body surface area Derived from formula 1.9 m2 Randy Botello Work Phone: [place] [address] Work Phone: 03-04-2021 13:37-0400 Body temperature 98.2 [degF] Randy Botello Work Phone: [place] [address] Work Phone: 03-04-2021 13:37-0400 Body weight 85.1 kg Randy Maryjo Nerissa Work Phone: [place] [address] Work Phone: 03-04-2021 13:37-0400 Diastolic blood pressure 66 mm[Hg] Randy Maryjo Nerissa Work Phone: [place] [address] Work Phone: 03-04-2021 13:37-0400 Systolic blood pressure 110 mm[Hg] Randy Maryjo Nerissa Work Phone: [place] [address] Work Phone: 02-18-2021 11:08-0400 Body height 162.56 cm Randy Maryjo Nerissa Work Phone: [place] [address] Work Phone: 02-18-2021 11:08-0400 Body mass index (BMI) [Ratio] 31.96 kg/m2 Randy Maryjo Nerissa Work Phone: [place] [address] Work Phone: 02-18-2021 11:08-0400 Body surface area Derived from formula 1.9 m2 Randy Maryjo Nerissa Work Phone: [place] [address] Work Phone: 02-18-2021 11:08-0400 Body temperature 97.3 [degF] Randy Maryjo Nerissa Work Phone: [place] [address] Work Phone: 02-18-2021 11:08-0400 Body weight 84.46 kg Randy Maryjo Nerissa Work Phone: [place] [address] Work Phone: 02-18-2021 11:08-0400 Diastolic blood pressure 68 mm[Hg] Randy M Nerissa Work Phone: [place] [address] [employer] Work Phone: 02-18-2021 11:08-0400 Systolic blood pressure 108 mm[Hg] Randy Botello Work Phone: [place] [address] Work Phone: 02-07-2021 12:29-0400 Body temperature 98.24 [degF] Randy Nerissa Other Phone: [facility] 02-07-2021 12:29-0400 Diastolic blood pressure 82 mm[Hg] Randy Nerissa Other Phone: [facility] 02-07-2021 12:29-0400 Heart rate 93 /min Randy Nerissa Other Phone: [facility] 02-07-2021 12:29-0400 Respiratory rate 16 /min Randy Duffyel Other Phone: [facility] 02-07-2021 12:29-0400 SaO2% (BldA) [Mass fraction] 97 % Randy Nerissa Other Phone: [facility] 02-07-2021 12:29-0400 Systolic blood pressure 118 mm[Hg] Randy Nerissa Other Phone: [facility] 01-29-2021 08:39-0400 Body height 162.56 cm Randy Botello Work Phone: [place] [address] [employer] Work Phone: 01-29-2021 08:39-0400 Body mass index (BMI) [Ratio] 34.44 kg/m2 Randy Maryjo Nerissa Work Phone: [place] [address] [employer] Work Phone: 01-29-2021 08:39-0400 Body surface area Derived from formula 1.96 m2 Randy Maryjo Nerissa Work Phone: [place] [address] Work Phone: 01-29-2021 08:39-0400 Body temperature 96.9 [degF] Randy Botello Work Phone: [place] [address] Work Phone: 01-29-2021 08:39-0400 Body weight 91 kg Randy Botello Work Phone: [place] [address] Work Phone: 01-29-2021 08:39-0400 Diastolic blood pressure 72 mm[Hg] Randy Botello Work Phone: [place] [address] Work Phone: 01-29-2021 08:39-0400 Systolic blood pressure 102 mm[Hg] Randy Botello Work Phone: [place] [address] Work Phone: 01-21-2021 08:51-0400 Body height 162.56 cm Randy Botello Work Phone: [place] [address] Work Phone: 01-21-2021 08:51-0400 Body mass index (BMI) [Ratio] 34.55 kg/m2 Randy Botello Work Phone: [place] [address] Work Phone: 01-21-2021 08:51-0400 Body surface area Derived from formula 1.96 m2 Randy Duffyel Work Phone: [place] [address] Work Phone: 01-21-2021 08:51-0400 Body temperature 96.8 [degF] Randy Duffyel Work Phone: [place] [address] Work Phone: 01-21-2021 08:51-0400 Body weight 91.3 kg Randy Botello Work Phone: [place] [address] Work Phone: 01-21-2021 08:51-0400 Diastolic blood pressure 70 mm[Hg] Randy Duffyel Work Phone: [place] [address] Work Phone: 01-21-2021 08:51-0400 Systolic blood pressure 112 mm[Hg] Randy Maryjo Duffyel Work Phone: [place] [address] Work Phone: 01-14-2021 08:51-0400 Body height 162.56 cm aRndy Botello Work Phone: [place] [address] Work Phone: 01-14-2021 08:51-0400 Body mass index (BMI) [Ratio] 33.87 kg/m2 Randy Botello Work Phone: [place] [address] Work Phone: 01-14-2021 08:51-0400 Body surface area Derived from formula 1.94 m2 Randy Botello Work Phone: [place] [address] Work Phone: 01-14-2021 08:51-0400 Body temperature 96.8 [degF] Randy Duffyel Work Phone: [place] [address] Work Phone: 01-14-2021 08:51-0400 Body weight 89.5 kg Randy Duffyel Work Phone: [place] [address] Work Phone: 01-14-2021 08:51-0400 Diastolic blood pressure 70 mm[Hg] Randy Maryjo Nerissa Work Phone: [place] [address] [employer] Work Phone: 01-14-2021 08:51-0400 Systolic blood pressure 110 mm[Hg] Randy Botello Work Phone: [place] [address] [address] Work Phone: 12-31-2020 08:34-0400 Body height 162.56 cm Randy Botello Work Phone: [place] [address] [address] Work Phone: 12-31-2020 08:34-0400 Body mass index (BMI) [Ratio] 33.6 kg/m2 Randy Botello Work Phone: [place] [address] [employer] Work Phone: 12-31-2020 08:34-0400 Body surface area Derived from formula 1.94 m2 Randy Botello Work Phone: [place] [address] [employer] Work Phone: 12-31-2020 08:34-0400 Body temperature 97.5 [degF] Randy Botello Work Phone: [place] [address] [address] Work Phone: 12-31-2020 08:34-0400 Body weight 88.8 kg Randy Botello Work Phone: [place] [address] [address] Work Phone: 12-31-2020 08:34-0400 Diastolic blood pressure 68 mm[Hg] Randy Botello Work Phone: [place] [address] [address] Work Phone: 12-31-2020 08:34-0400 Systolic blood pressure 112 mm[Hg] Randy Duffyel Work Phone: [place] [address] [employer] Work Phone: 12-17-2020 08:43-0400 Body height 162.56 cm Randy Botello Work Phone: [place] [address] Work Phone: 12-17-2020 08:43-0400 Body mass index (BMI) [Ratio] 33.38 kg/m2 Randy Botello Work Phone: [place] [address] Work Phone: 12-17-2020 08:43-0400 Body surface area Derived from formula 1.93 m2 Randy Botello Work Phone: [place] [address] Work Phone: 12-17-2020 08:43-0400 Body temperature 97.8 [degF] Randy Botello Work Phone: [place] [address] Work Phone: 12-17-2020 08:43-0400 Body weight 88.2 kg Randy Botello Work Phone: [place] [address] Work Phone: 12-17-2020 08:43-0400 Diastolic blood pressure 72 mm[Hg] Randy Botello Work Phone: [place] [address] Work Phone: 12-17-2020 08:43-0400 Systolic blood pressure 110 mm[Hg] Randy Sibley Nerissa Work Phone: [place] [address] Work Phone: 11-19-2020 08:38-0400 Body height 162.56 cm Randy Duffyel Work Phone: [place] [address] Work Phone: 11-19-2020 08:38-0400 Body mass index (BMI) [Ratio] 32.58 kg/m2 Randy Sibley Nerissa Work Phone: [address] Work Phone: 11-19-2020 08:38-0400 Body surface area Derived from formula 1.91 m2 Randy Botello Work Phone: [place] [address] Work Phone: 11-19-2020 08:38-0400 Body temperature 97.5 [degF] Randy Botello Work Phone: [place] [address] Work Phone: 11-19-2020 08:38-0400 Body weight 86.1 kg Randy Botello Work Phone: [place] [address] Work Phone: 11-19-2020 08:38-0400 Diastolic blood pressure 66 mm[Hg] Randy Botello Work Phone: [place] [address] Work Phone: 11-19-2020 08:38-0400 Systolic blood pressure 112 mm[Hg] Randy Botello Work Phone: [place] [address] Work Phone: 08-05-2020 10:59-0500 BMI (Body Mass Index) 29.93 kg/m2 Randy Botello [facility] [address] Work Phone: 08-05-2020 10:59-0500 Body Temperature 97.1 [degF] Randy Botello [facility] [address] Work Phone: 08-05-2020 10:59-0500 Body weight 79.09 kg Randy Botello [facility] [address] Work Phone: 08-05-2020 10:59-0500 BP Diastolic 72 mm[Hg] Randy Botello [facility] [address] Work Phone: 08-05-2020 10:59-0500 BP Systolic 118 mm[Hg] Randy Yanez-[place] [facility] [address] Work Phone: 08-05-2020 10:590500 BSA (Body Surface Area) 1.85 m2 Randy Yanez-[place] [address] Work Phone: 08-05-2020 10:590500 Height 162.56 cm Randy Yanez-Asharely terrazas [address] Work Phone: Encounters Encounter Date Encounter Type Care Provider Facility Start: 04-17-2025 End: 04-17-2025 ambulatory No Primary Care Physician Facility:[facility] Start: 04-10-2025 End: 04-10-[address] Priscilla Gandara DO -[facility] Work Phone: Start: 04-10-2025 End: 04-10-2025 ambulatory No Primary Care Physician -[facility] Start: 04-06-2025 Patient encounter procedure Renetta Hinojosa WINDING MACHINE OPERATOR-C -Ultrasound [facility] Work Phone: Start: 04-06-2025 ambulatory No Primary Car e Physician Facility:[facility] Start: 04-03-2025 Patient encounter procedure Renetta Hinojosa WINDING MACHINE OPERATOR-C -Laboratory [facility]imen Work Phone: Start: 04-03-2025 End: 04-03-2025 Patient encounter procedure Renetta Hinojosa WINDING MACHINE OPERATOR-C -[facility] Work Phone: Start: 04-03-2025 End: 04-03-[address] Roro Troy MD Work Phone: -[facility] Start: 04-03-2025 End: 04-03-2025 ambulatory No Primary Care Physician Facility:[facility] Start: 03-21-2025 End: 03-21-[address] Roro Troy MD -[facility] Work Phone: Start: 03-21-2025 End: 03-21-2025 ambulatory No Primary Care Physician -[facility] Start: 03-07-2025 End: 03-07-[address] Priscilla Gandara DO -[facility] Work Phone: Start: 03-07-2025 End: 03-07-2025 ambulatory No Primary Care Physician -[facility] Start: 02-23-2025 End: 02-23-2025 Patient encounter procedure Chinyere Covarrubias CNM -[facility] Work Phone: Start: 02-23-2025 End: 02-23-2025 ambulatory No Primary Care Physician [facility] Start: 02-06-2025 ambulatory Priscilla Gandara Fa cility:[facility] Start: 02-06-2025 Non-patient / Non-visit Dr. Shalom Gandara DO -[facility] Start: 02-06-2025 End: 02-06-2025 Patient encounter procedure Renetta Hinojosa WINDING MACHINE OPERATOR-C -[facility] Work Phone: Start: 02-06-2025 End: 02-06-2025 ambulatory No Primary Care Physician -[facility] Start: 01-16-2025 End: 01-16-2025 Patient encounter procedure Renetta Hinojosa WINDING MACHINE OPERATOR-C -[facility] Work Phone: Start: 01-16-2025 End: 01-16-2025 ambulatory No Primary Care Physician -[facility] Start: 12-26-2024 End: 12-26-2024 ambulatory No Primary Care Physician -Ultrasound [facility] Start: 12-26-2024 End: 12-26-2024 Patient encounter procedure Renetta Hinojosa WINDING MACHINE OPERATOR-C -Ultrasound [facility] Work Phone: Start: 12-26-2024 End: 12-26-2024 ambulatory No Primary Care Physician Facility:[facility] Start: 12-19-2024 End: 12-19-[address] Roro Troy MD -[facility] Work Phone: Start: 12-19-2024 End: 12-19-2024 ambulatory No Primary Care Physician [facility] Work Phone: Start: 12-08-2024 End: 12-08-2024 ambulatory No Primary Care Physician [facility] Work Phone: Start: 12-08-2024 End: 12-08-[address] Roro Troy MD -[facility] Work Phone: Start: 12-08-2024 End: 12-08-2024 ambulatory No Primary Care Physician Facility:[facility] Start: 11-22-2024 End: 11-22-2024 Patient encounter procedure Sindhu Leblanc CNM -[facility] Work Phone: Start: 11-22-2024 End: 11-22-2024 ambulatory No Primary Care Physician [facility] Work Phone: Start: 10-24-2024 End: 10-24-[address] Roro Troy MD -[facility] Work Phone: Start: 10-24-2024 End: 10-24-2024 ambulatory Roro Troy Facility:[facility] Start: 09-22-2024 End: 09-22-2024 Patient encounter procedure Sindhu Leblanc CNM -[facility] Work Phone: Start: 09-22-2024 End: 09-22-2024 ambulatory No Primary Care Physician [facility] Work Phone: Start: 09-22-2024 End: 09-22-[facility] Start: 08-21-2023 Non-patient / Non-visit No [facility] Physician [facility] Start: 08-21-2023 End: 08-21-2023 Evaluation and management of inpatient No Primary Care Physician [facility] [place] Work Phone: Start: 08-19-2023 End: 08-19-2023 Patient encounter procedure No Primary Care Physician [facility] Work Phone: Start: 08-13-2023 End: 08-13-2023 Patient encounter procedure No Primary Care Physician [facility] Work Phone: Start: 08-06-2023 End: 08-06-2023 Patient encounter procedure No Primary Care Physician [facility] Work Phone: Start: 08-05-2023 End: 08-05-2023 Patient encounter procedure No Primary Care Physician [facility]-Ultrasound, [facility] Work Phone: Start: 07-30-2023 End: 07-30-2023 Patient encounter procedure No Primary Care Physician [facility] Work Phone: Start: 07-16-2023 End: 07-16-2023 Patient encounter procedure No Primary Care Physician [facility] Work Phone: Start: 07-02-2023 End: 07-02-2023 Patient encounter procedure No Primary Care Physician [facility] Work Phone: Start: 06-14-2023 End: 06-14-2023 Patient encounter procedure No Primary Care Physician [facility] Work Phone: Start: 06-04-2023 End: 06-04-2023 ambulatory No Primary Care Physician [facility] Work Phone: Start: 06-04-2023 End: 06-04-2023 Patient encounter procedure No Primary Care Physician [facility] Work Phone: Start: 05-18-2023 End: 05-18-2023 Patient encounter procedure No Primary Care Physician [facility] Work Phone: Start: 04-13-2023 End: 04-13-2023 ambulatory No Primary Care Physician [facility] Work Phone: Start: 04-13-2023 End: 04-13-2023 Patient encounter procedure No Primary Care Physician [facility]-Laboratory, Specimen Work Phone: Start: 04-13-2023 End: 04-13-2023 Patient encounter procedure No Primary Care Physician [facility] Work Phone: Start: 03-29-2023 End: 03-29-2023 ambulatory No Primary Care Physician [facility] Work Phone: Start: 03-29-2023 End: 03-29-2023 Patient encounter procedure No Primary Care Physician [facility] Ultrasound Work Phone: Start: 03-17-2023 End: 03-17-2023 Patient encounter procedure No Primary Care Physician [facility] Work Phone: Start: 03-09-2023 End: 03-09-2023 ambulatory No Primary Care Physician [facility] Work Phone: Start: 03-09-2023 End: 03-09-2023 Patient encounter procedure No Primary Care Physician [facility]-Laboratory, OP Pavilion Start: 02-19-2023 End: 02-19-2023 Patient encounter procedure No Primary Care Physician [facility] Work Phone: Start: 01-21-2023 End: 01-21-2023 Patient encounter procedure No Primary Care Physician [facility]-Laboratory, Specimen Work Phone: Start: 01-21-2023 End: 01-21-2023 Patient encounter procedure No Primary Care Physician [facility] Work Phone: Start: 10-05-2022 End: 10-05-2022 ambulatory [facility] Work Phone: Start: 10-05-2022 End: 10-05-2022 Patient encounter procedure [facility]-Laboratory Start: 09-24-2022 End: 09-24-2022 ambulatory [facility] Work Phone: Start: 09-24-2022 End: 09-24-2022 Patient encounter procedure [facility]-Laboratory Start: 09-18-2022 End: 09-18-2022 ambulatory [facility] Work Phone: Start: 09-18-2022 End: 09-18-2022 Patient encounter procedure [facility]-Laboratory Start: 09-16-2022 End: 09-16-2022 ambulatory [facility] Work Phone: Start: 09-16-2022 End: 09-16-2022 Patient encounter procedure [facility]-Ultrasound, [facility] Start: 01-28-2022 Rx Renewal Randy Duffy el Work Phone: [employer] Work Phone: Start: 08-27-2021 Chart Update Randy Duffy el Work Phone: [employer] Work Phone: Start: 08-20-2021 Periodic preventive med est patient 18-39 yrs Randy Botello Work Phone: [employer] Work Phone: Start: 03-04-2021 Patient encounter procedure Randy Botello Work Phone: [employer] Work Phone: Start: 02-18-2021 Postop follow up vis it related to original px Randy Botello Work Phone: [employer] Work Phone: Start: 02-04-2021 End: 02-07-2021 Evaluation and management of inpatient Rj Hatch [facility] L[facility] Start: 02-03-2021 Chart Update Randy benitez Work Phone: [employer] Work Phone: Start: 01-29-2021 Office outpatient vi sit 15 minutes Randy Botello Work Phone: [employer] Work Phone: Start: 01-21-2021 Office outpatient vi sit 15 minutes Randy Maryjo Nerissa Work Phone: [place] [address] [address] Work Phone: Start: 01-16-2021 Chart Update Randy Sibley Nag el Work Phone: [address] Work Phone: Start: 01-15-2021 Chart Update Randy Maryjo Nag el Work Phone: [address] Work Phone: Start: 01-14-2021 EPVOB, Provider: Rj Hatch, Status: Pen, Time: 8:45 AM Randy Maryjo Nerissa Work Phone: [address] Work Phone: Start: 01-14-2021 Office outpatient vi sit 15 minutes Randy Maryjo Nerissa Work Phone: [address] Work Phone: Start: 01-13-2021 AUDIT Randy Maryjo Nag el Work Phone: [address] Work Phone: Start: 12-17-2020 Office outpatient vi sit 15 minutes Randy Maryjo Nerissa Work Phone: [place] [address] [address] Work Phone: Start: 12-03-2020 Office outpatient vi sit 15 minutes Randy Maryjo Nerissa Work Phone: [place] [address] [address] Work Phone: Start: 11-27-2020 Chart Update Randy Sibley Nag el Work Phone: [place] [address] [address] Work Phone: Start: 11-27-2020 Chart Update Randy M Nag el Work Phone: [employer] Work Phone: Start: 08-05-2020 Patient encounter procedure Randy Botello [employer] Work Phone: Start: 07-10-2020 Patient encounter procedure Randy Botello [employer] Work Phone: Cancer cervix - screening done Randy Botello Work Phone: [employer] Work Phone: Comment on above: 08/05/2020: ASC-US, HPV negative; Encounter for gynecological examination (general) (routine) without abnormal findings Randy Botello [employer] Phone: [employer] Phone: Comment on above: 08/05/2020: ASC-US, HPV negative; End: 08-28-2021 Encounter for gynecological examination (general) (routine) without abnormal findings Randy Botello [employer] Phone: [employer] Phone: Comment on above: 08/20/2021: Negative 08/05/2020: [...] HCV Quant by PCR testing - HCVPCR lc#[id number] Non Reactive: < 0.8 Equivocal: >/= 0.8 [...] on above: Performed By: #### T +S ####[place] [address] Start: 08-08-2020 Antibody screen Comment on above: Order Comment: TEST TYPE + SCREEN WAS CANCELLED, 08/05/2020 11:17 DUPLICATE ORDER. Performed By: #### V ERAB #### [place] [address] H/O: section Status pos t delivery Randy [...] ful (vaginal after ), currently Renetta Hillmantings WINDING MACHINE OPERATOR-C H/O: section Hx success ful (vaginal after ), currently Renetta Hinojosa WINDING MACHINE OPERATOR-C H/O: section Hx success ful (vaginal after ), currently Chinyere Covarrubias CNM H/O: section Hx success ful (vaginal after ), currently Dr. Priscilla Gandara DO H/O: section Hx success ful (vaginal after ), currently Dr. Roro Troy MD H/O: section Hx success ful (vaginal after ), currently Renetta Hinojosa WINDING MACHINE OPERATOR-C H/O: section Hx success ful (vaginal after ), currently Dr. Priscilla Gandara DO History of No histor y of surgery Randy Botello No history of surgery Zeferino Botello Work Phone: Plan of Treatment Date Care Activity Detail Author Start: 04-03-2025 Beta-hemolytic Streptococcus culture Group B Streptococcus Culture [facility] Start: 04-03-2025 Group B Streptococcu s Culture Group B Streptococcus Culture [facility] Start: 04-03-2025 Streptococcus agalac tiae [Presence] in Unspecified specimen by Organism specific culture [facility] Start: 02-06-2025 Nonstress test [facility] Start: 02-06-2025 Obstetric monitoring [facility] Start: 02-06-2025 Vital signs measurements [facility] Start: 02-06-2025 CBC W Auto Different ial panel - Blood [facility] Start: 02-06-2025 Measurement of gluco se 2 hours after glucose challenge for glucose tolerance test [facility] Start: 02-06-2025 Serologic test for syphilis [facility] Start: 02-06-2025 End: 02-06-2025 [facility] Start: 02-06-2025 Patient discharge [facility] Start: 08-21-2023 Administration of medication [facility] Start: 08-21-2023 Application of ice collar, cap or bag [facility] Start: 08-21-2023 Catheterization of vein [facility] Start: 08-21-2023 Introduction of urin armond catheter [facility] Start: 08-21-2023 Measuring intake and output [facility] Start: 08-21-2023 Notification of physician [facility] Start: 08-21-2023 Procedure discontinued [facility] Start: 08-21-2023 Provision of activit y privileges [facility] Start: 08-21-2023 Vital signs measurements [facility] Start: 08-21-2023 End: 08-21-2023 [facility] Start: 08-21-2023 Documentation procedure [facility] Start: 08-21-2023 Admission procedure [facility] Start: 08-21-2023 Patient discharge [facility] Start: 08-21-2022 Patient encounter procedure ANNUAL, Provider: Rj Hatch, Status: Pen, Time: 2:00 PM [facility] [employer] Work Phone: Start: 08-20-2021 Patient encounter procedure ANNUAL, Provider: Rj Hatch, Status: Pen, Time: 2:00 PM [facility] Work Phone: Start: 03-04-2021 Patient encounter procedure [facility] Start: 03-04-2021 PPV, Provider: Rj Hatch, Status: Pen, Time: 1:30 PM PPV, Provider: Rj Hatch, Status: Pen, Time: 1:30 PM [facility] [employer] Work Phone: Start: 02-05-2021 End: 02-06-2022 HYDROmorphone Injectable 0.2 mg IntraVenous Push Every 4 Hours PRN ; (DILAUDID)DOSE = 0.4 mg IntraVenous Push Every 3 Hours, PRN breakthrough painClinician Notes: Conditional Order: START AFTER PUBLIC RELATIONS ANALYST is discontinued. Start: 05-Feb-2021 End: 05-Feb-2022 Ordered: 04-Feb-2021 Holden, Rj R Intent Comments: Conditional Order: START AFTER PUBLIC RELATIONS ANALYST is discontinued. [facility] Comment on above: Conditional Order: S TART AFTER PUBLIC RELATIONS ANALYST is discontinued. Start: 02-05-2021 End: 02-05-2022 [facility] Comment on above: Consult provider kera or [...] Rj Hatch, Status: Pen, Time: 9:00 AM [employer] Work Phone: Start: 01-29-2021 EPVOB, Provider: Rj Hatch, Status: Pen, Time: 8:30 AM EPVOB, Provider: Rj Hatch, Status: Pen, Time: 8:30 AM [employer] Work Phone: Start: 01-21-2021 EPVOB, Provider: Rj Hatch, Status: Pen, Time: 8:45 AM EPVOB, Provider: Rj Hatch, Status: Pen, Time: 8:45 AM [employer] Work Phone: Start: 12-31-2020 EPVOB, Provider: Rj Hatch, Status: Pen, Time: 8:30 AM EPVOB, Provider: Rj Hatch, Status: Pen, Time: 8:30 AM [facility] [employer] Work Phone: Start: 12-17-2020 EPVOB, Provider: Rj Hatch, Status: Pen, Time: 8:30 AM EPVOB, Provider: Rj Hatch, Status: Pen, Time: 8:30 AM [facility] [employer] Work Phone: Start: 12-03-2020 EPVOB, Provider: Rj Hatch, Status: Pen, Time: 8:30 AM EPVOB, Provider: Rj Hatch, Status: Pen, Time: 8:30 AM [facility] [employer] Work Phone: Anti-D (Rh) immunoglobulin [facility] Beta-hemolytic Streptococcus culture [facility] Erythrocyte mean corpuscular volume determination [facility] anatomy study [facility] Hematocrit [Volume Fraction] of Blood [facility] Hemoglobin [Mass/vol ume] in Blood [facility] Leukocytes [#/volume ] in Blood [facility] Mean corpuscular hemoglobin concentration determination [facility] Mean corpuscular hemoglobin determination [facility] Neutrophil count [facility] Neutrophil percent differential count [facility] Patient Education Kick Counts ED False Labor OB Triage: Return to Hospital or Notify Physician if you Experience: [facility] Work Phone: Patient referral [facility] Work Phone: Platelets [#/volume] in Blood [facility] Red blood cell count [facility] Red cell distributio n width determination [facility] Ultrasound scan for growth [facility] Payers Date Payer Category Payer Self-pay 2024 Unknown [id number] 2018 Unknown Unknown [facility] PACKAGE PLAN [id number] Unknown [id number] 2.16.8 [id number] Unknown [id number] 2.16.8 [id number] Unknown [id number] 2.16.8 40.1.738242.3.579.2.462 Unknown [id number] 2.16.8 40.1.575375.3.579.2.462 Unknown [id number] 2.16.8 40.1.494733.3.579.2.462 Unknown [id number] 2.16.8 40.1.090902.3.579.2.462 Unknown [id number] 2.16.8 40.1.563982.3.579.2.462 Unknown [id number] 2.16.8 40.1.677896.3.579.2.462 Unknown [id number] 2.16.8 40.1.115178.3.579.2.462 Unknown [id number] 2.16.8 40.1.219520.3.579.2.462 Unknown [id number] 2.16.8 40.1.121225.3.579.2.462 Unknown [id number] 2.16.8 40.1.672675.3.579.2.462 Unknown [id number] 2.16.8 40.1.656996.3.579.2.462 Unknown [id number] 2.16.8 40.1.185772.3.579.2.462 Unknown [id number] 2.16.8 40.1.086298.3.579.2.462 Unknown [id number] 2.16.8 40.1.902414.3.579.2.462 Unknown [id number] 2.16.8 40.1.009556.3.579.2.462 Unknown [id number] 2.16.8 40.1.198796.3.579.2.462 Unknown [id number] 2.16.8 40.1.389499.3.579.2.462 Social History Date Type Detail Facility Assertion Tobacco smoking consumption unknown (finding) [place] [address] [employer] Work Phone: Sexually active Sexually active [place] [address] [employer] Phone: Start: 05-18-2022 End: 08-21-2023 Tobacco smoking consumption unknown [facility] Start: 1990 Sex Assigned At Female [facility] Start: 09-05-2024 Tobacco smoking stat us NHIS Never smoked tobacco (finding) [facility] Start: 09-28-2024 Sex Female (finding) [facility] Sex Female [facility] Goals Date Patient Goal Desired Activity /State Functional Status Date Assessment Result Facility Functional observable [facility] NEGATED: Highlighted row Functional performance Functional status health issues are not documented Disease [place] [address] [employer] Work Phone: Mental Status Date Assessment Result Facility 02-07-2021 Cognitive functi ons 17:11 [facility] NEGATED: Highlighted row Cognitive function [Interpretation] Cognitive status health issues are not documented Disease [place] [address] [employer] Work Phone: Clinical Notes 02-04-2021 to 04-03-2025 Note Date & Type Note Facility 04-03-2025 Progress note [facility] 03-21-2025 Progress note [facility] 02-06-2025 Radiology Diagnostic study note [facility] Imaging Services [address] [place] [address] OB Biophysical Prof W/O NST MR#: [id number] Acct: [id number] Name: CANDI MOYA Rep #: [id number] : 1990 F 34 From: Fran Fonseca MD PCP: Care Physician,No Primary Status: REG CLI Study:OB Biophysical Prof W/O NST Date of Exa m: 02/06/25 Exam# [id number] Ordering Dr: Priscilla Pack DO PROCEDURE: OB [...] IMPRESSION: Normal biophysical profile score. Reading Location: [id number] CC: Dr. Priscilla Gandara DO; No Primary Care Physician ~ Gravity Meter Observer: Signed [facility] 12-27-2024 Radiology Diagnostic study note [facility] Imaging Services [address] [place] [address] OB Limited (No Biometrics) MR#: [id number] Acct: [id number] Name: CANDI MOYA Rep #: [id number] : 1990 F 34 From: Fran Fonseca MD PCP: Care Physician,No Primary Status: REG CLI Study:OB Limited (No Biometrics) Date of Exam : 12/26/24 Exam# [id number] Ordering Dr: Renetta Hinojosa WINDING MACHINE OPERATOR WINDING MACHINE OPERATOR-C PROCEDURE: OB LIMITED (NO BIOMETRICS) 12/26/2024 REASON [...] MANISHA Hinojosa; No Primary Care Physician ~ Gravity Meter Observer: Signed [facility] 12-19-2024 Evaluation note Diagnosis Onset Date Resolution [...] 9:37am Susceptible to varicella (non-immune), currently acute [place] 5th, 2 025 9:37am arrhythmia affecting , [...] to varicella (non-immune), currently acute March 12:53pm [facility] Work Phone: 1(617) 824-527706-17-2025 Evaluation note* Diagnosis Onset Date Resolution Status [...] varicella (non-immune), currently acute April 10 9:38am [facility] Work Phone: 1(454) 387-745806-09-2025 Radiology Diagnostic study note [facility] Imaging Services [address] [place] [address] [id number] OB Anatomy Scan MR#: [id number] Acct: [id number] Name: CANDI MOYA Rep #: [id number] : 1990 F 34 From: Karli Mcfadden MD PCP: Care Physician,No Primary Status: REG CLI Study:OB Anatomy Scan Date of Exam: 12/27 Exam# [id number] Ordering Dr: Roro Villafana MD PROCEDURE: OB [...] Troy MD; No Primary Care Physician ~ Gravity Meter Observer: Signed [facility]05-21-2025 Evaluation note* Diagnosis Onset Date Resolution Status [...] varicella (non-immune), currently acute February 23 2:17pm [facility] Work Phone: 1(122) 695-906005-21-2025 Evaluation note* Diagnosis Onset Date Resolution Status [...] (non-immune), currently acute March 07 025 2:12pm [facility] Work Phone: [phone] Evaluation note* Diagnosis Onset Date Resolution Status [...] , antepartum resolved March 21, 2025 9:49am [facility] Work Phone: 1(446) 182-933205-21-2025 Progress [facility] [address] [place] [address], [place] [address] OFFICE VISIT Date of Service: 11/22/24 MR#: [id number] Acct: [id number] Name: CANDI MOYA Rep #: [id number] : 1990 Provider: POPEYE Leblanc Age/Sex: 34/F [place] [facility] Status: Signed Intake Vital Signs 09/22/24 14:25 10/24/24 15:27 11/22/24 15:00 Height 5 ft 4 in 5 ft 4 in 5 ft 4 in Weight: 207 lb 8 oz BMI 35.6 BP 113/75 Intake Visit Reasons: 17wk ob Chief Complaint: 17wk OB Environmental Engineering Professor Required: No Is patient in pain?: No [...] 2 current occupational status: unemployed current occupation: 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 Hx Para 2 [...] live - full term 9#11oz Male none [facility] KRISTAL Hay Delivery Date: 02/04/21 Last [...] Symptoms of Preeclampsia, Infant Feeding No , [place] Education and Family Medical Leave or Disability [...] Cosigner Signature: Date (if applicable) CC: ~ [facility]05-21-2025 Progress note Author Sindhu Leblanc [facility] Note Date/Time November 22, 2024 3:12p m [facility] [address] [place] [address], [address] [place] [address] OFFICE VISIT Date of Service: 11/22/24 MR#: [id number] Acct: [id number] Name: CANDI MOYA Rep #: [id number] : 1990 Provider: POPEYE Leblanc Age/Sex: 34/F [place] [facility] Status: Signed Intake Vital Signs 09/22/24 14:25 10/24/24 15:27 11/22/24 15:00 Height 5 ft 4 in 5 ft 4 in 5 ft 4 in Weight: 207 lb 8 oz BMI 35.6 BP 113/75 Intake Visit Reasons: 17wk ob Chief Complaint: 17wk OB Environmental Engineering Professor Required: No Is patient in pain?: No [...] 2 current occupational status: unemployed current occupation: 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 [place] appropriate handout given. 11/22/24 5567 <Electronically signed by iSndhu flynn CNM> Date _ Sindhu Leblanc CNM Cosigner Signature: Date (if applicable) CC: ~ [place] [facility] Work Phone: 1(553) 519-106604-22-2025 Evaluation note* Diagnosis Onset Date Resolution Status [...] (non-immune), currently acute February 06, 2025 9:37am [facility] Work Phone: 1(691) 505-839904-22-2025 Evaluation note* Diagnosis Onset Date Resolution Status [...] (non-immune), currently acute February 06, 2025 9:37am [facility] Work Phone: [phone]) [phone] Evaluation note* Diagnosis Onset Date Resolution Status [...] (non-immune), currently acute September 22, 2024 2:21pm [facility] Work Phone: 1([phone]) 998-278703-21-2025 Evaluation note* Diagnosis Onset Date Resolution Status [...] (non-immune), currently acute November 22, 2024 2:51pm [facility] Work Phone: [phone]) 222-258903-21-2025 Evaluation note* Diagnosis Onset Date Resolution Status [...] (non-immune), currently acute December 19, 2024 11:24am [facility] Work Phone: 1(658) 147-988403-21-2025 Evaluation note* Diagnosis Onset Date Resolution Status [...] (non-immune), currently acute January 16, 2025 1:36pm [place] [employer] Work Phone: 1(422) 649-788002-17-2024 Discharge summary Author Roro Troy [facility] August 21, 2023 7:19am Note Date/Time August 21, 2023 7:19am [facility] Medical Records Department [address] [place] [address] Instructions for Home/Discharge Instructions 08/21/23 0719 MR#: [id number] Acct: [id number] Name: GRIFFINCANDILI SHARMA Rep #:[id number] : 1990 33 From: Roro sweeney MD [...] Up With: Roro Troy MD When: Call [phone] to make an appointment with your doctor [...] CC: No Primary Care Physician ~ Signed [facility] Work Phone: 1([phone]) 244-561402-17-2024 Procedure [facility] 08-21-2023 History and physical note Author Roro Troy [facility] August 21, 2023 5:31am Note Date/Time August 21, 2023 5:31am [facility] Medical Records Department [address] [place] [address] H&P Exam - RECEIVING SPECIALIST 08/21/23 0507 MR#: [id number] Acct: [id number] Name: CANDI MOYA Rep #:[id number] : 1990 33 From: Roro sweeney MD PCP: Care Physician,No Primary Status :ADM IN Location: [id number] HPI - General General Date of Admission: [...] Bth Weight Gen Labor Lgth Anesthesia [facility] Provider FOB 02/04/21 Edmun 39 live - [...] any complications: none I have reviewed the [facility] and made any clinically relevant updates. 08/21/23 0531 <Electronically signed by Roro Troy MD> Cosigner Signature (if applicable): CC: Dr. 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 Care Physician~ Signed [facility] Work Phone: 1(372) 688-674402-16-2022 NoteAccession #: [id number] Date of Procedure: 08/20/2021 Pathologist: [facility], Cytology Date Reported: 08/27/2021 Date Received: 08/20/2021 [...] test interpretation above. QC review performed at [facility], [address] [place] [id number] This specimen has been analyzed by the IMANINPrep Imaging System ([employer] an automated imaging and review system, which assists the laboratory in evaluating cells on ThinPrep Pap tests. Following automated imaging, selected beltran from every slide were reviewed by a senior paralegal and/or pathologist. Electronically Signed Out By [facility], Cytology//[facility] By the signature on this report, [...] Source of Specimen A: THINPREP PAP CERVICAL [facility] Department of Pathology [address] [place] [address] [id number] Oaks HospitalComment on above:Performed By: #### C #### [facility] Cytology [address] [place] [address] [id number] NoteSend Summary: Discharge Summary Providers: Provider RoleProvider Name AttendingRj Hatch Note Recipients: none Discharge: Summary: Admission Date: .04-Feb-2021 05:11:00 Discharge Date: 07-Feb-2021 Attending Physician at Discharge: Rj Hatch Admission Reason: Term Final Discharge Diagnoses: Status post delivery Procedures: Primary low transverse section Condition at Discharge: Satisfactory Disposition at Discharge: .Home Vital Signs: T PRBPSpO2 Value36.94400717/7298% Date/Time02/07 4:148/6 4:148/6 4:148/6 4:148/6 4:14 Range(36.6C [...] Pending: None Radiology Results - Pending: None [place] Suicide Risk: negative Discharge Instructions: Activity: Return to normal activity as tolerated Nutrition/Diet: Regular Follow Up Appointments: Follow-Up - OB Provider: Physician/Dept/Service: Rj Hatch MD Call to Schedule in: 2 weeks Discharge Medications: [id number] Tylenol and Motrin Electronic Signatures: Rj Hatch) (Signed 07-Feb-2021 07:14) Authored: Send Summary, Summary Content, Ongoing Care, Note Completion Last Updated: 07-Feb-2021 07:14 by Rj Hatch)[facility] 02-05-2021 NoteProvider Information: Maternal Delivery Information: [...] pre-op dx Delivery Provider: Rj Hatch MD Budder: Tang Rios DO Dictation: not applicable - [...] extended laterally with bandage scissors, with the cuprous chloride operator's hand between the scissors and the [...] was taken to PACU in good condition. Pharmaceutical Botanist: Dr. Rios as needed for appropriate retraction, [...] Completion Last Updated: 04-Feb-2021 22:44 by Rj Hatch)[facility] 02-04-2021 NoteHPI/OB History: Care Provider: Rj [...] 05-Aug-2020 Syphilis Results: negative Antepartum/: Antepartum/PP: Final [id number] Current EGA:39 Patient is > or = [...] been reviewed. Objective: Objective Information: T PRBPSpO2 [id number]/7395% Date/Time83 6:228/3 6:218/3 6:22 Range (95 - [...] From Patient Profile - OB v3 04-Feb-2021 06:41[facility]* Cardiovascular: S1 S2 RRR, no murmursExtremities: no calf tenderness, reflexes 2+Constitutional: alert, orientedRespiratory/Thorax: normal respiratory effort, lungs clear, no wheezes or rhonchi [facility] HospitalsEvaluation noteNo assessment information available [facility] Work Phone: Evaluation note* Diagnosis Onset Date [...] Supervision of high risk , antepartum acute [facility] Work Phone: Evaluation note* Diagnosis Onset Date [...] Susceptible to varicella (no n-immune), currently acute [facility] Work Phone: Evaluation note* Diagnosis Onset Date [...] Susceptible to varicella (no n-immune), currently acute [facility] Work Phone: Evaluation note* Diagnosis Onset Date [...] Susceptible to varicella (no n-immune), currently acute [facility] Work Phone: Evaluation note* Diagnosis Onset Date [...] Supervision of high risk , antepartum resolved [facility] Work Phone: History of Present illness [id number] presents for 2-week postop status post primary for arrest. Patient is she is doing well. Pain controlled. Bleeding improving. Bowel and bladder function returned to normal. Infant doing well. Patient is no acute concerns [employer] Work Phone: History of Present illness NarrativePatient presents for checkup. She is breast and bottlefeeding. She is a heterozygote forfactor V Leiden.[employer] Work Phone: History of Present illness NarrativePresents for annual exam. She voices no complaints and is doing well. Denies any bowel or bladder problems. Denies any breast problems. She is on progesterone only control pills due to history of factor V Leiden. Patient does nurse having her menstrual flow twice a month since being on the progestin only control pill.[employer] Work Phone: Hospital Discharge instructions* Activity:Return to [...] symptoms worsen, call 911 or [facility] room. *Information obtained from FAIZAN s: Save Your Life: Get Care for These POST- Warning SignsOn Behalf on the [facility] Maternity Staff, Congratulations on your . [...] us a call. Also, please join our [facility] Support Group which meets the wednesday of every month at 10 am in the OB unit. No need to register. If you have any questions please call us at [phone]. Again, Congratulations! Warmest Regards,[facility] M[facility] Staff [facility] HospitalsProgress note Author Roro Troy [facility] Note Date/Time March 21, 2025 10:42[facility] [address], [address] [place] [address] OFFICE VISIT Date of Service: 03/21/25 MR#: [id number] Acct: [id number] Name: CANDI MOYA Rep #: [id number] : 1990 Provider: Dr. 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 Date Name GA/Weeks Outcome Route Bth Weight Gen Labor Lgth Anesthesia Del Locatn Provider FOB 02/04/21 Edmun 39 live - full term 7lb 14oz [facility] 08/21/23 Flaco 39 live - full [...] -?-?-?-?-?-?-?-?-?-?-?-?- -No VB, LOF. G ood FM [facility] 02/06/25 -?-?-?-?-?-?-?-?-?-?-?-?- 28w 4d 211 lb 1 [...] and Symptoms of Preeclampsia, Feeding No , [place] Education, Family Medical Leave or Disability Forms, [...] Good Signature: Date (if applicable) CC: ~ [facility] Work Phone: Progress note Author Renetta Hinojosa [facility] Note Date/Time April 03, 2025 1:34pm [facility] [address] [place] [address], [address] [place] [address] OFFICE VISIT Date of Service: 04/03/25 MR#: [id number] Acct: [id number] Name: CANDI MOYA Rep #: [id number] : 1990 Provider: MANISHA Hinojosa Age/Sex: 34/F [place] [facility] [place] Status: Signed Intake Vital Signs 02/06/25 09:59 03/21/25 10:21 04/03/25 12:57 Height 5 ft 4 in 5 ft 4 in 5 ft 4 in Weight: 211 lb 6 oz BMI 36.3 BP 104/70 Intake Visit Reasons: 36 WK OB/NST Chief Complaint: 36 Week OB/NST Environmental Engineering Professor Required: No Is patient in pain?: No [...] 2 current occupational status: unemployed current occupation: 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 Date Name GA/Weeks Outcome Route Bth Weight Infant Gen Labor Lgth Anesthesia Del Locatn Provider FOB 02/04/21 Edmun 39 live - full term 7lb 14oz Male epidural [place] Hay 08/21/23 Flaco 39 live - full term 9#11oz Male none [facility] Delivery Date: 02/04/21 Last Updated by: Priscilla [...] -?-?-?-?-?-?-?-?-?-?-?-?- -No VB, LOF. [facility] 02/[facility] -?-?-?-?-?-?-?-?-?-?-?-?- 28w 4d 211 lb 1 [...] Office Urine Protein Negative Last Edit by Selene Edge on 04/03/25 13 :07 Coding Level [...] mutation, heterozygous D68.51 CPT Codes Non-Stress Test (95956) Assessment and Plan Assessment and Plan (1) [...] Continue routine care and follow up. 04/03/25 2891 <Electronically signed by Renetta flynn WINDING MACHINE OPERATOR WINDING MACHINE OPERATOR-C> Date _ Renetta Hinojosa NP WINDING MACHINE OPERATOR-C Cosigner Signature: Date (if applicable) CC: ~ [facility] Work Phone: Reason for referral (narrative)No reason for referral information availableWToledo Hospital Work Phone: Summary Purpose Family History [...] Will No August 21 4:34am Power of Feather Edger No August 21, 2023 4:34am Chief Complaint [...] 07, 2025 2:12pm Supervision of high-risk [facility] 2024 2:12pm Susceptible to varicella (no n-immune), [...] 21, 2025 9:49am Supervision of high-risk [facility] 2024 9:49am Susceptible to varicella (no n-immune), [...] 11:24am Factor 5 Leiden mutation, heterozygous J [facility] 2024 11:24am Hx successful (vaginal after ), [...] 1:36pm Factor 5 Leiden mutation, heterozygous J [facility] 2024 1:36pm Hx successful (vaginal after ), [...] 07, 2025 2:12pm Supervision of high-risk [facility] 2024 2:12pm Susceptible to varicella (no n-immune), [...] 21, 2025 9:49am Supervision of high-risk [facility] 2024 9:49am Susceptible to varicella (no n-immune), [...] section and content) DATE CREATED AUTHOR 04/14/2019 [facility] [email or web address] [facility] DATE CREATED AUTHOR AUTHOR'S ORGANIZ ATION 06/06/2021 [facility] DATE CREATED AUTHOR AUTHOR'S ORGANIZ ATION 08/21/2021 [employer] DATE CREATED AUTHOR AUTHOR'S ORGANIZ ATION 02/26/2022 [facility] DATE CREATED AUTHOR AUTHOR'S ORGANIZ ATION 04/18/2025 [facility] <item> Privacy Markings (unrecogniz ed [...] Physician Primary Care Provider Active Renetta Hinojosa WINDING MACHINE OPERATOR, WINDING MACHINE OPERATOR-C Attending Provider, Referring Provider Active Team Status: [...] Inactive Member Role/Relationship Status Dates Renetta Hinojosa WINDING MACHINE OPERATOR, WINDING MACHINE OPERATOR-C Attending Provider Active Start: December 26, 2024 End: December 26, 2024 Renetta Hinojosa WINDING MACHINE OPERATOR, WINDING MACHINE OPERATOR-C Referring Provider Active Start: December 26, 2024 End: December 26, 2024 No Primary Care Physician Primary Care Provider Active Start: December 26, 2024 End: December 26, 2024 Team Status: Inactive Member Role/Relationship Status Dates Renetta Hinojosa WINDING MACHINE OPERATOR, WINDING MACHINE OPERATOR-C Attending Provider Active Start: January 16, 2025 [...] 2024 End: December 08, 2024 Dr. Roro Tory MD Referring Provider Active Start: December 08, [...] Inactive Member Role/Relationship Status Dates Renetta Hinojosa WINDING MACHINE OPERATOR, WINDING MACHINE OPERATOR-C Attending Provider Active Start: December 26, 2024 End: December 26, 2024 Renetta Hinojosa WINDING MACHINE OPERATOR, WINDING MACHINE OPERATOR-C Referring Provider Active Start: December 26, 2024 End: December 26, 2024 No Primary Care Physician Primary Care Provider Active Start: December 26, 2024 End: December 26, 2024 Team Status: Inactive Member Role/Relationship Status Dates Renetta Hinojosa WINDING MACHINE OPERATOR, WINDING MACHINE OPERATOR-C Attending Provider Active Start: January 16, 2025 End: January 16, 2025 No Primary Care Physician Primary Care Provider Active Start: January 16, 2025 End: January 16, 2025 No Primary Care Physician Referring Provider Active Start: January 16, 2025 End: January 16, 2025 Team Status: Inactive Member Role/Relationship Status Dates Renetta Hinojosa WINDING MACHINE OPERATOR, WINDING MACHINE OPERATOR-C Attending Provider Active Start: February 06, 2025 End: February 06, 2025 No Primary Care Physician Primary Care Provider Active Start: February 06, 2025 End: February 06, 2025 No Primary Care Physician Referring Provider Active Start: February 06, 2025 End: February 06, 2025 Team Status: Active Member Role/Relationship Status Dates No Primary Care Physician Primary Care Provider Active Start: February 06, 2025 Renetta Hinojosa WINDING MACHINE OPERATOR, WINDING MACHINE OPERATOR-C Attending Provider Active Start: February 06, 2025 Renetta Hinojosa WINDING MACHINE OPERATOR, WINDING MACHINE OPERATOR-C Referring Provider Active Start: February 06, 2025 Team Status: Inactive Member Role/Relationship Status Dates No Primary Care Physician Primary Care Provider Active Start: February 06, 2025 End: February 06, 2025 Renetta Hinojosa WINDING MACHINE OPERATOR, WINDING MACHINE OPERATOR-C Other Provider Active St art: February 06, [...] Inactive Member Role/Relationship Status Dates Dr. Roro rToy MD Attending Provider Active Start: December 08, [...] Inactive Member Role/Relationship Status Dates Renetta Hinojosa WINDING MACHINE OPERATOR, WINDING MACHINE OPERATOR-C Attending Provider Active Start: December 26, 2024 End: December 26, 2024 Renetta Hinojosa WINDING MACHINE OPERATOR, WINDING MACHINE OPERATOR-C Referring Provider Active Start: December 26, 2024 End: December 26, 2024 No Primary Care Physician Primary Care Provider Active Start: December 26, 2024 End: December 26, 2024 Team Status: Inactive Member Role/Relationship Status Dates Renetta Hinojosa WINDING MACHINE OPERATOR, WINDING MACHINE OPERATOR-C Attending Provider Active Start: January 16, 2025 End: January 16, 2025 No Primary Care Physician Primary Care Provider Active Start: January 16, 2025 End: January 16, 2025 No Primary Care Physician Referring Provider Active Start: January 16, 2025 End: January 16, 2025 Team Status: Inactive Member Role/Relationship Status Dates Renetta Hinojosa WINDING MACHINE OPERATOR, WINDING MACHINE OPERATOR-C Attending Provider Active Start: February 06, 2025 [...] 2025 End: February 06, 2025 Renetta Hinojosa WINDING MACHINE OPERATOR, WINDING MACHINE OPERATOR-C Other Provider Active St art: February 06, [...] Active Start: February 06, 2025 Renetta Hinojosa WINDING MACHINE OPERATOR, WINDING MACHINE OPERATOR-C Other Provider Active St art: February 06, [...] November 22, 2024 End: November 22, 2024 Snidhu Leblanc CNM Attending physician Active Start: November [...] Inactive Member Role/Relationship Status Dates Renetta Hinojosa WINDING MACHINE OPERATOR, WINDING MACHINE OPERATOR-C Attending physician Active Start: December 26, 2024 End: December 26, 2024 Renetta Hinojosa WINDING MACHINE OPERATOR, WINDING MACHINE OPERATOR-C Referring Provider Active Start: December 26, 2024 End: December 26, 2024 No Primary Care Physician Primary care physician Activ e Start: December 26, 2024 End: December 26, 2024 Team Status: Inactive Member Role/Relationship Status Dates Renetta Hinojosa WINDING MACHINE OPERATOR, WINDING MACHINE OPERATOR-C Attending physician Active Start: January 16, 2025 End: January 16, 2025 No Primary Care Physician Primary care physician Activ e Start: January 16, 2025 End: January 16, 2025 No Primary Care Physician Referring Provider Active Start: January 16, 2025 End: January 16, 2025 Team Status: Inactive Member Role/Relationship Status Dates Renetta Hinojosa WINDING MACHINE OPERATOR, WINDING MACHINE OPERATOR-C Attending physician Active Start: February 06, 2025 [...] 2025 End: February 06, 2025 Renetta Hinojosa WINDING MACHINE OPERATOR, WINDING MACHINE OPERATOR-C Nurse Practitioner Active Start: February 06, 2025 [...] e Start: February 06, 2025 Renetta Hinojosa WINDING MACHINE OPERATOR, WINDING MACHINE OPERATOR-C Nurse Practitioner Active Start: February 06, 2025 [...] Inactive Member Role/Relationship Status Dates Renetta Hinojosa WINDING MACHINE OPERATOR, WINDING MACHINE OPERATOR-C Attending physician Active Start: December 26, 2024 End: December 26, 2024 Renetta Hinojosa WINDING MACHINE OPERATOR, WINDING MACHINE OPERATOR-C Referring Provider Active Start: December 26, 2024 End: December 26, 2024 No Primary Care Physician Primary care physician Activ e Start: December 26, 2024 End: December 26, 2024 Team Status: Inactive Member Role/Relationship Status Dates Renetta Hinojosa WINDING MACHINE OPERATOR, WINDING MACHINE OPERATOR-C Attending physician Active Start: January 16, 2025 End: January 16, 2025 No Primary Care Physician Primary care physician Activ e Start: January 16, 2025 End: January 16, 2025 No Primary Care Physician Referring Provider Active Start: January 16, 2025 End: January 16, 2025 Team Status: Inactive Member Role/Relationship Status Dates Renetta Hinojosa WINDING MACHINE OPERATOR, WINDING MACHINE OPERATOR-C Attending physician Active Start: February 06, 2025 [...] 2025 End: February 06, 2025 Renetta Hinojosa WINDING MACHINE OPERATOR, WINDING MACHINE OPERATOR-C Nurse Practitioner Active Start: February 06, 2025 [...] e Start: February 06, 2025 Renetta Hinojosa WINDING MACHINE OPERATOR, WINDING MACHINE OPERATOR-C Nurse Practitioner Active Start: February 06, 2025 [...] End: April 03, 2025 Renetta Hinojosa NP, WINDING MACHINE OPERATOR-C Attending physician Active Start: April 03, 2025 End: April 03, 2025 Team Status: Active Member Role/Relationship Status Dates No Primary Care Physician Primary care physician Activ e Start: April 03, 2025 Renetta Hinojosa WINDING MACHINE OPERATOR, WINDING MACHINE OPERATOR-C Attending physician Active Start: April 03, 2025 Renetta Micaela WINDING MACHINE OPERATOR, WINDING MACHINE OPERATOR-C Referring Provider Active Start: April 03, 2025 Team Status: Inactive Member Role/Relationship Status Dates No Primary Care Physician Referring Provider Active Start: December 19, 2024 End: December 19, 2024 Dr. Roro Troy MD Attending physician Active Start: December 19, 2024 End: December 19, 2024 Team Status: Inactive Member Role/Relationship Status Dates Renetta Hinojosa WINDING MACHINE OPERATOR, WINDING MACHINE OPERATOR-C Attending physician Active Start: December 26, 2024 End: December 26, 2024 Renetta Hinojosa WINDING MACHINE OPERATOR, WINDING MACHINE OPERATOR-C Referring Provider Active Start: December 26, 2024 End: December 26, 2024 No Primary Care Physician Primary care physician Activ e Start: December 26, 2024 End: December 26, 2024 Team Status: Inactive Member Role/Relationship Status Dates Renetta Hinojosa WINDING MACHINE OPERATOR, WINDING MACHINE OPERATOR-C Attending physician Active Start: January 16, 2025 End: January 16, 2025 No Primary Care Physician Primary care physician Activ e Start: January 16, 2025 End: January 16, 2025 No Primary Care Physician Referring Provider Active Start: January 16, 2025 End: January 16, 2025 Team Status: Inactive Member Role/Relationship Status Dates Renetta Hinojosa WINDING MACHINE OPERATOR, WINDING MACHINE OPERATOR-C Attending physician Active Start: February 06, 2025 [...] 2025 End: February 06, 2025 Renetta Hinojosa WINDING MACHINE OPERATOR, WINDING MACHINE OPERATOR-C Nurse Practitioner Active Start: February 06, 2025 [...] e Start: February 06, 2025 Renetta Hinojosa WINDING MACHINE OPERATOR, WINDING MACHINE OPERATOR-C Nurse Practitioner Active Start: February 06, 2025 [...] 2025 End: April 03, 2025 Renetta Hinojosa WINDING MACHINE OPERATOR, WINDING MACHINE OPERATOR-C Attending physician Active Start: April 03, 2025 End: April 03, 2025 Team Status: Active Member Role/Relationship Status Dates No Primary Care Physician Primary care physician Activ e Start: April 03, 2025 Renetta Hinojosa WINDING MACHINE OPERATOR, WINDING MACHINE OPERATOR-C Attending physician Active Start: April 03, 2025 Renetta [place] WINDING MACHINE OPERATOR, WINDING MACHINE OPERATOR-C Referring Provider Active Start: April 03, 2025 [...] BE BASED ON THE PRIMARY CLINICAL RECORDS. [facility]. provides no warranty or guarantee of the accuracy or completeness of information in this document.
[2025-04-21] MEDS: Lactated Ringers 1,000 ML 50 ML IV (04:15)
[2025-04-21 04:26] LABS: Hematocrit 34.6 % (37-47); Hemoglobin 11.6 g/dL (12.0-15.0); Immature Granulocytes Count 0.110 X10^3/uL (0.0-0.0); Mean Corp Hgb Conc 33.5 g/dL (32-36); Mean Corpuscular Volume 81.0 fL (81-99); Mean Platelet Vol. 10.7 fl (6.2-12.0); NRBC Flagged by Analyzer 0 % (0-5); Platelet Count 256 K/mm3 (150-450); RBC Distribution Width CV 13.9 % (11.6-14.6); RBC Distribution Width SD 39.8 fl (35.1-43.9); Red Blood Count 4.27 M/mm3 (4.2-5.4); White Blood Count 13.0 K/mm3 (4.4-11.0)
[2025-04-21] MEDS: Penicillin G Pot 5,000,000 UNITS in 0.9% Normal Saline (100mL MB+) 100 ML 150 UNITS IV (04:50)
[2025-04-21 05:02] LABS: Syphilis Antibodies Nonreactive (Nonreactive)
[2025-04-21] MEDS: Oxytocin 15 Units/NS 250ml 15 UNITS/250 ML IV.SOLN 334 UNITS IV (05:23)
--- NOTE | 2025-04-21 05:34 | HP.PCM.OB_ITS ---
HPI - General General Date of Admission: 04/21/25 HPI Narrative CANDI MOYA, is a 34 F who presents IAL regular ctx desires TOLAC no vb lof admits good fm Maternal Data Information ANDREA Calculator Estimated Delivery Date Method Current WG Current Estimate 04/27/25 LMP (Certain) 39w 1d Other Estimates 04/27/25 Ultrasound #1 39w 1d PFSH PFSH Medical History Vaginal after Blood clotting disorder Encounter to determine viability of History of abnormal cervical Pap smear Pre-conception counseling Home Medications ?Medication ?Instructions ?Recorded ?Last Taken ?Type PNV 153-FA 400 mcg-om3 35 mg-dha 1 tab PO DAILY pregna ncy 09/05/24 02/05/25 20:00 History 25 mg-epa 5 mg-fish oil chew tablet 1 TAB magnesium 250 mg tablet 250 mg PO QDAY 09/05/24 Unkn own History Held on 02/06/25. Instructions: per pt Allergy/AdvReac Type Severity Reaction Status Date / Time No Known Allergies Allergy Verified 04/20/25 09:50 Family History Grandmother Ovarian cancer CVA (cerebral vascular accident) Diabetes Grandfather CVA (cerebral vascular accident) Factor V Leiden Maternal Grandmother Diabetes Surgical History S/P Social History adopted: No household members: spouse and children housing: house number of children: 2 current occupational status: unemployed current occupation: [employer] current occupational exposures/hazards: No pets and animals: No history of recent travel: No sexually active: Yes Smoking Status: Never smoker alcohol intake: never substance use type: does not use well-balanced diet: daily or most days caffeine: Yes Type: carbonated beverages Number of servings: 1 eating out: rarely or never during the past year weight has: increased > 10 lbs what type of physical activity do you participate in: none neftaly/mosque: Baptism seatbelt use: always do you feel safe at home: Yes 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 history: - [facility]- [facility] Medicine History 4 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 Date Name GA/Weeks Outcome Route Bth Weight Infant Gen Labor Lgth Anesthesia Del Locatn Provider FOSuzy 02/04/21 [facility] 39 live - full term 7lb 14oz Male epidural pato Guido 08/21/23 [facility] 39 live - full term 9#11oz Male none WC KRISTAL [place] Delivery Date: 02/04/21 Last Updated by: Priscilla Gandara, DO was an induction for LGA, cervix was swelling shut therefore csection was done Delivery Date: 08/21/23 Last Updated by: Laura Rowell Baby transported due to breathing issues several hours after delivery Visit Details Expected Delivery Route/Plan patient counseled regarding risks/benefits of trial of labor versus repeat . ACOG/uptodate education given to patient. [] % likelihood of success per calculator TOLAC consent form signed: [] Labor Preferences- CB/BF classes: no labor support person: Octavio labor intervention preferences: [] pain management options preferred: limited cut cord/dad catch: no : you PP control planned: discussed discussed possible routes of delivery and associated risks: [] special requests: [] patient counseled regarding risks/benefits of trial of labor versus repeat . ACOG/uptodate education given to patient. [] % likelihood of success per calculator TOLAC consent form signed: [] Plans Covid status: [] Flu vaccine: [] Tdap vaccine: declines Rhogam: na LARC form signed: yes Problem list reviewed and updated with the most current plan of care details and appropriate orders placed. Relevant counseling for the gestational age provided. Continue routine care and follow up unless otherwise noted in visit no lowell/problem list details OB Flowsheet Initial Weight: 207 lb Date -?-?-?-?-?-?-?-?-?-?-?-?- EGA Weight BP Urine Prot -?-?-?-?-?-?-?-?-?-?-?-?- Glucose FHR FuHt Pres Dilation -?-?-?-?-?-?-?-?-?-?-?-?- Effaced St Visit Note 09/22/24 -?-?-?-?-?-?-?-?-?-?-?-?- 9w 0d 207 lb 4 oz (+4 oz) 126/79 -?-?-?-?-?-?-?-?-?-?-?-?- 188 -?-?-?-?-?-?-?-?-?-?-?-?- KW- CRL cons wit h dates. Declines NIPT 10/24/24 -?-?-?-?-?-?-?-?-?-?-?-?- 13w 4d 206 lb 4 oz (-12 oz) 110/76 Negative -?-?-?-?-?-?-?-?-?-?-?-?- Negative 157 -?-?-?-?-?-?-?-?-?-?-?-?- SM- no vb crampi ng 11/22/24 -?-?-?-?-?-?-?-?-?-?-?-?- 17w 5d 207 lb 8 oz (+8 oz) 113/75 Negative -?-?-?-?-?-?-?-?-?-?-?-?- Negative 145 -?-?-?-?-?-?-?-?-?-?-?-?- KW- no vb/ctx. p ossible flutters. US scheduled. AFP declined. 12/19/24 -?-?-?-?-?-?-?-?-?-?-?-?- 21w 4d 207 lb 8 oz (+8 oz) 104/70 -?-?-?-?-?-?-?-?-?-?-?-?- 140 -?-?-?-?-?-?-?-?-?-?-?-?- SM- no vb lof go od fm no regualr ctx 01/16/25 -?-?-?-?-?-?-?-?-?-?-?--?- 25w 4d 209 lb 8 oz (+2 lb 8 oz) 98/60 Negative -?-?-?-?-?-?-?-?-?-?-?-?- Negative 146 26 -?-?-?-?-?-?-?-?-?-?-?-?- MH-No VB, LOF. [facility] -?-?-?-?-?-?-?-?-?-?-?-?- 28w 4d 211 lb 1 oz (+4 lb 1 oz) 119/69 Negative -?-?-?-?-?-?-?-?-?-?-?-?- Negative 140 -?-?-?-?-?-?-?-?-?-?-?-?- MH-No VB, LOF. G ood FM. Declines tdap. Note arrhythmia. BPP today 02/23/25 -?-?-?-?-?-?-?-?-?-?-?-?- 31w 0d 209 lb 1 oz (+2 lb 1 oz) 101/69 Negative -?-?-?-?-?-?-?-?-?-?-?-?- Negative 135 32 Cephalic -?-?-?-?-?-?-?-?-?-?-?-?- LC- no vb/ctx/lo f. good fm. no arrhythmia appreciated today. 03/07/25 -?-?-?-?-?-?-?-?-?-?-?-?- 32w 5d 208 lb 6 oz (+1 lb 6 oz) 108/70 Negative -?-?-?-?-?-?-?-?-?-?-?-?- Negative 140 34 -?-?-?-?-?-?-?-?-?-?-?-?- JV- no lof, vagi nal bleeding, or dec fm. plan us at 36 weeks for position 03/21/25 -?-?-?-?-?-?-?-?-?-?-?-?- 34w 5d 209 lb 8 oz (+2 lb 8 oz) 106/71 Negative -?-?-?-?-?-?-?-?-?-?-?-?- Negative 140 35 Cephalic -?-?-?-?-?-?-?-?-?-?-?-?- SM- no vb lof go od fm n oregular ctx 04/03/25 -?-?-?-?-?-?-?-?-?-?-?-?- 36w 4d 211 lb 6 oz (+4 lb 6 oz) 104/70 Negative -?-?-?-?-?-?-?-?-?-?-?-?- Negative 135 38 Cephalic 1 .5 -?-?-?-?-?-?-?-?-?-?-?-?- 40 -3 MH-No VB, LOF. Good FM. Irreg CTX. GBS. Reactive NST 04/10/25 -?-?-?-?-?-?-?-?-?-?-?-?- 37w 4d 209 lb 9 oz (+2 lb 9 oz) 106/70 1+ -?-?-?-?-?-?-?-?-?-?-?-?- Negative 140 -?-?-?-?-?-?-?-?-?-?-?-?- JV- reactive NST . Declines exam today. discussed much check next visit as she wants to and also requires a 3 week IOL. JV- reactive NST. Declines e xam today. discussed much check next visit as she wants to and also requires a 3 week IOL. AC is 93rd%. JV- reactive NST. Declines e xam today. discussed much check next visit as she wants to and also requires a 39- 39 weeks 6 day delivery timing. AC is 93rd%. 04/17/25 -?-?-?-?-?-?-?-?-?-?-?-?- 38w 4d 214 lb 7 oz (+7 lb 7 oz) 121/85 Negative -?-?-?-?-?-?-?-?-?-?-?-?- Negative 140 38 3.5 -?-?-?-?-?-?-?-?-?-?-?-?- 60 -3 SM- no vb lof good fm no regular ctx 10/17/25 -?-?-?-?-?-?-?-?-?-?-?-?- 39w 0d 214 lb 2 oz (+7 lb 2 oz) 106/75 Trace -?-?-?-?-?-?-?-?-?-?-?-?- Negative 140 39 Cephalic 4 -?-?-?-?-?-?-?-?-?-?-?-?- 70 -2 SM- no vb lof good fm no regular ctx membranes swept NST FHR Rate Baby A Baseline: 140 Variability:: Moderate Accelerations:: 15 x 15 Decelerations:: None NST Reactive:: Yes FHR Category:: Category I Uterine Activity:: q3-5 ROS Constitutional Constitutional: Reports systems reviewed and no addt'l complaints, except as documented ENT HEENT: Reports systems reviewed and no addt'l complaints, except as documented Cardiovascular Cardiovascular: Reports systems reviewed and no addt'l complaints, except as documented Respiratory/Chest Respiratory/Chest: Reports systems reviewed and no addt'l complaints, except as documented Gastrointestinal Gastrointestinal: Reports systems reviewed and no addt'l complaints, except as documented and nausea; Denies abdominal pain Genitourinary Genitourinary: Reports systems reviewed and no addt'l complaints, except as documented, contractions Details: present and frequency (regular ) and movement Details: present Musculoskeletal Musculoskeletal: Reports systems reviewed and no addt'l complaints, except as documented Integumentary Integumentary: Reports as per HPI Neurologic Neurologic: Reports systems reviewed and no addt'l complaints, except as documented Endocrine Endocrinology: Reports systems reviewed and no addt'l complaints, except as documented Vital Signs Vital Signs Vital Signs: 04/21/25 04:10 04/21/25 04:10 04/21/25 04:10 Temperature Temperature Source Temporal Pulse Rate 105 H Respiratory Rate Blood Pressure BP Systolic BP Diastolic Pulse Ox 96 04/21/25 04:10 04/21/25 04:10 04/21/25 04:10 Temperature 97.8 F Temperature Source Pulse Rate Respiratory Rate 18 Blood Pressure BP Systolic BP Diastolic Pulse Ox 96 04/21/25 04:11 04/21/25 04:11 04/21/25 05:32 Temperature Temperature Source Pulse Rate 97 93 Respiratory Rate Blood Pressure 124/83 H BP Systolic 124 BP Diastolic 83 Pulse Ox 04/21/25 05:32 04/21/25 05:33 04/21/25 05:33 Temperature Temperature Source Pulse Rate 88 Respiratory Rate Blood Pressure 121/70 H BP Systolic 121 BP Diastolic 70 Pulse Ox 100 Weight Weight: 214 lb Body Mass Index (BMI) 36.7 Physical Exam Const alert, oriented x3 and healthy appearing Constitutional Narrative: uncomfortable with contractions HEENT normocephalic and moist oral mucous membranes Head and Scalp: atraumatic Neck full ROM, no lymphadenopathy, supple and thyroid normal General: trachea midline Thyroid: thyroid normal Lymph Lymphatic: no lymphadenopathy noted Chest inspection of chest normal Resp normal respiratory effort Cardio regular rate GI soft to palpation and non-tender GI Narrative: gravid Inspection: gravid external exam normal Bimanual Exam - Vag & Uterus: uterus non-tender Manual OB Exam: estimated gestational size appropriate, presentation cephalic, dilated, effaced and station Extremity normal to inspection General Extremity: Negative for edema Skin no rashes or lesions noted Neuro deep tendon reflexes 2+ bilaterally Motor Exam: strength 5/5 throughout and clonus absent Psych mental status grossly normal Labs Labs Labs: Blood Type O POSITIVE Antibody Screen NEGATIVE Hct, (37-47) 34.6 % L Hgb, (12.0-15.0) 11.6 g/dL L Pap Smear Negative Obstetrics Ultrasound Syphilis Total Ab, (Nonreactive) Nonreactive VZV IgG Antibody, (Immune >165) < 135 index L Rubella IgG Antibody, (Nonreactive) REAC Hep Bs Antigen, (Nonreactive) Nonreactive Hepatitis C Antibody, (Nonreactive) Nonreactive Chlamydia DNA (PEMA), (Negative) Negative N.gonorrhoeae DNA (PEMA), (Negative) Negative HIV 1&2 Antibody, (Nonreactive) Nonreactive Glucose 1 Hr 50 gm, (70-140) 121 mg/dL Assessment & Plan (1) Positive GBS test: COMMENT: Treat in labor (2) LGA (large for gestational age) fetus: COMMENT: 36 wk:Growth US: EFW 65%, AC 93% (3) Previous delivery affecting : COMMENT: successful (4) Supervision of high-risk : QUALIFIERS: Trimester: third trimester Qualified Code(s): O09.93 - Supervision of high risk , unspecified, third trimester COMMENT: PRR, , ANDREA 04/27/25, PC [facility] Varghese, Hay (5) : QUALIFIERS: Weeks of gestation: 39 weeks Qualified Code(s): Z3A .39 - 39 weeks gestation of COMMENT: genetic carrier and ntd screening declined.nl anatomy (6) Advanced maternal age (AMA) in : COMMENT: nsts after 36 weeks, deliver by 39 weeks 6 days based on ACOG guidelines for Factor V, ama, obesity, and LGA; 36 wk growth US shows AC is 93rd% (7) Obesity affecting : QUALIFIERS: Trimester: second trimester Obesity type affecting : unspecified obesity Qualified Code(s): O99.212 - Obesity complicating , second trimester COMMENT: HgbA1c (8) Hx successful (vaginal after ), currently : (9) Susceptible to varicella (non-immune), currently : (10) Factor 5 Leiden mutation, heterozygous: COMMENT: no need for anticoagulants during for heterozgotes without clot history - anticoagulation recommended x 6 weeks if section PLAN: Plan Patient presents IOL, plan management for with exp managmenet Pain management: prefers minimal intervention GBS pos pcn given Management of any complications: none I have reviewed the [facility] and made any clinically relevant updates.
--- NOTE | 2025-04-21 05:43 | OB.VAGDELI_ITS ---
Assessment & Plan (1) Positive GBS test: COMMENT: Treat in labor (2) LGA (large for gestational age) fetus: COMMENT: 36 wk:Growth US: EFW 65%, AC 93% (3) Previous delivery affecting : COMMENT: successful (4) Supervision of high-risk : QUALIFIERS: Trimester: third trimester Qualified Code(s): O09.93 - Supervision of high risk , unspecified, third trimester COMMENT: PRR, , ANDREA 04/27/25, PC He[place] Varg[place]se, Hay (5) : QUALIFIERS: Weeks of gestation: 39 weeks Qualified Code(s): Z3A.39 - 39 weeks gestation of COMMENT: genetic carrier and ntd screening declined.nl anatomy (6) Advanced maternal age (AMA) in : COMMENT: nsts after 36 weeks, deliver by 39 weeks 6 days based on ACOG guidelines for Factor V, ama, obesity, and LGA; 36 wk growth US shows AC is 93rd% (7) Obesity affecting : QUALIFIERS: Trimester: second trimester Obesity type affecting : unspecified obesity Qualified Code(s): O99.212 - Obesity complicating , second trimester COMMENT: HgbA1c (8) Hx successful (vaginal after ), currently : (9) Susceptible to varicella (non-immune), currently : (10) Factor 5 Leiden mutation, heterozygous: COMMENT: no need for anticoagulants during for heterozgotes without clot history - anticoagulation recommended x 6 weeks if section (11) , delivered, current hospitalization: COMMENT: ed[place] 39 Maternal Data Information ANDREA Calculator Estimated Delivery Date Method Current WG Current Estimate 04/27/25 LMP (Certain) 39w 1d Other Estimates 04/27/25 Ultrasound #1 39w 1d Vaginal Delivery Maternal Presentation Maternal Presentation: see assessment and plan Vaginal Delivery Information Procedure Performed: Surgeon/Practitioner: Roro Troy Date of Procedure: 04/21/25 Pre-Procedure Diagnosis: see assessment and plan Post-Procedure Diagnosis: same Type of anesthesia: Epidural Estimated Blood Loss: 100 Findings Description of procedure: Patient began pushing and delivered the head in the CAROL ANN presentation. The head was delivered atraumatically and a loose nuchal cord ?1 was identified and infect was easily delivered through. The anterior and posterior shoulders delivered without complication followed by the rest of the and the was placed on the maternal abdomen. Delayed cord clamping was employed for approximately 60 seconds. Cord was clamped and cut and gentle traction was applied to the cord and the placenta delivered spontaneously immediately following it was noted to be intact with three-vessel cord. The perineum and vagina were inspected and noted to have no laceration. EBL was 100 cc. Patient and tolerated delivery well. Presentation: Vertex Placental Delivery Description: Spontaneous Specimen collected: Yes Description of specimen(s) removed: placenta Benefits Representative computer help desk representative: No Post Vaginal Deli Medications given after delivery: Other (pitocin) Complication Complications: No Multi Select Codes Urinary/Genital Urinary/Genital CPT Codes: 17540 delivery global pkg
--- OUTSIDE RECORDS SUMMARY | 2025-04-21 05:45 | XMS RPT_ITS | CCD ---
Author Organization [facility] Care Team Providers Care Embroidery Operator Name Role Phone Randy Botello Unavailable Unavailable [...] Woodrow DICKSON, Dr. Read Attending Provider [phone] Dr. Roro Troy MD Referring Provider [phone] [employer], Renetta Attending Provider [phone] [employer], Renetta Referring Provider [phone] Care Physician, No Primary Referring Provider Un available Sindhu Leblanc CNM Attending Provider [phone] Care Physician, No Primary Primary Care Provider Unavailable Micaela [employer], Renetta Other Provider [phone] Sailaja Sidhu [...] Primary Primary Care Physicia n Unavailable Micaela [employer]CRenetta Attending Physician [phone] Micaela [employer], Renetta Nurse Practitioner [phone] Dr. Priscilla Gandara [...] No Primary Primary Care Unava ilable Micaela [employer], Renetta Attending Unavailable Care Physician, No Primary Referring Unava ilable Care Physician, No Primary Primary Care Unava ilable Micaela [employer], Renetta Attending Unavailable Priscilla Gandara Attending Unavailabl [...] Physician, No Primary Primary Care Unava ilable [employer], Renetta Consulting Unavailable Priscilla Gandara Consulting Unavailabl e Roro Troy Attending Unavailable Care Physician, No Primary Referring Unava ilable Care Physician, No Primary Referring Unava ilable Care Physician, No Primary Primary Care Unava ilable Micaela [employer], Renetta Attending Unavailable Care Physician, No Primary Primary Care Unava ilable Micaela [employer], Renetta Referring Unavailable [facility] [employer], Renetta Attending Unavailable Care Physician, No Primary Primary Care Unava ilable [facility] [employer], Renetta Attending Unavailable Imcaela [employer], Renetta Referring Unavailable Care Physician, No Primary Primary Care Unava ilable [facility] [employer], Renetta Referring Unavailable Micaela [employer], Renetta Attending Unavailable Care Physician, No Primary [...] PO DAILY January 21, 2023 12:00am Pnv No.104-Cj-Za1-Dha-Epa-Fi sh 400 mcg-35 mg- 25 mg-5 mg tablet,chewable (13 sources) Start: 09-05-2024 Start: 09-05-2024 Pnv No.153-Fa- Il4-Kpm-Xqb-Fish 400 mcg-35 mg- 25 mg-5 mg tablet,chewable Active 1 {tbl} PO DAILY September 05, 2024 1:00am Complies with drug therapy Start: 09-05-2024 Pnv No.153-Fa- Mt3-Bvj-Suh-Fish 400 mcg-35 mg- 25 mg-5 mg tablet,chewable Active 1 {tbl} PO DAILY September 05, 2024 1:00am Start: 09-05-2024 Pnv No.153-Fa- Gu4-Jsd-Cov-Fish 400 mcg-35 mg- 25 mg-5 mg tablet,chewable [...] Spouse Hay PRR, , ANDREA 04/27, PC [place], [place], Hay Other complications of (20 sources) [...] Test Name Value Interpretation Reference Range Facility Podiatric Medicine Doctor Office Visit Reporton 04-17-2025 Podiatric Medicine Doctor Office Visit Report [facility] [address], [address] [place] [address] OFFICE VISIT Date of Service: 04/17/25 MR#: [id number] Acct: [id number] Name: CANDI MOYA Rep #: [id number] : 1990 Provider: Dr. 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 Normal [facility] Rule out Beta Strep (Grp. B) on 04-12-2025 GEORGES Pending Streptococcus agalactiae (B) Amount Growth Growth Streptococcus agalactiae (B): REACTION Ampicillin Islt NILAM <=0.25 cefTRIAXone Islt NILAM <=0.12 S Clindamycin Islt NILAM <=0.25 S Clindamycin.induced Susc Islt NEG Linezolid Islt NILAM <=2 S Vancomycin Islt NILAM 0.5 S Normal [facility] Comment on above: Performed By: #### M 100.9258 #### [facility] [address] [place], [address] Podiatric Medicine Doctor Office Visit Reporton 04-10-2025 Podiatric Medicine Doctor Office Visit Report [facility] [address], [address] [place] [address] OFFICE VISIT Date of Service: 04/10/25 MR#: [id number] Acct: [id number] Name: CANDI MOYA Rep #: [id number] : 1990 Provider: Dr. 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 (more content not included)... Normal [facility] OB Limited With Biometricson 04-06-2025 OB Limited With Biometrics [facility] [address] [place] [address] OB Limited With Biometrics MR#: [id number] Acct: [id number] Name: CANDI MOYA Rep #: [id number] : 1990 F 34 From: Catrachito Prajapati MD PCP: Care Physician,No Primary Status: REG CLI Study: OB Limited With Biometrics Date of Exam: 04/06 Exam# [id number] Ordering Dr: Renetta Hinojosa NP [employer] PROCEDURE: OB LIMITED WITH BIOMETRICS 04/06/2025 [...] noted since the previous study Reading Location: [id number] CC: MANISHA Hinojosa; No Primary Care Physician Nuclear Equipment Design Engineer: Signed Normal [facility] - Chemistry and C hemistry - challengeOrdered By: Renetta Hinojosa on 04-03-2025 Glucose Ql (U) Negative [facility] - UrinalysisOrder ed By: Renetta Hinojosa on 04-03-2025 Protein Ql (U) Negative [facility] Podiatric Medicine Doctor Office Visit Reporton 04-03-2025 Podiatric Medicine Doctor Office Visit Report [facility] [address], [address] [place] [address] OFFICE VISIT Date of Service: 04/03/25 MR#: [id number] Acct: [id number] Name: CANDI MOYA Rep #: [id number] : 1990 Provider: MANISHA carbajal Age/Sex: 34/F Location[facility] [place] Status: Signed Intake Vital Signs 02/06/25 09:59 03/21/25 10:21 04/03/25 12:57 Height 5 ft 4 in 5 ft 4 in 5 ft 4 in Weight: 211 lb 6 oz BMI 36.3 BP 104/70 Intake Visit Reasons: 36 WK OB/NST Chief Complaint: 36 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 -???- (more content not included)... Normal [facility] - Chemistry and C hemistry - challengeOrdered By: Roro Troy on 03-21-2025 Glucose Ql (U) Negative [facility] - UrinalysisOrder ed By: Roro Troy on 03-21-2025 Protein Ql (U) Negative [facility] Podiatric Medicine Doctor Office Visit Reporton 03-21-2025 Podiatric Medicine Doctor Office Visit Report [facility] [address], [address] [place] [address] OFFICE VISIT Date of Service: 03/21/25 MR#: [id number] Acct: [id number] Name: CANDI MOYA Rep #: [id number] : 1990 Provider: Dr. 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 - (more content not included)... Normal [facility] - Chemistry and C hemistry - challengeOrdered By: Priscilla Sidhu on 03-07-2025 Glucose Ql (U) Negative [facility] - UrinalysisOrder ed By: Priscilla Sidhu on 03-07-2025 Protein Ql (U) Negative [facility] Podiatric Medicine Doctor Office Visit Reporton 03-07-2025 Podiatric Medicine Doctor Office Visit Report [facility] [address], [facility] [address] [place] [address] OFFICE VISIT Date of Service: 03/07/25 MR#: [id number] Acct: [id number] Name: CANDI MOYA Rep #: [id number] : 1990 Provider: Dr. 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 -???-???-???-???- (more content not included)... Normal [facility] - Chemistry and C hemistry - challengeOrdered By: Chinyere Covarrubias on 02-23-2025 Glucose Ql (U) Negative [facility] - UrinalysisOrder ed By: Chinyere Covarrubias on 02-23-2025 Protein Ql (U) Negative [facility] Podiatric Medicine Doctor Office Visit Reporton 02-23-2025 Podiatric Medicine Doctor Office Visit Report [facility] [address], [address] [place] [address] OFFICE VISIT Date of Service: 02/23/25 MR#: [id number] Acct: [id number] Name: CANDI MOYA Rep #: [id number] : 1990 Provider: POPEYE ham Age/Sex: 34/F [place] [facility] [place]: Signed Intake Vital Signs 12/19/24 10:52 02/06/25 09:59 02/23/25 14:20 Height 5 ft 4 in 5 ft 4 in 5 ft 4 in Weight: 209 lb 1 oz BMI 35.9 BP 101/69 Intake Visit Reasons: 30wk ob 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 Normal [facility] Absolute lymphocyte countOrd ered By: Renetta Hillmantings on 02-06-2025 Lymphocytes Auto (Unsp spec) [#/Vol] 2.01 10*3/uL 0.83-4.51 [facility] Absolute neutrophil countOrd ered By: Renettabon Hinojosa on 02-06-2025 Neutrophils (Bld) [#/Vol] 8.1 10*3/uL High 2.0-7.7 [facility] Automated lymphocyte count a s percentage of total leukocytesOrdered By: Renetta Hinojosa on 02-06-2025 Lymphocytes/100 WBC Auto (Unsp spec) 18.1 % Low 19-41 [facility] Basophil percentageOrdered B y: Renetta Micaela on 02-06-2025 Basophils/100 WBC (Bld) 0.4 % 0-1 [facility] CBC W/Diff, Automatedon 08 Absolute Lymph 2.01 X10 3/uL Normal 0.83-4.51 [facility] Comment on above: Performed By: #### L 100.0100, L501.0250, L509.8002, L3890.6006 ####[facility] [address] [place], [place], [address] Absolute Neut 8.1 X10 3/uL High 2.0-7.7 [facility] Comment on above: Performed By: #### L 100.0100, L501.0250, L509.8002, L3890.6006 ####[facility] [address] [place], [address] Basophils/100 WBC (Bld) 0.4 % Normal 0-1 [facility] Comment on above: Performed By: #### L 100.0100, L501.0250, L509.8002, L3890.6006 ####[facility] [address] [place], [address] Eosinophils/100 WBC (Bld) 1.8 % Normal 0-5 [facility] Comment on above: Performed By: #### L 100.0100, L501.0250, L509.8002, L3890.6006 ####[facility] [address] [place], [address] Erythrocyte distribution width (RBC) [Ratio] 13.1 % Normal 11.6-14.6 [facility] Comment on above: Performed By: #### L 100.0100, L501.0250, L509.8002, L3890.6006 ####[facility] [address] [place], [address] Hematocrit (Bld) [Volume fraction] 32.2 % Low 37-47 [facility] Comment on above: Performed By: #### L 100.0100, L501.0250, L509.8002, L3890.6006 ####[facility] [address] [place], [address] Hemoglobin (Bld) [Mass/Vol] 10.6 g/dL Low 12.0-15.0 [facility] Comment on above: Performed By: #### L 100.0100, L501.0250, L509.8002, L3890.6006 ####[facility] [address] [place], [address] IG% 0.900 Normal 0.0-0.9 [facility] Comment on above: Result Comment: IG% - Immature Granulocytes (promyelocytes, myelocytes and metamyelocytes) > 1% indicates that a LEFT SHIFT is Present. Performed By: #### L 100.0100, L501.0250, L509.8002, L3890.6006 ####[facility] [address] [place], [address] Lymphocytes/100 WBC (Bld) 18.1 % Low 19-41 [facility] Comment on above: Performed By: #### L 100.0100, L501.0250, L509.8002, L3890.6006 ####[facility] [address] [place], [address] MCH (RBC) [Entitic mass] 29.5 pg Normal 27.0-32.0 [facility] Comment on above: Performed By: #### L 100.0100, L501.0250, L509.8002, L3890.6006 ####[facility] [address] [place], [address] MCHC (RBC) [Mass/Vol] 32.9 g/dL Normal 32-36 [facility] Comment on above: Performed By: #### L 100.0100, L501.0250, L509.8002, L3890.6006 ####[facility] [address] [place], [address] MCV (RBC) [Entitic vol] 89.7 fL Normal 81-99 [facility] Comment on above: Performed By: #### L 100.0100, L501.0250, L509.8002, L3890.6006 ####[facility] [address] [place], [address] Monocytes/100 WBC (Bld) 5.4 % Normal 0-10 [facility] Comment on above: Performed By: #### L 100.0100, L501.0250, L509.8002, L3890.6006 ####[facility] [address] [place], [address] Neutrophils/100 WBC (Bld) 73.4 % High 47-70 [facility] Comment on above: Performed By: #### L 100.0100, L501.0250, L509.8002, L3890.6006 ####[facility] [address] [place], [address] Nucleated RBC (Bld) [#/Vol] 0 10*3/uL Normal 0-5 [facility] Comment on above: Performed By: #### L 100.0100, L501.0250, L509.8002, L3890.6006 ####[facility] [address] [place], [address] Platelet mean volume (Bld) [Entitic vol] 10.5 fL Normal 6.2-12.0 [facility] Comment on above: Performed By: #### L 100.0100, L501.0250, L509.8002, L3890.6006 ####[facility] [address] [place], [address] Platelets (Bld) [#/Vol] 268 10*3/uL Normal 150-450 [facility] Comment on above: Performed By: #### L 100.0100, L501.0250, L509.8002, L3890.6006 ####[facility] [address] [place], [address] RBC (Bld) [#/Vol] 3.59 10*6/uL Low 4.2-5.4 [facility] Comment on above: Performed By: #### L 100.0100, L501.0250, L509.8002, L3890.6006 ####[facility] [address] [place], [address] RDW SD 42.8 fl Normal 35.1-43.9 [facility] Comment on above: Performed By: #### L 100.0100, L501.0250, L509.8002, L3890.6006 ####[facility] [address] [place], [address] WBC (Bld) [#/Vol] 11.1 10*3/uL High 4.4-11.0 [facility] Comment on above: Performed By: #### L 100.0100, L501.0250, L509.8002, L3890.6006 ####[facility] [address] [place], [address] Eosinophil percentageOrdered By: Renetta Hinojosa on 02-06-2025 Eosinophils/100 WBC (Bld) 1.8 % 0-5 [facility] Erythrocyte distribution wid th ratioOrdered By: Renetta Hinojosa on 02-06-2025 Erythrocyte distribution width (RBC) [Ratio] 13.1 % 11.6-14.6 [facility] Erythrocyte distribution wid th standard deviationOrdered By: Renettabon Hinojosa on 02-06-2025 Erythrocyte distribution width (RBC) [Ratio] 42.8 fl 35.1-43.9 [facility] Glucose Challenge Gest 1H 50 noreen 02-06-2025 GLU GEST 50g 1H 121 mg/dL Normal 70-140 [facility] Comment on above: Performed By: #### L 100.0100, L501.0250, L509.8002, L3890.6006 ####[facility] [address] [place], [address] Glucose measurement at 2 leta rs post-dose gestational glucose tolerance testOrdered By: Renetta Hinojosa on 02-06-2025 Glucose [Mass/Vol] 121 mg/dL 70-140 [facility] HIVon 02-06-2025 HIV Non-Reactive Normal Nonreactive [facility] Comment on above: Result Comment: Non- Reactive Reactive Repeatedly reactive samples must be confirmed according to CDC recommended confirmatory algorithms. The subresults for either HIVAG or AHIV can be used as an aid in the selection of the confirmation algorithm for reactive samples. Send out specimens with Reactive results to [facility] for confirmation. Order the HIV antibody detection and differentiation: lc#[id number] Performed By: #### L 100.0100, L501.0250, L509.8002, L3890.6006 ####[facility] [address] [place], [place], [address] Hematocrit Auto (Bld) [Volum e fraction]Ordered By: Renetta Hionjosa on 02-06-2025 Hematocrit (Bld) [Volume fraction] 32.2 % Low 37-47 [facility] Hemoglobin measurementOrdere d By: Renetta Hinojosa on 02-06-2025 Hemoglobin (Bld) [Mass/Vol] 10.6 g/dL Low 12.0-15.0 [facility] Immature granulocytes/100 WB C Auto (Bld)Ordered By: Renetta Hinojosa on 02-06-2025 Immature granulocytes/100 WBC (Bld) 0.900 % 0.0-0.9 [facility] Comment on above: IG% - Immature Granu locytes (promyelocytes, myelocytes and metamyelocytes) > 1% indicates that a LEFT SHIFT is Present. Laboratory - Chemistry and C hemistry - challengeOrdered By: Renetta Hinojosa on 02-06-2025 Glucose Ql (U) Negative [facility] - UrinalysisOrder ed By: Renetta Hinojosa on 02-06-2025 Protein Ql (U) Negative [facility] MCV (mean corpuscular volume ) determinationOrdered By: Renetta Hinojosa on 02-06-2025 MCV (RBC) [Entitic vol] 89.7 fL 81-99 [facility] Mean corpuscular hemoglobin (MCH) determinationOrdered By: Renetta Hinojosa on 02-06-2025 MCH (RBC) [Entitic mass] 29.5 pg 27.0-32.0 [facility] Mean corpuscular hemoglobin concentration (MCHC) determinationOrdered By: Renetta Hinojosa on 02-06-2025 MCHC (RBC) [Mass/Vol] 32.9 g/dL 32-36 [facility] Mean platelet volume determi nationOrdered By: Renetta Hinojosa on 02-06-2025 Platelet mean volume (Bld) [Entitic vol] 10.5 fL 6.2-12.0 [facility] Monocyte percentageOrdered B y: Renetta Hinojosa on 02-06-2025 Monocytes/100 WBC (Bld) 5.4 % 0-10 [facility] Neutrophil percentageOrdered By: Renetta Burrs on 02-06-2025 Neutrophils/100 WBC (Bld) 73.4 % High 47-70 [facility] No Panel InformationOrdered By: Renetta Hillmantings on 02-06-2025 HIV (1&2) Antibody Non-Reactive Nonreactive [facility] Comment on above: Non-ReactiveReactive Repeatedly reactive samples must be confirmed according to CDC recommended confirmatory algorithms. The subresults for either HIVAG or AHIV can be used as an aid in the selection of the confirmation algorithm for reactive samples.Send out specimens with Reactive results to [facility] for confirmation.Order the HIV antibody detection and differentiation: #[id number] Nucleated red blood cell per centageOrdered By: Renetta Hillmantings on 02-06-2025 Nucleated RBC/100 WBC (Bld) [Ratio] 0 % 0-5 [facility] OB Biophysical Prof W/O NSTo n 02-06-2025 OB Biophysical Prof W/O NST [facility] [address] [place] [address] OB Biophysical Prof W/O NST MR#: [id number] Acct: [id number] Name: CANDI MOYA Rep #: [id number] : 1990 F 34 From: David navarro MD PCP: Care Physician,No Primary Status: REG CLI Study: OB Biophysical Prof W/O NST Date of Exam: 11/26 Exam# [id number] Ordering Dr: Priscilla Gandara DO PROCEDURE: OB [...] IMPRESSION: Normal biophysical profile score. Reading Location: [id number] CC: Dr. Priscilla Gandara DO; No Primary Care Physician Nuclear Equipment Design Engineer: Signed Normal [facility] OB Triage Physician Noteon 0 02-06-2025 OB Triage Physician Note [facility] Medical Records Department [address] [place] [address] OB Triage Physician Note 02/06/252019 MR#: [id number] Acct: [id number] Name: CANDI MOYA Rep #: [id number] : 1990 34 From: Priscilla Gandara DO PCP: Care Physician,No Primary Status:DEP CLI Y Location: [facility] HPI - General HPI Narrative CANDI MOYA, is a 34 y/o @ 28 weeks 6days who presents to [facility] from office. 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 -???- (more content not included)... Normal [facility] Podiatric Medicine Doctor Office Visit Reporton 02-06-2025 Podiatric Medicine Doctor Office Visit Report [facility] [address], [address] [place] [address] OFFICE VISIT Date of Service: 02/06/25 MR#: [id number] Acct: [id number] Name: CANDI MOYA Rep #: [id number] : 1990 Provider: MANISHA carbajal Age/Sex: 34/F [place] [facility] [place]: Signed Intake Vital Signs 12/19/24 10:52 01/16/25 13:51 02/06/25 09:59 Height 5 ft 4 in 5 ft 4 in 5 ft 4 in Weight: 211 lb 1 oz BMI 36.2 BP 119/69 Intake Visit Reasons: 28wk ob/glucose Chief Complaint: 28 Week 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 (more content not included)... Normal [facility] Platelet countOrdered By: Franc Hinojosa on 02-06-2025 Platelets (Bld) [#/Vol] 268 10*3/uL 150-450 [facility] RBC Auto (Bld) [#/Vol]Ordere d By: Renetta Hinojosa on 02-06-2025 RBC (Bld) [#/Vol] 3.59 10*6/uL Low 4.2-5.4 [facility] Syphilis Antibodieson 2024 Syphilis Abs Non-Reactive Normal Nonreactive [facility] Comment on above: Performed By: #### L 100.0100, L501.0250, L509.8002, L3890.6006 ####[facility] [address] [place], [address] White blood cell (WBC) count Ordered By: Renetta Hinojosa on 02-06-2025 WBC (Bld) [#/Vol] 11.1 10*3/uL High 4.4-11.0 [facility] Laboratory - Chemistry and C hemistry - challengeOrdered By: Renetta Hinojosa on 01-16-2025 Glucose Ql (U) Negative [facility] Laboratory - UrinalysisOrder ed By: Renetta Hinojosa on 01-16-2025 Protein Ql (U) Negative [facility] Podiatric Medicine Doctor Office Visit Reporton 01-16-2025 Podiatric Medicine Doctor Office Visit Report [facility]'s [address], [address] [place] [address] OFFICE VISIT Date of Service: 01/16/25 MR#: [id number] Acct: [id number] Name: CANDI MOYA Rep #: [id number] : 1990 Provider: MANISHA carbajal Age/Sex: 34/F Location: [facility] [place] Status: Signed Intake Vital Signs 11/22/24 15:00 12/19/24 10:52 01/16/25 13:43 01/16/25 13:51 Height 5 ft 4 in 5 ft 4 in 5 ft 4 in 5 ft 4 in Weight: 209 lb 8 oz BMI 35.9 BP 98/60 Intake Visit Reasons: 25 wk ob Chief Complaint: 25 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 Normal [facility] OB Limited (No Biometrics)on 12-26-2024 OB Limited (No Biometrics) [facility] Services [address] [place], [place] [id number] OB Limited (No Biometrics) MR#: [id number] Acct: [id number] Name: CANDI MOYA Rep #: [id number] : 1990 F 34 From: David navarro MD PCP: Care Physician,No Primary Status: REG CLI Study: OB Limited (No Biometrics) Date of Exam: 12/26 Exam# [id number] Ordering Dr: Renetta Hinojosa NP [employer] PROCEDURE: OB LIMITED (NO BIOMETRICS) 12/26/2024 [...] Biometrics) IMPRESSION: Normal visualized spine. 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 Normal [facility] OB Anatomy Scanon 12-08-2024 OB Anatomy Scan [facility] [address] [place] [address] OB Anatomy Scan MR#: [id number] Acct: [id number] Name: CANDI MOYA Rep #: [id number] : 1990 F 34 From: David mayers MD PCP: Care Physician,No Primary Status: REG CLI Study: OB Anatomy Scan Date of Exam: 12/08/24 Exam# [id number] Ordering Dr: Roro Troy PROCEDURE: OB ANATOMY [...] normal anatomy. Follow-up is advised. Reading Location: [place] [address] CC: Dr. 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 Care Physician Nuclear Equipment Design Engineer: Signed Normal [facility] Laboratory - Chemistry and C hemistry - challengeOrdered By: Sindhu Leblanc on 11-22-2024 Glucose Ql (U) Negative [facility] Laboratory - UrinalysisOrder ed By: Sindhu Leblanc on 11-22-2024 Protein Ql (U) Negative [facility] Podiatric Medicine Doctor Office Visit Reporton 11-22-2024 Podiatric Medicine Doctor Office Visit Report [facility]'s [address], [address] [place] [address] OFFICE VISIT Date of Service: 11/22/24 MR#: [id number] Acct: [id number] Name: CANDI MOYA Rep #: [id number] : 1990 Provider: POPEYE Huber ams Age/Sex: 34/F [place] [facility] [place]: Signed Intake Vital Signs 09/22/24 14:25 10/24/24 15:27 11/22/24 15:00 Height 5 ft 4 in 5 ft 4 in 5 ft 4 in Weight: 207 lb 8 oz BMI 35.6 BP 113/75 Intake Visit Reasons: 17wk ob 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 -???-???-???-?? (more content not included)... Normal [facility] Laboratory - Chemistry and C hemistry - challengeOrdered By: Roro Troy on 10-24-2024 Glucose Ql (U) Negative [facility] Laboratory - UrinalysisOrder ed By: Roro Troy on 10-24-2024 Protein Ql (U) Negative [facility] Podiatric Medicine Doctor Office Visit Reporton 10-24-2024 Podiatric Medicine Doctor Office Visit Report [facility]'s [address], [address] [place] [address] OFFICE VISIT Date of Service: 10/24/24 MR#: [id number] Acct: [id number] Name: CANDI MOYA Rep #: [id number] : 1990 Provider: Dr. 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 (more content not included)... Normal [facility] Chlamydia/GC PEMA aptimaon CHLAMY,NUC ACID Negative Normal Negative [facility] Comment on above: Performed By: #### M 100.2200, L7000.1800 ####[facility] [address] [place], [place], [id number] GC BY NUC ACID Negative Normal Negative [facility] Comment on above: Result Comment: Perf ormed at: =G - [facility] [id number] Professional Architect: Josefina Gómez MD, Phone: [phone] Performed By: #### M 100.2200, L7000.1800 ####[facility] [address] [place], [place], [id number] Urine Cultureon 09-24-2024 URC Below infection leve l. Mixed Gram Positive Organisms [place] Count 1000-10,000 MIXC Mixed contaminants. Submit a new specimen if indicated. Normal [facility] Comment on above: Performed By: #### M 100.2200, L7000.1800 ####[facility] [address] [place], [place], [address] Absolute lymphocyte countOrd ered By: Sindhu Leblanc on 09-22-2024 Lymphocytes Auto (Unsp spec) [#/Vol] 2.44 10*3/uL 0.83-4.51 [facility] Absolute neutrophil countOrd ered By: Sindhu Leblanc on 09-22-2024 Neutrophils (Bld) [#/Vol] 7.8 10*3/uL High 2.0-7.7 [facility] Automated blood erythrocyte countOrdered By: Sindhu Leblanc on 09-22-2024 RBC (Bld) [#/Vol] 4.58 10*6/uL Normal 4.2-5.4 [facility] Comment on above: Performed By: #### L 3890.6102, L3890.6301, L509.8002, L501.9985, L3890.6006, L100.0100, L509.4006, BTS #### [facility] [address] [place], [place], [address] Automated blood hematocrit ( percentage)Ordered By: Sindhu Leblanc on 09-22-2024 Hematocrit (Bld) [Volume fraction] 40.7 % Normal 37-47 [facility] Comment on above: Performed By: #### L 3890.6102, L3890.6301, L509.8002, L501.9985, L3890.6006, L100.0100, L509.4006, BTS #### [facility] [address] [place], [place], [address] Automated lymphocyte count a s percentage of total leukocytesOrdered By: Sindhu Leblanc on 09-22-2024 Lymphocytes/100 WBC (Bld) 21.8 % Normal 19-41 [facility] Comment on above: Performed By: #### L 3890.6102, L3890.6301, L509.8002, L501.9985, L3890.6006, L100.0100, L509.4006, BTS #### [facility] [address] [place], [address] Lymphocytes/100 WBC Auto (Unsp spec) 21.8 % 19-41 [facility] Basophil percentageOrdered B y: Sindhu Leblanc on 09-22-2024 Basophils/100 WBC (Bld) 0.5 % Normal 0-1 [facility] Comment on above: Performed By: #### L 3890.6102, L3890.6301, L509.8002, L501.9985, L3890.6006, L100.0100, L509.4006, BTS #### [facility] [address] [place], [address] C. trachomatis rRNA PEMA+prob e Ql (Unsp spec)Ordered By: Sindhu Leblanc on 09-22-2024 Chlamydia DNA (PEMA) Negative Negative [facility] CBC W/Diff, Automatedon - Absolute Lymph 2.44 X10 3/uL Normal 0.83-4.51 [facility] Comment on above: Performed By: #### L 3890.6102, L3890.6301, L509.8002, L501.9985, L3890.6006, L100.0100, L509.4006, BTS #### [facility] [address] [place], [address] Absolute Neut 7.8 X10 3/uL High 2.0-7.7 [facility] Comment on above: Performed By: #### L 3890.6102, L3890.6301, L509.8002, L501.9985, L3890.6006, L100.0100, L509.4006, BTS #### [facility] [address] [place], [address] IG% 0.400 Normal 0.0-0.9 [facility] Comment on above: Result Comment: IG% - Immature Granulocytes (promyelocytes, myelocytes and metamyelocytes) > 1% indicates that a LEFT SHIFT is Present. Performed By: #### L 3890.6102, L3890.6301, L509.8002, L501.9985, L3890.6006, L100.0100, L509.4006, BTS #### [facility] [address] [place], [place], [address] Nucleated RBC (Bld) [#/Vol] 0 10*3/uL Normal 0-5 [facility] Comment on above: Performed By: #### L 3890.6102, L3890.6301, L509.8002, L501.9985, L3890.6006, L100.0100, L509.4006, BTS #### [facility] [address] [place], [address] RDW SD 40.9 fl Normal 35.1-43.9 [facility] Comment on above: Performed By: #### L 3890.6102, L3890.6301, L509.8002, L501.9985, L3890.6006, L100.0100, L509.4006, BTS #### [facility] [address] [place], [address] Chlamydia trachomatis rRNA d etection by probe and target amplification methodOrdered By: Sindhu Leblanc on 09-22-2024 C. trachomatis rRNA PEMA+probe Ql (Unsp spec) Negative Negative [facility] Eosinophil percentageOrdered By: Sindhu Leblanc on 09-22-2024 Eosinophils/100 WBC (Bld) 1.2 % Normal 0-5 [facility] Comment on above: Performed By: #### L 3890.6102, L3890.6301, L509.8002, L501.9985, L3890.6006, L100.0100, L509.4006, BTS #### [facility] [address] [place], [address] Erythrocyte distribution wid th ratioOrdered By: Sindhu Leblanc on 09-22-2024 Erythrocyte distribution width (RBC) [Ratio] 12.6 % Normal 11.6-14.6 [facility] Comment on above: Performed By: #### L 3890.6102, L3890.6301, L509.8002, L501.9985, L3890.6006, L100.0100, L509.4006, BTS #### [facility] [address] [place], [place], [address] Erythrocyte distribution wid th standard deviationOrdered By: Sindhu Leblanc on 09-22-2024 Erythrocyte distribution width (RBC) [Entitic vol] 40.9 fL 35.1-43.9 [facility] Erythrocyte distribution width (RBC) [Ratio] 40.9 fl 35.1-43.9 [facility] HBV surface Ag Ql (S)Ordered By: Sindhu Leblanc on 09-22-2024 Hepatitis B Surface Antigen Non-Reactive Nonreactive [facility] Comment on above: Reactive: Presumptiv e evidence of HBV. Repeatedly reactive samples must be confirmed using a neutralization test ([employer] HBsAg Confirmatory Test)Non-Reactive: HBsAg not detected; does not exclude the possibility of exposure to HBV Hemoglobin A1c percentageOrd ered By: Sindhu Leblanc on 09-22-2024 HbA1c (Bld) [Mass fraction] 5.4 % Low <=5.6 [facility] Comment on above: Performed By: #### L 3890.6102, L3890.6301, L509.8002, L501.9985, L3890.6006, L100.0100, L509.4006, BTS ####[facility] [address] [place], [place], [address] Hemoglobin measurementOrdere d By: Sindhu Leblanc on 09-22-2024 Hemoglobin (Bld) [Mass/Vol] 14.0 g/dL Normal 12.0-15.0 [facility] Comment on above: Performed By: #### L 3890.6102, L3890.6301, L509.8002, L501.9985, L3890.6006, L100.0100, L509.4006, BTS #### [facility] [address] [place], [address] Hepatitis C antibodyOrdered By: Sindhu Leblanc on 09-22-2024 Hepatitis C Antibody Non-Reactive Nonreactive [facility] Comment on above: Reactive: Presumptiv e evidence of antibodies to HCV. Follow CDC recommendations for supplemental testing.Non-Reactive: Antibodies to HCV were not detected; does not exclude the possibility of exposure to HCVReactive Results are presumptive evidence of antibodies to HCV. Follow CDC recommendations for supplemental testing.Order confirmation testing: HCV Quant by PCR testing - HCVPCR #[id number] Non Reactive: < 0.8 Equivocal: >/= 0.8 to < 1.0 Reactive: >/= 1.0The CDC requires that a reactive/equivocal HCV antibody result be sent out for confirmation. HCV Quant by PCR testing. Immature granulocytes/100 WB C Auto (Bld)Ordered By: Sindhu Leblanc on 09-22-2024 Immature granulocytes/100 WBC (Bld) 0.400 % 0.0-0.9 [facility] Comment on above: IG% - Immature Granu locytes (promyelocytes, myelocytes and metamyelocytes) > 1% indicates that a LEFT SHIFT is Present. L3890.6006on 09-22-2024 HIV Non-Reactive Normal Nonreactive [facility] Comment on above: Result Comment: Non- Reactive Reactive Repeatedly reactive samples must be confirmed according to CDC recommended confirmatory algorithms. The subresults for either HIVAG or AHIV can be used as an aid in the selection of the confirmation algorithm for reactive samples. Send out specimens with Reactive results to [facility] for confirmation. Order the HIV antibody detection and differentiation: lc#[id number] Performed By: #### L 3890.6102, L3890.6301, L509.8002, L501.9985, L3890.6006, L100.0100, L509.4006, BTS ####[facility] [address] [place], [place], [address] L3890.6102on 09-22-2024 HEP B Surf Ag Non-Reactive Normal Nonreactive [facility] Comment on above: Result Comment: Reac tive: Presumptive evidence of HBV. Repeatedly reactive samples must be confirmed using a neutralization test ([employer] HBsAg Confirmatory Test) Non-Reactive: HBsAg not detected; does not exclude the possibility of exposure to HBV Performed By: #### L 3890.6102, L3890.6301, L509.8002, L501.9985, L3890.6006, L100.0100, L509.4006, BTS ####[facility] [address] [facility] [place], [address] L3890.6301on 09-22-2024 Hepatitis C Ab Non-Reactive Normal Nonreactive [facility] Comment on above: Result Comment: Reac tive: Presumptive evidence of antibodies to HCV. Follow CDC recommendations for supplemental testing. Non-Reactive: Antibodies to HCV were not detected; does not exclude the possibility of exposure to HCV Reactive Results are presumptive evidence of antibodies to HCV. Follow CDC recommendations for supplemental testing. Order confirmation testing: HCV Quant by PCR testing - HCVPCR #[id number] Non Reactive: < 0.8 Equivocal: >/= 0.8 to < 1.0 Reactive: >/= 1.0 The CDC requires that a reactive/equivocal HCV antibody result be sent out for confirmation. HCV Quant by PCR testing. Performed By: #### L 3890.6102, L3890.6301, L509.8002, L501.9985, L3890.6006, L100.0100, L509.4006, BTS ####[facility] [address] [facility] [place], [address] L509.4006on 09-22-2024 Rubella IgG REAC Normal Nonreactive [facility] Comment on above: Result Comment: Anti body Result: Interpretation Non-Reactive: Non-Immune Reactive: Immune The following results were obtained with the [employer] Rubella IgG assay. Results from assays of other manufacturers cannot be used interchangeably. Performed By: #### L 3890.6102, L3890.6301, L509.8002, L501.9985, L3890.6006, L100.0100, L509.4006, BTS ####[facility] [address] [facility] [place], [address] L509.8002on 03-21-2025 Syphilis Abs Non-Reactive Normal Nonreactive [facility] Comment on above: Performed By: #### L 3890.6102, L3890.6301, L509.8002, L501.9985, L3890.6006, L100.0100, L509.4006, BTS ####[facility] [address] [place], [address] Laboratory - Microbiology an d Antimicrobial susceptibilityOrdered By: Sindhu Leblanc on 09-22-2024 HBV surface Ag Ql (S) Non-Reactive Nonreactive [facility] Comment on above: Reactive: Presumptiv e evidence of HBV. Repeatedly reactive samples must be confirmed using a neutralization test ([employer] HBsAg Confirmatory Test)Non-Reactive: HBsAg not detected; does not exclude the possibility of exposure to HBV Lymphocytes Auto (Unsp spec) [#/Vol]Ordered By: Sindhu Leblanc on 09-22-2024 Lymphocytes (Bld) [#/Vol] 2.44 10*3/uL 0.83-4.51 [facility] MCV (mean corpuscular volume ) determinationOrdered By: Sindhu Leblanc on 09-22-2024 MCV (RBC) [Entitic vol] 88.9 fL Normal 81-99 [facility] Comment on above: Performed By: #### L 3890.6102, L3890.6301, L509.8002, L501.9985, L3890.6006, L100.0100, L509.4006, BTS #### [facility] [address] [place], [place], [address] Mean corpuscular hemoglobin (MCH) determinationOrdered By: Sindhu Leblanc on 09-22-2024 MCH (RBC) [Entitic mass] 30.6 pg Normal 27.0-32.0 [facility] Comment on above: Performed By: #### L 3890.6102, L3890.6301, L509.8002, L501.9985, L3890.6006, L100.0100, L509.4006, BTS #### [facility] [address] [place], [place], [address] Mean corpuscular hemoglobin concentration (MCHC) determinationOrdered By: Sindhu Leblanc on 09-22-2024 MCHC (RBC) [Mass/Vol] 34.4 g/dL Normal 32-36 [facility] Comment on above: Performed By: #### L 3890.6102, L3890.6301, L509.8002, L501.9985, L3890.6006, L100.0100, L509.4006, BTS #### [facility] [address] [place], [place], [address] Mean platelet volume determi nationOrdered By: Sindhu Leblanc on 09-22-2024 Platelet mean volume (Bld) [Entitic vol] 10.3 fL Normal 6.2-12.0 [facility] Comment on above: Performed By: #### L 3890.6102, L3890.6301, L509.8002, L501.9985, L3890.6006, L100.0100, L509.4006, BTS #### [facility] [address] [place], [address] Monocyte percentageOrdered B y: Sindhu Leblanc on 09-22-2024 Monocytes/100 WBC (Bld) 6.5 % Normal 0-10 [facility] Comment on above: Performed By: #### L 3890.6102, L3890.6301, L509.8002, L501.9985, L3890.6006, L100.0100, L509.4006, BTS #### [facility] [address] [place], [address] Neisseria gonorrhoeae nuclei c acid detection by amplified probe techniqueOrdered By: Sindhu Leblanc on 09-22-2024 N. gonorrhoeae DNA PEMA+probe Ql (Unsp spec) Negative Negative [facility] Comment on above: Performed at: =[facility] [place] [address] [id number] Director: Josefina Gómez MD, Phone: [phone] Neutrophil percentageOrdered By: Sindhu Leblanc on 09-22-2024 Neutrophils/100 WBC (Bld) 69.6 % Normal 47-70 [facility] Comment on above: Performed By: #### L 3890.6102, L3890.6301, L509.8002, L501.9985, L3890.6006, L100.0100, L509.4006, BTS #### [facility] [address] [place], [address] No Panel InformationOrdered By: Sindhu Leblanc on 09-22-2024 HIV (1&2) Antibody Non-Reactive Nonreactive [facility] Comment on above: Non-ReactiveReactive Repeatedly reactive samples must be confirmed according to CDC recommended confirmatory algorithms. The subresults for either HIVAG or AHIV can be used as an aid in the selection of the confirmation algorithm for reactive samples.Send out specimens with Reactive results to [facility] for confirmation.Order the HIV antibody detection and differentiation: #[id number] Nucleated red blood cell per centageOrdered By: Sindhu Leblanc on 09-22-2024 Nucleated RBC/100 WBC (Bld) [Ratio] 0 % 0-5 [facility] Podiatric Medicine Doctor Office Visit Reporton 09-22-2024 Podiatric Medicine Doctor Office Visit Report [facility]'s [address], [address] [place] [address] OFFICE VISIT Date of Service: 09/22/24 MR#: [id number] Acct: [id number] Name: ACNDI MOYA Rep #: [id number] : 1990 Provider: POPEYE Huber ams Age/Sex: 34/F [place] [facility] [place]: Signed Intake Vital Signs 10/08/23 11:41 [...] H istory tablet Last Menstrual Period: 07/21/24 [facility] [place] Medical History Vaginal after Blood clotting disorder [...] No current occupational status: unemployed current occupation: [employer] current occupational exposures/hazards: No pets and [...] physical activity do you participate in: none neftaly/yazidism: Voodoo seatbelt use: always do you feel safe at home: Yes 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 (more content not included)... Normal [facility] Platelet countOrdered By: Nic Leblanc on 09-22-2024 Platelets (Bld) [#/Vol] 356 10*3/uL Normal 150-450 [facility] Comment on above: Performed By: #### L 3890.6102, L3890.6301, L509.8002, L501.9985, L3890.6006, L100.0100, L509.4006, BTS #### [facility] [address] [place], [place], [address] Rubella immune status determ ination by IgG antibody assayOrdered By: Sindhu Leblanc on 09-22-2024 Rubella IgG Antibody REAC Nonreactive [facility] Comment on above: Antibody Result: Int erpretationNon-Reactive: Non-ImmuneReactive: ImmuneThe following results were obtained with the [employer] Rubella IgG assay. Results from assays of other manufacturers cannot be used interchangeably. T. pallidum abOrdered By: Nic Leblanc on 09-22-2024 Syphilis Total Antibody Non-Reactive Nonreactiv e [facility] Type AND Screenon 09-22-2024 Ab SCREEN GEL Negative Normal [facility] Comment on above: Order Comment: PN Performed By: #### L 3890.6102, L3890.6301, L509.8002, L501.9985, L3890.6006, L100.0100, L509.4006, BTS ####[facility] [address] [facility]. [place], [place], [id number] Urine cultureOrdered By: Jose Cruz Leblanc on 09-22-2024 Bacteria identified Cx Nom (U) Positive Abnormal [facility] White blood cell (WBC) count Ordered By: Sindhu Leblanc on 09-22-2024 WBC (Bld) [#/Vol] 11.2 10*3/uL High 4.4-11.0 [facility] Comment on above: Performed By: #### L 3890.6102, L3890.6301, L509.8002, L501.9985, L3890.6006, L100.0100, L509.4006, BTS #### [facility] [address] [place], [place], [id number] Absolute lymphocyte countOrd ered By: Roro Troy on 08-21-2023 Lymphocytes Auto (Unsp spec) [#/Vol] 3.32 10*3/uL 0.83-4.51 [facility] Automated lymphocyte count a s percentage of total leukocytesOrdered By: Roro Troy on 08-21-2023 Lymphocytes/100 WBC Auto (Unsp spec) 22.1 % 19-41 [facility] Basophil percentageOrdered B y: Roro Troy on 08-21-2023 Basophils/100 WBC (Bld) 0.5 % 0-1 [facility] Eosinophils/100 WBC (Bld) 1.3 % 0-5 [facility] Hemoglobin (Bld) [Mass/Vol] 11.0 g/dL 12.0-15.0 [facility] Monocytes/100 WBC (Bld) 6.7 % 0-10 [facility] Neutrophils (Bld) [#/Vol] 10.3 10*3/uL 2.0-7.7 [facility] Neutrophils/100 WBC (Bld) 68.5 % 47-70 [facility] WBC (Bld) [#/Vol] 15.0 10*3/uL 4.4-11.0 [facility] Determination of erythrocyte mean corpuscular volume (MCV)Ordered By: Roro Troy on 08-21-2023 MCV (RBC) [Entitic vol] 81.3 fL 81-99 [facility] Erythrocyte distribution wid th ratioOrdered By: Roro Troy on 08-21-2023 Erythrocyte distribution width (RBC) [Ratio] 13.6 % 11.6-14.6 [facility] Erythrocyte distribution wid th standard deviationOrdered By: Roro Troy on 08-21-2023 Erythrocyte distribution width (RBC) [Entitic vol] 40.1 fL 35.1-43.9 [facility] Hematocrit Auto (Bld) [Volum e fraction]Ordered By: Roro Troy on 08-21-2023 Hematocrit (Bld) [Volume fraction] 34.4 % 37-47 [facility] Immature granulocytes/100 WB C Auto (Bld)Ordered By: Roro Troy on 08-21-2023 Immature granulocytes/100 WBC (Bld) 0.900 % 0.0-0.9 [facility] Comment on above: IG% - Immature Granu locytes (promyelocytes, myelocytes and metamyelocytes) > 1% indicates that a LEFT SHIFT is Present. Laboratory - Hematology and Cell countsOrdered By: Roro Troy on 08-21-2023 MCH (RBC) [Entitic mass] 26.0 pg 27.0-32.0 [facility] MCHC (RBC) [Mass/Vol] 32.0 g/dL 32-36 [facility] Nucleated RBC/100 WBC (Bld) [Ratio] 0 % 0-5 [facility] Platelet mean volume (Bld) [Entitic vol] 10.4 fL 6.2-12.0 [facility] Platelets (Bld) [#/Vol] 264 10*3/uL 150-450 [facility] RBC Auto (Bld) [#/Vol]Ordere d By: Roro Troy on 08-21-2023 RBC (Bld) [#/Vol] 4.23 10*6/uL 4.2-5.4 [facility] Serum Treponema species anti body detectionOrdered By: Roro Troy on 08-21-2023 Treponema sp Ab Ql (S) Non-Reactive [facility] Comment on above: qc ok Laboratory - Chemistry and C hemistry - challengeon 08-13-2023 Glucose Ql (U) Negative [facility] Laboratory - Urinalysison Protein Ql (U) Negative [facility] Laboratory - Chemistry and C hemistry - challengeon 08-06-2023 Glucose Ql (U) Negative [facility] Laboratory - Urinalysison Protein Ql (U) Negative [facility] Laboratory - Chemistry and C hemistry - challengeon 07-30-2023 Glucose Ql (U) Negative [facility] Laboratory - Urinalysison Protein Ql (U) Negative [facility] Laboratory - Chemistry and C hemistry - challengeon 07-16-2023 Glucose Ql (U) Negative [facility] Laboratory - Urinalysison Protein Ql (U) Negative [facility] Laboratory - Chemistry and C hemistry - challengeon 07-02-2023 Glucose Ql (U) Negative [facility] Laboratory - Urinalysison Protein Ql (U) Negative [facility] Laboratory - Chemistry and C hemistry - challengeon 06-14-2023 Glucose Ql (U) Negative [facility] Laboratory - Urinalysison Protein Ql (U) Negative [facility] Absolute lymphocyte countOrd ered By: Roro Troy on 06-04-2023 Lymphocytes Auto (Unsp spec) [#/Vol] 2.87 10*3/uL 0.83-4.51 [facility] Basophil percentageOrdered B y: Roro Troy on 06-04-2023 Basophils/100 WBC (Bld) 0.4 % 0-1 [facility] Eosinophils/100 WBC (Bld) 1.7 % 0-5 [facility] Neutrophils (Bld) [#/Vol] 9.6 10*3/uL 2.0-7.7 [facility] Neutrophils/100 WBC (Bld) 69.6 % 47-70 [facility] WBC (Bld) [#/Vol] 13.8 10*3/uL 4.4-11.0 [facility] Blood erythrocytes count (nu mber/volume)Ordered By: Roro Troy on 06-04-2023 RBC (Bld) [#/Vol] 3.55 10*6/uL 4.2-5.4 [facility] Blood hemoglobin measurement (mass/volume)Ordered By: Roro Troy on 06-04-2023 Hemoglobin (Bld) [Mass/Vol] 11.1 g/dL 12.0-15.0 [facility] Blood lymphocytes/100 leukoc ytesOrdered By: Roro Troy on 06-04-2023 Lymphocytes/100 WBC (Bld) 20.8 % 19-41 [facility] Blood monocytes/100 leukocyt esOrdered By: Roro Troy on 06-04-2023 Monocytes/100 WBC (Bld) 6.1 % 0-10 [facility] Blood platelet mean volumeOr dered By: Roro Troy on 06-04-2023 Platelet mean volume (Bld) [Entitic vol] 9.6 fL 6.2-12.0 [facility] Determination of erythrocyte mean corpuscular volume (MCV)Ordered By: Roro Troy on 06-04-2023 MCV (RBC) [Entitic vol] 93.0 fL 81-99 [facility] Gestational diabetes screen 1-hour screen with 50g oral glucose loadOrdered By: Roro Troy on 06-04-2023 Glucose 1 Hr post 50 g glucose PO [Mass/Vol] 102 mg/dL 70-140 [facility] HIV 1 and HIV-2 antibody ass ay with HIV-1 p24 antigen detectionOrdered By: Priscilla Sidhu on 06-04-2023 HIV 1+2 Ab+HIV1 p24 Ag IA Ql Non-Reactive Nonreactive [facility] Hematocrit Auto (Bld) [Volum e fraction]Ordered By: Roro Troy on 06-04-2023 Hematocrit (Bld) [Volume fraction] 33.0 % 37-47 [facility] Laboratory - Chemistry and C hemistry - challengeon 06-04-2023 Glucose Ql (U) Negative [facility] Laboratory - Hematology and Cell countsOrdered By: Roro Troy on 06-04-2023 Erythrocyte distribution width (RBC) [Entitic vol] 39.9 fL 35.1-43.9 [facility] Erythrocyte distribution width (RBC) [Ratio] 11.9 % 11.6-14.6 [facility] Immature granulocytes/100 WBC (Bld) 1.400 % 0.0-0.9 [facility] Comment on above: IG% - Immature Granu locytes (promyelocytes, myelocytes and metamyelocytes) > 1% indicates that a LEFT SHIFT is Present. MCH (RBC) [Entitic mass] 31.3 pg 27.0-32.0 [facility] Nucleated RBC/100 WBC (Bld) [Ratio] 0 % 0-5 [facility] Laboratory - Urinalysison Protein Ql (U) Negative [facility] MCHC Auto (RBC) [Mass/Vol]Or dered By: Roro Troy on 06-04-2023 MCHC (RBC) [Mass/Vol] 33.6 g/dL 32-36 [facility] Platelets bldOrdered By: Omid Troy on 06-04-2023 Platelets (Bld) [#/Vol] 284 10*3/uL 150-450 [facility] Serum Treponema species anti body detectionOrdered By: Priscilla Sidhu on 06-04-2023 Treponema sp Ab Ql (S) Non-Reactive [facility] Laboratory - Chemistry and C hemistry - challengeon 05-18-2023 Glucose Ql (U) Negative [facility] Laboratory - Urinalysison Protein Ql (U) Negative [facility] Neisseria gonorrhoeae genita l PCROrdered By: Roro Troy on 04-14-2023 N. gonorrhoeae DNA PEMA+probe Ql (Genital specimen) [facility] No Panel InformationOrdered By: Roro Tory on 04-14-2023 Chlamydia trachomatis (PCR) [facility] Neisseria gonorrhoeae genita l PCROrdered By: Roro Troy on 04-13-2023 N. gonorrhoeae DNA PEMA+probe Ql (Genital specimen) [facility] No Panel InformationOrdered By: Roro Troy on 04-13-2023 Chlamydia trachomatis (PCR) [facility] Laboratory - Chemistry and C hemistry - challengeon 03-17-2023 Glucose Ql (U) Negative [facility] Laboratory - Urinalysison Protein Ql (U) Negative [facility] Absolute lymphocyte countOrd ered By: Sindhu Leblanc on 03-09-2023 Lymphocytes Auto (Unsp spec) [#/Vol] 2.32 10*3/uL 0.83-4.51 [facility] Basophil percentageOrdered B y: Sindhu Leblanc on 03-09-2023 Basophils/100 WBC (Bld) 0.5 % 0-1 [facility] Eosinophils/100 WBC (Bld) 1.4 % 0-5 [facility] Neutrophils (Bld) [#/Vol] 8.0 10*3/uL 2.0-7.7 [facility] Neutrophils/100 WBC (Bld) 72.4 % 47-70 [facility] WBC (Bld) [#/Vol] 11.1 10*3/uL 4.4-11.0 [facility] Blood erythrocytes count (nu mber/volume)Ordered By: Sindhu Leblanc on 03-09-2023 RBC (Bld) [#/Vol] 3.91 10*6/uL 4.2-5.4 [facility] Blood hemoglobin measurement (mass/volume)Ordered By: Sindhu Leblanc on 03-09-2023 Hemoglobin (Bld) [Mass/Vol] 12.9 g/dL 12.0-15.0 [facility] Blood lymphocytes/100 leukoc ytesOrdered By: Sindhu Leblanc on 03-09-2023 Lymphocytes/100 WBC (Bld) 20.9 % 19-41 [facility] Blood monocytes/100 leukocyt esOrdered By: Sindhu Leblanc on 03-09-2023 Monocytes/100 WBC (Bld) 4.3 % 0-10 [facility] Blood platelet mean volumeOr dered By: Sindhu Leblanc on 03-09-2023 Platelet mean volume (Bld) [Entitic vol] 9.8 fL 6.2-12.0 [facility] Determination of erythrocyte mean corpuscular volume (MCV)Ordered By: Sindhu Leblanc on 03-09-2023 MCV (RBC) [Entitic vol] 91.8 fL 81-99 [facility] Gestational diabetes screen 1-hour screen with 50g oral glucose loadOrdered By: Sindhu Leblanc on 03-09-2023 Glucose 1 Hr post 50 g glucose PO [Mass/Vol] 116 mg/dL 70-140 [facility] HIV 1 and HIV-2 antibody ass ay with HIV-1 p24 antigen detectionOrdered By: Sindhu Leblanc on 03-09-2023 HIV 1+2 Ab+HIV1 p24 Ag IA Ql Non-Reactive Nonreactive [facility] Hematocrit Auto (Bld) [Volum e fraction]Ordered By: Sindhu Leblanc on 03-09-2023 Hematocrit (Bld) [Volume fraction] 35.9 % 37-47 [facility] Laboratory - Hematology and Cell countsOrdered By: Sindhu Leblanc on 03-09-2023 Erythrocyte distribution width (RBC) [Entitic vol] 41.1 fL 35.1-43.9 [facility] Erythrocyte distribution width (RBC) [Ratio] 12.5 % 11.6-14.6 [facility] Immature granulocytes/100 WBC (Bld) 0.500 % 0.0-0.9 [facility] Comment on above: IG% - Immature Granu locytes (promyelocytes, myelocytes and metamyelocytes) > 1% indicates that a LEFT SHIFT is Present. MCH (RBC) [Entitic mass] 33.0 pg 27.0-32.0 [facility] Nucleated RBC/100 WBC (Bld) [Ratio] 0 % 0-5 [facility] MCHC Auto (RBC) [Mass/Vol]Or dered By: Sindhu Leblanc on 03-09-2023 MCHC (RBC) [Mass/Vol] 35.9 g/dL 32-36 [facility] No Panel InformationOrdered By: Sindhu Leblanc on 03-09-2023 Hepatitis B Surface Antigen Non-Reactive Nonreactive [facility] Hepatitis C Antibody Non-Reactive Nonreactive [facility] Comment on above: Non Reactive: < 0.8 Equivocal: >/= 0.8 to < 1.0 Reactive: >/= 1.0The CDC recommends that a reactive/equivocal HCV antibody result be followed up by the HCV Nucleic Acid Amplificationtest ([id number]) Rubella IgG Antibody Reactive Nonreactive [facility] Comment on above: Antibody Results Int erpretation of Immune Status Non Reactive Presumed Non-Immune Equivocal Equivocal Reactive Presumed Immune Platelets bldOrdered By: Jose Cruz Leblanc on 03-09-2023 Platelets (Bld) [#/Vol] 270 10*3/uL 150-450 [facility] Serum Treponema species anti body detectionOrdered By: Sindhu Leblanc on 03-09-2023 Treponema sp Ab Ql (S) Non-Reactive [facility] Serum Varicella zoster virus IgG antibody assay by immunoassay (units/volume)Ordered By: Sindhu Leblanc on 03-09-2023 VZV IgG IA Qn (S) < 135 index Immune >165 [facility] Comment on above: Negative <135 Equivo dimitris 135 - 165 Positive >165A positive result generally indicates exposure to thepathogen or administration of specific immunoglobulins,but it is not indication of active infection or stageof disease.Performed at: - [facility] [id number] Director: Kwan Durbin PhD, Phone: [phone] Laboratory - Chemistry and C hemistry - challengeon 02-19-2023 Glucose Ql (U) Negative [facility] Laboratory - Urinalysison Protein Ql (U) Negative [facility] Basophil percentageOrdered B y: Sindhu Leblanc on 01-21-2023 Basophil percentage 0 SEEN /hpf 0-5 [facility] Bilirubin Test strip Ql (U)O rdered By: Sindhu Leblanc on 01-21-2023 Bilirubin Ql (U) Negative Negative [facility] Chlamydia trachomatis rRNA d etection by probe and target amplification methodOrdered By: Sindhu Leblanc on 01-21-2023 C. trachomatis rRNA PEMA+probe Ql (Unsp spec) Negative Negative [facility] Culture, urineOrdered By: Nic Leblanc on 01-21-2023 Bacteria identified Cx Nom (U) Streptococcus agalactiae (B) [facility] Bacteria identified Cx Nom (U) Positive [facility] Ketones Test strip Ql (U)Ord ered By: Sindhu Leblanc on 01-21-2023 Ketones Ql (U) Negative Negative [facility] Laboratory - Chemistry and C hemistry - challengeon 01-21-2023 Glucose Ql (U) Negative [facility] Laboratory - Microbiology an d Antimicrobial susceptibilityOrdered By: Sindhu Leblanc on 01-21-2023 N. gonorrhoeae DNA PEMA+probe Ql (Unsp spec) Negative Negative [facility] Comment on above: Performed at: =[facility] [address] [id number] Director: Josefina Gómez MD, Phone: [phone] Laboratory - Urinalysison Protein Ql (U) Negative [facility] Mucus LM Ql (Urine sed)Order ed By: Sindhu Leblanc on 01-21-2023 Mucus Ql (Urine sed) 0 SEEN /hpf [facility] Nitrite Test strip Ql (U)Ord ered By: Sindhu Leblanc on 01-21-2023 Nitrite Ql (U) Negative Negative [facility] Protein Test strip Ql (U)Ord ered By: Sindhu Leblanc on 01-21-2023 Protein Ql (U) Negative Negative [facility] Squamous epithelial cells de tection in urine sediment by light microscopyOrdered By: Sindhu Leblanc on 01-21-2023 Epithelial cells.squamous LM Ql (Urine sed) 0-5 SEEN /hpf 5-10 [facility] Urine blood detectionOrdered By: Sindhu Leblanc on 01-21-2023 RBC Ql (U) Negative Negative [facility] RBC Ql (U) 0 SEEN /hpf 0-5 [facility] Urine clarityOrdered By: Jose Cruz Leblanc on 01-21-2023 Clarity (U) Sl. Cloudy Clear [facility] Urine color determinationOrd ered By: Sindhu Leblanc on 01-21-2023 Color (U) Yellow Yellow [facility] Urine glucose detectionOrder ed By: Sindhu Leblanc on 01-21-2023 Glucose Ql (U) Normal mg/dl Normal [facility] Urine leukocyte esterase det ection by dipstickOrdered By: Sindhu Leblanc on 01-21-2023 Leukocyte esterase Test strip Ql (U) Negative Negative [facility] Urine pHOrdered By: Sindhu ferrara on 01-21-2023 pH (U) 6.0 [pH] 5.0 - 8.0 [facility] Urine sediment bacteria coun t by microscopy (number/high power field)Ordered By: Sindhu Leblanc on 01-21-2023 Bacteria LM.HPF (Urine sed) [#/Area] 0 /[HPF] None Seen [facility] Urine specific gravity measu rementOrdered By: Sindhu Lbelanc on 01-21-2023 Specific gravity (U) [Rel density] 1.025 1.002-1.030 [facility] Urobilinogen Auto test strip Ql (U)Ordered By: Sindhu Leblanc on 01-21-2023 Urobilinogen Ql (U) Normal mg/dl Normal [facility] Serum or plasma choriogonado tropin detectionOrdered By: Renetta iHnojosa on 10-05-2022 HCG ( test) Ql < 1 mIU/mL <4 [facility] Comment on above: hCG levels with Gest ational AgeGestational Age hCG mIU/mL (IU/L)0.2 - 1 week 5 - 501-2 weeks 50 - 5002-3 weeks 100 - 38440-4 weeks 500 - 807168-2 weeks 1000 - 504182-0 weeks 62318 - 100,0006-8 weeks 79530 - 200,0002-3 months 55830 - 100,000 Serum or plasma choriogonado tropin detectionOrdered By: Dr. Sidhu on 09-24-2022 HCG ( test) Ql 7 mIU/mL <4 [facility] Serum or plasma choriogonado tropin detectionOrdered By: Dr. Sidhu on 09-18-2022 HCG ( test) Ql 196 mIU/mL <4 [facility] Comment on above: hCG levels with Gest ational AgeGestational Age hCG mIU/mL (IU/L)0.2 - 1 week 5 - 501-2 weeks 50 - 5002-3 weeks 100 - 85072-8 weeks 500 - 868120-6 weeks 1000 - 682968-8 weeks 74950 - 100,0006-8 weeks 86931 - 200,0002-3 months 79081 - 100,000 Serum or plasma choriogonado tropin detectionOrdered By: Dr. Sidhu on 09-16-2022 HCG ( test) Ql 1017 mIU/mL <4 [facility] Comment on above: hCG levels with Gest ational AgeGestational Age hCG mIU/mL (IU/L)0.2 - 1 week 5 - 501-2 weeks 50 - 5002-3 weeks 100 - 63721-2 weeks 500 - 128810-3 weeks 1000 - 577664-2 weeks 78767 - 100,0006-8 weeks 01752 - 200,0002-3 months 09054 - 100,000 Laboratory - Cytologyon 08-05 Cytology report Cyto stain.thin prep Doc (Cvx/Vag) [facility] Work Phone: TEST DATA DEVELOPER - Office Visiton 08-05 TEST DATA DEVELOPER - Office Visit Diagnoses/Problems Assessed Encounter for Papanicolaou smear of cervix (V76.2) (Z12.4) Pap test, as part of routine gynecological examination (V76.2) (Z01.419) 08/05/2020: ASC-US, HPV negative Heterozygous factor V Leiden mutation (289.81) (D68.51) 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, 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; Status:In Progress - Specimen/Data Collected,Retrospective Authorization; Done: [id number] Last Menstrual Period (LMP): : 08/13/2021 PAP [...] Tablet Vitals Vital Signs Recorded: 20Aug2021 01:58PM Ihhyvuermpl89.8 F Gpferxfz564 Mrdxibdkj69 Height5 ft 4 in Pdezpq80.2 kg BMI Xagmgqfwqz30.62 kg/m2 BSA Calculated1.91 Tobacco Useb) No [id number] Physical Exam PHYSICAL EXAMINATION: Well-developed, well nourished, [...] Aug 20 2021 2:16PM EST (Author) Normal [facility] Tobacco Screening.on Last menstrual period start date 13Aug2021 [facility] Work Phone: Tobacco use status CP b) No [facility] Work Phone: TEST DATA DEVELOPER - Visiton 03-04-2021 TEST DATA DEVELOPER - Visit Chief Complaint Patient is here [...] Subcutaneous Solution; INJECT 40 MG Daily; Therapy: [id number] to (Evaluate:20Mar2021) Requested for: [id number]; Last Rx:[id number] Ordered Rx By: Tang Rios; Dispense: 30 Days ; #:30 X 0.4 ML Syringe; Refill: 0;For: Heterozygous factor V Leiden mutation, Status post section routine follow-up; SHERRI = N; Verified Transmission to [facility]; Last Updated By: [employer]; 02/18/2021 1:23:45 PM Vitamin 27-0.8 MG Oral Tablet; Therapy: (Recorded:10Jul2020) to Recorded Dispense: 0 Days ; #: Sufficient Tablet; Refill: 0;For: PMH: Positive urine test; SHERRI = N; Record; Last Updated By: Priscilla Adair; 07/10/2020 9:13:00 AM Vitals Vital Signs Recorded: [id number] 01:37PM Zflpafbimxg68.2 F Zqxmpypy463 Zhpruzjsr91 Height5 ft 4 in Odksgr57.1 kg BMI Awnzmngxrv59.2 kg/m2 BSA Calculated1.9 Physical Exam PHYSICAL EXAMINATION: [...] contraceptive pills; SHERRI = N; Sent To: [facility] Provider Impressions 1. checkup 2. Contraceptive counseling 3. Heterozygote for factor V Leiden Recommend progestin only control pill for contraception. Patient to return later in the year for her annual exam. Signatures Electronically signed by : Rj Hatch MD; Mar 04 2021 2:24PM EST (Author) Normal [email or web address] TEST DATA DEVELOPER - Post Opon TEST DATA DEVELOPER - Post Op Diagnoses/Problems Assessed Status post section routine follow-up (V24.2,V45.89) (Z39.2,Z98.891) Heterozygous factor V Leiden mutation (289.81) (D68.51) Orders Heterozygous factor V Leiden mutation, Status post section routine follow-up Start: Enoxaparin Sodium 40 MG/0.4ML Subcutaneous Solution; INJECT 40 MG Daily Follow-up visit in 1 month Outpatient Follow-up Status: Hold For - Scheduling Requested for: [id number] Provider Impressions 1)Post op-patient doing well. Pain [...] WANTS TO DISCUSS RESTRICTIONS. History of Present Nuccltx71-pzlo-hor presents for 2-week postop status post primary [...] Tablet Vitals Vital Signs Recorded: 18Feb2021 11:08AM Hcztenjprjr99.3 F Laxahcwy817 Ycxpjpwff62 Height5 ft 4 in Bgteag670 lb 3.2 oz BMI Btnmdbipkb73.96 kg/m2 BSA Calculated1.9 Physical Exam General: None [...] Feb 18 2021 1:15PM EST (Author) Normal [facility] Daily Progress Note - OB-Pos t-partumon 02-07-2021 Daily Progress Note - FS-Vqcb-azrsrb Current Stage: Stage: Post- Subjective Data: Post : Ambulate: Yes Flatus: Yes Tolerate Diet: Yes Lochia: Light : POD #2 Resting well. Breast-feeding. Objective Information: Objective Information: T PRBPSpO2 Value36.97007712/7298% Date/Time02/07 4:148 4:148 4:148 4:148 4:14 Range(36.6C [...] Last Updated: 07-Feb-2021 07:11 by Rj Hatch) [facility] Discharge Planning Wocn9sx 0 02-07-2021 Discharge Planning Note2 Discharge Planning: Anticipated Discharge Zprg29-Yrb-3556 Discharge Planning Date and Time: 02/07/21 1033 According to plan, patient discharged home with and infant Discharge instructions printed and reviewed. Teaching provided on new medications, self-care, signs and symptoms to report, and follow-up appointments. Patient verbalized understanding and denies any questions at time of discharge. Patient instructed to call provider with any additional questions after discharge. Signature: YOLANDA Quinnassistant finance director: Discharge Planning Assessment Dqpd38-Akn-2065 Nursing Checklist: Lines/Cathetersremoved/a ppropriate for next level of care Discharge Med Rec Reconciled with Mk Patient has Prescriptionsyes Transportation for Discharge Confirmedyes Follow up Reviewedyes Discharge Instructions Reviewed WithPatient, Significant Other Discharge Instructions Outcomeverbalize recall/understanding Discharge Instructions Review Completed with Patient/Family (diet, activity, pt instructions)yes Discharge Documentation: Discharge/Transfer Date/Poit33-Mua-4907 10:33 Discharge Modeambulatory Discharged Accompanied Byspouse Transportation Methodprivate car Final DispositionHome Electronic Signatures: Corine Ortega (RN) (Signed 07-Feb-2021 11:25) Authored: Discharge Planning, Assessment, Nursing Checklist, Discharge Documentation Last Updated: 07-Feb-2021 11:25 by Corine Ortega (RN) [facility] Discharge Jscdrir9rt 021 Discharge Profile2 Discharge Orders: Anticipated Discharge Date: Anticipated Discharge [id number]-2840 Problem List: Additional Dx: Status post delivery: [...] Medication Reconciliation and Orders Completedby Physician Reviewing Krantih Hatch MD at 07-Feb-2021 07:12:46 Other Clinician [...] to nearest emergency room. *Information obtained from [facility]: Save Your Life: Get Care for These POST- Warning Signs On Behalf on the [facility] Maternity Staff, Congratulations on your . [...] us a call. Also, please join our [facility] Support Group which meets the wednesday of every month at 10 am in the OB unit. No need to register. If you have any questions please call us at [phone]. Again, Congratulations! Warmest Regards, [facility]'s Maternity Staff Electronic Signatures: Rj Hatch) (Signed 07-Feb-2021 07:12) Authored: Discharge Orders, , Hospital Course (Home Care/Gold Form), Provider FINAL REVIEW of Orders, Gold Form - Pan Reclaim Processor Summary Corine Ortega (RN) (Signed 07-Feb-2021 08:58) Authored: Other Clinician Instructions Last Updated: 07-Feb-2021 08:58 by Corine Ortega (RN) [facility] Order Reconciliationon 02-07 Order Reconciliation Page 1 [...] required Benzocaine 20% - Menthol 0.5% Topical [place] (DERMOPLAST)DOSE = 1 application(s) Topical 4 Times [...] breakthrough painClinician Notes: Conditional Order: START AFTER PACKAGING LINE OPERATOR is discontinued. 04-Feb-2021 22:36 HYDROmorphone Injectable is [...] 60 m (more content not included)... Normal [facility] CBCon 02-06-2021 Erythrocyte distribution width (RBC) [Ratio] 13.3 % Normal 11.5 - 14.5 [facility] Comment on above: Performed By: #### C BC ####[address] [address] Hematocrit (Bld) [Volume fraction] 29.7 % Low 36.0 - 46.0 [facility] Comment on above: Performed By: #### C BC ####[address] [address] Hemoglobin (Bld) [Mass/Vol] 9.7 g/dL Low 12.0 - 16.0 [facility] Comment on above: Performed By: #### C BC ####[address] [address] MCHC (RBC) [Mass/Vol] 32.5 g/dL Normal 32.0 - 36.0 [facility] Comment on above: Performed By: #### C BC ####[address] [address] MCV (RBC) [Entitic vol] 89 fL Normal 80 - 100 [facility] Comment on above: Performed By: #### C BC ####[address] [address] Platelets (Bld) [#/Vol] 240 10*3/uL Normal 150 - 450 [facility] Comment on above: Performed By: #### C BC ####[address] [address] RBC 3.35 x10E12/L Low 4.00 - 5.20 [facility] Comment on above: Performed By: #### C BC ####[address] [address] WBC (Bld) [#/Vol] 16.3 10*3/uL High 4.4 - 11.3 [facility] Comment on above: Performed By: #### C BC ####[address] [address] Daily Progress Note - OB-Pos t-partumon 02-06-2021 Daily Progress Note - QW-Wtmy-ktwywp Current Stage: Stage: Post- Subjective Data: Post : Ambulate: Yes Flatus: Yes Tolerate Diet: Yes Lochia: Light : POD #1 Resting well. Breast-feeding. Objective Information: Objective Information: T PRBPSpO2 [id number]/6796% Date/Time02/06 4:118/5 4:118/5 4:118/5 4:118/5 4:11 Range(36.5C [...] Last Updated: 06-Feb-2021 07:24 by Rj Hatch) [facility] Laboratory - Hematology and Cell countson 02-06-2021 Erythrocyte distribution width (RBC) [Ratio] 13.3 % See Below [employer] Work Phone: Comment on above: Reference Range: 11. 5 - 14.5 Hematocrit (Bld) [Volume fraction] 29.7 % below low threshold See Below [employer] Work Phone: Comment on above: Reference Range: 36. 0 - 46.0 Hemoglobin (Bld) [Mass/Vol] 9.7 g/dL below low threshold See Below [facility] [employer] Work Phone: Comment on above: Reference Range: 12. 0 - 16.0 MCHC (RBC) [Mass/Vol] 32.5 g/dL See Below Wom [facility] Work Phone: Comment on above: Reference Range: 32. 0 - 36.0 MCV (RBC) [Entitic vol] 89 fL 80 - 100 W [facility] [employer] Work Phone: Platelets (Bld) [#/Vol] 240 10*3/uL 150 - 450 [facility] [employer] Work Phone: RBC (Bld) [#/Vol] 3.35 {x10E12/L} below low threshold See Below [facility] [employer] Work Phone: Comment on above: Reference Range: 4.0 0 - 5.20 WBC (Bld) [#/Vol] 16.3 10*3/uL above high threshold 4.4 - 11.3 [facility] [employer] Work Phone: ABO/RH GROUP TESTon 02-06-20 21 ABO TYPE O Normal [facility] Comment on above: Performed By: #### V ERAB #### [place] [address] RH TYPE Positive Normal [facility] Comment on above: Performed By: #### V ERAB #### [address] [address] CBCon 02-05-2021 Erythrocyte distribution width (RBC) [Ratio] 12.9 % Normal 11.5 - 14.5 [facility] Comment on above: Performed By: #### V ERAB #### [address] [address] Hematocrit (Bld) [Volume fraction] 31.5 % Low 36.0 - 46.0 [facility] Comment on above: Performed By: #### V ERAB #### [address] [address] Hemoglobin (Bld) [Mass/Vol] 10.3 g/dL Low 12.0 - 16.0 [facility] Comment on above: Performed By: #### V ERAB #### [address] [address] MCHC (RBC) [Mass/Vol] 32.8 g/dL Normal 32.0 - 36.0 [facility] Comment on above: Performed By: #### Nikolay ERAB #### [address] [address] MCV (RBC) [Entitic vol] 88 fL Normal 80 - 100 [facility] Comment on above: Performed By: #### V ERAB #### [address] [address] Platelets (Bld) [#/Vol] 259 10*3/uL Normal 150 - 450 [facility] Comment on above: Performed By: #### Nikolay ERAB #### [address] [address] RBC 3.57 x10E12/L Low 4.00 - 5.20 [facility] Comment on above: Performed By: #### V ERAB #### [address] [address] WBC (Bld) [#/Vol] 21.3 10*3/uL High 4.4 - 11.3 [facility] Comment on above: Performed By: #### V ERAB #### [address] [address] Daily Progress Note - OB-Pos t-partumon 02-05-2021 Daily Progress Note - OP-Knlj-htuftn Current Stage: Stage: Post- Subjective Data: Post : Ambulate: Yes Lochia: Light : POD #1/2 Resting well. Breast feeding. Objective Information: Objective Information: T PRBPSpO2 [id number]/7198% Date/Time02/05 5: 5:038/4 5:038/4 5:038/4 5:03 Range(36.5C [...] Last Updated: 05-Feb-2021 07:13 by Rj Hatch) [facility] Laboratory - Hematology and Cell countson 02-05-2021 Erythrocyte distribution width (RBC) [Ratio] 12.9 % See Below [employer] Work Phone: Comment on above: Reference Range: 11. 5 - 14.5 Hematocrit (Bld) [Volume fraction] 31.5 % below low threshold See Below [employer] Work Phone: Comment on above: Reference Range: 36. 0 - 46.0 Hemoglobin (Bld) [Mass/Vol] 10.3 g/dL below low threshold See Below [facility]alsHotalotCenterpoint Medical CenterMessageMe Work Phone: Comment on above: Reference Range: 12. 0 - 16.0 MCHC (RBC) [Mass/Vol] 32.8 g/dL See Below Wom encmari[facility] memorial hospitalWorldVizCenterpoint Medical CenterMessageMe Work Phone: Comment on above: Reference Range: 32. 0 - 36.0 MCV (RBC) [Entitic vol] 88 fL 80 - 100 W [facility] [employer] Work Phone: Platelets (Bld) [#/Vol] 259 10*3/uL 150 - 450 [facility]alsT[facility] [employer] Work Phone: RBC (Bld) [#/Vol] 3.57 {x10E12/L} below low threshold See Below [facility] [employer] Work Phone: Comment on above: Reference Range: 4.0 0 - 5.20 WBC (Bld) [#/Vol] 21.3 10*3/uL above high threshold 4.4 - 11.3 [facility]als[facility] [employer] Work Phone: REQUEST-LEUKOREDUCED RED AMPARO LSon 02-05-2021 REQUEST-LEUKOREDUCED RED CELLS ORDER RECD Normal [facility] Comment on above: Performed By: #### O MONORAIL CAR OPERATOR ####[place] [id number] Admission Risk Screen - OBon 02-04-2021 Admission [...] Learning Preferencesverbal instruction Cultural Considerationsnone Developmental Considerationsnone Presybeterian Considerationsnone Learning Assessment (Other Learner): Other learner [...] Spiritual Screen: Are there any cultural, spiritual, hinduism practices/values/needs that are important for us to knowno Depression Screen: During the past month, have you often been bothered by feeling down, depressed or hopelessno During the past month, have you often had little interest or pleasure in doing thingsno Have you had any thoughts of harming anyone elseno [place] Suicide: Risk Screen Not Applicable/Able to Answerable to be screened In the Past Month: Have you wished you were or could go to sleep and not wake upno In the Past Month: Have you had any actual thoughts of killing yourselfno Lifetime: Have you ever done, started to do, or prepared to do anything to end your lifeno [place] Suicide Risknegative Family Violence Screen: Are you [...] with underlying chronic conditions or reside in termite exterminator care facilitiesnone of these conditions Persons [...] Signatures: [place] (more content not included)... Normal [facility] CBCon 02-04-2021 Erythrocyte distribution width (RBC) [Ratio] 13.4 % Normal 11.5 - 14.5 [facility] Comment on above: Performed By: #### C BC ####[address] [address] Hematocrit (Bld) [Volume fraction] 35.8 % Low 36.0 - 46.0 [facility] Comment on above: Performed By: #### C BC ####[address] [address] Hemoglobin (Bld) [Mass/Vol] 11.9 g/dL Low 12.0 - 16.0 [facility] Comment on above: Performed By: #### C BC ####[address] [address] MCHC (RBC) [Mass/Vol] 33.2 g/dL Normal 32.0 - 36.0 [facility] Comment on above: Performed By: #### C BC ####[address] [address] MCV (RBC) [Entitic vol] 88 fL Normal 80 - 100 [facility] Comment on above: Performed By: #### C BC ####[address] [address] Platelets (Bld) [#/Vol] 295 10*3/uL Normal 150 - 450 [facility] Comment on above: Performed By: #### C BC ####[address] [address] RBC 4.08 x10E12/L Normal 4.00 - 5.20 [facility] Comment on above: Performed By: #### C BC ####[address] [address] WBC (Bld) [#/Vol] 11.7 10*3/uL High 4.4 - 11.3 [facility] Comment on above: Performed By: #### C BC ####[address] [address] Clinical Event Note-Labor No ryan 02-04-2021 Clinical [...] Last Updated: 04-Feb-2021 20:20 by Rj Hatch) [facility] Laboratory - Blood bankon ABO group Nom (Bld) O Apparent [facility]WorldVizCrest[facility] [employer] Work Phone: Rh immune globulin screen (Bld) [Interp] Positive [facility] Center[facility] [place] [address] [employer] Work Phone: ABO group Nom (Bld) O Apparent [facility]WorldVizCrest[facility] [employer] Work Phone: Blood group antibody screen Ql Negative STAT-DiagnosticaCrestwood Medical Center [employer] Work Phone: Rh immune globulin screen (Bld) [Interp] Positive [facility] CenterWorld[facility] [employer] Work Phone: Laboratory - Hematology and Cell countson 02-04-2021 Erythrocyte distribution width (RBC) [Ratio] 13.4 % See Below [facility]als[facility] [employer] Work Phone: Comment on above: Reference Range: 11. 5 - 14.5 Hematocrit (Bld) [Volume fraction] 35.8 % below low threshold See Below [facility]ost[facility] [employer] Work Phone: Comment on above: Reference Range: 36. 0 - 46.0 Hemoglobin (Bld) [Mass/Vol] 11.9 g/dL below low threshold See Below [facility]als[facility] [employer] Work Phone: Comment on above: Reference Range: 12. 0 - 16.0 MCHC (RBC) [Mass/Vol] 33.2 g/dL See Below Wom encareWorldVizCrestwood Medical Center [employer] Work Phone: Comment on above: Reference Range: 32. 0 - 36.0 MCV (RBC) [Entitic vol] 88 fL 80 - 100 W [facility] [employer] Work Phone: Platelets (Bld) [#/Vol] 295 10*3/uL 150 - 450 [facility]als[facility] [employer] Work Phone: RBC (Bld) [#/Vol] 4.08 {x10E12/L} See Below Wo Es [employer] Work Phone: Comment on above: Reference Range: 4.0 0 - 5.20 WBC (Bld) [#/Vol] 11.7 10*3/uL above high threshold 4.4 - 11.3 [facility] [employer] Work Phone: No Panel Informationon 02-04 ORDER RECD [facility] [employer] Work Phone: Order Reconciliationon 02-04 Order Reconciliation [...] all patient (more content not included)... Normal [facility] SYPHILIS SCREENING WITH REFL EXon 02-04-2021 SYPHILIS TOTAL AB Non-Reactive Normal NONREACTIVE [facility] Comment on above: Result Comment: No s ignificant level of Treponema pallidum antibody detected. Repeat testing in 2 to 4 weeks may be considered if early infection or incubating syphilis infection is suspected. Performed By: #### S YPHR #### [facility] [address] [place] [address] Lab Specimen Source Normal [facility] Comment on above: Performed By: #### S YPHR #### [place] [address] [place] [address] T. pallidum IgG+IgM IA Ql (S) Non-Reactive See Below STAT-DiagnosticaA [employer] Work Phone: Comment on above: SOURCE: Reference Ra nge: NONREACTIVENo significant level of Treponema pallidum antibody detected. Repeat testing in 2 to 4 weeks may be considered if early infection or incubating syphilis infection is suspected. TYPE + SCREENon 02-04-2021 ABO TYPE O Normal [facility] Comment on above: Performed By: #### T +S ####[address] [address] RH TYPE Positive Normal [facility] Comment on above: Performed By: #### T +S ####[address] [address] Coronavirus 2019 RNA by PCR, Screening Asymptomticon 02-01-2021 Coronavirus 2019 RNA by PCR, Screening Asymptomtic Not detected Normal See Below [facility] [employer] Work Phone: Comment on above: SOURCE: Nasal, [...] make patient management decisions.Fact sheet for providers: https://www.fda.gov/media/990734/downloadFact sheet for patients: https://www.fda.gov/media/002123/downloadThis test has received FDA Emergency Use Authorization (EUA) and has been verified by [facility] ([facility]). This test is only authorized for the duration of time that circumstances exist to justify the authorization of the emergency use of in vitro diagnostic tests for the detection of SARS-CoV-2 virus and/or diagnosis of COVID-19 infection under section 564(b)(1) of the Act, 21 U.S.C. 360bbb-3(b)(1), unless the authorization is terminated or revoked sooner. [facility] is certified under CLIA-88 as qualified to perform high complexity testing. Testing is performed in the [facility] laboratories located at [address] [place] [address]. No Panel Informationon 01-28 Normal [facility] [employer] Work Phone: Please click on the link to view the study images Normal [facility] 350 [employer] Work Phone: US AGE FOL-UP PER FETU Son 01-28-2021 US AGE FOL-UP PER FETUS Patient Name: CANDI MOYA STUDY: US AGE FOL-UP PER FETUS 01/28/2021 2:20 pm INDICATION: Growth. COMPARISON: Ultrasound dated 09/24/2020 ACCESSION NUMBER(S): [id number] ORDERING CLINICIAN: RJ HATCH TECHNIQUE: Routine ultrasound [...] evaluation. Electronically signed by: ZENA BALTAZAR MD [facility] GROUP B STREP SCREENon 01-14 GROUP B STREP SCREEN PATIENT: RUBI MOYA LOCATION: [facility] FRANKI#: [id number] : 88 AGE: SEX: F ORDERED BY: RJ HATCH SOURCE: VAGINAL COLLECTED: 01/14/21 08:51 ANTIBIOTICS AT [facility].: RECEIVED : 01/14/21 20:41 SITE: R E S U L T S GROUP B STREP SCREEN FINAL 01/16/21 10:56 NEGATIVE FOR GROUP B BETA STREP. [facility] Comment on above: Performed By: #### G BSCR ####[id number] [address] [id number] Laboratory - Microbiology an d Antimicrobial susceptibilityon 01-14-2021 Bacteria identified Aer cx Nom (Genital specimen) [facility] [place] [address] [place] Work Phone: GLUCOSE BARBARA,3HR PREGNANCYon 11-27-2020 Glucose [Mass/Vol] 113 mg/dL Normal <140 [facility] Comment on above: Performed By: #### G TTP3 #### [address] [address] Glucose [Mass/Vol] 124 mg/dL Normal <155 [facility] Comment on above: Performed By: #### G TTP3 #### [address] [address] Glucose [Mass/Vol] 133 mg/dL Normal <180 [facility] Comment on above: Performed By: #### G TTP3 #### [address] [address] Glucose [Mass/Vol] 74 mg/dL Normal <95 [facility] Comment on above: Performed By: #### G TTP3 #### [address] [address] INTERPRETATION SEE BELOW [facility] Comment on above: Result Comment: Diag nostics with glucose loading dose of 100 g. Reference values from [employer]. Diabetes Care 2015;38(Suppl.1):S8-S16. Performed By: #### G TTP3 #### [facility] [address] [place] [address] GLUCOSE-POCTon 11-27-2020 Glucose [Mass/Vol] 77 mg/dL Normal 74 - 99 [facility] Comment on above: Performed By: #### G YARELIS ####[place] [address] [place] [address] Laboratory - Chemistry and C hemistry - challengeon 11-27-2020 Glucose [Mass/Vol] 77 mg/dL 74 - 99 [facility] [place] Work Phone: No Panel Informationon 11-27 SEE BELOW [facility] [employer] Work Phone: Comment on above: Diagnostics with glu cose loading dose of 100 g. Reference values from [employer]. Diabetes Care 2015;38(Suppl.1):S8-S16. 124 mg/dL <155 [employer] [place] Work Phone: 133 mg/dL <180 [employer] [place] Work Phone: 74 mg/dL <95 [facility] [employer] Work Phone: 113 mg/dL <140 [facility]- [employer] Work Phone: CBC ANEMIA PANEL WITH REFLEX ,PREGNANCYon 11-13-2020 Erythrocyte distribution width (RBC) [Ratio] 12.0 % Normal 11.5 - 14.5 [facility] Comment on above: Performed By: #### V ERAB #### [facility] [address] [place] [address] Hematocrit (Bld) [Volume fraction] 37.5 % Normal 36.0 - 46.0 [facility] Comment on above: Performed By: #### V ERAB #### [facility] [address] [place] [address] Hemoglobin (Bld) [Mass/Vol] 12.6 g/dL Normal 12.0 - 16.0 [facility] Comment on above: Performed By: #### V ERAB #### [address] [address] MCHC (RBC) [Mass/Vol] 33.6 g/dL Normal 32.0 - 36.0 [facility] Comment on above: Performed By: #### V ERAB #### [address] [address] MCV (RBC) [Entitic vol] 95 fL Normal 80 - 100 [facility] Comment on above: Performed By: #### V ERAB #### [place] [id number] Platelets (Bld) [#/Vol] 287 10*3/uL Normal 150 - 450 [facility] Comment on above: Performed By: #### V ERAB #### [place] [id number] RBC 3.95 x10E12/L Low 4.00 - 5.20 [facility] Comment on above: Performed By: #### Nikolay ERAB #### [place] [address] REFLEX ADDED, ANEMIA PANEL NONE Normal [facility] Comment on above: Performed By: #### Nikolay ERAB #### [place] [id number] WBC (Bld) [#/Vol] 11.8 10*3/uL High 4.4 - 11.3 [facility] Comment on above: Performed By: #### V ERAB #### [place] [id number] HCT Canceled Normal [facility] Comment on above: Order Comment: TEST CBC ANEMIA PANEL WITH REFLEX, WAS CANCELLED, 11/13/2020 13:21wrong encounter. Performed By: #### A NEMI ####[place] [id number] [place] [address] HGB Canceled Normal [facility] Comment on above: Order Comment: TEST CBC ANEMIA PANEL WITH REFLEX, WAS CANCELLED, 11/13/2020 13:21wrong encounter. Performed By: #### A NEMI ####[place] [id number] [id number] MCHC Canceled [facility] Comment on above: Order Comment: TEST CBC ANEMIA PANEL WITH REFLEX, WAS CANCELLED, 11/13/2020 13:21wrong encounter. Performed By: #### A NEMI ####[address] [place] [address] MCV Canceled [facility] Comment on above: Order Comment: TEST CBC ANEMIA PANEL WITH REFLEX, WAS CANCELLED, 11/13/2020 13:21wrong encounter. Performed By: #### A NEMI ####[address] [id number] PLT Canceled [facility] Comment on above: Order Comment: TEST CBC ANEMIA PANEL WITH REFLEX, WAS CANCELLED, 11/13/2020 13:21wrong encounter. Performed By: #### A NEMI ####[address] [place] [address] RBC Canceled [facility] Comment on above: Order Comment: TEST CBC ANEMIA PANEL WITH REFLEX, WAS CANCELLED, 11/13/2020 13:21wrong encounter. Performed By: #### A NEMI ####[place] [id number] [place] [address] RDW-CV Canceled [facility] Comment on above: Order Comment: TEST CBC ANEMIA PANEL WITH REFLEX, WAS CANCELLED, 11/13/2020 13:21wrong encounter. Performed By: #### A NEMI ####[place], [place] [id number] [place] [address] REFLEX ADDED, ANEMIA PANEL Canceled Normal [facility] Comment on above: Order Comment: TEST CBC ANEMIA PANEL WITH REFLEX, WAS CANCELLED, 11/13/2020 13:21wrong encounter. Performed By: #### A NEMI ####[id number] [place] [address] WBC Canceled Normal [facility] Comment on above: Order Comment: TEST CBC ANEMIA PANEL WITH REFLEX, WAS CANCELLED, 11/13/2020 13:21wrong encounter. Performed By: #### A NEMI ####[address] [id number] [place] [address] GLUCOSE,1 HR SCREEN, PREGon 11-13-2020 Glucose [Mass/Vol] 173 mg/dL Abnormal <135 [facility] Comment on above: Result Comment: Diag nostic value with glucose loading dose of 50 g. Reference values from [employer]. Diabetes Care 2015;38(Suppl.1):S8-S16 Performed By: #### G LUS1 #### [address] [address] GLUCOSE,1 HR SCREEN, PREG Canceled Normal [facility] Comment on above: Order Comment: TEST GLUCOSE,1 HR SCREEN, PREG WAS CANCELLED, 11/13/2020 13:21 wrong encounter. Result Comment: Diag nostic value with glucose loading dose of 50 g. Reference values from [employer]. Diabetes Care 2015;38(Suppl.1):S8-S16 Performed By: #### G LUS1 #### [address] [address] GLUCOSE-POCTon 11-13-2020 Glucose [Mass/Vol] 70 mg/dL Low 74 - 99 [facility] Comment on above: Performed By: #### G YARELIS ####[address] [address] Glucose, 1 Hour Screen, Preg nancyon 11-13-2020 Glucose 1 Hr post 50 g glucose PO [Mass/Vol] 173 mg/dL Abnormal <135 [facility] Work Phone: Comment on above: Diagnostic value wit h glucose loading dose of 50 g. Reference values from [employer]. Diabetes Care 2015;38(Suppl.1):S8-S16 Laboratory - Chemistry and C hemistry - challengeon 11-13-2020 Glucose [Mass/Vol] 70 mg/dL below low threshold 74 - 99 [facility] Work Phone: Laboratory - Hematology and Cell countson 11-13-2020 Erythrocyte distribution width (RBC) [Ratio] 12.0 % See Below [employer] Work Phone: Comment on above: Reference Range: 11. 5 - 14.5 Hematocrit (Bld) [Volume fraction] 37.5 % See Below STAT-Diagnostica [place] Work Phone: Comment on above: Reference Range: 36. 0 - 46.0 Hemoglobin (Bld) [Mass/Vol] 12.6 g/dL See Below [employer] Work Phone: Comment on above: Reference Range: 12. 0 - 16.0 MCHC (RBC) [Mass/Vol] 33.6 g/dL See Below [facility]World[facility] [place] Work Phone: Comment on above: Reference Range: 32. 0 - 36.0 MCV (RBC) [Entitic vol] 95 fL 80 - 100 [facility] [place] Work Phone: Platelets (Bld) [#/Vol] 287 10*3/uL 150 - 450 [employer] Work Phone: RBC (Bld) [#/Vol] 3.95 {x10E12/L} below low threshold See Below [employer] Work Phone: Comment on above: Reference Range: 4.0 0 - 5.20 WBC (Bld) [#/Vol] 11.8 10*3/uL above high threshold 4.4 - 11.3 [facility] [employer] Work Phone: No Panel Informationon 11-13 NONE [facility] [place] [employer] Work Phone: US OB COMPLETEon 09-24-2020 US OB COMPLETE Patient Name: CANDI MOYA STUDY: US OB COMPLETE 09/24/2020 9:55 am INDICATION: DATES & ANATOMY EDC: 02/11/21. COMPARISON: None. ACCESSION NUMBER(S): [id number] ORDERING CLINICIAN: RJ HATCH TECHNIQUE: Routine ultrasound [...] Electronically signed by: ZENA BALTAZAR MD Normal [facility] FACTOR V LEIDENon 08-30-2020 FACTOR V LEIDEN HETEROZYGOUS Abnormal NORMAL [facility] Comment on above: Result Comment: . [...] analytical performance characteristics have been determined by [facility]. This test has not been cleared or approved by the FDA; however, the FDA has determined that such approval is not necessary. The [facility] is CAP accredited and certified under the Clinical Laboratory Improvement Amendments of 1988 (CLIA-88) as qualified to perform high complexity testing. Performed By: #### V ERAB #### [address] [address] TYPE + SCREENon 08-08-2020 ABO TYPE O Normal [facility] Comment on above: Order Comment: TEST TYPE + SCREEN WAS CANCELLED, 08/05/2020 11:17 DUPLICATE ORDER. Performed By: #### V ERAB #### [address] [address] HEPATITIS B SURFACE AGon HEP.B SURFACE AG Non-Reactive Normal NONREACTIVE [facility] Comment on above: Result Comment: Biot in interference may cause falsely decreased results. Patients taking a Biotin dose of up to 5 mg/day should refrain from taking Biotin for 24 hours before sample collection. Providers may contact their local laboratory for further information. Performed By: #### V ERAB #### [facility] [address] [place] [address] HEPATITIS C ABon 08-07-2020 HEPATITIS C AB Non-Reactive Normal NONREACTIVE [facility] Comment on above: Result Comment: Resu lts from patients taking biotin supplements or receiving high-dose biotin therapy should be interpreted with caution due to possible interference with this test. Providers may contact their local laboratory for further information. Performed By: #### H CVAB ####[id number] [place] [address] HIV 1/2 ANTIGEN/ANTIBODY SCR EEN WITH REFLEX TO CONFIRMATIONon 08-07-2020 HIV 1/2 AG/AB SCREEN Non-Reactive Normal NONREACTIVE [facility] Comment on above: Result Comment: HIV Ag/Ab screen is performed using the Siemens [employer] HIV Ag/Ab Combo assay which detects the presence of HIV p24 antigen as well as antibodies to HIV-1 (Group M and O) and HIV-2. Performed By: #### V ERAB #### [address] [address] RUBELLA IGG ABon 08-07-2020 RUBELLA IGG AB Positive Normal [facility] Comment on above: Result Comment: INTE RPRETATIVE [...] assays. Performed By: #### V ERAB #### [address] [address] SYPHILIS SCREENING WITH REFL EXon 08-07-2020 SYPHILIS TOTAL AB Non-Reactive Normal NONREACTIVE [facility] Comment on above: Result Comment: No s ignificant level of Treponema pallidum antibody detected. Repeat testing in 2 to 4 weeks may be considered if early infection or incubating syphilis infection is suspected. Performed By: #### S YPHR ####[id number] [place] [address] GC + CHLAMYDIA BY AMPLIFIED DETECTIONon 08-06-2020 CHLAMYDIA TRACH.,AMPLIFIED Negative Normal Negative [facility] Comment on above: Performed By: #### G CCHA #### [facility] [address] [place] [address] N.GONORRHEA,AMPLIFIED Negative Normal Negative [facility] Comment on above: Performed By: #### G CCHA #### [facility] [address] [place] [address] CBC ANEMIA PANEL WITH REFLEX ,PREGNANCYon 08-05-2020 Erythrocyte distribution width (RBC) [Ratio] 12.7 % Normal 11.5 - 14.5 [facility] Comment on above: Performed By: #### A NEMI #### [address] [address] Hematocrit (Bld) [Volume fraction] 40.4 % Normal 36.0 - 46.0 [facility] Comment on above: Performed By: #### A NEMI #### [address] [address] Hemoglobin (Bld) [Mass/Vol] 13.8 g/dL Normal 12.0 - 16.0 [facility] Comment on above: Performed By: #### A NEMI #### [address] [address] MCHC (RBC) [Mass/Vol] 34.3 g/dL Normal 32.0 - 36.0 [facility] Comment on above: Performed By: #### A NEMI #### [address] [address] MCV (RBC) [Entitic vol] 94 fL Normal 80 - 100 [facility] Comment on above: Performed By: #### A NEMI #### [address] [address] Platelets (Bld) [#/Vol] 285 10*3/uL Normal 150 - 450 [facility] Comment on above: Performed By: #### A NEMI #### [address] [address] RBC 4.27 x10E12/L Normal 4.00 - 5.20 [facility] Comment on above: Performed By: #### A NEMI #### [address] [address] REFLEX ADDED, ANEMIA PANEL NONE Normal [facility] Comment on above: Performed By: #### A NEMI #### [address] [address] WBC (Bld) [#/Vol] 11.2 10*3/uL Normal 4.4 - 11.3 [facility] Comment on above: Performed By: #### A NEMI #### [address] [address] Cult, Urineon 08-05-2020 Bacteria identified Cx Nom (U) PATIENT: CANDI MOYA LOCATION: [facility]#: [id number] : 88 AGE: SEX: F ORDERED BY: ADAN HATCH: URINE COLLECTED: 08/05/20 08:48ANTIBIOTICS AT SHARON.: RECEIVED : 08/05/20 17:46SITE: Clean Catch/Voided R E S U L T S URINE CULTURE,BACTERIAL FINAL 08/06/20 11:12 NO SIGNIFICANT GROWTH. [facility] [employer] Work Phone: GC + CHLAMYDIA BY AMPLIFIED DETECTIONon 08-05-2020 Lab Specimen Source Urine Normal [facility] Comment on above: Performed By: #### [facility] #### [facility] [address] [place] [address] GC + Chlamydia By Amplified Detectionon 08-05-2020 C. trachomatis rRNA PEMA+probe Ql (Unsp spec) Negative Negative [place] [address] [employer] Work Phone: N. gonorrhoeae rRNA PEMA+probe Ql (Unsp spec) Negative Negative [place] [address] [employer] Work Phone: Comment on above: SOURCE: Urine HIV 1/2 ANTIGEN/ANTIBODY SCR EEN WITH REFLEX TO CONFIRMATIONon 08-05-2020 HIV 1+2 Ab+HIV1 p24 Ag IA Ql NONREACTIVE See Below [facility] [employer] Work Phone: Comment on above: SOURCE: Reference Ra nge: NONREACTIVE HIV Ag/Ab screen is performed using the Siemens [employer] HIV Ag/Ab Combo assay which detects the presence of HIV p24 antigen as well as antibodies to HIV-1 (Group M and O) and HIV-2. Hematologyon 08-05-2020 ABO group Nom (Bld) O Apparent [facility] [employer] Work Phone: Blood group antibody screen Ql Negative [facility] [employer] Work Phone: Hematocrit (Bld) [Volume fraction] 40.4 % See Below [facility] [employer] Work Phone: Comment on above: Reference Range: 36. 0 - 46.0 Hemoglobin (Bld) [Mass/Vol] 13.8 g/dL See Below [facility] [employer] Work Phone: Comment on above: Reference Range: 12. 0 - 16.0 MCV (RBC) [Entitic vol] 94 fL 80 - 100 [facility] [employer] Work Phone: Platelets (Bld) [#/Vol] 285 {x10E9/L} 150 - 450 [facility] [employer] Work Phone: RBC (Bld) [#/Vol] 4.27 {x10E12/L} See Below [facility] [employer] Work Phone: Comment on above: Reference Range: 4.0 0 - 5.20 Rh immune globulin screen (Bld) [Interp] Positive STAT-[facility] [employer] Work Phone: WBC (Bld) [#/Vol] 11.2 {x10E9/L} 4.4 - 11.3 [facility] [address] [employer] Work Phone: Hepatitis B Surface Antigeno n 08-05-2020 Hepatitis B Surface Antigen NONREACTIVE See Below [facility] [place] [address] [employer] Work Phone: Comment on above: SOURCE: Reference [...] Cyto stain.thin prep Doc (Cvx/Vag) ADDENDUMAccession #: [id number] Date of Procedure: 08/05/2020 Pathologist: YUE LOBOate [...] performed by the Molecular Diagnostics Laboratory at [facility]. This specimen has been analyzed by the RiskclickPrep Imaging System ([employer]an automated imaging and review system, which assists the laboratory inevaluating cells on ThinPrep Pap tests. Following automated imaging, selectedfields from every slide were reviewed by a wheel grinder and/or pathologist.Electronical ly Signed Out By NIKOEL PRIDE MD/AARON/AMY By the signature on this [...] was verified by the [facility] DiagnosticLaboratory at [facility]. The lab iscertified under the Clinical Laboratory Amendments of 1988 (CLIA 88) asqualified to perform high complexity clinical laboratory testing. Electronically Signed Out By ARELY HUMMEL MD/Howard the signature on this report, the individual or group listed as making theFinal Interpretation/Diagnosis certifies that they have reviewed this case. [facility] [id number] [place] [address]-A [employer] Work Phone: Otheron 08-05-2020 Erythrocyte distribution width (RBC) [Ratio] 12.7 % See Below [facility] [employer] Work Phone: Comment on above: Reference Range: 11. 5 - 14.5 MCHC (RBC) [Mass/Vol] 34.3 g/dL See Below [facility] [employer] Work Phone: Comment on above: Reference Range: 32. 0 - 36.0 NONE [facility] [employer] Work Phone: Rubella IgG Antibodyon 08-05 Rubella virus IgG IA Ql Positive [facility] [employer] Work Phone: Comment on above: SOURCE: INTERPRETATI [...] REFL EXon 08-05-2020 Lab Specimen Source Normal [facility] Comment on above: Performed By: #### S [facility] ####[id number] [place] [address] Performed By: #### H CVAB ####[id number] [place] [address] Performed By: #### V ERAB #### [address] [address] T. pallidum IgG+IgM IA Ql (S) NONREACTIVE See Below [address] Work Phone: Comment on above: SOURCE: Reference Ra nge: NONREACTIVENo significant level of Treponema pallidum antibody detected. Repeat testing in 2 to 4 weeks may be considered if early infection or incubating syphilis infection is suspected. TYPE + SCREENon 08-05-2020 RH TYPE Positive Normal [facility] Comment on above: Order Comment: TEST TYPE + SCREEN WAS CANCELLED, 08/05/2020 11:17 DUPLICATE ORDER. Performed By: #### V ERAB #### [address] [address] URINE CULTURE,BACTERIALon URINE CULTURE,BACTERIAL PATIENT: CANDI MOYA LOCATION: [facility]#: [id number] : 88 AGE: SEX: F ORDERED BY: RJ HATCH SOURCE: URINE COLLECTED: 08/05/20 08:48 ANTIBIOTICS AT SHARON.: RECEIVED : 08/05/20 17:46 SITE: Clean Catch/Voided R E S U L T S URINE CULTURE,BACTERIAL FINAL 08/06/20 11:12 NO SIGNIFICANT GROWTH. Normal [facility] Comment on above: Performed By: #### V ERAB #### [address] [address] [employer] US BREAST LTD LTon 04-13 [employer] US BREAST LTD LT * * *Final Report* * * DATE OF EXAM: Apr 13 2019 12:54PM LDW 0593 - [employer] US BREAST LTD LT / PROCEDURE REASON: Breast lump on left side at 2 o'clock position * * * * Physician Interpretation * * * * #[id number] - [facility] US BREAST LTD LT LIMITED ULTRASOUND [...] clinical followup are recommended. Neyda baron/woody:04/13/2019 18:10:21 Take Up Supervisor(s): Brittaney Sanabria RDMS, [facility] Ultrasound BI-RADS: 2 Benign Nuclear Equipment Design Engineer: Woody Transcribe Date/Time: Apr 13 2019 12:17P Dictated by : NEYDA WHITTEN MD This examination was interpreted and the report reviewed and electronically signed by: NEYDA WHITTEN MD on Apr 13 2019 6:10PM EST Normal [facility] HPV High Riskon 04-12-2019 HPV High Risk SEE BELOW Normal [facility] Comment on above: Result Comment: HPV HighRisk Type 16 SEE BELOW Negative for HPV DNA high risk type 16 by PCR. HPV HighRisk Type 18 SEE BELOW Negative for HPV DNA high risk type 18 by PCR. HPV HighRisk Other SEE BELOW Negative for HPV DNA high risk types: 31,33,35,39,45,51,52,56,58,59,66,68 by PCR. This test was developed and its performance characteristics determined by [facility] Path[facility] Medicine [place] ([facility]). It has not been cleared or approved by the FDA. [facility] is regulated under CLIA as qualified to perform high-complexity testing. This test is used for clinical purposes. It should not be regarded as investigational or for research. Performing Laboratory: [facility] [address] [place] [address] Performed By: #### H PVRX #### [place] [address] HPV High Riskon 04-10-[address] [facility] Comment on above: Performed By: #### H PVRX #### [facility] [address] [place] [address] Chlam/GC-DNA Amplifiedon Chlam/GC-DNA Amplified Test performed at [facility] See scanned results Normal [facility] Comment on above: Performed By: #### C TGCA #### [place] [address] Cult and Smr Aerobicon 04-05 Cult and Smr Aerobic Test performed at [facility] Few Normal vaginal clementina. Many Gram positive Organisms. Few Mononuclear cells Few Squamous epithelial cells Normal [facility] Comment on above: Performed By: #### C _AER #### [place] [address] Pap,Cyto Gynon 04-05-2019 Pap,Cyto [employer] Test performed at [place] [address] NAME: CANDI MOYA REQUESTING: RANDY BOTELLO CNP SPECIMEN: TP CX REFLEX TO HPV ASCUS/RUBEN Relevant History: LMP: 03/25/2019 REPORT AMENDED FOR: ANCILLARY TESTING Negative for HPV DNA high risk type 16 by PCR. Please see additional report from [facility]. Negative for HPV DNA high risk type 18 by PCR. Please see additional report from [facility]. Negative for HPV DNA high risk types: 31, 33, 35, 39, 45, 51, 52, 56, 58, 59, 66, 68 by PCR. Please see additional report from [facility]. Electronically signed: 04/13/2019 Screened by: VIRIDIANA JULIEN (ASCP) Signed Out by: VIRIDIANA JULIEN (ASCP) SPECIMEN ADEQUACY SATISFACTORY FOR EVALUATION. ENDOCERVICAL/TRANSFORMAT ION ZONE COMPONENTS PRESENT. GENERAL CATEGORIZATION EPITHELIAL CELL ABNORMALITY. INTERPRETATION/RESULT ATYPICAL SQUAMOUS CELLS OF UNDETERMINED SIGNIFICANCE. ANCILLARY TESTING The specimen was sent to [facility] for HPV typing. Results will be issued [...] 13, 2019 Page 1 of 1 Normal [facility] Comment on above: Performed By: #### C YTOP #### [place] [id number] Vital Signs Date Time Vital Sign Value Performing Clinician Faci lity 04-10-2025 09:42-0400 Body height 162.56 cm No Primary Care Physician [facility] 04-10-2025 09:41-0400 Body mass index (BMI) [Ratio] 35.9 kg/m2 No Primary Care Physician [facility] 04-10-2025 09:41-0400 Body weight 95.05 kg No Primary Care Physician [facility] 04-10-2025 09:41-0400 Diastolic blood pressure 70 mm[Hg] No Primary Care Physician [facility] 04-10-2025 09:41-0400 Systolic blood pressure 106 mm[Hg] No Primary Care Physician [facility] 04-03-2025 12:57-0400 Body height 162.[address] Roro Troy MD Work Phone: [facility] 04-03-2025 12:57-0400 Body mass index (BMI) [Ratio] 36.3 kg/m2 Dr. Roro Troy MD Work Phone: [facility] 04-03-2025 12:57-0400 Body weight 95.[address] Roro Troy MD Work Phone: [facility] 04-03-2025 12:57-0400 Diastolic blood pressure 70 mm[Hg] Dr. Roro Troy MD Work Phone: [facility] 04-03-2025 12:57-0400 Systolic blood pressure 104 mm[Hg] Dr. Roro Troy MD Work Phone: [facility] 03-21-2025 10:21-0400 Body height 162.56 cm No Primary Care Physician [facility] 03-21-2025 10:19-0400 Body mass index (BMI) [Ratio] 35.9 kg/m2 No Primary Care Physician [facility] 03-21-2025 10:19-0400 Body weight 95.02 kg No Primary Care Physician [facility] 03-21-2025 10:19-0400 Diastolic blood pressure 71 mm[Hg] No Primary Care Physician [facility] 03-21-2025 10:19-0400 Systolic blood pressure 106 mm[Hg] No Primary Care Physician [facility] 03-07-2025 14:18-0400 Body height 162.56 cm No Primary Care Physician [facility] 03-07-2025 14:14-0400 Body mass index (BMI) [Ratio] 35.7 kg/m2 No Primary Care Physician [facility] 03-07-2025 14:14-0400 Body weight 94.51 kg No Primary Care Physician [facility] 03-07-2025 14:14-0400 Diastolic blood pressure 70 mm[Hg] No Primary Care Physician [facility] 03-07-2025 14:14-0400 Systolic blood pressure 108 mm[Hg] No Primary Care Physician [facility] 02-23-2025 14:20-0400 Body height 162.56 cm No Primary Care Physician [facility] 02-23-2025 14:20-0400 Body mass index (BMI) [Ratio] 35.9 kg/m2 No Primary Care Physician [facility] 02-23-2025 14:20-0400 Body weight 94.82 kg No Primary Care Physician [facility] 02-23-2025 14:20-0400 Diastolic blood pressure 69 mm[Hg] No Primary Care Physician [facility] 02-23-2025 14:20-0400 Systolic blood pressure 101 mm[Hg] No Primary Care Physician [facility] 02-06-2025 10:45-0400 Body height 162.56 cm No Primary Care Physician [facility] 02-06-2025 10:45-0400 Body mass index (BMI) [Ratio] 36.8 kg/m2 No Primary Care Physician [facility] 02-06-2025 10:45-0400 Body weight 97.52 kg No Primary Care Physician [facility] 02-06-2025 10:42-0400 Body temperature 97.8 [degF] No Primary Care Physician [facility] 02-06-2025 10:42-0400 Respiratory rate 16 /min No Primary Care Physician [facility] 02-06-2025 10:41-0400 Diastolic blood pressure 75 mm[Hg] No Primary Care Physician [facility] 02-06-2025 10:41-0400 Heart rate 103 /min No Primary Care Physician [facility] 02-06-2025 10:41-0400 Systolic blood pressure 144 mm[Hg] No Primary Care Physician [facility] 02-06-2025 09:59-0400 Body height 162.56 cm No Primary Care Physician [facility] 02-06-2025 09:59-0400 Body mass index (BMI) [Ratio] 36.2 kg/m2 No Primary Care Physician [facility] 02-06-2025 09:59-0400 Body weight 95.73 kg No Primary Care Physician [facility] 02-06-2025 09:59-0400 Diastolic blood pressure 69 mm[Hg] No Primary Care Physician [facility] 02-06-2025 09:59-0400 Systolic blood pressure 119 mm[Hg] No Primary Care Physician [facility] 01-16-2025 13:51-0400 Body height 162.56 cm No Primary Care Physician [facility] 01-16-2025 13:43-0400 Body mass index (BMI) [Ratio] 35.9 kg/m2 No Primary Care Physician [facility] 01-16-2025 13:43-0400 Body weight 95.02 kg No Primary Care Physician [facility] 01-16-2025 13:43-0400 Diastolic blood pressure 60 mm[Hg] No Primary Care Physician [facility] 01-16-2025 13:43-0400 Systolic blood pressure 98 mm[Hg] No Primary Care Physician [facility] 12-19-2024 10:52-0400 Body height 162.56 cm No Primary Care Physician [facility] 12-19-2024 10:52-0400 Body mass index (BMI) [Ratio] 35.6 kg/m2 No Primary Care Physician [facility] 12-19-2024 10:52-0400 Body weight 94.12 kg No Primary Care Physician [facility] 12-19-2024 10:52-0400 Diastolic blood pressure 70 mm[Hg] No Primary Care Physician [facility] 12-19-2024 10:52-0400 Systolic blood pressure 104 mm[Hg] No Primary Care Physician [facility] 11-22-2024 15:00-0400 Body height 162.56 cm No Primary Care Physician [facility] 11-22-2024 15:00-0400 Body mass index (BMI) [Ratio] 35.6 kg/m2 No Primary Care Physician [facility] 11-22-2024 15:00-0400 Body weight 94.12 kg No Primary Care Physician [facility] 11-22-2024 15:00-0400 Diastolic blood pressure 75 mm[Hg] No Primary Care Physician [facility] 11-22-2024 15:00-0400 Systolic blood pressure 113 mm[Hg] No Primary Care Physician [facility] 10-24-2024 15:27-0400 Body mass index (BMI) [Ratio] 35.4 kg/m2 No Primary Care Physician [facility] 10-24-2024 15:27-0400 Body weight 93.55 kg No Primary Care Physician [facility] 10-24-2024 15:27-0400 Diastolic blood pressure 76 mm[Hg] No Primary Care Physician [facility] 10-24-2024 15:27-0400 Systolic blood pressure 110 mm[Hg] No Primary Care Physician [facility] 09-22-2024 14:25-0400 Body height 162.56 cm No Primary Care Physician [facility] 09-22-2024 14:25-0400 Body mass index (BMI) [Ratio] 35.5 kg/m2 No Primary Care Physician [facility] 09-22-2024 14:25-0400 Body weight 94 kg No Primary Care Physician [facility] 09-22-2024 14:25-0400 Diastolic blood pressure 79 mm[Hg] No Primary Care Physician [facility] 09-22-2024 14:25-0400 Systolic blood pressure 126 mm[Hg] No Primary Care Physician [facility] 08-21-2023 12:24-0500 Body temperature 98.2 [degF] No Primary Care Physician [facility] 08-21-2023 12:24-0500 Diastolic blood pressure 71 mm[Hg] No Primary Care Physician [facility] 08-21-2023 12:24-0500 Heart rate 100 /min No Primary Care Physician [facility] 08-21-2023 12:24-0500 Respiratory rate 14 /min No Primary Care Physician [facility] 08-21-2023 12:24-0500 SaO2% (BldA) [Mass fraction] 99 % No Primary Care Physician [facility] 08-21-2023 12:24-0500 Systolic blood pressure 116 mm[Hg] No Primary Care Physician [facility] 08-21-2023 04:12-0500 Body height 162.56 cm No Primary Care Physician [facility] 08-21-2023 04:12-0500 Body mass index (BMI) [Ratio] 36.3 kg/m2 No Primary Care Physician [facility] 08-21-2023 04:12-0500 Body weight 96.2 kg No Primary Care Physician [facility] 08-19-2023 13:09-0500 Diastolic blood pressure 77 mm[Hg] No Primary Care Physician [facility] 08-19-2023 13:09-0500 Systolic blood pressure 126 mm[Hg] No Primary Care Physician [facility] 08-19-2023 12:57-0500 Body mass index (BMI) [Ratio] 34.3 kg/m2 No Primary Care Physician [facility] 08-19-2023 12:57-0500 Body weight 90.71 kg No Primary Care Physician [facility] 08-13-2023 16:16-0500 Body mass index (BMI) [Ratio] 36.1 kg/m2 No Primary Care Physician [facility] 08-13-2023 16:16-0500 Body weight 95.48 kg No Primary Care Physician [facility] 08-13-2023 16:16-0500 Diastolic blood pressure 70 mm[Hg] No Primary Care Physician [facility] 08-13-2023 16:16-0500 Systolic blood pressure 108 mm[Hg] No Primary Care Physician [facility] 08-06-2023 16:01-0500 Body mass index (BMI) [Ratio] 36.1 kg/m2 No Primary Care Physician [facility] 08-06-2023 16:01-0500 Body weight 95.36 kg No Primary Care Physician [facility] 08-06-2023 16:01-0500 Diastolic blood pressure 69 mm[Hg] No Primary Care Physician [facility] 08-06-2023 16:01-0500 Systolic blood pressure 116 mm[Hg] No Primary Care Physician [facility] 07-30-2023 15:13-0500 Body mass index (BMI) [Ratio] 35.9 kg/m2 No Primary Care Physician [facility] 07-30-2023 15:13-0500 Body weight 95.02 kg No Primary Care Physician [facility] 07-30-2023 15:13-0500 Diastolic blood pressure 86 mm[Hg] No Primary Care Physician [facility] 07-30-2023 15:13-0500 Systolic blood pressure 123 mm[Hg] No Primary Care Physician [facility] 07-16-2023 15:20-0500 Body mass index (BMI) [Ratio] 35.9 kg/m2 No Primary Care Physician [facility] 07-16-2023 15:20-0500 Body weight 94.85 kg No Primary Care Physician [facility] 07-16-2023 15:20-0500 Diastolic blood pressure 74 mm[Hg] No Primary Care Physician [facility] 07-16-2023 15:20-0500 Systolic blood pressure 113 mm[Hg] No Primary Care Physician [facility] 07-02-2023 16:12-0500 Body mass index (BMI) [Ratio] 35.4 kg/m2 No Primary Care Physician [facility] 07-02-2023 16:12-0500 Body weight 93.61 kg No Primary Care Physician [facility] 07-02-2023 16:12-0500 Diastolic blood pressure 73 mm[Hg] No Primary Care Physician [facility] 07-02-2023 16:12-0500 Systolic blood pressure 106 mm[Hg] No Primary Care Physician [facility] 06-14-2023 15:37-0500 Body mass index (BMI) [Ratio] 35.2 kg/m2 No Primary Care Physician [facility] 06-14-2023 15:37-0500 Body weight 93.04 kg No Primary Care Physician [facility] 06-14-2023 15:37-0500 Diastolic blood pressure 67 mm[Hg] No Primary Care Physician [facility] 06-14-2023 15:37-0500 Systolic blood pressure 119 mm[Hg] No Primary Care Physician [facility] 06-04-2023 11:20-0500 Body height 162.56 cm No Primary Care Physician [facility] 06-04-2023 11:13-0500 Body mass index (BMI) [Ratio] 34.8 kg/m2 No Primary Care Physician [facility] 06-04-2023 11:13-0500 Body weight 92.07 kg No Primary Care Physician [facility] 06-04-2023 11:13-0500 Diastolic blood pressure 68 mm[Hg] No Primary Care Physician [facility] 06-04-2023 11:13-0500 Systolic blood pressure 114 mm[Hg] No Primary Care Physician [facility] 05-18-2023 14:32-0500 Body mass index (BMI) [Ratio] 34.8 kg/m2 No Primary Care Physician [facility] 05-18-2023 14:32-0500 Body weight 92.13 kg No Primary Care Physician [facility] 05-18-2023 14:32-0500 Diastolic blood pressure 74 mm[Hg] No Primary Care Physician [facility] 05-18-2023 14:32-0500 Systolic blood pressure 116 mm[Hg] No Primary Care Physician [facility] 04-13-2023 10:49-0400 Body weight 89.81 kg No Primary Care Physician [facility] 04-13-2023 10:49-0400 Diastolic blood pressure 70 mm[Hg] No Primary Care Physician [facility] 04-13-2023 10:49-0400 Systolic blood pressure 110 mm[Hg] No Primary Care Physician [facility] 04-13-2023 10:09-0400 Body height 162.56 cm No Primary Care Physician [facility] 03-17-2023 12:15-0400 Body mass index (BMI) [Ratio] 34 kg/m2 No Primary Care Physician [facility] 03-17-2023 11:29-0400 Body mass index (BMI) [Ratio] 33.7 kg/m2 No Primary Care Physician [facility] 03-17-2023 11:29-0400 Body weight 89.07 kg No Primary Care Physician [facility] 03-17-2023 11:29-0400 Diastolic blood pressure 68 mm[Hg] No Primary Care Physician [facility] 03-17-2023 11:29-0400 Systolic blood pressure 108 mm[Hg] No Primary Care Physician [facility] 02-19-2023 10:56-0400 Body height 162.56 cm No Primary Care Physician [facility] 02-19-2023 10:51-0400 Body mass index (BMI) [Ratio] 33.5 kg/m2 No Primary Care Physician [facility] 02-19-2023 10:51-0400 Body weight 88.62 kg No Primary Care Physician [facility] 02-19-2023 10:51-0400 Diastolic blood pressure 83 mm[Hg] No Primary Care Physician [facility] 02-19-2023 10:51-0400 Systolic blood pressure 121 mm[Hg] No Primary Care Physician [facility] 01-21-2023 13:03-0400 Body mass index (BMI) [Ratio] 33.3 kg/m2 No Primary Care Physician [facility] 01-21-2023 13:03-0400 Body weight 87.99 kg No Primary Care Physician [facility] 01-21-2023 13:03-0400 Diastolic blood pressure 80 mm[Hg] No Primary Care Physician [facility] 01-21-2023 13:03-0400 Systolic blood pressure 116 mm[Hg] No Primary Care Physician [facility] 08-20-2021 13:58-0500 Body height 162.56 cm Randy Botello Work Phone: [employer] Work Phone: 08-20-2021 13:58-0500 Body mass index (BMI) [Ratio] 32.62 kg/m2 Randy Botello Work Phone: [employer] Work Phone: 08-20-2021 13:58-0500 Body surface area Derived from formula 1.91 m2 Randy Botello Work Phone: [place] [address] [address] Work Phone: 08-20-2021 13:58-0500 Body temperature 97.8 [degF] Ranyd Botello Work Phone: [place] [address] [address] Work Phone: 08-20-2021 13:58-0500 Body weight 86.2 kg Randy Botello Work Phone: [place] [address] [address] Work Phone: 08-20-2021 13:58-0500 Diastolic blood pressure 68 mm[Hg] Randy Botello Work Phone: [place] [address] [employer] Work Phone: 08-20-2021 13:58-0500 Systolic blood pressure 114 mm[Hg] Randy Botello Work Phone: [place] [address] [address] Work Phone: 03-04-2021 13:37-0400 Body height 162.56 cm Randy Botello Work Phone: [place] [address] [address] Work Phone: 03-04-2021 13:37-0400 Body mass index (BMI) [Ratio] 32.2 kg/m2 Randy Botello Work Phone: [place] [address] [address] Work Phone: 03-04-2021 13:37-0400 Body surface area Derived from formula 1.9 m2 Randy Botello Work Phone: [place] [address] [address] Work Phone: 03-04-2021 13:37-0400 Body temperature 98.2 [degF] Randy Botello Work Phone: [place] [address] [address] Work Phone: 03-04-2021 13:37-0400 Body weight 85.1 kg Randy Maryjo Nerissa Work Phone: [place] [address] [address] Work Phone: 03-04-2021 13:37-0400 Diastolic blood pressure 66 mm[Hg] Randy Maryjo Nerissa Work Phone: [place] [address] [address] Work Phone: 03-04-2021 13:37-0400 Systolic blood pressure 110 mm[Hg] Randy Maryjo Nerissa Work Phone: [place] [address] [address] Work Phone: 02-18-2021 11:08-0400 Body height 162.56 cm Randy Maryjo Nerissa Work Phone: [place] [address] [address] Work Phone: 02-18-2021 11:08-0400 Body mass index (BMI) [Ratio] 31.96 kg/m2 Randy Maryjo Nerissa Work Phone: [place] [address] [address] Work Phone: 02-18-2021 11:08-0400 Body surface area Derived from formula 1.9 m2 Randy Maryjo Nerissa Work Phone: [place] [address] [address] Work Phone: 02-18-2021 11:08-0400 Body temperature 97.3 [degF] Randy Maryjo Nerissa Work Phone: [place] [address] [address] Work Phone: 02-18-2021 11:08-0400 Body weight 84.46 kg Randy Maryjo Nerissa Work Phone: [place] [address] [address] Work Phone: 02-18-2021 11:08-0400 Diastolic blood pressure 68 mm[Hg] Randy M Nerissa Work Phone: [place] [address] [employer] Work Phone: 02-18-2021 11:08-0400 Systolic blood pressure 108 mm[Hg] Randy Botello Work Phone: [place] [address] [address] Work Phone: 02-07-2021 12:29-0400 Body temperature 98.24 [...] height 162.56 cm Randy Botello Work Phone: [place] [address] [employer] Work Phone: 01-29-2021 08:39-0400 Body mass index (BMI) [Ratio] 34.44 kg/m2 Randy Maryjo Nerissa Work Phone: [place] [address] [employer] Work Phone: 01-29-2021 08:39-0400 Body surface area Derived from formula 1.96 m2 Randy Maryjo Nerissa Work Phone: [place] [address] [address] Work Phone: 01-29-2021 08:39-0400 Body temperature 96.9 [degF] Randy Botello Work Phone: [place] [address] [address] Work Phone: 01-29-2021 08:39-0400 Body weight 91 kg Randy Botello Work Phone: [place] [address] [address] Work Phone: 01-29-2021 08:39-0400 Diastolic blood pressure 72 mm[Hg] Randy Botello Work Phone: [place] [address] [address] Work Phone: 01-29-2021 08:39-0400 Systolic blood pressure 102 mm[Hg] Randy Botello Work Phone: [place] [address] [address] Work Phone: 01-21-2021 08:51-0400 Body height 162.56 cm Randy Botello Work Phone: [place] [address] [address] Work Phone: 01-21-2021 08:51-0400 Body mass index (BMI) [Ratio] 34.55 kg/m2 Randy Botello Work Phone: [place] [address] [address] Work Phone: 01-21-2021 08:51-0400 Body surface area Derived from formula 1.96 m2 Randy Duffyel Work Phone: [place] [address] [address] Work Phone: 01-21-2021 08:51-0400 Body temperature 96.8 [degF] Randy Duffyel Work Phone: [place] [address] [address] Work Phone: 01-21-2021 08:51-0400 Body weight 91.3 kg Randy Botello Work Phone: [place] [address] [address] Work Phone: 01-21-2021 08:51-0400 Diastolic blood pressure 70 mm[Hg] Randy Duffyel Work Phone: [place] [address] [address] Work Phone: 01-21-2021 08:51-0400 Systolic blood pressure 112 mm[Hg] Randy Maryjo Duffyel Work Phone: [place] [address] [address] Work Phone: 01-14-2021 08:51-0400 Body height 162.56 cm Randy Botello Work Phone: [place] [address] [address] Work Phone: 01-14-2021 08:51-0400 Body mass index (BMI) [Ratio] 33.87 kg/m2 Randy Botello Work Phone: [place] [address] [address] Work Phone: 01-14-2021 08:51-0400 Body surface area Derived from formula 1.94 m2 Randy Botello Work Phone: [place] [address] [address] Work Phone: 01-14-2021 08:51-0400 Body temperature 96.8 [degF] Randy Duffyel Work Phone: [place] [address] [address] Work Phone: 01-14-2021 08:51-0400 Body weight 89.5 kg Randy Duffyel Work Phone: [place] [address] [address] Work Phone: 01-14-2021 08:51-0400 Diastolic blood pressure 70 mm[Hg] Randy Maryjo Nerissa Work Phone: [place] [address] [employer] Work Phone: 01-14-2021 08:51-0400 Systolic blood pressure 110 mm[Hg] Randy Botello Work Phone: [place] [address] [employer] Work Phone: 12-31-2020 08:34-0400 Body height 162.56 cm Randy Botello Work Phone: [place] [address] [employer] Work Phone: 12-31-2020 08:34-0400 Body mass index (BMI) [Ratio] 33.6 kg/m2 Randy Botello Work Phone: [place] [address] [employer] Work Phone: 12-31-2020 08:34-0400 Body surface area Derived from formula 1.94 m2 Randy Botello Work Phone: [place] [address] [employer] Work Phone: 12-31-2020 08:34-0400 Body temperature 97.5 [degF] Randy Botello Work Phone: [place] [address] [employer] Work Phone: 12-31-2020 08:34-0400 Body weight 88.8 kg Randy Botello Work Phone: [place] [address] [employer] Work Phone: 12-31-2020 08:34-0400 Diastolic blood pressure 68 mm[Hg] Randy Botello Work Phone: [place] [address] [employer] Work Phone: 12-31-2020 08:34-0400 Systolic blood pressure 112 mm[Hg] Randy Duffyel Work Phone: [place] [address] [employer] Work Phone: 12-17-2020 08:43-0400 Body height 162.56 cm Randy Botello Work Phone: [place] [address] [address] Work Phone: 12-17-2020 08:43-0400 Body mass index (BMI) [Ratio] 33.38 kg/m2 Randy Botello Work Phone: [place] [address] [address] Work Phone: 12-17-2020 08:43-0400 Body surface area Derived from formula 1.93 m2 Randy Botello Work Phone: [place] [address] [address] Work Phone: 12-17-2020 08:43-0400 Body temperature 97.8 [degF] Randy Botello Work Phone: [place] [address] [address] Work Phone: 12-17-2020 08:43-0400 Body weight 88.2 kg Randy Botello Work Phone: [place] [address] [address] Work Phone: 12-17-2020 08:43-0400 Diastolic blood pressure 72 mm[Hg] Randy Botello Work Phone: [place] [address] [address] Work Phone: 12-17-2020 08:43-0400 Systolic blood pressure 110 mm[Hg] Randy Sibley Nerissa Work Phone: [place] [address] [address] Work Phone: 11-19-2020 08:38-0400 Body height 162.56 cm Randy Duffyel Work Phone: [place] [address] [address] Work Phone: 11-19-2020 08:38-0400 Body mass index (BMI) [Ratio] 32.58 kg/m2 Randy Sibley Nerissa Work Phone: [address] Work Phone: 11-19-2020 08:38-0400 Body surface area Derived from formula 1.91 m2 Randy Botello Work Phone: [place] [address] [address] Work Phone: 11-19-2020 08:38-0400 Body temperature 97.5 [degF] Randy Botello Work Phone: [place] [address] [address] Work Phone: 11-19-2020 08:38-0400 Body weight 86.1 kg Randy Botello Work Phone: [place] [address] [address] Work Phone: 11-19-2020 08:38-0400 Diastolic blood pressure 66 mm[Hg] Randy Botello Work Phone: [place] [address] [address] Work Phone: 11-19-2020 08:38-0400 Systolic blood pressure 112 mm[Hg] Randy Botello Work Phone: [place] [address] [address] Work Phone: 08-05-2020 10:59-0500 BMI (Body Mass Index) 29.93 kg/m2 Randy Botello [facility] [address] Work Phone: 08-05-2020 10:59-0500 Body Temperature 97.1 [degF] Randy Botello [facility] [address] Work Phone: 08-05-2020 10:59-0500 Body weight 79.09 kg Randy Botello [facility] [address] Work Phone: 08-05-2020 10:59-0500 BP Diastolic 72 mm[Hg] Randy Botello [facility] [address] Work Phone: 08-05-2020 10:59-0500 BP Systolic 118 mm[Hg] Randy Yanez-[place] [address] Work Phone: 08-05-2020 10:590500 BSA (Body Surface Area) 1.85 m2 Randy Yanez-[employer] [address] Work Phone: 08-05-2020 10:590500 Height 162.56 cm Randy Yanez-[facility] [address] Work Phone: Encounters Encounter Date Encounter Type Care Provider Facility Start: 04-17-2025 End: 04-17-2025 ambulatory No Primary Care Physician Facility:[facility] Start: 04-10-2025 End: 04-10-[address] Priscilla Gandara DO -[facility] Work Phone: Start: 04-10-2025 End: 04-10-2025 ambulatory No Primary Care Physician -[facility] Start: 04-06-2025 Patient encounter procedure Renetta Hinojosa [employer] -Ultrasound [facility] Work Phone: Start: 04-06-2025 ambulatory No Primary Car e Physician Facility:[facility] Start: 04-03-2025 Patient encounter procedure Renetta Hinojosa [employer] -Laboratory Specimen Work Phone: Start: 04-03-2025 End: 04-03-2025 Patient encounter procedure Renetta Hinojosa [employer] -[facility] Work Phone: Start: 04-03-2025 End: 04-03-[address] Roro Troy MD Work Phone: -[facility] Start: 04-03-2025 End: 04-03-2025 ambulatory No Primary Care Physician Facility:[facility] Start: 03-21-2025 End: 03-21-[address] Roro Troy MD -[facility] Work Phone: Start: 03-21-2025 End: 03-21-2025 ambulatory No Primary Care Physician -[facility] Start: 03-07-2025 End: 03-07-[address] Priscilla Gandara DO -[facility] Work Phone: Start: 03-07-2025 End: 03-07-2025 ambulatory No Primary Care Physician -[facility] Start: 02-23-2025 End: 02-23-2025 Patient encounter procedure Chinyere Covarrubias CNM -[facility] Work Phone: Start: 02-23-2025 End: 02-23-2025 ambulatory No Primary Care Physician [facility] Start: 02-06-2025 ambulatory Priscilla Gandara Fa cility:[facility] Start: 02-06-2025 Non-patient / Non-visit Dr. Shalom Gandara DO -[facility] Start: 02-06-2025 End: 02-06-2025 Patient encounter procedure Renetta Hinojosa [employer] -[facility] Work Phone: Start: 02-06-2025 End: 02-06-2025 ambulatory No Primary Care Physician -[facility] Start: 01-16-2025 End: 01-16-2025 Patient encounter procedure Renetta Hinojosa [employer] -[facility] Work Phone: Start: 01-16-2025 End: 01-16-2025 ambulatory No Primary Care Physician -[facility] Start: 12-26-2024 End: 12-26-2024 ambulatory No Primary Care Physician -Ultrasound [facility] Start: 12-26-2024 End: 12-26-2024 Patient encounter procedure Renetta Hinojosa [employer] -Ultrasound [facility] Work Phone: Start: 12-26-2024 End: 12-26-2024 ambulatory No Primary Care Physician Facility:[facility] Start: 12-19-2024 End: 12-19-[address] Roro Troy MD -[facility] Work Phone: Start: 12-19-2024 End: 12-19-2024 ambulatory No Primary Care Physician [facility] Work Phone: Start: 12-08-2024 End: 12-08-2024 ambulatory No Primary Care Physician [facility] Work Phone: Start: 12-08-2024 End: 12-08-[address] Roro Troy MD -[facility] Work Phone: Start: 12-08-2024 End: 12-08-2024 ambulatory No Primary Care Physician Facility:[facility] Start: 11-22-2024 End: 11-22-2024 Patient encounter procedure Sindhu Leblanc CNM -[facility] Work Phone: Start: 11-22-2024 End: 11-22-2024 ambulatory No Primary Care Physician [facility] Work Phone: Start: 10-24-2024 End: 10-24-[address] Roro Troy MD -[facility] Work Phone: Start: 10-24-2024 End: 10-24-2024 ambulatory Roro Troy Facility:[facility] Start: 09-22-2024 End: 09-22-2024 Patient encounter procedure Sindhu Leblanc CNM -[facility] Work Phone: Start: 09-22-2024 End: 09-22-2024 ambulatory No Primary Care Physician [facility] Work Phone: Start: 09-22-2024 End: 09-22-2024 [facility] Start: 08-21-2023 Non-patient / Non-visit No [facility] Physician [facility] Start: 08-21-2023 End: 08-21-2023 Evaluation and management of inpatient No Primary Care Physician [facility] Work Phone: Start: 08-19-2023 End: 08-19-2023 Patient encounter procedure No Primary Care Physician [facility] Work Phone: Start: 08-13-2023 End: 08-13-2023 Patient encounter procedure No Primary Care Physician [facility] Work Phone: Start: 08-06-2023 End: 08-06-2023 Patient encounter procedure No Primary Care Physician [facility] Work Phone: Start: 08-05-2023 End: 08-05-2023 Patient encounter procedure No Primary Care Physician [facility]-Ultrasound, [facility] Work Phone: Start: 07-30-2023 End: 07-30-2023 Patient encounter procedure No Primary Care Physician [facility] Work Phone: Start: 07-16-2023 End: 07-16-2023 Patient encounter procedure No Primary Care Physician [facility] Work Phone: Start: 07-02-2023 End: 07-02-2023 Patient encounter procedure No Primary Care Physician [facility] Work Phone: Start: 06-14-2023 End: 06-14-2023 Patient encounter procedure No Primary Care Physician [facility] Work Phone: Start: 06-04-2023 End: 06-04-2023 ambulatory No Primary Care Physician [facility] Work Phone: Start: 06-04-2023 End: 06-04-2023 Patient encounter procedure No Primary Care Physician [facility] Work Phone: Start: 05-18-2023 End: 05-18-2023 Patient encounter procedure No Primary Care Physician [facility] Work Phone: Start: 04-13-2023 End: 04-13-2023 ambulatory No Primary Care Physician [facility] Work Phone: Start: 04-13-2023 End: 04-13-2023 Patient encounter procedure No Primary Care Physician [facility]-Laboratory, Specimen Work Phone: Start: 04-13-2023 End: 04-13-2023 Patient encounter procedure No Primary Care Physician [facility] Work Phone: Start: 03-29-2023 End: 03-29-2023 ambulatory No Primary Care Physician [facility] Work Phone: Start: 03-29-2023 End: 03-29-2023 Patient encounter procedure No Primary Care Physician [facility] Ultrasound Work Phone: Start: 03-17-2023 End: 03-17-2023 Patient encounter procedure No Primary Care Physician [facility] Work Phone: Start: 03-09-2023 End: 03-09-2023 ambulatory No Primary Care Physician [facility] Work Phone: Start: 03-09-2023 End: 03-09-2023 Patient encounter procedure No Primary Care Physician [facility]-Laboratory, OP Pavilion Start: 02-19-2023 End: 02-19-2023 Patient encounter procedure No Primary Care Physician [facility] Work Phone: Start: 01-21-2023 End: 01-21-2023 Patient encounter procedure No Primary Care Physician [facility]-Laboratory, Specimen Work Phone: Start: 01-21-2023 End: 01-21-2023 Patient encounter procedure No Primary Care Physician [facility] Work Phone: Start: 10-05-2022 End: 10-05-2022 ambulatory [facility] Work Phone: Start: 10-05-2022 End: 10-05-2022 Patient encounter procedure [facility]-Laboratory Start: 09-24-2022 End: 09-24-2022 ambulatory [facility] Work Phone: Start: 09-24-2022 End: 09-24-2022 Patient encounter procedure [facility]-Laboratory Start: 09-18-2022 End: 09-18-2022 ambulatory [facility] Work Phone: Start: 09-18-2022 End: 09-18-2022 Patient encounter procedure [facility]-Laboratory Start: 09-16-2022 End: 09-16-2022 ambulatory [facility] Work Phone: Start: 09-16-2022 End: 09-16-2022 Patient encounter procedure [facility]-Ultrasound, [facility] Start: 01-28-2022 Rx Renewal Randy Duffy el Work Phone: [employer] Work Phone: Start: 08-27-2021 Chart Update Randy Duffy el Work Phone: [employer] Work Phone: Start: 08-20-2021 Periodic preventive med est patient 18-39 yrs Randy Botello Work Phone: [employer] Work Phone: Start: 03-04-2021 Patient encounter procedure Randy Botello Work Phone: [employer] Work Phone: Start: 02-18-2021 Postop follow up vis it related to original px Randy Botello Work Phone: [employer] Work Phone: Start: 02-04-2021 End: 02-07-2021 Evaluation and management of inpatient Rj Hatch [id number] Start: 02-03-2021 Chart Update Randy benitez Work Phone: [employer] Work Phone: Start: 01-29-2021 Office outpatient vi sit 15 minutes Randy Botello Work Phone: [employer] Work Phone: Start: 01-21-2021 Office outpatient vi sit 15 minutes Randy Maryjo Nerissa Work Phone: [place] [address] [address] Work Phone: Start: 01-16-2021 Chart Update Randy Sibley Nag el Work Phone: [address] Work Phone: Start: 01-15-2021 Chart Update Randy Maryjo Nag el Work Phone: [address] Work Phone: Start: 01-14-2021 EPVOB, Provider: jR Hatch, Status: Pen, Time: 8:45 AM Randy Maryjo Nerissa Work Phone: [address] Work Phone: Start: 01-14-2021 Office outpatient vi sit 15 minutes Randy Maryjo Nerissa Work Phone: [address] Work Phone: Start: 01-13-2021 AUDIT Randy Maryjo Nag el Work Phone: [address] Work Phone: Start: 12-17-2020 Office outpatient vi sit 15 minutes Randy Maryjo Nerissa Work Phone: [place] [address] [address] Work Phone: Start: 12-03-2020 Office outpatient vi sit 15 minutes Randy Maryjo Nerissa Work Phone: [place] [address] [address] Work Phone: Start: 11-27-2020 Chart Update Randy Sibley Nag el Work Phone: [place] [address] [address] Work Phone: Start: 11-27-2020 Chart Update Randy M Nag el Work Phone: [employer] [employer] Work Phone: Start: 08-05-2020 Patient encounter procedure Randy Botello [employer] Work Phone: Start: 07-10-2020 Patient encounter procedure Randy Botello [employer] Work Phone: Cancer cervix - screening done Randy Botello Work Phone: [employer] Work Phone: Comment on above: 08/05/2020: ASC-US, HPV negative; Encounter for gynecological examination (general) (routine) without abnormal findings Randy Botello [employer] Phone: [place] [employer] Phone: Comment on above: 08/05/2020: ASC-US, HPV negative; End: 08-28-2021 Encounter for gynecological examination (general) (routine) without abnormal findings Randy Botello [employer] Phone: [place] [employer] Phone: Comment on above: 08/20/2021: Negative 08/05/2020: [...] HCV Quant by PCR testing - HCVPCR lc#[id number] Non Reactive: < 0.8 Equivocal: >/= 0.8 [...] on above: Performed By: #### T +S ####[place] [address] Start: 08-08-2020 Antibody screen Comment on above: Order Comment: TEST TYPE + SCREEN WAS CANCELLED, 08/05/2020 11:17 DUPLICATE ORDER. Performed By: #### V ERAB #### [place] [address] H/O: section Status pos t delivery Randy [...] ful (vaginal after ), currently Renetta Hillmantings [employer] H/O: section Hx success ful (vaginal after ), currently Renetta Hinojosa [employer] H/O: section Hx success ful (vaginal after ), currently Chinyere Covarrubias CNM H/O: section Hx success ful (vaginal after ), currently Dr. Priscilla Gandara DO H/O: section Hx success ful (vaginal after ), currently Dr. Roro Troy MD H/O: section Hx success ful (vaginal after ), currently Renetta Hinojosa [employer] H/O: section Hx success ful (vaginal after ), currently Dr. Priscilla Gandara DO History of No histor y of surgery Randy Botello No history of surgery Zeferino Botello Work Phone: Plan of Treatment Date Care Activity Detail Author Start: 04-03-2025 Beta-hemolytic Streptococcus culture Group B Streptococcus Culture [facility] Start: 04-03-2025 Group B Streptococcu s Culture Group B Streptococcus Culture [facility] Start: 04-03-2025 Streptococcus agalac tiae [Presence] in Unspecified specimen by Organism specific culture [facility] Start: 02-06-2025 Nonstress test [facility] Start: 02-06-2025 Obstetric monitoring [facility] Start: 02-06-2025 Vital signs measurements [facility] Start: 02-06-2025 CBC W Auto Different ial panel - Blood [facility] Start: 02-06-2025 Measurement of gluco se 2 hours after glucose challenge for glucose tolerance test [facility] Start: 02-06-2025 Serologic test for syphilis [facility] Start: 02-06-2025 End: 02-06-2025 [facility] Start: 02-06-2025 Patient discharge [facility] Start: 08-21-2023 Administration of medication [facility] Start: 08-21-2023 Application of ice collar, cap or bag [facility] Start: 08-21-2023 Catheterization of vein [facility] Start: 08-21-2023 Introduction of urin armond catheter [facility] Start: 08-21-2023 Measuring intake and output [facility] Start: 08-21-2023 Notification of physician [facility] Start: 08-21-2023 Procedure discontinued [facility] Start: 08-21-2023 Provision of activit y privileges [facility] Start: 08-21-2023 Vital signs measurements [facility] Start: 08-21-2023 End: 08-21-2023 [facility] Start: 08-21-2023 Documentation procedure [facility] Start: 08-21-2023 Admission procedure [facility] Start: 08-21-2023 Patient discharge [facility] Start: 08-21-2022 Patient encounter procedure ANNUAL, Provider: Rj Hatch, Status: Pen, Time: 2:00 PM [facility] [employer] Work Phone: Start: 08-20-2021 Patient encounter procedure ANNUAL, Provider: Rj Hatch, Status: Pen, Time: 2:00 PM [facility] Work Phone: Start: 03-04-2021 Patient encounter procedure [facility] Start: 03-04-2021 PPV, Provider: Rj Hatch, Status: Pen, Time: 1:30 PM PPV, Provider: Rj Hatch, Status: Pen, Time: 1:30 PM [facility] [employer] Work Phone: Start: 02-05-2021 End: 02-06-2022 HYDROmorphone Injectable 0.2 mg IntraVenous Push Every 4 Hours PRN ; (DILAUDID)DOSE = 0.4 mg IntraVenous Push Every 3 Hours, PRN breakthrough painClinician Notes: Conditional Order: START AFTER PACKAGING LINE OPERATOR is discontinued. Start: 05-Feb-2021 End: 05-Feb-2022 Ordered: 04-Feb-2021 Holden, Rj R Intent Comments: Conditional Order: START AFTER PACKAGING LINE OPERATOR is discontinued. [facility] Comment on above: Conditional Order: S TART AFTER PACKAGING LINE OPERATOR is discontinued. Start: 02-05-2021 End: 02-05-2022 [place] [...] Rj Hatch, Status: Pen, Time: 9:00 AM [employer] Work Phone: Start: 01-29-2021 EPVOB, Provider: Rj Hatch, Status: Pen, Time: 8:30 AM EPVOB, Provider: Rj Hatch, Status: Pen, Time: 8:30 AM [employer] Work Phone: Start: 01-21-2021 EPVOB, Provider: Rj Hatch, Status: Pen, Time: 8:45 AM EPVOB, Provider: Rj Hatch, Status: Pen, Time: 8:45 AM [employer] Work Phone: Start: 12-31-2020 EPVOB, Provider: Rj Hatch, Status: Pen, Time: 8:30 AM EPVOB, Provider: Rj Hatch, Status: Pen, Time: 8:30 AM [facility] [employer] Work Phone: Start: 12-17-2020 EPVOB, Provider: Rj Hatch, Status: Pen, Time: 8:30 AM EPVOB, Provider: Rj Hatch, Status: Pen, Time: 8:30 AM [facility] [employer] Work Phone: Start: 12-03-2020 EPVOB, Provider: Rj Hatch, Status: Pen, Time: 8:30 AM EPVOB, Provider: Rj Hatch, Status: Pen, Time: 8:30 AM [facility] [employer] Work Phone: Anti-D (Rh) immunoglobulin [facility] Beta-hemolytic Streptococcus culture [facility] Erythrocyte mean corpuscular volume determination [facility] anatomy study [facility] Hematocrit [Volume Fraction] of Blood [facility] Hemoglobin [Mass/vol ume] in Blood [facility] Leukocytes [#/volume ] in Blood [facility] Mean corpuscular hemoglobin concentration determination [facility] Mean corpuscular hemoglobin determination [facility] Neutrophil count [facility] Neutrophil percent differential count [facility] Patient Education Kick Counts ED False Labor OB Triage: Return to Hospital or Notify Physician if you Experience: [facility] Work Phone: Patient referral [facility] Work Phone: Platelets [#/volume] in Blood [facility] Red blood cell count [facility] Red cell distributio n width determination [facility] Ultrasound scan for growth [facility] Payers Date Payer Category Payer Self-pay 2024 Unknown [id number] 2018 Unknown Unknown [facility] PACKAGE PLAN [id number] Unknown [id number] 2.16.8 [id number] Unknown [id number] 2.16.8 40.1.691165.3.579.2.462 Unknown [id number] 2.16.8 40.1.500907.3.579.2.462 Unknown [id number] 2.16.8 40.1.843143.3.579.2.462 Unknown [id number] 2.16.8 40.1.944862.3.579.2.462 Unknown [id number] 2.16.8 40.1.424203.3.579.2.462 Unknown [id number] 2.16.8 40.1.477945.3.579.2.462 Unknown [id number] 2.16.8 40.1.348191.3.579.2.462 Unknown [id number] 2.16.8 40.1.661647.3.579.2.462 Unknown [id number] 2.16.8 40.1.254980.3.579.2.462 Unknown [id number] 2.16.8 40.1.921571.3.579.2.462 Unknown [id number] 2.16.8 40.1.482763.3.579.2.462 Unknown [id number] 2.16.8 40.1.561094.3.579.2.462 Unknown [id number] 2.16.8 40.1.722788.3.579.2.462 Unknown [id number] 2.16.8 40.1.415701.3.579.2.462 Unknown [id number] 2.16.8 40.1.853660.3.579.2.462 Unknown [id number] 2.16.8 40.1.679441.3.579.2.462 Unknown [id number] 2.16.8 40.1.614542.3.579.2.462 Unknown [id number] 2.16.8 40.1.986949.3.579.2.462 Social History Date Type Detail Facility Assertion Tobacco smoking consumption unknown (finding) [place] [address] [employer] Work Phone: Sexually active Sexually active [place] [address] [employer] Phone: Start: 05-18-2022 End: 08-21-2023 Tobacco smoking consumption unknown [facility] Start: 1990 Sex Assigned At Female [facility] Start: 09-05-2024 Tobacco smoking stat us NHIS Never smoked tobacco (finding) [facility] Start: 09-28-2024 Sex Female (finding) [facility] Goals Date Patient Goal Desired Activity /State Functional Status Date Assessment Result Facility Functional observable [facility] NEGATED: Highlighted row Functional performance Functional status health issues are not documented Disease [place] [address] [employer] Work Phone: Mental Status Date Assessment Result Facility 02-07-2021 Cognitive functi ons 17:11 [facility] NEGATED: Highlighted row Cognitive function [Interpretation] Cognitive status health issues are not documented Disease [place] [address] [employer] Work Phone: Clinical Notes 02-04-2021 to 04-03-2025 Note Date & Type Note Facility 04-03-2025 Progress note [facility] 03-21-2025 Progress note [facility] 02-06-2025 Radiology Diagnostic study note [facility] Imaging Services [address] [place] [address] OB Biophysical Prof W/O NST MR#: [id number] Acct: [id number] Name: CANDI MOYA Rep #: [id number] : 1990 F 34 From: Fran Fonseca MD PCP: Care Physician,No Primary Status: REG CLI Study:OB Biophysical Prof W/O NST Date of Exa m: 02/06/25 Exam# [id number] Ordering Dr: Priscilla Pack DO PROCEDURE: OB [...] IMPRESSION: Normal biophysical profile score. Reading Location: [id number] CC: Dr. Priscilla Gandara DO; No Primary Care Physician ~ Nuclear Equipment Design Engineer: Signed [facility] 12-27-2024 Radiology Diagnostic study note [facility] Imaging Services [address] [place] [address] OB Limited (No Biometrics) MR#: [id number] Acct: [id number] Name: CANDI MOYA Rep #: [id number] : 1990 F 34 From: Fran Fonseca MD PCP: Care Physician,No Primary Status: REG CLI Study:OB Limited (No Biometrics) Date of Exam : 12/26/24 Exam# [id number] Ordering Dr: Renetta Hinojosa [employer] PROCEDURE: OB LIMITED (NO BIOMETRICS) 12/26/2024 REASON [...] MANISHA Hinojosa; No Primary Care Physician ~ Nuclear Equipment Design Engineer: Signed [facility] 12-19-2024 Evaluation note Diagnosis Onset Date [...] 9:37am Susceptible to varicella (non-immune), currently acute [place] 5th, 2 025 9:37am arrhythmia affecting , [...] to varicella (non-immune), currently acute March 12:53pm [facility] Work Phone: 1(917) 335-505806-17-2025 Evaluation note* Diagnosis Onset Date Resolution Status Admit Date Advanced maternal age (AMA) in acute December 19, 2024 11:24am Factor 5 Leiden mutation, heterozygous acute December 19, 2024 11:24am Hx successful (vaginal after ), currently acute December 19 11:24am Obesity affecting acute December 19, 2024 11:24am acute December 19 11:24am Previous delivery affecting acute [place] 17th, 2 025 11:24am Supervision of high-risk [...] varicella (non-immune), currently acute April 10 9:38am [facility] Work Phone: 1(760) 190-811106-09-2025 Radiology Diagnostic study note [facility] Imaging Services [address] [place] [address] [id number] OB Anatomy Scan MR#: [id number] Acct: [id number] Name: CANDI MOYA Rep #: [id number] : 1990 F 34 From: Karli Mcfadden MD PCP: Care Physician,No Primary Status: REG CLI Study:OB Anatomy Scan Date of Exam: 12/27 Exam# [id number] Ordering Dr: Roro Villafana MD PROCEDURE: OB [...] Troy MD; No Primary Care Physician ~ Nuclear Equipment Design Engineer: Signed [facility]05-21-2025 Evaluation note* Diagnosis Onset Date Resolution [...] varicella (non-immune), currently acute February 23 2:17pm [facility] Work Phone: 1(901) 389-550205-21-2025 Evaluation note* Diagnosis Onset Date Resolution Status [...] (non-immune), currently acute March 07 025 2:12pm [facility] Work Phone: [phone] Evaluation note* Diagnosis Onset Date Resolution Status [...] , antepartum resolved March 21, 2025 9:49am [facility] Work Phone: 1(786) 907-739605-21-2025 Progress [facility] [address] [place] [address], [place] [address] OFFICE VISIT Date of Service: 11/22/24 MR#: [id number] Acct: [id number] Name: CANDI MOYA Rep #: [id number] : 1990 Provider: POPEYE Leblanc Age/Sex: 34/F [place] [facility]: Signed Intake Vital Signs 09/22/24 14:25 10/24/24 15:27 11/22/24 15:00 Height 5 ft 4 in 5 ft 4 in 5 ft 4 in Weight: 207 lb 8 oz BMI 35.6 BP 113/75 Intake Visit Reasons: 17wk ob Chief Complaint: 17wk 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 Is patient in pain?: No [...] 2 current occupational status: unemployed current occupation: [employer] current occupational exposures/hazards: No pets and [...] physical activity do you participate in: none neftaly/yazidism: Voodoo seatbelt use: always do you feel safe at home: Yes 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 history: - 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 4 Elective abortions Hx Para 2 [...] live - full term 9#11oz Male none [facility] KRISTAL Hay Delivery Date: 02/04/21 Last Updated [...] Symptoms of Preeclampsia, Infant Feeding No , [place] Education and Family Medical Leave or Disability [...] Cosigner Signature: Date (if applicable) CC: ~ [facility]05-21-2025 Progress note Author Sindhu Leblanc [facility] Note Date/Time November 22, 2024 3:12p m [facility] [address] [place] [address], [address] [place] [address] OFFICE VISIT Date of Service: 11/22/24 MR#: [id number] Acct: [id number] Name: CANDI MOYA Rep #: [id number] : 1990 Provider: POPEYE Leblanc Age/Sex: 34/F [place] [facility] [place] Status: Signed Intake Vital Signs 09/22/24 14:25 10/24/24 15:27 11/22/24 15:00 Height 5 ft 4 in 5 ft 4 in 5 ft 4 in Weight: 207 lb 8 oz BMI 35.6 BP 113/75 Intake Visit Reasons: 17wk ob 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 GA appropriate handout given. 11/22/24 5220 <Electronically signed by Sindhu flynn CNM> Date _ Sindhu Leblanc CNM Cosigner Signature: Date (if applicable) CC: ~ [facility] [employer] Work Phone: 1(971) 953-196404-22-2025 Evaluation note* Diagnosis Onset Date Resolution Status [...] (non-immune), currently acute February 06, 2025 9:37am [facility] Work Phone: [phone] 533-641504-22-2025 Evaluation note* Diagnosis Onset Date Resolution Status [...] (non-immune), currently acute February 06, 2025 9:37am [facility] Work Phone: [phone]) 175-996703-21-2025 Evaluation note* Diagnosis Onset Date Resolution Status [...] (non-immune), currently acute September 22, 2024 2:21pm [facility] Work Phone: [phone]) [phone] Evaluation note* Diagnosis Onset Date Resolution Status [...] (non-immune), currently acute November 22, 2024 2:51pm [facility] Work Phone: [phone] Evaluation note* Diagnosis Onset Date Resolution Status [...] (non-immune), currently acute December 19, 2024 11:24am [facility] Work Phone: [phone]) 171-137503-21-2025 Evaluation note* Diagnosis Onset Date Resolution Status [...] (non-immune), currently acute January 16, 2025 1:36pm [facility] [facility] Work Phone: 1([phone]) 329-242102-17-2024 Discharge summary Author Roro Troy [facility] August 21, 2023 7:19am Note Date/Time August 21, 2023 7:19am [facility] Medical Records Department [address] [place] [address] Instructions for Home/Discharge Instructions 08/21/23 0719 MR#: [id number] Acct: [id number] Name: GRIFFINCANDILI SHARMA Rep #:[id number] : 1990 33 From: Roro sweeney MD [...] Up With: Roro Troy MD When: Call [phone] to make an appointment with your doctor [...] CC: No Primary Care Physician ~ Signed [facility] Work Phone: 1([phone]) 339-182102-17-2024 Procedure [facility] 08-21-2023 History and physical note Author Roro Troy [facility] August 21, 2023 5:31am Note Date/Time August 21, 2023 5:31am [facility] Medical Records Department [address] [place] [address] H&P Exam - TEST DATA DEVELOPER 08/21/23 0507 MR#: [id number] Acct: [id number] Name: CANDI MOYA Rep #:[id number] : 1990 33 From: Roro sweeney MD PCP: Care Physician,No Primary Status :ADM IN Location: GV282-1 HPI - General General Date of Admission: [...] Bth Weight Gen Labor Lgth Anesthesia [facility] Provider FOB 02/04/21 Edmun 39 [...] any complications: none I have reviewed the [facility] and made any clinically relevant updates. 08/21/23 0531 <Electronically signed by Roro Troy MD> Cosigner Signature (if applicable): CC: Dr. 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 Care Physician~ Signed [facility] Work Phone: 1([phone]) 418-618502-16-2022 NoteAccession #: [id number] Date of Procedure: 08/20/2021 Pathologist: [facility], Cytology Date Reported: 08/27/2021 Date Received: [...] test interpretation above. QC review performed at [facility], [address] [place] [id number] This specimen has been analyzed by the RiskclickPrep Imaging System ([employer] an automated imaging and review system, which assists the laboratory in evaluating cells on ThinPrep Pap tests. Following automated imaging, selected beltran from every slide were reviewed by a wheel grinder and/or pathologist. Electronically Signed Out By [facility], Cytology//[facility] By the signature on this report, the [...] Source of Specimen A: THINPREP PAP CERVICAL [facility] Department of Pathology [address] [place] [address]LRMorristown Medical CenterComment on above:Performed By: #### C #### [facility] Cytology [address] [place] [address] [id number] NoteSend Summary: Discharge Summary Providers: Provider RoleProvider Name AttendingRj Hatch Note Recipients: none Discharge: Summary: Admission Date: .04-Feb-2021 05:11:00 Discharge Date: 07-Feb-2021 Attending Physician at Discharge: Rj Hatch Admission Reason: Term Final Discharge Diagnoses: Status post delivery Procedures: Primary low transverse section Condition at Discharge: Satisfactory Disposition at Discharge: .Home Vital Signs: T PRBPSpO2 Value36.72531948/7298% Date/Time02/07 4:148/6 4:148/6 4:148/6 4:148/6 4:14 Range(36.6C [...] Pending: None Radiology Results - Pending: None [place] Suicide Risk: negative Discharge Instructions: Activity: Return to normal activity as tolerated Nutrition/Diet: Regular Follow Up Appointments: Follow-Up - OB Provider: Physician/Dept/Service: Rj Hatch MD Call to Schedule in: 2 weeks Discharge Medications: Vdre-diw-kbiihvt Tylenol and Motrin Electronic Signatures: Rj Hatch) (Signed 07-Feb-2021 07:14) Authored: Send Summary, Summary Content, Ongoing Care, Note Completion Last Updated: 07-Feb-2021 07:14 by Rj Hatch)[facility] 02-05-2021 NoteProvider Information: Maternal Delivery Information: Delivery [...] pre-op dx Delivery Provider: Rj Hatch MD Home Planning Consultant Salesperson: Tang Rios DO Dictation: not applicable - [...] extended laterally with bandage scissors, with the locomotive operator's hand between the scissors and the [...] was taken to PACU in good condition. Corrective Therapy Aide: Dr. Rios as needed for appropriate retraction, [...] Completion Last Updated: 04-Feb-2021 22:44 by Rj Hatch)[facility] 02-04-2021 NoteHPI/OB History: Care Provider: Rj Hatch [...] 05-Aug-2020 Syphilis Results: negative Antepartum/: Antepartum/PP: Final [id number] Current EGA:39 Patient is > or = [...] been reviewed. Objective: Objective Information: T PRBPSpO2 Hitwn325047/7395% Date/Time83 6:228/3 6:218/3 6:22 Range (95 - [...] From Patient Profile - OB v3 04-Feb-2021 06:41[facility]* Cardiovascular: S1 S2 RRR, no murmursExtremities: no calf tenderness, reflexes 2+Constitutional: alert, orientedRespiratory/Thorax: normal respiratory effort, lungs clear, no wheezes or rhonchi [facility] information available [facility] Work Phone: Evaluation note* Diagnosis Onset [...] Supervision of high risk , antepartum acute [facility] Work Phone: Evaluation note* Diagnosis Onset [...] Susceptible to varicella (no n-immune), currently acute [facility] Work Phone: Evaluation note* Diagnosis Onset [...] Susceptible to varicella (no n-immune), currently acute [facility] Work Phone: Evaluation note* Diagnosis Onset [...] Susceptible to varicella (no n-immune), currently acute [facility] Work Phone: Evaluation note* Diagnosis Onset [...] Supervision of high risk , antepartum resolved [facility] Work Phone: History of Present illness [id number]-[id number] presents for 2-week postop status post primary for arrest. Patient is she is doing well. Pain controlled. Bleeding improving. Bowel and bladder function returned to normal. Infant doing well. Patient is no acute concerns [employer] Work Phone: History of Present illness NarrativePatient presents for checkup. She is breast and bottlefeeding. She is a heterozygote forfactor V Leiden.[employer] Work Phone: History of Present illness NarrativePresents for annual exam. She voices no complaints and is doing well. Denies any bowel or bladder problems. Denies any breast problems. She is on progesterone only control pills due to history of factor V Leiden. 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 *Information obtained from FAIZAN s: Save Your Life: Get Care for These POST- Warning SignsOn Behalf on the [facility] Maternity Staff, Congratulations on your . [...] us a call. Also, please join our [facility] Support Group which meets the wednesday of every month at 10 am in the OB unit. No need to register. If you have any questions please call us at [phone]. Again, Congratulations! Warmest Regards,[facility]'s Maternity Staff [facility] note Author Roro Troy [facility] Note Date/Time March 21, 2025 10:42[facility] [address], [address] [place] [address] OFFICE VISIT Date of Service: 03/21/25 MR#: [id number] Acct: [id number] Name: CANDI MOYA Rep #: [id number] : 1990 Provider: Dr. 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 Date Name GA/Weeks Outcome Route Bth Weight Gen Labor Lgth Anesthesia Del Locatn Provider FOB 02/04/21 Edmun 39 live - full term 7lb 14oz [place] [facility] [place] 08/21/23 [place] 39 live - full [...] -?-?-?-?-?-?-?-?-?-?-?-?- -No VB, LOF. G ood [facility] 02/06/25 -?-?-?-?-?-?-?-?-?-?-?-?- 28w 4d 211 [...] and Symptoms of Preeclampsia, Feeding No , [place] Education, Family Medical Leave or Disability Forms, Depression and Intimate Partner Violence Results POC Urinalysis 2 Dip (Clinic) Office Urine Glucose Negative Last Edit by Renetta Ruiz on 03/21/25 10:22 Office Urine Protein Negative Last Edit by Renetta Ruzi on 03/21/25 10:22 Coding Level of Care [...] Good Signature: Date (if applicable) CC: ~ [facility] Work Phone: Progress note Author Renetta Hinojosa [facility] Note Date/Time April 03, 2025 1:34pm [facility] [address] [place] [address], [address] [place] [address] OFFICE VISIT Date of Service: 04/03/25 MR#: [id number] Acct: [id number] Name: CANDI MOYA Rep #: [id number] : 1990 Provider: MANISHA Hinojosa Age/Sex: 34/F [place] [facility] [place]: Signed Intake Vital Signs 02/06/25 09:59 03/21/25 10:21 04/03/25 12:57 Height 5 ft 4 in 5 ft 4 in 5 ft 4 in Weight: 211 lb 6 oz BMI 36.3 BP 104/70 Intake Visit Reasons: 36 WK OB/NST Chief Complaint: 36 Week OB/NST 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 Date Name GA/Weeks Outcome Route Bth Weight Infant Gen Labor Lgth Anesthesia Del Locatn Provider FOB 02/04/21 Edmun 39 live - full term 7lb 14oz Male epidural [facility] [place] 08/21/23 [place] 39 live - full term 9#11oz Male none [facility] Delivery Date: 02/04/21 Last Updated by: [...] -?-?-?-?-?-?-?-?-?-?-?-?- -No VB, [facility] -?-?-?-?-?-?-?-?-?-?-?-?- 28w 4d 211 lb [...] mutation, heterozygous D68.51 CPT Codes Non-Stress Test (36976) Assessment and Plan Assessment and Plan (1) [...] Continue routine care and follow up. 04/03/25 [id number] <Electronically signed by Renetta flynn [employer]> Date _ Renetta Hinojosa NP [employer] Cosigner Signature: Date (if applicable) CC: ~ [facility] Work Phone: Reason for referral (narrative)No reason for referral information availableWWVUMedicine [facility] Work Phone: Summary Purpose Family History [...] Will No August 21 4:34am Power of [employer] Consultant No August 21, 2023 4:34am Chief Complaint [...] 07, 2025 2:12pm Supervision of high-risk [facility] 2024 2:12pm Susceptible to varicella (no n-immune), [...] 21, 2025 9:49am Supervision of high-risk [facility] 2024 9:49am Susceptible to varicella (no n-immune), [...] 11:24am Factor 5 Leiden mutation, heterozygous J [facility] 2024 11:24am Hx successful (vaginal after [...] 1:36pm Factor 5 Leiden mutation, heterozygous J [facility] 2024 1:36pm Hx successful (vaginal after ), [...] 07, 2025 2:12pm Supervision of high-risk [facility] 2024 2:12pm Susceptible to varicella (no n-immune), [...] 21, 2025 9:49am Supervision of high-risk [facility] 2024 9:49am Susceptible to varicella (no n-immune), [...] section and content) DATE CREATED AUTHOR 04/14/2019 [facility] [employer] [facility] DATE CREATED AUTHOR AUTHOR'S ORGANIZ ATION 06/06/2021 [facility] DATE CREATED AUTHOR AUTHOR'S ORGANIZ ATION 08/21/2021 [employer] DATE CREATED AUTHOR AUTHOR'S ORGANIZ ATION 02/26/2022 [facility] DATE CREATED AUTHOR AUTHOR'S ORGANIZ ATION 04/18/2025 [facility] <item> Privacy Markings (unrecogniz ed section and [...] Physician Primary Care Provider Active Renetta Hinojosa [employer], [employer] Attending Provider, Referring Provider Active Team Status: [...] Inactive Member Role/Relationship Status Dates Renetta Hinojosa [employer], [employer] Attending Provider Active Start: December 26, 2024 End: December 26, 2024 Renetta Hinojosa [employer], [employer] Referring Provider Active Start: December 26, 2024 End: December 26, 2024 No Primary Care Physician Primary Care Provider Active Start: December 26, 2024 End: December 26, 2024 Team Status: Inactive Member Role/Relationship Status Dates Renetta Hinojosa [employer], [employer] Attending Provider Active Start: January 16, 2025 [...] Inactive Member Role/Relationship Status Dates Renetta Hinojosa [employer], [employer] Attending Provider Active Start: December 26, 2024 End: December 26, 2024 Renetta Hinojosa [employer], [employer] Referring Provider Active Start: December 26, 2024 End: December 26, 2024 No Primary Care Physician Primary Care Provider Active Start: December 26, 2024 End: December 26, 2024 Team Status: Inactive Member Role/Relationship Status Dates Renetta Hinojosa [employer], [employer] Attending Provider Active Start: January 16, 2025 End: January 16, 2025 No Primary Care Physician Primary Care Provider Active Start: January 16, 2025 End: January 16, 2025 No Primary Care Physician Referring Provider Active Start: January 16, 2025 End: January 16, 2025 Team Status: Inactive Member Role/Relationship Status Dates Renetta Hinojosa [employer], [employer] Attending Provider Active Start: February 06, 2025 End: February 06, 2025 No Primary Care Physician Primary Care Provider Active Start: February 06, 2025 End: February 06, 2025 No Primary Care Physician Referring Provider Active Start: February 06, 2025 End: February 06, 2025 Team Status: Active Member Role/Relationship Status Dates No Primary Care Physician Primary Care Provider Active Start: February 06, 2025 Renetta Hinojosa [employer], [employer] Attending Provider Active Start: February 06, 2025 Renetta Hinojosa [employer], [employer] Referring Provider Active Start: February 06, 2025 Team Status: Inactive Member Role/Relationship Status Dates No Primary Care Physician Primary Care Provider Active Start: February 06, 2025 End: February 06, 2025 Renetta Hinojosa [employer], [employer] Other Provider Active St art: February 06, [...] Inactive Member Role/Relationship Status Dates Renetta Hinojosa [employer], [employer] Attending Provider Active Start: December 26, 2024 End: December 26, 2024 Renetta Hinojosa [employer], [employer] Referring Provider Active Start: December 26, 2024 End: December 26, 2024 No Primary Care Physician Primary Care Provider Active Start: December 26, 2024 End: December 26, 2024 Team Status: Inactive Member Role/Relationship Status Dates Renetta Hinojosa [employer], [employer] Attending Provider Active Start: January 16, 2025 End: January 16, 2025 No Primary Care Physician Primary Care Provider Active Start: January 16, 2025 End: January 16, 2025 No Primary Care Physician Referring Provider Active Start: January 16, 2025 End: January 16, 2025 Team Status: Inactive Member Role/Relationship Status Dates Renetta Hinojosa [employer], [employer] Attending Provider Active Start: February 06, 2025 [...] 2025 End: February 06, 2025 Renetta Hinojosa [employer], [employer] Other Provider Active St art: February 06, [...] Active Start: February 06, 2025 Renetta Hinojosa [employer], [employer] Other Provider Active St art: February 06, [...] Inactive Member Role/Relationship Status Dates Renetta Hinojosa [employer], [employer] Attending physician Active Start: December 26, 2024 End: December 26, 2024 Renetta Hinojosa [employer], [employer] Referring Provider Active Start: December 26, 2024 End: December 26, 2024 No Primary Care Physician Primary care physician Activ e Start: December 26, 2024 End: December 26, 2024 Team Status: Inactive Member Role/Relationship Status Dates Renetta Hinojosa [employer], [employer] Attending physician Active Start: January 16, 2025 End: January 16, 2025 No Primary Care Physician Primary care physician Activ e Start: January 16, 2025 End: January 16, 2025 No Primary Care Physician Referring Provider Active Start: January 16, 2025 End: January 16, 2025 Team Status: Inactive Member Role/Relationship Status Dates Renetta Hinojosa [employer], [employer] Attending physician Active Start: February 06, 2025 [...] 2025 End: February 06, 2025 Renetta Hinojosa [employer], [employer] Nurse Practitioner Active Start: February 06, 2025 [...] e Start: February 06, 2025 Renetta Hinojosa [employer], [employer] Nurse Practitioner Active Start: February 06, 2025 [...] Inactive Member Role/Relationship Status Dates Renetta Hinojosa [employer], [employer] Attending physician Active Start: December 26, 2024 End: December 26, 2024 Renetta Hinojosa [employer], [employer] Referring Provider Active Start: December 26, 2024 End: December 26, 2024 No Primary Care Physician Primary care physician Activ e Start: December 26, 2024 End: December 26, 2024 Team Status: Inactive Member Role/Relationship Status Dates Renetta Hinojosa [employer], [employer] Attending physician Active Start: January 16, 2025 End: January 16, 2025 No Primary Care Physician Primary care physician Activ e Start: January 16, 2025 End: January 16, 2025 No Primary Care Physician Referring Provider Active Start: January 16, 2025 End: January 16, 2025 Team Status: Inactive Member Role/Relationship Status Dates Renetta Hinojosa [employer], [employer] Attending physician Active Start: February 06, 2025 [...] 2025 End: February 06, 2025 Renetta Hinojosa [employer], [employer] Nurse Practitioner Active Start: February 06, 2025 [...] e Start: February 06, 2025 Renetta Hinojosa [employer], [employer] Nurse Practitioner Active Start: February 06, 2025 [...] End: April 03, 2025 Renetta Hinojosa NP, [employer] Attending physician Active Start: April 03, 2025 End: April 03, 2025 Team Status: Active Member Role/Relationship Status Dates No Primary Care Physician Primary care physician Activ e Start: April 03, 2025 Renetta Hinojosa [employer], [employer] Attending physician Active Start: April 03, 2025 Renetta Micaela [employer], [employer] Referring Provider Active Start: April 03, 2025 Team Status: Inactive Member Role/Relationship Status Dates No Primary Care Physician Referring Provider Active Start: December 19, 2024 End: December 19, 2024 Dr. Roro Troy MD Attending physician Active Start: December 19, 2024 End: December 19, 2024 Team Status: Inactive Member Role/Relationship Status Dates Renetta Hinojosa [employer], [employer] Attending physician Active Start: December 26, 2024 End: December 26, 2024 Renetta Hinojosa [employer], [employer] Referring Provider Active Start: December 26, 2024 End: December 26, 2024 No Primary Care Physician Primary care physician Activ e Start: December 26, 2024 End: December 26, 2024 Team Status: Inactive Member Role/Relationship Status Dates Renetta Hinojosa [employer], [employer] Attending physician Active Start: January 16, 2025 End: January 16, 2025 No Primary Care Physician Primary care physician Activ e Start: January 16, 2025 End: January 16, 2025 No Primary Care Physician Referring Provider Active Start: January 16, 2025 End: January 16, 2025 Team Status: Inactive Member Role/Relationship Status Dates Renetta Hinojosa [employer], [employer] Attending physician Active Start: February 06, 2025 [...] 2025 End: February 06, 2025 Renetta Hinojosa [employer], [employer] Nurse Practitioner Active Start: February 06, 2025 [...] e Start: February 06, 2025 Renetta Hinojosa [employer], [employer] Nurse Practitioner Active Start: February 06, 2025 [...] 2025 End: April 03, 2025 Renetta Hinojosa [employer], [employer] Attending physician Active Start: April 03, 2025 End: April 03, 2025 Team Status: Active Member Role/Relationship Status Dates No Primary Care Physician Primary care physician Activ e Start: April 03, 2025 Renetta Hinojosa [employer], [employer] Attending physician Active Start: April 03, 2025 Renetta Temple [employer], [employer] Referring Provider Active Start: April 03, 2025 [...] BE BASED ON THE PRIMARY CLINICAL RECORDS. [facility]. provides no warranty or guarantee of the accuracy or completeness of information in this document.
--- NOTE | 2025-04-21 05:46 | DCINST_ITS ---
Discharge Instructions DC O2, CPAP, BIPAP needs Home O2 Discharge instructions: No Dressing / Incision Discharge Activity: Return to Normal Activity, May Not Drive (while taking narcotic pain medications.) and May Shower May resume sexual activity in: 4-6 weeks Dressing / Incision Call your doctor if your incision/area has: Continuous Slow Oozing, Sudden Increased Bleeding, Increased Pain/ Swelling, Increased Redness and Foul Smelling Discharge Follow Up Care Please Follow Up With: Roro Troy MD When: Call [phone] to make an appointment with your doctor in 6 weeks. If you had elevated blood pressure or 4th degree laceration, you will need to be seen in 2 weeks. Test Results: Test results from this visit will be discussed in further detail at your follow- up appointment, if applicable. Discharge Plan Admission Admit Date/Time: 04/21/25 04:13 Attending Provider: Roro Troy Primary Care Provider: Care Physician,Arlet Primary Discharge Orders/Prescriptions Prescriptions: No Action PNV no.[id number] 400 mcg-35 mg- 25 mg-5 mg tablet,chewable 1 tab PO DAILY magnesium 250 mg tablet 250 mg PO QDAY Patient Comments: takes 1-2 daily for nausea Referrals / Follow Up: Care Physician,No Primary [Primary Care Provider, Medical]
[2025-04-21] MEDS: Oxytocin 15 Units/NS 250ml 15 UNITS/250 ML IV.SOLN 83 UNITS IV (05:50)
[2025-04-21] MEDS: 0.9% Saline Lock 10 ML Syringe IV (09:01)
[2025-04-22 03:56] VITALS: BP 108/73; PULSE 78; RESP 16; TEMP 36.1; O2SAT 97
[2025-04-22 07:40] VITALS: BP 112/77; PULSE 81; RESP 16; TEMP 36.5; O2SAT 98
--- NOTE | 2025-04-22 09:44 | PCM.PN.CNM ---
Subjective Subjective s/p on day #1, feeling well, desires d/c to home today. Objective Data Objective Data Vital Signs: Vital Signs Temp Pulse Resp BP Pulse Ox O2 Del Method 97.7 F L 81 16 112/77 98 Room Air 04/22/25 07:40 04/22/25 07:40 04/22/25 07:40 04/22/25 07:40 04/22/25 07:40 04/22/25 07:40 Oxygen Delivery Method Room Air Weight: 214 lb Body Mass Index (BMI) 36.7 Intake & Output: Intake and Output for Last 24 Hours 04/20/25 04/21/25 04/22/25 23:59 23:59 23:59 Intake Total 529.47 / 529.47 Output Total 850 / 850 Balance -320.53 / -320.53 Lab / Micro Data Attestation: I reviewed the patient's lab results. 04/21/25 04:15 ROS Constitutional Constitutional: Reports systems reviewed and no addt'l complaints, except as documented Respiratory/Chest Respiratory/Chest: Reports systems reviewed and no addt'l complaints, except as documented Gastrointestinal Gastrointestinal: Reports systems reviewed and no addt'l complaints, except as documented Genitourinary Genitourinary: Reports systems reviewed and no addt'l complaints, except as documented Psychiatric Psychiatric: Reports systems reviewed and no addt'l complaints, except as documented Physical Exam Const alert, oriented x3 and no apparent distress General Appearance: cooperative, comfortable, well kempt and well developed HEENT normocephalic Resp Resp Narrative: Respirations eased & unlabored. No s/s of distress noted. GI GI Narrative: soft, non-tender to touch. Uterus Palpation: uterus fundus firm (midline, u/1, small dark lochia, no odor.) Skin no rashes or lesions noted Neuro oriented x3 Psych mental status grossly normal, thought process normal, cooperative and affect normal Charges/Coding Multi Select Codes Urinary/Genital Urinary/Genital CPT Codes: 01454 CARE AFTER DELIVERY and No Charge Assessment & Plan (1) , delivered, current hospitalization: COMMENT: edley 39 PLAN: Follow up in office in 6 wks. (2) Positive GBS test: COMMENT: Treat in labor (3) Supervision of high-risk : QUALIFIERS: Trimester: third trimester Qualified Code(s): O09.93 - Supervision of high risk , unspecified, third trimester COMMENT: PRR, , ANDREA 04/27/25, PC He[place], [place] (4) Advanced maternal age (AMA) in : COMMENT: nsts after 36 weeks, deliver by 39 weeks 6 days based on ACOG guidelines for Factor V, ama, obesity, and LGA; 36 wk growth US shows AC is 93rd% PLAN: Plan s/p PPD # 1 1. routine post delivery care 2. breast feeding- support given 3. rh positive 4. rubella immune 5. d/c home today
[2025-04-22 13:45] VITALS: BP 105/83; PULSE 96; RESP 16; TEMP 36.6; O2SAT 98
== END 2025-04-22 14:00 | disposition home or self-care (01) | DRG 806 ==
LOC: WP 05:42
PROVIDERS: Admitting Provider Obstetrics & Gynecology; Visit Provider Obstetrics & Gynecology
DX: O36.63X0 Maternal care for excessive fetal growth, third trimester, not applicable or unspecified (principal); Z37.0 Single live birth; O99.12 Other diseases of the blood and blood-forming organs and certain disorders involving the immune mechanism complicating childbirth; D68.51 Activated protein C resistance; O98.52 Other viral diseases complicating childbirth; O99.214 Obesity complicating childbirth; O34.219 Maternal care for unspecified type scar from previous cesarean delivery; N96 Recurrent pregnancy loss; Z3A.39 39 weeks gestation of pregnancy; O99.824 Streptococcus B carrier state complicating childbirth; O69.81X0 Labor and delivery complicated by cord around neck, without compression, not applicable or unspecified; O99.893 Other specified diseases and conditions complicating puerperium; B33.8 Other specified viral diseases
CPT/HCPCS: 59025; 59050; 85025; 86780; 86850; 86900; 86901; 99221; A4216; G0378; J2405

== ENCOUNTER → 2025-06-05 | Outpatient (CLI) | payer SELFPAY ==
[2025-06-08 09:08] LABS: HPV APTIMA, High Risk Negative (Negative)
== END | disposition home or self-care (01) ==
LOC: LABSPEC 16:14
PROVIDERS: Visit Provider Student in an Organized Health Care Education/Training Program
DX: Z12.4 Encounter for screening for malignant neoplasm of cervix (principal)
CPT/HCPCS: 87624; 88175; G0145